=== PATIENT | male | born 1950 | race Caucasian/White ===

== ENCOUNTER 2016-12-06 23:13 | Inpatient (IN) | payer MEDICAID ==
[~2016-12-06] VITALS: Ht 170.2 cm; Wt 72.1 kg
[~2016-12-06 23:13] MED LIST: ALBU17I; ALBU1AER INH; AMLO10 PO; CIPR250 PO; CITA-48 PO; DUONI NEB; ECOT81TA2 PO; HYDR10TA23 PO; ISOS30 PO; LANTUS2P SC; LANTUSP SQ; LEVE500 PO; LOSA50 PO; LOVA40TA PO; METO50TA PO; NEUR100C PO; NITR.4 SL; NOVOLOGP2 SQ; OXYC1SOL5 PO; SYMB160A INH; Z.0.WALKERFRONT
[2016-12-06 23:15] VITALS: O2SAT 100; O2SAT 99
[2016-12-06 23:16] VITALS: BP 160/96; PULSE 128; RESP 20; TEMP 99.4; O2SAT 100
[2016-12-06 23:24] VITALS: RESP 20; O2SAT 100
[2016-12-06] MEDS ORDERED: FUROSEMIDE 40 MG/4 ML VIAL IVP ONE (23:30)
[2016-12-06] MEDS ORDERED: methylPREDNISolone SOD SUCC 125 MG/2 ML VIAL IVP ONE (23:30)
--- NOTE | 2016-12-06 23:35 | PD ---
HPI Chief Complaint: Respiratory Distress Time Seen by Provider: 23:19 Travel History International Travel<30 days: No Contact w/Intl Traveler<30days: No Traveled to known affect area: No History of Present Illness HPI The patient is Slovak-speaking and understands a little bit of Ethiopian. Patient was brought in emergently. Staff was used for translation given emergent nature of patient presentation. Patient's 18-year-old son was also used for translation as well as to obtain history. 66-year-old male with history of asthma, CHF, brought in by them was from home for chest pain and shortness of breath. EMS noted the patient to be in significant respiratory distress with bilateral wheezes and rales. He was started on CPAP and provided 3 albuterol treatments prior to arriving to the emergency department. Upon arrival the patient is in moderate respiratory distress, speaking a few words at a time. He reports feeling better on CPAP. He is having mild substernal chest pain. He was immediately switched to BiPAP. According to his son the patient has not been feeling well for the last couple of days with some episodes of coughing and shortness of breath. Symptoms seemed to progressively worsen throughout the day today. PFSH Past Medical History Asthma: Yes Blood Disorders: No Cancer: No Cardiovascular Problems: Yes High Cholesterol: Yes Chest Pain: Yes COPD: Yes Cerebrovascular Accident: Yes (CVA) Diabetes: Yes (TYPE 2) Patient Takes Glucophage: No Diminished Hearing: No Endocrine: No Gastrointestinal Disorders: Yes Genitourinary: No Headaches: Yes Hypertension: Yes Immune Disorder: No Musculoskeletal: Yes (L-SIDED WEAKNESS S/P CVA) Neurologic: Yes Psychiatric: No Reproductive: No Respiratory: Yes (ASTHMA) Immunizations Current: Yes Thyroid Disease: No Tetanus Vaccination: < 5 Years Influenza Vaccination: Yes PNEUMOCCOCAL Vaccine (Year): 3 Past Surgical History Abdominal Surgery: Yes Appendectomy: Yes Endocrine Surgery: No Neurologic Surgery: Yes (RUPTURED CEREBRAL ANYEURISM REPAIR, VENTRICULOSTOMY) Oral Surgery: Yes Other Surgery: Yes Social History Alcohol Use: No Tobacco Use: No Substance Use: No Allergies-Medications (Allergen,Severity, Reaction): Coded Allergies: No Known Allergies (Verified , 04/08/15) Reported Meds & Prescriptions Reported Meds & Active Scripts Active Reported Lantus Solostar Pen Inj (Insulin Glargine) 300 Unit/3 Ml Pen 1 Units SQ Novolog Inj (Insulin Aspart) 1,000 Unit/10 Ml Vial 12-15 Units SQ ACHS Max dose at bedtime:( )units; sugars less than 70,(0) units; sugars 150-199,(5) units; sugars 200-249,(10) units; sugars 250-299,(15) units; sugars 300-349,(20)units; sugars greater than 349,(25)units Citalopram (Citalopram Hydrobromide) 20 Mg Tab 20 Mg PO HS Lovastatin 40 Mg Tab 40 Mg PO DAILY Ventolin Hfa 18 GM Inh (Albuterol Sulfate) 90 Mcg/Act Aer 2 Puff INH Q4-6H PRN Lasix (Furosemide) 20 Mg Tab 20 Mg PO DAILY Aspirin EC (Aspirin) 81 Mg Tabdr 81 Mg PO DAILY Amlodipine (Amlodipine Besylate) 10 Mg Tab 10 Mg PO DAILY Losartan (Losartan Potassium) 50 Mg Tab 50 Mg PO DAILY Advair Hfa 12 GM Inh (Fluticasone-Salmeterol 12 GM Inh) 230-21 Mcg/Act Aer 2 Puff INH BID Review of Systems Except as stated in HPI: all other systems reviewed are Neg Physical Exam Narrative GENERAL: Well-developed, well-nourished, moderate to severe respiratory distress , speaking 1-2 words at a time, on CPAP SKIN: Focused skin assessment warm/dry. HEAD: Atraumatic. Normocephalic. EYES: Pupils equal and round. No scleral icterus. No injection or drainage. ENT: Mucous membranes pink and moist. NECK: Trachea midline. No JVD. CARDIOVASCULAR: Regular rate and rhythm. No murmur appreciated. RESPIRATORY: No accessory muscle use. On CPAP. Moderate to severe respiratory distress. Bilateral inspiratory and expiratory wheezes. Bilateral rales. GASTROINTESTINAL: Abdomen soft, non-tender, nondistended. MUSCULOSKELETAL: No obvious deformities. No clubbing. No cyanosis. Moderate bilateral lower extremity edema. NEUROLOGICAL: Awake and alert. No obvious cranial nerve deficits. Motor grossly within normal limits. Normal speech. PSYCHIATRIC: Appropriate mood and affect; insight and judgment normal. Data Data Last Documented VS Vital Signs Date Time Temp Pulse Resp B/P Pulse Ox O2 Delivery O2 Flow Rate FiO2 12/06/16 23:24 100 BiPAP 35 12/06/16 23:24 20 12/06/16 23:16 99.4 128 160/96 Orders Complete Blood Count With Diff (12/06/16 23:19) Comprehensive Metabolic Panel (12/06/16 23:19) B-Type Natriuretic Peptide (12/06/16 23:19) Act Partial Throm Time (Ptt) (12/06/16 23:19) Prothrombin Time / Inr (Pt) (12/06/16 23:19) Magnesium (Mg) (12/06/16 23:19) Ckmb (Isoenzyme) Profile (12/06/16 23:19) Troponin I (12/06/16 23:19) Arterial Blood Gas (Abg) (12/06/16 23:19) Blood Culture (12/06/16 23:19) Iv Access Insert/Monitor (12/06/16 23:) Ecg Monitoring (12/06/16 23:) Oximetry (12/06/16 23:) Oxygen Administration (12/06/16 23:19) Chest, Single Ap (12/06/16 23:19) Sodium Chloride 0.9% Flush (Ns Flush) (12/06/16 23:30) Furosemide Inj (Lasix Inj) (12/06/16 23:30) Methylprednisolone So Succ Inj (Solumedr (12/06/16 23:30) Albuterol-Ipratropium Neb (Duoneb Neb) (12/06/16 23:30) Resp Bipap / Cpap Non Invas Vt (12/06/16 23:19) Ceftriaxone Inj (Rocephin Inj) (12/07/16 00:00) Azithromycin Inj (Zithromax Inj) (12/07/16 00:00) Acetaminophen Supp (Tylenol Supp) (12/07/16 00:15) Sodium Chlor 0.9% 1000 Ml Inj (Ns 1000 M (12/07/16 00:01) Type And Screen (12/07/16 00:10) Sodium Chlor 0.9% 1000 Ml Inj (Ns 1000 M (12/07/16 00:30) Urinary Catheter Insert/Apply (12/07/16 00:22) Lactic Acid (12/07/16 00:29) CKMB (12/06/16 23:25) CKMB% (12/06/16 23:25) Labs Laboratory Tests Test 12/06/16 12/06/16 23:25 23:48 White Blood Count 7.2 TH/MM3 Red Blood Count 2.72 MIL/MM3 Hemoglobin 8.0 GM/DL Hematocrit 24.2 % Mean Corpuscular Volume 89.0 FL Mean Corpuscular Hemoglobin 29.2 PG Mean Corpuscular Hemoglobin 32.8 % Concent Red Cell Distribution Width 15.1 % Platelet Count 260 TH/MM3 Mean Platelet Volume 8.1 FL Neutrophils (%) (Auto) 78.8 % Lymphocytes (%) (Auto) 8.7 % Monocytes (%) (Auto) 10.3 % Eosinophils (%) (Auto) 1.6 % Basophils (%) (Auto) 0.6 % Neutrophils # (Auto) 5.7 TH/MM3 Lymphocytes # (Auto) 0.6 TH/MM3 Monocytes # (Auto) 0.7 TH/MM3 Eosinophils # (Auto) 0.1 TH/MM3 Basophils # (Auto) 0.0 TH/MM3 CBC Comment DIFF FINAL Differential Comment Prothrombin Time 10.7 SEC Prothromb Time International 1.0 RATIO Ratio Activated Partial 32.9 SEC Thromboplast Time Sodium Level 135 MEQ/L Potassium Level 4.9 MEQ/L Chloride Level 108 MEQ/L Carbon Dioxide Level 15.8 MEQ/L Anion Gap 11 MEQ/L Blood Urea Nitrogen 61 MG/DL Creatinine 7.77 MG/DL Estimat Glomerular Filtration 7 ML/MIN Rate Random Glucose 214 MG/DL Calcium Level 8.3 MG/DL Magnesium Level 1.7 MG/DL Total Bilirubin 0.3 MG/DL Aspartate Amino Transf 18 U/L (AST/SGOT) Alanine Aminotransferase 18 U/L (ALT/SGPT) Alkaline Phosphatase 122 U/L Total Creatine Kinase 607 U/L Troponin I 2.18 NG/ML B-Type Natriuretic Peptide 512 PG/ML Total Protein 7.6 GM/DL Albumin 2.8 GM/DL Blood Gas Patient Temperature 98.6 Blood Gas HCO3 14 mmol/L Blood Gas Base Excess -10.8 mmol/L Blood Gas Oxygen Saturation 95 % Arterial Blood pH 7.33 Arterial Blood Partial 27 mmHg Pressure CO2 Arterial Blood Partial 122 mmHG Pressure O2 Arterial Blood Oxygen Content 10.5 Vol % Arterial Blood 1.1 % Carboxyhemoglobin Arterial Blood Methemoglobin 1.8 % Blood Gas Hemoglobin 7.6 G/DL Oxygen Delivery Device NPPV Blood Gas Ventilator Setting IPAP12/EPAP5 Blood Gas Inspired Oxygen 35 % MDM Medical Decision Making Medical Screen Exam Complete: Yes Emergency Medical Condition: Yes Medical Record Reviewed: Yes Interpretation(s) EKG: Sinus, rate 1:30, leftward axis, RBBB which is old, anterior and lateral ST depressions, no ST segment elevations. Differential Diagnosis CHF, pulmonary edema, pneumonia, COPD exacerbation, pneumothorax, PE, ACS Narrative Course Initial vital signs show heart rate 128, blood pressure 160/96, pulse ox 100% on 50% FiO2 on BiPAP, axillary temp of 99.4F. CBC shows WBC 7.2, hemoglobin 8, hematocrit 24.2, platelets 260, neutrophils 79% . Rectal exam shows heme-negative brown stool. CMP: BUN 61, creatinine 7.77, GFR 7, random glucose 214. Troponin is 2.18. CK is 600. Liter of normal saline bolus ordered. Young catheter will be placed to measure accurate output. Chest x-ray: Bilateral lower lobe consolidation. Patient was started on Rocephin and azithromycin. He was also started on CPAP EMS and continued on BiPAP while in the emergency department. He was given 40 mg of IV Lasix, 3 DuoNeb treatments, and IV Solu-Medrol. He reports that his breathing is improved. He is still requiring BiPAP. Patient, the patient's son, the patient's were made aware of all findings. Patient is still requiring BiPAP. He will be admitted to the ICU for further treatment and evaluation of sepsis, pneumonia, respiratory distress, NSTEMI, acute renal insufficiency. Case discussed with vending supervisor Dr. Garcia who will admit the patient to his service. Critical Care Narrative Aggregate critical care time was 45 minutes. Time to perform other separately billable procedures was not included in the critical care time. My time did not include minutes spent treating any other patients simultaneously or on activities that did not directly contribute to the patient's treatment. The services I provided to this patient were to treat and/or prevent clinically significant deterioration that could result in: , permanent disability, acute respiratory failure. I provided critical care services requiring my management, as noted below: Chart data review, documentation time, medication orders and management, vital sign assessments/reviewing monitor data, ordering and reviewing lab tests, ordering and interpreting/reviewing x-rays and diagnostic studies, care of the patient and discussion of the patient with the admitting physicians. HemaPrompt Point of Care Internal Pos. & Neg. Controls: Passed Fecal Specimen Occult Blood: Negative Comment Heme-negative brown stool. Diagnosis Primary Impression: Sepsis Qualified Code: A41.9 - Sepsis, due to unspecified organism Additional Impressions: Pneumonia Qualified Code: J18.9 - Pneumonia of both lower lobes due to infectious organism Respiratory distress Anemia Qualified Code: D64.89 - Anemia due to other cause, not classified ARF (acute renal failure) Qualified Code: N17.9 - Acute renal failure, unspecified acute renal failure type NSTEMI (non-ST elevated myocardial infarction) Admitting Information Admitting Physician Requests: Jacques Ring MD Dec 06, 2016 23:35
[2016-12-06] MEDS: SODIUM CHLORIDE 0.9% FLUSH 10 ML FLUSH IVF PRN (23:38)
[2016-12-06] MEDS: RESP: ALBUTEROL 2.5 MG/IPRATROPIUM 0.5 MG NEB (SCH) INH ×2 (23:39→23:40)
[2016-12-06] MEDS ORDERED: VENTAER INH (23:43)
[2016-12-06] MEDS ORDERED: AMLO10TA2 PO (23:43)
[2016-12-06] MEDS ORDERED: NOVOLOGP2 SQ (23:43)
[2016-12-06] MEDS ORDERED: CITA20TA4 PO (23:43)
[2016-12-06] MEDS ORDERED: ASPI81TA11 PO (23:43)
[2016-12-06] MEDS ORDERED: LOSA50TA PO (23:43)
[2016-12-06] MEDS ORDERED: LOVA40TA PO (23:43)
[2016-12-06] MEDS ORDERED: LANTINJ SQ (23:43)
[2016-12-06] MEDS ORDERED: FURO1TAB62 PO (23:43)
[2016-12-06] MEDS ORDERED: ADVA230A INH (23:43)
--- NOTE | 2016-12-06 23:52 | RADRPT ---
EXAM DATE/TIME: 12/06/2016 23:29 [facility] COMPARISON: CHEST SINGLE AP, April 08, 2015, 20:45. INDICATIONS : Short of breath. MEDICAL HISTORY : Hypertension. Diabetes. Coronary artery disease SURGICAL HISTORY : Ventriculostomy. Cerebral aneurysm repair. ENCOUNTER: Initial ACUITY: 1 day PAIN SCORE: Non-responsive. LOCATION: Bilateral chest FINDINGS: There is bilateral lower lobe consolidation and cardiomegaly. Shunt catheter tubing overlies the righ t chest. Degenerative changes of the spine. CONCLUSION: Bilateral lower lobe consolidation. Sarabjit Tinsley MD on December 06, 2016 at 23:50 Board Certified Radiologist. This report was verified electronically.
[2016-12-07] VITALS (24 sets, daily range): BP systolic 115–183; BP diastolic 60–106; PULSE 90–135; RESP 15–21; TEMP 97–99.4; O2SAT 92–100
[2016-12-07] LABS: BLOOD GAS BASE EXCESS -10.8 mmol/L (-2-2); BLOOD GAS CARBOXYHEMOGLOBIN 1.1 % (0-4); BLOOD GAS HCO3 14 mmol/L (22-26); BLOOD GAS METHEMOGLOBIN 1.8 % (0-2); BLOOD GAS O2 HGB SATURATION 95 % (90-100); BLOOD GAS OXYGEN CONTENT 10.5 Vol % (12.0-20.0); BLOOD GAS PCO2 27 mmHg (38-42); BLOOD GAS PO2 122 mmHG (61-120); BLOOD GAS TOTAL HGB 7.6 G/DL (12.0-16.0); TEMP CORR TO 98.6
[2016-12-07] MEDS ORDERED: cefTRIAXone INJ 1,000 MG in SODIUM CHLORIDE 0.9% INJ 100 ML IV ONE ×2
[2016-12-07] MEDS ORDERED: AZITHROMYCIN INJ 500 MG in SODIUM CHLOR 0.9% 250 ML INJ 250 ML IV ONE ×2
[2016-12-07 00:01] LABS: CRITICAL VALUE YES; FIO2 35 %; NUMBER OF ARTERIAL PUNCTURES 1; OXYGEN DEVICE NPPV; STAT YES; ULNAR PULSE PRESENT; VENT SETTINGS IPAP12/EPAP5
[2016-12-07] MEDS ORDERED: SODIUM CHLOR 0.9% 1000 ML INJ 1,000 ML IV SCH ×2 (00:01→15:28)
[2016-12-07 00:06] LABS: AUTOMATED NEUTROPHIL # 5.7 TH/MM3 (1.8-7.7); BASOPHIL % 0.6 % (0.0-2.0); EOSINOPHIL # 0.1 TH/MM3 (0-0.4); EOSINOPHIL % 1.6 % (0.0-4.0); HEMATOCRIT 24.2 % (39.0-51.0); HEMO FLAGS DIFF FINAL; LYMPH % 8.7 % (9.0-44.0); LYMPHOCYTE # 0.6 TH/MM3 (1.0-4.8); MEAN CORPUSCULAR HEMOGLOBIN 29.2 PG (27.0-34.0); MEAN CORPUSCULAR HGB CONC 32.8 % (32.0-36.0); MONO % 10.3 % (0.0-8.0); NEUT % 78.8 % (16.0-70.0); PLATELET COUNT 260 TH/MM3 (150-450); RED BLOOD COUNT 2.72 MIL/MM3 (4.50-5.90); RED CELL DISTRIBUTION WIDTH 15.1 % (11.6-17.2); WHITE BLOOD COUNT 7.2 TH/MM3 (4.0-11.0)
[2016-12-07] MEDS ORDERED: ACETAMINOPHEN 650 MG SUPP RECTAL ONE (00:15)
[2016-12-07 00:18] LABS: ANION GAP 11 MEQ/L (5-15); AST (GOT) 18 U/L (15-37); BICARBONATE 15.8 MEQ/L (21.0-32.0); BLOOD UREA NITROGEN 61 MG/DL (7-18); CHLORIDE 108 MEQ/L (98-107); GLOMERULAR FILTRATION RATE 7 ML/MIN (>89); MAGNESIUM 1.7 MG/DL (1.5-2.5); POTASSIUM 4.9 MEQ/L (3.5-5.1); SODIUM (NA) 135 MEQ/L (136-145)
[2016-12-07 00:19] LABS: ALT (GPT) 18 U/L (12-78)
[2016-12-07 00:20] LABS: APTT (PATIENT) 32.9 SEC (24.3-30.1); PROTHROMBIN TIME - PATIENT 10.7 SEC (9.8-11.6)
[2016-12-07 00:23] LABS: ALKALINE PHOSPHATASE 122 U/L (45-117); CREATINE KINASE 607 U/L (39-308); TOTAL BILIRUBIN ADULT 0.3 MG/DL (0.2-1.0)
[2016-12-07] MEDS ORDERED: SODIUM CHLOR 0.9% 1000 ML INJ 1,000 ML IV ONE (00:30)
[2016-12-07 00:44] LABS: CKMB 9.8 NG/ML (0.5-3.6)
[2016-12-07] MEDS ORDERED: MISCELLANEOUS NURSING INFORMATION XX SCH ×2 (00:45→15:30)
[2016-12-07] MEDS ORDERED: DEXTROSE 50% IN WATER 50 ML VIAL(D50) IV PUSH PRN (00:45)
[2016-12-07] MEDS ORDERED: CHLORHEXIDINE GLUCONATE 2 % 1 PACK (2 CLOTHS) TOP PRN ×2 (00:45→15:30)
[2016-12-07] MEDS ORDERED: RESP: ALBUTEROL 2.5 MG/IPRATROPIUM 0.5 MG NEB (PRN) INH (00:45)
[2016-12-07] MEDS ORDERED: ONDANSETRON HCL 4 MG/2 ML VIAL IV PRN (00:45)
[2016-12-07] MEDS: SODIUM CHLOR 0.9% 1000 ML INJ 1,000 ML IV SCH ×2 (01:55→11:45)
[2016-12-07] MEDS: HEPARIN-D5W 25,000 U/250 ML 250 ML IV SCH (02:05)
[2016-12-07 02:23] LABS: HEMATOCRIT 22.4 % (39.0-51.0); MEAN CORPUSCULAR HEMOGLOBIN 30.2 PG (27.0-34.0); MEAN CORPUSCULAR HGB CONC 34.4 % (32.0-36.0); PLATELET COUNT 234 TH/MM3 (150-450); RED BLOOD COUNT 2.55 MIL/MM3 (4.50-5.90); REVIEW FLAG FINAL; WHITE BLOOD COUNT 8.5 TH/MM3 (4.0-11.0)
--- NOTE | 2016-12-07 02:23 | HHI.HP ---
HPI Service Critical Care Medicine Primary Care Physician No Primary Care Physician Admission Diagnosis sepsis, NSTEMI, pneumonia, renal failure, respiratory distress Diagnosis: Chief Complaint: shortness of breath Travel History International Travel<30 Days: No Contact w/Intl Traveler <30 Da: No Traveled to Known Affected Are: No History of Present Illness This patient is georgian speaking only, and his family was not available to assist in interpretation. In addition, he is in respiratory distress on my evaluation, and additional history is unobtainable from the patient. Per report , this is a 66yM with a history of CHF and prior NSTEMI who presented for shortness of breath. He was hypoxic in ER and placed on BiPAP. He was febrile in the ER. His laboratory data is significant for a leukocytosis, lactic acidosis, Cr 7.7, troponin of 2. Review of Systems ROS Limitations: Clinical Condition, Language Barrier Past Family Social History Allergies: Coded Allergies: No Known Allergies (Verified , 04/08/15) Past Medical History Asthma High cholesterol CVA Type 2 DM Headaches Hypertension L sided weakness s/p CVA Past Surgical History Appendectomy Ruptured cerebral aneurysm Ventriculostomy Reported Medications Lantus Solostar Pen Inj (Insulin Glargine) 300 Unit/3 Ml Pen 1 Units SQ Novolog Inj (Insulin Aspart) 1,000 Unit/10 Ml Vial 12-15 Units SQ ACHS Max dose at bedtime:( )units; sugars less than 70,(0) units; sugars 150-199,(5) units; sugars 200-249,(10) units; sugars 250-299,(15) units; sugars 300-349,(20)units; sugars greater than 349,(25)units Citalopram (Citalopram Hydrobromide) 20 Mg Tab 20 Mg PO HS Lovastatin 40 Mg Tab 40 Mg PO DAILY Ventolin Hfa 18 GM Inh (Albuterol Sulfate) 90 Mcg/Act Aer 2 Puff INH Q4-6H PRN Lasix (Furosemide) 20 Mg Tab 20 Mg PO DAILY Aspirin EC (Aspirin) 81 Mg Tabdr 81 Mg PO DAILY Amlodipine (Amlodipine Besylate) 10 Mg Tab 10 Mg PO DAILY Losartan (Losartan Potassium) 50 Mg Tab 50 Mg PO DAILY Advair Hfa 12 GM Inh (Fluticasone-Salmeterol 12 GM Inh) 230-21 Mcg/Act Aer 2 Puff INH BID Active Ordered Medications See MAR Family History unknown and unobtainable secondary to the clinical condition of the patient. Social History per chart review, no etoh, tob, doa. Physical Exam Vital Signs Vital Signs Date Time Temp Pulse Resp B/P Pulse Ox O2 Delivery O2 Flow Rate FiO2 12/07/16 01:36 99.3 116 21 183/88 99 BiPAP 35 12/07/16 01:31 99 35 12/07/16 00:57 99.3 119 21 169/83 99 BiPAP 35 12/06/16 23:24 100 BiPAP 35 12/06/16 23:24 20 100 BiPAP 35 12/06/16 23:16 99.4 128 20 160/96 100 12/06/16 23:15 99 50 12/06/16 23:15 100 BiPAP 50 Physical Exam GENERAL: Obese middle-aged male, sitting in bed, BiPAP in place, respiratory distress HEENT: Normocephalic. Atraumatic. Pupils equal, round, reactive, conjugate. Mucous membranes are moist NECK: Trachea is midline. There is no JVD. CHEST: BiPAP in place. Labored. Tachypneic CARDIOVASCULAR: Normal rate, regular rhythm ABDOMEN: Soft, nontender, nondistended. No guarding. MUSCULOSKELETAL: Pulses 2+. No peripheral edema. NEUROLOGICAL: RASS -1. fc x 4. Laboratory Laboratory Tests Test 12/06/16 12/06/16 12/07/16 23:25 23:48 01:00 White Blood Count 7.2 Red Blood Count 2.72 Hemoglobin 8.0 Hematocrit 24.2 Mean Corpuscular Volume 89.0 Mean Corpuscular Hemoglobin 29.2 Mean Corpuscular Hemoglobin 32.8 Concent Red Cell Distribution Width 15.1 Platelet Count 260 Mean Platelet Volume 8.1 Neutrophils (%) (Auto) 78.8 Lymphocytes (%) (Auto) 8.7 Monocytes (%) (Auto) 10.3 Eosinophils (%) (Auto) 1.6 Basophils (%) (Auto) 0.6 Neutrophils # (Auto) 5.7 Lymphocytes # (Auto) 0.6 Monocytes # (Auto) 0.7 Eosinophils # (Auto) 0.1 Basophils # (Auto) 0.0 CBC Comment DIFF FINAL Differential Comment Prothrombin Time 10.7 Prothromb Time International 1.0 Ratio Activated Partial 32.9 Thromboplast Time Sodium Level 135 Potassium Level 4.9 Chloride Level 108 Carbon Dioxide Level 15.8 Anion Gap 11 Blood Urea Nitrogen 61 Creatinine 7.77 Estimat Glomerular Filtration 7 Rate Random Glucose 214 Calcium Level 8.3 Magnesium Level 1.7 Total Bilirubin 0.3 Aspartate Amino Transf 18 (AST/SGOT) Alanine Aminotransferase 18 (ALT/SGPT) Alkaline Phosphatase 122 Total Creatine Kinase 607 Creatine Kinase MB 9.8 Creatine Kinase MB % 1.6 Troponin I 2.18 B-Type Natriuretic Peptide 512 Total Protein 7.6 Albumin 2.8 Blood Gas Patient Temperature 98.6 Blood Gas HCO3 14 Blood Gas Base Excess -10.8 Blood Gas Oxygen Saturation 95 Arterial Blood pH 7.33 Arterial Blood Partial 27 Pressure CO2 Arterial Blood Partial 122 Pressure O2 Arterial Blood Oxygen Content 10.5 Arterial Blood 1.1 Carboxyhemoglobin Arterial Blood Methemoglobin 1.8 Blood Gas Hemoglobin 7.6 Oxygen Delivery Device NPPV Blood Gas Ventilator Setting IPAP12/EPAP5 Blood Gas Inspired Oxygen 35 Lactic Acid Level 2.2 Date/Time Procedure Status Source Growth 12/06/16 23:25 Aerobic Blood Culture Received Blood Peripheral Pending 12/06/16 23:25 Anaerobic Blood Culture Received Blood Peripheral Pending Result Diagram: 12/06/[id number] Imaging Last Impressions Chest X-Ray 12/06/162318 Signed Impressions: Service Date/Time: Tuesday, December 06, 2016 23:29 - CONCLUSION: Bilateral lower lobe consolidation. Sarabjit Tinsley MD Assessment and Plan Assessment and Plan Assessment: 66yM with acute bibasilar community acquired pneumonia, severe sepsis, lactic acidosis, acute kidney injury, acute hypoxic respiratory failure , multi-organ system failure, NSTEMI. very critically ill. Plan by systems: Neurologic: Tylenol as needed for pain or fever Respiratory: Acute hypoxic respiratory failure COPD exacerbation Bilateral lower lobe pneumonias Community acquired pneumonia BiPAP Steroids Wean FiO2 for SPO2 greater than 90% Antibiotics described below Nebs Cardiovascular: Severe sepsis NSTEMI Critical care bedside echocardiography 12/07: Mildly depressed LVEF no grossly obvious regional wall motion abnormalities, normal RV function, decompressed RV , no pericardial effusion -- heparin drip -- trend troponins -- consult cardiology Renal: New severe acute kidney injury Consult nephrology urine lytes -- urine eos -- renal ultrasound -- meadows with q1h uop -- Strict I/Os FEN/GI: Severe sepsis Intravascular hypovolemia NS at 100 cc an hour Daily BMP Nothing by mouth Heme/ID: Community acquired bilateral lower lobe pneumonia Severe sepsis Rocephin and azithromycin Mills culture Daily CBC Endocrine: Type 2 diabetes -- SSI Prophylaxis: GI Prophylaxis Protonix DVT Prophylaxis -- SCDs Heparin drip Lines: Peripheral IVs. May require central access Dispo: Admit to the ICU This patient remains critically ill with one or more organ systems which are or may become a threat to life. I have spent in excess of 78 minutes discontinuously in the care and management of this patient. This time is exclusive of procedures, and includes, but is not limited to, evaluation of the patient, review of the medical record, discussions with family, consultants, nursing staff, or respiratory therapy, and documentation in the medical record. Code Status Full Code Nas Garcia MD Dec 07, 2016 02:23
[2016-12-07 02:35] LABS: APTT (PATIENT) 33.2 SEC (24.3-30.1)
[2016-12-07] MEDS: RESP: ALBUTEROL 2.5 MG/IPRATROPIUM 0.5 MG NEB (SCH) INH ×4 (03:03→21:22)
[2016-12-07] MEDS: CHLORHEXIDINE GLUCONATE 2 % 1 PACK (2 CLOTHS) TOP SCH (03:52)
[2016-12-07] MEDS: INSULIN NovoLIN REGULAR SUPPLEMENTAL SCALE SQ SCH ×3 (06:00→17:37)
[2016-12-07 06:40] LABS: DRAW SITE RT RADIAL
[2016-12-07 06:41] LABS: BLOOD GAS BASE EXCESS -11.6 mmol/L (-2-2); BLOOD GAS HCO3 13 mmol/L (22-26); BLOOD GAS METHEMOGLOBIN 2.2 % (0-2); BLOOD GAS O2 HGB SATURATION 95 % (90-100); BLOOD GAS PCO2 26 mmHg (38-42); BLOOD GAS PO2 120 mmHg (61-120); BLOOD GAS TOTAL HGB 11.1 G/DL (12.0-16.0); TEMP CORR TO 98.6
[2016-12-07 06:42] LABS: CRITICAL VALUE YES; DRAW SITE RT RADIAL; FIO2 35 %; NUMBER OF ARTERIAL PUNCTURES 1; OXYGEN DEVICE BiPAP; STAT NO; ULNAR PULSE PRESENT; VENT SETTINGS 10IPAP/5EPAP
[2016-12-07] MEDS: methylPREDNISolone SOD SUCC 125 MG/2 ML VIAL IV PUSH SCH ×2 (08:57→20:13)
[2016-12-07] MEDS: SODIUM CHLORIDE 0.9% FLUSH 10 ML FLUSH IVF PRN (08:58)
--- NOTE | 2016-12-07 09:05 | RADRPT ---
EXAM DATE/TIME: 12/07/2016 07:54 [facility] COMPARISON: US KIDNEY/RENAL/BLADDER, January 28, 2015, 20:59. INDICATIONS : Increased Bun and Creatinine. MEDICAL HISTORY : CVA. Ruptured cerebral aneurysm. Hypercholesterol. Hypertension. COPD. SURGICAL HISTORY : Appendectomy. Cerebral aneurysm repair. Ventriculostomy. ENCOUNTER: Initial ACUITY: 1 day PAIN SCORE: 0/10 LOCATION: Bilateral flank MEASUREMENTS: RIGHT KIDNEY: 10.7 x 5.7 x 4.1 cm LEFT KIDNEY: 10.3 x 4.8 x 6.1 cm FINDINGS: RIGHT KIDNEY: Renal cortex is normal in thickness and echotexture. No hydronephrosis, stone, or mass. LEFT KIDNEY: Renal cortex is normal in thickness and echotexture. No hydronephrosis, stone, or mass. BLADDER: Young catheter in bladder. Bladder decompressed. CONCLUSION: Unremarkable and stable bilateral renal ultrasound. No evidence of hydronephrosis. Baron Medrano MD on December 07, 2016 at 9:03 Board Certified Radiologist. This report was verified electronically.
[2016-12-07 11:25] LABS: BLOOD, URINE LARGE (NEG); GLUCOSE,URINE 70 mg/dL (NEG); HYALINE CAST, URINE 2 /lpf (RARE); KETONE, URINE NEG (NEG); NITRITE,URINE NEG (NEG); URINE COLOR YELLOW (YELLW/STRAW)
[2016-12-07 11:31] LABS: BACTERIA, URINE OCC /hpf; COMMENT (UR) CATH
--- NOTE | 2016-12-07 11:55 | EKG ---
Date Performed: 12/06/2016 Time Performed: 23:18:27 PTAGE: 66 years EKG: Sinus tachycardia Right bundle branch block Anterior ST depressions are new from the old tr acing, and consistent with ischemia. Clinical correlation advised. PREVIOUS TRACING : 04/09/2015 19.46 DOCTOR: Abdi Garcia Interpretating Date/Time 12/07/2016 11:53:28
[2016-12-07] MEDS ORDERED: ETOMIDATE 20 MG/10 ML VIAL ONE (13:23)
[2016-12-07] MEDS ORDERED: ROCURONIUM INJ 50 MG/5 ML VIAL ONE ×2 (13:24→13:41)
[2016-12-07] MEDS ORDERED: PROPOFOL 1000 MG/100 ML INJ 100 ML ONE (13:43)
--- NOTE | 2016-12-07 14:35 | RADRPT ---
EXAM DATE/TIME: 12/07/2016 13:45 [facility] COMPARISON: CHEST SINGLE AP, December 06, 2016, 23:29. INDICATIONS : Post intubation. MEDICAL HISTORY : CVA. Ruptured cerebral aneurysm. Hypercholesterol. Hypertension. COPD. SURGICAL HISTORY : Appendectomy. Cerebral aneurysm repair. Ventriculostomy. ENCOUNTER: Subsequent ACUITY: 1 day PAIN SCORE: 0/10 LOCATION: Bilateral chest FINDINGS: A single view of the chest demonstrates the endotracheal tube to be in good position. There is no pne umothorax. There is an NG tube in the stomach. There is bilateral interstitial infiltrates. The heart size is stable. The bony structures are stable.. CONCLUSION: 1. The endotracheal tube and NG tube appear to be in good position. 2. No pneumothorax. Baron Medrano MD on December 07, 2016 at 14:32 Board Certified Radiologist. This report was verified electronically.
[2016-12-07] MEDS ORDERED: ROCURONIUM INJ 100 MG/10 ML VIAL IV ONE (14:45)
[2016-12-07] MEDS ORDERED: ETOMIDATE 40 MG/20 ML VIAL IV PUSH ONE (14:45)
--- NOTE | 2016-12-07 15:21 | PD.PROCEDR ---
Central Line Procedure REASON FOR PROCEDURE Central venous access PROCEDURE PERFORMED Central line placement: Left IJ CVL CONSENT Informed consent for procedure was obtained. The risks and benefits of the procedure were discussed to include but limited to bleeding, clot formation, infection, and even . ANESTHESIA Local injection of 1% Lidocaine DESCRIPTION OF THE PROCEDURE The patient was placed in supine, mild Trendelenburg position. The area was exposed and cleansed with ChloraPrep, times two. Large sterile drape was used to cover the patient, with the site exposed, under sterile conditions including cap, face mask, sterile gown, and sterile gloves. On second attempt, the introducer needle was inserted with negative pressure in syringe and venous flash was obtained. The guide wire was then advanced after second insertion attempt without any restriction and the needle was removed. The dilator was used without any complications. Using Seldinger technique the antibiotic coated triple-lumen catheter was advanced over the guide wire to a depth of 20 centimeters. The guide wire was removed. All ports were aspirated with dark venous blood return and flushed easily with sterile saline. All ports were capped. Antibiotic disc was placed around central line at puncture site. The central line was secured to the skin with two interrupted 2.0 silk sutures. The area was bandaged with sterile see-through central line bandage. RADIOLOGICAL DATA Ultrasound guidance was used to locate left internal jugular vein. Doppler/ color flow was used to confirm venous flow. COMPLICATIONS: No apparent complications ESTIMATED BLOOD LOSS: Less than 10 cc. Jeronimo Robertson MD Dec 07, 2016 15:21
--- NOTE | 2016-12-07 15:22 | PD.PROCEDR ---
Procedure Note Procedure DATE: 12/07/2016 PROCEDURE: Orotracheal intubation INDICATION: Acute hypoxemic respiratory failure DETAILS OF PROCEDURE The patient was placed in optimal position and preoxygenated with 100% FiO2 via bag valve mask. At the start oxygen saturation was 100 %. The patient was administered 20 mg etomidate IV and 50 mg rocuronium IV. I entered the oropharynx with a size 4 GVL glidescope blade and obtained a grade 2 view of the airway. On single attempt a size 8.0 cuffed endotracheal tube was passed through the vocal cords. Correct tube location was confirmed with end tidal CO2 detector and by auscultating over bilateral lung boothe. The endotracheal tube was secured with adhesive tape at a depth of 24 cm at the lips. The patient was connected to the ventilator. The patient tolerated the procedure well without any apparent complications. Oxygen saturations were maintained greater than 95% all times. STAT chest x-ray pending at time of dictation. Jeronimo Robertson MD Dec 07, 2016 15:22
[2016-12-07] MEDS ORDERED: SODIUM CHLORIDE 0.9% FLUSH 10 ML FLUSH IVF PRN (15:30)
[2016-12-07] MEDS ORDERED: BISACODYL 10 MG SUPP RECTAL PRN (15:30)
[2016-12-07] MEDS ORDERED: ETOMIDATE 20 MG/10 ML VIAL IV PUSH ONE (16:00)
[2016-12-07] MEDS ORDERED: ROCURONIUM INJ 50 MG/5 ML VIAL IV PUSH ONE (16:00)
--- NOTE | 2016-12-07 16:14 | RADRPT ---
EXAM DATE/TIME: 12/07/2016 15:30 [facility] COMPARISON: CHEST SINGLE AP, December 07, 2016, 13:45. INDICATIONS : Central line placement. MEDICAL HISTORY : Hypertension. cerebrovascular accident, SURGICAL HISTORY : cerebral aneurysm ENCOUNTER: Initial ACUITY: 2 days PAIN SCORE: Non-responsive. LOCATION: Bilateral chest FINDINGS: A left central line has been placed. The central line appears in good position. No pneumothorax. The other support devices remain in place. There continues to bilateral interstitial pulmonary infiltrate s. CONCLUSION: No pneumothorax. Baron Medrano MD on December 07, 2016 at 16:12 Board Certified Radiologist. This report was verified electronically.
[2016-12-07 16:24] LABS: BLOOD GAS BASE EXCESS -13.5 mmol/L (-2-2); BLOOD GAS CARBOXYHEMOGLOBIN 0.9 % (0-4); BLOOD GAS HCO3 13 mmol/L (22-26); BLOOD GAS METHEMOGLOBIN 2.2 % (0-2); BLOOD GAS O2 HGB SATURATION 95 % (90-100); BLOOD GAS OXYGEN CONTENT 11.1 Vol % (12.0-20.0); BLOOD GAS PCO2 37 mmHg (38-42); BLOOD GAS PO2 186 mmHg (61-120); OXYGEN DEVICE VENTILATOR; TEMP CORR TO 98.6
[2016-12-07 16:25] LABS: DRAW SITE RT RADIAL; FIO2 70 %; NUMBER OF ARTERIAL PUNCTURES 1; STAT NO; ULNAR PULSE PRESENT
[2016-12-07] MEDS ORDERED: SODIUM BICARBONATE 8.4% INJ 50 MEQ/50 ML SYR IV PUSH ONE (16:30)
[2016-12-07] MEDS: PROPOFOL 1000 MG/100 ML INJ 100 ML IV SCH ×2 (16:40→18:59)
[2016-12-07] MEDS: fentaNYL DRIP 250 ML IV SCH (16:41)
[2016-12-07] MEDS: SODIUM CHLORIDE 0.9% FLUSH 10 ML FLUSH IVF SCH (16:42)
[2016-12-07] MEDS: SODIUM BICARBONATE 8.4% INJ 100 MEQ in WATER STERILE FOR INJ 850 ML IV SCH (17:39)
[2016-12-07] MEDS: ARTIFICIAL TEARS OPTH SOLN 15 ML BTL EACH EYE SCH (18:00)
[2016-12-07 18:48] LABS: BICARBONATE 17.5 MEQ/L (21.0-32.0); MAGNESIUM 1.8 MG/DL (1.5-2.5)
[2016-12-07 18:58] LABS: POTASSIUM 7.1 MEQ/L (3.5-5.1)
--- NOTE | 2016-12-07 19:04 | MB ---
cc: CODY HEWITT MD DATE OF CONSULTATION: 12/07/2016. REASON FOR CONSULTATION: Elevated BUN and creatinine for evaluation. HISTORY OF PRESENT ILLNESS: This is 66-year-old male with past medical history of hypertension, diabetes mellitus, history of cerebrovascular accident with left-sided weakness, hyperlipidemia, bronchial asthma, chronic kidney disease who was admitted because of shortness of breath and chest pain. I was called to see the patient because of elevated BUN and creatinine. The patient was diagnosed here with non-ST elevation [place]. The patient has history of chronic kidney disease. He was seen by me when he was admitted in March. He has a baseline creatinine that seems to be close to 2.0 to 2.2 and this was in March of 2015 and April of 2015. Now he came with a creatinine of 7.7. The patient developed respiratory failure and he was intubated. He also has metabolic acidosis with low bicarbonate and lactic acid of 2.2. The patient is getting IV fluids with sodium bicarbonate. His urine output is adequate. He is also getting antibiotics. The patient is intubated and sedated and is not able to give any history. Most of the history was taken from the patient's chart. PAST MEDICAL HISTORY: 1. Hypertension. 2. Diabetes mellitus. 3. Morbid obesity. 4. History of cerebrovascular accident. 5. Chronic kidney disease. 6. Hyperlipidemia. 7. Bronchial asthma. PAST SURGICAL HISTORY: 1. Appendectomy. 2. History of ruptured cerebral aneurysm. 3. Ventriculostomy. REVIEW OF SYSTEMS: A review of systems cannot be taken since the patient is intubated. SOCIAL HISTORY: There is no history of smoking or alcoholism. FAMILY HISTORY: The family history is not available. ALLERGIES: HE HAS NO KNOWN DRUG ALLERGIES. MEDICATIONS: Currently he is on the following medications: 1. IV fluids with sodium bicarbonate 150/hour. 2. Sara-Colace one tablet twice a day. 3. Peridex. 4. . 5. Protonix 40 milligrams IV daily. 6. DuoNeb nebulizer. 7. Methylprednisolone 60 milligrams q. 12 hours. 8. Azithromycin 500 milligrams q. 12 hours. 9. Ceftriaxone IV q. 24 hours. 10. Zofran as needed. PHYSICAL EXAMINATION: GENERAL: On examination, the patient is intubated and sedated. VITAL SIGNS: His last blood pressure is 162/88, temperature is 99.1, oxygen saturation is 97%, FIO2 is 97% to 100%. The blood pressure has been on the higher side all along during this admission. HEAD, EYES, EARS, NOSE, THROAT: The pupils are mid constricted. Nonicteric sclerae. Conjunctivae are pale. NECK: The neck is supple. JVD is not elevated. LUNGS: The patient has bilateral decreased air entry with scattered wheezing. HEART: S1 and S2 regular rhythm. ABDOMEN: Abdomen is obese, soft and lax. There is no tenderness. EXTREMITIES: There is no edema. LABORATORY INVESTIGATIONS: White blood cell count is 8.5, hemoglobin 7.7, platelet count 234,000. Sodium 135, potassium 4.9, chloride 108, bicarbonate 15.8, BUN 61, creatinine 7.7. BMP repeat is pending. Glucose 214. Lactic acid is 2.2. Calcium is 8.3. Magnesium 1.7. Creatine kinase 6.7. Troponin I is 2.18. Total protein is 7.6, albumin 2.8. Serum osmolality is 320. Repeat troponin is 2.4. PTT is 33.2. Urinalysis showing protein of 300. Previously he had normal complements and MERLY is negative. Cultures are all negative so far. IMAGING STUDIES: The patient has a chest x-ray done on admission that shows bilateral lower lobe consolidation. Ultrasound of the kidneys was done that shows both kidneys are normal in size and no evidence of hydronephrosis. ASSESSMENT: 1. Chronic kidney disease / acute kidney injury. 2. Non S-T elevation myocardial infarction. 3. Pneumonia and respiratory failure. 4. Metabolic acidosis. 5. Hypovolemia. 6. Diabetes mellitus. 7. History of hypertension. 8. Anemia. The patient has history of chronic kidney disease and his workup in the past showing serum protein electrophoresis was negative. Complements are normal and MERLY was negative. He has proteinuria. Most likely he has underlying diabetic or hypertensive renal disease. There must be an element of acute kidney injury that could be related to acute tubular necrosis or interstitial nephritis. Now he is passing more urine. A repeat Basic metabolic profile is pending. Continue the IV hydration. Avoid any nephrotoxins. Antibiotics. Thank you for the consultation, and I will follow the patient while he is in the hospital. MD APLPE Basurto/GABRIELE /6:33 PM /6:45 PM
--- NOTE | 2016-12-07 19:25 | ECHRPT ---
Indication: HEART FAILURE CONCLUSIONS Mildly dilated left ventricle. Wall thickness is normal. The left ventricular systolic function is normal with an estimated ejection fraction is 45-50%. There is distinct regional wall motion abnormalities with akinetic apex and possibly clot at the ape x. Consider repeating study with contrast/Definity to better asses apex The right ventriclar size is upper limits of normal. The left atrial size is moderately dilated. The right atrial size is moderately dilated. [id number] mitral valve regurgitation. There is mild tricuspid valve regurgitation. There is estimated mild pulmonary hypertension present (range 40-50 mmHg). The pulmonary valve is not well visualized. The inferior vena cava is dilated. There is less than 50% respiratory change in dimension of the inferior vena cava (abnormal). BP: / HR: Rhythm: Atrial fibrillation MEASUREMENTS (Male / Female) Normal Values Technical Quality:Fair 2D ECHO LVOT Diameter 1.5 cm Aortic Root Diameter 2.6 cm LA Systolic Diameter LX 3.7 cm 3.0 - 4.0 / 2.7 - 3.8 cm M-MODE LV Diastolic Diameter MM 6.4 cm 4.2 - 5.9 / 3.9 - 5.3 cm LV Systolic Diameter MM 4.7 cm LV Ejection Fraction MM Teich 50.8 % IVS Diastolic Thickness MM 1.1 cm 0.6 - 1.0 / 0.6 - 0.9 cm LVPW Diastolic Thickness MM 1.1 cm 0.6 - 1.0 / 0.6 - 0.9 cm LV Relative Wall Thickness MM 0.3 0.24 - 0.42 / 0.22 - 0.42 LV Mass Index MM 127.5 g/m 49 - 115 / 43 - 95 g/m AV Cusp Separation MM 1.7 cm DOPPLER AV Peak Velocity 113.0 cm/s AV Peak Gradient 5.1 mmHg AV Mean Gradient 3.0 mmHg AV Velocity Time Integral 19.8 cm LVOT Peak Velocity 75.9 cm/s LVOT Peak Gradient 2.3 mmHg LVOT Velocity Time Integral 12.7 cm AV Area Cont Eq vti 1.1 cm AV Area Cont Eq pk 1.2 cm Mitral E Point Velocity 129.0 cm/s LV E' Lateral Velocity 3.5 cm/s Mitral E to LV E' Lateral Ratio 36.8 LV E' Septal Velocity 11.0 cm/s Mitral E to LV E' Septal Ratio 11.7 TR Peak Velocity 297.0 cm/s TR Peak Gradient 35.3 mmHg PV Peak Velocity 55.6 cm/s PV Peak Gradient 1.2 mmHg FINDINGS LEFT VENTRICLE Mildly dilated left ventricle. Wall thickness is normal. The left ventricular systolic function is normal with an estimated ejection fraction in the range of 55-60%. There is distinct regional wall motion abnormalities with akinetic apex and possibly clot at the ape x.this study was not technically sufficient to allow for evaluation of left ventricular diastolic function. RIGHT VENTRICLE The right ventriclar size is upper limits of normal. LEFT ATRIUM The left atrial size is moderately dilated. RIGHT ATRIUM The right atrial size is moderately dilated. ATRIAL SEPTUM The interatrial septum not well visualized. AORTA The aortic root and proximal ascending aorta are normal in size on limited imaging. MITRAL VALVE Structurally normal mitral valve. Zuwk-qx-fjznwzke mitral valve regurgitation. AORTIC VALVE Trileaflet aortic valve. No aortic valve stenosis or regurgitation. TRICUSPID VALVE Structurally normal tricuspid valve. There is mild tricuspid valve regurgitation. There is estimated mild pulmonary hypertension present (range 40-50 mmHg). PULMONARY VALVE The pulmonary valve is not well visualized. VESSELS The inferior vena cava is dilated. There is less than 50% respiratory change in dimension of the inferior vena cava (abnormal). PERICARDIUM No pericardial effusion. Mayito Courtney MD (Electronically Signed) Final Date:07 December 2016 19:24
[2016-12-07] MEDS ORDERED: DEXTROSE 50% IN WATER 50 ML VIAL(D50) IV PUSH ONE (19:45)
[2016-12-07] MEDS ORDERED: INSULIN HUMAN REGULAR 1,000 UNITS/10 ML VIAL IV PUSH ONE (19:45)
[2016-12-07] MEDS ORDERED: SODIUM POLYSTYRENE SULFONATE SUSP 15 GM/60 ML CUP PO ONE (19:45)
[2016-12-07] MEDS ORDERED: CALCIUM GLUCONATE INJ 2 GM in SODIUM CHLORIDE 0.9% INJ 100 ML IV ONE (19:45)
[2016-12-07] MEDS ORDERED: SODIUM POLYSTYRENE SULFONATE SUSP 15 GM/60 ML CUP RECTAL ONE (19:45)
[2016-12-07] MEDS: CHLORHEXIDINE 0.12% (ORAL KIT) 15 ML CUP MT SCH ×2 (20:00→20:16)
[2016-12-07] MEDS: DOCUSATE SODIUM 50 MG/SENNA 8.6 MG TAB PO SCH (20:16)
[2016-12-07] MEDS: SODIUM CHLORIDE 0.9% FLUSH 10 ML FLUSH IV FLUSH SCH (20:18)
[2016-12-07 20:34] LABS: APTT (PATIENT) 30.8 SEC (24.3-30.1)
--- NOTE | 2016-12-07 21:18 | MB ---
cc: DONNIE SINGLETARY MD DATE OF CONSULTATION 12/07/16 HISTORY OF PRESENT ILLNESS Mr. Mehta is a 66-year-old male with history of CVA, diabetes mellitus, hypertension, dyslipidemia and asthma. He presented with progressive dyspnea. He was found to be in acute renal failure with creatinine of 7.7. His troponin was elevated as well. PAST MEDICAL HISTORY 1. Asthma, 2. Dyslipidemia, 3. CVA with left-sided weakness 4. Hypertension, 5. Type 2 diabetes mellitus 6. History of appendectomy 7. Surgery for ruptured cerebral aneurysm. 8. Ventriculostomy. MEDICATIONS 1. Insulin. 2. Citalopram. 3. Lovastatin. 4. Ventolin inhaler. 5. Lasix. 6. Aspirin. 7. Amlodipine 8. Losartan 9. Advair. ALLERGIES None. SOCIAL HISTORY The patient does not smoke. Does not drink alcohol. FAMILY HISTORY Unknown. REVIEW OF SYSTEMS Otherwise negative. PHYSICAL EXAMINATION VITAL SIGNS: Blood pressure 162/88, pulse 140 and regular. HEENT: Negative. 2+ carotid upstrokes. No bruits. LUNGS: Bilateral rhonchi. HEART: Regular, tachycardic, no gallop or rub. ABDOMEN: Soft, obese. EXTREMITIES: Without edema. 2+ distal pulses NEUROLOGIC: Grossly nonfocal. The patient is in significant respiratory distress. CARDIOLOGY STUDIES EKG was reviewed and showed sinus tachycardia and right bundle-branch block with secondary ST-T changes. Echocardiogram showed mildly left ventricular with an ejection fraction of 45-50% with apical akinesis and possible typical thrombus, four-chamber enlargement, xnic-qh-zcxwgwyi mitral regurgitation, mild pulmonary hypertension. LABORATORY DATA Hemoglobin 7.7, potassium 4.9, creatinine 7.8, troponin 2.49. BNP 503. DIAGNOSES 1. Acute renal failure 2. Elevated troponin. 3. Respiratory failure. 4. Pneumonia 5. Diabetes mellitus 6. Hypertension 7. Anemia. 8. Morbid obesity. DISPOSITION Mr. Mehta has developed progressive respiratory failure. He will be intubated and placed on the ventilator. His echocardiogram is consistent with mild LV dysfunction and possible left ventricular thrombus. I recommend to continue medical management including full anticoagulation with heparin. It is unclear if he has had recent acute coronary event since his troponin is only mildly elevated and he has developed renal failure. I recommend to obtain serial enzymes and EKGs. I recommend to continue aggressive modification of his cardiac risk factors. He will be treated for pneumonia with antibiotics. I will follow him for cardiology during his hospitalization. He is undergoing nephrology evaluation as well. MD MARCUS Quezada/ /8:06 PM /9:05 PM ADILENE
[2016-12-07 23:00] LABS: BLOOD GAS HCO3 13 mmol/L (22-26); BLOOD GAS METHEMOGLOBIN 2.2 % (0-2); BLOOD GAS O2 HGB SATURATION 96 % (90-100); BLOOD GAS OXYGEN CONTENT 10.7 Vol % (12.0-20.0); BLOOD GAS PCO2 26 mmHg (38-42); BLOOD GAS PO2 304 mmHg (61-120); BLOOD GAS TOTAL HGB 7.4 G/DL (12.0-16.0); CRITICAL VALUE YES; DRAW SITE RT RADIAL; FIO2 70 %; NUMBER OF ARTERIAL PUNCTURES 1; OXYGEN DEVICE VENTILATOR; STAT NO; TEMP CORR TO 98.6; ULNAR PULSE PRESENT; VENT SETTINGS PRVC/AC
[2016-12-08] VITALS (15 sets, daily range): BP systolic 132–150; BP diastolic 70–80; PULSE 78–103; RESP 14–20; TEMP 93.9–98.4; O2SAT 94–100
[2016-12-08] MEDS: SODIUM BICARBONATE 8.4% INJ 100 MEQ in WATER STERILE FOR INJ 850 ML IV SCH ×4 (00:16→20:02)
[2016-12-08] MEDS: PROPOFOL 1000 MG/100 ML INJ 100 ML IV SCH ×4 (01:48→17:52)
[2016-12-08] MEDS: CHLORHEXIDINE GLUCONATE 2 % 1 PACK (2 CLOTHS) TOP SCH ×2 (01:51)
[2016-12-08] MEDS: RESP: ALBUTEROL 2.5 MG/IPRATROPIUM 0.5 MG NEB (SCH) INH ×4 (03:40→21:03)
[2016-12-08 04:06] LABS: BICARBONATE 16.9 MEQ/L (21.0-32.0); MAGNESIUM 1.8 MG/DL (1.5-2.5); POTASSIUM 4.3 MEQ/L (3.5-5.1)
[2016-12-08] MEDS: fentaNYL DRIP 250 ML IV SCH (04:12)
[2016-12-08 04:14] LABS: INDIRECT BILIRUBIN 0.2 MG/DL (0.0-0.8); TOTAL BILIRUBIN ADULT 0.3 MG/DL (0.2-1.0)
[2016-12-08 04:32] LABS: MEAN CELL VOLUME 86.5 FL (80.0-100.0); MEAN CORPUSCULAR HGB CONC 34.7 % (32.0-36.0); PLATELET COUNT 222 TH/MM3 (150-450); RED CELL DISTRIBUTION WIDTH 14.7 % (11.6-17.2); WHITE BLOOD COUNT 5.7 TH/MM3 (4.0-11.0)
[2016-12-08 04:32] LABS: APTT (PATIENT) 40.1 SEC (24.3-30.1); PROTHROMBIN TIME - PATIENT 11.2 SEC (9.8-11.6)
[2016-12-08 04:36] LABS: REVIEW FLAG FINAL
--- NOTE | 2016-12-08 05:30 | RADRPT ---
EXAM DATE/TIME: 12/08/2016 04:39 [facility] COMPARISON: CHEST SINGLE AP, December 07, 2016, 15:30. INDICATIONS : Respiratory failure, evaluate for pnuemonia MEDICAL HISTORY : Hypertension. cerebrovascular accident, SURGICAL HISTORY : Cerebral aneurysm ENCOUNTER: Subsequent ACUITY: 4 - 6 days PAIN SCORE: Non-responsive. LOCATION: Bilateral chest FINDINGS: Right upper lobe infiltrative improved in the interim. There is mildly increased and fairly diffuse i nfiltrate on the left and increasing left pleural effusion, now estimated at moderate. No pneumothorax. Mild cardiomegaly is stable. Endotracheal tube tip is approximately 2 cm above the ferdinand. There is a nasogastric tube coursing in to the stomach and a left internal jugular central venous catheter with tip in the superior vena cava . CONCLUSION: 1. Modest worsening of consolidation and pleural effusion on the left. 2. Improved right upper lobe infiltrate. Robson Biggs MD on December 08, 2016 at 5:27 Board Certified Radiologist. This report was verified electronically.
[2016-12-08 05:35] LABS: BLOOD GAS BASE EXCESS -8.8 mmol/L (-2-2); BLOOD GAS CARBOXYHEMOGLOBIN 1.2 % (0-4); BLOOD GAS HCO3 15 mmol/L (22-26); BLOOD GAS METHEMOGLOBIN 2.1 % (0-2); BLOOD GAS O2 HGB SATURATION 93 % (90-100); BLOOD GAS PCO2 23 mmHg (38-42); BLOOD GAS PO2 81 mmHg (61-120); BLOOD GAS TOTAL HGB 9.8 G/DL (12.0-16.0); CRITICAL VALUE YES; OXYGEN DEVICE VENTILATOR; TEMP CORR TO 94.3
[2016-12-08 05:36] LABS: DRAW SITE RT RADIAL; FIO2 40 %; NUMBER OF ARTERIAL PUNCTURES 1; STAT NO; ULNAR PULSE PRESENT; VENT SETTINGS PRVC/AC
[2016-12-08] MEDS: INSULIN NovoLIN REGULAR SUPPLEMENTAL SCALE SQ SCH ×4 (06:00→17:54)
[2016-12-08] MEDS: CHLORHEXIDINE 0.12% (ORAL KIT) 15 ML CUP MT SCH ×4 (08:00→20:02)
[2016-12-08] MEDS: PANTOPRAZOLE SODIUM 40 MG VIAL IV SCH (08:57)
[2016-12-08] MEDS: AZITHROMYCIN INJ 500 MG in SODIUM CHLOR 0.9% 250 ML INJ 250 ML IV SCH (08:57)
[2016-12-08] MEDS: DOCUSATE SODIUM 50 MG/SENNA 8.6 MG TAB PO SCH ×2 (08:57→20:01)
[2016-12-08] MEDS: cefTRIAXone INJ 1,000 MG in SODIUM CHLORIDE 0.9% INJ 100 ML IV SCH (08:57)
[2016-12-08] MEDS: SODIUM CHLORIDE 0.9% FLUSH 10 ML FLUSH IVF SCH (08:58)
[2016-12-08] MEDS: ARTIFICIAL TEARS OPTH SOLN 15 ML BTL EACH EYE SCH ×3 (08:58→17:55)
[2016-12-08] MEDS: SODIUM CHLORIDE 0.9% FLUSH 10 ML FLUSH IV FLUSH SCH ×2 (08:58→20:01)
[2016-12-08] MEDS: methylPREDNISolone SOD SUCC 125 MG/2 ML VIAL IV PUSH SCH ×2 (08:58→20:01)
--- NOTE | 2016-12-08 12:03 | HHI.CCPN ---
Subjective Remarks/Hospital Course This patient is lithuanian speaking only, and his family was not available to assist in interpretation. In addition, he is in respiratory distress on my evaluation, and additional history is unobtainable from the patient. Per report , this is a 66yM with a history of CHF and prior NSTEMI who presented for shortness of breath. He was hypoxic in ER and placed on BiPAP. He was febrile in the ER. His laboratory data is significant for a leukocytosis, lactic acidosis, Cr 7.7, troponin of 2. SUBJ 12/08: Patient was intubated after known yesterday for worsening respiratory failure. Currently remains intubated sedated. His chest x-ray shows worsening left-sided effusion/infiltrate. I have requested STAT CT chest to better evaluate infiltrate. Hemoglobin dropped from 7.7-6.6. Received 2 units PRBC Objective Vital Signs Date Time Temp Pulse Resp B/P Pulse Ox O2 Delivery O2 Flow Rate FiO2 12/08/16: 100 35 12/08/16 04:00 93.9 78 20 150/80 12/07/16 05:35 4.00 12/07/16 04:36 BiPAP Intake and Output 12/07/16 12/07/16 12/08/16 08:00 16:00 00:00 Intake Total 1680 ml 1318 ml Output Total 675 ml 1275 ml Balance 1005 ml 43 ml Result Diagram: 12/08/16 0420 12/08/16 0330 Other Results Microbiology Date/Time Procedure Status Source Growth 12/07/16 17:30 Legionella Antigen - Final Complete Urine Catheterized Urine PRESUMPTIVE NEGATIVE FOR LEGIONELLA P... 12/07/16 17:30 Streptococcus pneumoniae Antigen (M - Final Complete Urine Catheterized Urine PRESUMPTIVE NEGATIVE FOR STREPTOCOCCU... Laboratory Tests Test 12/07/16 12/07/16 12/08/16 15:00 20:20 05:20 Blood Gas Puncture Site RT RADIAL RT RADIAL RT RADIAL Blood Gas Patient Temperature 98.6 98.6 94.3 Blood Gas HCO3 13 mmol/L 13 mmol/L 15 mmol/L (22-26) (22-26) (22-26) Blood Gas Base Excess -13.5 mmol/L -12.0 mmol/L -8.8 mmol/L (-2-2) (-2-2) (-2-2) Blood Gas Oxygen Saturation 95 % (90-100) 96 % (90-100) 93 % (90-100) Arterial Blood pH 7.18 7.32 7.42 (7.380-7.420) (7.380-7.420) (7.380-7.420) Arterial Blood Partial 37 mmHg (38-42) 26 mmHg (38-42) 23 mmHg (38-42) Pressure CO2 Arterial Blood Partial 186 mmHg 304 mmHg 81 mmHg Pressure O2 (61-120) (61-120) (61-120) Arterial Blood Oxygen Content 11.1 Vol % 10.7 Vol % 13.0 Vol % (12.0-20.0) (12.0-20.0) (12.0-20.0) Arterial Blood 0.9 % (0-4) 1.0 % (0-4) 1.2 % (0-4) Carboxyhemoglobin Arterial Blood Methemoglobin 2.2 % (0-2) 2.2 % (0-2) 2.1 % (0-2) Blood Gas Hemoglobin 8.0 G/DL 7.4 G/DL 9.8 G/DL (12.0-16.0) (12.0-16.0) (12.0-16.0) Oxygen Delivery Device VENTILATOR VENTILATOR VENTILATOR Blood Gas Ventilator Setting PRVC/AC PRVC/AC Blood Gas Inspired Oxygen 70 % 70 % 40 % Imaging Last Impressions Chest X-Ray 12/06/16 1955 Signed Impressions: Service Date/Time: Tuesday, December 06, 2016 23:29 - CONCLUSION: Bilateral lower lobe consolidation. Sarabjit Tinsley MD Objective Remarks GENERAL: Obese middle-aged male, intubated sedated HEENT: Normocephalic. Atraumatic. Pupils equal, round, reactive, conjugate. Mucous membranes are moist NECK: Trachea is midline. There is no JVD. CHEST: Entry bilaterally no wheezes or crackles diminished at the bases CARDIOVASCULAR: Normal rate, regular rhythm ABDOMEN: Soft, nontender, nondistended. No guarding. MUSCULOSKELETAL: Pulses 2+. No peripheral edema. NEUROLOGICAL: Intubated heavily sedated for ventilator synchrony. Withdraws x 4 Urinary Catheter: Yes Assessment to: Continue [place] insert reason: Measure Accurate Output Vascular Central Line Catheter: Yes Assessment to: Continue A/P Assessment and Plan Assessment: 66yM with acute bibasilar community acquired pneumonia, severe sepsis, lactic acidosis, acute kidney injury, acute hypoxic respiratory failure , multi-organ system failure, NSTEMI. very critically ill. Plan by systems: Neurologic: Tylenol as needed for pain or fever --Propofol and fentanyl for sedation and ventilator synchrony Respiratory: Acute hypoxic respiratory failure COPD exacerbation Bilateral lower lobe pneumonias/community acquired PRVC/AC Steroids Wean FiO2 for SPO2 greater than 90% Antibiotics described below Nebs --CT chest to evaluate L effusion and need for thoracentesis Cardiovascular: Severe sepsis NSTEMI LA thrombus Critical care bedside echocardiography 12/07: Mildly depressed LVEF no grossly obvious RWMA, normal RV function, decompressed RV, no pericardial effusion -- heparin drip-hold due to anemia requiring transfusion, resume if Hb stable -- Start ASA 81 mg cr -- trend troponins -- consulted cardiology -Dr Chapin -- Echo Mildly dilated left ventricle. LVEF 45-50%. There is distinct regional wall motion abnormalities with akinetic apex and possibly clot at the apex. -- Per Dr Martinez Consider repeating study with contrast/Definity to better asses apex -- Biatrial moderate dilatation Renal: New severe acute kidney injury Nephrology following UO 1.8 L in 24 hours. No indication for HD at this time urine lytes -- urine eos -- renal ultrasound-normal -- me[place] with q1h uop -- Strict I/Os FEN/GI: Severe sepsis Intravascular hypovolemia NS at 100 cc an hour Daily BMP Nothing by mouth --Start tube feeds in 24 hours Heme/ID: Community acquired bilateral lower lobe pneumonia Severe sepsis Rocephin and azithromycin Mills culture follow up Daily CBC -- Receiving 2 units PRBC transfusion for hemoglobin drop to 6.6 from 7.7. Heparin placed on hold repeat CBC Endocrine: Type 2 diabetes -- SSI Prophylaxis: GI Prophylaxis Protonix DVT Prophylaxis -- SCDs Heparin drip-now on hold due to anemia Lines: Central line placed by Dr. Robertson 12/07/16 Dispo: This patient remains critically ill with one or more organ systems which are or may become a threat to life. I have spent in excess of 38 minutes discontinuously in the care and management of this patient. This time is exclusive of procedures, and includes, but is not limited to, evaluation of the patient, review of the medical record, discussions with family, consultants, nursing staff, or respiratory therapy, and documentation in the medical record. Wyatt Chance MD Dec 08, 2016 12:03
[2016-12-08] MEDS: ASPIRIN 81 MG CHEW TAB CHEW SCH (12:14)
--- NOTE | 2016-12-08 14:48 | RADRPT ---
EXAM DATE/TIME: 12/08/2016 14:02 [facility] COMPARISON: CT THORAX W/O CONTRAST, January 28, 2015, 22:08. INDICATIONS : Evaluate pleural effusion. RADIATION DOSE: 9.53 CTDIvol (mGy) MEDICAL HISTORY : Cardiovascular disease. Cerebrovascular disease. Hypertension. Diabetes type 2 SURGICAL HISTORY : Appendectomy. Cerebral aneurysm repair. ENCOUNTER: Initial ACUITY: 4 - 6 days PAIN SCALE: 6/10 LOCATION: Left chest TECHNIQUE: Volumetric scanning of the chest was performed. Using automated exposure control and adjustment of t he mA and/or kV according to patient size, radiation dose was kept as low as reasonably achievable to obtain optimal diagnostic quality images. DICOM format image data is available electronically for r eview and comparison. Follow-up recommendations for detected pulmonary nodules are based at a minimum on nodule size and pa tient risk factors according to Fleischner Society Guidelines. FINDINGS: LUNGS: Consolidating airspace disease is identified in both lower lobes. The left lower lobe is almost compl etely consolidated. Mild airspace disease is also present in the left upper lobe. PLEURAE: Small to moderate bilateral pleural effusions are noted. Left-sided effusion is larger. MEDIASTINUM: Heart is mildly enlarged. There is no evidence of pericardial effusion, lymphadenopathy or suspicious mass. AXILLAE: Within normal limits. No lymphadenopathy. MUSCULOSKELETAL: No acute abnormality. MISCELLANEOUS: The visualized upper abdominal organs demonstrate no acute abnormality. CONCLUSION: 1. Bilateral lower lobe consolidating airspace disease. 2. Small to moderate bilateral pleural effusions; larger on the left. 3. Cardiomegaly. 4. Endotracheal and nasogastric tubes in good position. Tutu Christianson MD on December 08, 2016 at 14:43 Board Certified Radiologist. This report was verified electronically.
--- NOTE | 2016-12-08 15:48 | PD.CARD.PN ---
Subjective Subjective Remarks Intubated, awake, comfortable Objective Medications Current Medications Medications (Trade) Dose Ordered Sig/Abby Route Start Time Stop Time Status Last Admin (D50w (Vial) Inj) 25 ml UNSCH PRN IV PUSH 12/07/16 00:45 (NovoLIN R SUPPLEMENTAL SCALE) 1 Q6HR SQ 12/07/16 06:00 12/08/16 12:00 (Zofran Inj) 4 mg Q6H PRN IV 12/07/16 00:45 Miscellaneous Information 1 Q361D XX 12/07/16 00:45 (Chlorhexidine 2% Cloth) 3 pack Taper DAILY@04 TOP 12/07/16 04:00 12/03/17 03:59 12/08/16 01:51 (Chlorhexidine 2% Cloth) 3 pack UNSCH PRN TOP 12/07/16 00:45 Methylprednisolone Sodium Succinate 60 mg 60 mg Q12HR IV PUSH 12/07/16 09:00 12/08/16 08:58 Azithromycin 500 mg/Sodium Chloride 250 ml @ 250 mls/hr Q24H IV 12/08/16 09:00 12/15/16 08:59 12/08/16 08:57 Ceftriaxone Sodium 1000 mg/ Sodium Chloride 100 ml @ 200 mls/hr Q24H IV 12/08/16 09:00 12/15/16 08:59 12/08/16 08:57 (Heparin-D5W Inj) 250 ml @ 0 mls/hr TITRATE IV 12/07/16 01:45 Hold 12/07/16 02:05 (Peridex 0.12% Liq) 15 ml BID@08,20 MT 12/07/16 20:00 12/08/16 08:55 (NS Flush) DAILY IVF 12/07/16 15:30 12/08/16 08:58 (NS Flush) UNSCH PRN IVF 12/07/16 15:30 Chlorhexidine Gluconate 15 ml 15 ml BID@08,20 MT 12/07/16 20:00 Propofol 100 ml @ 0 mls/hr TITRATE IV 12/07/16 15:30 12/08/16 08:59 (fentaNYL DRIP) 250 ml @ 0 mls/hr TITRATE IV 12/07/16 15:30 12/08/16 04:12 (NS Flush) 2 ml UNSCH PRN IV FLUSH 12/07/16 15:30 (NS Flush) 2 ml BID IV FLUSH 12/07/16 21:00 12/08/16 08:58 (Tylenol) 650 mg Q6H PRN PO 12/07/16 15:30 (Protonix Inj) 40 mg DAILY IV 12/08/16 09:00 12/08/16 08:57 (Tears Naturale Opth Soln) 1 drop TID EACH EYE 12/07/16 18:00 12/08/16 12:17 Miscellaneous Information 1 Q361D XX 12/07/16 15:30 (Chlorhexidine 2% Cloth) 3 pack Taper DAILY@04 TOP 12/08/16 04:00 12/04/17 03:59 (Chlorhexidine 2% Cloth) 3 pack UNSCH PRN TOP 12/07/16 15:30 (Sara-Colace) 1 tab BID PO 12/07/16 21:00 12/08/16 08:57 (Milk Of Magnesia Liq) 30 ml Q12H PRN PO 12/07/16 15:30 (Senokot) 17.2 mg Q12H PRN PO 12/07/16 15:30 (Dulcolax Supp) 10 mg DAILY PRN RECTAL 12/07/16 15:30 Lactulose 30 ml 30 ml DAILY PRN PO 12/07/16 15:30 (Sodium Bicarbonate 8.4% Inj/Sterile Water For Inj) 950 ml @ 150 mls/hr Q6H20M IV 12/07/16 18:00 12/08/16 12:17 (Aspirin Chew) 81 mg DAILY CHEW 12/08/16 12:00 12/08/16 12:14 Vital Signs / I&O Vital Signs Date Time Temp Pulse Resp B/P Pulse Ox O2 Delivery O2 Flow Rate FiO2 12/08/16 15:00 94 35 12/08/16 14:00 100 100 12/08/16 11:17 100 35 12/08/16 08:20 97 40 12/08/16 04:10 99 40 12/08/16 04:00 93.9 78 20 150/80 100 12/08/16 04:00 40 12/08/16 04:00 80 12/08/16 02:00 81 12/08/16 01:30 99 40 12/08/16 00:00 95.0 84 20 132/72 100 12/08/16 00:00 84 12/08/16 00:00 40 12/07/16 22:22 98 40 12/07/16 22:00 90 12/07/16 20:23 100 70 12/07/16 20:00 91 12/07/16 20:00 97.0 91 20 115/60 100 12/07/16 20:00 40 12/07/16 18:00 70 12/07/16 18:00 97 12/07/16 17:00 70 12/07/16 16:00 107 12/07/16 16:00 70 12/07/16 16:00 97.8 107 15 133/70 100 12/07/16 15:54 100 70 I/O 12/07/16 12/07/16 12/07/16 12/08/16 12/08/16 12/08/16 07:00 15:00 23:00 07:00 15:00 23:00 Intake Total 1680 ml 1318 ml 2365 ml Output Total 675 ml 1275 ml 550 ml Balance 1005 ml 43 ml 1815 ml Intake IV Total 1680 ml 1318 ml 2365 ml Output Urine Total 675 ml 1275 ml 550 ml # Bowel Movements 0 1 Physical Exam GENERAL: Intubated, awake SKIN: Warm and dry. HEAD: Normocephalic. EYES: No scleral icterus. No injection or drainage. NECK: Supple, trachea midline. No JVD or lymphadenopathy. CARDIOVASCULAR: Regular rate and rhythm, mild tachycardia, no murmurs, gallops, or rubs. RESPIRATORY: Breath sounds equal bilaterally. No accessory muscle use. GASTROINTESTINAL: Abdomen soft, non-tender, nondistended. MUSCULOSKELETAL: No cyanosis, mild edema, dry, scaly skin Laboratory Laboratory Tests Test 12/07/16 12/07/16 12/07/16 12/07/16 17:30 18:00 18:53 20:20 Urine Random Creatinine 209.8 MG/DL Urine Random Sodium 16 MEQ/L Sodium Level 140 MEQ/L Potassium Level 7.1 MEQ/L Chloride Level 110 MEQ/L Carbon Dioxide Level 17.5 MEQ/L Anion Gap 13 MEQ/L Blood Urea Nitrogen 67 MG/DL Creatinine 8.23 MG/DL Estimat Glomerular Filtration 7 ML/MIN Rate Random Glucose 248 MG/DL Lactic Acid Level 1.4 mmol/L Calcium Level 8.0 MG/DL Phosphorus Level 4.9 MG/DL Magnesium Level 1.8 MG/DL Troponin I 1.75 NG/ML Activated Partial 30.8 SEC Thromboplast Time Blood Gas Puncture Site RT RADIAL Blood Gas Patient Temperature 98.6 Blood Gas HCO3 13 mmol/L Blood Gas Base Excess -12.0 mmol/L Blood Gas Oxygen Saturation 96 % Arterial Blood pH 7.32 Arterial Blood Partial 26 mmHg Pressure CO2 Arterial Blood Partial 304 mmHg Pressure O2 Arterial Blood Oxygen Content 10.7 Vol % Arterial Blood 1.0 % Carboxyhemoglobin Arterial Blood Methemoglobin 2.2 % Blood Gas Hemoglobin 7.4 G/DL Oxygen Delivery Device VENTILATOR Blood Gas Ventilator Setting PRVC/AC Blood Gas Inspired Oxygen 70 % Test 12/07/16 12/08/16 12/08/16 12/08/16 23:30 03:30 04:20 04:50 Potassium Level 5.0 MEQ/L 4.3 MEQ/L Troponin I 2.52 NG/ML 2.86 NG/ML Prothrombin Time 11.2 SEC Prothromb Time International 1.0 RATIO Ratio Activated Partial 40.1 SEC Thromboplast Time Fibrinogen 747 mg/dL Sodium Level 140 MEQ/L Chloride Level 106 MEQ/L Carbon Dioxide Level 16.9 MEQ/L Anion Gap 17 MEQ/L Blood Urea Nitrogen 69 MG/DL Creatinine 8.09 MG/DL Estimat Glomerular Filtration 7 ML/MIN Rate Random Glucose 253 MG/DL Lactic Acid Level 1.5 mmol/L Calcium Level 8.5 MG/DL Phosphorus Level 5.6 MG/DL Magnesium Level 1.8 MG/DL Total Bilirubin 0.3 MG/DL Direct Bilirubin 0.1 MG/DL Indirect Bilirubin 0.2 MG/DL Aspartate Amino Transf 14 U/L (AST/SGOT) Alanine Aminotransferase 18 U/L (ALT/SGPT) Alkaline Phosphatase 88 U/L Ammonia LESS THAN 10 MCMOL/L Total Protein 6.6 GM/DL Albumin 2.3 GM/DL Lipase 114 U/L Thyroid Stimulating Hormone 1.080 uIU/ML 3rd Gen White Blood Count 5.7 TH/MM3 Red Blood Count 2.20 MIL/MM3 Hemoglobin 6.6 GM/DL Hematocrit 19.0 % Mean Corpuscular Volume 86.5 FL Mean Corpuscular Hemoglobin 30.0 PG Mean Corpuscular Hemoglobin 34.7 % Concent Red Cell Distribution Width 14.7 % Platelet Count 222 TH/MM3 Mean Platelet Volume 8.2 FL B-Type Natriuretic Peptide 320 PG/ML Blood Type O POSITIVE Crossmatch Leukocyte-Reduced Red Blood Cells Blood Bank Comment Test 12/08/16 12/08/16 12/08/16 05:20 07:08 09:47 Blood Gas Puncture Site RT RADIAL Blood Gas Patient Temperature 94.3 Blood Gas HCO3 15 mmol/L Blood Gas Base Excess -8.8 mmol/L Blood Gas Oxygen Saturation 93 % Arterial Blood pH 7.42 Arterial Blood Partial 23 mmHg Pressure CO2 Arterial Blood Partial 81 mmHg Pressure O2 Arterial Blood Oxygen Content 13.0 Vol % Arterial Blood 1.2 % Carboxyhemoglobin Arterial Blood Methemoglobin 2.1 % Blood Gas Hemoglobin 9.8 G/DL Oxygen Delivery Device VENTILATOR Blood Gas Ventilator Setting PRVC/AC Blood Gas Inspired Oxygen 40 % Blood Type O POSITIVE Crossmatch Leukocyte-Reduced Red Blood Cells Blood Bank Comment Activated Partial 37.0 SEC Thromboplast Time Imaging Current Medications Medications (Trade) Dose Ordered Sig/Abby Route Start Time Stop Time Status Last Admin (D50w (Vial) Inj) 25 ml UNSCH PRN IV PUSH 12/07/16 00:45 (NovoLIN R SUPPLEMENTAL SCALE) 1 Q6HR SQ 12/07/16 06:00 12/08/16 12:00 (Zofran Inj) 4 mg Q6H PRN IV 12/07/16 00:45 Miscellaneous Information 1 Q361D XX 12/07/16 00:45 (Chlorhexidine 2% Cloth) 3 pack Taper DAILY@04 TOP 12/07/16 04:00 12/03/17 03:59 12/08/16 01:51 (Chlorhexidine 2% Cloth) 3 pack UNSCH PRN TOP 12/07/16 00:45 Methylprednisolone Sodium Succinate 60 mg 60 mg Q12HR IV PUSH 12/07/16 09:00 12/08/16 08:58 Azithromycin 500 mg/Sodium Chloride 250 ml @ 250 mls/hr Q24H IV 12/08/16 09:00 12/15/16 08:59 12/08/16 08:57 Ceftriaxone Sodium 1000 mg/ Sodium Chloride 100 ml @ 200 mls/hr Q24H IV 12/08/16 09:00 12/15/16 08:59 12/08/16 08:57 (Heparin-D5W Inj) 250 ml @ 0 mls/hr TITRATE IV 12/07/16 01:45 Hold 12/07/16 02:05 (Peridex 0.12% Liq) 15 ml BID@08,20 MT 12/07/16 20:00 12/08/16 08:55 (NS Flush) DAILY IVF 12/07/16 15:30 12/08/16 08:58 (NS Flush) UNSCH PRN IVF 12/07/16 15:30 Chlorhexidine Gluconate 15 ml 15 ml BID@08,20 MT 12/07/16 20:00 Propofol 100 ml @ 0 mls/hr TITRATE IV 12/07/16 15:30 12/08/16 08:59 (fentaNYL DRIP) 250 ml @ 0 mls/hr TITRATE IV 12/07/16 15:30 12/08/16 04:12 (NS Flush) 2 ml UNSCH PRN IV FLUSH 12/07/16 15:30 (NS Flush) 2 ml BID IV FLUSH 12/07/16 21:00 12/08/16 08:58 (Tylenol) 650 mg Q6H PRN PO 12/07/16 15:30 (Protonix Inj) 40 mg DAILY IV 12/08/16 09:00 12/08/16 08:57 (Tears Naturale Opth Soln) 1 drop TID EACH EYE 12/07/16 18:00 12/08/16 12:17 Miscellaneous Information 1 Q361D XX 12/07/16 15:30 (Chlorhexidine 2% Cloth) 3 pack Taper DAILY@04 TOP 12/08/16 04:00 12/04/17 03:59 (Chlorhexidine 2% Cloth) 3 pack UNSCH PRN TOP 12/07/16 15:30 (Sara-Colace) 1 tab BID PO 12/07/16 21:00 12/08/16 08:57 (Milk Of Magnesia Liq) 30 ml Q12H PRN PO 12/07/16 15:30 (Senokot) 17.2 mg Q12H PRN PO 12/07/16 15:30 (Dulcolax Supp) 10 mg DAILY PRN RECTAL 12/07/16 15:30 Lactulose 30 ml 30 ml DAILY PRN PO 12/07/16 15:30 (Sodium Bicarbonate 8.4% Inj/Sterile Water For Inj) 950 ml @ 150 mls/hr Q6H20M IV 12/07/16 18:00 12/08/16 12:17 (Aspirin Chew) 81 mg DAILY CHEW 12/08/16 12:00 12/08/16 12:14 Assessment and Plan Problem List: (1) Respiratory failure (2) Sepsis (3) Pneumonia (4) ARF (acute renal failure) (5) Elevated troponin (6) Diabetes mellitus (7) Hypertension (8) Morbid obesity (9) Anemia Assessment and Plan Continue ICU care. Severe anemia with heparin started for possible LV thrombus. Continue ASA. Obtain echo w contrast after extubated and stable. Continue tx for pneumonia. Wean vent and extubate as tolerated. Needs evaluation for anemia , since if the LV thrombus is confirmed, he will need full anticoagulation. Continue aggressive risk factor modification. Problem Qualifiers (1) Sepsis: Qualified Code: A41.9 - Sepsis, due to unspecified organism (2) Pneumonia: Qualified Code: J18.9 - Pneumonia of both lower lobes due to infectious organism (3) ARF (acute renal failure): Qualified Code: N17.9 - Acute renal failure, unspecified acute renal failure type (4) Anemia: Qualified Code: D64.89 - Anemia due to other cause, not classified Mark Chapin MD Dec 08, 2016 15:47
--- NOTE | 2016-12-08 16:33 | HHI.NPPN ---
Subjective History of Present Illness 66-year-old male with past medical history of hypertension, diabetes mellitus, history of cerebrovascular accident with left-sided weakness, hyperlipidemia, bronchial asthma, chronic kidney disease who was admitted because of shortness of breath and chest pain. I was called to see the patient because of elevated BUN and creatinine. The patient was diagnosed here with non-ST elevation OR. The patient has history of chronic kidney disease. Additional Remarks Patient remain on the vent. and awake, not in distress. Objective Data Data 12/07/16 12/08/16 19:00 07:00 Intake Total 1318 ml 2365 ml Output Total 1275 ml 550 ml Balance 43 ml 1815 ml Intake IV Total 1318 ml 2365 ml Output Urine Total 1275 ml 550 ml # Bowel Movements 0 1 Vital Signs Date Time Temp Pulse Resp B/P Pulse Ox O2 Delivery O2 Flow Rate FiO2 12/08/16 16:08 40 12/08/16 15:00 94 35 12/08/16 14:00 100 100 12/08/16 12:00 40 12/08/16 11:17 100 35 12/08/16 08:20 97 40 12/08/16 08:00 40 12/08/16 04:10 99 40 12/08/16 04:00 93.9 78 20 150/80 100 12/08/16 04:00 40 12/08/16 04:00 80 12/08/16 02:00 81 12/08/16 01:30 99 40 12/08/16 00:00 95.0 84 20 132/72 100 12/08/16 00:00 84 12/08/16 00:00 40 12/07/16 22:22 98 40 12/07/16 22:00 90 12/07/16 20:23 100 70 12/07/16 20:00 91 12/07/16 20:00 97.0 91 20 115/60 100 12/07/16 20:00 40 12/07/16 18:00 70 12/07/16 18:00 97 12/07/16 17:00 70 -: 12/08/16 0420 12/08/16 0330 Microbiology 12/07/16 Legionella Antigen - Final, Complete PRESUMPTIVE NEGATIVE FOR LEGIONELLA P... 12/07/16 Streptococcus pneumoniae Antigen (M - Final, Complete PRESUMPTIVE NEGATIVE FOR STREPTOCOCCU... 12/07/16 Gram Stain - Final, Resulted 12/07/16 Sputum Culture - Preliminary, Resulted NO GROWTH IN 24 HOURS. Physical Exam General Appearance: No Acute Distress, Comfortable Eyes Eye Exam: Pupils Equal Throat Throat Exam: Oral Mucosa [place] & Moist Neck Neck Exam: Neck Supple Pulmonary Resp Exam: No Distress, Rhonchi, Decreased Bases, Diminished Breath Sounds Cardiology CV Exam: Regular, Normal Sinus Rhythm Gastrointestinal/Abdomen GI Exam: Soft, Non-Tender, Bowel Sounds Present Extremeties Extremities Exam: Moderate Edema Neurologic Neuro Exam: Alert, Awake Psychiatric Psych Exam: Appropriate Responses Assessment/Plan Assessment Summary: WILLIE/Acute Renal Failure, CHF, CKD Stage IV Problem List: (1) NSTEMI (non-ST elevated myocardial infarction) (2) Diabetes mellitus (3) Asthma (4) Shortness of breath (5) Leg edema (6) Hypertension (7) CKD (chronic kidney disease) stage 4, GFR 15-29 ml/min (8) ARF (acute renal failure) Plan Patient has been non oliguric, Creatinine is still close to 8.0. K is normal, Hco3 is low. Continue IVF with NaHco3. Cardiology follow up noted, on IV Heparin. Follow urine out put and BMP. May will need HD if continue to get worse. Problem Qualifiers (1) Diabetes mellitus: (2) ARF (acute renal failure): Qualified Code: N17.9 - Acute renal failure, unspecified acute renal failure type Zoey Carbone MD Dec 08, 2016 16:33
[2016-12-08 17:57] LABS: MEAN CELL VOLUME 86.3 FL (80.0-100.0); MEAN CORPUSCULAR HEMOGLOBIN 29.6 PG (27.0-34.0); MEAN CORPUSCULAR HGB CONC 34.3 % (32.0-36.0); PLATELET COUNT 283 TH/MM3 (150-450); RED BLOOD COUNT 3.24 MIL/MM3 (4.50-5.90); RED CELL DISTRIBUTION WIDTH 14.8 % (11.6-17.2); REVIEW FLAG FINAL; WHITE BLOOD COUNT 12.4 TH/MM3 (4.0-11.0)
[2016-12-08 18:04] LABS: APTT (PATIENT) 37.1 SEC (24.3-30.1)
[2016-12-08] MEDS: DEXMEDETOMIDINE INJ 400 MCG in SODIUM CHLORIDE 0.9% INJ 96 ML IV SCH (20:10)
[2016-12-09] VITALS (37 sets, daily range): BP systolic 126–184; BP diastolic 76–116; PULSE 77–115; RESP 11–26; TEMP 97.2–98.9; O2SAT 89–100
[2016-12-09] MEDS: DEXMEDETOMIDINE INJ 400 MCG in SODIUM CHLORIDE 0.9% INJ 96 ML IV SCH ×2 (02:04→06:18)
[2016-12-09] MEDS: SODIUM BICARBONATE 8.4% INJ 100 MEQ in WATER STERILE FOR INJ 850 ML IV SCH ×2 (02:05→08:51)
[2016-12-09 03:31] LABS: AUTOMATED NEUTROPHIL # 7.7 TH/MM3 (1.8-7.7); BASOPHIL % 0.2 % (0.0-2.0); HEMATOCRIT 23.3 % (39.0-51.0); HEMO FLAGS DIFF FINAL; LYMPH % 3.2 % (9.0-44.0); LYMPHOCYTE # 0.3 TH/MM3 (1.0-4.8); MEAN CORPUSCULAR HEMOGLOBIN 29.4 PG (27.0-34.0); MEAN CORPUSCULAR HGB CONC 34.2 % (32.0-36.0); MONO % 3.6 % (0.0-8.0); PLATELET COUNT 249 TH/MM3 (150-450); RED BLOOD COUNT 2.71 MIL/MM3 (4.50-5.90); RED CELL DISTRIBUTION WIDTH 14.7 % (11.6-17.2); WHITE BLOOD COUNT 8.3 TH/MM3 (4.0-11.0)
[2016-12-09 03:54] LABS: APTT (PATIENT) 42.6 SEC (24.3-30.1)
[2016-12-09] MEDS: CHLORHEXIDINE GLUCONATE 2 % 1 PACK (2 CLOTHS) TOP SCH ×2 (04:00)
[2016-12-09 04:11] LABS: BICARBONATE 24.2 MEQ/L (21.0-32.0); POTASSIUM 4.2 MEQ/L (3.5-5.1); TOTAL BILIRUBIN ADULT 0.2 MG/DL (0.2-1.0)
[2016-12-09] MEDS: RESP: ALBUTEROL 2.5 MG/IPRATROPIUM 0.5 MG NEB (SCH) INH ×4 (04:20→20:42)
[2016-12-09 04:36] LABS: CALCIUM-PROTEIN CORRECTED 7.3 MG/DL (8.5-10.1)
--- NOTE | 2016-12-09 05:08 | RADRPT ---
EXAM DATE/TIME: 12/09/2016 04:02 [facility] COMPARISON: CHEST SINGLE AP, December 08, 2016, 4:39. INDICATIONS : Shortness of breath, possible pulmonary disease. MEDICAL HISTORY : Aneurysm, intracranial. Hypertension Chronic obstructive pulmonary disease. SURGICAL HISTORY : Appendectomy. Cerebral aneurysm repair ENCOUNTER: Subsequent ACUITY: 3 days PAIN SCORE: Non-responsive. LOCATION: Bilateral chest FINDINGS: A single view of the chest demonstrates bibasilar densities and probable layering pleural effusion th e left. Cardiomegaly. Endotracheal tube, nasogastric tube and left jugular central line stable in pos ition.. Osseous structures are intact. CONCLUSION: Bibasilar densities and probable layering pleural effusion on the left. Hernandez Mora MD on December 09, 2016 at 5:05 Board Certified Radiologist. This report was verified electronically.
[2016-12-09] MEDS ORDERED: CALCIUM GLUCONATE INJ 2 GM in SODIUM CHLORIDE 0.9% INJ 100 ML IV ONE (05:15)
[2016-12-09] MEDS: INSULIN NovoLIN REGULAR SUPPLEMENTAL SCALE SQ SCH ×4 (06:00→17:29)
[2016-12-09] MEDS ORDERED: BUMETANIDE INJ 1 MG/4 ML VIAL ONE ×2 (07:14)
[2016-12-09] MEDS: CHLORHEXIDINE 0.12% (ORAL KIT) 15 ML CUP MT SCH ×3 (08:00→20:00)
[2016-12-09] MEDS ORDERED: BUMETANIDE INJ 1 MG/4 ML VIAL IV PUSH ONE (08:00)
[2016-12-09] MEDS: cefTRIAXone INJ 1,000 MG in SODIUM CHLORIDE 0.9% INJ 100 ML IV SCH (08:49)
[2016-12-09] MEDS: AZITHROMYCIN INJ 500 MG in SODIUM CHLOR 0.9% 250 ML INJ 250 ML IV SCH (08:49)
[2016-12-09] MEDS: PANTOPRAZOLE SODIUM 40 MG VIAL IV SCH (08:49)
[2016-12-09] MEDS: methylPREDNISolone SOD SUCC 125 MG/2 ML VIAL IV PUSH SCH ×2 (08:50→21:40)
[2016-12-09] MEDS: ASPIRIN 81 MG CHEW TAB CHEW SCH (08:50)
[2016-12-09] MEDS: DOCUSATE SODIUM 50 MG/SENNA 8.6 MG TAB PO SCH ×2 (08:50→21:39)
[2016-12-09 08:52] LABS: BLOOD GAS BASE EXCESS -1.9 mmol/L (-2-2); BLOOD GAS CARBOXYHEMOGLOBIN 1.2 % (0-4); BLOOD GAS HCO3 22 mmol/L (22-26); BLOOD GAS METHEMOGLOBIN 2.1 % (0-2); BLOOD GAS O2 HGB SATURATION 92 % (90-100); BLOOD GAS OXYGEN CONTENT 11.3 Vol % (12.0-20.0); BLOOD GAS PCO2 35 mmHg (38-42); BLOOD GAS PO2 82 mmHg (61-120); BLOOD GAS TOTAL HGB 8.6 G/DL (12.0-16.0); CRITICAL VALUE NO; DRAW SITE RT RADIAL; FIO2 35 %; NUMBER OF ARTERIAL PUNCTURES 1; OXYGEN DEVICE VENTILATOR; STAT NO; TEMP CORR TO 98.6; ULNAR PULSE PRESENT; VENT SETTINGS CPAP+5/PS5
[2016-12-09] MEDS: SODIUM CHLORIDE 0.9% FLUSH 10 ML FLUSH IV FLUSH SCH ×2 (08:52→21:00)
[2016-12-09] MEDS: SODIUM CHLORIDE 0.9% FLUSH 10 ML FLUSH IVF SCH (08:52)
[2016-12-09] MEDS: ARTIFICIAL TEARS OPTH SOLN 15 ML BTL EACH EYE SCH ×3 (08:52→17:29)
--- NOTE | 2016-12-09 09:20 | HHI.CCPN ---
Subjective Remarks/Hospital Course This patient is vietnamese speaking only, and his family was not available to assist in interpretation. In addition, he is in respiratory distress on my evaluation, and additional history is unobtainable from the patient. Per report , this is a 66yM with a history of CHF and prior NSTEMI who presented for shortness of breath. He was hypoxic in ER and placed on BiPAP. He was febrile in the ER. His laboratory data is significant for a leukocytosis, lactic acidosis, Cr 7.7, troponin of 2. SUBJ 12/08: Patient was intubated after known yesterday for worsening respiratory failure. Currently remains intubated sedated. His chest x-ray shows worsening left-sided effusion/infiltrate. I have requested STAT CT chest to better evaluate infiltrate. Hemoglobin dropped from 7.7-6.6. Received 2 units PRBC 12/09: Remains intubated sedated with fentanyl and Precedex. Wakes up easily and nods his head. Hemoglobin stable at 8. No evidence of active bleeding. We 'll resume heparin. Chest x-ray shows persistent left lower lobe infiltrate effusion. Attempt CPAP trial again today. Creatinine remains elevated but slightly improved from 8-7.7 UO 1.2 L in 24 hours Objective Vital Signs Date Time Temp Pulse Resp B/P Pulse Ox O2 Delivery O2 Flow Rate FiO2 12/09/16 07:47 100 35 12/09/16 06:00 77 12/09/16 04:00 97.2 15 126/77 12/07/16 05:35 4.00 12/07/16 04:36 BiPAP Intake and Output 12/08/16 12/08/16 12/09/16 08:00 16:00 00:00 Intake Total 2365 ml 1675 ml 1521 ml Output Total 550 ml 400 ml 200 ml Balance 1815 ml 1275 ml 1321 ml Result Diagram: 12/09/16 0325 12/09/16 0325 Other Results Microbiology Date/Time Procedure Status Source Growth 12/07/16 17:30 Legionella Antigen - Final Complete Urine Catheterized Urine PRESUMPTIVE NEGATIVE FOR LEGIONELLA P... 12/07/16 17:30 Streptococcus pneumoniae Antigen (M - Final Complete Urine Catheterized Urine PRESUMPTIVE NEGATIVE FOR STREPTOCOCCU... Laboratory Tests Test 12/09/16 08:45 Blood Gas Puncture Site RT RADIAL Blood Gas Patient Temperature 98.6 Blood Gas HCO3 22 mmol/L (22-26) Blood Gas Base Excess -1.9 mmol/L (-2-2) Blood Gas Oxygen Saturation 92 % (90-100) Arterial Blood pH 7.41 (7.380-7.420) Arterial Blood Partial 35 mmHg (38-42) Pressure CO2 Arterial Blood Partial 82 mmHg Pressure O2 (61-120) Arterial Blood Oxygen Content 11.3 Vol % (12.0-20.0) Arterial Blood 1.2 % (0-4) Carboxyhemoglobin Arterial Blood Methemoglobin 2.1 % (0-2) Blood Gas Hemoglobin 8.6 G/DL (12.0-16.0) Oxygen Delivery Device VENTILATOR Blood Gas Ventilator Setting CPAP+5/PS5 Blood Gas Inspired Oxygen 35 % Imaging Last Impressions Chest X-Ray 12/06/16 3722 Signed Impressions: Service Date/Time: Tuesday, December 06, 2016 23:29 - CONCLUSION: Bilateral lower lobe consolidation. Sarabjit Tinsley MD Objective Remarks GENERAL: Obese middle-aged male, intubated sedated HEENT: Normocephalic. Atraumatic. Pupils equal, round, reactive, conjugate. Mucous membranes are moist NECK: Trachea is midline. There is no JVD. CHEST: Entry bilaterally no wheezes or crackles diminished at the bases CARDIOVASCULAR: Normal rate, regular rhythm ABDOMEN: Soft, nontender, nondistended. No guarding. MUSCULOSKELETAL: Pulses 2+. No peripheral edema. NEUROLOGICAL: Intubated sedated for ventilator synchrony. On lightening sedation, appears to understand and follow commands A/P Assessment and Plan Assessment: 66yM with acute bibasilar community acquired pneumonia, severe sepsis, lactic acidosis, acute kidney injury, acute hypoxic respiratory failure , multi-organ system failure, NSTEMI. very critically ill. Plan by systems: Neurologic: Tylenol as needed for pain or fever --Precedex and fentanyl for sedation and ventilator synchrony --Daily sedation vacation Respiratory: Acute hypoxic respiratory failure COPD exacerbation Bilateral lower lobe pneumonias/community acquired PRVC/AC. SBT today with parameters Steroids- Solumedrol 60 mg IV q12 Wean FiO2 for SPO2 greater than 90% Antibiotics described below Nebs --CT chest 12/08: Dense bibasilar consolidation left more than right, moderate left effusion --Broad-spectrum antibiotics as below Cardiovascular: NSTEMI LA thrombus Severe sepsis -- Resume heparin drip-Hb stable -- ASA 81 mg daily -- trend troponins -- Cardiology -Dr Chapin -- Echo Mildly dilated left ventricle. LVEF 45-50%. There is distinct regional wall motion abnormalities with akinetic apex and possibly clot at the apex. -- Per Dr Martinez Consider repeating study with contrast/Definity to better asses apex-plan after extubation -- Biatrial moderate dilatation Renal: New severe acute kidney injury Nephrology following UO 1.1 L in 24 hours. No indication for emergency HD at this time --Radius bicarbonate infusion to 100 ML per hour -- renal ultrasound-normal -- [place] with q1h uop -- Strict I/Os FEN/GI: Severe sepsis Intravascular hypovolemia Bicarb gtt at 100 cc an hour Daily BMP Nothing by mouth --Start tube feeds if not extubated Heme/ID: Community acquired bilateral lower lobe pneumonia Severe sepsis Rocephin and azithromycin [place] culture follow up Daily CBC -- Received 2 units PRBC 12/08 transfusion for hemoglobin drop to 6.6 from 7.7. Heparin resume today Endocrine: Type 2 diabetes -- SSI Prophylaxis: GI Prophylaxis Protonix DVT Prophylaxis -- SCDs Heparin drip Lines: Central line placed by Dr. Robertson 12/07/16 Dispo: This patient remains critically ill with one or more organ systems which are or may become a threat to life. I have spent in excess of 32 minutes discontinuously in the care and management of this patient. This time is exclusive of procedures, and includes, but is not limited to, evaluation of the patient, review of the medical record, discussions with family, consultants, nursing staff, or respiratory therapy, and documentation in the medical record. Wyatt Chance MD Dec 09, 2016 09:20
[2016-12-09] MEDS: HEPARIN-D5W 25,000 U/250 ML 250 ML IV SCH (10:33)
--- NOTE | 2016-12-09 12:26 | HHI.NPPN ---
Subjective History of Present Illness 66-year-old male with past medical history of hypertension, diabetes mellitus, history of cerebrovascular accident with left-sided weakness, hyperlipidemia, bronchial asthma, chronic kidney disease who was admitted because of shortness of breath and chest pain. I was called to see the patient because of elevated BUN and creatinine. The patient was diagnosed here with non-ST elevation OR. The patient has history of chronic kidney disease. Additional Remarks Patient now extubated, not in distress. Objective Data Data 12/08/16 12/09/16 18:59 06:59 Intake Total 1675 ml 2951 ml Output Total 400 ml 700 ml Balance 1275 ml 2251 ml Intake IV Total 1675 ml 2951 ml Output Urine Total 400 ml 700 ml # Bowel Movements 0 Vital Signs Date Time Temp Pulse Resp B/P Pulse Ox O2 Delivery O2 Flow Rate FiO2 12/09/16 09:42 93 Nasal Cannula 4 12/09/16 09:42 93 Nasal Cannula 4.00 12/09/16 08:00 40 12/09/16 07:47 100 35 12/09/16 07:47 35 12/09/16 06:00 77 12/09/16 04:21 97 40 12/09/16 04:00 78 12/09/16 04:00 97.2 79 15 126/77 97 12/09/16 04:00 35 12/09/16 02:00 83 12/09/16 00:39 97 35 12/09/16 00:00 97.2 86 15 133/82 97 12/09/16 00:00 35 12/09/16 00:00 86 12/08/16 22:00 87 12/08/16 21:10 100 35 12/08/16 20:00 35 12/08/16 20:00 98.4 103 14 141/80 100 12/08/16 20:00 88 12/08/16 16:08 40 12/08/16 16:00 97.7 101 20 147/80 100 12/08/16 15:00 94 35 12/08/16 14:00 100 100 -: 12/09/16 0325 12/09/16 0325 Physical Exam General Appearance: No Acute Distress, Comfortable Eyes Eye Exam: Pupils Equal Throat Throat Exam: Oral Mucosa [place] & Moist Neck Neck Exam: Neck Supple Pulmonary Resp Exam: No Distress, Rhonchi, Decreased Bases, Diminished Breath Sounds Cardiology CV Exam: Regular, Normal Sinus Rhythm Gastrointestinal/Abdomen GI Exam: Soft, Non-Tender, Bowel Sounds Present Extremeties Extremities Exam: Moderate Edema Neurologic Neuro Exam: Alert, Awake Psychiatric Psych Exam: Appropriate Responses Assessment/Plan Assessment Summary: WILLIE/Acute Renal Failure, CHF, CKD Stage IV Problem List: (1) NSTEMI (non-ST elevated myocardial infarction) (2) Diabetes mellitus (3) Asthma (4) Shortness of breath (5) Leg edema (6) Hypertension (7) CKD (chronic kidney disease) stage 4, GFR 15-29 ml/min (8) ARF (acute renal failure) Plan Patient has been non oliguric, Creatinine is still close to 8.0. K is normal, Hco3 is normal now. D/C IVF with NaHco3 and give NS. Cardiology follow up noted, on IV Heparin. Follow urine out put and BMP. May will need HD if no improvement. Has proteinuria, send serology. Problem Qualifiers (1) Diabetes mellitus: (2) ARF (acute renal failure): Qualified Code: N17.9 - Acute renal failure, unspecified acute renal failure type Zoey Carbone MD Dec 09, 2016 12:26
[2016-12-09] MEDS: SODIUM CHLOR 0.9% 1000 ML INJ 1,000 ML IV SCH (12:59)
[2016-12-09 19:50] LABS: APTT (PATIENT) 67.5 SEC (24.3-30.1)
[2016-12-09] MEDS: CALCIUM CARBONATE 1.25 GM (CA 500 MG) TAB PO SCH (21:39)
[2016-12-10] VITALS (33 sets, daily range): BP systolic 151–188; BP diastolic 84–107; PULSE 90–112; RESP 13–27; TEMP 98.1–99.3; O2SAT 92–100
[2016-12-10] MEDS ORDERED: LABETALOL HCL 100 MG/20 ML VIAL IV ONE (00:15)
[2016-12-10] MEDS ORDERED: METOPROLOL TARTRATE 25 MG TAB PO ONE (00:15)
[2016-12-10] MEDS: SODIUM CHLOR 0.9% 1000 ML INJ 1,000 ML IV SCH ×2 (00:28→17:18)
[2016-12-10] MEDS: CHLORHEXIDINE GLUCONATE 2 % 1 PACK (2 CLOTHS) TOP SCH (04:00)
[2016-12-10] MEDS: RESP: ALBUTEROL 2.5 MG/IPRATROPIUM 0.5 MG NEB (SCH) INH ×4 (04:25→20:20)
[2016-12-10 05:42] LABS: AUTOMATED NEUTROPHIL # 10.2 TH/MM3 (1.8-7.7); HEMATOCRIT 24.8 % (39.0-51.0); LYMPH % 3.7 % (9.0-44.0); LYMPHOCYTE # 0.4 TH/MM3 (1.0-4.8); MEAN CELL VOLUME 85.3 FL (80.0-100.0); MEAN CORPUSCULAR HEMOGLOBIN 29.2 PG (27.0-34.0); MEAN CORPUSCULAR HGB CONC 34.3 % (32.0-36.0); MONO % 5.2 % (0.0-8.0); NEUT % 91.1 % (16.0-70.0); PLATELET COUNT 254 TH/MM3 (150-450); RED BLOOD COUNT 2.91 MIL/MM3 (4.50-5.90); RED CELL DISTRIBUTION WIDTH 14.6 % (11.6-17.2); WHITE BLOOD COUNT 11.1 TH/MM3 (4.0-11.0)
[2016-12-10 05:43] LABS: HEMO FLAGS DIFF FINAL
[2016-12-10] MEDS: INSULIN NovoLIN REGULAR SUPPLEMENTAL SCALE SQ SCH ×4 (06:00→18:00)
--- NOTE | 2016-12-10 06:01 | RADRPT ---
EXAM DATE/TIME: 12/10/2016 03:43 [facility] COMPARISON: CHEST SINGLE AP, December 09, 2016, 4:02. INDICATIONS : Shortness of breath, possible pulmonary disease. MEDICAL HISTORY : Aneurysm, intracranial. Hypertension Chronic obstructive pulmonary disease. SURGICAL HISTORY : Appendectomy. Cerebral aneurysm repair. ENCOUNTER: Subsequent ACUITY: 4 - 6 days PAIN SCORE: Non-responsive. LOCATION: Bilateral chest FINDINGS: A single view of the chest demonstrates better aeration of the lungs. Minimal left basilar density. L eft jugular central line and left-sided [employer] shunt are unchanged. Endotracheal tube and nasogastric tub e have been removed. The cardiomediastinal contours are unremarkable. Osseous structures are intact. CONCLUSION: Better aeration of the lungs with minimal left basilar density. Hernandez Mora MD on December 10, 2016 at 5:59 Board Certified Radiologist. This report was verified electronically.
[2016-12-10 06:26] LABS: BICARBONATE 23.8 MEQ/L (21.0-32.0); POTASSIUM 3.8 MEQ/L (3.5-5.1); TOTAL BILIRUBIN ADULT 0.2 MG/DL (0.2-1.0)
[2016-12-10 06:34] LABS: CALCIUM-PROTEIN CORRECTED 6.8 MG/DL (8.5-10.1)
[2016-12-10 06:42] LABS: APTT (PATIENT) 158.5 SEC (24.3-30.1)
[2016-12-10] MEDS ORDERED: CALCIUM GLUCONATE INJ 2 GM in SODIUM CHLORIDE 0.9% INJ 100 ML IV ONE (07:00)
[2016-12-10] MEDS: CHLORHEXIDINE 0.12% (ORAL KIT) 15 ML CUP MT SCH ×2 (08:00→20:27)
[2016-12-10] MEDS: CALCIUM CARBONATE 1.25 GM (CA 500 MG) TAB PO SCH (08:23)
[2016-12-10] MEDS: ASPIRIN 81 MG CHEW TAB CHEW SCH (08:23)
[2016-12-10] MEDS: DOCUSATE SODIUM 50 MG/SENNA 8.6 MG TAB PO SCH ×2 (08:23→20:28)
[2016-12-10] MEDS: PANTOPRAZOLE SODIUM 40 MG VIAL IV SCH (08:23)
[2016-12-10] MEDS: AZITHROMYCIN INJ 500 MG in SODIUM CHLOR 0.9% 250 ML INJ 250 ML IV SCH (08:24)
[2016-12-10] MEDS: SODIUM CHLORIDE 0.9% FLUSH 10 ML FLUSH IVF SCH (08:24)
[2016-12-10] MEDS: SODIUM CHLORIDE 0.9% FLUSH 10 ML FLUSH IV FLUSH SCH ×2 (08:24→20:27)
[2016-12-10] MEDS: methylPREDNISolone SOD SUCC 125 MG/2 ML VIAL IV PUSH SCH ×2 (08:24→20:26)
[2016-12-10] MEDS: cefTRIAXone INJ 1,000 MG in SODIUM CHLORIDE 0.9% INJ 100 ML IV SCH (08:24)
[2016-12-10] MEDS: ARTIFICIAL TEARS OPTH SOLN 15 ML BTL EACH EYE SCH ×2 (08:25→18:13)
--- NOTE | 2016-12-10 09:13 | HHI.CCPN ---
Subjective Remarks/Hospital Course This patient is yakut speaking only, and his family was not available to assist in interpretation. In addition, he is in respiratory distress on my evaluation, and additional history is unobtainable from the patient. Per report , this is a 66yM with a history of CHF and prior NSTEMI who presented for shortness of breath. He was hypoxic in ER and placed on BiPAP. He was febrile in the ER. His laboratory data is significant for a leukocytosis, lactic acidosis, Cr 7.7, troponin of 2. SUBJ 12/08: Patient was intubated after known yesterday for worsening respiratory failure. Currently remains intubated sedated. His chest x-ray shows worsening left-sided effusion/infiltrate. I have requested STAT CT chest to better evaluate infiltrate. Hemoglobin dropped from 7.7-6.6. Received 2 units PRBC 12/09: Remains intubated sedated with fentanyl and Precedex. Wakes up easily and nods his head. Hemoglobin stable at 8. No evidence of active bleeding. We 'll resume heparin. Chest x-ray shows persistent left lower lobe infiltrate effusion. Attempt CPAP trial again today. Creatinine remains elevated but slightly improved from 8-7.7 UO 1.2 L in 24 hours 12/10: Patient was extubated yesterday tolerating well respiratory clifford. Good oxygen saturation. Chest x-ray shows improving infiltrates. Urine output 2.2L in 24 hours. Creatinine remains elevated at 7.7. No acute indication for hemodialysis Objective Vital Signs Date Time Temp Pulse Resp B/P Pulse Ox O2 Delivery O2 Flow Rate FiO2 12/10/16 08:15 96 21 12/10/16 06:00 109 12/10/16 04:00 98.7 14 158/90 12/09/16 09:42 Nasal Cannula 4 Intake and Output 12/09/16 12/09/16 12/10/16 08:00 16:00 00:00 Intake Total 1430 ml 1310 ml 1071 ml Output Total 500 ml 800 ml 750 ml Balance 930 ml 510 ml 321 ml Result Diagram: 12/10/16 0445 12/10/16 0445 Other Results Microbiology Date/Time Procedure Status Source Growth 12/07/16 17:30 Legionella Antigen - Final Complete Urine Catheterized Urine PRESUMPTIVE NEGATIVE FOR LEGIONELLA P... 12/07/16 17:30 Streptococcus pneumoniae Antigen (M - Final Complete Urine Catheterized Urine PRESUMPTIVE NEGATIVE FOR STREPTOCOCCU... Imaging Last Impressions Chest X-Ray 12/06/16 4322 Signed Impressions: Service Date/Time: Tuesday, December 06, 2016 23:29 - CONCLUSION: Bilateral lower lobe consolidation. Sarabjit Tinsley MD Objective Remarks GENERAL: Obese middle-aged male, extubated HEENT: Normocephalic. Atraumatic. Pupils equal, round, reactive, conjugate. NECK: Trachea is midline. There is no JVD. CHEST: Entry bilaterally no wheezes or crackles diminished at the bases CARDIOVASCULAR: Tachycardic rate, regular rhythm ABDOMEN: Soft, nontender, nondistended. No guarding. MUSCULOSKELETAL: Pulses 2+. No peripheral edema. NEUROLOGICAL: Alert awake. Azeri speaking. Follows commands, non focal exam Urinary Catheter: Yes Assessment to: Continue A/P Assessment and Plan Assessment: 66yM with acute bibasilar community acquired pneumonia, sepsis, acute kidney injury, acute hypoxic respiratory failure, multi-organ system failure, NSTEMI. very critically ill. Plan by systems: Neurologic: Tylenol as needed for pain or fever --As needed Morphine for pain, anxiety Respiratory: Acute hypoxic respiratory failure COPD exacerbation Bilateral lower lobe pneumonias/community acquired Extubated 12/09, tolerating well Solumedrol 60 mg IV q12 Wean FiO2 for SPO2 greater than 90% Antibiotics described below Nebs, EzPAP, Acapella --CT chest 12/08: Dense bibasilar consolidation left more than right, moderate left effusion, CXR shows improving infiltrates --Broad-spectrum antibiotics as below Cardiovascular: NSTEMI LA thrombus Severe sepsis -- Continue heparin drip-Hb stable. Will not transition to oral anticoagulants yet due to possible need for dialysis catheter placement -- ASA 81 mg daily. start Coreg 6.25 mg BID -- Trend troponins, Cardiology -Dr Chapin -- Echo Mildly dilated left ventricle. LVEF 45-50%. There is distinct regional wall motion abnormalities with akinetic apex and possibly clot at the apex. - Biatrial moderate dilatation -- Per Dr Martinez Consider repeating study with contrast/Definity to better asses apex-plan after extubation Renal: New severe acute kidney injury Nephrology following UO 2.2 L in 24 hours. No indication for emergency HD at this time -- On NS at 84 ml per hour, reduce to 50 ml per hour -- Renal ultrasound-normal -- Young with q1h uop -- Strict I/Os FEN/GI: Severe sepsis Intravascular hypovolemia IV as above Daily BMP Swallow eval. Renal diet as tolerated Heme/ID: Community acquired bilateral lower lobe pneumonia Severe sepsis Rocephin and azithromycin [place] culture follow up-neg to date Daily CBC -- Received 2 units PRBC 12/08 transfusion for hemoglobin drop to 6.6 from 7.7. -- Hb is 8.5 today Endocrine: Type 2 diabetes -- SSI Prophylaxis: GI Prophylaxis Protonix DVT Prophylaxis -- SCDs Heparin drip Lines: Central line placed by Dr. Robertson 12/07/16 Dispo: Level 3 Wyatt Chance MD Dec 10, 2016 09:13
[2016-12-10 09:18] LABS: APTT (PATIENT) 77.4 SEC (24.3-30.1)
[2016-12-10] MEDS: MORPHINE SULFATE 4 MG/ML INJ IV PUSH PRN ×2 (09:40→14:26)
[2016-12-10] MEDS: CARVEDILOL 6.25 MG TAB PO SCH ×2 (10:00→20:28)
[2016-12-10] MEDS: CALCITRIOL 0.25 MCG CAP PO SCH (12:45)
--- NOTE | 2016-12-10 12:46 | HHI.NPPN ---
Subjective History of Present Illness 66-year-old male with past medical history of hypertension, diabetes mellitus, history of cerebrovascular accident with left-sided weakness, hyperlipidemia, bronchial asthma, chronic kidney disease who was admitted because of shortness of breath and chest pain. I was called to see the patient because of elevated BUN and creatinine. The patient was diagnosed here with non-ST elevation [place]. The patient has history of chronic kidney disease. Additional Remarks Patient is alert, has mild SOB with cough, no chest pain. Objective Data Data 12/09/16 12/10/16 18:59 06:59 Intake Total 1310 ml 1772 ml Output Total 800 ml 1400 ml Balance 510 ml 372 ml Intake Oral 340 ml IV Total 1310 ml 1432 ml Output Urine Total 800 ml 1400 ml # Bowel Movements 0 0 Vital Signs Date Time Temp Pulse Resp B/P Pulse Ox O2 Delivery O2 Flow Rate FiO2 12/10/16 09:27 99 25 12/10/16 08:15 96 21 12/10/16 06:00 109 12/10/16 04:00 98.7 100 14 158/90 96 12/10/16 04:00 100 12/10/16 02:00 97 12/10/16 00:00 112 12/10/16 00:00 98.3 112 14 169/87 95 12/09/16 22:00 114 12/09/16 20:43 96 12/09/16 20:00 98.9 115 23 157/85 99 12/09/16 20:00 115 12/09/16 19:00 111 14 160/78 98 12/09/16 18:39 112 26 169/79 99 12/09/16 18:30 110 19 157/116 99 12/09/16 18:01 111 19 184/91 99 12/09/16 18:00 111 23 99 12/09/16 17:30 102 24 148/80 100 12/09/16 17:00 99 12 153/79 99 12/09/16 16:30 98 19 158/79 99 12/09/16 16:00 98.6 96 22 162/92 100 12/09/16 15:30 97 22 170/89 100 12/09/16 15:00 96 14 168/93 100 12/09/16 14:30 97 22 170/95 100 12/09/16 14:00 93 20 161/89 100 12/09/16 13:30 91 11 160/92 100 12/09/16 13:00 93 21 151/85 100 -: 12/10/16 0445 12/10/16 0445 Physical Exam General Appearance: No Acute Distress, Comfortable Eyes Eye Exam: Pupils Equal Throat Throat Exam: Oral Mucosa [place] & Moist Neck Neck Exam: Neck Supple Pulmonary Resp Exam: No Distress, Rhonchi, Decreased Bases, Diminished Breath Sounds Cardiology CV Exam: Regular, Normal Sinus Rhythm Gastrointestinal/Abdomen GI Exam: Soft, Non-Tender, Bowel Sounds Present Extremeties Extremities Exam: Moderate Edema Neurologic Neuro Exam: Alert, Awake Psychiatric Psych Exam: Appropriate Responses Assessment/Plan Assessment Summary: WILLIE/Acute Renal Failure, CHF, CKD Stage IV Problem List: (1) NSTEMI (non-ST elevated myocardial infarction) (2) Diabetes mellitus (3) Asthma (4) Shortness of breath (5) Leg edema (6) Hypertension (7) CKD (chronic kidney disease) stage 4, GFR 15-29 ml/min (8) ARF (acute renal failure) Plan Patient has been non oliguric, Creatinine is still 7.7. K is normal, Hco3 is normal now. Cardiology follow up noted, on IV Heparin. Follow urine out put and BMP. May will need HD if no improvement. Has proteinuria, serology pending. Add Phoslo as Po4 is elevated and calcitriol as Calcium is low. IV Calcium given in AM. BP is elevated Coreg started. Continue antibiotics and steroid. Problem Qualifiers (1) Diabetes mellitus: (2) ARF (acute renal failure): Qualified Code: N17.9 - Acute renal failure, unspecified acute renal failure type Zoey Carbone MD Dec 10, 2016 12:46
[2016-12-10] MEDS: CALCIUM ACETATE 667 MG CAP PO SCH ×2 (13:00→17:54)
[2016-12-10 17:22] LABS: APTT (PATIENT) 63.2 SEC (24.3-30.1)
[2016-12-10] MEDS: LABETALOL HCL 100 MG/20 ML VIAL IV PRN (20:36)
[2016-12-11] VITALS (15 sets, daily range): BP systolic 152–176; BP diastolic 76–99; PULSE 84–97; RESP 16–24; TEMP 97.9–98.7; O2SAT 96–100
[2016-12-11] MEDS: LABETALOL HCL 100 MG/20 ML VIAL IV PRN ×5 (00:21→14:26)
[2016-12-11 01:06] LABS: APTT (PATIENT) 57.7 SEC (24.3-30.1)
--- NOTE | 2016-12-11 03:05 | RADRPT ---
EXAM DATE/TIME: 12/11/2016 02:17 [facility] COMPARISON: CHEST SINGLE AP, December 10, 2016, 3:43. INDICATIONS : Shortness of breath, possible pulmonary disease. MEDICAL HISTORY : Aneurysm, intracranial. Hypertension Chronic obstructive pulmonary disease. SURGICAL HISTORY : Appendectomy. Cerebral aneurysm repair ENCOUNTER: Subsequent ACUITY: 1 week PAIN SCORE: Non-responsive. LOCATION: Bilateral chest FINDINGS: Left internal jugular catheter tip projects over the origin of the superior vena cava. There is pers istent and increasing consolidation in the left lower lung, now with complete loss of delineation of the medial left hemidiaphragm. Patchy infiltrates in the right lower lung are new and there is parti al loss of delineation of the right hemidiaphragm. The heart is upper limits normal size. Moderate tortuosity descending thoracic aorta. CONCLUSION: Increasing infiltrates with consolidation medial left lower lung and new right lower lung infiltrates . Jose Roberto Cheema MD on December 11, 2016 at 3:03 Board Certified Radiologist. This report was verified electronically.
[2016-12-11] MEDS: RESP: ALBUTEROL 2.5 MG/IPRATROPIUM 0.5 MG NEB (SCH) INH ×4 (03:26→21:05)
[2016-12-11] MEDS: CHLORHEXIDINE GLUCONATE 2 % 1 PACK (2 CLOTHS) TOP SCH (04:00)
[2016-12-11 05:13] LABS: APTT (PATIENT) 54.5 SEC (24.3-30.1); AUTOMATED NEUTROPHIL # 8.2 TH/MM3 (1.8-7.7); BASOPHIL % 0.1 % (0.0-2.0); HEMATOCRIT 24.3 % (39.0-51.0); HEMO FLAGS DIFF FINAL; LYMPH % 5.5 % (9.0-44.0); LYMPHOCYTE # 0.5 TH/MM3 (1.0-4.8); MEAN CELL VOLUME 86.6 FL (80.0-100.0); MEAN CORPUSCULAR HEMOGLOBIN 29.7 PG (27.0-34.0); MEAN CORPUSCULAR HGB CONC 34.3 % (32.0-36.0); MONO % 5.4 % (0.0-8.0); PLATELET COUNT 237 TH/MM3 (150-450); RED CELL DISTRIBUTION WIDTH 14.8 % (11.6-17.2); WHITE BLOOD COUNT 9.2 TH/MM3 (4.0-11.0)
[2016-12-11 05:36] LABS: BICARBONATE 23.5 MEQ/L (21.0-32.0); MAGNESIUM 2.1 MG/DL (1.5-2.5); POTASSIUM 3.9 MEQ/L (3.5-5.1); TOTAL BILIRUBIN ADULT 0.2 MG/DL (0.2-1.0)
[2016-12-11] MEDS: INSULIN NovoLIN REGULAR SUPPLEMENTAL SCALE SQ SCH ×4 (05:37→18:00)
[2016-12-11 05:48] LABS: CALCIUM-PROTEIN CORRECTED 6.9 MG/DL (8.5-10.1)
[2016-12-11 07:59] LABS: CRITICAL VALUE YES
[2016-12-11] MEDS: CHLORHEXIDINE 0.12% (ORAL KIT) 15 ML CUP MT SCH ×2 (08:00→20:00)
[2016-12-11] MEDS: AZITHROMYCIN INJ 500 MG in SODIUM CHLOR 0.9% 250 ML INJ 250 ML IV SCH (08:53)
[2016-12-11] MEDS: cefTRIAXone INJ 1,000 MG in SODIUM CHLORIDE 0.9% INJ 100 ML IV SCH (08:53)
[2016-12-11] MEDS: methylPREDNISolone SOD SUCC 125 MG/2 ML VIAL IV PUSH SCH ×2 (08:54→20:52)
[2016-12-11] MEDS: ARTIFICIAL TEARS OPTH SOLN 15 ML BTL EACH EYE SCH ×3 (08:54→18:09)
[2016-12-11] MEDS: PANTOPRAZOLE SODIUM 40 MG VIAL IV SCH (08:54)
[2016-12-11] MEDS: SODIUM CHLORIDE 0.9% FLUSH 10 ML FLUSH IVF SCH (08:54)
[2016-12-11] MEDS: SODIUM CHLORIDE 0.9% FLUSH 10 ML FLUSH IV FLUSH SCH ×2 (08:54→20:52)
[2016-12-11] MEDS: ASPIRIN 81 MG CHEW TAB CHEW SCH (08:55)
[2016-12-11] MEDS: DOCUSATE SODIUM 50 MG/SENNA 8.6 MG TAB PO SCH ×2 (08:56→20:53)
[2016-12-11] MEDS: CALCIUM ACETATE 667 MG CAP PO SCH ×3 (08:56→18:09)
[2016-12-11] MEDS: CARVEDILOL 6.25 MG TAB PO SCH ×2 (08:56→20:53)
[2016-12-11] MEDS: CALCITRIOL 0.25 MCG CAP PO SCH (08:56)
[2016-12-11] MEDS ORDERED: BUMETANIDE INJ 1 MG/4 ML VIAL IV PUSH ONE ×2 (11:30→17:00)
--- NOTE | 2016-12-11 11:51 | HHI.CCPN ---
Subjective Remarks/Hospital Course This patient is maori speaking only, and his family was not available to assist in interpretation. In addition, he is in respiratory distress on my evaluation, and additional history is unobtainable from the patient. Per report , this is a 66yM with a history of CHF and prior NSTEMI who presented for shortness of breath. He was hypoxic in ER and placed on BiPAP. He was febrile in the ER. His laboratory data is significant for a leukocytosis, lactic acidosis, Cr 7.7, troponin of 2. SUBJ 12/08: Patient was intubated after known yesterday for worsening respiratory failure. Currently remains intubated sedated. His chest x-ray shows worsening left-sided effusion/infiltrate. I have requested STAT CT chest to better evaluate infiltrate. Hemoglobin dropped from 7.7-6.6. Received 2 units PRBC 12/09: Remains intubated sedated with fentanyl and Precedex. Wakes up easily and nods his head. Hemoglobin stable at 8. No evidence of active bleeding. We 'll resume heparin. Chest x-ray shows persistent left lower lobe infiltrate effusion. Attempt CPAP trial again today. Creatinine remains elevated but slightly improved from 8-7.7 UO 1.2 L in 24 hours 12/10: Patient was extubated yesterday tolerating well respiratory clifford. Good oxygen saturation. Chest x-ray shows improving infiltrates. Urine output 2.2L in 24 hours. Creatinine remains elevated at 7.7. No acute indication for hemodialysis 12/11: Oxygen saturation about 95% on room air, has bilateral scattered wheezing. Chest x-ray shows increased bilateral basilar infiltrates/effusion. BUN/creatinine essentially same. UO 2.2 L in 24 hours. Give Bumex 2 mg IVP x1. Continues to fail swallow eval, place NGT Objective Vital Signs Date Time Temp Pulse Resp B/P Pulse Ox O2 Delivery O2 Flow Rate FiO2 12/11/16 10:00 85 12/11/16 08:00 98.7 16 169/90 100 12/11/16 00:02 30 12/09/16 09:42 Nasal Cannula 4 Intake and Output 12/10/16 12/10/16 12/10/16 07:59 15:59 23:59 Intake Total 701 ml 955 ml 436 ml Output Total 650 ml 750 ml 700 ml Balance 51 ml 205 ml -264 ml Result Diagram: 12/11/16 0315 12/11/16 0315 Imaging Last Impressions Chest X-Ray 12/06/16 1275 Signed Impressions: Service Date/Time: Tuesday, December 06, 2016 23:29 - CONCLUSION: Bilateral lower lobe consolidation. Sarabjit Tinsley MD Objective Remarks GENERAL: Obese middle-aged male, in mild discomfort due to wheezing. HEENT: Normocephalic. Atraumatic. Pupils equal, round, reactive, conjugate. NECK: Trachea is midline. There is no JVD. CHEST: Air Entry bilaterally equal. Mild wheezes anteriorly CARDIOVASCULAR: Tachycardic rate, regular rhythm ABDOMEN: Soft, nontender, nondistended. No guarding. MUSCULOSKELETAL: Pulses 2+. No peripheral edema. NEUROLOGICAL: Alert awake. Thai speaking. Follows commands, non focal exam A/P Assessment and Plan Assessment: 66yM with acute bibasilar community acquired pneumonia, sepsis, acute kidney injury, acute hypoxic respiratory failure, multi-organ system failure, NSTEMI. critically ill. Plan by systems: Neurologic: Tylenol as needed for pain or fever --As needed Morphine for pain, anxiety Respiratory: Acute hypoxic respiratory failure COPD exacerbation Bilateral lower lobe pneumonias/community acquired Extubated 12/09, tolerating well Solu-Medrol 60 mg IV q12 Wean FiO2 for SPO2 greater than 90% Antibiotics as below Nebs, EzPAP, Acapella --CT chest 12/08: Dense bibasilar consolidation left more than right, moderate left effusion, CXR today with some worsening of effusion --Broad-spectrum antibiotics as below --Start Symbicort and Spiriva Cardiovascular: NSTEMI LA thrombus Severe sepsis -- Continue heparin drip-Hb stable. Will not transition to oral anticoagulants yet due to possible need for dialysis catheter placement -- ASA 81 mg daily. Coreg 6.25 mg BID -- Trend troponins, Cardiology -Dr Chapin -- Echo Mildly dilated left ventricle. LVEF 45-50%. There is distinct regional wall motion abnormalities with akinetic apex and possibly clot at the apex. - Biatrial moderate dilatation -- Per Dr Martinez Consider repeating study with contrast/Definity to better asses apex-plan after extubation Renal: New severe acute kidney injury Nephrology following UO 2.2 L in 24 hours. No indication for emergency HD at this time -- DC IVF, Bumex 2 mg IV x1 due to increasing pl effusion -- Renal ultrasound-normal -- Young with q1h uop, Strict I/Os FEN/GI: Severe sepsis Daily BMP Swallow eval failed agian. NPO. Place NGT Heme/ID: Community acquired bilateral lower lobe pneumonia Severe sepsis Continue Rocephin and azithromycin [place] culture follow up-neg to date Daily CBC -- Received 2 units PRBC 12/08 transfusion for hemoglobin drop to 6.6 from 7.7. -- Hb stable Endocrine: Type 2 diabetes -- SSI Prophylaxis: GI Prophylaxis Protonix DVT Prophylaxis -- SCDs Heparin drip Lines: Central line placed by Dr. Robertson 12/07/16 Dispo: Level 3. Continue ICU care Wyatt Chance MD Dec 11, 2016 11:51
[2016-12-11] MEDS: HEPARIN-D5W 25,000 U/250 ML 250 ML IV SCH (11:57)
[2016-12-11] MEDS: TIOTROPIUM BROMIDE 18 MCG INH INH SCH (12:16)
[2016-12-11] MEDS: BUDESONIDE-FORMOTEROL 160/4.5 MCG INHALER INH SCH ×2 (12:16→20:51)
[2016-12-11] MEDS ORDERED: CALCIUM GLUCONATE INJ 2 GM in DEXTROSE 5% IN WATER 100ML INJ 100 ML IV ONE ×2 (13:00)
[2016-12-11] MEDS: MORPHINE SULFATE 4 MG/ML INJ IV PUSH PRN (14:26)
[2016-12-11] MEDS: SODIUM CHLORIDE 0.9% FLUSH 10 ML FLUSH IV FLUSH PRN (14:26)
[2016-12-11] MEDS: cloNIDine HCL 0.2 MG TAB PO SCH (15:37)
[2016-12-11] MEDS: hydrALAZINE HCL 20 MG/ML VIAL IV PUSH PRN ×2 (15:38→22:24)
--- NOTE | 2016-12-11 16:43 | HHI.NPPN ---
Subjective History of Present Illness 66-year-old male with past medical history of hypertension, diabetes mellitus, history of cerebrovascular accident with left-sided weakness, hyperlipidemia, bronchial asthma, chronic kidney disease who was admitted because of shortness of breath and chest pain. I was called to see the patient because of elevated BUN and creatinine. The patient was diagnosed here with non-ST elevation [place]. The patient has history of chronic kidney disease. Additional Remarks Patient is alert, has mild SOB with cough, no chest pain, not eating well. Objective Data Data 12/10/16 12/11/16 18:59 06:59 Intake Total 955 ml 859 ml Output Total 750 ml 1450 ml Balance 205 ml -591 ml Intake Oral 0 ml IV Total 955 ml 859 ml Output Urine Total 750 ml 1450 ml # Bowel Movements 0 0 Vital Signs Date Time Temp Pulse Resp B/P Pulse Ox O2 Delivery O2 Flow Rate FiO2 12/11/16 16:00 97 12/11/16 16:00 98.4 97 24 152/76 99 12/11/16 14:00 91 12/11/16 12:00 90 12/11/16 12:00 97.9 90 18 176/95 99 12/11/16 10:00 85 12/11/16 08:00 98.7 88 16 169/90 100 12/11/16 08:00 88 12/11/16 06:00 87 12/11/16 04:00 98.3 90 16 167/90 98 12/11/16 04:00 90 12/11/16 02:00 91 12/11/16 00:02 100 30 12/11/16 00:00 95 12/11/16 00:00 98.5 95 18 172/99 97 12/10/16 22:00 90 12/10/16 20:22 97 12/10/16 20:00 96 12/10/16 20:00 98.1 96 16 166/93 100 12/10/16 18:00 94 13 154/85 100 12/10/16 17:30 95 14 165/95 100 12/10/16 17:00 96 14 169/90 100 -: 12/11/16 0315 12/11/16 0315 Physical Exam General Appearance: No Acute Distress, Comfortable Eyes Eye Exam: Pupils Equal Throat Throat Exam: Oral Mucosa [place] & Moist Neck Neck Exam: Neck Supple Pulmonary Resp Exam: No Distress, Rhonchi, Decreased Bases, Diminished Breath Sounds Cardiology CV Exam: Regular, Normal Sinus Rhythm Gastrointestinal/Abdomen GI Exam: Soft, Non-Tender, Bowel Sounds Present Extremeties Extremities Exam: Moderate Edema Neurologic Neuro Exam: Alert, Awake Psychiatric Psych Exam: Appropriate Responses Assessment/Plan Assessment Summary: WILLIE/Acute Renal Failure, CHF, CKD Stage IV Problem List: (1) NSTEMI (non-ST elevated myocardial infarction) (2) Diabetes mellitus (3) Asthma (4) Shortness of breath (5) Leg edema (6) Hypertension (7) CKD (chronic kidney disease) stage 4, GFR 15-29 ml/min (8) ARF (acute renal failure) Plan Patient has been non oliguric, Creatinine is still above 7. K is normal, Hco3 is normal now. Follow urine out put and BMP. May will need HD if no improvement. Has proteinuria, serology pending. Added Phoslo as Po4 is elevated and calcitriol as Calcium is low. BP is elevated Clonidine increased. Continue antibiotics and steroid. Get 2 4 hr. urine protein. If not better, possible HD tomorrow. Problem Qualifiers (1) Diabetes mellitus: (2) ARF (acute renal failure): Qualified Code: N17.9 - Acute renal failure, unspecified acute renal failure type Zoey Carbone MD Dec 11, 2016 16:42
--- NOTE | 2016-12-11 20:23 | PD.CARD.PN ---
Subjective Subjective Remarks No CP or SOB, feels better, BP high Objective Medications Current Medications Medications (Trade) Dose Ordered Sig/Abby Route Start Time Stop Time Status Last Admin (D50w (Vial) Inj) 25 ml UNSCH PRN IV PUSH 12/07/16 00:45 (NovoLIN R SUPPLEMENTAL SCALE) 1 Q6HR SQ 12/07/16 06:00 12/11/16 18:00 (Zofran Inj) 4 mg Q6H PRN IV 12/07/16 00:45 Methylprednisolone Sodium Succinate 60 mg 60 mg Q12HR IV PUSH 12/07/16 09:00 12/11/16 08:54 Azithromycin 500 mg/Sodium Chloride 250 ml @ 250 mls/hr Q24H IV 12/08/16 09:00 12/15/16 08:59 12/11/16 08:53 Ceftriaxone Sodium 1000 mg/ Sodium Chloride 100 ml @ 200 mls/hr Q24H IV 12/08/16 09:00 12/15/16 08:59 12/11/16 08:53 (Heparin-D5W Inj) 250 ml @ 0 mls/hr TITRATE IV 12/07/16 01:45 12/11/16 11:57 (NS Flush) DAILY IVF 12/07/16 15:30 12/11/16 08:54 (NS Flush) UNSCH PRN IVF 12/07/16 15:30 (Peridex 0.12% Liq) 15 ml BID@08,20 MT 12/07/16 20:00 12/10/16 20:27 (NS Flush) 2 ml UNSCH PRN IV FLUSH 12/07/16 15:30 12/11/16 14:26 (NS Flush) 2 ml BID IV FLUSH 12/07/16 21:00 12/11/16 08:54 (Tylenol) 650 mg Q6H PRN PO 12/07/16 15:30 (Protonix Inj) 40 mg DAILY IV 12/08/16 09:00 12/11/16 08:54 (Tears Naturale Opth Soln) 1 drop TID EACH EYE 12/07/16 18:00 12/11/16 18:09 Miscellaneous Information 1 Q361D XX 12/07/16 15:30 (Chlorhexidine 2% Cloth) 3 pack Taper DAILY@04 TOP 12/08/16 04:00 12/04/17 03:59 12/11/16 04:00 (Chlorhexidine 2% Cloth) 3 pack UNSCH PRN TOP 12/07/16 15:30 (Sara-Colace) 1 tab BID PO 12/07/16 21:00 12/10/16 08:23 (Milk Of Magnesia Liq) 30 ml Q12H PRN PO 12/07/16 15:30 (Senokot) 17.2 mg Q12H PRN PO 12/07/16 15:30 (Dulcolax Supp) 10 mg DAILY PRN RECTAL 12/07/16 15:30 (Lactulose Liq) 30 ml DAILY PRN PO 12/07/16 15:30 (Aspirin Chew) 81 mg DAILY CHEW 12/08/16 12:00 12/10/16 08:23 (Trandate Inj) 20 mg Q2H PRN IV 12/10/16 00:15 12/11/16 14:26 (Morphine Inj) 2 mg Q3H PRN IV PUSH 12/10/16 09:15 12/11/16 14:26 (Coreg) 6.25 mg Q12HR PO 12/10/16 10:00 (Phoslo) 1,334 mg TID PO 12/10/16 13:00 12/11/16 18:09 (Rocaltrol) 0.5 mcg DAILY PO 12/10/16 12:45 (Symbicort 160-4.5 Inh) 1 puff Q12HR INH 12/11/16 12:00 12/11/16 12:16 (Spiriva Inh) 18 mcg DAILY INH 12/11/16 12:00 12/11/16 12:16 (Catapres) 0.2 mg Q8H PO 12/11/16 16:00 12/11/16 15:37 (Norvasc) 10 mg DAILY PO 12/11/16 15:15 12/11/16 15:15 (Apresoline Inj) 20 mg Q4H PRN IV PUSH 12/11/16 15:15 12/11/16 15:38 Vital Signs / I&O Vital Signs Date Time Temp Pulse Resp B/P Pulse Ox O2 Delivery O2 Flow Rate FiO2 12/11/16 18:00 91 12/11/16 16:00 97 12/11/16 16:00 98.4 97 24 152/76 99 12/11/16 14:00 91 12/11/16 12:00 90 12/11/16 12:00 97.9 90 18 176/95 99 12/11/16 10:00 85 12/11/16 08:00 98.7 88 16 169/90 100 12/11/16 08:00 88 12/11/16 06:00 87 12/11/16 04:00 98.3 90 16 167/90 98 12/11/16 04:00 90 12/11/16 02:00 91 12/11/16 00:02 100 30 12/11/16 00:00 95 12/11/16 00:00 98.5 95 18 172/99 97 12/10/16 22:00 90 12/10/16 20:22 97 I/O 12/10/16 12/10/16 12/10/16 12/11/16 12/11/16 12/11/16 07:00 15:00 23:00 07:00 15:00 23:00 Intake Total 701 ml 955 ml 436 ml 423 ml 961 ml Output Total 650 ml 750 ml 700 ml 750 ml 1150 ml Balance 51 ml 205 ml -264 ml -327 ml -189 ml Intake Oral 100 ml 0 ml 0 ml IV Total 601 ml 955 ml 436 ml 423 ml 961 ml Output Urine Total 650 ml 750 ml 700 ml 750 ml 1150 ml # Bowel Movements 0 0 0 0 0 Physical Exam GENERAL: In NAD SKIN: Warm and dry. HEAD: Normocephalic. EYES: No scleral icterus. No injection or drainage. NECK: Supple, trachea midline. No JVD or lymphadenopathy. CARDIOVASCULAR: Regular rate and rhythm, mild tachycardia, no murmurs, gallops, or rubs. RESPIRATORY: Breath sounds equal bilaterally. No accessory muscle use. GASTROINTESTINAL: Abdomen soft, non-tender, nondistended. MUSCULOSKELETAL: No cyanosis, mild edema, dry, scaly skin Laboratory Laboratory Tests Test 12/11/16 12/11/16 00:15 03:15 Activated Partial 57.7 SEC 54.5 SEC Thromboplast Time White Blood Count 9.2 TH/MM3 Red Blood Count 2.80 MIL/MM3 Hemoglobin 8.3 GM/DL Hematocrit 24.3 % Mean Corpuscular Volume 86.6 FL Mean Corpuscular Hemoglobin 29.7 PG Mean Corpuscular Hemoglobin 34.3 % Concent Red Cell Distribution Width 14.8 % Platelet Count 237 TH/MM3 Mean Platelet Volume 9.4 FL Neutrophils (%) (Auto) 89.0 % Lymphocytes (%) (Auto) 5.5 % Monocytes (%) (Auto) 5.4 % Eosinophils (%) (Auto) 0.0 % Basophils (%) (Auto) 0.1 % Neutrophils # (Auto) 8.2 TH/MM3 Lymphocytes # (Auto) 0.5 TH/MM3 Monocytes # (Auto) 0.5 TH/MM3 Eosinophils # (Auto) 0.0 TH/MM3 Basophils # (Auto) 0.0 TH/MM3 CBC Comment DIFF FINAL Differential Comment Sodium Level 140 MEQ/L Potassium Level 3.9 MEQ/L Chloride Level 102 MEQ/L Carbon Dioxide Level 23.5 MEQ/L Anion Gap 15 MEQ/L Blood Urea Nitrogen 100 MG/DL Creatinine 7.40 MG/DL Estimat Glomerular Filtration 7 ML/MIN Rate Random Glucose 143 MG/DL Calcium Level 6.6 MG/DL Protein Corrected Calcium 6.9 MG/DL Magnesium Level 2.1 MG/DL Total Bilirubin 0.2 MG/DL Aspartate Amino Transf 15 U/L (AST/SGOT) Alanine Aminotransferase 20 U/L (ALT/SGPT) Alkaline Phosphatase 71 U/L Total Protein 6.4 GM/DL Albumin 2.4 GM/DL Imaging Last Impressions Chest X-Ray 12/11/16 0600 Signed Impressions: Service Date/Time: Sunday, December 11, 2016 02:17 - CONCLUSION: Increasing infiltrates with consolidation medial left lower lung and new right lower lung infiltrates. Jose Roberto Cheema MD Chest CT 12/08/16 0000 Signed Impressions: Service Date/Time: Thursday, December 08, 2016 14:02 - CONCLUSION: 1. Bilateral lower lobe consolidating airspace disease. 2. Small to moderate bilateral pleural effusions; larger on the left. 3. Cardiomegaly. 4. Endotracheal and nasogastric tubes in good position. Tutu Christianson MD Renal Ultrasound 12/07/16 0000 Signed Impressions: Service Date/Time: November 07:54 - CONCLUSION: Unremarkable and stable bilateral renal ultrasound. No evidence of hydronephrosis. Baron Medrano MD Assessment and Plan Problem List: (1) Respiratory failure (2) Sepsis (3) Pneumonia (4) ARF (acute renal failure) (5) Elevated troponin (6) Diabetes mellitus (7) Hypertension (8) Morbid obesity (9) Anemia Assessment and Plan Continue ICU care. Extubated, symptoms improving. Titrate tx for severe HTN. Obtain echo w contrast. Continue tx for pneumonia. Needs evaluation for anemia, since if the LV thrombus is confirmed, he will need full oral anticoagulation. Continue aggressive risk factor modification. Increase activity. Problem Qualifiers (1) Sepsis: Qualified Code: A41.9 - Sepsis, due to unspecified organism (2) Pneumonia: Qualified Code: J18.9 - Pneumonia of both lower lobes due to infectious organism (3) ARF (acute renal failure): Qualified Code: N17.9 - Acute renal failure, unspecified acute renal failure type (4) Diabetes mellitus: (5) Anemia: Qualified Code: D64.89 - Anemia due to other cause, not classified Mark Chapin MD Dec 11, 2016 20:23
[2016-12-12] VITALS (15 sets, daily range): BP systolic 155–170; BP diastolic 72–109; PULSE 78–90; RESP 18–22; TEMP 97.7–98.5; O2SAT 96–100
[2016-12-12] MEDS: cloNIDine HCL 0.2 MG TAB PO SCH (01:00)
[2016-12-12] MEDS: RESP: ALBUTEROL 2.5 MG/IPRATROPIUM 0.5 MG NEB (SCH) INH ×4 (03:58→23:27)
[2016-12-12] MEDS: CHLORHEXIDINE GLUCONATE 2 % 1 PACK (2 CLOTHS) TOP SCH (04:00)
--- NOTE | 2016-12-12 04:59 | RADRPT ---
EXAM DATE/TIME: 12/12/2016 03:49 [facility] COMPARISON: CHEST SINGLE AP, December 11, 2016, 2:17. INDICATIONS : Short of breath. MEDICAL HISTORY : Aneurysm, intracranial. Hypertension Chronic obstructive pulmonary SURGICAL HISTORY : Appendectomy. Cerebral aneurysm repair ENCOUNTER: Subsequent ACUITY: 4 - 6 days PAIN SCORE: 0/10 LOCATION: Bilateral chest FINDINGS: Left internal jugular catheter tip projects over the origin of the superior vena cava. Gastric tube and left-sided shunt tubing traverses the [id number]. There is persistent bilateral lower lung in filtrates with consolidation on the left side and loss of delineation of most of both hemidiaphragms. The infiltrates are similar in size and severity to prior exam. The upper lungs remain clear. CONCLUSION: Bilateral lower lung consolidative infiltrates, stable in severity from prior. Jose Roberto Cheema MD on December 12, 2016 at 4:56 Board Certified Radiologist. This report was verified electronically.
[2016-12-12 06:22] LABS: AUTOMATED NEUTROPHIL # 8.4 TH/MM3 (1.8-7.7); BASOPHIL % 0.1 % (0.0-2.0); HEMATOCRIT 26.3 % (39.0-51.0); LYMPHOCYTE # 0.5 TH/MM3 (1.0-4.8); MEAN CELL VOLUME 87.1 FL (80.0-100.0); MEAN CORPUSCULAR HEMOGLOBIN 29.6 PG (27.0-34.0); MONO % 3.8 % (0.0-8.0); NEUT % 91.1 % (16.0-70.0); PLATELET COUNT 242 TH/MM3 (150-450); RED BLOOD COUNT 3.02 MIL/MM3 (4.50-5.90); RED CELL DISTRIBUTION WIDTH 14.5 % (11.6-17.2); WHITE BLOOD COUNT 9.2 TH/MM3 (4.0-11.0)
[2016-12-12 06:27] LABS: HEMO FLAGS AUTO DIFF
[2016-12-12 06:35] LABS: APTT (PATIENT) 37.9 SEC (24.3-30.1)
[2016-12-12] MEDS: hydrALAZINE HCL 20 MG/ML VIAL IV PUSH PRN ×3 (06:46→18:41)
[2016-12-12 07:02] LABS: BICARBONATE 19.5 MEQ/L (21.0-32.0); CALCIUM-PROTEIN CORRECTED 7.6 MG/DL (8.5-10.1); MAGNESIUM 2.2 MG/DL (1.5-2.5); POTASSIUM 4.2 MEQ/L (3.5-5.1); TOTAL BILIRUBIN ADULT 0.3 MG/DL (0.2-1.0)
--- NOTE | 2016-12-12 07:43 | HHI.CCPN ---
Subjective Remarks/Hospital Course This patient is macedonian speaking only, and his family was not available to assist in interpretation. In addition, he is in respiratory distress on my evaluation, and additional history is unobtainable from the patient. Per report , this is a 66yM with a history of CHF and prior NSTEMI who presented for shortness of breath. He was hypoxic in ER and placed on BiPAP. He was febrile in the ER. His laboratory data is significant for a leukocytosis, lactic acidosis, Cr 7.7, troponin of 2. SUBJ 12/08: Patient was intubated after known yesterday for worsening respiratory failure. Currently remains intubated sedated. His chest x-ray shows worsening left-sided effusion/infiltrate. I have requested STAT CT chest to better evaluate infiltrate. Hemoglobin dropped from 7.7-6.6. Received 2 units PRBC 12/09: Remains intubated sedated with fentanyl and Precedex. Wakes up easily and nods his head. Hemoglobin stable at 8. No evidence of active bleeding. We 'll resume heparin. Chest x-ray shows persistent left lower lobe infiltrate effusion. Attempt CPAP trial again today. Creatinine remains elevated but slightly improved from 8-7.7 UO 1.2 L in 24 hours 12/10: Patient was extubated yesterday tolerating well respiratory clifford. Good oxygen saturation. Chest x-ray shows improving infiltrates. Urine output 2.2L in 24 hours. Creatinine remains elevated at 7.7. No acute indication for hemodialysis 12/11: Oxygen saturation about 95% on room air, has bilateral scattered wheezing. Chest x-ray shows increased bilateral basilar infiltrates/effusion. BUN/creatinine essentially same. UO 2.2 L in 24 hours. Give Bumex 2 mg IVP x1. Continues to fail swallow eval, place NGT 12/12: Received 5 mg total Bumex yesterday. Urine output 3.5 L but BUN/ creatinine remains elevated (120/7). Discussed with Dr. Kelsey, will start hemodialysis today. I'll check an aPTT after holding heparin 4 hours. NG tube placed yesterday into feeds started due to continued aspiration on swallow eval Objective Vital Signs Date Time Temp Pulse Resp B/P Pulse Ox O2 Delivery O2 Flow Rate FiO2 12/12/16 06:00 82 12/12/16 04:00 98.4 170/86 100 12/12/16 01:08 30 12/11/16 16:00 24 12/09/16 09:42 Nasal Cannula 4 Intake and Output 12/11/16 12/11/16 12/11/16 07:59 15:59 23:59 Intake Total 423 ml 961 ml 516 ml Output Total 750 ml 1150 ml 1425 ml Balance -327 ml -189 ml -909 ml Result Diagram: 12/12/16 0505 12/12/16 0505 Imaging Last Impressions Chest X-Ray 12/06/16 7609 Signed Impressions: Service Date/Time: Tuesday, December 06, 2016 23:29 - CONCLUSION: Bilateral lower lobe consolidation. Sarabjit Tinsley MD Objective Remarks GENERAL: Obese middle-aged male, in mild discomfort HEENT: Normocephalic. Atraumatic. Pupils equal, round, reactive, conjugate. NECK: Trachea is midline. There is no JVD. CHEST: Air Entry bilaterally equal. Mild wheezes anteriorly. Diminished breath sounds at the bases CARDIOVASCULAR: Tachycardic rate, regular rhythm ABDOMEN: Soft, nontender, nondistended. No guarding. MUSCULOSKELETAL: Pulses 2+. No peripheral edema. NEUROLOGICAL: Alert awake. Romansh speaking. Follows commands, non focal exam A/P Assessment and Plan Assessment: 66yM with acute bibasilar community acquired pneumonia, sepsis, acute kidney injury, acute hypoxic respiratory failure, multi-organ system failure, NSTEMI. critically ill, but improving Plan by systems: Neurologic: Tylenol as needed for pain or fever --As needed Morphine for pain, anxiety Respiratory: Acute hypoxic respiratory failure-resolved COPD exacerbation Bilateral lower lobe pneumonias/community acquired Bilateral small effusions Extubated 12/09, tolerating well Solu-Medrol 60 mg IV q12, reduce to 40 mg q12 Antibiotics as below Nebs, EzPAP, Acapella --CT chest 12/08: Dense bibasilar consolidation left more than right, moderate left effusion --Broad-spectrum antibiotics as below --Symbicort and Spiriva Cardiovascular: NSTEMI LA thrombus Severe sepsis -- Continue heparin drip-Hb stable. Will not transition to oral anticoagulants due to possible need for dialysis catheter placement -- ASA 81 mg daily. Coreg 6.25 mg BID. Norvasc 10 mg daily. Increase clonidine to 0.3 mg po TID -- Cardiology -Dr Chapin. Echo Mildly dilated left ventricle. LVEF 45-50%. There is distinct regional WMA with akinetic apex and possibly clot at the apex. - Biatrial moderate dilatation -- Per Dr Martinez Consider repeating study with contrast/Definity to better asses apex-defer to Dr. Chapin Renal: New severe acute kidney injury -- Nephrology following UO 3.5 L in 24 hours with 5 mg IV Bumex on 12/11 -- BUN/creatinine remains high 120/7 -- Place HD catheter today, to start HD -- Renal ultrasound-normal -- Young with q1h uop, Strict I/Os FEN/GI: Daily BMP Swallow eval failed. NGT with tube feeds Heme/ID: Community acquired bilateral lower lobe pneumonia Severe sepsis Continue Rocephin and azithromycin [place] culture follow up-neg to date Daily CBC -- Received 2 units PRBC 12/08 transfusion for hemoglobin drop to 6.6 from 7.7. -- Hb stable now Endocrine: Type 2 diabetes -- SSI Prophylaxis: GI Prophylaxis Protonix DVT Prophylaxis -- SCDs Heparin drip Lines: Central line placed by Dr. Robertson 12/07/16 Dispo: CCT32. Patient stable from respiratory standpoint but BUN worse, /creatinine stable. Start hemodialysis today after placing HD catheter Wyatt Chance MD Dec 12, 2016 07:43
[2016-12-12] MEDS: CHLORHEXIDINE 0.12% (ORAL KIT) 15 ML CUP MT SCH ×2 (07:50→20:00)
[2016-12-12] MEDS: cefTRIAXone INJ 1,000 MG in SODIUM CHLORIDE 0.9% INJ 100 ML IV SCH (07:50)
[2016-12-12] MEDS: SODIUM CHLORIDE 0.9% FLUSH 10 ML FLUSH IV FLUSH SCH ×2 (07:51→20:14)
[2016-12-12] MEDS: SODIUM CHLORIDE 0.9% FLUSH 10 ML FLUSH IVF SCH (07:51)
[2016-12-12] MEDS: CALCITRIOL 0.25 MCG CAP PO SCH (07:51)
[2016-12-12] MEDS: AZITHROMYCIN INJ 500 MG in SODIUM CHLOR 0.9% 250 ML INJ 250 ML IV SCH (07:51)
[2016-12-12] MEDS: CARVEDILOL 6.25 MG TAB PO SCH ×2 (07:52→20:06)
[2016-12-12] MEDS: cloNIDine HCL 0.3 MG TAB PO SCH ×3 (07:52→23:33)
[2016-12-12] MEDS: ASPIRIN 81 MG CHEW TAB CHEW SCH (07:52)
[2016-12-12] MEDS: CALCIUM ACETATE 667 MG CAP PO SCH ×3 (07:52→18:02)
[2016-12-12] MEDS: DOCUSATE SODIUM 50 MG/SENNA 8.6 MG TAB PO SCH ×2 (07:53→20:06)
[2016-12-12] MEDS: ARTIFICIAL TEARS OPTH SOLN 15 ML BTL EACH EYE SCH ×4 (07:53→20:15)
[2016-12-12] MEDS: PANTOPRAZOLE SODIUM 40 MG VIAL IV SCH (07:53)
[2016-12-12] MEDS: methylPREDNISolone SOD SUCC 125 MG/2 ML VIAL IV PUSH SCH (07:53)
[2016-12-12] MEDS: BUDESONIDE-FORMOTEROL 160/4.5 MCG INHALER INH SCH ×2 (07:53→20:15)
[2016-12-12] MEDS: TIOTROPIUM BROMIDE 18 MCG INH INH SCH (07:54)
[2016-12-12 08:57] LABS: BANDS 3 % (0-6); CORRECTED NUCLEATED RBC 1 /100 WBC (0-0); METAMYELOCYTES 1 % (0-1); MYELOCYTES 2 % (0-0); NEUTROPHIL # MANUAL DIFF 8.2 TH/MM3 (1.8-7.7); OVALOCYTES 1+ (NORMAL); PLATELET ESTIMATE SMEAR NORMAL (NORMAL); PLATELET MORPHOLOGY NORMAL (NORMAL); POLYS (SEG NEUTROPHILS) 83 % (16-70); SCAN/DIFF FINAL DIFF MANUAL; WBC DIFF SAMPLE 100
[2016-12-12] MEDS: INSULIN NovoLIN REGULAR SUPPLEMENTAL SCALE SQ SCH ×4 (11:32→23:33)
[2016-12-12] MEDS: SODIUM CHLORIDE 0.9% FLUSH 10 ML FLUSH IV FLUSH PRN (11:32)
[2016-12-12 11:52] LABS: APTT (PATIENT) 26.4 SEC (24.3-30.1)
[2016-12-12] MEDS ORDERED: SODIUM CHLOR 0.9% 1000 ML INJ 1,000 ML IV PRN ×2 (12:11)
[2016-12-12] MEDS ORDERED: ONDANSETRON HCL 4 MG/2 ML VIAL IV PRN (12:15)
[2016-12-12] MEDS ORDERED: NITROGLYCERIN 0.4 MG SL 25 TABS/BTL SL PRN (12:15)
[2016-12-12] MEDS ORDERED: GELATIN 12 MM/7 MM FOAM TOP PRN (12:15)
[2016-12-12] MEDS ORDERED: MANNITOL 12.5 GM/50 ML VIAL IV PRN (12:15)
[2016-12-12] MEDS ORDERED: ACETAMINOPHEN 325 MG TAB PO PRN (12:15)
[2016-12-12] MEDS ORDERED: cloNIDine HCL 0.1 MG TAB PO PRN (12:15)
[2016-12-12 13:00] LABS: URINE TOTAL PROTEIN TIMED 160.8 MG/DL
[2016-12-12] MEDS: MORPHINE SULFATE 4 MG/ML INJ IV PUSH PRN (14:04)
[2016-12-12] MEDS ORDERED: LORazepam 2 MG/ML VIAL ONE (14:17)
[2016-12-12] MEDS ORDERED: LORazepam 2 MG/ML VIAL IV PUSH ONE (14:45)
--- NOTE | 2016-12-12 14:52 | PD.PROCEDR ---
Central Line Procedure REASON FOR PROCEDURE Central venous access PROCEDURE PERFORMED Central line placement: [facility] CONSENT Informed consent for procedure was obtained and time out performed. The risks and benefits of the procedure were discussed to include but limited to bleeding , clot formation, infection, and even . ANESTHESIA Local injection of 1% Lidocaine DESCRIPTION OF THE PROCEDURE The patient was placed in supine, mild Trendelenburg position. The area was exposed and cleansed with ChloraPrep, times two. Large sterile drape was used to cover the patient, with the site exposed, under sterile conditions including cap, face mask, sterile gown, and sterile gloves. On single attempt, the introducer needle was inserted with negative pressure in syringe and venous flash was obtained. The guide wire was then advanced without any restriction and the needle was removed. The dilator was used without any complications. Using Seldinger technique the 20 CM 14F 2 lumen catheter was advanced over the guide wire to a depth of 18 centimeters. The guide wire was removed. All ports were aspirated with dark venous blood return and flushed easily with sterile saline. All ports were capped. Antibiotic disc was placed around central line at puncture site. The central line was secured to the skin with two interrupted 2.0 silk sutures. The area was bandaged with sterile see- through central line bandage. RADIOLOGICAL DATA Ultrasound guidance was used to locate RIJ. Doppler/color flow was used to confirm venous flow. COMPLICATIONS: No apparent complications ESTIMATED BLOOD LOSS: Less than 1 cc. Wyatt Chance MD Dec 12, 2016 14:52
--- NOTE | 2016-12-12 15:12 | RADRPT ---
EXAM DATE/TIME: 12/12/2016 14:42 [facility] COMPARISON: CHEST SINGLE AP, December 12, 2016, 3:49. INDICATIONS : Post VasCath placement. MEDICAL HISTORY : Aneurysm, intracranial. Hypertension Chronic obstructive pulmonary. SURGICAL HISTORY : Appendectomy. Cerebral aneurysm repair. ENCOUNTER: Subsequent ACUITY: 1 day PAIN SCORE: Non-responsive. LOCATION: Bilateral chest FINDINGS: The heart is enlarged. A right internal jugular VasCath has its tip in the superior vena cava. Left internal jugular central line has its tip in the superior vena cava also. There is no pneumothorax. There is improved aeration of lungs with very minimal residual pulmonary vascular congestion noted. A small left pleural effusion is likely. A ventriculoperitoneal shunt traverses the left hemithorax . Degenerative changes and scoliosis of the thoracic spine are noted. CONCLUSION: 1. Improved aeration of the lungs with minimal residual pulmonary vascular congestion noted. 2. Cardiomegaly. 3. Small left pleural effusion. 4. Degenerative changes and scoliosis of the thoracic spine. 5. Right internal jugular VasCath has its tip in good position in the superior vena cava. No pneumot horax is noted. Ji Cedillo MD on December 12, 2016 at 15:06 Board Certified Radiologist. This report was verified electronically.
--- NOTE | 2016-12-12 16:07 | PD.CARD.PN ---
Subjective Subjective Remarks No CP or SOB, resting comfortably, dialysis planned Objective Medications Current Medications Medications (Trade) Dose Ordered Sig/Abby Route Start Time Stop Time Status Last Admin (D50w (Vial) Inj) 25 ml UNSCH PRN IV PUSH 12/07/16 00:45 (NovoLIN R SUPPLEMENTAL SCALE) 1 Q6HR SQ 12/07/16 06:00 12/12/16 11:32 Ondansetron HCl 4 mg 4 mg Q6H PRN IV 12/07/16 00:45 Azithromycin 500 mg/Sodium Chloride 250 ml @ 250 mls/hr Q24H IV 12/08/16 09:00 12/15/16 08:59 12/12/16 07:51 Ceftriaxone Sodium 1000 mg/ Sodium Chloride 100 ml @ 200 mls/hr Q24H IV 12/08/16 09:00 12/15/16 08:59 12/12/16 07:50 (Heparin-D5W Inj) 250 ml @ 0 mls/hr TITRATE IV 12/07/16 01:45 12/11/16 11:57 (NS Flush) DAILY IVF 12/07/16 15:30 12/12/16 07:51 (NS Flush) UNSCH PRN IVF 12/07/16 15:30 (Peridex 0.12% Liq) 15 ml BID@08,20 MT 12/07/16 20:00 12/10/16 20:27 (NS Flush) 2 ml UNSCH PRN IV FLUSH 12/07/16 15:30 12/12/16 11:32 (NS Flush) 2 ml BID IV FLUSH 12/07/16 21:00 12/12/16 07:51 (Tylenol) 650 mg Q6H PRN PO 12/07/16 15:30 (Protonix Inj) 40 mg DAILY IV 12/08/16 09:00 12/12/16 07:53 (Tears Naturale Opth Soln) 1 drop TID EACH EYE 12/07/16 18:00 12/12/16 13:00 Miscellaneous Information 1 Q361D XX 12/07/16 15:30 (Chlorhexidine 2% Cloth) 3 pack Taper DAILY@04 TOP 12/08/16 04:00 12/04/17 03:59 12/12/16 04:00 (Chlorhexidine 2% Cloth) 3 pack UNSCH PRN TOP 12/07/16 15:30 (Sara-Colace) 1 tab BID PO 12/07/16 21:00 12/12/16 07:53 (Milk Of Magnesia Liq) 30 ml Q12H PRN PO 12/07/16 15:30 (Senokot) 17.2 mg Q12H PRN PO 12/07/16 15:30 (Dulcolax Supp) 10 mg DAILY PRN RECTAL 12/07/16 15:30 (Lactulose Liq) 30 ml DAILY PRN PO 12/07/16 15:30 (Aspirin Chew) 81 mg DAILY CHEW 12/08/16 12:00 12/12/16 07:52 (Trandate Inj) 20 mg Q2H PRN IV 12/10/16 00:15 12/11/16 14:26 (Morphine Inj) 2 mg Q3H PRN IV PUSH 12/10/16 09:15 12/12/16 14:04 (Coreg) 6.25 mg Q12HR PO 12/10/16 10:00 12/12/16 07:52 (Phoslo) 1,334 mg TID PO 12/10/16 13:00 12/12/16 07:52 (Rocaltrol) 0.5 mcg DAILY PO 12/10/16 12:45 12/12/16 07:51 (Symbicort 160-4.5 Inh) 1 puff Q12HR INH 12/11/16 12:00 12/12/16 07:53 (Spiriva Inh) 18 mcg DAILY INH 12/11/16 12:00 12/12/16 07:54 (Norvasc) 10 mg DAILY PO 12/11/16 15:15 12/12/16 07:52 (Apresoline Inj) 20 mg Q4H PRN IV PUSH 12/11/16 15:15 12/12/16 11:32 (Catapres) 0.3 mg Q8H PO 12/12/16 08:00 12/12/16 07:52 Methylprednisolone Sodium Succinate 40 mg 40 mg Q12H IV PUSH 12/12/16 20:00 (NS 1000 ml Inj) 1,000 ml @ 0 mls/hr Q0M PRN IV 12/12/16 12:11 Heparin Sodium (Porcine) 8000 units 8,000 units UNSCH PRN IVF 12/12/16 12:15 Sodium Chloride 1,000 ml @ 200 mls/hr Q5H PRN IV 12/12/16 12:11 (NS 1000 ml Inj) 1,000 ml @ 0 mls/hr Q0M PRN IV 12/12/16 12:11 (Mannitol Inj) 12.5 gm UNSCH PRN IV 12/12/16 12:15 (Albumin 25% Inj) 25 gm UNSCH PRN IV 12/12/16 12:15 (NS Flush) 5 ml UNSCH PRN IV FLUSH 12/12/16 12:15 (Heparin Inj) UNSCH PRN .XX 12/12/16 12:15 (Gentamicin (Dialysis) Inj) 20 mg UNSCH PRN IV 12/12/16 12:15 (Zofran Inj) 4 mg UNSCH PRN IV 12/12/16 12:15 (Tylenol) 650 mg UNSCH PRN PO 12/12/16 12:15 (Benadryl) 25 mg UNSCH PRN PO 12/12/16 12:15 (Nitrostat Sl) 0.4 mg UNSCH PRN SL 12/12/16 12:15 (Catapres) 0.1 mg UNSCH PRN PO 12/12/16 12:15 (Epogen Inj) 10,000 units UNSCH PRN IV 12/12/16 12:15 (Gelfoam 12 Mm/7 Mm Top) 1 foam UNSCH PRN TOP 12/12/16 12:15 Vital Signs / I&O Vital Signs Date Time Temp Pulse Resp B/P Pulse Ox O2 Delivery O2 Flow Rate FiO2 12/12/16 14:00 86 12/12/16 12:00 81 12/12/16 12:00 98.2 81 18 165/77 99 12/12/16 10:00 78 12/12/16 09:07 96 12/12/16 08:00 88 12/12/16 08:00 98.0 88 20 167/79 100 12/12/16 06:00 82 12/12/16 04:00 98.4 82 170/86 100 12/12/16 04:00 82 12/12/16 02:00 82 12/12/16 01:08 100 30 12/12/16 00:00 85 12/12/16 00:00 98.5 85 168/81 100 12/11/16 23:45 100 30 12/11/16 22:00 84 12/11/16 21:05 96 21 12/11/16 20:00 98.6 89 164/82 99 12/11/16 20:00 89 12/11/16 18:00 91 I/O 12/11/16 12/11/16 12/11/16 12/12/16 12/12/16 12/12/16 06:59 14:59 22:59 06:59 14:59 22:59 Intake Total 423 ml 961 ml 516 ml 390 ml 517 ml Output Total 750 ml 1150 ml 1425 ml 1000 ml 775 ml Balance -327 ml -189 ml -909 ml -610 ml -258 ml Intake Oral 0 ml IV Total 423 ml 961 ml 476 ml 390 ml 357 ml Tube Feeding 40 ml Tube Irrigant 160 ml Output Urine Total 750 ml 1150 ml 1425 ml 1000 ml 775 ml # Bowel Movements 0 0 0 Physical Exam GENERAL: In NAD SKIN: Warm and dry. HEAD: Normocephalic. EYES: No scleral icterus. No injection or drainage. NECK: Supple, trachea midline. No JVD or lymphadenopathy. CARDIOVASCULAR: Regular rate and rhythm, mild tachycardia, no murmurs, gallops, or rubs. RESPIRATORY: Breath sounds equal bilaterally. No accessory muscle use. GASTROINTESTINAL: Abdomen soft, non-tender, nondistended. MUSCULOSKELETAL: No cyanosis, mild edema, dry, scaly skin Laboratory Laboratory Tests Test 12/12/16 12/12/16 05:05 11:00 White Blood Count 9.2 TH/MM3 Red Blood Count 3.02 MIL/MM3 Hemoglobin 8.9 GM/DL Hematocrit 26.3 % Mean Corpuscular Volume 87.1 FL Mean Corpuscular Hemoglobin 29.6 PG Mean Corpuscular Hemoglobin 34.0 % Concent Red Cell Distribution Width 14.5 % Platelet Count 242 TH/MM3 Mean Platelet Volume 9.3 FL Neutrophils (%) (Auto) 91.1 % Lymphocytes (%) (Auto) 5.0 % Monocytes (%) (Auto) 3.8 % Eosinophils (%) (Auto) 0.0 % Basophils (%) (Auto) 0.1 % Neutrophils # (Auto) 8.4 TH/MM3 Lymphocytes # (Auto) 0.5 TH/MM3 Monocytes # (Auto) 0.3 TH/MM3 Eosinophils # (Auto) 0.0 TH/MM3 Basophils # (Auto) 0.0 TH/MM3 CBC Comment AUTO DIFF Differential Total Cells 100 Counted Neutrophils % (Manual) 83 % Band Neutrophils % 3 % Lymphocytes % 8 % Monocytes % 3 % Neutrophils # (Manual) 8.2 TH/MM3 Metamyelocytes 1 % Myelocytes 2 % Nucleated Red Blood Cells 1 /100 WBC Differential Comment FINAL DIFF MANUAL Platelet Estimate NORMAL Platelet Morphology Comment NORMAL Ovalocytes 1+ Activated Partial 37.9 SEC 26.4 SEC Thromboplast Time Sodium Level 140 MEQ/L Potassium Level 4.2 MEQ/L Chloride Level 104 MEQ/L Carbon Dioxide Level 19.5 MEQ/L Anion Gap 17 MEQ/L Blood Urea Nitrogen 121 MG/DL Creatinine 7.07 MG/DL Estimat Glomerular Filtration 8 ML/MIN Rate Random Glucose 221 MG/DL Calcium Level 7.1 MG/DL Protein Corrected Calcium 7.6 MG/DL Magnesium Level 2.2 MG/DL Total Bilirubin 0.3 MG/DL Aspartate Amino Transf 12 U/L (AST/SGOT) Alanine Aminotransferase 22 U/L (ALT/SGPT) Alkaline Phosphatase 69 U/L Total Protein 6.2 GM/DL Albumin 2.4 GM/DL Imaging Last Impressions Chest X-Ray 12/12/16 0600 Signed Impressions: Service Date/Time: Monday, December 12, 2016 03:49 - CONCLUSION: Bilateral lower lung consolidative infiltrates, stable in severity from prior. Jose Roberto Cheema MD Chest CT 12/08/16 0000 Signed Impressions: Service Date/Time: Thursday, December 08, 2016 14:02 - CONCLUSION: 1. Bilateral lower lobe consolidating airspace disease. 2. Small to moderate bilateral pleural effusions; larger on the left. 3. Cardiomegaly. 4. Endotracheal and nasogastric tubes in good position. Tutu Christianson MD Renal Ultrasound 12/07/16 0000 Signed Impressions: Service Date/Time: November 07:54 - CONCLUSION: Unremarkable and stable bilateral renal ultrasound. No evidence of hydronephrosis. Baron Medrano MD Assessment and Plan Problem List: (1) Respiratory failure (2) Sepsis (3) Pneumonia (4) ARF (acute renal failure) (5) Elevated troponin (6) Diabetes mellitus (7) Hypertension (8) Morbid obesity (9) Anemia Assessment and Plan Continue ICU care. No cardiac complaints. Titrate tx for severe HTN. Obtain echo w contrast. Continue tx for pneumonia. Needs evaluation for anemia, since if the LV thrombus is confirmed, he will need full oral anticoagulation. Continue aggressive risk factor modification. Increase activity. Start dialysis as planned. Problem Qualifiers (1) Sepsis: Qualified Code: A41.9 - Sepsis, due to unspecified organism (2) Pneumonia: Qualified Code: J18.9 - Pneumonia of both lower lobes due to infectious organism (3) ARF (acute renal failure): Qualified Code: N17.9 - Acute renal failure, unspecified acute renal failure type (4) Diabetes mellitus: (5) Anemia: Qualified Code: D64.89 - Anemia due to other cause, not classified Mark Chapin MD Dec 12, 2016 16:07
[2016-12-12] MEDS: GENTAMICIN SULFATE (DIALYSIS USE ONLY) 20 MG/2 ML VIAL IV PRN (17:03)
[2016-12-12] MEDS: HEPARIN SODIUM - IV 10,000 UNITS/10 ML VIAL PRN (17:03)
--- NOTE | 2016-12-12 18:17 | HHI.NPPN ---
Subjective History of Present Illness 66-year-old male with past medical history of hypertension, diabetes mellitus, history of cerebrovascular accident with left-sided weakness, hyperlipidemia, bronchial asthma, chronic kidney disease who was admitted because of shortness of breath and chest pain. I was called to see the patient because of elevated BUN and creatinine. The patient was diagnosed here with non-ST elevation CA. The patient has history of chronic kidney disease. Additional Remarks Patient is alert, has more SOB with cough, now better, seen after HD. Objective Data Data 12/11/16 12/12/16 19:00 07:00 Intake Total 961 ml 906 ml Output Total 1150 ml 2425 ml Balance -189 ml -1519 ml IV Total 961 ml 866 ml Tube Feeding 40 ml Output Urine Total 1150 ml 2425 ml # Bowel Movements 0 Vital Signs Date Time Temp Pulse Resp B/P Pulse Ox O2 Delivery O2 Flow Rate FiO2 12/12/16 18:00 86 12/12/16 16:00 98.1 86 22 167/109 99 12/12/16 16:00 86 12/12/16 14:00 86 12/12/16 12:00 81 12/12/16 12:00 98.2 81 18 165/77 99 12/12/16 10:00 78 12/12/16 09:07 96 12/12/16 08:00 88 12/12/16 08:00 98.0 88 20 167/79 100 12/12/16 06:00 82 12/12/16 04:00 98.4 82 170/86 100 12/12/16 04:00 82 12/12/16 02:00 82 12/12/16 01:08 100 30 12/12/16 00:00 85 12/12/16 00:00 98.5 85 168/81 100 12/11/16 23:45 100 30 12/11/16 22:00 84 12/11/16 21:05 96 21 12/11/16 20:00 98.6 89 164/82 99 12/11/16 20:00 89 -: 12/12/16 0505 12/12/16 0505 Physical Exam General Appearance: No Acute Distress, Comfortable Eyes Eye Exam: Pupils Equal Throat Throat Exam: Oral Mucosa [place] & Moist Neck Neck Exam: Neck Supple Pulmonary Resp Exam: No Distress, Rhonchi, Decreased Bases, Diminished Breath Sounds Cardiology CV Exam: Regular, Normal Sinus Rhythm Gastrointestinal/Abdomen GI Exam: Soft, Non-Tender, Bowel Sounds Present Extremeties Extremities Exam: Moderate Edema Neurologic Neuro Exam: Alert, Awake Psychiatric Psych Exam: Appropriate Responses Assessment/Plan Assessment Summary: WILLIE/Acute Renal Failure, CHF, CKD Stage IV Problem List: (1) NSTEMI (non-ST elevated myocardial infarction) (2) Diabetes mellitus (3) Asthma (4) Shortness of breath (5) Leg edema (6) Hypertension (7) CKD (chronic kidney disease) stage 4, GFR 15-29 ml/min (8) ARF (acute renal failure) Plan Patient has been non oliguric, Creatinine is still above 7. K is normal, Hco3 is normal now. Has proteinuria, serology pending. Added Phoslo as Po4 is elevated and calcitriol as Calcium is low. BP is still elevated Clonidine increased. Continue antibiotics and steroid. HD started after he develop more SOB, tolerated well. Cardiology following. Problem Qualifiers (1) Diabetes mellitus: (2) ARF (acute renal failure): Qualified Code: N17.9 - Acute renal failure, unspecified acute renal failure type Zoey Carbone MD Dec 12, 2016 18:17 Zoey Carbone MD Dec 12, 2016 18:17
[2016-12-12] MEDS: LABETALOL HCL 100 MG/20 ML VIAL IV PRN ×2 (20:06→21:47)
[2016-12-12] MEDS: methylPREDNISolone SOD SUCC 40 MG/1 ML VIAL IV PUSH SCH (20:06)
[2016-12-12 23:53] LABS: APTT (PATIENT) 42.2 SEC (24.3-30.1)
[2016-12-13] VITALS (16 sets, daily range): BP systolic 148–170; BP diastolic 71–80; PULSE 72–84; RESP 10–22; TEMP 97.3–98; O2SAT 99–100
[2016-12-13] MEDS: CHLORHEXIDINE GLUCONATE 2 % 1 PACK (2 CLOTHS) TOP SCH (02:04)
[2016-12-13] MEDS: HEPARIN-D5W 25,000 U/250 ML 250 ML IV SCH ×2 (02:44→23:54)
[2016-12-13] MEDS: RESP: ALBUTEROL 2.5 MG/IPRATROPIUM 0.5 MG NEB (SCH) INH ×4 (04:05→20:26)
[2016-12-13] MEDS: INSULIN NovoLIN REGULAR SUPPLEMENTAL SCALE SQ SCH ×4 (05:00→23:52)
--- NOTE | 2016-12-13 05:59 | RADRPT ---
EXAM DATE/TIME: 12/13/2016 04:54 [facility] COMPARISON: CHEST SINGLE AP, December 12, 2016, 14:42. INDICATIONS : Shortness of breath. MEDICAL HISTORY : Aneurysm, intracranial. Hypertension Chronic obstructive pulmonary. SURGICAL HISTORY : Appendectomy. Cerebral aneurysm repair. ENCOUNTER: Subsequent ACUITY: 1 week PAIN SCORE: 0/10 LOCATION: Bilateral chest FINDINGS: Right internal jugular catheter tip at the caval atrial junction. Left internal jugular catheter tip at the origin of the superior vena cava. Gastric tube traverses the field of view. Shunt tubing tr averses the left chest. Persistent consolidation in the left lower lung with loss of delineation of the medial hemidiaphragm. The right lung remains clear. Heart is stable in size. Moderate degenera tive changes in the thoracic spine. CONCLUSION: Persistent lobar consolidation left lower lung. Jose Roberto Cheema MD on December 13, 2016 at 5:57 Board Certified Radiologist. This report was verified electronically.
[2016-12-13 06:03] LABS: AUTOMATED NEUTROPHIL # 9.9 TH/MM3 (1.8-7.7); BASOPHIL % 0.1 % (0.0-2.0); HEMATOCRIT 26.5 % (39.0-51.0); LYMPH % 3.3 % (9.0-44.0); LYMPHOCYTE # 0.4 TH/MM3 (1.0-4.8); MEAN CELL VOLUME 87.3 FL (80.0-100.0); MEAN CORPUSCULAR HEMOGLOBIN 29.8 PG (27.0-34.0); MEAN CORPUSCULAR HGB CONC 34.1 % (32.0-36.0); MONO % 6.1 % (0.0-8.0); NEUT % 90.5 % (16.0-70.0); PLATELET COUNT 238 TH/MM3 (150-450); RED BLOOD COUNT 3.04 MIL/MM3 (4.50-5.90); RED CELL DISTRIBUTION WIDTH 14.9 % (11.6-17.2)
[2016-12-13 06:07] LABS: HEMO FLAGS AUTO DIFF
[2016-12-13 06:15] LABS: APTT (PATIENT) 39.3 SEC (24.3-30.1)
[2016-12-13 06:49] LABS: ALKALINE PHOSPHATASE 69 U/L (45-117); ALT (GPT) 21 U/L (12-78); ANION GAP 11 MEQ/L (5-15); AST (GOT) 11 U/L (15-37); BICARBONATE 24.6 MEQ/L (21.0-32.0); BLOOD UREA NITROGEN 108 MG/DL (7-18); CHLORIDE 103 MEQ/L (98-107); GLOMERULAR FILTRATION RATE 9 ML/MIN (>89); POTASSIUM 4.2 MEQ/L (3.5-5.1); SODIUM (NA) 139 MEQ/L (136-145); TOTAL BILIRUBIN ADULT 0.3 MG/DL (0.2-1.0)
[2016-12-13] MEDS: CHLORHEXIDINE 0.12% (ORAL KIT) 15 ML CUP MT SCH ×2 (08:00→20:00)
[2016-12-13] MEDS: BUDESONIDE-FORMOTEROL 160/4.5 MCG INHALER INH SCH ×2 (08:18→21:00)
[2016-12-13] MEDS: TIOTROPIUM BROMIDE 18 MCG INH INH SCH (08:18)
[2016-12-13] MEDS: CALCITRIOL 0.25 MCG CAP PO SCH (08:19)
[2016-12-13] MEDS: CALCIUM ACETATE 667 MG CAP PO SCH ×3 (08:19→17:17)
[2016-12-13] MEDS: CARVEDILOL 6.25 MG TAB PO SCH ×2 (08:19→21:13)
[2016-12-13] MEDS: cefTRIAXone INJ 1,000 MG in SODIUM CHLORIDE 0.9% INJ 100 ML IV SCH (08:20)
[2016-12-13] MEDS: AZITHROMYCIN INJ 500 MG in SODIUM CHLOR 0.9% 250 ML INJ 250 ML IV SCH (08:20)
[2016-12-13] MEDS: methylPREDNISolone SOD SUCC 40 MG/1 ML VIAL IV PUSH SCH ×2 (08:21→21:13)
[2016-12-13] MEDS: SENNOSIDES 8.6 MG TAB PO PRN (08:21)
[2016-12-13] MEDS: PANTOPRAZOLE SODIUM 40 MG VIAL IV SCH (08:21)
[2016-12-13] MEDS: cloNIDine HCL 0.3 MG TAB PO SCH ×3 (08:21→23:57)
[2016-12-13] MEDS: LACTULOSE SYRUP 20 GM/30 ML CUP PO PRN (08:21)
[2016-12-13] MEDS: ASPIRIN 81 MG CHEW TAB CHEW SCH (08:21)
[2016-12-13] MEDS: DOCUSATE SODIUM 50 MG/SENNA 8.6 MG TAB PO SCH ×2 (08:21→21:13)
[2016-12-13] MEDS: SODIUM CHLORIDE 0.9% FLUSH 10 ML FLUSH IV FLUSH SCH ×2 (08:22→21:13)
[2016-12-13] MEDS: SODIUM CHLORIDE 0.9% FLUSH 10 ML FLUSH IVF SCH (08:22)
[2016-12-13 09:35] LABS: BANDS 1 % (0-6); METAMYELOCYTES 3 % (0-1); MYELOCYTES 2 % (0-0); NEUTROPHIL # MANUAL DIFF 10.7 TH/MM3 (1.8-7.7); POLYS (SEG NEUTROPHILS) 91 % (16-70); WBC DIFF SAMPLE 100
[2016-12-13 09:37] LABS: BURR CELLS 1+ (NORMAL)
[2016-12-13 09:38] LABS: PLATELET ESTIMATE SMEAR NORMAL (NORMAL); PLATELET MORPHOLOGY NORMAL (NORMAL); SCAN/DIFF FINAL DIFF MANUAL
[2016-12-13 11:17] LABS: APTT (PATIENT) 43.6 SEC (24.3-30.1)
--- NOTE | 2016-12-13 11:46 | PD.TRANSFR ---
Transfer Summary Admission Date Dec 07, 2016 at 00:45 Admitting Diagnosis sepsis, NSTEMI, pneumonia, renal failure, respiratory distress Diagnoses: (1) Respiratory failure Diagnosis: Principal (2) Sepsis Diagnosis: Principal (3) Pneumonia Diagnosis: Principal (4) left atrial thrombus Diagnosis: Principal (5) NSTEMI (non-ST elevated myocardial infarction) Diagnosis: Principal (6) ARF (acute renal failure) Diagnosis: Principal (7) Diabetes mellitus Diagnosis: Secondary (8) Morbid obesity Diagnosis: Secondary (9) Severe chronic obstructive pulmonary disease Diagnosis: Secondary (10) CKD (chronic kidney disease) stage 4, GFR 15-29 ml/min Diagnosis: Secondary Transfer Summary/Subjective This patient is bulgarian speaking only, and his family was not available to assist in interpretation. In addition, he is in respiratory distress on my evaluation, and additional history is unobtainable from the patient. Per report , this is a 66yM with a history of CHF and prior NSTEMI who presented for shortness of breath. He was hypoxic in ER and placed on BiPAP. He was febrile in the ER. His laboratory data is significant for a leukocytosis, lactic acidosis, Cr 7.7, troponin of 2. SUBJ 12/08: Patient was intubated after known yesterday for worsening respiratory failure. Currently remains intubated sedated. His chest x-ray shows worsening left-sided effusion/infiltrate. I have requested STAT CT chest to better evaluate infiltrate. Hemoglobin dropped from 7.7-6.6. Received 2 units PRBC 12/09: Remains intubated sedated with fentanyl and Precedex. Wakes up easily and nods his head. Hemoglobin stable at 8. No evidence of active bleeding. We 'll resume heparin. Chest x-ray shows persistent left lower lobe infiltrate effusion. Attempt CPAP trial again today. Creatinine remains elevated but slightly improved from 8-7.7 UO 1.2 L in 24 hours 12/10: Patient was extubated yesterday tolerating well respiratory clifford. Good oxygen saturation. Chest x-ray shows improving infiltrates. Urine output 2.2L in 24 hours. Creatinine remains elevated at 7.7. No acute indication for hemodialysis 12/11: Oxygen saturation about 95% on room air, has bilateral scattered wheezing. Chest x-ray shows increased bilateral basilar infiltrates/effusion. BUN/creatinine essentially same. UO 2.2 L in 24 hours. Give Bumex 2 mg IVP x1. Continues to fail swallow eval, place NGT 12/12: Received 5 mg total Bumex yesterday. Urine output 3.5 L but BUN/ creatinine remains elevated (120/7). Discussed with Dr. Kelsey, will start hemodialysis today. I'll check an aPTT after holding heparin 4 hours. NG tube placed yesterday into feeds started due to continued aspiration on swallow eval 12/13: Started on hemodialysis yesterday liter fluid removed. Repeat hemodialysis today. BUN/creatinine slightly improved but still remains high. UO 1.1 L in 24 hours Objective Vital Signs Date Time Temp Pulse Resp B/P Pulse Ox O2 Delivery O2 Flow Rate FiO2 12/13/16 10:00 80 12/13/16 09:56 18 155/76 100 12/13/16 08:00 97.9 12/13/16 07:37 Nasal Cannula 1.00 12/12/16 01:08 30 Intake and Output 12/12/16 12/12/16 12/13/16 08:00 16:00 00:00 Intake Total 390 ml 517 ml 140 ml Output Total 1000 ml 775 ml 8200 ml Balance -610 ml -258 ml -8060 ml Result Diagram: 12/13/16 0430 12/13/16 0430 Imaging Last Impressions Chest X-Ray 12/06/16 1124 Signed Impressions: Service Date/Time: Tuesday, December 06, 2016 23:29 - CONCLUSION: Bilateral lower lobe consolidation. Sarabjit Tinsley MD Objective Remarks GENERAL: Obese middle-aged male, in mild discomfort HEENT: Normocephalic. Atraumatic. Pupils equal, round, reactive, conjugate. NECK: Trachea is midline. There is no JVD. CHEST: Air Entry bilaterally equal. Mild wheezes anteriorly. Diminished breath sounds at the bases CARDIOVASCULAR: S1-S2 normal no murmurs, regular rhythm ABDOMEN: Soft, nontender, nondistended. No guarding. MUSCULOSKELETAL: Pulses 2+. No peripheral edema. NEUROLOGICAL: Alert awake. Bulgarian speaking. Follows commands, non focal exam Urinary Catheter: Yes Assessment to: Continue Vascular Central Line Catheter: Yes Assessment to: Continue A/P Assessment and Plan Assessment: 66yM with acute bibasilar community acquired pneumonia, sepsis, acute kidney injury, acute hypoxic respiratory failure, multi-organ system failure, NSTEMI. critically ill, but improving Plan by systems: Neurologic: Tylenol as needed for pain or fever --As needed Morphine for pain, anxiety Respiratory: Acute hypoxic respiratory failure-resolved COPD exacerbation Bilateral lower lobe pneumonias/community acquired Bilateral small effusions Extubated 12/09, tolerating well Solu-Medrol 40 mg q12 Antibiotics as below Nebs, EzPAP, Acapella --CT chest 12/08: Dense bibasilar consolidation left more than right, moderate left effusion --Broad-spectrum antibiotics as below --Symbicort and Spiriva Cardiovascular: NSTEMI LA thrombus Severe sepsis -- Continue heparin drip, start on coumadin with pharmacy consult -- ASA 81 mg daily. Coreg 6.25 mg BID. Norvasc 10 mg daily. Clonidine to 0.3 mg po TID -- Cardiology -Dr Chapin. Echo Mildly dilated left ventricle. LVEF 45-50%. There is distinct regional WMA with akinetic apex and possibly clot at the apex. - Biatrial moderate dilatation -- Repeat echo study with contrast/Definity to better asses apex-defer to cardiology Renal: New severe acute kidney injury Chronic kidney disease -- Nephrology started HD 12/12/16 with 8 L removed. -- BUN/creatinine remains high but improving with HD -- Renal ultrasound-normal -- Young with q1h uop, Strict I/Os FEN/GI: Daily BMP Swallow eval failed. NGT with tube feeds Heme/ID: Community acquired bilateral lower lobe pneumonia Severe sepsis Continue Rocephin and azithromycin [place] culture follow up-neg to date Daily CBC -- Received 2 units PRBC 12/08 transfusion for hemoglobin drop to 6.6 from 7.7. -- Hb stable now Endocrine: Type 2 diabetes -- SSI Prophylaxis: GI Prophylaxis Protonix DVT Prophylaxis -- SCDs Heparin drip. Started on Coumadin, pharmacy to dose Lines: Central line placed by Dr. Robertson 12/07/16-DC today --JOSUE Garg placed 12/12/16 Dispo: Level 3 Patient stable from respiratory standpoint. BUN creat slightly improved. Started hemodialysis HD yesterday, will consult hospitalist to assume care tomorrow 12/14/16 Wyatt Chance MD Dec 13, 2016 11:46
[2016-12-13] MEDS: ARTIFICIAL TEARS OPTH SOLN 15 ML BTL EACH EYE SCH ×2 (12:11→17:17)
--- NOTE | 2016-12-13 13:20 | PD.CARD.PN ---
Subjective Subjective Remarks No CP or SOB, tolerated dialysis, 4 l removed Objective Medications Current Medications Medications (Trade) Dose Ordered Sig/Abby Route Start Time Stop Time Status Last Admin (D50w (Vial) Inj) 25 ml UNSCH PRN IV PUSH 12/07/16 00:45 (NovoLIN R SUPPLEMENTAL SCALE) 1 Q6HR SQ 12/07/16 06:00 12/13/16 11:37 Ondansetron HCl 4 mg 4 mg Q6H PRN IV 12/07/16 00:45 Azithromycin 500 mg/Sodium Chloride 250 ml @ 250 mls/hr Q24H IV 12/08/16 09:00 12/15/16 08:59 12/13/16 08:20 Ceftriaxone Sodium 1000 mg/ Sodium Chloride 100 ml @ 200 mls/hr Q24H IV 12/08/16 09:00 12/15/16 08:59 12/13/16 08:20 (Heparin-D5W Inj) 250 ml @ 0 mls/hr TITRATE IV 12/07/16 01:45 12/13/16 02:44 (NS Flush) DAILY IVF 12/07/16 15:30 12/13/16 08:22 (NS Flush) UNSCH PRN IVF 12/07/16 15:30 (Peridex 0.12% Liq) 15 ml BID@08,20 MT 12/07/16 20:00 12/12/16 20:00 (NS Flush) 2 ml UNSCH PRN IV FLUSH 12/07/16 15:30 12/12/16 11:32 (NS Flush) 2 ml BID IV FLUSH 12/07/16 21:00 12/13/16 08:22 (Tylenol) 650 mg Q6H PRN PO 12/07/16 15:30 (Protonix Inj) 40 mg DAILY IV 12/08/16 09:00 12/13/16 08:21 (Tears Naturale Opth Soln) 1 drop TID EACH EYE 12/07/16 18:00 12/13/16 12:11 Miscellaneous Information 1 Q361D XX 12/07/16 15:30 (Chlorhexidine 2% Cloth) Taper DAILY@04 TOP 12/08/16 04:00 12/04/17 03:59 12/13/16 02:04 (Chlorhexidine 2% Cloth) 3 pack UNSCH PRN TOP 12/07/16 15:30 (Sara-Colace) 1 tab BID PO 12/07/16 21:00 12/13/16 08:21 (Milk Of Magnesia Liq) 30 ml Q12H PRN PO 12/07/16 15:30 (Senokot) 17.2 mg Q12H PRN PO 12/07/16 15:30 12/13/16 08:21 (Dulcolax Supp) 10 mg DAILY PRN RECTAL 12/07/16 15:30 (Lactulose Liq) 30 ml DAILY PRN PO 12/07/16 15:30 12/13/16 08:21 (Aspirin Chew) 81 mg DAILY CHEW 12/08/16 12:00 12/13/16 08:21 (Trandate Inj) 20 mg Q2H PRN IV 12/10/16 00:15 12/12/16 21:47 (Morphine Inj) 2 mg Q3H PRN IV PUSH 12/10/16 09:15 12/12/16 14:04 (Coreg) 6.25 mg Q12HR PO 12/10/16 10:00 12/13/16 08:19 (Phoslo) 1,334 mg TID PO 12/10/16 13:00 12/13/16 08:19 (Rocaltrol) 0.5 mcg DAILY PO 12/10/16 12:45 12/13/16 08:19 (Symbicort 160-4.5 Inh) 1 puff Q12HR INH 12/11/16 12:00 12/13/16 08:18 (Spiriva Inh) 18 mcg DAILY INH 12/11/16 12:00 12/13/16 08:18 (Norvasc) 10 mg DAILY PO 12/11/16 15:15 12/13/16 08:21 (Apresoline Inj) 20 mg Q4H PRN IV PUSH 12/11/16 15:15 12/12/16 18:41 (Catapres) 0.3 mg Q8H PO 12/12/16 08:00 12/13/16 08:21 Methylprednisolone Sodium Succinate 40 mg 40 mg Q12H IV PUSH 12/12/16 20:00 12/13/16 08:21 (NS 1000 ml Inj) 1,000 ml @ 0 mls/hr Q0M PRN IV 12/12/16 12:11 Heparin Sodium (Porcine) 8000 units 8,000 units UNSCH PRN IVF 12/12/16 12:15 Sodium Chloride 1,000 ml @ 200 mls/hr Q5H PRN IV 12/12/16 12:11 (NS 1000 ml Inj) 1,000 ml @ 0 mls/hr Q0M PRN IV 12/12/16 12:11 12/12/16 17:04 (Mannitol Inj) 12.5 gm UNSCH PRN IV 12/12/16 12:15 (Albumin 25% Inj) 25 gm UNSCH PRN IV 12/12/16 12:15 (NS Flush) 5 ml UNSCH PRN IV FLUSH 12/12/16 12:15 (Heparin Inj) UNSCH PRN .XX 12/12/16 12:15 12/12/16 17:03 (Gentamicin (Dialysis) Inj) 20 mg UNSCH PRN IV 12/12/16 12:15 12/12/16 17:03 (Zofran Inj) 4 mg UNSCH PRN IV 12/12/16 12:15 (Tylenol) 650 mg UNSCH PRN PO 12/12/16 12:15 (Benadryl) 25 mg UNSCH PRN PO 12/12/16 12:15 (Nitrostat Sl) 0.4 mg UNSCH PRN SL 12/12/16 12:15 (Catapres) 0.1 mg UNSCH PRN PO 12/12/16 12:15 (Epogen Inj) 10,000 units UNSCH PRN IV 12/12/16 12:15 (Gelfoam 12 Mm/7 Mm Top) 1 foam UNSCH PRN TOP 12/12/16 12:15 Warfarin Sodium 4 mg 4 mg DAILY@16 PO 12/13/16 16:00 (Coumadin Consult Pharmacy) 0 ml @ 0 mls/hr UNSCH OTHER 12/13/16 12:00 Vital Signs / I&O Vital Signs Date Time Temp Pulse Resp B/P Pulse Ox O2 Delivery O2 Flow Rate FiO2 12/13/16 12:00 79 12/13/16 12:00 98.0 79 18 148/71 100 12/13/16 10:00 80 12/13/16 09:56 79 18 155/76 100 12/13/16 08:00 97.9 84 18 170/80 100 12/13/16 08:00 83 12/13/16 07:37 100 Nasal Cannula 1.00 12/13/16 06:00 84 12/13/16 04:06 99 Nasal Cannula 2.00 12/13/16 04:00 97.7 81 154/74 100 12/13/16 04:00 81 12/13/16 02:00 79 12/13/16 00:00 81 12/13/16 00:00 97.3 81 163/74 100 12/12/16 22:00 80 12/12/16 21:46 100 Nasal Cannula 1.00 12/12/16 20:00 90 12/12/16 20:00 97.7 90 155/72 100 12/12/16 18:00 86 12/12/16 16:00 98.1 86 22 167/109 99 12/12/16 16:00 86 12/12/16 14:00 86 I/O 12/12/16 12/12/16 12/12/16 12/13/16 12/13/16 12/13/16 06:59 14:59 22:59 06:59 14:59 22:59 Intake Total 390 ml 517 ml 140 ml 233 ml Output Total 1000 ml 775 ml 8200 ml 150 ml Balance -610 ml -258 ml -8060 ml 83 ml Intake Oral 0 ml 0 ml IV Total 390 ml 357 ml 84 ml 96 ml Tube Feeding 56 ml 137 ml Tube Irrigant 160 ml Output Urine Total 1000 ml 775 ml 200 ml 150 ml Hemodialysis 8000 ml # Bowel Movements 0 0 0 Physical Exam GENERAL: In NAD SKIN: Warm and dry. HEAD: Normocephalic. EYES: No scleral icterus. No injection or drainage. NECK: Supple, trachea midline. No JVD or lymphadenopathy. CARDIOVASCULAR: Regular rate and rhythm, mild tachycardia, no murmurs, gallops, or rubs. RESPIRATORY: Breath sounds equal bilaterally. No accessory muscle use. GASTROINTESTINAL: Abdomen soft, non-tender, nondistended. MUSCULOSKELETAL: No cyanosis, mild edema, dry, scaly skin Laboratory Laboratory Tests Test 12/12/16 12/13/16 12/13/16 22:45 04:30 10:20 Activated Partial 42.2 SEC 39.3 SEC 43.6 SEC Thromboplast Time White Blood Count 11.0 TH/MM3 Red Blood Count 3.04 MIL/MM3 Hemoglobin 9.1 GM/DL Hematocrit 26.5 % Mean Corpuscular Volume 87.3 FL Mean Corpuscular Hemoglobin 29.8 PG Mean Corpuscular Hemoglobin 34.1 % Concent Red Cell Distribution Width 14.9 % Platelet Count 238 TH/MM3 Mean Platelet Volume 9.3 FL Neutrophils (%) (Auto) 90.5 % Lymphocytes (%) (Auto) 3.3 % Monocytes (%) (Auto) 6.1 % Eosinophils (%) (Auto) 0.0 % Basophils (%) (Auto) 0.1 % Neutrophils # (Auto) 9.9 TH/MM3 Lymphocytes # (Auto) 0.4 TH/MM3 Monocytes # (Auto) 0.7 TH/MM3 Eosinophils # (Auto) 0.0 TH/MM3 Basophils # (Auto) 0.0 TH/MM3 CBC Comment AUTO DIFF Differential Total Cells 100 Counted Neutrophils % (Manual) 91 % Band Neutrophils % 1 % Lymphocytes % 1 % Monocytes % 2 % Neutrophils # (Manual) 10.7 TH/MM3 Metamyelocytes 3 % Myelocytes 2 % Differential Comment FINAL DIFF MANUAL Platelet Estimate NORMAL Platelet Morphology Comment NORMAL [place] Cells 1+ Sodium Level 139 MEQ/L Potassium Level 4.2 MEQ/L Chloride Level 103 MEQ/L Carbon Dioxide Level 24.6 MEQ/L Anion Gap 11 MEQ/L Blood Urea Nitrogen 108 MG/DL Creatinine 6.24 MG/DL Estimat Glomerular Filtration 9 ML/MIN Rate Random Glucose 248 MG/DL Calcium Level 7.5 MG/DL Total Bilirubin 0.3 MG/DL Aspartate Amino Transf 11 U/L (AST/SGOT) Alanine Aminotransferase 21 U/L (ALT/SGPT) Alkaline Phosphatase 69 U/L Total Protein 6.0 GM/DL Albumin 2.4 GM/DL Imaging Last Impressions Chest X-Ray 12/13/16 0600 Signed Impressions: Service Date/Time: Tuesday, December 13, 2016 04:54 - CONCLUSION: Persistent lobar consolidation left lower lung. Jose Roberto Cheema MD Chest CT 12/08/16 0000 Signed Impressions: Service Date/Time: Thursday, December 08, 2016 14:02 - CONCLUSION: 1. Bilateral lower lobe consolidating airspace disease. 2. Small to moderate bilateral pleural effusions; larger on the left. 3. Cardiomegaly. 4. Endotracheal and nasogastric tubes in good position. Tutu Christianson MD Renal Ultrasound 12/07/16 0000 Signed Impressions: Service Date/Time: November 07:54 - CONCLUSION: Unremarkable and stable bilateral renal ultrasound. No evidence of hydronephrosis. Baron Medrano MD Assessment and Plan Problem List: (1) Respiratory failure (2) Sepsis (3) Pneumonia (4) ARF (acute renal failure) (5) Elevated troponin (6) Diabetes mellitus (7) Hypertension (8) Morbid obesity (9) Anemia Assessment and Plan No new cardiac issues. No cardiac complaints. Titrate tx for severe HTN. Obtain echo w contrast. Continue tx for pneumonia. Needs evaluation for anemia, since if the LV thrombus is confirmed, he will need full oral anticoagulation. Continue aggressive risk factor modification. Increase activity. Continue dialysis. Transfer to floor. Problem Qualifiers (1) Sepsis: Qualified Code: A41.9 - Sepsis, due to unspecified organism (2) Pneumonia: Qualified Code: J18.9 - Pneumonia of both lower lobes due to infectious organism (3) ARF (acute renal failure): Qualified Code: N17.9 - Acute renal failure, unspecified acute renal failure type (4) Diabetes mellitus: (5) Anemia: Qualified Code: D64.89 - Anemia due to other cause, not classified Mark Chapin MD Dec 13, 2016 13:20
[2016-12-13 13:55] LABS: MYELOPEROXIDASE LESS THAN 1.0 AI (<1.0); PROTEINASE-3 LESS THAN 1.0 AI (<1.0)
[2016-12-13] MEDS: HEPARIN SODIUM - IV 10,000 UNITS/10 ML VIAL PRN (14:53)
[2016-12-13] MEDS: SODIUM CHLOR 0.9% 1000 ML INJ 1,000 ML IV PRN (14:53)
[2016-12-13] MEDS: GENTAMICIN SULFATE (DIALYSIS USE ONLY) 20 MG/2 ML VIAL IV PRN (14:54)
[2016-12-13 17:05] LABS: INTERNATIONAL NORMALIZED RATIO 1.1 RATIO; PROTHROMBIN TIME - PATIENT 11.7 SEC (9.8-11.6)
[2016-12-13] MEDS: LABETALOL HCL 100 MG/20 ML VIAL IV PRN (17:17)
[2016-12-13] MEDS: WARFARIN SOD 4 MG TAB PO SCH (17:17)
[2016-12-13 18:23] LABS: APTT (PATIENT) 83.2 SEC (24.3-30.1)
[2016-12-14] VITALS (11 sets, daily range): BP systolic 143–180; BP diastolic 72–91; PULSE 62–82; RESP 10–18; TEMP 97.7–98.8; O2SAT 98–100
[2016-12-14] MEDS: RESP: ALBUTEROL 2.5 MG/IPRATROPIUM 0.5 MG NEB (SCH) INH (03:30)
[2016-12-14 03:33] LABS: APTT (PATIENT) 43.3 SEC (24.3-30.1)
[2016-12-14] MEDS: CHLORHEXIDINE GLUCONATE 2 % 1 PACK (2 CLOTHS) TOP SCH (04:00)
[2016-12-14] MEDS: INSULIN NovoLIN REGULAR SUPPLEMENTAL SCALE SQ SCH ×4 (04:22→23:53)
[2016-12-14 06:23] LABS: AUTOMATED NEUTROPHIL # 8.1 TH/MM3 (1.8-7.7); BASOPHIL % 0.1 % (0.0-2.0); HEMATOCRIT 26.4 % (39.0-51.0); LYMPH % 4.4 % (9.0-44.0); LYMPHOCYTE # 0.4 TH/MM3 (1.0-4.8); MEAN CELL VOLUME 89.7 FL (80.0-100.0); MEAN CORPUSCULAR HEMOGLOBIN 30.6 PG (27.0-34.0); MEAN CORPUSCULAR HGB CONC 34.2 % (32.0-36.0); MONO % 6.1 % (0.0-8.0); NEUT % 89.4 % (16.0-70.0); PLATELET COUNT 221 TH/MM3 (150-450); RED BLOOD COUNT 2.94 MIL/MM3 (4.50-5.90); WHITE BLOOD COUNT 9.1 TH/MM3 (4.0-11.0)
[2016-12-14 06:24] LABS: HEMO FLAGS AUTO DIFF
[2016-12-14 06:29] LABS: APTT (PATIENT) 40.6 SEC (24.3-30.1)
[2016-12-14 06:58] LABS: ALKALINE PHOSPHATASE 103 U/L (45-117); ALT (GPT) 23 U/L (12-78); ANION GAP 9 MEQ/L (5-15); AST (GOT) 13 U/L (15-37); BICARBONATE 28.4 MEQ/L (21.0-32.0); BLOOD UREA NITROGEN 90 MG/DL (7-18); CHLORIDE 101 MEQ/L (98-107); GLOMERULAR FILTRATION RATE 12 ML/MIN (>89); MAGNESIUM 2.4 MG/DL (1.5-2.5); POTASSIUM 4.4 MEQ/L (3.5-5.1); SODIUM (NA) 138 MEQ/L (136-145); TOTAL BILIRUBIN ADULT 0.2 MG/DL (0.2-1.0)
[2016-12-14] MEDS: CHLORHEXIDINE 0.12% (ORAL KIT) 15 ML CUP MT SCH ×2 (08:00→20:00)
[2016-12-14] MEDS: LABETALOL HCL 100 MG/20 ML VIAL IV PRN (08:05)
[2016-12-14] MEDS: cloNIDine HCL 0.3 MG TAB PO SCH ×3 (08:16→23:54)
[2016-12-14] MEDS: ASPIRIN 81 MG CHEW TAB CHEW SCH (08:16)
[2016-12-14] MEDS: DOCUSATE SODIUM 50 MG/SENNA 8.6 MG TAB PO SCH ×2 (08:16→21:56)
[2016-12-14] MEDS: CARVEDILOL 6.25 MG TAB PO SCH ×2 (08:16→21:56)
[2016-12-14] MEDS: methylPREDNISolone SOD SUCC 40 MG/1 ML VIAL IV PUSH SCH ×2 (08:17→21:57)
[2016-12-14] MEDS: PANTOPRAZOLE SODIUM 40 MG VIAL IV SCH (08:17)
[2016-12-14] MEDS: ARTIFICIAL TEARS OPTH SOLN 15 ML BTL EACH EYE SCH ×3 (08:17→18:00)
[2016-12-14] MEDS: AZITHROMYCIN INJ 500 MG in SODIUM CHLOR 0.9% 250 ML INJ 250 ML IV SCH (08:20)
[2016-12-14] MEDS: SODIUM CHLORIDE 0.9% FLUSH 10 ML FLUSH IV FLUSH SCH ×2 (08:20→21:57)
[2016-12-14] MEDS: cefTRIAXone INJ 1,000 MG in SODIUM CHLORIDE 0.9% INJ 100 ML IV SCH (08:20)
[2016-12-14] MEDS: SODIUM CHLORIDE 0.9% FLUSH 10 ML FLUSH IVF SCH (08:20)
[2016-12-14] MEDS: CALCITRIOL 0.25 MCG CAP PO SCH (08:21)
[2016-12-14] MEDS: CALCIUM ACETATE 667 MG CAP PO SCH ×3 (08:21→18:55)
[2016-12-14] MEDS: TIOTROPIUM BROMIDE 18 MCG INH INH SCH (08:24)
[2016-12-14 08:27] LABS: BANDS 1 % (0-6); METAMYELOCYTES 1 % (0-1); MYELOCYTES 3 % (0-0); NEUTROPHIL # MANUAL DIFF 8.4 TH/MM3 (1.8-7.7); POLYS (SEG NEUTROPHILS) 87 % (16-70); WBC DIFF SAMPLE 100
[2016-12-14 08:28] LABS: PLATELET ESTIMATE SMEAR NORMAL (NORMAL); PLATELET MORPHOLOGY NORMAL (NORMAL); SCAN/DIFF FINAL DIFF MANUAL
[2016-12-14] MEDS: BUDESONIDE-FORMOTEROL 160/4.5 MCG INHALER INH SCH ×2 (08:36→21:00)
--- NOTE | 2016-12-14 09:14 | HHI.NPPN ---
Subjective History of Present Illness 66-year-old male with past medical history of hypertension, diabetes mellitus, history of cerebrovascular accident with left-sided weakness, hyperlipidemia, bronchial asthma, chronic kidney disease who was admitted because of shortness of breath and chest pain. I was called to see the patient because of elevated BUN and creatinine. The patient was diagnosed here with non-ST elevation [place]. The patient has history of chronic kidney disease. Additional Remarks This is late entry, note for 12/13/16. Patient is alert, has mild SOB with cough, no chest pain, not eating well, clinically same. Objective Data Data 12/13/16 12/14/16 18:59 06:59 Intake Total 1352 ml Output Total 3000 ml 850 ml Balance -3000 ml 502 ml Intake Oral 0 ml IV Total 556 ml Tube Feeding 796 ml Output Urine Total 850 ml Hemodialysis 3000 ml # Bowel Movements 0 Vital Signs Date Time Temp Pulse Resp B/P Pulse Ox O2 Delivery O2 Flow Rate FiO2 12/14/16 06:00 80 12/14/16 04:00 78 12/14/16 04:00 97.8 78 11 166/79 99 12/14/16 02:00 77 12/14/16 00:00 98.8 80 11 168/84 100 12/14/16 00:00 80 12/13/16 22:00 76 12/13/16 20:26 100 Nasal Cannula 1.00 12/13/16 20:00 97.4 75 10 157/72 100 12/13/16 20:00 75 12/13/16 18:00 72 12/13/16 16:00 80 12/13/16 16:00 97.7 80 22 152/75 100 12/13/16 14:00 80 12/13/16 12:00 79 12/13/16 12:00 98.0 79 18 148/71 100 12/13/16 10:00 80 12/13/16 09:56 79 18 155/76 100 -: 12/14/16 0535 12/14/16 0535 Physical Exam General Appearance: No Acute Distress, Comfortable Eyes Eye Exam: Pupils Equal Throat Throat Exam: Oral Mucosa [place] & Moist Neck Neck Exam: Neck Supple Pulmonary Resp Exam: No Distress, Rhonchi, Decreased Bases, Diminished Breath Sounds Cardiology CV Exam: Regular, Normal Sinus Rhythm Gastrointestinal/Abdomen GI Exam: Soft, Non-Tender, Bowel Sounds Present Extremeties Extremities Exam: Moderate Edema Neurologic Neuro Exam: Alert, Awake Psychiatric Psych Exam: Appropriate Responses Assessment/Plan Assessment Summary: WILLIE/Acute Renal Failure, CHF, CKD Stage IV Problem List: (1) NSTEMI (non-ST elevated myocardial infarction) (2) Diabetes mellitus (3) Asthma (4) Shortness of breath (5) Leg edema (6) Hypertension (7) CKD (chronic kidney disease) stage 4, GFR 15-29 ml/min (8) ARF (acute renal failure) Plan Patient has been non oliguric, Creatinine is still above 7. K is normal, Hco3 is normal now. Follow urine out put and BMP. May will need HD if no improvement. Has proteinuria, serology pending. Added Phoslo as Po4 is elevated and calcitriol as Calcium is low. BP is still elevated , will follow. HD done again and 3 liters removed. Follow the urine out put and BMP, HD as needed. Problem Qualifiers (1) Diabetes mellitus: (2) ARF (acute renal failure): Qualified Code: N17.9 - Acute renal failure, unspecified acute renal failure type Zoey Carbone MD Dec 14, 2016 09:14
--- NOTE | 2016-12-14 10:05 | HHI.PR ---
Subjective Remarks Follow-up for respiratory failure, sepsis and questionable in NSTEMI When I asked patient if he's speaks [place] he stated no. When I asked him if he wanted a value advisor, he shook his head yes. Online value advisor used during this interview. Patient stated that he feels fatigued. She is asking if he can eat. He stated that he is hungry. Deny any type of pain. Denied any shortness of breathing or cough. On my way out of the patient room I d/w speech therapist and she stated that she is going to evaluate him ago with swallow eval. I told speech therapist if he can eat anything to let the nurse knows so the nurse can page me for the order. Objective Vitals Vital Signs Date Time Temp Pulse Resp B/P Pulse Ox O2 Delivery O2 Flow Rate FiO2 12/14/16 09:22 100 Nasal Cannula 1.00 12/14/16 08:00 82 12/14/16 06:00 80 12/14/16 04:00 78 12/14/16 04:00 97.8 78 11 166/79 99 12/14/16 02:00 77 12/14/16 00:00 98.8 80 11 168/84 100 12/14/16 00:00 80 12/13/16 22:00 76 12/13/16 20:26 100 Nasal Cannula 1.00 12/13/16 20:00 97.4 75 10 157/72 100 12/13/16 20:00 75 12/13/16 18:00 72 12/13/16 16:00 80 12/13/16 16:00 97.7 80 22 152/75 100 12/13/16 14:00 80 12/13/16 12:00 79 12/13/16 12:00 98.0 79 18 148/71 100 12/13/16 10:00 80 I/O 12/13/16 12/13/16 12/13/16 12/14/16 12/14/16 12/14/16 07:00 15:00 23:00 07:00 15:00 23:00 Intake Total 233 ml 471 ml 881 ml Output Total 150 ml 3000 ml 400 ml 450 ml Balance 83 ml -3000 ml 71 ml 431 ml Intake Oral 0 ml 0 ml 0 ml IV Total 96 ml 74 ml 482 ml Tube Feeding 137 ml 397 ml 399 ml Output Urine Total 150 ml 400 ml 450 ml Hemodialysis 3000 ml # Bowel Movements 0 0 0 Result Diagram: 12/14/1653412/14/16534 Objective Remarks GENERAL: Obese middle-aged male, in mild discomfort HEENT: Normocephalic. Atraumatic. Pupils equal, round, reactive, conjugate. NECK: Trachea is midline. There is no JVD. CHEST: Air Entry bilaterally equal. Mild wheezes anteriorly. Diminished breath sounds at the bases CARDIOVASCULAR: S1-S2 normal no murmurs, regular rhythm ABDOMEN: Soft, nontender, nondistended. No guarding. MUSCULOSKELETAL: Pulses 2+. No peripheral edema. NEUROLOGICAL: Alert awake. Indonesian speaking. Follows commands, non focal exam Medications and IVs Current Medications Sodium Chloride (NS Flush) 2 ml UNSCH PRN IVF FLUSH AFTER USING IV ACCESS Last administered on 12/07/16 08:58; Start 12/06/16 at 23:30; Stop 12/07/16 at 16:07 ; Status DC Furosemide (Lasix Inj) 40 mg ONCE ONCE IVP Last administered on 12/06/16 23:37 ; Start 12/06/16 at 23:30; Stop 12/06/16 at 23:31; Status DC Methylprednisolone Sodium Succinate (SoluMEDROL INJ) 125 mg ONCE ONCE IVP Last administered on 12/06/16 23:38; Start 12/06/16 at 23:30; Stop 12/06/16 at 23: 31; Status DC Albuterol/ Ipratropium 1 ampule 1 ampule Q15M INH Last administered on 23:40; Start 12/06/16 at 23:30; Stop 12/07/16 at 00:01; Status DC Ceftriaxone Sodium 1000 mg/ Sodium Chloride 100 ml @ 200 mls/hr ONCE ONCE IV Last administered on 12/07/16 00:08; Start 12/07/16 at 00:00; Stop 12/07/16 at 00:29; Status DC Azithromycin/ Sodium Chloride (Zithromax Inj/ NS 250 ml Inj) 250 ml @ 250 mls/ hr ONCE ONCE IV Last administered on 12/07/16 00:23; Start 12/07/16 at 00:00 ; Stop 12/07/16 at 00:59; Status DC Acetaminophen 650 mg 650 mg ONCE ONCE RECTAL Last administered on 12/07/16 00 :23; Start 12/07/16 at 00:15; Stop 12/07/16 at 00:16; Status DC Sodium Chloride 1,000 ml @ 125 mls/hr Q8H IV Last administered on 12/07/16 00 :23; Start 12/07/16 at 00:01; Stop 12/07/16 at 01:52; Status DC Sodium Chloride (NS 1000 ml Inj) 1,000 ml @ 999 mls/hr BOLUS ONCE IV Last administered on 12/07/16 00:42; Start 12/07/16 at 00:30; Stop 12/07/16 at 01:30 ; Status DC Dextrose (D50w (Vial) Inj) 25 ml UNSCH PRN IV PUSH HYPOGLYCEMIA-SEE COMMENTS; Start 12/07/16 at 00:45 Insulin Human Regular (NovoLIN R SUPPLEMENTAL SCALE) 1 Q6HR SQ Last administered on 12/14/16 04:22; Start 12/07/16 at 06:00 Albuterol/ Ipratropium (Duoneb Neb) 1 ampule Q6HR NEB INH Last administered on 12/14/16 03:30; Start 12/07/16 at 04:00; Stop 12/14/16 at 09:04; Status DC Albuterol/ Ipratropium (Duoneb Neb) 1 ampule Q2HR NEB PRN INH WHEEZING; Start 12/07/16 at 00:45; Stop 12/07/16 at 15:28; Status DC Ondansetron HCl (Zofran Inj) 4 mg Q6H PRN IV NAUSEA OR VOMITING; Start at 00:45 Miscellaneous Information 1 Q361D XX ; Start 12/07/16 at 00:45; Stop 12/09/16 at 12:49; Status DC Chlorhexidine Gluconate (Chlorhexidine 2% Cloth) 3 pack Taper DAILY@04 TOP Last administered on 12/09/16 04:00; Start 12/07/16 at 04:00; Stop 12/09/16 at 12:49; Status DC Chlorhexidine Gluconate 3 pack 3 pack UNSCH PRN TOP HYGIENIC CARE; Start at 00:45; Stop 12/09/16 at 12:50; Status DC Sodium Chloride (NS 1000 ml Inj) 1,000 ml @ 100 mls/hr Q10H IV Last administered on 12/07/16 11:45; Start 12/07/16 at 01:45; Stop 12/07/16 at 16:08 ; Status DC Methylprednisolone Sodium Succinate 60 mg 60 mg Q12HR IV PUSH Last administered on 12/12/16 07:53; Start 12/07/16 at 09:00; Stop 12/12/16 at 08:03 ; Status DC Azithromycin 500 mg/Sodium Chloride 250 ml @ 250 mls/hr Q24H IV Last administered on 12/14/16 08:20; Start 12/08/16 at 09:00; Stop 12/15/16 at 08:59 Ceftriaxone Sodium 1000 mg/ Sodium Chloride 100 ml @ 200 mls/hr Q24H IV Last administered on 12/14/16 08:20; Start 12/08/16 at 09:00; Stop 12/15/16 at 08:59 Heparin Sodium/ Dextrose (Heparin-D5W Inj) 250 ml @ 0 mls/hr TITRATE IV Last administered on 12/13/16 23:54; Start 12/07/16 at 01:45 Chlorhexidine Gluconate (Peridex 0.12% Liq) 15 ml BID@08,20 MT Last administered on 12/09/16 08:50; Start 12/07/16 at 20:00; Stop 12/09/16 at 12:50 ; Status DC Etomidate (Amidate Inj) 40 mg ONCE ONCE IV PUSH ; Start 12/07/16 at 14:45; Stop 12/07/16 at 14:46; Status Cancel Rocuronium [place] (Zemuron Inj) 100 mg BOLUS ONCE IV ; Start 12/07/16 at 14:45 ; Stop 12/07/16 at 14:46; Status Cancel Etomidate (Amidate Inj) 20 mg STK-MED ONCE .ROUTE ; Start 12/07/16 at 13:23; Stop 12/07/16 at 13:24; Status DC Rocuronium [place] (Zemuron Inj) 50 mg STK-MED ONCE .ROUTE ; Start 12/07/16 at 13:24; Stop 12/07/16 at 13:25; Status DC Rocuronium [place] 50 mg 50 mg STK-MED ONCE .ROUTE ; Start 12/07/16 at 13:41; Stop 12/07/16 at 13:42; Status DC Propofol (Diprivan 1000 Mg/100ml Inj) 100 ml @ As Directed STK-MED ONCE .ROUTE ; Start 12/07/16 at 13:43; Stop 12/07/16 at 13:44; Status DC Sodium Chloride (NS Flush) DAILY IVF Last administered on 12/13/16 08:22; Start 12/07/16 at 15:30 Sodium Chloride (NS Flush) UNSCH PRN IVF SEE PROTOCOL; Start 12/07/16 at 15:30 Chlorhexidine Gluconate 15 ml 15 ml BID@08,20 MT Last administered on 20:00; Start 12/07/16 at 20:00 Propofol 100 ml @ 0 mls/hr TITRATE IV Last administered on 12/08/16 17:52; Start 12/07/16 at 15:30; Stop 12/10/16 at 09:05; Status DC Fentanyl Citrate (fentaNYL DRIP) 250 ml @ 0 mls/hr TITRATE IV Last administered on 12/08/16 04:12; Start 12/07/16 at 15:30; Stop 12/10/16 at 09:05 ; Status DC Albuterol Sulfate 2.5 mg 2.5 mg Q2HR NEB PRN NEB DYSPNEA; Start 12/07/16 at 15: 30 Sodium Chloride (NS 1000 ml Inj) 1,000 ml @ 84 mls/hr [id number] IV ; Start at 15:28; Stop 12/07/16 at 16:31; Status DC Sodium Chloride (NS Flush) 2 ml UNSCH PRN IV FLUSH FLUSH AFTER USING IV ACCESS Last administered on 12/12/16 11:32; Start 12/07/16 at 15:30 Sodium Chloride (NS Flush) 2 ml BID IV FLUSH Last administered on 12/14/16 08: 20; Start 12/07/16 at 21:00 Acetaminophen (Tylenol) 650 mg Q6H PRN PO PAIN 1-10 AND/OR FEVER >101F; Start 12/07/16 at 15:30 Pantoprazole Sodium (Protonix Inj) 40 mg DAILY IV Last administered on 08:17; Start 12/08/16 at 09:00 Artificial Tears (Tears Naturale Opth Soln) 1 drop TID EACH EYE Last administered on 12/13/16 17:17; Start 12/07/16 at 18:00 Miscellaneous Information 1 Q361D XX ; Start 12/07/16 at 15:30 Chlorhexidine Gluconate (Chlorhexidine 2% Cloth) Taper DAILY@04 TOP Last administered on 12/14/16 04:00; Start 12/08/16 at 04:00; Stop 12/04/17 at 03:59 Chlorhexidine Gluconate (Chlorhexidine 2% Cloth) 3 pack UNSCH PRN TOP HYGIENIC CARE; Start 12/07/16 at 15:30 Senna/Docusate Sodium (Sara-Colace) 1 tab BID PO Last administered on 08:16; Start 12/07/16 at 21:00 Magnesium Hydroxide (Milk Of Magnesia Liq) 30 ml Q12H PRN PO MILD - MODERATE CONSTIPATION; Start 12/07/16 at 15:30 Sennosides (Senokot) 17.2 mg Q12H PRN PO MODERATE - SEVERE CONSTIPATION Last administered on 12/13/16 08:21; Start 12/07/16 at 15:30 Bisacodyl (Dulcolax Supp) 10 mg DAILY PRN RECTAL SEVERE CONSITIPATION; Start at 15:30 Lactulose (Lactulose Liq) 30 ml DAILY PRN PO SEVERE CONSITIPATION Last administered on 12/13/16 08:21; Start 12/07/16 at 15:30 Etomidate (Amidate Inj) 20 mg NOW ONCE IV PUSH Last administered on 12/07/16 16:42; Start 12/07/16 at 16:00; Stop 12/07/16 at 16:01; Status DC Rocuronium [place] 50 mg 50 mg NOW ONCE IV PUSH Last administered on 16:41; Start 12/07/16 at 16:00; Stop 12/07/16 at 16:01; Status DC Sodium Bicarbonate/ Sterile Water (Sodium Bicarbonate 8.4% Inj/Sterile Water For Inj) 950 ml @ 100 mls/hr Q9H30M IV Last administered on 12/09/16 08:51; Start 12/07/16 at 18:00; Stop 12/09/16 at 12:22; Status DC Sodium Bicarbonate (Sodium Bicarbonate 8.4% Inj) 50 meq ONCE ONCE IV PUSH Last administered on 12/07/16 17:39; Start 12/07/16 at 16:30; Stop 12/07/16 at 16:59; Status DC Sodium Polystyrene Sulfonate (Kayexalate Liq) 15 gm ONCE ONCE PO Last administered on 12/07/16 19:45; Start 12/07/16 at 19:45; Stop 12/07/16 at 20:06 ; Status DC Sodium Polystyrene Sulfonate (Kayexalate Liq) 15 gm ONCE ONCE RECTAL Last administered on 12/07/16 19:45; Start 12/07/16 at 19:45; Stop 12/07/16 at 20:06 ; Status DC Dextrose (D50w (Vial) Inj) 25 ml STAT ONCE IV PUSH Last administered on 20:13; Start 12/07/16 at 19:45; Stop 12/07/16 at 20:05; Status DC Insulin Human Regular 10 units 10 units STAT ONCE IV PUSH Last administered on 12/07/16 20:14; Start 12/07/16 at 19:45; Stop 12/07/16 at 20:05; Status DC Calcium Gluconate/ Sodium Chloride (Calcium Gluconate Inj/NS Inj) 120 ml @ 120 mls/hr STAT ONCE IV Last administered on 12/07/16 19:45; Start 12/07/16 at 19 :45; Stop 12/07/16 at 20:44; Status DC Aspirin 81 mg 81 mg DAILY CHEW Last administered on 12/14/16 08:16; Start 03/16 at 12:00 Dexmedetomidine HCl 400 mcg/ Sodium Chloride 100 ml @ 0 mls/hr TITRATE IV Last administered on 12/09/16 06:18; Start 12/08/16 at 18:30; Stop 12/10/16 at 09:05 ; Status DC Calcium Gluconate/ Sodium Chloride (Calcium Gluconate Inj/NS Inj) 120 ml @ 120 mls/hr ONCE ONCE IV Last administered on 12/09/16 06:18; Start 12/09/16 at 05 :15; Stop 12/09/16 at 06:14; Status DC Bumetanide (Bumex Inj) 1 mg STK-MED ONCE .ROUTE Last administered on 12/09/16 07:21; Start 12/09/16 at 07:14; Stop 12/09/16 at 07:15; Status DC Bumetanide (Bumex Inj) 1 mg STK-MED ONCE .ROUTE Last administered on 12/09/16 07:21; Start 12/09/16 at 07:14; Stop 12/09/16 at 07:15; Status DC Bumetanide 2 mg 2 mg ONCE ONCE IV PUSH ; Start 12/09/16 at 08:00; Stop at 08:01; Status DC Sodium Chloride (NS 1000 ml Inj) 1,000 ml @ 50 mls/hr Q20H IV Last administered on 12/10/16 17:18; Start 12/09/16 at 13:00; Stop 12/11/16 at 10:28 ; Status DC Calcium Carbonate (Oscal) 500 mg Q12HR PO Last administered on 12/10/16 08:23 ; Start 12/09/16 at 21:00; Stop 12/10/16 at 12:43; Status DC Labetalol HCl (Trandate Inj) 20 mg NOW ONCE IV Last administered on 12/10/16 00:23; Start 12/10/16 at 00:15; Stop 12/10/16 at 00:16; Status DC Labetalol HCl (Trandate Inj) 20 mg Q2H PRN IV SBP > 160 Last administered on 08:05; Start 12/10/16 at 00:15 Metoprolol Tartrate 25 mg 25 mg NOW ONCE PO Last administered on 12/10/16 00: 23; Start 12/10/16 at 00:15; Stop 12/10/16 at 00:16; Status DC Calcium Gluconate/ Sodium Chloride (Calcium Gluconate Inj/NS Inj) 120 ml @ 120 mls/hr NOW ONCE IV Last administered on 12/10/16 07:31; Start 12/10/16 at 07: 00; Stop 12/10/16 at 07:59; Status DC Morphine Sulfate (Morphine Inj) 2 mg Q3H PRN IV PUSH pain, anxiety Last administered on 12/12/16 14:04; Start 12/10/16 at 09:15 Carvedilol (Coreg) 6.25 mg Q12HR PO Last administered on 12/14/16 08:16; Start 12/10/16 at 10:00 Calcium Acetate (Phoslo) 1,334 mg TID PO Last administered on 12/13/16 17:17; Start 12/10/16 at 13:00 Calcitriol (Rocaltrol) 0.5 mcg DAILY PO Last administered on 12/13/16 08:19; Start 12/10/16 at 12:45 Bumetanide 2 mg 2 mg ONCE ONCE IV PUSH Last administered on 12/11/16 11:51; Start 12/11/16 at 11:30; Stop 12/11/16 at 11:31; Status DC Calcium Gluconate/ Dextrose (Calcium Gluconate Inj/D5W 100 ml Inj) 120 ml @ 120 mls/hr ONCE ONCE IV Last administered on 12/11/16 12:17; Start 12/11/16 at 13:00; Stop 12/11/16 at 13:59; Status DC Budesonide/ Formoterol Fumarate (Symbicort 160-4.5 Inh) 1 puff Q12HR INH Last administered on 12/14/16 08:36; Start 12/11/16 at 12:00 Tiotropium [place] (Spiriva Inh) 18 mcg DAILY INH Last administered on 08:24; Start 12/11/16 at 12:00 Clonidine (Catapres) 0.2 mg Q8H PO Last administered on 12/12/16 01:00; Start 12/11/16 at 16:00; Stop 12/12/16 at 07:33; Status DC Amlodipine Besylate (Norvasc) 10 mg DAILY PO Last administered on 12/14/16 08: 16; Start 12/11/16 at 15:15 Hydralazine HCl (Apresoline Inj) 20 mg Q4H PRN IV PUSH SYS BP GREATER THAN 160 MMHG Last administered on 12/12/16 18:41; Start 12/11/16 at 15:15 Bumetanide (Bumex Inj) 3 mg ONCE ONCE IV PUSH Last administered on 12/11/16 18:09; Start 12/11/16 at 17:00; Stop 12/11/16 at 17:01; Status DC Clonidine (Catapres) 0.3 mg Q8H PO Last administered on 12/14/16 08:16; Start 12/12/16 at 08:00 Methylprednisolone Sodium Succinate 40 mg 40 mg Q12H IV PUSH Last administered on 12/14/16 08:17; Start 12/12/16 at 20:00 Sodium Chloride (NS 1000 ml Inj) 1,000 ml @ 0 mls/hr Q0M PRN IV For Prime & Rinse Back Last administered on 12/13/16 14:53; Start 12/12/16 at 12:11 Heparin Sodium (Porcine) 8000 units 8,000 units UNSCH PRN IVF WITH DIALYSIS; Start 12/12/16 at 12:15 Sodium Chloride 1,000 ml @ 200 mls/hr Q5H PRN IV WITH DIALYSIS; Start 12/12/16 at 12:11 Sodium Chloride (NS 1000 ml Inj) 1,000 ml @ 0 mls/hr Q0M PRN IV WITH DIALYSIS Last administered on 12/12/16 17:04; Start 12/12/16 at 12:11 Mannitol (Mannitol Inj) 12.5 gm UNSCH PRN IV WITH DIALYSIS; Start 12/12/16 at 12:15 Albumin Human (Albumin 25% Inj) 25 gm UNSCH PRN IV WITH DIALYSIS; Start at 12:15 Sodium Chloride (NS Flush) 5 ml UNSCH PRN IV FLUSH WITH DIALYSIS; Start at 12:15 Heparin Sodium (Porcine) (Heparin Inj) UNSCH PRN .XX WITH DIALYSIS Last administered on 12/13/16 14:53; Start 12/12/16 at 12:15 Gentamicin Sulfate (Gentamicin (Dialysis) Inj) 20 mg UNSCH PRN IV WITH DIALYSIS Last administered on 12/13/16 14:54; Start 12/12/16 at 12:15 Ondansetron HCl (Zofran Inj) 4 mg UNSCH PRN IV WITH DIALYSIS; Start 12/12/16 at 12:15 Acetaminophen (Tylenol) 650 mg UNSCH PRN PO for headach, pain, temp > 101F; Start 12/12/16 at 12:15 Diphenhydramine HCl (Benadryl) 25 mg UNSCH PRN PO for hives/itching/anaphylaxis ; Start 12/12/16 at 12:15 Nitroglycerin (Nitrostat Sl) 0.4 mg UNSCH PRN SL CHEST PAIN; Start 12/12/16 at 12:15 Clonidine (Catapres) 0.1 mg UNSCH PRN PO for BP > 180/100 X 2 readings; Start 12/12/16 at 12:15 Epoetin Abe (Epogen Inj) 10,000 units UNSCH PRN IV WITH DIALYSIS; Start at 12:15 Gelatin (Gelfoam 12 Mm/7 Mm Top) 1 foam UNSCH PRN TOP SEE LABEL COMMENTS; Start 12/12/16 at 12:15 Lorazepam (Ativan Inj) 2 mg STK-MED ONCE .ROUTE ; Start 12/12/16 at 14:17; Stop 12/12/16 at 14:18; Status DC Lorazepam (Ativan Inj) 2 mg NOW ONCE IV PUSH Last administered on 12/12/16t 14 :59; Start 12/12/16 at 14:45; Stop 12/12/16 at 14:59; Status DC Warfarin Sodium 4 mg 4 mg DAILY@16 PO Last administered on 12/13/16t 17:17; Start 12/13/16 at 16:00 Pharmacy Profile Note (Coumadin Consult Pharmacy) 0 ml @ 0 mls/hr UNSCH OTHER ; Start 12/13/16 at 12:00 A/P Problem List: (1) Respiratory failure ICD Code: J96.90 Status: Acute (2) Sepsis ICD Code: A41.9 Status: Acute (3) Pneumonia ICD Code: J18.9 Status: Acute (4) left atrial thrombus Status: Acute (5) NSTEMI (non-ST elevated myocardial infarction) ICD Code: I21.4 Status: Resolved (6) ARF (acute renal failure) ICD Code: N17.9 Status: Acute (7) Diabetes mellitus ICD Code: E11.9 Status: Chronic (8) Morbid obesity ICD Code: E66.01 Status: Acute (9) Severe chronic obstructive pulmonary disease ICD Code: J44.9 Status: Acute (10) CKD (chronic kidney disease) stage 4, GFR 15-29 ml/min ICD Code: N18.4 Status: Acute Assessment and Plan 66yM with acute bibasilar community acquired pneumonia, sepsis, acute kidney injury, acute hypoxic respiratory failure, multi-organ system failure, NSTEMI. critically ill Acute hypoxic respiratory failure-resolved COPD exacerbation Bilateral lower lobe pneumonias/community acquired Bilateral small effusions Extubated 12/09, tolerating well Solu-Medrol 40 mg q12 Antibiotics as below Nebs, EzPAP, Acapella --CT chest 12/08: Dense bibasilar consolidation left more than right, moderate left effusion --Broad-spectrum antibiotics as below --Symbicort and Spiriva -Clinically improving. NSTEMI LA thrombus Severe sepsis -- Continue heparin drip bridging to coumadin. Pharmacy consultation managing. -- ASA 81 mg daily. Coreg 6.25 mg BID. Norvasc 10 mg daily. Clonidine to 0.3 mg po TID -- Cardiology -Dr Quadrat. Echo Mildly dilated left ventricle. LVEF 45-50%. There is distinct regional WMA with akinetic apex and possibly clot at the apex. - Biatrial moderate dilatation -- Repeat echo study with contrast/Definity to better asses apex-defer to cardiology New severe acute kidney injury Chronic kidney disease -- Nephrology started HD 12/12/16 with 8 L removed. -- BUN/creatinine remains high but improving with HD -- Renal ultrasound-normal -- Young with q1h uop, Strict I/Os FEN/GI: Daily BMP Swallow eval failed. NGT with tube feeds -- Speech therapist is evaluating the patient again. She stated she will let the nurse know if patient can eat. Community acquired bilateral lower lobe pneumonia Severe sepsis Continue Rocephin and azithromycin [place] culture follow up-neg to date Daily CBC -- Received 2 units PRBC 12/08 transfusion for hemoglobin drop to 6.6 from 7.7. -- Hb stable now Type 2 diabetes -- SSI Prophylaxis: GI Prophylaxis Protonix DVT Prophylaxis -- SCDs Heparin drip. Started on Coumadin, pharmacy to dose Discharge Planning Patient can be transferred out of the [facility]. Problem Qualifiers (1) Sepsis: Qualified Code: A41.9 - Sepsis, due to unspecified organism (2) Pneumonia: Qualified Code: J18.9 - Pneumonia of both lower lobes due to infectious organism (3) ARF (acute renal failure): Qualified Code: N17.9 - Acute renal failure, unspecified acute renal failure type (4) Diabetes mellitus: April Gao MD Dec 14, 2016 10:05
--- NOTE | 2016-12-14 12:36 | HHI.NPPN ---
Subjective History of Present Illness 66-year-old male with past medical history of hypertension, diabetes mellitus, history of cerebrovascular accident with left-sided weakness, hyperlipidemia, bronchial asthma, chronic kidney disease who was admitted because of shortness of breath and chest pain. I was called to see the patient because of elevated BUN and creatinine. The patient was diagnosed here with non-ST elevation ND. The patient has history of chronic kidney disease. Additional Remarks Patient is alert, has mild SOB with cough, no chest pain, not in distress. Objective Data Data 12/13/16 12/14/16 19:00 07:00 Intake Total 1352 ml Output Total 3000 ml 850 ml Balance -3000 ml 502 ml Intake Oral 0 ml IV Total 556 ml Tube Feeding 796 ml Output Urine Total 850 ml Hemodialysis 3000 ml # Bowel Movements 0 Vital Signs Date Time Temp Pulse Resp B/P Pulse Ox O2 Delivery O2 Flow Rate FiO2 12/14/16 12:00 98.0 70 11 156/76 100 12/14/16 12:00 80 12/14/16 12:00 70 12/14/16 10:00 79 12/14/16 09:22 100 Nasal Cannula 1.00 12/14/16 08:00 82 12/14/16 08:00 98.3 79 10 180/86 100 12/14/16 06:00 80 12/14/16 04:00 78 12/14/16 04:00 97.8 78 11 166/79 99 12/14/16 02:00 77 12/14/16 00:00 98.8 80 11 168/84 100 12/14/16 00:00 80 12/13/16 22:00 76 12/13/16 20:26 100 Nasal Cannula 1.00 12/13/16 20:00 97.4 75 10 157/72 100 12/13/16 20:00 75 12/13/16 18:00 72 12/13/16 16:00 80 12/13/16 16:00 97.7 80 22 152/75 100 12/13/16 14:00 80 -: 12/14/16 0535 12/14/16 0535 Physical Exam General Appearance: No Acute Distress, Comfortable Eyes Eye Exam: Pupils Equal Throat Throat Exam: Oral Mucosa Burnett & Moist Neck Neck Exam: Neck Supple Pulmonary Resp Exam: No Distress, Rhonchi, Decreased Bases, Diminished Breath Sounds Cardiology CV Exam: Regular, Normal Sinus Rhythm Gastrointestinal/Abdomen GI Exam: Soft, Non-Tender, Bowel Sounds Present Extremeties Extremities Exam: Moderate Edema Neurologic Neuro Exam: Alert, Awake Psychiatric Psych Exam: Appropriate Responses Assessment/Plan Assessment Summary: WILLIE/Acute Renal Failure, CHF, CKD Stage IV Problem List: (1) NSTEMI (non-ST elevated myocardial infarction) (2) Diabetes mellitus (3) Asthma (4) Shortness of breath (5) Leg edema (6) Hypertension (7) CKD (chronic kidney disease) stage 4, GFR 15-29 ml/min (8) ARF (acute renal failure) Plan Patient has been non oliguric, Creatinine is still above 7. K is normal, Hco3 is normal now. Follow urine out put and BMP. May will need HD if no improvement. Has proteinuria, serology pending. Added Phoslo as Po4 is elevated and calcitriol as Calcium is low. BP is still elevated , will follow. HD done yesterday. D/W the entry table operator and custom applicator, will do HD again today to remove 3-4 liters. BP is still on higher side, follow post HD. Problem Qualifiers (1) Diabetes mellitus: (2) ARF (acute renal failure): Qualified Code: N17.9 - Acute renal failure, unspecified acute renal failure type Zoey Carbone MD Dec 14, 2016 12:36
--- NOTE | 2016-12-14 13:26 | PD.CARD.PN ---
Subjective Subjective Remarks No CP or SOB, just starting dialysis, so far tolerated well Objective Medications Current Medications Medications (Trade) Dose Ordered Sig/Abby Route Start Time Stop Time Status Last Admin (D50w (Vial) Inj) 25 ml UNSCH PRN IV PUSH 12/07/16 00:45 (NovoLIN R SUPPLEMENTAL SCALE) 1 Q6HR SQ 12/07/16 06:00 12/14/16 11:59 Ondansetron HCl 4 mg 4 mg Q6H PRN IV 12/07/16 00:45 Azithromycin 500 mg/Sodium Chloride 250 ml @ 250 mls/hr Q24H IV 12/08/16 09:00 12/15/16 08:59 12/14/16 08:20 Ceftriaxone Sodium 1000 mg/ Sodium Chloride 100 ml @ 200 mls/hr Q24H IV 12/08/16 09:00 12/15/16 08:59 12/14/16 08:20 (Heparin-D5W Inj) 250 ml @ 0 mls/hr TITRATE IV 12/07/16 01:45 12/13/16 23:54 (NS Flush) DAILY IVF 12/07/16 15:30 12/13/16 08:22 (NS Flush) UNSCH PRN IVF 12/07/16 15:30 (Peridex 0.12% Liq) 15 ml BID@08,20 MT 12/07/16 20:00 12/13/16 20:00 (NS Flush) 2 ml UNSCH PRN IV FLUSH 12/07/16 15:30 12/12/16 11:32 (NS Flush) 2 ml BID IV FLUSH 12/07/16 21:00 12/14/16 08:20 (Tylenol) 650 mg Q6H PRN PO 12/07/16 15:30 (Protonix Inj) 40 mg DAILY IV 12/08/16 09:00 12/14/16 08:17 (Tears Naturale Opth Soln) 1 drop TID EACH EYE 12/07/16 18:00 12/14/16 11:58 Miscellaneous Information 1 Q361D XX 12/07/16 15:30 (Chlorhexidine 2% Cloth) Taper DAILY@04 TOP 12/08/16 04:00 12/04/17 03:59 12/14/16 04:00 (Chlorhexidine 2% Cloth) 3 pack UNSCH PRN TOP 12/07/16 15:30 (Sara-Colace) 1 tab BID PO 12/07/16 21:00 12/14/16 08:16 (Milk Of Magnesia Liq) 30 ml Q12H PRN PO 12/07/16 15:30 (Senokot) 17.2 mg Q12H PRN PO 12/07/16 15:30 12/13/16 08:21 (Dulcolax Supp) 10 mg DAILY PRN RECTAL 12/07/16 15:30 (Lactulose Liq) 30 ml DAILY PRN PO 12/07/16 15:30 12/13/16 08:21 (Aspirin Chew) 81 mg DAILY CHEW 12/08/16 12:00 12/14/16 08:16 (Trandate Inj) 20 mg Q2H PRN IV 12/10/16 00:15 12/14/16 08:05 (Morphine Inj) 2 mg Q3H PRN IV PUSH 12/10/16 09:15 12/12/16 14:04 (Coreg) 6.25 mg Q12HR PO 12/10/16 10:00 12/14/16 08:16 (Phoslo) 1,334 mg TID PO 12/10/16 13:00 12/14/16 11:58 (Rocaltrol) 0.5 mcg DAILY PO 12/10/16 12:45 12/13/16 08:19 (Symbicort 160-4.5 Inh) 1 puff Q12HR INH 12/11/16 12:00 12/14/16 08:36 (Spiriva Inh) 18 mcg DAILY INH 12/11/16 12:00 12/14/16 08:24 (Norvasc) 10 mg DAILY PO 12/11/16 15:15 12/14/16 08:16 (Apresoline Inj) 20 mg Q4H PRN IV PUSH 12/11/16 15:15 12/12/16 18:41 (Catapres) 0.3 mg Q8H PO 12/12/16 08:00 12/14/16 08:16 Methylprednisolone Sodium Succinate 40 mg 40 mg Q12H IV PUSH 12/12/16 20:00 12/14/16 08:17 (NS 1000 ml Inj) 1,000 ml @ 0 mls/hr Q0M PRN IV 12/12/16 12:11 12/13/16 14:53 Heparin Sodium (Porcine) 8000 units 8,000 units UNSCH PRN IVF 12/12/16 12:15 Sodium Chloride 1,000 ml @ 200 mls/hr Q5H PRN IV 12/12/16 12:11 (NS 1000 ml Inj) 1,000 ml @ 0 mls/hr Q0M PRN IV 12/12/16 12:11 12/12/16 17:04 (Mannitol Inj) 12.5 gm UNSCH PRN IV 12/12/16 12:15 (Albumin 25% Inj) 25 gm UNSCH PRN IV 12/12/16 12:15 (NS Flush) 5 ml UNSCH PRN IV FLUSH 12/12/16 12:15 (Heparin Inj) UNSCH PRN .XX 12/12/16 12:15 12/13/16 14:53 (Gentamicin (Dialysis) Inj) 20 mg UNSCH PRN IV 12/12/16 12:15 12/13/16 14:54 (Zofran Inj) 4 mg UNSCH PRN IV 12/12/16 12:15 (Tylenol) 650 mg UNSCH PRN PO 12/12/16 12:15 (Benadryl) 25 mg UNSCH PRN PO 12/12/16 12:15 (Nitrostat Sl) 0.4 mg UNSCH PRN SL 12/12/16 12:15 (Catapres) 0.1 mg UNSCH PRN PO 12/12/16 12:15 (Epogen Inj) 10,000 units UNSCH PRN IV 12/12/16 12:15 (Gelfoam 12 Mm/7 Mm Top) 1 foam UNSCH PRN TOP 12/12/16 12:15 Warfarin Sodium 4 mg 4 mg DAILY@16 PO 12/13/16 16:00 12/13/16 17:17 (Coumadin Consult Pharmacy) 0 ml @ 0 mls/hr UNSCH OTHER 12/13/16 12:00 Vital Signs / I&O Vital Signs Date Time Temp Pulse Resp B/P Pulse Ox O2 Delivery O2 Flow Rate FiO2 12/14/16 12:00 98.0 70 11 156/76 100 12/14/16 12:00 80 12/14/16 12:00 70 12/14/16 10:00 79 12/14/16 09:22 100 Nasal Cannula 1.00 12/14/16 08:00 82 12/14/16 08:00 98.3 79 10 180/86 100 12/14/16 06:00 80 12/14/16 04:00 78 12/14/16 04:00 97.8 78 11 166/79 99 12/14/16 02:00 77 12/14/16 00:00 98.8 80 11 168/84 100 12/14/16 00:00 80 12/13/16 22:00 76 12/13/16 20:26 100 Nasal Cannula 1.00 12/13/16 20:00 97.4 75 10 157/72 100 12/13/16 20:00 75 12/13/16 18:00 72 12/13/16 16:00 80 12/13/16 16:00 97.7 80 22 152/75 100 12/13/16 14:00 80 I/O 12/13/16 12/13/16 12/13/16 12/14/16 12/14/16 12/14/16 07:00 15:00 23:00 07:00 15:00 23:00 Intake Total 233 ml 471 ml 881 ml Output Total 150 ml 3000 ml 400 ml 450 ml Balance 83 ml -3000 ml 71 ml 431 ml Intake Oral 0 ml 0 ml 0 ml IV Total 96 ml 74 ml 482 ml Tube Feeding 137 ml 397 ml 399 ml Output Urine Total 150 ml 400 ml 450 ml Hemodialysis 3000 ml # Bowel Movements 0 0 0 Physical Exam GENERAL: In NAD SKIN: Warm and dry. HEAD: Normocephalic. EYES: No scleral icterus. No injection or drainage. NECK: Supple, trachea midline. No JVD or lymphadenopathy. CARDIOVASCULAR: Regular rate and rhythm, mild tachycardia, no murmurs, gallops, or rubs. RESPIRATORY: Breath sounds equal bilaterally. No accessory muscle use. GASTROINTESTINAL: Abdomen soft, non-tender, nondistended. MUSCULOSKELETAL: No cyanosis, mild edema, dry, scaly skin Laboratory Laboratory Tests Test 12/13/16 12/14/16 12/14/16 17:00 02:29 05:35 Activated Partial 83.2 SEC 43.3 SEC 40.6 SEC Thromboplast Time White Blood Count 9.1 TH/MM3 Red Blood Count 2.94 MIL/MM3 Hemoglobin 9.0 GM/DL Hematocrit 26.4 % Mean Corpuscular Volume 89.7 FL Mean Corpuscular Hemoglobin 30.6 PG Mean Corpuscular Hemoglobin 34.2 % Concent Red Cell Distribution Width 15.0 % Platelet Count 221 TH/MM3 Mean Platelet Volume 9.1 FL Neutrophils (%) (Auto) 89.4 % Lymphocytes (%) (Auto) 4.4 % Monocytes (%) (Auto) 6.1 % Eosinophils (%) (Auto) 0.0 % Basophils (%) (Auto) 0.1 % Neutrophils # (Auto) 8.1 TH/MM3 Lymphocytes # (Auto) 0.4 TH/MM3 Monocytes # (Auto) 0.6 TH/MM3 Eosinophils # (Auto) 0.0 TH/MM3 Basophils # (Auto) 0.0 TH/MM3 CBC Comment AUTO DIFF Differential Total Cells 100 Counted Neutrophils % (Manual) 87 % Band Neutrophils % 1 % Lymphocytes % 4 % Monocytes % 4 % Neutrophils # (Manual) 8.4 TH/MM3 Metamyelocytes 1 % Myelocytes 3 % Differential Comment FINAL DIFF MANUAL Platelet Estimate NORMAL Platelet Morphology Comment NORMAL Red Cell Morphology Comment NORMAL Prothrombin Time 11.0 SEC Prothromb Time International 1.0 RATIO Ratio Sodium Level 138 MEQ/L Potassium Level 4.4 MEQ/L Chloride Level 101 MEQ/L Carbon Dioxide Level 28.4 MEQ/L Anion Gap 9 MEQ/L Blood Urea Nitrogen 90 MG/DL Creatinine 4.95 MG/DL Estimat Glomerular Filtration 12 ML/MIN Rate Random Glucose 376 MG/DL Calcium Level 7.8 MG/DL Magnesium Level 2.4 MG/DL Total Bilirubin 0.2 MG/DL Aspartate Amino Transf 13 U/L (AST/SGOT) Alanine Aminotransferase 23 U/L (ALT/SGPT) Alkaline Phosphatase 103 U/L Total Protein 6.0 GM/DL Albumin 2.4 GM/DL Imaging Last Impressions Chest X-Ray 12/13/16 0600 Signed Impressions: Service Date/Time: Tuesday, December 13, 2016 04:54 - CONCLUSION: Persistent lobar consolidation left lower lung. Jose Roberto Cheema MD Chest CT 12/08/16 0000 Signed Impressions: Service Date/Time: Thursday, December 08, 2016 14:02 - CONCLUSION: 1. Bilateral lower lobe consolidating airspace disease. 2. Small to moderate bilateral pleural effusions; larger on the left. 3. Cardiomegaly. 4. Endotracheal and nasogastric tubes in good position. Tutu Christianson MD Renal Ultrasound 12/07/16 0000 Signed Impressions: Service Date/Time: November 07:54 - CONCLUSION: Unremarkable and stable bilateral renal ultrasound. No evidence of hydronephrosis. Baron Medrano MD Assessment and Plan Problem List: (1) Respiratory failure (2) Sepsis (3) Pneumonia (4) ARF (acute renal failure) (5) Elevated troponin (6) Diabetes mellitus (7) Hypertension (8) Morbid obesity (9) Anemia Assessment and Plan Dialysis well tolerated, still removing excess fluid. No new cardiac issues. Continue and titrate tx for severe HTN. Continue tx for pneumonia. Continue aggressive risk factor modification. Increase activity. Continue dialysis. Transfer to floor with tele. Problem Qualifiers (1) Sepsis: Qualified Code: A41.9 - Sepsis, due to unspecified organism (2) Pneumonia: Qualified Code: J18.9 - Pneumonia of both lower lobes due to infectious organism (3) ARF (acute renal failure): Qualified Code: N17.9 - Acute renal failure, unspecified acute renal failure type (4) Diabetes mellitus: (5) Anemia: Qualified Code: D64.89 - Anemia due to other cause, not classified Mark Chapin MD Dec 14, 2016 13:26
[2016-12-14] MEDS: WARFARIN SOD 4 MG TAB PO SCH (16:16)
[2016-12-15] VITALS (14 sets, daily range): BP systolic 154–164; BP diastolic 68–82; PULSE 65–83; RESP 16–20; TEMP 97.7–98.7; O2SAT 95–97
[2016-12-15] MEDS: HEPARIN-D5W 25,000 U/250 ML 250 ML IV SCH (00:51)
[2016-12-15] MEDS: CHLORHEXIDINE GLUCONATE 2 % 1 PACK (2 CLOTHS) TOP SCH (03:38)
[2016-12-15] MEDS: INSULIN NovoLIN REGULAR SUPPLEMENTAL SCALE SQ SCH ×3 (05:39→18:00)
[2016-12-15] MEDS: CHLORHEXIDINE 0.12% (ORAL KIT) 15 ML CUP MT SCH ×2 (08:00→20:00)
[2016-12-15] MEDS: SODIUM CHLORIDE 0.9% FLUSH 10 ML FLUSH IV FLUSH SCH ×2 (09:00→21:41)
[2016-12-15] MEDS: SODIUM CHLORIDE 0.9% FLUSH 10 ML FLUSH IVF SCH (09:00)
--- NOTE | 2016-12-15 09:09 | PD.CARD.PN ---
Subjective Subjective Remarks No CP or SOB, hungry, tolerating dialysis well Objective Medications Current Medications Medications (Trade) Dose Ordered Sig/Abby Route Start Time Stop Time Status Last Admin (D50w (Vial) Inj) 25 ml UNSCH PRN IV PUSH 12/07/16 00:45 (NovoLIN R SUPPLEMENTAL SCALE) 1 Q6HR SQ 12/07/16 06:00 12/15/16 05:39 Ondansetron HCl 4 mg 4 mg Q6H PRN IV 12/07/16 00:45 (Heparin-D5W Inj) 250 ml @ 0 mls/hr TITRATE IV 12/07/16 01:45 12/15/16 00:51 (NS Flush) DAILY IVF 12/07/16 15:30 12/13/16 08:22 (NS Flush) UNSCH PRN IVF 12/07/16 15:30 (Peridex 0.12% Liq) 15 ml BID@08,20 MT 12/07/16 20:00 12/13/16 20:00 (NS Flush) 2 ml UNSCH PRN IV FLUSH 12/07/16 15:30 12/12/16 11:32 (NS Flush) 2 ml BID IV FLUSH 12/07/16 21:00 12/14/16 21:57 (Tylenol) 650 mg Q6H PRN PO 12/07/16 15:30 (Protonix Inj) 40 mg DAILY IV 12/08/16 09:00 12/14/16 08:17 (Tears Naturale Opth Soln) 1 drop TID EACH EYE 12/07/16 18:00 12/14/16 11:58 Miscellaneous Information 1 Q361D XX 12/07/16 15:30 (Chlorhexidine 2% Cloth) Taper DAILY@04 TOP 12/08/16 04:00 12/04/17 03:59 12/14/16 04:00 (Chlorhexidine 2% Cloth) 3 pack UNSCH PRN TOP 12/07/16 15:30 (Sara-Colace) 1 tab BID PO 12/07/16 21:00 12/14/16 21:56 (Milk Of Magnesia Liq) 30 ml Q12H PRN PO 12/07/16 15:30 (Senokot) 17.2 mg Q12H PRN PO 12/07/16 15:30 12/13/16 08:21 (Dulcolax Supp) 10 mg DAILY PRN RECTAL 12/07/16 15:30 (Lactulose Liq) 30 ml DAILY PRN PO 12/07/16 15:30 12/13/16 08:21 (Aspirin Chew) 81 mg DAILY CHEW 12/08/16 12:00 12/14/16 08:16 (Trandate Inj) 20 mg Q2H PRN IV 12/10/16 00:15 12/14/16 08:05 (Morphine Inj) 2 mg Q3H PRN IV PUSH 12/10/16 09:15 12/12/16 14:04 (Coreg) 6.25 mg Q12HR PO 12/10/16 10:00 12/14/16 21:56 (Phoslo) 1,334 mg TID PO 12/10/16 13:00 12/14/16 18:55 (Rocaltrol) 0.5 mcg DAILY PO 12/10/16 12:45 12/13/16 08:19 (Symbicort 160-4.5 Inh) 1 puff Q12HR INH 12/11/16 12:00 12/14/16 08:36 (Spiriva Inh) 18 mcg DAILY INH 12/11/16 12:00 12/14/16 08:24 (Norvasc) 10 mg DAILY PO 12/11/16 15:15 12/14/16 08:16 (Apresoline Inj) 20 mg Q4H PRN IV PUSH 12/11/16 15:15 12/12/16 18:41 (Catapres) 0.3 mg Q8H PO 12/12/16 08:00 12/14/16 23:54 Methylprednisolone Sodium Succinate 40 mg 40 mg Q12H IV PUSH 12/12/16 20:00 12/14/16 21:57 (NS 1000 ml Inj) 1,000 ml @ 0 mls/hr Q0M PRN IV 12/12/16 12:11 12/13/16 14:53 Heparin Sodium (Porcine) 8000 units 8,000 units UNSCH PRN IVF 12/12/16 12:15 Sodium Chloride 1,000 ml @ 200 mls/hr Q5H PRN IV 12/12/16 12:11 (NS 1000 ml Inj) 1,000 ml @ 0 mls/hr Q0M PRN IV 12/12/16 12:11 12/12/16 17:04 (Mannitol Inj) 12.5 gm UNSCH PRN IV 12/12/16 12:15 (Albumin 25% Inj) 25 gm UNSCH PRN IV 12/12/16 12:15 (NS Flush) 5 ml UNSCH PRN IV FLUSH 12/12/16 12:15 (Heparin Inj) UNSCH PRN .XX 12/12/16 12:15 12/13/16 14:53 (Gentamicin (Dialysis) Inj) 20 mg UNSCH PRN IV 12/12/16 12:15 12/13/16 14:54 (Zofran Inj) 4 mg UNSCH PRN IV 12/12/16 12:15 (Tylenol) 650 mg UNSCH PRN PO 12/12/16 12:15 (Benadryl) 25 mg UNSCH PRN PO 12/12/16 12:15 (Nitrostat Sl) 0.4 mg UNSCH PRN SL 12/12/16 12:15 (Catapres) 0.1 mg UNSCH PRN PO 12/12/16 12:15 (Epogen Inj) 10,000 units UNSCH PRN IV 12/12/16 12:15 (Gelfoam 12 Mm/7 Mm Top) 1 foam UNSCH PRN TOP 12/12/16 12:15 Warfarin Sodium 4 mg 4 mg DAILY@16 PO 12/13/16 16:00 12/14/16 16:16 (Coumadin Consult Pharmacy) 0 ml @ 0 mls/hr UNSCH OTHER 12/13/16 12:00 Vital Signs / I&O Vital Signs Date Time Temp Pulse Resp B/P Pulse Ox O2 Delivery O2 Flow Rate FiO2 12/15/16 08:10 78 12/15/16 08:10 Room Air 12/15/16 04:00 97.9 65 18 157/82 97 12/15/16 04:00 Room Air 12/15/16 00:00 Room Air 12/15/16 00:00 97.7 66 18 154/82 97 12/14/16 20:00 Room Air 12/14/16 20:00 97.7 62 18 143/72 98 12/14/16 20:00 64 12/14/16 16:00 77 12/14/16 16:00 97.8 77 14 166/91 100 8/17/17 14:00 71 12/14/16 12:00 98.0 70 11 156/76 100 12/14/16 12:00 80 12/14/16 12:00 70 12/14/16 10:00 79 12/14/16 09:22 100 Nasal Cannula 1.00 I/O 12/14/16 12/14/16 12/14/16 12/15/16 12/15/16 12/15/16 07:00 15:00 23:00 07:00 15:00 23:00 Intake Total 881 ml 1161 ml 480 ml 603 ml Output Total 450 ml 525 ml 4300 ml 400 ml Balance 431 ml 636 ml -3820 ml 203 ml Intake Oral 0 ml 300 ml 480 ml 480 ml IV Total 482 ml 517 ml 123 ml Tube Feeding 399 ml 244 ml Tube Irrigant 100 ml Output Urine Total 450 ml 525 ml 300 ml 400 ml Hemodialysis 4000 ml # Bowel Movements 0 0 0 Physical Exam GENERAL: In NAD SKIN: Warm and dry. HEAD: Normocephalic. EYES: No scleral icterus. No injection or drainage. NECK: Supple, trachea midline. No JVD or lymphadenopathy. CARDIOVASCULAR: Regular rate and rhythm, mild tachycardia, no murmurs, gallops, or rubs. RESPIRATORY: Breath sounds equal bilaterally. No accessory muscle use. GASTROINTESTINAL: Abdomen soft, non-tender, nondistended. MUSCULOSKELETAL: No cyanosis, mild edema, dry, scaly skin Laboratory Laboratory Tests Test 12/14/16 13:31 Activated Partial 46.0 SEC Thromboplast Time Imaging Last Impressions Chest X-Ray 12/13/16 0600 Signed Impressions: Service Date/Time: Tuesday, December 13, 2016 04:54 - CONCLUSION: Persistent lobar consolidation left lower lung. Jose Roberto Cheema MD Chest CT 12/08/16 0000 Signed Impressions: Service Date/Time: Thursday, December 08, 2016 14:02 - CONCLUSION: 1. Bilateral lower lobe consolidating airspace disease. 2. Small to moderate bilateral pleural effusions; larger on the left. 3. Cardiomegaly. 4. Endotracheal and nasogastric tubes in good position. Tutu Christianson MD Renal Ultrasound 12/07/16 0000 Signed Impressions: Service Date/Time: November 07:54 - CONCLUSION: Unremarkable and stable bilateral renal ultrasound. No evidence of hydronephrosis. Baron Medrano MD Assessment and Plan Problem List: (1) Respiratory failure (2) Sepsis (3) Pneumonia (4) ARF (acute renal failure) (5) Elevated troponin (6) Diabetes mellitus (7) Hypertension (8) Morbid obesity (9) Anemia Assessment and Plan No new cardiac issues. Dialysis well tolerated, still removing excess fluid. BP improving, continue and titrate tx for severe HTN. Continue tx for pneumonia. Continue aggressive risk factor modification. Increase activity, PT. Problem Qualifiers (1) Sepsis: Qualified Code: A41.9 - Sepsis, due to unspecified organism (2) Pneumonia: Qualified Code: J18.9 - Pneumonia of both lower lobes due to infectious organism (3) ARF (acute renal failure): Qualified Code: N17.9 - Acute renal failure, unspecified acute renal failure type (4) Diabetes mellitus: (5) Anemia: Qualified Code: D64.89 - Anemia due to other cause, not classified Mark Chapin MD Dec 15, 2016 09:08
[2016-12-15 09:14] LABS: HEMATOCRIT 24.6 % (39.0-51.0); MEAN CELL VOLUME 87.3 FL (80.0-100.0); MEAN CORPUSCULAR HEMOGLOBIN 30.1 PG (27.0-34.0); MEAN CORPUSCULAR HGB CONC 34.4 % (32.0-36.0); PLATELET COUNT 199 TH/MM3 (150-450); RED BLOOD COUNT 2.81 MIL/MM3 (4.50-5.90); RED CELL DISTRIBUTION WIDTH 14.4 % (11.6-17.2); REVIEW FLAG FINAL; WHITE BLOOD COUNT 9.9 TH/MM3 (4.0-11.0)
[2016-12-15 09:18] LABS: APTT (PATIENT) 42.7 SEC (24.3-30.1); INTERNATIONAL NORMALIZED RATIO 1.1 RATIO; PROTHROMBIN TIME - PATIENT 12.7 SEC (9.8-11.6)
[2016-12-15 09:45] LABS: BICARBONATE 29.4 MEQ/L (21.0-32.0); POTASSIUM 4.6 MEQ/L (3.5-5.1)
[2016-12-15] MEDS: TIOTROPIUM BROMIDE 18 MCG INH INH SCH (10:11)
[2016-12-15] MEDS: CALCITRIOL 0.25 MCG CAP PO SCH (10:11)
[2016-12-15] MEDS: ARTIFICIAL TEARS OPTH SOLN 15 ML BTL EACH EYE SCH ×3 (10:11→17:00)
[2016-12-15] MEDS: BUDESONIDE-FORMOTEROL 160/4.5 MCG INHALER INH SCH ×2 (10:11→21:40)
[2016-12-15] MEDS: DOCUSATE SODIUM 50 MG/SENNA 8.6 MG TAB PO SCH ×2 (10:12→21:39)
[2016-12-15] MEDS: ASPIRIN 81 MG CHEW TAB CHEW SCH (10:12)
[2016-12-15] MEDS: PANTOPRAZOLE SODIUM 40 MG VIAL IV SCH (10:12)
[2016-12-15] MEDS: CALCIUM ACETATE 667 MG CAP PO SCH ×3 (10:12→16:59)
[2016-12-15] MEDS: CARVEDILOL 6.25 MG TAB PO SCH ×2 (10:12→21:41)
[2016-12-15] MEDS: cloNIDine HCL 0.3 MG TAB PO SCH ×3 (10:26→23:54)
[2016-12-15] MEDS: methylPREDNISolone SOD SUCC 40 MG/1 ML VIAL IV PUSH SCH ×2 (10:26→21:39)
--- NOTE | 2016-12-15 13:53 | HHI.PR ---
Subjective Remarks Follow-up for multiple medical conditions listed in assessment plan Patient declined on [employer] today. He felt that it was too hard to use yesterday. Patient stated that he does understand. He denies any shortness of breathing. Denies any pain. He stated that he feels like he is doing better. Dealt with patient's nurse who has no complaints. Objective Vitals Vital Signs Date Time Temp Pulse Resp B/P Pulse Ox O2 Delivery O2 Flow Rate FiO2 12/15/16 12:24 67 12/15/16 12:00 98.4 80 20 164/78 97 12/15/16 10:46 69 12/15/16 10:19 97 21 12/15/16 08:10 78 12/15/16 08:10 Room Air 12/15/16 08:00 98.2 70 18 162/77 95 12/15/16 04:00 97.9 65 18 157/82 97 12/15/16 04:00 Room Air 12/15/16 00:00 Room Air 12/15/16 00:00 97.7 66 18 154/82 97 12/14/16 20:00 Room Air 12/14/16 20:00 97.7 62 18 143/72 98 12/14/16 20:00 64 12/14/16 16:00 77 12/14/16 16:00 97.8 77 14 166/91 100 12/14/16 14:00 71 I/O 12/14/16 12/14/16 12/14/16 12/15/16 12/15/16 12/15/16 06:59 14:59 22:59 06:59 14:59 22:59 Intake Total 881 ml 1161 ml 480 ml 603 ml Output Total 450 ml 525 ml 4300 ml 400 ml Balance 431 ml 636 ml -3820 ml 203 ml Intake Oral 0 ml 300 ml 480 ml 480 ml IV Total 482 ml 517 ml 123 ml Tube Feeding 399 ml 244 ml Tube Irrigant 100 ml Output Urine Total 450 ml 525 ml 300 ml 400 ml Hemodialysis 4000 ml # Bowel Movements 0 0 0 Result Diagram: 12/15/16 0804 12/15/16 0804 Imaging Last Impressions Chest X-Ray 12/13/16 0600 Signed Impressions: Service Date/Time: Tuesday, December 13, 2016 04:54 - CONCLUSION: Persistent lobar consolidation left lower lung. Jose Roberto Cheema MD Chest CT 12/08/16 0000 Signed Impressions: Service Date/Time: Thursday, December 08, 2016 14:02 - CONCLUSION: 1. Bilateral lower lobe consolidating airspace disease. 2. Small to moderate bilateral pleural effusions; larger on the left. 3. Cardiomegaly. 4. Endotracheal and nasogastric tubes in good position. Tutu Christianson MD Renal Ultrasound 12/07/16 0000 Signed Impressions: Service Date/Time: November 07:54 - CONCLUSION: Unremarkable and stable bilateral renal ultrasound. No evidence of hydronephrosis. Baron Medrano MD Objective Remarks GENERAL: Obese middle-aged male, in mild discomfort HEENT: Normocephalic. Atraumatic. Pupils equal, round, reactive, conjugate. NECK: Trachea is midline. There is no JVD. CHEST: Clear to auscultation bilaterally CARDIOVASCULAR: S1-S2 normal no murmurs, regular rhythm ABDOMEN: Soft, nontender, nondistended. No guarding. MUSCULOSKELETAL: Pulses 2+. No peripheral edema. NEUROLOGICAL: Alert awake. Citizen Of [place] speaking. Follows commands, non focal exam Medications and IVs Current Medications Sodium Chloride (NS Flush) 2 ml UNSCH PRN IVF FLUSH AFTER USING IV ACCESS Last administered on 12/07/16 08:58; Start 12/06/16 at 23:30; Stop 12/07/16 at 16:07 ; Status DC Furosemide (Lasix Inj) 40 mg ONCE ONCE IVP Last administered on 12/06/16 23:37 ; Start 12/06/16 at 23:30; Stop 12/06/16 at 23:31; Status DC Methylprednisolone Sodium Succinate (SoluMEDROL INJ) 125 mg ONCE ONCE IVP Last administered on 12/06/16 23:38; Start 12/06/16 at 23:30; Stop 12/06/16 at 23: 31; Status DC Albuterol/ Ipratropium 1 ampule 1 ampule Q15M INH Last administered on 23:40; Start 12/06/16 at 23:30; Stop 12/07/16 at 00:01; Status DC Ceftriaxone Sodium 1000 mg/ Sodium Chloride 100 ml @ 200 mls/hr ONCE ONCE IV Last administered on 12/07/16 00:08; Start 12/07/16 at 00:00; Stop 12/07/16 at 00:29; Status DC Azithromycin/ Sodium Chloride (Zithromax Inj/ NS 250 ml Inj) 250 ml @ 250 mls/ hr ONCE ONCE IV Last administered on 12/07/16 00:23; Start 12/07/16 at 00:00 ; Stop 12/07/16 at 00:59; Status DC Acetaminophen 650 mg 650 mg ONCE ONCE RECTAL Last administered on 12/07/16 00 :23; Start 12/07/16 at 00:15; Stop 12/07/16 at 00:16; Status DC Sodium Chloride 1,000 ml @ 125 mls/hr Q8H IV Last administered on 12/07/16 00 :23; Start 12/07/16 at 00:01; Stop 12/07/16 at 01:52; Status DC Sodium Chloride (NS 1000 ml Inj) 1,000 ml @ 999 mls/hr BOLUS ONCE IV Last administered on 12/07/16 00:42; Start 12/07/16 at 00:30; Stop 12/07/16 at 01:30 ; Status DC Dextrose (D50w (Vial) Inj) 25 ml UNSCH PRN IV PUSH HYPOGLYCEMIA-SEE COMMENTS; Start 12/07/16 at 00:45 Insulin Human Regular (NovoLIN R SUPPLEMENTAL SCALE) 1 Q6HR SQ Last administered on 12/15/16 05:39; Start 12/07/16 at 06:00 Albuterol/ Ipratropium (Duoneb Neb) 1 ampule Q6HR NEB INH Last administered on 12/14/16 03:30; Start 12/07/16 at 04:00; Stop 12/14/16 at 09:04; Status DC Albuterol/ Ipratropium (Duoneb Neb) 1 ampule Q2HR NEB PRN INH WHEEZING; Start 12/07/16 at 00:45; Stop 12/07/16 at 15:28; Status DC Ondansetron HCl (Zofran Inj) 4 mg Q6H PRN IV NAUSEA OR VOMITING; Start at 00:45 Miscellaneous Information 1 Q361D XX ; Start 12/07/16 at 00:45; Stop 12/09/16 at 12:49; Status DC Chlorhexidine Gluconate (Chlorhexidine 2% Cloth) 3 pack Taper DAILY@04 TOP Last administered on 12/09/16 04:00; Start 12/07/16 at 04:00; Stop 12/09/16 at 12:49; Status DC Chlorhexidine Gluconate 3 pack 3 pack UNSCH PRN TOP HYGIENIC CARE; Start at 00:45; Stop 12/09/16 at 12:50; Status DC Sodium Chloride (NS 1000 ml Inj) 1,000 ml @ 100 mls/hr Q10H IV Last administered on 12/07/16 11:45; Start 12/07/16 at 01:45; Stop 12/07/16 at 16:08 ; Status DC Methylprednisolone Sodium Succinate 60 mg 60 mg Q12HR IV PUSH Last administered on 12/12/16 07:53; Start 12/07/16 at 09:00; Stop 12/12/16 at 08:03 ; Status DC Azithromycin 500 mg/Sodium Chloride 250 ml @ 250 mls/hr Q24H IV Last administered on 12/14/16 08:20; Start 12/08/16 at 09:00; Stop 12/15/16 at 08:59 ; Status DC Ceftriaxone Sodium 1000 mg/ Sodium Chloride 100 ml @ 200 mls/hr Q24H IV Last administered on 12/14/16 08:20; Start 12/08/16 at 09:00; Stop 12/15/16 at 08:59 ; Status DC Heparin Sodium/ Dextrose (Heparin-D5W Inj) 250 ml @ 0 mls/hr TITRATE IV Last administered on 12/15/16 00:51; Start 12/07/16 at 01:45 Chlorhexidine Gluconate (Peridex 0.12% Liq) 15 ml BID@08,20 MT Last administered on 12/09/16 08:50; Start 12/07/16 at 20:00; Stop 12/09/16 at 12:50 ; Status DC Etomidate (Amidate Inj) 40 mg ONCE ONCE IV PUSH ; Start 12/07/16 at 14:45; Stop 12/07/16 at 14:46; Status Cancel Rocuronium [place] (Zemuron Inj) 100 mg BOLUS ONCE IV ; Start 12/07/16 at 14:45 ; Stop 12/07/16 at 14:46; Status Cancel Etomidate (Amidate Inj) 20 mg STK-MED ONCE .ROUTE ; Start 12/07/16 at 13:23; Stop 12/07/16 at 13:24; Status DC Rocuronium [place] (Zemuron Inj) 50 mg STK-MED ONCE .ROUTE ; Start 12/07/16 at 13:24; Stop 12/07/16 at 13:25; Status DC Rocuronium [place] 50 mg 50 mg STK-MED ONCE .ROUTE ; Start 12/07/16 at 13:41; Stop 12/07/16 at 13:42; Status DC Propofol (Diprivan 1000 Mg/100ml Inj) 100 ml @ As Directed STK-MED ONCE .ROUTE ; Start 12/07/16 at 13:43; Stop 12/07/16 at 13:44; Status DC Sodium Chloride (NS Flush) DAILY IVF Last administered on 12/15/16 09:00; Start 12/07/16 at 15:30 Sodium Chloride (NS Flush) UNSCH PRN IVF SEE PROTOCOL; Start 12/07/16 at 15:30 Chlorhexidine Gluconate 15 ml 15 ml BID@08,20 MT Last administered on 20:00; Start 12/07/16 at 20:00 Propofol 100 ml @ 0 mls/hr TITRATE IV Last administered on 12/08/16 17:52; Start 12/07/16 at 15:30; Stop 12/10/16 at 09:05; Status DC Fentanyl Citrate (fentaNYL DRIP) 250 ml @ 0 mls/hr TITRATE IV Last administered on 12/08/16 04:12; Start 12/07/16 at 15:30; Stop 12/10/16 at 09:05 ; Status DC Albuterol Sulfate 2.5 mg 2.5 mg Q2HR NEB PRN NEB DYSPNEA; Start 12/07/16 at 15: 30 Sodium Chloride (NS 1000 ml Inj) 1,000 ml @ 84 mls/hr [id number] IV ; Start at 15:28; Stop 12/07/16 at 16:31; Status DC Sodium Chloride (NS Flush) 2 ml UNSCH PRN IV FLUSH FLUSH AFTER USING IV ACCESS Last administered on 12/12/16 11:32; Start 12/07/16 at 15:30 Sodium Chloride (NS Flush) 2 ml BID IV FLUSH Last administered on 12/15/16 09: 00; Start 12/07/16 at 21:00 Acetaminophen (Tylenol) 650 mg Q6H PRN PO PAIN 1-10 AND/OR FEVER >101F; Start 12/07/16 at 15:30 Pantoprazole Sodium (Protonix Inj) 40 mg DAILY IV Last administered on 10:12; Start 12/08/16 at 09:00 Artificial Tears (Tears Naturale Opth Soln) 1 drop TID EACH EYE Last administered on 12/15/16 13:00; Start 12/07/16 at 18:00 Miscellaneous Information 1 Q361D XX ; Start 12/07/16 at 15:30 Chlorhexidine Gluconate (Chlorhexidine 2% Cloth) Taper DAILY@04 TOP Last administered on 12/14/16 04:00; Start 12/08/16 at 04:00; Stop 12/04/17 at 03:59 Chlorhexidine Gluconate (Chlorhexidine 2% Cloth) 3 pack UNSCH PRN TOP HYGIENIC CARE; Start 12/07/16 at 15:30 Senna/Docusate Sodium (Sara-Colace) 1 tab BID PO Last administered on 10:12; Start 12/07/16 at 21:00 Magnesium Hydroxide (Milk Of Magnesia Liq) 30 ml Q12H PRN PO MILD - MODERATE CONSTIPATION; Start 12/07/16 at 15:30 Sennosides (Senokot) 17.2 mg Q12H PRN PO MODERATE - SEVERE CONSTIPATION Last administered on 12/13/16 08:21; Start 12/07/16 at 15:30 Bisacodyl (Dulcolax Supp) 10 mg DAILY PRN RECTAL SEVERE CONSITIPATION; Start at 15:30 Lactulose (Lactulose Liq) 30 ml DAILY PRN PO SEVERE CONSITIPATION Last administered on 12/13/16 08:21; Start 12/07/16 at 15:30 Etomidate (Amidate Inj) 20 mg NOW ONCE IV PUSH Last administered on 12/07/16 16:42; Start 12/07/16 at 16:00; Stop 12/07/16 at 16:01; Status DC Rocuronium [place] 50 mg 50 mg NOW ONCE IV PUSH Last administered on 16:41; Start 12/07/16 at 16:00; Stop 12/07/16 at 16:01; Status DC Sodium Bicarbonate/ Sterile Water (Sodium Bicarbonate 8.4% Inj/Sterile Water For Inj) 950 ml @ 100 mls/hr Q9H30M IV Last administered on 12/09/16 08:51; Start 12/07/16 at 18:00; Stop 12/09/16 at 12:22; Status DC Sodium Bicarbonate (Sodium Bicarbonate 8.4% Inj) 50 meq ONCE ONCE IV PUSH Last administered on 12/07/16 17:39; Start 12/07/16 at 16:30; Stop 12/07/16 at 16:59; Status DC Sodium Polystyrene Sulfonate (Kayexalate Liq) 15 gm ONCE ONCE PO Last administered on 12/07/16 19:45; Start 12/07/16 at 19:45; Stop 12/07/16 at 20:06 ; Status DC Sodium Polystyrene Sulfonate (Kayexalate Liq) 15 gm ONCE ONCE RECTAL Last administered on 12/07/16 19:45; Start 12/07/16 at 19:45; Stop 12/07/16 at 20:06 ; Status DC Dextrose (D50w (Vial) Inj) 25 ml STAT ONCE IV PUSH Last administered on 20:13; Start 12/07/16 at 19:45; Stop 12/07/16 at 20:05; Status DC Insulin Human Regular 10 units 10 units STAT ONCE IV PUSH Last administered on 12/07/16 20:14; Start 12/07/16 at 19:45; Stop 12/07/16 at 20:05; Status DC Calcium Gluconate/ Sodium Chloride (Calcium Gluconate Inj/NS Inj) 120 ml @ 120 mls/hr STAT ONCE IV Last administered on 12/07/16 19:45; Start 12/07/16 at 19 :45; Stop 12/07/16 at 20:44; Status DC Aspirin 81 mg 81 mg DAILY CHEW Last administered on 12/15/16 10:12; Start 03/16 at 12:00 Dexmedetomidine HCl 400 mcg/ Sodium Chloride 100 ml @ 0 mls/hr TITRATE IV Last administered on 12/09/16 06:18; Start 12/08/16 at 18:30; Stop 12/10/16 at 09:05 ; Status DC Calcium Gluconate/ Sodium Chloride (Calcium Gluconate Inj/NS Inj) 120 ml @ 120 mls/hr ONCE ONCE IV Last administered on 12/09/16 06:18; Start 12/09/16 at 05 :15; Stop 12/09/16 at 06:14; Status DC Bumetanide (Bumex Inj) 1 mg STK-MED ONCE .ROUTE Last administered on 12/09/16 07:21; Start 12/09/16 at 07:14; Stop 12/09/16 at 07:15; Status DC Bumetanide (Bumex Inj) 1 mg STK-MED ONCE .ROUTE Last administered on 12/09/16 07:21; Start 12/09/16 at 07:14; Stop 12/09/16 at 07:15; Status DC Bumetanide 2 mg 2 mg ONCE ONCE IV PUSH ; Start 12/09/16 at 08:00; Stop at 08:01; Status DC Sodium Chloride (NS 1000 ml Inj) 1,000 ml @ 50 mls/hr Q20H IV Last administered on 12/10/16 17:18; Start 12/09/16 at 13:00; Stop 12/11/16 at 10:28 ; Status DC Calcium Carbonate (Oscal) 500 mg Q12HR PO Last administered on 12/10/16 08:23 ; Start 12/09/16 at 21:00; Stop 12/10/16 at 12:43; Status DC Labetalol HCl (Trandate Inj) 20 mg NOW ONCE IV Last administered on 12/10/16 00:23; Start 12/10/16 at 00:15; Stop 12/10/16 at 00:16; Status DC Labetalol HCl (Trandate Inj) 20 mg Q2H PRN IV SBP > 160 Last administered on 08:05; Start 12/10/16 at 00:15 Metoprolol Tartrate 25 mg 25 mg NOW ONCE PO Last administered on 12/10/16 00: 23; Start 12/10/16 at 00:15; Stop 12/10/16 at 00:16; Status DC Calcium Gluconate/ Sodium Chloride (Calcium Gluconate Inj/NS Inj) 120 ml @ 120 mls/hr NOW ONCE IV Last administered on 12/10/16 07:31; Start 12/10/16 at 07: 00; Stop 12/10/16 at 07:59; Status DC Morphine Sulfate (Morphine Inj) 2 mg Q3H PRN IV PUSH pain, anxiety Last administered on 12/12/16 14:04; Start 12/10/16 at 09:15 Carvedilol (Coreg) 6.25 mg Q12HR PO Last administered on 12/15/16 10:12; Start 12/10/16 at 10:00 Calcium Acetate (Phoslo) 1,334 mg TID PO Last administered on 12/15/16 13:33; Start 12/10/16 at 13:00 Calcitriol (Rocaltrol) 0.5 mcg DAILY PO Last administered on 12/15/16 10:11; Start 12/10/16 at 12:45 Bumetanide 2 mg 2 mg ONCE ONCE IV PUSH Last administered on 12/11/16 11:51; Start 12/11/16 at 11:30; Stop 12/11/16 at 11:31; Status DC Calcium Gluconate/ Dextrose (Calcium Gluconate Inj/D5W 100 ml Inj) 120 ml @ 120 mls/hr ONCE ONCE IV Last administered on 12/11/16 12:17; Start 12/11/16 at 13:00; Stop 12/11/16 at 13:59; Status DC Budesonide/ Formoterol Fumarate (Symbicort 160-4.5 Inh) 1 puff Q12HR INH Last administered on 12/15/16 10:11; Start 12/11/16 at 12:00 Tiotropium [place] (Spiriva Inh) 18 mcg DAILY INH Last administered on 10:11; Start 12/11/16 at 12:00 Clonidine (Catapres) 0.2 mg Q8H PO Last administered on 12/12/16 01:00; Start 12/11/16 at 16:00; Stop 12/12/16 at 07:33; Status DC Amlodipine Besylate (Norvasc) 10 mg DAILY PO Last administered on 12/15/16 10: 12; Start 12/11/16 at 15:15 Hydralazine HCl (Apresoline Inj) 20 mg Q4H PRN IV PUSH SYS BP GREATER THAN 160 MMHG Last administered on 12/12/16 18:41; Start 12/11/16 at 15:15 Bumetanide (Bumex Inj) 3 mg ONCE ONCE IV PUSH Last administered on 12/11/16 18:09; Start 12/11/16 at 17:00; Stop 12/11/16 at 17:01; Status DC Clonidine (Catapres) 0.3 mg Q8H PO Last administered on 12/15/16 10:26; Start 12/12/16 at 08:00 Methylprednisolone Sodium Succinate 40 mg 40 mg Q12H IV PUSH Last administered on 12/15/16 10:26; Start 12/12/16 at 20:00 Sodium Chloride (NS 1000 ml Inj) 1,000 ml @ 0 mls/hr Q0M PRN IV For Prime & Rinse Back Last administered on 12/13/16 14:53; Start 12/12/16 at 12:11 Heparin Sodium (Porcine) 8000 units 8,000 units UNSCH PRN IVF WITH DIALYSIS; Start 12/12/16 at 12:15 Sodium Chloride 1,000 ml @ 200 mls/hr Q5H PRN IV WITH DIALYSIS; Start 12/12/16 at 12:11 Sodium Chloride (NS 1000 ml Inj) 1,000 ml @ 0 mls/hr Q0M PRN IV WITH DIALYSIS Last administered on 12/12/16 17:04; Start 12/12/16 at 12:11 Mannitol (Mannitol Inj) 12.5 gm UNSCH PRN IV WITH DIALYSIS; Start 12/12/16 at 12:15 Albumin Human (Albumin 25% Inj) 25 gm UNSCH PRN IV WITH DIALYSIS; Start at 12:15 Sodium Chloride (NS Flush) 5 ml UNSCH PRN IV FLUSH WITH DIALYSIS; Start at 12:15 Heparin Sodium (Porcine) (Heparin Inj) UNSCH PRN .XX WITH DIALYSIS Last administered on 12/13/16 14:53; Start 12/12/16 at 12:15 Gentamicin Sulfate (Gentamicin (Dialysis) Inj) 20 mg UNSCH PRN IV WITH DIALYSIS Last administered on 12/13/16 14:54; Start 12/12/16 at 12:15 Ondansetron HCl (Zofran Inj) 4 mg UNSCH PRN IV WITH DIALYSIS; Start 12/12/16 at 12:15 Acetaminophen (Tylenol) 650 mg UNSCH PRN PO for headach, pain, temp > 101F; Start 12/12/16 at 12:15 Diphenhydramine HCl (Benadryl) 25 mg UNSCH PRN PO for hives/itching/anaphylaxis ; Start 12/12/16 at 12:15 Nitroglycerin (Nitrostat Sl) 0.4 mg UNSCH PRN SL CHEST PAIN; Start 12/12/16 at 12:15 Clonidine (Catapres) 0.1 mg UNSCH PRN PO for BP > 180/100 X 2 readings; Start 12/12/16 at 12:15 Epoetin Abe (Epogen Inj) 10,000 units UNSCH PRN IV WITH DIALYSIS; Start at 12:15 Gelatin (Gelfoam 12 Mm/7 Mm Top) 1 foam UNSCH PRN TOP SEE LABEL COMMENTS; Start 12/12/16 at 12:15 Lorazepam (Ativan Inj) 2 mg STK-MED ONCE .ROUTE ; Start 12/12/16 at 14:17; Stop 12/12/16 at 14:18; Status DC Lorazepam (Ativan Inj) 2 mg NOW ONCE IV PUSH Last administered on 12/12/16t 14 :59; Start 12/12/16 at 14:45; Stop 12/12/16 at 14:59; Status DC Warfarin Sodium 4 mg 4 mg DAILY@16 PO Last administered on 12/14/16t 16:16; Start 12/13/16 at 16:00 Pharmacy Profile Note (Coumadin Consult Pharmacy) 0 ml @ 0 mls/hr UNSCH OTHER ; Start 12/13/16 at 12:00 Patient Medication Teaching (Coumadin Booklet) 1 ONCE ONCE .XX ; Start at 16:00; Stop 12/15/16 at 16:01 A/P Problem List: (1) Respiratory failure ICD Code: J96.90 Status: Acute (2) Sepsis ICD Code: A41.9 Status: Acute (3) Pneumonia ICD Code: J18.9 Status: Acute (4) left atrial thrombus Status: Acute (5) NSTEMI (non-ST elevated myocardial infarction) ICD Code: I21.4 Status: Resolved (6) ARF (acute renal failure) ICD Code: N17.9 Status: Acute (7) Diabetes mellitus ICD Code: E11.9 Status: Chronic (8) Morbid obesity ICD Code: E66.01 Status: Acute (9) Severe chronic obstructive pulmonary disease ICD Code: J44.9 Status: Acute (10) CKD (chronic kidney disease) stage 4, GFR 15-29 ml/min ICD Code: N18.4 Status: Acute Assessment and Plan 66yM with acute bibasilar community acquired pneumonia, sepsis, acute kidney injury, acute hypoxic respiratory failure, multi-organ system failure, NSTEMI. critically ill Acute hypoxic respiratory failure-resolved COPD exacerbation Bilateral lower lobe pneumonias/community acquired Bilateral small effusions Extubated 12/09, tolerating well Solu-Medrol 40 mg q12 Antibiotics as below Nebs, EzPAP, Acapella --CT chest 12/08: Dense bibasilar consolidation left more than right, moderate left effusion --Broad-spectrum antibiotics as below --Symbicort and Spiriva -Clinically improving. NSTEMI LA thrombus Severe sepsis -- Continue heparin drip bridging to coumadin. Pharmacy consultation managing. -- ASA 81 mg daily. Coreg 6.25 mg BID. Norvasc 10 mg daily. Clonidine to 0.3 mg po TID -- Cardiology -Dr Quadrat. Echo Mildly dilated left ventricle. LVEF 45-50%. There is distinct regional WMA with akinetic apex and possibly clot at the apex. - Biatrial moderate dilatation -- Repeat echo study with contrast/Definity to better asses apex-defer to cardiology New severe acute kidney injury Chronic kidney disease -- Nephrology started HD 12/12/16. -- BUN/creatinine remains high but improving with HD -- Renal ultrasound-normal -- Strict I/Os FEN/GI: Daily BMP Patient now on diabetic diet. Community acquired bilateral lower lobe pneumonia Severe sepsis on Rocephin and azithromycin. Respiratory cultures negative. Will switch to oral Levaquin. [place] culture follow up-neg to date Daily CBC -- Received 2 units PRBC 12/08 transfusion for hemoglobin drop to 6.6 from 7.7. -- Hb stable now Type 2 diabetes -- SSI Prophylaxis: GI Prophylaxis Protonix DVT Prophylaxis -- SCDs Heparin drip. Started on Coumadin, pharmacy to dose Problem Qualifiers (1) Sepsis: Qualified Code: A41.9 - Sepsis, due to unspecified organism (2) Pneumonia: Qualified Code: J18.9 - Pneumonia of both lower lobes due to infectious organism (3) ARF (acute renal failure): Qualified Code: N17.9 - Acute renal failure, unspecified acute renal failure type (4) Diabetes mellitus: April Gao MD Dec 15, 2016 13:53 April Gao MD Dec 15, 2016 13:53
--- NOTE | 2016-12-15 16:57 | HHI.NPPN ---
Subjective History of Present Illness 66-year-old male with past medical history of hypertension, diabetes mellitus, history of cerebrovascular accident with left-sided weakness, hyperlipidemia, bronchial asthma, chronic kidney disease who was admitted because of shortness of breath and chest pain. I was called to see the patient because of elevated BUN and creatinine. The patient was diagnosed here with non-ST elevation CA. The patient has history of chronic kidney disease. Additional Remarks Patient is alert, breathing is better, with nasal cannula. Objective Data Data 12/14/16 12/15/16 19:00 07:00 Intake Total 1161 ml 1083 ml Output Total 4525 ml 700 ml Balance -3364 ml 383 ml Intake Oral 300 ml 960 ml IV Total 517 ml 123 ml Tube Feeding 244 ml Tube Irrigant 100 ml Output Urine Total 525 ml 700 ml Hemodialysis 4000 ml # Bowel Movements 0 Vital Signs Date Time Temp Pulse Resp B/P Pulse Ox O2 Delivery O2 Flow Rate FiO2 12/15/16 16:21 72 12/15/16 14:06 72 12/15/16 12:24 67 12/15/16 12:00 98.4 80 20 164/78 97 12/15/16 10:46 69 12/15/16 10:19 97 21 12/15/16 08:10 78 12/15/16 08:10 Room Air 12/15/16 08:00 98.2 70 18 162/77 95 12/15/16 04:00 97.9 65 18 157/82 97 12/15/16 04:00 Room Air 12/15/16 00:00 Room Air 12/15/16 00:00 97.7 66 18 154/82 97 12/14/16 20:00 Room Air 12/14/16 20:00 97.7 62 18 143/72 98 12/14/16 20:00 64 -: 12/15/16 0804 12/15/16 0804 Physical Exam General Appearance: No Acute Distress, Comfortable Eyes Eye Exam: Pupils Equal Throat Throat Exam: Oral Mucosa [place] & Moist Neck Neck Exam: Neck Supple Pulmonary Resp Exam: No Distress, Rhonchi, Decreased Bases, Diminished Breath Sounds Cardiology CV Exam: Regular, Normal Sinus Rhythm Gastrointestinal/Abdomen GI Exam: Soft, Non-Tender, Bowel Sounds Present Extremeties Extremities Exam: Moderate Edema Neurologic Neuro Exam: Alert, Awake Psychiatric Psych Exam: Appropriate Responses Assessment/Plan Assessment Summary: WILLIE/Acute Renal Failure, CHF, CKD Stage IV Problem List: (1) NSTEMI (non-ST elevated myocardial infarction) (2) Diabetes mellitus (3) Asthma (4) Shortness of breath (5) Leg edema (6) Hypertension (7) CKD (chronic kidney disease) stage 4, GFR 15-29 ml/min (8) ARF (acute renal failure) Plan Patient has been non oliguric, Creatinine is still above 7. K is normal, Hco3 is normal now. Follow urine out put and BMP. May will need HD if no improvement. Has proteinuria, serology pending. Added Phoslo as Po4 is elevated and calcitriol as Calcium is low. BP is still elevated , will follow. HD to continue as needed, Follow urine out put and watch for any renal recovery. Problem Qualifiers (1) Diabetes mellitus: (2) Hypertension: Qualified Codes: I10 - Essential (primary) hypertension (3) ARF (acute renal failure): Zoey Carbone MD Dec 15, 2016 16:57
[2016-12-15] MEDS: WARFARIN SOD 4 MG TAB PO SCH (16:59)
[2016-12-15] MEDS: LACTULOSE SYRUP 20 GM/30 ML CUP PO PRN (21:38)
[2016-12-16] VITALS (9 sets, daily range): BP systolic 165–201; BP diastolic 78–88; PULSE 67–78; RESP 16–20; TEMP 97.9–99.2; O2SAT 94–96
[2016-12-16] MEDS: INSULIN NovoLIN REGULAR SUPPLEMENTAL SCALE SQ SCH ×4 (00:19→18:36)
[2016-12-16] MEDS: CHLORHEXIDINE GLUCONATE 2 % 1 PACK (2 CLOTHS) TOP SCH (00:27)
[2016-12-16] MEDS: cloNIDine HCL 0.3 MG TAB PO SCH ×2 (08:00→16:46)
[2016-12-16] MEDS: methylPREDNISolone SOD SUCC 40 MG/1 ML VIAL IV PUSH SCH (08:21)
[2016-12-16] MEDS: CALCIUM ACETATE 667 MG CAP PO SCH ×3 (09:00→18:28)
[2016-12-16] MEDS: ASPIRIN 81 MG CHEW TAB CHEW SCH (09:00)
[2016-12-16] MEDS: DOCUSATE SODIUM 50 MG/SENNA 8.6 MG TAB PO SCH ×2 (09:00→20:41)
[2016-12-16] MEDS: ARTIFICIAL TEARS OPTH SOLN 15 ML BTL EACH EYE SCH ×3 (09:00→18:40)
[2016-12-16] MEDS: SODIUM CHLORIDE 0.9% FLUSH 10 ML FLUSH IVF SCH (09:00)
--- NOTE | 2016-12-16 10:11 | HHI.NPPN ---
Subjective History of Present Illness 66-year-old male with past medical history of hypertension, diabetes mellitus, history of cerebrovascular accident with left-sided weakness, hyperlipidemia, bronchial asthma, chronic kidney disease who was admitted because of shortness of breath and chest pain. I was called to see the patient because of elevated BUN and creatinine. The patient was diagnosed here with non-ST elevation MS. The patient has history of chronic kidney disease. Additional Remarks Patient seen on HD, reports no acute complaints, breathing improving Objective Data Data 12/15/16 12/16/16 19:00 07:00 Intake Total 0 ml 140 ml Output Total 600 ml Balance 0 ml -460 ml Intake Oral 140 ml IV Total 0 ml Output Urine Total 600 ml Vital Signs Date Time Temp Pulse Resp B/P Pulse Ox O2 Delivery O2 Flow Rate FiO2 12/16/16 08:00 Room Air 12/16/16 08:00 98.5 68 20 165/79 96 12/16/16 06:32 78 12/16/16 04:00 99.2 70 16 167/79 96 12/16/16 00:00 97.9 76 16 171/82 94 12/15/16 21:00 Room Air 12/15/16 20:00 73 12/15/16 20:00 98.4 72 16 159/75 95 12/15/16 18:11 74 12/15/16 17:42 95 21 12/15/16 16:21 72 12/15/16 16:00 98.7 83 20 154/68 95 12/15/16 14:06 72 12/15/16 12:24 67 12/15/16 12:00 98.4 80 20 164/78 97 12/15/16 10:46 69 12/15/16 10:19 97 21 -: 12/15/16 0804 12/15/16 0804 Physical Exam General Appearance: No Acute Distress, Comfortable Eyes Eye Exam: Pupils Equal Throat Throat Exam: Oral Mucosa [place] & Moist Neck Neck Exam: Neck Supple Pulmonary Resp Exam: No Distress, Rhonchi, Decreased Bases, Diminished Breath Sounds Cardiology CV Exam: Regular, Normal Sinus Rhythm Gastrointestinal/Abdomen GI Exam: Soft, Non-Tender, Bowel Sounds Present Extremeties Extremities Exam: Moderate Edema Neurologic Neuro Exam: Alert, Awake Psychiatric Psych Exam: Appropriate Responses Assessment/Plan Assessment Summary: WILLIE/Acute Renal Failure, CHF, CKD Stage IV Problem List: (1) NSTEMI (non-ST elevated myocardial infarction) (2) Diabetes mellitus (3) Asthma (4) Shortness of breath (5) Leg edema (6) Hypertension (7) CKD (chronic kidney disease) stage 4, GFR 15-29 ml/min (8) ARF (acute renal failure) Plan Seen on HD today, tolerating HD well. Goal 3L UF today. UOP 600cc yesterday, continue to monitor for signs of renal recovery. Will plan for next HD Sunday, with UF as tolerated. Has proteinuria, serology pending. On phoslo, calcitriol. BP is still on higher side, follow post HD. Problem Qualifiers (1) Diabetes mellitus: (2) ARF (acute renal failure): Qualified Code: N17.9 - Acute renal failure, unspecified acute renal failure type Reed Prescott MD Dec 16, 2016 10:11
[2016-12-16] MEDS: GENTAMICIN SULFATE (DIALYSIS USE ONLY) 20 MG/2 ML VIAL IV PRN (11:40)
[2016-12-16] MEDS: SODIUM CHLOR 0.9% 1000 ML INJ 1,000 ML IV PRN (11:40)
[2016-12-16] MEDS: HEPARIN SODIUM - IV 10,000 UNITS/10 ML VIAL PRN (11:40)
[2016-12-16] MEDS: EPOETIN ALFA 10,000 UNITS/ML VIAL IV PRN (11:40)
[2016-12-16] MEDS: CARVEDILOL 6.25 MG TAB PO SCH ×2 (13:55→20:40)
[2016-12-16] MEDS: CALCITRIOL 0.25 MCG CAP PO SCH (13:55)
[2016-12-16] MEDS: PANTOPRAZOLE SODIUM 40 MG VIAL IV SCH (14:45)
[2016-12-16] MEDS: TIOTROPIUM BROMIDE 18 MCG INH INH SCH (14:47)
[2016-12-16] MEDS: BUDESONIDE-FORMOTEROL 160/4.5 MCG INHALER INH SCH ×2 (14:47→20:41)
--- NOTE | 2016-12-16 15:07 | HHI.PR ---
Subjective Remarks Follow-up for acute renal failure Patient seen after dialysis. He stated that he is hungry. Denied any pain or shortness of breathing. He has no other concerns. Dealt with patient's nurse at the bedside. Objective Vitals Vital Signs Date Time Temp Pulse Resp B/P Pulse Ox O2 Delivery O2 Flow Rate FiO2 12/16/16 12:00 98.7 73 20 201/88 95 12/16/16 08:00 Room Air 12/16/16 08:00 98.5 68 20 165/79 96 12/16/16 06:32 78 12/16/16 04:00 99.2 70 16 167/79 96 12/16/16 00:00 97.9 76 16 171/82 94 12/15/16 21:00 Room Air 12/15/16 20:00 73 12/15/16 20:00 98.4 72 16 159/75 95 12/15/16 18:11 74 12/15/16 17:42 95 21 12/15/16 16:21 72 12/15/16 16:00 98.7 83 20 154/68 95 I/O 12/15/16 12/15/16 12/15/16 12/16/16 12/16/16 12/16/16 07:00 15:00 23:00 07:00 15:00 23:00 Intake Total 603 ml 0 ml 140 ml Output Total 400 ml 600 ml 3000 ml Balance 203 ml 0 ml -460 ml -3000 ml Intake Oral 480 ml 140 ml IV Total 123 ml 0 ml Output Urine Total 400 ml 600 ml Hemodialysis 3000 ml # Bowel Movements 0 Result Diagram: 12/15/16 0804 12/15/16 0804 Imaging Last Impressions Chest X-Ray 12/13/16 0600 Signed Impressions: Service Date/Time: Tuesday, December 13, 2016 04:54 - CONCLUSION: Persistent lobar consolidation left lower lung. Jose Roberto Cheema MD Chest CT 12/08/16 0000 Signed Impressions: Service Date/Time: Thursday, December 08, 2016 14:02 - CONCLUSION: 1. Bilateral lower lobe consolidating airspace disease. 2. Small to moderate bilateral pleural effusions; larger on the left. 3. Cardiomegaly. 4. Endotracheal and nasogastric tubes in good position. Tutu Christianson MD Renal Ultrasound 12/07/16 0000 Signed Impressions: Service Date/Time: November 07:54 - CONCLUSION: Unremarkable and stable bilateral renal ultrasound. No evidence of hydronephrosis. Baron Medrano MD Objective Remarks GENERAL: Obese middle-aged male, in mild discomfort HEENT: Normocephalic. Atraumatic. Pupils equal, round, reactive, conjugate. NECK: Trachea is midline. There is no JVD. CHEST: Clear to auscultation bilaterally CARDIOVASCULAR: S1-S2 normal no murmurs, regular rhythm ABDOMEN: Soft, nontender, nondistended. No guarding. MUSCULOSKELETAL: Pulses 2+. No peripheral edema. NEUROLOGICAL: Alert awake. Serbian speaking. Follows commands, non focal exam Medications and IVs Current Medications Sodium Chloride (NS Flush) 2 ml UNSCH PRN IVF FLUSH AFTER USING IV ACCESS Last administered on 12/07/16 08:58; Start 12/06/16 at 23:30; Stop 12/07/16 at 16:07 ; Status DC Furosemide (Lasix Inj) 40 mg ONCE ONCE IVP Last administered on 12/06/16 23:37 ; Start 12/06/16 at 23:30; Stop 12/06/16 at 23:31; Status DC Methylprednisolone Sodium Succinate (SoluMEDROL INJ) 125 mg ONCE ONCE IVP Last administered on 12/06/16 23:38; Start 12/06/16 at 23:30; Stop 12/06/16 at 23: 31; Status DC Albuterol/ Ipratropium 1 ampule 1 ampule Q15M INH Last administered on 23:40; Start 12/06/16 at 23:30; Stop 12/07/16 at 00:01; Status DC Ceftriaxone Sodium 1000 mg/ Sodium Chloride 100 ml @ 200 mls/hr ONCE ONCE IV Last administered on 12/07/16 00:08; Start 12/07/16 at 00:00; Stop 12/07/16 at 00:29; Status DC Azithromycin/ Sodium Chloride (Zithromax Inj/ NS 250 ml Inj) 250 ml @ 250 mls/ hr ONCE ONCE IV Last administered on 12/07/16 00:23; Start 12/07/16 at 00:00 ; Stop 12/07/16 at 00:59; Status DC Acetaminophen 650 mg 650 mg ONCE ONCE RECTAL Last administered on 12/07/16 00 :23; Start 12/07/16 at 00:15; Stop 12/07/16 at 00:16; Status DC Sodium Chloride 1,000 ml @ 125 mls/hr Q8H IV Last administered on 12/07/16 00 :23; Start 12/07/16 at 00:01; Stop 12/07/16 at 01:52; Status DC Sodium Chloride (NS 1000 ml Inj) 1,000 ml @ 999 mls/hr BOLUS ONCE IV Last administered on 12/07/16 00:42; Start 12/07/16 at 00:30; Stop 12/07/16 at 01:30 ; Status DC Dextrose (D50w (Vial) Inj) 25 ml UNSCH PRN IV PUSH HYPOGLYCEMIA-SEE COMMENTS; Start 12/07/16 at 00:45 Insulin Human Regular (NovoLIN R SUPPLEMENTAL SCALE) 1 Q6HR SQ Last administered on 12/16/16 06:27; Start 12/07/16 at 06:00 Albuterol/ Ipratropium (Duoneb Neb) 1 ampule Q6HR NEB INH Last administered on 12/14/16 03:30; Start 12/07/16 at 04:00; Stop 12/14/16 at 09:04; Status DC Albuterol/ Ipratropium (Duoneb Neb) 1 ampule Q2HR NEB PRN INH WHEEZING; Start 12/07/16 at 00:45; Stop 12/07/16 at 15:28; Status DC Ondansetron HCl (Zofran Inj) 4 mg Q6H PRN IV NAUSEA OR VOMITING; Start at 00:45 Miscellaneous Information 1 Q361D XX ; Start 12/07/16 at 00:45; Stop 12/09/16 at 12:49; Status DC Chlorhexidine Gluconate (Chlorhexidine 2% Cloth) 3 pack Taper DAILY@04 TOP Last administered on 12/09/16 04:00; Start 12/07/16 at 04:00; Stop 12/09/16 at 12:49; Status DC Chlorhexidine Gluconate 3 pack 3 pack UNSCH PRN TOP HYGIENIC CARE; Start at 00:45; Stop 12/09/16 at 12:50; Status DC Sodium Chloride (NS 1000 ml Inj) 1,000 ml @ 100 mls/hr Q10H IV Last administered on 12/07/16 11:45; Start 12/07/16 at 01:45; Stop 12/07/16 at 16:08 ; Status DC Methylprednisolone Sodium Succinate 60 mg 60 mg Q12HR IV PUSH Last administered on 12/12/16 07:53; Start 12/07/16 at 09:00; Stop 12/12/16 at 08:03 ; Status DC Azithromycin 500 mg/Sodium Chloride 250 ml @ 250 mls/hr Q24H IV Last administered on 12/14/16 08:20; Start 12/08/16 at 09:00; Stop 12/15/16 at 08:59 ; Status DC Ceftriaxone Sodium 1000 mg/ Sodium Chloride 100 ml @ 200 mls/hr Q24H IV Last administered on 12/14/16 08:20; Start 12/08/16 at 09:00; Stop 12/15/16 at 08:59 ; Status DC Heparin Sodium/ Dextrose (Heparin-D5W Inj) 250 ml @ 0 mls/hr TITRATE IV Last administered on 12/15/16 00:51; Start 12/07/16 at 01:45 Chlorhexidine Gluconate (Peridex 0.12% Liq) 15 ml BID@08,20 MT Last administered on 12/09/16 08:50; Start 12/07/16 at 20:00; Stop 12/09/16 at 12:50 ; Status DC Etomidate (Amidate Inj) 40 mg ONCE ONCE IV PUSH ; Start 12/07/16 at 14:45; Stop 12/07/16 at 14:46; Status Cancel Rocuronium [place] (Zemuron Inj) 100 mg BOLUS ONCE IV ; Start 12/07/16 at 14:45 ; Stop 12/07/16 at 14:46; Status Cancel Etomidate (Amidate Inj) 20 mg STK-MED ONCE .ROUTE ; Start 12/07/16 at 13:23; Stop 12/07/16 at 13:24; Status DC Rocuronium [place] (Zemuron Inj) 50 mg STK-MED ONCE .ROUTE ; Start 12/07/16 at 13:24; Stop 12/07/16 at 13:25; Status DC Rocuronium [place] 50 mg 50 mg STK-MED ONCE .ROUTE ; Start 12/07/16 at 13:41; Stop 12/07/16 at 13:42; Status DC Propofol (Diprivan 1000 Mg/100ml Inj) 100 ml @ As Directed STK-MED ONCE .ROUTE ; Start 12/07/16 at 13:43; Stop 12/07/16 at 13:44; Status DC Sodium Chloride (NS Flush) DAILY IVF Last administered on 12/15/16 09:00; Start 12/07/16 at 15:30 Sodium Chloride (NS Flush) UNSCH PRN IVF SEE PROTOCOL; Start 12/07/16 at 15:30 Chlorhexidine Gluconate 15 ml 15 ml BID@08,20 MT Last administered on 20:00; Start 12/07/16 at 20:00 Propofol 100 ml @ 0 mls/hr TITRATE IV Last administered on 12/08/16 17:52; Start 12/07/16 at 15:30; Stop 12/10/16 at 09:05; Status DC Fentanyl Citrate (fentaNYL DRIP) 250 ml @ 0 mls/hr TITRATE IV Last administered on 12/08/16 04:12; Start 12/07/16 at 15:30; Stop 12/10/16 at 09:05 ; Status DC Albuterol Sulfate 2.5 mg 2.5 mg Q2HR NEB PRN NEB DYSPNEA; Start 12/07/16 at 15: 30 Sodium Chloride (NS 1000 ml Inj) 1,000 ml @ 84 mls/hr [id number] IV ; Start at 15:28; Stop 12/07/16 at 16:31; Status DC Sodium Chloride (NS Flush) 2 ml UNSCH PRN IV FLUSH FLUSH AFTER USING IV ACCESS Last administered on 12/12/16 11:32; Start 12/07/16 at 15:30 Sodium Chloride (NS Flush) 2 ml BID IV FLUSH Last administered on 12/15/16 21: 41; Start 12/07/16 at 21:00 Acetaminophen (Tylenol) 650 mg Q6H PRN PO PAIN 1-10 AND/OR FEVER >101F; Start 12/07/16 at 15:30 Pantoprazole Sodium (Protonix Inj) 40 mg DAILY IV Last administered on 14:45; Start 12/08/16 at 09:00 Artificial Tears (Tears Naturale Opth Soln) 1 drop TID EACH EYE Last administered on 12/16/16 14:47; Start 12/07/16 at 18:00 Miscellaneous Information 1 Q361D XX ; Start 12/07/16 at 15:30 Chlorhexidine Gluconate (Chlorhexidine 2% Cloth) Taper DAILY@04 TOP Last administered on 12/14/16 04:00; Start 12/08/16 at 04:00; Stop 12/04/17 at 03:59 Chlorhexidine Gluconate (Chlorhexidine 2% Cloth) 3 pack UNSCH PRN TOP HYGIENIC CARE; Start 12/07/16 at 15:30 Senna/Docusate Sodium (Sara-Colace) 1 tab BID PO Last administered on 21:39; Start 12/07/16 at 21:00 Magnesium Hydroxide (Milk Of Magnesia Liq) 30 ml Q12H PRN PO MILD - MODERATE CONSTIPATION; Start 12/07/16 at 15:30 Sennosides (Senokot) 17.2 mg Q12H PRN PO MODERATE - SEVERE CONSTIPATION Last administered on 12/13/16 08:21; Start 12/07/16 at 15:30 Bisacodyl (Dulcolax Supp) 10 mg DAILY PRN RECTAL SEVERE CONSITIPATION; Start at 15:30 Lactulose (Lactulose Liq) 30 ml DAILY PRN PO SEVERE CONSITIPATION Last administered on 12/15/16 21:38; Start 12/07/16 at 15:30 Etomidate (Amidate Inj) 20 mg NOW ONCE IV PUSH Last administered on 12/07/16 16:42; Start 12/07/16 at 16:00; Stop 12/07/16 at 16:01; Status DC Rocuronium [place] 50 mg 50 mg NOW ONCE IV PUSH Last administered on 16:41; Start 12/07/16 at 16:00; Stop 12/07/16 at 16:01; Status DC Sodium Bicarbonate/ Sterile Water (Sodium Bicarbonate 8.4% Inj/Sterile Water For Inj) 950 ml @ 100 mls/hr Q9H30M IV Last administered on 12/09/16 08:51; Start 12/07/16 at 18:00; Stop 12/09/16 at 12:22; Status DC Sodium Bicarbonate (Sodium Bicarbonate 8.4% Inj) 50 meq ONCE ONCE IV PUSH Last administered on 12/07/16 17:39; Start 12/07/16 at 16:30; Stop 12/07/16 at 16:59; Status DC Sodium Polystyrene Sulfonate (Kayexalate Liq) 15 gm ONCE ONCE PO Last administered on 12/07/16 19:45; Start 12/07/16 at 19:45; Stop 12/07/16 at 20:06 ; Status DC Sodium Polystyrene Sulfonate (Kayexalate Liq) 15 gm ONCE ONCE RECTAL Last administered on 12/07/16 19:45; Start 12/07/16 at 19:45; Stop 12/07/16 at 20:06 ; Status DC Dextrose (D50w (Vial) Inj) 25 ml STAT ONCE IV PUSH Last administered on 20:13; Start 12/07/16 at 19:45; Stop 12/07/16 at 20:05; Status DC Insulin Human Regular 10 units 10 units STAT ONCE IV PUSH Last administered on 12/07/16 20:14; Start 12/07/16 at 19:45; Stop 12/07/16 at 20:05; Status DC Calcium Gluconate/ Sodium Chloride (Calcium Gluconate Inj/NS Inj) 120 ml @ 120 mls/hr STAT ONCE IV Last administered on 12/07/16 19:45; Start 12/07/16 at 19 :45; Stop 12/07/16 at 20:44; Status DC Aspirin 81 mg 81 mg DAILY CHEW Last administered on 12/15/16 10:12; Start 03/16 at 12:00 Dexmedetomidine HCl 400 mcg/ Sodium Chloride 100 ml @ 0 mls/hr TITRATE IV Last administered on 12/09/16 06:18; Start 12/08/16 at 18:30; Stop 12/10/16 at 09:05 ; Status DC Calcium Gluconate/ Sodium Chloride (Calcium Gluconate Inj/NS Inj) 120 ml @ 120 mls/hr ONCE ONCE IV Last administered on 12/09/16 06:18; Start 12/09/16 at 05 :15; Stop 12/09/16 at 06:14; Status DC Bumetanide (Bumex Inj) 1 mg STK-MED ONCE .ROUTE Last administered on 12/09/16 07:21; Start 12/09/16 at 07:14; Stop 12/09/16 at 07:15; Status DC Bumetanide (Bumex Inj) 1 mg STK-MED ONCE .ROUTE Last administered on 12/09/16 07:21; Start 12/09/16 at 07:14; Stop 12/09/16 at 07:15; Status DC Bumetanide 2 mg 2 mg ONCE ONCE IV PUSH ; Start 12/09/16 at 08:00; Stop at 08:01; Status DC Sodium Chloride (NS 1000 ml Inj) 1,000 ml @ 50 mls/hr Q20H IV Last administered on 12/10/16 17:18; Start 12/09/16 at 13:00; Stop 12/11/16 at 10:28 ; Status DC Calcium Carbonate (Oscal) 500 mg Q12HR PO Last administered on 12/10/16 08:23 ; Start 12/09/16 at 21:00; Stop 12/10/16 at 12:43; Status DC Labetalol HCl (Trandate Inj) 20 mg NOW ONCE IV Last administered on 12/10/16 00:23; Start 12/10/16 at 00:15; Stop 12/10/16 at 00:16; Status DC Labetalol HCl (Trandate Inj) 20 mg Q2H PRN IV SBP > 160 Last administered on 08:05; Start 12/10/16 at 00:15 Metoprolol Tartrate 25 mg 25 mg NOW ONCE PO Last administered on 12/10/16 00: 23; Start 12/10/16 at 00:15; Stop 12/10/16 at 00:16; Status DC Calcium Gluconate/ Sodium Chloride (Calcium Gluconate Inj/NS Inj) 120 ml @ 120 mls/hr NOW ONCE IV Last administered on 12/10/16 07:31; Start 12/10/16 at 07: 00; Stop 12/10/16 at 07:59; Status DC Morphine Sulfate (Morphine Inj) 2 mg Q3H PRN IV PUSH pain, anxiety Last administered on 12/12/16 14:04; Start 12/10/16 at 09:15 Carvedilol (Coreg) 6.25 mg Q12HR PO Last administered on 12/16/16 13:55; Start 12/10/16 at 10:00 Calcium Acetate (Phoslo) 1,334 mg TID PO Last administered on 12/16/16 13:55; Start 12/10/16 at 13:00 Calcitriol (Rocaltrol) 0.5 mcg DAILY PO Last administered on 12/16/16 13:55; Start 12/10/16 at 12:45 Bumetanide 2 mg 2 mg ONCE ONCE IV PUSH Last administered on 12/11/16 11:51; Start 12/11/16 at 11:30; Stop 12/11/16 at 11:31; Status DC Calcium Gluconate/ Dextrose (Calcium Gluconate Inj/D5W 100 ml Inj) 120 ml @ 120 mls/hr ONCE ONCE IV Last administered on 12/11/16 12:17; Start 12/11/16 at 13:00; Stop 12/11/16 at 13:59; Status DC Budesonide/ Formoterol Fumarate (Symbicort 160-4.5 Inh) 1 puff Q12HR INH Last administered on 12/16/16 14:47; Start 12/11/16 at 12:00 Tiotropium [place] (Spiriva Inh) 18 mcg DAILY INH Last administered on 14:47; Start 12/11/16 at 12:00 Clonidine (Catapres) 0.2 mg Q8H PO Last administered on 12/12/16 01:00; Start 12/11/16 at 16:00; Stop 12/12/16 at 07:33; Status DC Amlodipine Besylate (Norvasc) 10 mg DAILY PO Last administered on 12/16/16 13: 55; Start 12/11/16 at 15:15 Hydralazine HCl (Apresoline Inj) 20 mg Q4H PRN IV PUSH SYS BP GREATER THAN 160 MMHG Last administered on 12/12/16 18:41; Start 12/11/16 at 15:15 Bumetanide (Bumex Inj) 3 mg ONCE ONCE IV PUSH Last administered on 12/11/16 18:09; Start 12/11/16 at 17:00; Stop 12/11/16 at 17:01; Status DC Clonidine (Catapres) 0.3 mg Q8H PO Last administered on 12/15/16 23:54; Start 12/12/16 at 08:00 Methylprednisolone Sodium Succinate 40 mg 40 mg Q12H IV PUSH Last administered on 12/16/16 08:21; Start 12/12/16 at 20:00 Sodium Chloride (NS 1000 ml Inj) 1,000 ml @ 0 mls/hr Q0M PRN IV For Prime & Rinse Back Last administered on 12/16/16 11:40; Start 12/12/16 at 12:11 Heparin Sodium (Porcine) 8000 units 8,000 units UNSCH PRN IVF WITH DIALYSIS; Start 12/12/16 at 12:15 Sodium Chloride 1,000 ml @ 200 mls/hr Q5H PRN IV WITH DIALYSIS; Start 12/12/16 at 12:11 Sodium Chloride (NS 1000 ml Inj) 1,000 ml @ 0 mls/hr Q0M PRN IV WITH DIALYSIS Last administered on 12/12/16 17:04; Start 12/12/16 at 12:11 Mannitol (Mannitol Inj) 12.5 gm UNSCH PRN IV WITH DIALYSIS; Start 12/12/16 at 12:15 Albumin Human (Albumin 25% Inj) 25 gm UNSCH PRN IV WITH DIALYSIS; Start at 12:15 Sodium Chloride (NS Flush) 5 ml UNSCH PRN IV FLUSH WITH DIALYSIS; Start at 12:15 Heparin Sodium (Porcine) (Heparin Inj) UNSCH PRN .XX WITH DIALYSIS Last administered on 12/16/16 11:40; Start 12/12/16 at 12:15 Gentamicin Sulfate (Gentamicin (Dialysis) Inj) 20 mg UNSCH PRN IV WITH DIALYSIS Last administered on 12/16/16 11:40; Start 12/12/16 at 12:15 Ondansetron HCl (Zofran Inj) 4 mg UNSCH PRN IV WITH DIALYSIS; Start 12/12/16 at 12:15 Acetaminophen (Tylenol) 650 mg UNSCH PRN PO for headach, pain, temp > 101F; Start 12/12/16 at 12:15 Diphenhydramine HCl (Benadryl) 25 mg UNSCH PRN PO for hives/itching/anaphylaxis ; Start 12/12/16 at 12:15 Nitroglycerin (Nitrostat Sl) 0.4 mg UNSCH PRN SL CHEST PAIN; Start 12/12/16 at 12:15 Clonidine (Catapres) 0.1 mg UNSCH PRN PO for BP > 180/100 X 2 readings; Start 12/12/16 at 12:15 Epoetin Abe (Epogen Inj) 10,000 units UNSCH PRN IV WITH DIALYSIS Last administered on 12/16/16 11:40; Start 12/12/16 at 12:15 Gelatin (Gelfoam 12 Mm/7 Mm Top) 1 foam UNSCH PRN TOP SEE LABEL COMMENTS; Start 12/12/16 at 12:15 Lorazepam (Ativan Inj) 2 mg STK-MED ONCE .ROUTE ; Start 12/12/16 at 14:17; Stop 12/12/16 at 14:18; Status DC Lorazepam (Ativan Inj) 2 mg NOW ONCE IV PUSH Last administered on 12/12/16 14 :59; Start 12/12/16 at 14:45; Stop 12/12/16 at 14:59; Status DC Warfarin Sodium 4 mg 4 mg DAILY@16 PO Last administered on 12/15/16 16:59; Start 12/13/16 at 16:00 Pharmacy Profile Note (Coumadin Consult Pharmacy) 0 ml @ 0 mls/hr UNSCH OTHER ; Start 12/13/16 at 12:00 Patient Medication Teaching (Coumadin Booklet) 1 ONCE ONCE .XX Last administered on 12/15/16 17:00; Start 12/15/16 at 16:00; Stop 12/15/16 at 16:01 ; Status DC A/P Problem List: (1) Respiratory failure ICD Code: J96.90 Status: Acute (2) Sepsis ICD Code: A41.9 Status: Acute (3) Pneumonia ICD Code: J18.9 Status: Acute (4) left atrial thrombus Status: Acute (5) NSTEMI (non-ST elevated myocardial infarction) ICD Code: I21.4 Status: Resolved (6) ARF (acute renal failure) ICD Code: N17.9 Status: Acute (7) Diabetes mellitus ICD Code: E11.9 Status: Chronic (8) Morbid obesity ICD Code: E66.01 Status: Acute (9) Severe chronic obstructive pulmonary disease ICD Code: J44.9 Status: Acute (10) CKD (chronic kidney disease) stage 4, GFR 15-29 ml/min ICD Code: N18.4 Status: Acute Assessment and Plan 66yM with acute bibasilar community acquired pneumonia, sepsis, acute kidney injury, acute hypoxic respiratory failure, multi-organ system failure, NSTEMI. critically ill Acute hypoxic respiratory failure-resolved COPD exacerbation Bilateral lower lobe pneumonias/community acquired Bilateral small effusions Extubated 12/09, tolerating well Discontinue Solu-Medrol and start prednisone. Antibiotics as below Nebs, EzPAP, Acapella --CT chest 12/08: Dense bibasilar consolidation left more than right, moderate left effusion --Broad-spectrum antibiotics as below --Symbicort and Spiriva -Clinically improving. NSTEMI LA thrombus Severe sepsis Hypertensive urgency -- Continue heparin drip bridging to coumadin. Pharmacy consultation managing. -- ASA 81 mg daily. Coreg 6.25 mg BID. Norvasc 10 mg daily. Clonidine to 0.3 mg po TID -- Cardiology -Dr Quadrat. Echo Mildly dilated left ventricle. LVEF 45-50%. There is distinct regional WMA with akinetic apex and possibly clot at the apex. - Biatrial moderate dilatation -- Repeat echo study with contrast/Definity to better asses apex-defer to cardiology --Blood pressure not controlled. will need to add hydralazine. New severe acute kidney injury Chronic kidney disease -- Nephrology started HD 12/12/16. -- BUN/creatinine remains high but improving with HD -- Renal ultrasound-normal. Positive for proteinuria. -- Strict I/Os --Patient scheduled for dialysis on Sunday. Awaiting kidney function recovery. Community acquired bilateral lower lobe pneumonia Severe sepsis on Rocephin and azithromycin. Respiratory cultures negative. Patient completed antibiotic therapy on 12/15/16. [place] culture follow up-neg to date Daily CBC -- Received 2 units PRBC 12/08 transfusion for hemoglobin drop to 6.6 from 7.7. -- Hb stable now Type 2 diabetes -- SSI Prophylaxis: GI Prophylaxis Protonix DVT Prophylaxis -- SCDs Heparin drip. Started on Coumadin, pharmacy to dose Discharge Planning Awaiting kidney recovery and patient continues to have severe hypertension. He continues to require dialysis. Problem Qualifiers (1) Sepsis: Qualified Code: A41.9 - Sepsis, due to unspecified organism (2) Pneumonia: Qualified Code: J18.9 - Pneumonia of both lower lobes due to infectious organism (3) ARF (acute renal failure): Qualified Code: N17.9 - Acute renal failure, unspecified acute renal failure type (4) Diabetes mellitus: April Gao MD Dec 16, 2016 15:07
[2016-12-16] MEDS: hydrALAZINE HCL 50 MG TAB PO SCH ×2 (16:46→20:40)
[2016-12-16] MEDS: WARFARIN SOD 4 MG TAB PO SCH (16:46)
[2016-12-16] MEDS: SODIUM CHLORIDE 0.9% FLUSH 10 ML FLUSH IV FLUSH SCH ×2 (16:47→20:41)
[2016-12-16] MEDS: CHLORHEXIDINE 0.12% (ORAL KIT) 15 ML CUP MT SCH (20:00)
[2016-12-16] MEDS: predniSONE 20 MG TAB PO SCH (20:40)
[2016-12-16 22:27] LABS: APTT (PATIENT) 38.2 SEC (24.3-30.1); INTERNATIONAL NORMALIZED RATIO 1.2 RATIO; PROTHROMBIN TIME - PATIENT 13.7 SEC (9.8-11.6)
[2016-12-17] VITALS (7 sets, daily range): BP systolic 150–186; BP diastolic 70–90; PULSE 64–72; RESP 18–20; TEMP 98–98.4; O2SAT 97
[2016-12-17] MEDS: cloNIDine HCL 0.3 MG TAB PO SCH ×4 (00:22→23:29)
[2016-12-17] MEDS: HEPARIN-D5W 25,000 U/250 ML 250 ML IV SCH (00:22)
[2016-12-17] MEDS: CHLORHEXIDINE GLUCONATE 2 % 1 PACK (2 CLOTHS) TOP SCH (03:32)
[2016-12-17] MEDS: hydrALAZINE HCL 20 MG/ML VIAL IV PUSH PRN (04:39)
[2016-12-17 05:58] LABS: BASOPHIL % 0.2 % (0.0-2.0); EOSINOPHIL % 0.1 % (0.0-4.0); LYMPH % 7.1 % (9.0-44.0); LYMPHOCYTE # 0.8 TH/MM3 (1.0-4.8); MEAN CELL VOLUME 87.7 FL (80.0-100.0); MEAN CORPUSCULAR HEMOGLOBIN 29.3 PG (27.0-34.0); MEAN CORPUSCULAR HGB CONC 33.5 % (32.0-36.0); MONO % 7.6 % (0.0-8.0); PLATELET COUNT 194 TH/MM3 (150-450); RED BLOOD COUNT 3.08 MIL/MM3 (4.50-5.90); RED CELL DISTRIBUTION WIDTH 14.6 % (11.6-17.2); WHITE BLOOD COUNT 11.7 TH/MM3 (4.0-11.0)
[2016-12-17 05:59] LABS: HEMO FLAGS AUTO DIFF
[2016-12-17] MEDS: INSULIN NovoLIN REGULAR SUPPLEMENTAL SCALE SQ SCH ×5 (06:00→23:28)
[2016-12-17 06:06] LABS: APTT (PATIENT) 36.8 SEC (24.3-30.1); INTERNATIONAL NORMALIZED RATIO 1.3 RATIO; PROTHROMBIN TIME - PATIENT 14.4 SEC (9.8-11.6)
[2016-12-17] MEDS: hydrALAZINE HCL 50 MG TAB PO SCH ×3 (06:09→20:57)
[2016-12-17 06:44] LABS: ALKALINE PHOSPHATASE 76 U/L (45-117); ALT (GPT) 32 U/L (12-78); ANION GAP 9 MEQ/L (5-15); AST (GOT) 15 U/L (15-37); BICARBONATE 26.9 MEQ/L (21.0-32.0); BLOOD UREA NITROGEN 76 MG/DL (7-18); CHLORIDE 95 MEQ/L (98-107); GLOMERULAR FILTRATION RATE 15 ML/MIN (>89); MAGNESIUM 2.2 MG/DL (1.5-2.5); POTASSIUM 4.9 MEQ/L (3.5-5.1); SODIUM (NA) 131 MEQ/L (136-145); TOTAL BILIRUBIN ADULT 0.3 MG/DL (0.2-1.0)
[2016-12-17 07:32] LABS: PLATELET ESTIMATE SMEAR NORMAL (NORMAL); PLATELET MORPHOLOGY NORMAL (NORMAL); SCAN/DIFF AUTO DIFF CONFIRMED
[2016-12-17] MEDS: CHLORHEXIDINE 0.12% (ORAL KIT) 15 ML CUP MT SCH ×2 (08:00→20:00)
[2016-12-17] MEDS: ARTIFICIAL TEARS OPTH SOLN 15 ML BTL EACH EYE SCH ×3 (09:00→18:00)
[2016-12-17] MEDS: SODIUM CHLORIDE 0.9% FLUSH 10 ML FLUSH IV FLUSH SCH ×2 (09:00→20:59)
[2016-12-17] MEDS: TIOTROPIUM BROMIDE 18 MCG INH INH SCH (09:00)
[2016-12-17] MEDS: PANTOPRAZOLE SODIUM 40 MG VIAL IV SCH (09:00)
[2016-12-17] MEDS: CALCITRIOL 0.25 MCG CAP PO SCH (09:00)
[2016-12-17] MEDS: predniSONE 20 MG TAB PO SCH ×2 (09:00→20:58)
[2016-12-17] MEDS: ASPIRIN 81 MG CHEW TAB CHEW SCH (09:00)
[2016-12-17] MEDS: SODIUM CHLORIDE 0.9% FLUSH 10 ML FLUSH IVF SCH (09:00)
[2016-12-17] MEDS: BUDESONIDE-FORMOTEROL 160/4.5 MCG INHALER INH SCH ×2 (09:00→20:58)
[2016-12-17] MEDS: CALCIUM ACETATE 667 MG CAP PO SCH ×3 (09:00→17:38)
[2016-12-17] MEDS: DOCUSATE SODIUM 50 MG/SENNA 8.6 MG TAB PO SCH ×2 (09:00→20:57)
[2016-12-17] MEDS: CARVEDILOL 6.25 MG TAB PO SCH ×2 (09:00→20:57)
[2016-12-17] MEDS: MAGNESIUM HYDROXIDE SUSP 30 ML CUP PO PRN (09:10)
[2016-12-17] MEDS: SENNOSIDES 8.6 MG TAB PO PRN (09:10)
[2016-12-17] MEDS: LACTULOSE SYRUP 20 GM/30 ML CUP PO PRN (09:10)
--- NOTE | 2016-12-17 14:49 | HHI.PR ---
Subjective Remarks Follow-up for acute renal failure Patient has no complaints. Denied any shortness of breathing or pain. Patient is having good urine output. He scheduled for dialysis on Sunday. Patient has not gotten out of bed since he was hospitalized. He stated that he was able to walk before his hospitalization. Dealt with patient's nurse. Objective Vitals Vital Signs Date Time Temp Pulse Resp B/P (MAP) Pulse Ox O2 Delivery O2 Flow Rate FiO2 12/17/16 07:47 68 12/17/16 04:00 Room Air 12/17/16 04:00 98.0 64 18 185/88 (120) 97 12/17/16 00:00 Room Air 12/17/16 00:00 98.2 69 18 186/90 (122) 97 12/16/16 20:09 73 12/16/16 20:00 98.0 71 18 170/79 (109) 96 12/16/16 20:00 Room Air 12/16/16 17:07 67 12/16/16 16:00 98.3 78 20 172/78 (109) 96 I/O 12/16/16 12/16/16 12/16/16 12/17/16 12/17/16 12/17/16 07:00 15:00 23:00 07:00 15:00 23:00 Intake Total 140 ml 432 ml 72 ml Output Total 600 ml 3000 ml 1200 ml 1400 ml Balance -460 ml -3000 ml -768 ml -1328 ml Intake Oral 140 ml 360 ml IV Total 72 ml 72 ml Output Urine Total 600 ml 1200 ml 1400 ml Hemodialysis 3000 ml Result Diagram: 12/17/16 0528 12/17/16527 Objective Remarks GENERAL: Obese middle-aged male, in NAD HEENT: Normocephalic. Atraumatic. Pupils equal, round, reactive, conjugate. NECK: Trachea is midline. There is no JVD. CHEST: Clear to auscultation bilaterally CARDIOVASCULAR: S1-S2 normal no murmurs, regular rhythm ABDOMEN: Soft, nontender, nondistended. No guarding. MUSCULOSKELETAL: Pulses 2+. No peripheral edema. NEUROLOGICAL: Alert awake. Japanese speaking. Follows commands, non focal exam Medications and IVs Current Medications Sodium Chloride (NS Flush) 2 ml UNSCH PRN IVF FLUSH AFTER USING IV ACCESS Last administered on 12/07/16t 08:58; Start 12/06/16 at 23:30; Stop 12/07/16 at 16:07 ; Status DC Furosemide (Lasix Inj) 40 mg ONCE ONCE IVP Last administered on 12/06/16 23:37 ; Start 12/06/16 at 23:30; Stop 12/06/16 at 23:31; Status DC Methylprednisolone Sodium Succinate (SoluMEDROL INJ) 125 mg ONCE ONCE IVP Last administered on 12/06/16 23:38; Start 12/06/16 at 23:30; Stop 12/06/16 at 23: 31; Status DC Albuterol/ Ipratropium (Duoneb Neb) 1 ampule Q15M INH Last administered on 23:40; Start 12/06/16 at 23:30; Stop 12/07/16 at 00:01; Status DC Ceftriaxone Sodium 1000 mg/ Sodium Chloride 100 ml @ 200 mls/hr ONCE ONCE IV Last administered on 12/07/16 00:08; Start 12/07/16 at 00:00; Stop 12/07/16 at 00:29; Status DC Azithromycin 500 mg/Sodium Chloride 250 ml @ 250 mls/hr ONCE ONCE IV Last administered on 12/07/16 00:23; Start 12/07/16 at 00:00; Stop 12/07/16 at 00:59 ; Status DC Acetaminophen (Tylenol Supp) 650 mg ONCE ONCE RECTAL Last administered on 12/07 00:23; Start 12/07/16 at 00:15; Stop 12/07/16 at 00:16; Status DC Sodium Chloride 1,000 ml @ 125 mls/hr Q8H IV Last administered on 12/07/16 00 :23; Start 12/07/16 at 00:01; Stop 12/07/16 at 01:52; Status DC Sodium Chloride 1,000 ml @ 999 mls/hr BOLUS ONCE IV Last administered on 12/07 00:42; Start 12/07/16 at 00:30; Stop 12/07/16 at 01:30; Status DC Dextrose (D50w (Vial) Inj) 25 ml UNSCH PRN IV PUSH HYPOGLYCEMIA-SEE COMMENTS; Start 12/07/16 at 00:45 Insulin Human Regular (NovoLIN R SUPPLEMENTAL SCALE) 1 Q6HR SQ Last administered on 12/17/16 06:00; Start 12/07/16 at 06:00 Albuterol/ Ipratropium (Duoneb Neb) 1 ampule Q6HR NEB INH Last administered on 12/14/16 03:30; Start 12/07/16 at 04:00; Stop 12/14/16 at 09:04; Status DC Albuterol/ Ipratropium (Duoneb Neb) 1 ampule Q2HR NEB PRN INH WHEEZING; Start 12/07/16 at 00:45; Stop 12/07/16 at 15:28; Status DC Ondansetron HCl (Zofran Inj) 4 mg Q6H PRN IV NAUSEA OR VOMITING; Start at 00:45 Miscellaneous Information 1 Q361D XX ; Start 12/07/16 at 00:45; Stop 12/09/16 at 12:49; Status DC Chlorhexidine Gluconate (Chlorhexidine 2% Cloth) 3 pack Taper DAILY@04 TOP Last administered on 12/09/16 04:00; Start 12/07/16 at 04:00; Stop 12/09/16 at 12:49; Status DC Chlorhexidine Gluconate (Chlorhexidine 2% Cloth) 3 pack UNSCH PRN TOP HYGIENIC CARE; Start 12/07/16 at 00:45; Stop 12/09/16 at 12:50; Status DC Sodium Chloride 1,000 ml @ 100 mls/hr Q10H IV Last administered on 12/07/16 11:45; Start 12/07/16 at 01:45; Stop 12/07/16 at 16:08; Status DC Methylprednisolone Sodium Succinate (SoluMEDROL INJ) 60 mg Q12HR IV PUSH Last administered on 12/12/16 07:53; Start 12/07/16 at 09:00; Stop 12/12/16 at 08:03 ; Status DC Azithromycin 500 mg/Sodium Chloride 250 ml @ 250 mls/hr Q24H IV Last administered on 12/14/16 08:20; Start 12/08/16 at 09:00; Stop 12/15/16 at 08:59 ; Status DC Ceftriaxone Sodium 1000 mg/ Sodium Chloride 100 ml @ 200 mls/hr Q24H IV Last administered on 12/14/16 08:20; Start 12/08/16 at 09:00; Stop 12/15/16 at 08:59 ; Status DC Heparin Sodium/ Dextrose 250 ml @ 0 mls/hr TITRATE IV Last administered on 12/17 00:22; Start 12/07/16 at 01:45; Status Future hold Chlorhexidine Gluconate (Peridex 0.12% Liq) 15 ml BID@08,20 MT Last administered on 12/09/16 08:50; Start 12/07/16 at 20:00; Stop 12/09/16 at 12:50 ; Status DC Etomidate (Amidate Inj) 40 mg ONCE ONCE IV PUSH ; Start 12/07/16 at 14:45; Stop 12/07/16 at 14:46; Status Cancel Rocuronium [place] (Zemuron Inj) 100 mg BOLUS ONCE IV ; Start 12/07/16 at 14:45 ; Stop 12/07/16 at 14:46; Status Cancel Etomidate (Amidate Inj) 20 mg STK-MED ONCE .ROUTE ; Start 12/07/16 at 13:23; Stop 12/07/16 at 13:24; Status DC Rocuronium [place] (Zemuron Inj) 50 mg STK-MED ONCE .ROUTE ; Start 12/07/16 at 13:24; Stop 12/07/16 at 13:25; Status DC Rocuronium [place] (Zemuron Inj) 50 mg STK-MED ONCE .ROUTE ; Start 12/07/16 at 13:41; Stop 12/07/16 at 13:42; Status DC Propofol 100 ml @ As Directed STK-MED ONCE .ROUTE ; Start 12/07/16 at 13:43; Stop 12/07/16 at 13:44; Status DC Sodium Chloride (NS Flush) DAILY IVF Last administered on 12/15/16 09:00; Start 12/07/16 at 15:30 Sodium Chloride (NS Flush) UNSCH PRN IVF SEE PROTOCOL; Start 12/07/16 at 15:30 Chlorhexidine Gluconate (Peridex 0.12% Liq) 15 ml BID@08,20 MT Last administered on 12/13/16 20:00; Start 12/07/16 at 20:00 Propofol 100 ml @ 0 mls/hr TITRATE IV Last administered on 12/08/16 17:52; Start 12/07/16 at 15:30; Stop 12/10/16 at 09:05; Status DC Fentanyl Citrate 250 ml @ 0 mls/hr TITRATE IV Last administered on 12/08/16 04 :12; Start 12/07/16 at 15:30; Stop 12/10/16 at 09:05; Status DC Albuterol Sulfate (Albuterol Neb) 2.5 mg Q2HR NEB PRN NEB DYSPNEA; Start at 15:30 Sodium Chloride 1,000 ml @ 84 mls/hr [id number] IV ; Start 12/07/16 at 15:28; Stop 12/07/16 at 16:31; Status DC Sodium Chloride (NS Flush) 2 ml UNSCH PRN IV FLUSH FLUSH AFTER USING IV ACCESS Last administered on 12/12/16 11:32; Start 12/07/16 at 15:30 Sodium Chloride (NS Flush) 2 ml BID IV FLUSH Last administered on 12/17/16 09: 00; Start 12/07/16 at 21:00 Acetaminophen (Tylenol) 650 mg Q6H PRN PO PAIN 1-10 AND/OR FEVER >101F; Start 12/07/16 at 15:30 Pantoprazole Sodium (Protonix Inj) 40 mg DAILY IV Last administered on 09:00; Start 12/08/16 at 09:00 Artificial Tears (Tears Naturale Opth Soln) 1 drop TID EACH EYE Last administered on 12/17/16 13:00; Start 12/07/16 at 18:00 Miscellaneous Information 1 Q361D XX ; Start 12/07/16 at 15:30 Chlorhexidine Gluconate (Chlorhexidine 2% Cloth) Taper DAILY@04 TOP Last administered on 12/14/16 04:00; Start 12/08/16 at 04:00; Stop 12/04/17 at 03:59 Chlorhexidine Gluconate (Chlorhexidine 2% Cloth) 3 pack UNSCH PRN TOP HYGIENIC CARE; Start 12/07/16 at 15:30 Senna/Docusate Sodium (Sara-Colace) 1 tab BID PO Last administered on 09:00; Start 12/07/16 at 21:00 Magnesium Hydroxide (Milk Of Magnesia Liq) 30 ml Q12H PRN PO MILD - MODERATE CONSTIPATION; Start 12/07/16 at 15:30 Sennosides (Senokot) 17.2 mg Q12H PRN PO MODERATE - SEVERE CONSTIPATION Last administered on 12/13/16 08:21; Start 12/07/16 at 15:30 Bisacodyl (Dulcolax Supp) 10 mg DAILY PRN RECTAL SEVERE CONSITIPATION; Start at 15:30 Lactulose (Lactulose Liq) 30 ml DAILY PRN PO SEVERE CONSITIPATION Last administered on 12/15/16 21:38; Start 12/07/16 at 15:30 Etomidate (Amidate Inj) 20 mg NOW ONCE IV PUSH Last administered on 12/07/16 16:42; Start 12/07/16 at 16:00; Stop 12/07/16 at 16:01; Status DC Rocuronium [place] (Zemuron Inj) 50 mg NOW ONCE IV PUSH Last administered on 16:41; Start 12/07/16 at 16:00; Stop 12/07/16 at 16:01; Status DC Sodium Bicarbonate 100 meq/Sterile Water 950 ml @ 100 mls/hr Q9H30M IV Last administered on 12/09/16 08:51; Start 12/07/16 at 18:00; Stop 12/09/16 at 12:22 ; Status DC Sodium Bicarbonate (Sodium Bicarbonate 8.4% Inj) 50 meq ONCE ONCE IV PUSH Last administered on 12/07/16 17:39; Start 12/07/16 at 16:30; Stop 12/07/16 at 16:59; Status DC Sodium Polystyrene Sulfonate (Kayexalate Liq) 15 gm ONCE ONCE PO Last administered on 12/07/16 19:45; Start 12/07/16 at 19:45; Stop 12/07/16 at 20:06 ; Status DC Sodium Polystyrene Sulfonate (Kayexalate Liq) 15 gm ONCE ONCE RECTAL Last administered on 12/07/16 19:45; Start 12/07/16 at 19:45; Stop 12/07/16 at 20:06 ; Status DC Dextrose (D50w (Vial) Inj) 25 ml STAT ONCE IV PUSH Last administered on 20:13; Start 12/07/16 at 19:45; Stop 12/07/16 at 20:05; Status DC Insulin Human Regular (NovoLIN R INJ) 10 units STAT ONCE IV PUSH Last administered on 12/07/16 20:14; Start 12/07/16 at 19:45; Stop 12/07/16 at 20:05 ; Status DC Calcium Gluconate 2 gm/Sodium Chloride 120 ml @ 120 mls/hr STAT ONCE IV Last administered on 12/07/16 19:45; Start 12/07/16 at 19:45; Stop 12/07/16 at 20:44 ; Status DC Aspirin (Aspirin Chew) 81 mg DAILY CHEW Last administered on 12/17/16 09:00; Start 12/08/16 at 12:00 Dexmedetomidine HCl 400 mcg/ Sodium Chloride 100 ml @ 0 mls/hr TITRATE IV Last administered on 12/09/16 06:18; Start 12/08/16 at 18:30; Stop 12/10/16 at 09:05 ; Status DC Calcium Gluconate 2 gm/Sodium Chloride 120 ml @ 120 mls/hr ONCE ONCE IV Last administered on 12/09/16 06:18; Start 12/09/16 at 05:15; Stop 12/09/16 at 06:14 ; Status DC Bumetanide (Bumex Inj) 1 mg STK-MED ONCE .ROUTE Last administered on 12/09/16 07:21; Start 12/09/16 at 07:14; Stop 12/09/16 at 07:15; Status DC Bumetanide (Bumex Inj) 1 mg STK-MED ONCE .ROUTE Last administered on 12/09/16 07:21; Start 12/09/16 at 07:14; Stop 12/09/16 at 07:15; Status DC Bumetanide (Bumex Inj) 2 mg ONCE ONCE IV PUSH ; Start 12/09/16 at 08:00; Stop 12/09/16 at 08:01; Status DC Sodium Chloride 1,000 ml @ 50 mls/hr Q20H IV Last administered on 12/10/16 17 :18; Start 12/09/16 at 13:00; Stop 12/11/16 at 10:28; Status DC Calcium Carbonate (Oscal) 500 mg Q12HR PO Last administered on 12/10/16 08:23 ; Start 12/09/16 at 21:00; Stop 12/10/16 at 12:43; Status DC Labetalol HCl (Trandate Inj) 20 mg NOW ONCE IV Last administered on 12/10/16 00:23; Start 12/10/16 at 00:15; Stop 12/10/16 at 00:16; Status DC Labetalol HCl (Trandate Inj) 20 mg Q2H PRN IV SBP > 160 Last administered on 08:05; Start 12/10/16 at 00:15 Metoprolol Tartrate (Lopressor) 25 mg NOW ONCE PO Last administered on 00:23; Start 12/10/16 at 00:15; Stop 12/10/16 at 00:16; Status DC Calcium Gluconate 2 gm/Sodium Chloride 120 ml @ 120 mls/hr NOW ONCE IV Last administered on 12/10/16 07:31; Start 12/10/16 at 07:00; Stop 12/10/16 at 07:59 ; Status DC Morphine Sulfate (Morphine Inj) 2 mg Q3H PRN IV PUSH pain, anxiety Last administered on 12/12/16 14:04; Start 12/10/16 at 09:15 Carvedilol (Coreg) 6.25 mg Q12HR PO Last administered on 12/17/16 09:00; Start 12/10/16 at 10:00 Calcium Acetate (Phoslo) 1,334 mg TID PO Last administered on 12/17/16 13:00; Start 12/10/16 at 13:00 Calcitriol (Rocaltrol) 0.5 mcg DAILY PO Last administered on 12/17/16 09:00; Start 12/10/16 at 12:45 Bumetanide (Bumex Inj) 2 mg ONCE ONCE IV PUSH Last administered on 12/11/16 11:51; Start 12/11/16 at 11:30; Stop 12/11/16 at 11:31; Status DC Calcium Gluconate 2 gm/Dextrose 120 ml @ 120 mls/hr ONCE ONCE IV Last administered on 12/11/16 12:17; Start 12/11/16 at 13:00; Stop 12/11/16 at 13:59 ; Status DC Budesonide/ Formoterol Fumarate (Symbicort 160-4.5 Inh) 1 puff Q12HR INH Last administered on 12/17/16 09:00; Start 12/11/16 at 12:00 Tiotropium [place] (Spiriva Inh) 18 mcg DAILY INH Last administered on 09:00; Start 12/11/16 at 12:00 Clonidine (Catapres) 0.2 mg Q8H PO Last administered on 12/12/16 01:00; Start 12/11/16 at 16:00; Stop 12/12/16 at 07:33; Status DC Amlodipine Besylate (Norvasc) 10 mg DAILY PO Last administered on 12/17/16 09: 00; Start 12/11/16 at 15:15 Hydralazine HCl (Apresoline Inj) 20 mg Q4H PRN IV PUSH SYS BP GREATER THAN 160 MMHG Last administered on 12/17/16 04:39; Start 12/11/16 at 15:15 Bumetanide (Bumex Inj) 3 mg ONCE ONCE IV PUSH Last administered on 12/11/16 18:09; Start 12/11/16 at 17:00; Stop 12/11/16 at 17:01; Status DC Clonidine (Catapres) 0.3 mg Q8H PO Last administered on 12/17/16 08:00; Start 12/12/16 at 08:00 Methylprednisolone Sodium Succinate (SoluMEDROL INJ) 40 mg Q12H IV PUSH Last administered on 12/16/16 08:21; Start 12/12/16 at 20:00; Stop 12/16/16 at 15:04 ; Status DC Sodium Chloride 1,000 ml @ 0 mls/hr Q0M PRN IV For Prime & Rinse Back Last administered on 12/16/16 11:40; Start 12/12/16 at 12:11 Heparin Sodium (Porcine) (Heparin Inj) 8,000 units UNSCH PRN IVF WITH DIALYSIS ; Start 12/12/16 at 12:15 Sodium Chloride 1,000 ml @ 200 mls/hr Q5H PRN IV WITH DIALYSIS; Start 12/12/16 at 12:11 Sodium Chloride 1,000 ml @ 0 mls/hr Q0M PRN IV WITH DIALYSIS Last administered on 12/12/16 17:04; Start 12/12/16 at 12:11 Mannitol (Mannitol Inj) 12.5 gm UNSCH PRN IV WITH DIALYSIS; Start 12/12/16 at 12:15 Albumin Human (Albumin 25% Inj) 25 gm UNSCH PRN IV WITH DIALYSIS; Start at 12:15 Sodium Chloride (NS Flush) 5 ml UNSCH PRN IV FLUSH WITH DIALYSIS; Start at 12:15 Heparin Sodium (Porcine) (Heparin Inj) UNSCH PRN .XX WITH DIALYSIS Last administered on 12/16/16 11:40; Start 12/12/16 at 12:15 Gentamicin Sulfate (Gentamicin (Dialysis) Inj) 20 mg UNSCH PRN IV WITH DIALYSIS Last administered on 12/16/16 11:40; Start 12/12/16 at 12:15 Ondansetron HCl (Zofran Inj) 4 mg UNSCH PRN IV WITH DIALYSIS; Start 12/12/16 at 12:15 Acetaminophen (Tylenol) 650 mg UNSCH PRN PO for headach, pain, temp > 101F; Start 12/12/16 at 12:15 Diphenhydramine HCl (Benadryl) 25 mg UNSCH PRN PO for hives/itching/anaphylaxis ; Start 12/12/16 at 12:15 Nitroglycerin (Nitrostat Sl) 0.4 mg UNSCH PRN SL CHEST PAIN; Start 12/12/16 at 12:15 Clonidine (Catapres) 0.1 mg UNSCH PRN PO for BP > 180/100 X 2 readings; Start 12/12/16 at 12:15 Epoetin Abe (Epogen Inj) 10,000 units UNSCH PRN IV WITH DIALYSIS Last administered on 12/16/16 11:40; Start 12/12/16 at 12:15 Gelatin (Gelfoam 12 Mm/7 Mm Top) 1 foam UNSCH PRN TOP SEE LABEL COMMENTS; Start 12/12/16 at 12:15 Lorazepam (Ativan Inj) 2 mg STK-MED ONCE .ROUTE ; Start 12/12/16 at 14:17; Stop 12/12/16 at 14:18; Status DC Lorazepam (Ativan Inj) 2 mg NOW ONCE IV PUSH Last administered on 12/12/16 14 :59; Start 12/12/16 at 14:45; Stop 12/12/16 at 14:59; Status DC Warfarin Sodium (Coumadin) 4 mg DAILY@16 PO Last administered on 12/16/16 16: 46; Start 12/13/16 at 16:00 Pharmacy Profile Note 0 ml @ 0 mls/hr UNSCH OTHER ; Start 12/13/16 at 12:00 Patient Medication Teaching (Coumadin Booklet) 1 ONCE ONCE .XX Last administered on 12/15/16 17:00; Start 12/15/16 at 16:00; Stop 12/15/16 at 16:01 ; Status DC Hydralazine HCl (Apresoline) 50 mg Q8HR PO Last administered on 12/17/16 13:23 ; Start 12/16/16 at 15:00 Prednisone (Deltasone) 20 mg BID PO Last administered on 12/17/16 09:00; Start 12/16/16 at 21:00 A/P Problem List: (1) Respiratory failure ICD Code: J96.90 - Respiratory failure, unspecified, unspecified whether with hypoxia or hypercapnia Status: Acute (2) Sepsis ICD Code: A41.9 - Sepsis, unspecified organism Status: Acute (3) Pneumonia ICD Code: J18.9 - Pneumonia, unspecified organism Status: Acute (4) left atrial thrombus Status: Acute (5) NSTEMI (non-ST elevated myocardial infarction) ICD Code: I21.4 - Non-ST elevation (NSTEMI) myocardial infarction Status: Resolved (6) ARF (acute renal failure) ICD Code: N17.9 - ARF (acute renal failure) Status: Acute (7) Diabetes mellitus ICD Code: E11.9 - Diabetes mellitus Status: Chronic (8) Morbid obesity ICD Code: E66.01 - Morbid (severe) obesity due to excess calories Status: Acute (9) Severe chronic obstructive pulmonary disease ICD Code: J44.9 - Chronic obstructive pulmonary disease, unspecified Status: Acute (10) CKD (chronic kidney disease) stage 4, GFR 15-29 ml/min ICD Code: N18.4 - Chronic kidney disease, stage 4 (severe) Status: Acute Assessment and Plan 66yM with acute bibasilar community acquired pneumonia, sepsis, acute kidney injury, acute hypoxic respiratory failure, multi-organ system failure, NSTEMI. critically ill Acute hypoxic respiratory failure-resolved COPD exacerbation Bilateral lower lobe pneumonias/community acquired Bilateral small effusions Extubated 12/09, tolerating well Discontinue Solu-Medrol and start prednisone. Continue to wean prednisone. Antibiotics as below Nebs, EzPAP, Acapella --CT chest 12/08: Dense bibasilar consolidation left more than right, moderate left effusion --Status post completed antibiotic treatment while hospitalized. --Symbicort and Spiriva -Clinically improving. NSTEMI LA thrombus Severe sepsis Hypertensive urgency -- Continue heparin drip bridging to coumadin. Pharmacy consultation managing. -- ASA 81 mg daily. Coreg 6.25 mg BID. Norvasc 10 mg daily. Clonidine to 0.3 mg po TID -- Cardiology -Dr Quadrat. Echo Mildly dilated left ventricle. LVEF 45-50%. There is distinct regional WMA with akinetic apex and possibly clot at the apex. - Biatrial moderate dilatation -- Repeat echo study with contrast/Definity to better asses apex-defer to cardiology --Blood pressure not controlled. Will increase hydralazine. New severe acute kidney injury Chronic kidney disease -- Nephrology started HD 12/12/16. -- BUN/creatinine remains high but improving with HD -- Renal ultrasound-normal. Positive for proteinuria. -- Strict I/Os --Patient scheduled for dialysis on Sunday. Awaiting kidney function recovery. He is producing good urine output on his own now. Community acquired bilateral lower lobe pneumonia Severe sepsis on Rocephin and azithromycin. Respiratory cultures negative. Patient completed antibiotic therapy on 12/15/16. [place] culture follow up-neg to date Daily CBC -- Received 2 units PRBC 12/08 transfusion for hemoglobin drop to 6.6 from 7.7. -- Hb stable now Type 2 diabetes -- SSI Prophylaxis: GI Prophylaxis Protonix DVT Prophylaxis -- SCDs Heparin drip. Started on Coumadin, pharmacy to dose Discharge Planning Awaiting kidney recovery. Problem Qualifiers (1) Sepsis: (2) Pneumonia: (3) ARF (acute renal failure): (4) Diabetes mellitus: April Gao MD Dec 17, 2016 2:49 pm
[2016-12-17] MEDS ORDERED: WARFARIN SOD 2 MG TAB PO ONE (16:00)
[2016-12-17 16:44] LABS: APTT (PATIENT) 38.5 SEC (24.3-30.1)
[2016-12-17] MEDS: WARFARIN SOD 4 MG TAB PO SCH (17:37)
--- NOTE | 2016-12-17 17:54 | HHI.NPPN ---
Subjective History of Present Illness 66-year-old male with past medical history of hypertension, diabetes mellitus, history of cerebrovascular accident with left-sided weakness, hyperlipidemia, bronchial asthma, chronic kidney disease who was admitted because of shortness of breath and chest pain. I was called to see the patient because of elevated BUN and creatinine. The patient was diagnosed here with non-ST elevation MN. The patient has history of chronic kidney disease. Additional Remarks Tolerated HD well yesterday, no acute complaints. Objective Data Data Vital Signs Date Time Temp Pulse Resp B/P (MAP) Pulse Ox O2 Delivery O2 Flow Rate FiO2 12/17/16 07:47 68 12/17/16 04:00 Room Air 12/17/16 04:00 98.0 64 18 185/88 (120) 97 12/17/16 00:00 Room Air 12/17/16 00:00 98.2 69 18 186/90 (122) 97 12/16/16 20:09 73 12/16/16 20:00 98.0 71 18 170/79 (109) 96 12/16/16 20:00 Room Air -: 12/17/16 0528 12/17/16 0528 Physical Exam General Appearance: No Acute Distress, Comfortable Eyes Eye Exam: Pupils Equal Throat Throat Exam: Oral Mucosa [place] & Moist Neck Neck Exam: Neck Supple Pulmonary Resp Exam: No Distress, Rhonchi, Decreased Bases, Diminished Breath Sounds Cardiology CV Exam: Regular, Normal Sinus Rhythm Gastrointestinal/Abdomen GI Exam: Soft, Non-Tender, Bowel Sounds Present Extremeties Extremities Exam: Moderate Edema Neurologic Neuro Exam: Alert, Awake Psychiatric Psych Exam: Appropriate Responses Assessment/Plan Assessment Summary: WILLIE/Acute Renal Failure, CHF, CKD Stage IV Problem List: (1) NSTEMI (non-ST elevated myocardial infarction) ICD Codes: I21.4 - Non-ST elevation (NSTEMI) myocardial infarction Status: Resolved (2) Diabetes mellitus ICD Codes: E11.9 - Diabetes mellitus Status: Chronic (3) Asthma ICD Codes: J45.909 - Asthma Status: Chronic (4) Shortness of breath ICD Codes: R06.02 - Shortness of breath Status: Acute (5) Leg edema ICD Codes: R60.0 - Leg edema Status: Acute (6) Hypertension ICD Codes: I10 - Hypertension Status: Chronic (7) CKD (chronic kidney disease) stage 4, GFR 15-29 ml/min ICD Codes: N18.4 - Chronic kidney disease, stage 4 (severe) Status: Acute (8) ARF (acute renal failure) ICD Codes: N17.9 - ARF (acute renal failure) Status: Acute Plan Tolerated HD yesterday with 3L UF UOP improving - 2.6L UOP over 24 hours, continue to monitor for signs of renal recovery. Will plan for next HD Sunday, if necessary. Follow creatinine and UOP. Has proteinuria, serology pending. On phoslo, calcitriol. BP is still on higher side, hydralazine was increased earlier today. Continue to monitor. Problem Qualifiers (1) Diabetes mellitus: (2) ARF (acute renal failure): Reed Prescott MD Dec 17, 2016 17:54
[2016-12-17 21:58] LABS: APTT (PATIENT) 45.7 SEC (24.3-30.1)
[2016-12-18] VITALS (10 sets, daily range): BP systolic 148–179; BP diastolic 74–96; PULSE 59–74; RESP 18–20; TEMP 97.7–98.3; O2SAT 95–99
[2016-12-18] MEDS: HEPARIN-D5W 25,000 U/250 ML 250 ML IV SCH (01:55)
[2016-12-18 02:11] LABS: AUTOMATED NEUTROPHIL # 12.8 TH/MM3 (1.8-7.7); BASOPHIL % 0.1 % (0.0-2.0); HEMATOCRIT 27.6 % (39.0-51.0); LYMPH % 6.2 % (9.0-44.0); LYMPHOCYTE # 0.9 TH/MM3 (1.0-4.8); MEAN CELL VOLUME 87.8 FL (80.0-100.0); MEAN CORPUSCULAR HEMOGLOBIN 28.8 PG (27.0-34.0); MEAN CORPUSCULAR HGB CONC 32.8 % (32.0-36.0); MONO % 5.5 % (0.0-8.0); NEUT % 88.2 % (16.0-70.0); PLATELET COUNT 200 TH/MM3 (150-450); RED BLOOD COUNT 3.14 MIL/MM3 (4.50-5.90); RED CELL DISTRIBUTION WIDTH 14.7 % (11.6-17.2); WHITE BLOOD COUNT 14.5 TH/MM3 (4.0-11.0)
[2016-12-18 02:12] LABS: HEMO FLAGS AUTO DIFF
[2016-12-18 02:19] LABS: INTERNATIONAL NORMALIZED RATIO 1.3 RATIO; PROTHROMBIN TIME - PATIENT 14.6 SEC (9.8-11.6)
[2016-12-18 02:21] LABS: APTT (PATIENT) 48.5 SEC (24.3-30.1)
[2016-12-18 02:32] LABS: ALT (GPT) 35 U/L (12-78); ANION GAP 11 MEQ/L (5-15); AST (GOT) 18 U/L (15-37); BICARBONATE 26.7 MEQ/L (21.0-32.0); BLOOD UREA NITROGEN 84 MG/DL (7-18); CHLORIDE 94 MEQ/L (98-107); GLOMERULAR FILTRATION RATE 12 ML/MIN (>89); MAGNESIUM 2.4 MG/DL (1.5-2.5); POTASSIUM 5.4 MEQ/L (3.5-5.1); SODIUM (NA) 132 MEQ/L (136-145)
[2016-12-18 02:34] LABS: ALKALINE PHOSPHATASE 81 U/L (45-117); TOTAL BILIRUBIN ADULT 0.2 MG/DL (0.2-1.0)
[2016-12-18 03:01] LABS: PLATELET ESTIMATE SMEAR NORMAL (NORMAL); PLATELET MORPHOLOGY NORMAL (NORMAL); SCAN/DIFF AUTO DIFF CONFIRMED
[2016-12-18] MEDS: CHLORHEXIDINE GLUCONATE 2 % 1 PACK (2 CLOTHS) TOP SCH (03:02)
[2016-12-18] MEDS: hydrALAZINE HCL 20 MG/ML VIAL IV PUSH PRN (04:26)
[2016-12-18] MEDS: hydrALAZINE HCL 50 MG TAB PO SCH ×3 (05:12→22:39)
[2016-12-18] MEDS: INSULIN NovoLIN REGULAR SUPPLEMENTAL SCALE SQ SCH ×4 (05:20→23:27)
[2016-12-18] MEDS: CHLORHEXIDINE 0.12% (ORAL KIT) 15 ML CUP MT SCH ×2 (08:00→20:00)
[2016-12-18 08:43] LABS: APTT (PATIENT) 53.9 SEC (24.3-30.1)
[2016-12-18] MEDS: ARTIFICIAL TEARS OPTH SOLN 15 ML BTL EACH EYE SCH ×3 (09:00→17:17)
[2016-12-18] MEDS: DOCUSATE SODIUM 50 MG/SENNA 8.6 MG TAB PO SCH (09:00)
[2016-12-18] MEDS: SODIUM CHLORIDE 0.9% FLUSH 10 ML FLUSH IVF SCH (09:00)
[2016-12-18] MEDS: CALCITRIOL 0.25 MCG CAP PO SCH (10:10)
[2016-12-18] MEDS: CARVEDILOL 6.25 MG TAB PO SCH ×2 (10:10→20:43)
[2016-12-18] MEDS: CALCIUM ACETATE 667 MG CAP PO SCH ×3 (10:10→17:13)
[2016-12-18] MEDS: predniSONE 20 MG TAB PO SCH (10:10)
[2016-12-18] MEDS: ASPIRIN 81 MG CHEW TAB CHEW SCH (10:10)
[2016-12-18] MEDS: SODIUM CHLORIDE 0.9% FLUSH 10 ML FLUSH IV FLUSH SCH ×2 (10:11→20:43)
[2016-12-18] MEDS: PANTOPRAZOLE SODIUM 40 MG VIAL IV SCH (10:11)
[2016-12-18] MEDS: cloNIDine HCL 0.3 MG TAB PO SCH ×3 (10:15→23:25)
[2016-12-18] MEDS: TIOTROPIUM BROMIDE 18 MCG INH INH SCH (10:20)
[2016-12-18] MEDS: BUDESONIDE-FORMOTEROL 160/4.5 MCG INHALER INH SCH ×2 (10:20→20:45)
--- NOTE | 2016-12-18 12:37 | HHI.PR ---
Subjective Remarks Follow-up sepsis/LA thrombus/end-stage renal disease requiring hemodialysis 12/18/16-patient seen and examined, BP slightly up. Labile blood glucose. Patient denies any nausea or vomiting. No acute event overnight Objective Vitals Vital Signs Date Time Temp Pulse Resp B/P (MAP) Pulse Ox O2 Delivery O2 Flow Rate FiO2 12/18/16 12:00 98.0 59 19 156/74 (101) 97 12/18/16 08:00 Room Air 12/18/16 08:00 97.7 62 19 161/76 (104) 95 12/18/16 08:00 62 12/18/16 04:54 148/82 (104) 12/18/16 04:00 98.3 74 20 172/84 (113) 98 12/18/16 03:41 160/96 (117) 12/18/16 00:00 98.3 63 19 179/88 (118) 99 12/17/16 21:00 Room Air 12/17/16 20:27 67 12/17/16 20:00 98.4 67 19 165/79 (107) 97 12/17/16 16:05 98.3 72 20 152/70 (97) 97 I/O 12/17/16 12/17/16 12/17/16 12/18/16 12/18/16 12/18/16 07:00 15:00 23:00 07:00 15:00 23:00 Intake Total 72 ml 480 ml 123 ml 340 ml Output Total 1400 ml 1600 ml 800 ml Balance -1328 ml -1120 ml 123 ml -460 ml Intake Oral 480 ml 240 ml IV Total 72 ml 123 ml 100 ml Output Urine Total 1400 ml 1600 ml 800 ml # Bowel Movements 2 Result Diagram: 12/18/16 0148 12/18/16 0148 Imaging Last Impressions Chest X-Ray 12/13/16 0600 Signed Impressions: Service Date/Time: Tuesday, December 13, 2016 04:54 - CONCLUSION: Persistent lobar consolidation left lower lung. Jose Roberto Cheema MD Chest CT 12/08/16 0000 Signed Impressions: Service Date/Time: Thursday, December 08, 2016 14:02 - CONCLUSION: 1. Bilateral lower lobe consolidating airspace disease. 2. Small to moderate bilateral pleural effusions; larger on the left. 3. Cardiomegaly. 4. Endotracheal and nasogastric tubes in good position. Tutu Christianson MD Renal Ultrasound 12/07/16 0000 Signed Impressions: Service Date/Time: November 07:54 - CONCLUSION: Unremarkable and stable bilateral renal ultrasound. No evidence of hydronephrosis. Baron Medrano MD Objective Remarks GENERAL: NAD SKIN: Warm and dry. HEAD: Normocephalic. EYES: No scleral icterus. No injection or drainage. NECK: Supple, trachea midline. No JVD or lymphadenopathy. CARDIOVASCULAR: Regular rate and rhythm without murmurs, gallops, or rubs. RESPIRATORY: Breath sounds equal bilaterally. No accessory muscle use. GASTROINTESTINAL: Abdomen soft, non-tender, nondistended. MUSCULOSKELETAL: No cyanosis; +1edema BLE. BACK: Nontender without obvious deformity. No CVA tenderness. A/P Problem List: (1) Respiratory failure ICD Code: J96.90 - Respiratory failure, unspecified, unspecified whether with hypoxia or hypercapnia Status: Acute (2) Sepsis ICD Code: A41.9 - Sepsis, unspecified organism Status: Acute (3) Pneumonia ICD Code: J18.9 - Pneumonia, unspecified organism Status: Acute (4) left atrial thrombus Status: Acute (5) NSTEMI (non-ST elevated myocardial infarction) ICD Code: I21.4 - Non-ST elevation (NSTEMI) myocardial infarction Status: Resolved (6) ARF (acute renal failure) ICD Code: N17.9 - ARF (acute renal failure) Status: Acute (7) Diabetes mellitus ICD Code: E11.9 - Diabetes mellitus Status: Chronic (8) Morbid obesity ICD Code: E66.01 - Morbid (severe) obesity due to excess calories Status: Acute (9) Severe chronic obstructive pulmonary disease ICD Code: J44.9 - Chronic obstructive pulmonary disease, unspecified Status: Acute (10) CKD (chronic kidney disease) stage 4, GFR 15-29 ml/min ICD Code: N18.4 - Chronic kidney disease, stage 4 (severe) Status: Acute Assessment and Plan 66-year-old man with Acute hypoxic respiratory failure-resolved COPD exacerbation Bilateral lower lobe pneumonias/community acquired Bilateral small effusions Extubated 12/09, tolerating well s/p Solu-Medrol and change prednisone to 20 mg daily Antibiotics as below Nebs, EzPAP, Acapella --CT chest 12/08: Dense bibasilar consolidation left more than right, moderate left effusion --Status post completed antibiotic treatment while hospitalized. --Symbicort and Spiriva NSTEMI LA thrombus Severe sepsis-resolved Hypertensive urgency-resolved -- Continue heparin drip bridging to Coumadin. -- ASA 81 mg daily. Coreg 6.25 mg BID. Norvasc 10 mg daily. Clonidine to 0.3 mg po TID and hydralazine 100 mg by mouth daily 8 hour -- Cardiology -Dr Quadrat. Echo Mildly dilated left ventricle. LVEF 45-50%. There is distinct regional WMA with akinetic apex and possibly clot at the apex. - Biatrial moderate dilatation -- Repeat echo study with contrast/Definity to better asses apex-defer to cardiology New severe acute kidney injury Chronic kidney disease -- Nephrology started HD 12/12/16. -- Renal ultrasound-normal. Positive for proteinuria. --Patient scheduled for dialysis on Sunday. Awaiting kidney function recovery. Community acquired bilateral lower lobe pneumonia Severe sepsis Patient completed antibiotic therapy on 12/15/16. [place] culture follow up-neg to date -- Received 2 units PRBC 12/08 transfusion for hemoglobin drop to 6.6 from 7.7. Type 2 diabetes-labile blood glucose -- Start Levemir 15 units at bedtime today 12/18/16 and continue SSI Prophylaxis: GI Prophylaxis Protonix DVT Prophylaxis -- SCDs Heparin drip and Coumadin, Problem Qualifiers (1) Sepsis: (2) Pneumonia: (3) ARF (acute renal failure): (4) Diabetes mellitus: Hernandez Gray MD Dec 18, 2016 12:37
[2016-12-18] MEDS ORDERED: WARFARIN SOD 3 MG TAB PO ONE (16:00)
[2016-12-18] MEDS: WARFARIN SOD 4 MG TAB PO SCH (17:13)
--- NOTE | 2016-12-18 18:06 | HHI.NPPN ---
Subjective History of Present Illness 66-year-old male with past medical history of hypertension, diabetes mellitus, history of cerebrovascular accident with left-sided weakness, hyperlipidemia, bronchial asthma, chronic kidney disease who was admitted because of shortness of breath and chest pain. I was called to see the patient because of elevated BUN and creatinine. The patient was diagnosed here with non-ST elevation [place]. The patient has history of chronic kidney disease. Additional Remarks Patient is alert, breathing is better, not in distress. Objective Data Data 12/18/16 12/19/16 19:00 07:00 Intake Total 780 ml Output Total 800 ml Balance -20 ml Intake Oral 780 ml Output Urine Total 800 ml Vital Signs Date Time Temp Pulse Resp B/P (MAP) Pulse Ox O2 Delivery O2 Flow Rate FiO2 12/18/16 17:43 68 12/18/16 16:00 98.3 62 19 157/76 (103) 96 12/18/16 12:00 98.0 59 19 156/74 (101) 97 12/18/16 08:00 Room Air 12/18/16 08:00 97.7 62 19 161/76 (104) 95 12/18/16 08:00 62 12/18/16 04:54 148/82 (104) 12/18/16 04:00 98.3 74 20 172/84 (113) 98 12/18/16 03:41 160/96 (117) 12/18/16 00:00 98.3 63 19 179/88 (118) 99 12/17/16 21:00 Room Air 12/17/16 20:27 67 12/17/16 20:00 98.4 67 19 165/79 (107) 97 -: 12/18/16 0148 12/18/16 0148 Physical Exam General Appearance: No Acute Distress, Comfortable Eyes Eye Exam: Pupils Equal Throat Throat Exam: Oral Mucosa [place] & Moist Neck Neck Exam: Neck Supple Pulmonary Resp Exam: No Distress, Rhonchi, Decreased Bases, Diminished Breath Sounds Cardiology CV Exam: Regular, Normal Sinus Rhythm Gastrointestinal/Abdomen GI Exam: Soft, Non-Tender, Bowel Sounds Present Extremeties Extremities Exam: Moderate Edema Neurologic Neuro Exam: Alert, Awake Psychiatric Psych Exam: Appropriate Responses Assessment/Plan Assessment Summary: WILLIE/Acute Renal Failure, CHF, CKD Stage IV Problem List: (1) NSTEMI (non-ST elevated myocardial infarction) ICD Codes: I21.4 - Non-ST elevation (NSTEMI) myocardial infarction Status: Resolved (2) Diabetes mellitus ICD Codes: E11.9 - Diabetes mellitus Status: Chronic (3) Asthma ICD Codes: J45.909 - Asthma Status: Chronic (4) Shortness of breath ICD Codes: R06.02 - Shortness of breath Status: Acute (5) Leg edema ICD Codes: R60.0 - Leg edema Status: Acute (6) Hypertension ICD Codes: I10 - Hypertension Status: Chronic (7) CKD (chronic kidney disease) stage 4, GFR 15-29 ml/min ICD Codes: N18.4 - Chronic kidney disease, stage 4 (severe) Status: Acute (8) ARF (acute renal failure) ICD Codes: N17.9 - ARF (acute renal failure) Status: Acute Plan Patient has last HD done on Sat. Creatinine is still elevated, and GFR is low. HD will be in AM. Will consider Renal Biopsy if not better. Has 6 gm of proteinuria. Serology is negative. Most likely has End stage renal disease. Problem Qualifiers (1) Diabetes mellitus: (2) ARF (acute renal failure): Zoey Carbone MD Dec 18, 2016 18:06
[2016-12-18] MEDS: INSULIN DETEMIR 100 UNITS/ML VIAL SQ SCH (20:44)
[2016-12-19] VITALS (7 sets, daily range): BP systolic 146–165; BP diastolic 71–84; PULSE 60–69; RESP 18; TEMP 97.6–98.5; O2SAT 97–98
[2016-12-19] MEDS: HEPARIN-D5W 25,000 U/250 ML 250 ML IV SCH (01:08)
[2016-12-19] MEDS: CHLORHEXIDINE GLUCONATE 2 % 1 PACK (2 CLOTHS) TOP SCH (03:58)
[2016-12-19] MEDS: hydrALAZINE HCL 50 MG TAB PO SCH ×3 (05:16→21:59)
[2016-12-19] MEDS: INSULIN NovoLIN REGULAR SUPPLEMENTAL SCALE SQ SCH ×3 (05:17→17:48)
[2016-12-19 07:26] LABS: BICARBONATE 23.6 MEQ/L (21.0-32.0); POTASSIUM 5.3 MEQ/L (3.5-5.1)
[2016-12-19] MEDS: CHLORHEXIDINE 0.12% (ORAL KIT) 15 ML CUP MT SCH ×2 (08:00→21:53)
[2016-12-19] MEDS: TIOTROPIUM BROMIDE 18 MCG INH INH SCH (09:00)
[2016-12-19] MEDS: BUDESONIDE-FORMOTEROL 160/4.5 MCG INHALER INH SCH ×2 (09:00→21:00)
[2016-12-19] MEDS: SODIUM CHLORIDE 0.9% FLUSH 10 ML FLUSH IVF SCH (09:00)
[2016-12-19] MEDS: ARTIFICIAL TEARS OPTH SOLN 15 ML BTL EACH EYE SCH ×3 (09:00→17:14)
[2016-12-19] MEDS: SODIUM CHLORIDE 0.9% FLUSH 10 ML FLUSH IV FLUSH SCH ×2 (09:00→21:00)
[2016-12-19] MEDS: EPOETIN ALFA 10,000 UNITS/ML VIAL IV PRN (11:15)
[2016-12-19] MEDS: HEPARIN SODIUM - IV 10,000 UNITS/10 ML VIAL PRN (12:15)
[2016-12-19] MEDS: GENTAMICIN SULFATE (DIALYSIS USE ONLY) 20 MG/2 ML VIAL IV PRN (12:15)
[2016-12-19] MEDS: CALCIUM ACETATE 667 MG CAP PO SCH ×3 (13:00→17:13)
[2016-12-19] MEDS: ASPIRIN 81 MG CHEW TAB CHEW SCH (13:35)
[2016-12-19] MEDS: CALCITRIOL 0.25 MCG CAP PO SCH (13:35)
[2016-12-19] MEDS: predniSONE 20 MG TAB PO SCH (13:35)
[2016-12-19] MEDS: CARVEDILOL 6.25 MG TAB PO SCH ×2 (13:35→21:59)
[2016-12-19] MEDS: cloNIDine HCL 0.3 MG TAB PO SCH ×2 (13:36→17:13)
--- NOTE | 2016-12-19 14:45 | HHI.PR ---
Subjective Remarks Follow-up sepsis/LA thrombus/end-stage renal disease requiring hemodialysis 12/18/16-patient seen and examined, BP slightly up. Labile blood glucose. Patient denies any nausea or vomiting. No acute event overnight 12/19/16-patient seen and examined, had hemodialysis today and states he is tired Objective Vitals Vital Signs Date Time Temp Pulse Resp B/P (MAP) Pulse Ox O2 Delivery O2 Flow Rate FiO2 12/19/16 08:00 97.6 61 18 165/79 (107) 98 12/19/16 04:00 97.9 66 18 161/84 (109) 98 12/19/16 04:00 Room Air 12/19/16 00:00 98.4 69 18 164/84 (110) 98 12/19/16 00:00 Room Air 12/18/16 20:09 67 12/18/16 20:00 98.1 68 18 158/76 (103) 96 12/18/16 20:00 Room Air 12/18/16 17:43 68 12/18/16 16:00 98.3 62 19 157/76 (103) 96 I/O 12/18/16 12/18/16 12/18/16 12/19/16 12/19/16 12/19/16 06:59 14:59 22:59 06:59 14:59 22:59 Intake Total 340 ml 901 ml 612.8 ml Output Total 800 ml 800 ml 1150 ml 2500 ml Balance -460 ml 101 ml -537.2 ml -2500 ml Intake Oral 240 ml 780 ml 480 ml IV Total 100 ml 121 ml 132.8 ml Output Urine Total 800 ml 800 ml 1150 ml Hemodialysis 2500 ml # Bowel Movements 0 Result Diagram: 12/18/16 0148 12/19/16 0600 Objective Remarks GENERAL: NAD SKIN: Warm and dry. HEAD: Normocephalic. EYES: No scleral icterus. No injection or drainage. NECK: Supple, trachea midline. No JVD or lymphadenopathy. CARDIOVASCULAR: Regular rate and rhythm without murmurs, gallops, or rubs. RESPIRATORY: Breath sounds equal bilaterally. No accessory muscle use. GASTROINTESTINAL: Abdomen soft, non-tender, nondistended. MUSCULOSKELETAL: No cyanosis; +1edema BLE. BACK: Nontender without obvious deformity. No CVA tenderness. A/P Problem List: (1) Respiratory failure ICD Code: J96.90 - Respiratory failure, unspecified, unspecified whether with hypoxia or hypercapnia Status: Acute (2) Sepsis ICD Code: A41.9 - Sepsis, unspecified organism Status: Acute (3) Pneumonia ICD Code: J18.9 - Pneumonia, unspecified organism Status: Acute (4) left atrial thrombus Status: Acute (5) NSTEMI (non-ST elevated myocardial infarction) ICD Code: I21.4 - Non-ST elevation (NSTEMI) myocardial infarction Status: Resolved (6) ARF (acute renal failure) ICD Code: N17.9 - ARF (acute renal failure) Status: Acute (7) Diabetes mellitus ICD Code: E11.9 - Diabetes mellitus Status: Chronic (8) Morbid obesity ICD Code: E66.01 - Morbid (severe) obesity due to excess calories Status: Acute (9) Severe chronic obstructive pulmonary disease ICD Code: J44.9 - Chronic obstructive pulmonary disease, unspecified Status: Acute (10) CKD (chronic kidney disease) stage 4, GFR 15-29 ml/min ICD Code: N18.4 - Chronic kidney disease, stage 4 (severe) Status: Acute Assessment and Plan 66-year-old man with Acute hypoxic respiratory failure-resolved COPD exacerbation Bilateral lower lobe pneumonias/community acquired Bilateral small effusions Extubated 12/09, tolerating well s/p Solu-Medrol and change prednisone to 20 mg daily Antibiotics as below Nebs, EzPAP, Acapella --CT chest 12/08: Dense bibasilar consolidation left more than right, moderate left effusion --Status post completed antibiotic treatment while hospitalized. --Symbicort and Spiriva NSTEMI LA thrombus Severe sepsis-resolved Hypertensive urgency-resolved -- Continue heparin drip bridging to Coumadin. -- ASA 81 mg daily. Coreg 6.25 mg BID. Norvasc 10 mg daily. Clonidine to 0.3 mg po TID and hydralazine 100 mg by mouth daily 8 hour -- Cardiology -Dr Quadrat. Echo Mildly dilated left ventricle. LVEF 45-50%. There is distinct regional WMA with akinetic apex and possibly clot at the apex. - Biatrial moderate dilatation -- Repeat echo study with contrast/Definity to better asses apex-defer to cardiology New severe acute kidney injury Chronic kidney disease -- Nephrology started HD 12/12/16. -- Renal ultrasound-normal. Positive for proteinuria. -- Awaiting kidney function recovery. Community acquired bilateral lower lobe pneumonia Severe sepsis Patient completed antibiotic therapy on 12/15/16. [place] culture follow up-neg to date -- Received 2 units PRBC 12/08 transfusion for hemoglobin drop to 6.6 from 7.7. Type 2 diabetes-labile blood glucose -- Continue Levemir 15 units at bedtime and SSI Prophylaxis: GI Prophylaxis Protonix DVT Prophylaxis -- SCDs Heparin drip and Coumadin, Problem Qualifiers (1) Sepsis: (2) Pneumonia: (3) ARF (acute renal failure): (4) Diabetes mellitus: Hernandez Gray MD Dec 19, 2016 14:45
--- NOTE | 2016-12-19 16:10 | PD.CARD.PN ---
Subjective Subjective Remarks No CP or SOB, working with PT, weak Objective Medications Current Medications Medications (Trade) Dose Ordered Sig/Abby Route Start Time Stop Time Status Last Admin (D50w (Vial) Inj) 25 ml UNSCH PRN IV PUSH 12/07/16 00:45 (NovoLIN R SUPPLEMENTAL SCALE) 1 Q6HR SQ 12/07/16 06:00 12/19/16 05:17 (Zofran Inj) 4 mg Q6H PRN IV 12/07/16 00:45 Heparin Sodium/ Dextrose 250 ml @ 0 mls/hr TITRATE IV 12/07/16 01:45 Future hold 12/19/16 01:08 (NS Flush) DAILY IVF 12/07/16 15:30 12/19/16 09:00 (NS Flush) UNSCH PRN IVF 12/07/16 15:30 (Peridex 0.12% Liq) 15 ml BID@08,20 MT 12/07/16 20:00 12/19/16 08:00 (Albuterol Neb) 2.5 mg Q2HR NEB PRN NEB 12/07/16 15:30 (NS Flush) 2 ml UNSCH PRN IV FLUSH 12/07/16 15:30 12/12/16 11:32 (NS Flush) 2 ml BID IV FLUSH 12/07/16 21:00 12/19/16 09:00 (Tylenol) 650 mg Q6H PRN PO 12/07/16 15:30 (Tears Naturale Opth Soln) 1 drop TID EACH EYE 12/07/16 18:00 12/19/16 13:00 Miscellaneous Information 1 Q361D XX 12/07/16 15:30 (Chlorhexidine 2% Cloth) Taper DAILY@04 TOP 12/08/16 04:00 12/04/17 03:59 12/14/16 04:00 (Chlorhexidine 2% Cloth) 3 pack UNSCH PRN TOP 12/07/16 15:30 (Milk Of Magnesia Liq) 30 ml Q12H PRN PO 12/07/16 15:30 12/17/16 09:10 (Senokot) 17.2 mg Q12H PRN PO 12/07/16 15:30 12/17/16 09:10 (Aspirin Chew) 81 mg DAILY CHEW 12/08/16 12:00 12/19/16 13:35 (Trandate Inj) 20 mg Q2H PRN IV 12/10/16 00:15 12/14/16 08:05 (Morphine Inj) 2 mg Q3H PRN IV PUSH 12/10/16 09:15 12/12/16 14:04 (Coreg) 6.25 mg Q12HR PO 12/10/16 10:00 12/19/16 13:35 (Phoslo) 1,334 mg TID PO 12/10/16 13:00 12/19/16 13:00 (Rocaltrol) 0.5 mcg DAILY PO 12/10/16 12:45 12/19/16 13:35 (Symbicort 160-4.5 Inh) 1 puff Q12HR INH 12/11/16 12:00 12/19/16 09:00 (Spiriva Inh) 18 mcg DAILY INH 12/11/16 12:00 12/19/16 09:00 (Norvasc) 10 mg DAILY PO 12/11/16 15:15 12/19/16 13:35 (Apresoline Inj) 20 mg Q4H PRN IV PUSH 12/11/16 15:15 12/18/16 04:26 (Catapres) 0.3 mg Q8H PO 12/12/16 08:00 12/19/16 13:36 Sodium Chloride 1,000 ml @ 0 mls/hr Q0M PRN IV 12/12/16 12:11 12/16/16 11:40 (Heparin Inj) 8,000 units UNSCH PRN IVF 12/12/16 12:15 Sodium Chloride 1,000 ml @ 200 mls/hr Q5H PRN IV 12/12/16 12:11 Sodium Chloride 1,000 ml @ 0 mls/hr Q0M PRN IV 12/12/16 12:11 12/12/16 17:04 (Mannitol Inj) 12.5 gm UNSCH PRN IV 12/12/16 12:15 (Albumin 25% Inj) 25 gm UNSCH PRN IV 12/12/16 12:15 (NS Flush) 5 ml UNSCH PRN IV FLUSH 12/12/16 12:15 (Heparin Inj) UNSCH PRN .XX 12/12/16 12:15 12/19/16 12:15 (Gentamicin (Dialysis) Inj) 20 mg UNSCH PRN IV 12/12/16 12:15 12/19/16 12:15 (Zofran Inj) 4 mg UNSCH PRN IV 12/12/16 12:15 (Tylenol) 650 mg UNSCH PRN PO 12/12/16 12:15 (Benadryl) 25 mg UNSCH PRN PO 12/12/16 12:15 (Nitrostat Sl) 0.4 mg UNSCH PRN SL 12/12/16 12:15 (Catapres) 0.1 mg UNSCH PRN PO 12/12/16 12:15 (Epogen Inj) 10,000 units UNSCH PRN IV 12/12/16 12:15 12/19/16 11:15 (Gelfoam 12 Mm/7 Mm Top) 1 foam UNSCH PRN TOP 12/12/16 12:15 (Coumadin) 4 mg DAILY@16 PO 12/13/16 16:00 12/18/16 17:13 Pharmacy Profile Note 0 ml @ 0 mls/hr UNSCH OTHER 12/13/16 12:00 (Apresoline) 100 mg Q8HR PO 12/17/16 22:00 12/19/16 13:38 (Deltasone) 20 mg DAILY PO 12/19/16 09:00 12/20/16 13:00 12/19/16 13:35 (Levemir Inj) 15 units HS SQ 12/18/16 21:00 12/18/16 20:44 Vital Signs / I&O Vital Signs Date Time Temp Pulse Resp B/P (MAP) Pulse Ox O2 Delivery O2 Flow Rate FiO2 12/19/16 08:00 97.6 61 18 165/79 (107) 98 12/19/16 04:00 97.9 66 18 161/84 (109) 98 12/19/16 04:00 Room Air 12/19/16 00:00 98.4 69 18 164/84 (110) 98 12/19/16 00:00 Room Air 12/18/16 20:09 67 12/18/16 20:00 98.1 68 18 158/76 (103) 96 12/18/16 20:00 Room Air 12/18/16 17:43 68 I/O 12/18/16 12/18/16 12/18/16 12/19/1622/17 8/22/17 07:00 15:00 23:00 07:00 15:00 23:00 Intake Total 340 ml 901 ml 612.8 ml Output Total 800 ml 800 ml 1150 ml 2500 ml Balance -460 ml 101 ml -537.2 ml -2500 ml Intake Oral 240 ml 780 ml 480 ml IV Total 100 ml 121 ml 132.8 ml Output Urine Total 800 ml 800 ml 1150 ml Hemodialysis 2500 ml # Bowel Movements 0 Physical Exam GENERAL: In NAD SKIN: Warm and dry. HEAD: Normocephalic. EYES: No scleral icterus. No injection or drainage. NECK: Supple, trachea midline. No JVD or lymphadenopathy. CARDIOVASCULAR: Regular rate and rhythm, mild tachycardia, no murmurs, gallops, or rubs. RESPIRATORY: Breath sounds equal bilaterally. No accessory muscle use. GASTROINTESTINAL: Abdomen soft, non-tender, nondistended. MUSCULOSKELETAL: No cyanosis, mild edema, dry, scaly skin Laboratory Laboratory Tests Test 12/19/16 06:00 Blood Urea Nitrogen 108 MG/DL Creatinine 5.62 MG/DL Random Glucose 327 MG/DL Calcium Level 8.8 MG/DL Sodium Level 130 MEQ/L Potassium Level 5.3 MEQ/L Chloride Level 93 MEQ/L Carbon Dioxide Level 23.6 MEQ/L Anion Gap 13 MEQ/L Estimat Glomerular Filtration Rate 10 ML/MIN Imaging Last Impressions Chest X-Ray 12/13/16 0600 Signed Impressions: Service Date/Time: Tuesday, December 13, 2016 04:54 - CONCLUSION: Persistent lobar consolidation left lower lung. Jose Roberto Cheema MD Chest CT 12/08/16 0000 Signed Impressions: Service Date/Time: Thursday, December 08, 2016 14:02 - CONCLUSION: 1. Bilateral lower lobe consolidating airspace disease. 2. Small to moderate bilateral pleural effusions; larger on the left. 3. Cardiomegaly. 4. Endotracheal and nasogastric tubes in good position. Tutu Christianson MD Renal Ultrasound 12/07/16 0000 Signed Impressions: Service Date/Time: November 07:54 - CONCLUSION: Unremarkable and stable bilateral renal ultrasound. No evidence of hydronephrosis. Baron Medrano MD Assessment and Plan Problem List: (1) Respiratory failure ICD Codes: J96.90 - Respiratory failure, unspecified, unspecified whether with hypoxia or hypercapnia Status: Acute (2) Sepsis ICD Codes: A41.9 - Sepsis, unspecified organism Status: Acute (3) Pneumonia ICD Codes: J18.9 - Pneumonia, unspecified organism Status: Acute (4) ARF (acute renal failure) ICD Codes: N17.9 - ARF (acute renal failure) Status: Acute (5) Elevated troponin ICD Codes: R74.8 - Abnormal levels of other serum enzymes Status: Acute (6) Diabetes mellitus ICD Codes: E11.9 - Diabetes mellitus Status: Chronic (7) Hypertension ICD Codes: I10 - Hypertension Status: Chronic (8) Morbid obesity ICD Codes: E66.01 - Morbid (severe) obesity due to excess calories Status: Acute (9) Anemia ICD Codes: D64.9 - Anemia Status: Acute Assessment and Plan BP better controlled, continue and titrate therapy for severe HTN. Continue dialysis. Continue aggressive risk factor modification. Increase activity, continue PT, still quite weak. Problem Qualifiers (1) Sepsis: (2) Pneumonia: (3) ARF (acute renal failure): (4) Diabetes mellitus: (5) Anemia: Mark Chapin MD Dec 19, 2016 16:10
[2016-12-19] MEDS: WARFARIN SOD 4 MG TAB PO SCH (17:13)
[2016-12-19 18:14] LABS: INTERNATIONAL NORMALIZED RATIO 1.4 RATIO; PROTHROMBIN TIME - PATIENT 16.2 SEC (9.8-11.6)
--- NOTE | 2016-12-19 18:21 | HHI.NPPN ---
Subjective History of Present Illness 66-year-old male with past medical history of hypertension, diabetes mellitus, history of cerebrovascular accident with left-sided weakness, hyperlipidemia, bronchial asthma, chronic kidney disease who was admitted because of shortness of breath and chest pain. I was called to see the patient because of elevated BUN and creatinine. The patient was diagnosed here with non-ST elevation MD. The patient has history of chronic kidney disease. Additional Remarks Patient is alert, breathing is better, not in distress, clinically same. Objective Data Data 12/19/16 12/20/16 19:00 07:00 Intake Total 720 ml Output Total 3500 ml Balance -2780 ml Intake Oral 720 ml Output Urine Total 1000 ml Hemodialysis 2500 ml Vital Signs Date Time Temp Pulse Resp B/P (MAP) Pulse Ox O2 Delivery O2 Flow Rate FiO2 12/19/16 16:00 97.9 66 18 146/71 (96) 97 12/19/16 09:00 60 12/19/16 08:00 97.6 61 18 165/79 (107) 98 12/19/16 04:00 97.9 66 18 161/84 (109) 98 12/19/16 04:00 Room Air 12/19/16 00:00 98.4 69 18 164/84 (110) 98 12/19/16 00:00 Room Air 12/18/16 20:09 67 12/18/16 20:00 98.1 68 18 158/76 (103) 96 12/18/16 20:00 Room Air -: 12/18/16 0148 12/19/16 0600 Physical Exam General Appearance: No Acute Distress, Comfortable Eyes Eye Exam: Pupils Equal Throat Throat Exam: Oral Mucosa [place] & Moist Neck Neck Exam: Neck Supple Pulmonary Resp Exam: No Distress, Rhonchi, Decreased Bases, Diminished Breath Sounds Cardiology CV Exam: Regular, Normal Sinus Rhythm Gastrointestinal/Abdomen GI Exam: Soft, Non-Tender, Bowel Sounds Present Extremeties Extremities Exam: Moderate Edema Neurologic Neuro Exam: Alert, Awake Psychiatric Psych Exam: Appropriate Responses Assessment/Plan Assessment Summary: WILLIE/Acute Renal Failure, CHF, CKD Stage IV Problem List: (1) NSTEMI (non-ST elevated myocardial infarction) ICD Codes: I21.4 - Non-ST elevation (NSTEMI) myocardial infarction Status: Resolved (2) Diabetes mellitus ICD Codes: E11.9 - Diabetes mellitus Status: Chronic (3) Asthma ICD Codes: J45.909 - Asthma Status: Chronic (4) Shortness of breath ICD Codes: R06.02 - Shortness of breath Status: Acute (5) Leg edema ICD Codes: R60.0 - Leg edema Status: Acute (6) Hypertension ICD Codes: I10 - Hypertension Status: Chronic (7) CKD (chronic kidney disease) stage 4, GFR 15-29 ml/min ICD Codes: N18.4 - Chronic kidney disease, stage 4 (severe) Status: Acute (8) ARF (acute renal failure) ICD Codes: N17.9 - ARF (acute renal failure) Status: Acute Plan Patient has last HD done in AM. Creatinine is still elevated, and GFR is low. Will consider Renal Biopsy if not better. Has 6 gm of proteinuria. Serology is negative. Most likely has End stage renal disease. On IV Heparin and Coumadin. Problem Qualifiers (1) Diabetes mellitus: (2) ARF (acute renal failure): Zoey Carbone MD Dec 19, 2016 18:21
[2016-12-19] MEDS: INSULIN DETEMIR 100 UNITS/ML VIAL SQ SCH (21:59)
[2016-12-20] VITALS (10 sets, daily range): BP systolic 151–174; BP diastolic 71–80; PULSE 60–71; RESP 16–20; TEMP 97.6–98.7; O2SAT 92–100
[2016-12-20] MEDS: cloNIDine HCL 0.3 MG TAB PO SCH ×3 (01:12→18:17)
[2016-12-20] MEDS: INSULIN NovoLIN REGULAR SUPPLEMENTAL SCALE SQ SCH ×4 (01:12→18:27)
[2016-12-20 01:58] LABS: APTT (PATIENT) 64.3 SEC (24.3-30.1)
[2016-12-20] MEDS: HEPARIN-D5W 25,000 U/250 ML 250 ML IV SCH (03:39)
[2016-12-20] MEDS: CHLORHEXIDINE GLUCONATE 2 % 1 PACK (2 CLOTHS) TOP SCH (04:00)
[2016-12-20] MEDS: hydrALAZINE HCL 50 MG TAB PO SCH ×3 (06:12→21:20)
[2016-12-20] MEDS: CHLORHEXIDINE 0.12% (ORAL KIT) 15 ML CUP MT SCH ×2 (08:00→20:00)
[2016-12-20 08:42] LABS: INTERNATIONAL NORMALIZED RATIO 1.5 RATIO; PROTHROMBIN TIME - PATIENT 16.3 SEC (9.8-11.6)
[2016-12-20] MEDS: SODIUM CHLORIDE 0.9% FLUSH 10 ML FLUSH IVF SCH (09:00)
--- NOTE | 2016-12-20 10:16 | HHI.PR ---
Subjective Remarks Follow-up sepsis/LA thrombus/end-stage renal disease requiring hemodialysis 12/18/16-patient seen and examined, BP slightly up. Labile blood glucose. Patient denies any nausea or vomiting. No acute event overnight 12/19/16-patient seen and examined, had hemodialysis today and states he is tired 12/20/16-patient seen and examined; denies any chest pain or shortness of breath. Complains of urinary retention since Young was removed yesterday Objective Vitals Vital Signs Date Time Temp Pulse Resp B/P (MAP) Pulse Ox O2 Delivery O2 Flow Rate FiO2 12/20/16 07:44 60 12/20/16 04:00 97.8 61 18 171/79 (109) 96 12/20/16 00:00 98.3 63 18 151/76 (101) 97 12/19/16 20:25 64 12/19/16 20:00 98.5 65 18 157/74 (101) 98 12/19/16 19:35 Room Air 12/19/16 16:00 97.9 66 18 146/71 (96) 97 I/O 12/19/16 12/19/16 12/19/16 12/20/16 12/20/16 12/20/16 07:00 15:00 23:00 07:00 15:00 23:00 Intake Total 612.8 ml 720 ml 730 ml Output Total 1150 ml 2500 ml 1000 ml 1200 ml Balance -537.2 ml -2500 ml -280 ml -470 ml Intake Oral 480 ml 720 ml 480 ml IV Total 132.8 ml 250 ml Output Urine Total 1150 ml 1000 ml 1200 ml Hemodialysis 2500 ml Bladder Scan Volume Amount 500 ml 486 ml 500 ml # Bowel Movements 0 0 Result Diagram: 12/18/16 0148 12/19/16 0600 Objective Remarks GENERAL: NAD SKIN: Warm and dry. HEAD: Normocephalic. EYES: No scleral icterus. No injection or drainage. NECK: Supple, trachea midline. No JVD or lymphadenopathy. CARDIOVASCULAR: Regular rate and rhythm without murmurs, gallops, or rubs. RESPIRATORY: Breath sounds equal bilaterally. No accessory muscle use. GASTROINTESTINAL: Abdomen soft, non-tender, nondistended. MUSCULOSKELETAL: No cyanosis; +1edema BLE. BACK: Nontender without obvious deformity. No CVA tenderness. A/P Problem List: (1) Respiratory failure ICD Code: J96.90 - Respiratory failure, unspecified, unspecified whether with hypoxia or hypercapnia Status: Acute (2) Sepsis ICD Code: A41.9 - Sepsis, unspecified organism Status: Acute (3) Pneumonia ICD Code: J18.9 - Pneumonia, unspecified organism Status: Acute (4) left atrial thrombus Status: Acute (5) NSTEMI (non-ST elevated myocardial infarction) ICD Code: I21.4 - Non-ST elevation (NSTEMI) myocardial infarction Status: Resolved (6) ARF (acute renal failure) ICD Code: N17.9 - ARF (acute renal failure) Status: Acute (7) Diabetes mellitus ICD Code: E11.9 - Diabetes mellitus Status: Chronic (8) Morbid obesity ICD Code: E66.01 - Morbid (severe) obesity due to excess calories Status: Acute (9) Severe chronic obstructive pulmonary disease ICD Code: J44.9 - Chronic obstructive pulmonary disease, unspecified Status: Acute (10) CKD (chronic kidney disease) stage 4, GFR 15-29 ml/min ICD Code: N18.4 - Chronic kidney disease, stage 4 (severe) Status: Acute Assessment and Plan 66-year-old man with Acute hypoxic respiratory failure-resolved COPD exacerbation Bilateral lower lobe pneumonias/community acquired Bilateral small effusions Extubated 12/09, tolerating well prednisone 20 mg daily Nebs, EzPAP, Acapella --CT chest 12/08: Dense bibasilar consolidation left more than right, moderate left effusion --Status post completed antibiotic treatment while hospitalized. --Symbicort and Spiriva NSTEMI LA thrombus Severe sepsis-resolved Hypertensive urgency-resolved -- Continue heparin drip bridging to Coumadin. -- ASA 81 mg daily. Coreg 6.25 mg BID. Norvasc 10 mg daily. Clonidine to 0.3 mg po TID and hydralazine 100 mg by mouth daily 8 hour -- Cardiology -Dr Quadrat. Echo Mildly dilated left ventricle. LVEF 45-50%. There is distinct regional WMA with akinetic apex and possibly clot at the apex. - Biatrial moderate dilatation New severe acute kidney injury Chronic kidney disease -- Nephrology started HD 12/12/16. -- Renal ultrasound-normal. Positive for proteinuria. -- Awaiting kidney function recovery. Community acquired bilateral lower lobe pneumonia Severe sepsis Patient completed antibiotic therapy on 12/15/16. [place] culture follow up-neg to date -- Received 2 units PRBC 12/08 transfusion for hemoglobin drop to 6.6 from 7.7. Type 2 diabetes-labile blood glucose -- Increase Levemir to 20 units at bedtime and SSI Urinary retention/BPH --Start Flomax 0.4 mg daily Prophylaxis: GI Prophylaxis Protonix DVT Prophylaxis -- SCDs Heparin drip and Coumadin, Problem Qualifiers (1) Sepsis: (2) Pneumonia: (3) ARF (acute renal failure): (4) Diabetes mellitus: Hernandez Gray MD Dec 20, 2016 10:16
[2016-12-20] MEDS: ASPIRIN 81 MG CHEW TAB CHEW SCH (10:21)
[2016-12-20] MEDS: predniSONE 20 MG TAB PO SCH (10:21)
[2016-12-20] MEDS: CALCIUM ACETATE 667 MG CAP PO SCH ×3 (10:21→18:17)
[2016-12-20] MEDS: CARVEDILOL 6.25 MG TAB PO SCH ×2 (10:21→21:20)
[2016-12-20] MEDS: CALCITRIOL 0.25 MCG CAP PO SCH (10:21)
[2016-12-20] MEDS: TIOTROPIUM BROMIDE 18 MCG INH INH SCH (10:22)
[2016-12-20] MEDS: ARTIFICIAL TEARS OPTH SOLN 15 ML BTL EACH EYE SCH ×3 (10:22→18:17)
[2016-12-20] MEDS: BUDESONIDE-FORMOTEROL 160/4.5 MCG INHALER INH SCH ×2 (10:23→21:20)
[2016-12-20] MEDS: SODIUM CHLORIDE 0.9% FLUSH 10 ML FLUSH IV FLUSH SCH ×2 (10:23→21:00)
--- NOTE | 2016-12-20 16:47 | HHI.NPPN ---
Subjective History of Present Illness 66-year-old male with past medical history of hypertension, diabetes mellitus, history of cerebrovascular accident with left-sided weakness, hyperlipidemia, bronchial asthma, chronic kidney disease who was admitted because of shortness of breath and chest pain. I was called to see the patient because of elevated BUN and creatinine. The patient was diagnosed here with non-ST elevation MA. The patient has history of chronic kidney disease. Additional Remarks Patient is alert, eating well, no SOB. Objective Data Data 12/20/16 12/21/16 19:00 07:00 Bladder Scan Volume Amount 486 ml Vital Signs Date Time Temp Pulse Resp B/P (MAP) Pulse Ox O2 Delivery O2 Flow Rate FiO2 12/20/16 12:02 98.4 63 18 166/77 (106) 97 12/20/16 10:57 97 12/20/16 08:00 98.7 64 20 167/76 (106) 96 12/20/16 07:44 60 12/20/16 04:00 97.8 61 18 171/79 (109) 96 12/20/16 00:00 98.3 63 18 151/76 (101) 97 12/19/16 20:25 64 12/19/16 20:00 98.5 65 18 157/74 (101) 98 12/19/16 19:35 Room Air -: 12/18/16 0148 12/19/16 0600 Physical Exam General Appearance: No Acute Distress, Comfortable Eyes Eye Exam: Pupils Equal Throat Throat Exam: Oral Mucosa [place] & Moist Neck Neck Exam: Neck Supple Pulmonary Resp Exam: No Distress, Rhonchi, Decreased Bases, Diminished Breath Sounds Cardiology CV Exam: Regular, Normal Sinus Rhythm Gastrointestinal/Abdomen GI Exam: Soft, Non-Tender, Bowel Sounds Present Extremeties Extremities Exam: Moderate Edema Neurologic Neuro Exam: Alert, Awake Psychiatric Psych Exam: Appropriate Responses Assessment/Plan Assessment Summary: WILLIE/Acute Renal Failure, CHF, CKD Stage IV Problem List: (1) NSTEMI (non-ST elevated myocardial infarction) ICD Codes: I21.4 - Non-ST elevation (NSTEMI) myocardial infarction Status: Resolved (2) Diabetes mellitus ICD Codes: E11.9 - Diabetes mellitus Status: Chronic (3) Asthma ICD Codes: J45.909 - Asthma Status: Chronic (4) Shortness of breath ICD Codes: R06.02 - Shortness of breath Status: Acute (5) Leg edema ICD Codes: R60.0 - Leg edema Status: Acute (6) Hypertension ICD Codes: I10 - Hypertension Status: Chronic (7) CKD (chronic kidney disease) stage 4, GFR 15-29 ml/min ICD Codes: N18.4 - Chronic kidney disease, stage 4 (severe) Status: Acute (8) ARF (acute renal failure) ICD Codes: N17.9 - ARF (acute renal failure) Status: Acute Plan Patient has last HD done yesterday. Creatinine is still elevated, and GFR is low. Will consider Renal Biopsy if not better. Has 6 gm of proteinuria. Serology is negative. Most likely has End stage renal disease. On IV Heparin and Coumadin. Possible Kidney Biopsy and PermCath on Sunday if not better. Problem Qualifiers (1) Diabetes mellitus: (2) ARF (acute renal failure): Zoey Carbone MD Dec 20, 2016 16:47
--- NOTE | 2016-12-20 17:53 | PD.CARD.PN ---
Subjective Subjective Remarks No CP or SOB, feels fine Objective Medications Current Medications Medications (Trade) Dose Ordered Sig/Abby Route Start Time Stop Time Status Last Admin (D50w (Vial) Inj) 25 ml UNSCH PRN IV PUSH 12/07/16 00:45 (NovoLIN R SUPPLEMENTAL SCALE) 1 Q6HR SQ 12/07/16 06:00 12/20/16 11:59 (Zofran Inj) 4 mg Q6H PRN IV 12/07/16 00:45 Heparin Sodium/ Dextrose 250 ml @ 0 mls/hr TITRATE IV 12/07/16 01:45 Future hold 12/20/16 03:39 (NS Flush) DAILY IVF 12/07/16 15:30 12/19/16 09:00 (NS Flush) UNSCH PRN IVF 12/07/16 15:30 (Peridex 0.12% Liq) 15 ml BID@08,20 MT 12/07/16 20:00 12/19/16 21:53 (Albuterol Neb) 2.5 mg Q2HR NEB PRN NEB 12/07/16 15:30 (NS Flush) 2 ml UNSCH PRN IV FLUSH 12/07/16 15:30 12/12/16 11:32 (NS Flush) 2 ml BID IV FLUSH 12/07/16 21:00 12/20/16 10:23 (Tylenol) 650 mg Q6H PRN PO 12/07/16 15:30 (Tears Naturale Opth Soln) 1 drop TID EACH EYE 12/07/16 18:00 12/20/16 11:59 Miscellaneous Information 1 Q361D XX 12/07/16 15:30 (Chlorhexidine 2% Cloth) Taper DAILY@04 TOP 12/08/16 04:00 12/04/17 03:59 12/14/16 04:00 (Chlorhexidine 2% Cloth) 3 pack UNSCH PRN TOP 12/07/16 15:30 (Milk Of Magnesia Liq) 30 ml Q12H PRN PO 12/07/16 15:30 12/17/16 09:10 (Senokot) 17.2 mg Q12H PRN PO 12/07/16 15:30 12/17/16 09:10 (Aspirin Chew) 81 mg DAILY CHEW 12/08/16 12:00 12/20/16 10:21 (Trandate Inj) 20 mg Q2H PRN IV 12/10/16 00:15 12/14/16 08:05 (Morphine Inj) 2 mg Q3H PRN IV PUSH 12/10/16 09:15 12/12/16 14:04 (Coreg) 6.25 mg Q12HR PO 12/10/16 10:00 12/20/16 10:21 (Phoslo) 1,334 mg TID PO 12/10/16 13:00 12/20/16 11:59 (Rocaltrol) 0.5 mcg DAILY PO 12/10/16 12:45 12/20/16 10:21 (Symbicort 160-4.5 Inh) 1 puff Q12HR INH 12/11/16 12:00 12/20/16 10:23 (Spiriva Inh) 18 mcg DAILY INH 12/11/16 12:00 12/20/16 10:22 (Norvasc) 10 mg DAILY PO 12/11/16 15:15 12/20/16 10:21 (Apresoline Inj) 20 mg Q4H PRN IV PUSH 12/11/16 15:15 12/18/16 04:26 (Catapres) 0.3 mg Q8H PO 12/12/16 08:00 12/20/16 10:21 Sodium Chloride 1,000 ml @ 0 mls/hr Q0M PRN IV 12/12/16 12:11 12/16/16 11:40 (Heparin Inj) 8,000 units UNSCH PRN IVF 12/12/16 12:15 Sodium Chloride 1,000 ml @ 200 mls/hr Q5H PRN IV 12/12/16 12:11 Sodium Chloride 1,000 ml @ 0 mls/hr Q0M PRN IV 12/12/16 12:11 12/12/16 17:04 (Mannitol Inj) 12.5 gm UNSCH PRN IV 12/12/16 12:15 (Albumin 25% Inj) 25 gm UNSCH PRN IV 12/12/16 12:15 (NS Flush) 5 ml UNSCH PRN IV FLUSH 12/12/16 12:15 (Heparin Inj) UNSCH PRN .XX 12/12/16 12:15 12/19/16 12:15 (Gentamicin (Dialysis) Inj) 20 mg UNSCH PRN IV 12/12/16 12:15 12/19/16 12:15 (Zofran Inj) 4 mg UNSCH PRN IV 12/12/16 12:15 (Tylenol) 650 mg UNSCH PRN PO 12/12/16 12:15 (Benadryl) 25 mg UNSCH PRN PO 12/12/16 12:15 (Nitrostat Sl) 0.4 mg UNSCH PRN SL 12/12/16 12:15 (Catapres) 0.1 mg UNSCH PRN PO 12/12/16 12:15 (Epogen Inj) 10,000 units UNSCH PRN IV 12/12/16 12:15 12/19/16 11:15 (Gelfoam 12 Mm/7 Mm Top) 1 foam UNSCH PRN TOP 12/12/16 12:15 (Coumadin) 4 mg DAILY@16 PO 12/13/16 16:00 12/19/16 17:13 Pharmacy Profile Note 0 ml @ 0 mls/hr UNSCH OTHER 12/13/16 12:00 (Apresoline) 100 mg Q8HR PO 12/17/16 22:00 12/20/16 14:40 (Flomax) 0.4 mg DAILY PO 12/21/16 09:00 (Levemir Inj) 20 units HS SQ 12/20/16 21:00 Vital Signs / I&O Vital Signs Date Time Temp Pulse Resp B/P (MAP) Pulse Ox O2 Delivery O2 Flow Rate FiO2 12/20/16 12:02 98.4 63 18 166/77 (106) 97 12/20/16 10:57 97 12/20/16 08:00 98.7 64 20 167/76 (106) 96 12/20/16 07:44 60 12/20/16 04:00 97.8 61 18 171/79 (109) 96 12/20/16 00:00 98.3 63 18 151/76 (101) 97 12/19/16 20:25 64 12/19/16 20:00 98.5 65 18 157/74 (101) 98 12/19/16 19:35 Room Air I/O 12/19/16 12/19/16 12/19/16 12/20/16 12/20/16 12/20/16 07:00 15:00 23:00 07:00 15:00 23:00 Intake Total 612.8 ml 720 ml 730 ml Output Total 1150 ml 2500 ml 1000 ml 1200 ml Balance -537.2 ml -2500 ml -280 ml -470 ml Intake Oral 480 ml 720 ml 480 ml IV Total 132.8 ml 250 ml Output Urine Total 1150 ml 1000 ml 1200 ml Hemodialysis 2500 ml Bladder Scan Volume Amount 500 ml 486 ml 500 ml # Bowel Movements 0 0 Physical Exam GENERAL: In NAD SKIN: Warm and dry. HEAD: Normocephalic. EYES: No scleral icterus. No injection or drainage. NECK: Supple, trachea midline. No JVD or lymphadenopathy. CARDIOVASCULAR: Regular rate and rhythm, mild tachycardia, no murmurs, gallops, or rubs. RESPIRATORY: Breath sounds equal bilaterally. No accessory muscle use. GASTROINTESTINAL: Abdomen soft, non-tender, nondistended. MUSCULOSKELETAL: No cyanosis, mild edema, dry, scaly skin Laboratory Laboratory Tests Test 12/20/16 01:05 12/20/16 06:37 Activated Partial Thromboplast Time 64.3 SEC 73.0 SEC Prothrombin Time 16.3 SEC Prothromb Time International Ratio 1.5 RATIO Imaging Last Impressions Chest X-Ray 12/13/16 0600 Signed Impressions: Service Date/Time: Tuesday, December 13, 2016 04:54 - CONCLUSION: Persistent lobar consolidation left lower lung. Jose Roberto Cheema MD Chest CT 12/08/16 0000 Signed Impressions: Service Date/Time: Thursday, December 08, 2016 14:02 - CONCLUSION: 1. Bilateral lower lobe consolidating airspace disease. 2. Small to moderate bilateral pleural effusions; larger on the left. 3. Cardiomegaly. 4. Endotracheal and nasogastric tubes in good position. Tutu Christianson MD Renal Ultrasound 12/07/16 0000 Signed Impressions: Service Date/Time: November 07:54 - CONCLUSION: Unremarkable and stable bilateral renal ultrasound. No evidence of hydronephrosis. Baron Medrano MD Assessment and Plan Problem List: (1) Respiratory failure ICD Codes: J96.90 - Respiratory failure, unspecified, unspecified whether with hypoxia or hypercapnia Status: Acute (2) Sepsis ICD Codes: A41.9 - Sepsis, unspecified organism Status: Acute (3) Pneumonia ICD Codes: J18.9 - Pneumonia, unspecified organism Status: Acute (4) ARF (acute renal failure) ICD Codes: N17.9 - ARF (acute renal failure) Status: Acute (5) Elevated troponin ICD Codes: R74.8 - Abnormal levels of other serum enzymes Status: Acute (6) Diabetes mellitus ICD Codes: E11.9 - Diabetes mellitus Status: Chronic (7) Hypertension ICD Codes: I10 - Hypertension Status: Chronic (8) Morbid obesity ICD Codes: E66.01 - Morbid (severe) obesity due to excess calories Status: Acute (9) Anemia ICD Codes: D64.9 - Anemia Status: Acute Assessment and Plan No new cardiac issues. BP better controlled, continue and titrate therapy for severe HTN. Continue aggressive risk factor modification. Increase activity, continue PT. Problem Qualifiers (1) Sepsis: (2) Pneumonia: (3) ARF (acute renal failure): (4) Diabetes mellitus: (5) Anemia: Mark Chapin MD Dec 20, 2016 17:53
[2016-12-20] MEDS: WARFARIN SOD 4 MG TAB PO SCH (18:17)
[2016-12-20] MEDS: INSULIN DETEMIR 100 UNITS/ML VIAL SQ SCH (21:25)
[2016-12-21] VITALS (7 sets, daily range): BP systolic 143–168; BP diastolic 66–77; PULSE 57–66; RESP 16–19; TEMP 97.1–98.4; O2SAT 93–96
[2016-12-21] MEDS: HEPARIN-D5W 25,000 U/250 ML 250 ML IV SCH ×2 (01:28→22:19)
[2016-12-21] MEDS: CHLORHEXIDINE GLUCONATE 2 % 1 PACK (2 CLOTHS) TOP SCH (03:20)
[2016-12-21] MEDS: INSULIN NovoLIN REGULAR SUPPLEMENTAL SCALE SQ SCH ×4 (06:00→18:04)
[2016-12-21] MEDS: hydrALAZINE HCL 50 MG TAB PO SCH ×3 (06:03→20:54)
[2016-12-21] MEDS: CHLORHEXIDINE 0.12% (ORAL KIT) 15 ML CUP MT SCH ×2 (08:00→20:00)
[2016-12-21] MEDS: ASPIRIN 81 MG CHEW TAB CHEW SCH (08:09)
[2016-12-21] MEDS: CALCIUM ACETATE 667 MG CAP PO SCH ×3 (08:09→18:05)
[2016-12-21] MEDS: ARTIFICIAL TEARS OPTH SOLN 15 ML BTL EACH EYE SCH ×3 (08:09→18:00)
[2016-12-21] MEDS: CARVEDILOL 6.25 MG TAB PO SCH ×2 (08:09→20:54)
[2016-12-21] MEDS: cloNIDine HCL 0.3 MG TAB PO SCH ×3 (08:09→16:47)
[2016-12-21] MEDS: TAMSULOSIN HCL 0.4 MG CAP PO SCH (08:09)
[2016-12-21] MEDS: CALCITRIOL 0.25 MCG CAP PO SCH (08:09)
[2016-12-21] MEDS: SODIUM CHLORIDE 0.9% FLUSH 10 ML FLUSH IV FLUSH SCH ×2 (08:12→20:54)
[2016-12-21] MEDS: SODIUM CHLORIDE 0.9% FLUSH 10 ML FLUSH IVF SCH (08:12)
[2016-12-21] MEDS: BUDESONIDE-FORMOTEROL 160/4.5 MCG INHALER INH SCH ×2 (08:12→22:17)
[2016-12-21] MEDS: TIOTROPIUM BROMIDE 18 MCG INH INH SCH (08:12)
[2016-12-21 08:26] LABS: AUTOMATED NEUTROPHIL # 12.4 TH/MM3 (1.8-7.7); EOSINOPHIL % 0.2 % (0.0-4.0); HEMATOCRIT 26.6 % (39.0-51.0); HEMO FLAGS DIFF FINAL; LYMPH % 7.1 % (9.0-44.0); MEAN CELL VOLUME 89.9 FL (80.0-100.0); MEAN CORPUSCULAR HEMOGLOBIN 29.8 PG (27.0-34.0); MEAN CORPUSCULAR HGB CONC 33.1 % (32.0-36.0); MONO % 8.4 % (0.0-8.0); NEUT % 84.3 % (16.0-70.0); PLATELET COUNT 177 TH/MM3 (150-450); RED BLOOD COUNT 2.96 MIL/MM3 (4.50-5.90); WHITE BLOOD COUNT 14.8 TH/MM3 (4.0-11.0)
[2016-12-21 08:38] LABS: BICARBONATE 24.7 MEQ/L (21.0-32.0); POTASSIUM 4.8 MEQ/L (3.5-5.1)
[2016-12-21 08:39] LABS: APTT (PATIENT) 75.9 SEC (24.3-30.1); INTERNATIONAL NORMALIZED RATIO 1.4 RATIO; PROTHROMBIN TIME - PATIENT 15.5 SEC (9.8-11.6)
--- NOTE | 2016-12-21 10:37 | PD.CARD.PN ---
Subjective Subjective Remarks In dialysis, tolerated well, lost total of 14 kg since dialysis started, no CP or SOB Objective Medications Current Medications Medications (Trade) Dose Ordered Sig/Abby Route Start Time Stop Time Status Last Admin (D50w (Vial) Inj) 25 ml UNSCH PRN IV PUSH 12/07/16 00:45 (NovoLIN R SUPPLEMENTAL SCALE) 1 Q6HR SQ 12/07/16 06:00 12/21/16 06:00 (Zofran Inj) 4 mg Q6H PRN IV 12/07/16 00:45 Heparin Sodium/ Dextrose 250 ml @ 0 mls/hr TITRATE IV 12/07/16 01:45 Future hold 12/21/16 01:28 (NS Flush) DAILY IVF 12/07/16 15:30 12/19/16 09:00 (NS Flush) UNSCH PRN IVF 12/07/16 15:30 (Peridex 0.12% Liq) 15 ml BID@08,20 MT 12/07/16 20:00 12/20/16 20:00 (Albuterol Neb) 2.5 mg Q2HR NEB PRN NEB 12/07/16 15:30 (NS Flush) 2 ml UNSCH PRN IV FLUSH 12/07/16 15:30 12/12/16 11:32 (NS Flush) 2 ml BID IV FLUSH 12/07/16 21:00 12/20/16 10:23 (Tylenol) 650 mg Q6H PRN PO 12/07/16 15:30 (Tears Naturale Opth Soln) 1 drop TID EACH EYE 12/07/16 18:00 12/21/16 08:09 Miscellaneous Information 1 Q361D XX 12/07/16 15:30 (Chlorhexidine 2% Cloth) Taper DAILY@04 TOP 12/08/16 04:00 12/04/17 03:59 12/14/16 04:00 (Chlorhexidine 2% Cloth) 3 pack UNSCH PRN TOP 12/07/16 15:30 (Milk Of Magnesia Liq) 30 ml Q12H PRN PO 12/07/16 15:30 12/17/16 09:10 (Senokot) 17.2 mg Q12H PRN PO 12/07/16 15:30 12/17/16 09:10 (Aspirin Chew) 81 mg DAILY CHEW 12/08/16 12:00 12/21/16 08:09 (Trandate Inj) 20 mg Q2H PRN IV 12/10/16 00:15 12/14/16 08:05 (Morphine Inj) 2 mg Q3H PRN IV PUSH 12/10/16 09:15 12/12/16 14:04 (Coreg) 6.25 mg Q12HR PO 12/10/16 10:00 12/21/16 08:09 (Phoslo) 1,334 mg TID PO 12/10/16 13:00 12/21/16 08:09 (Rocaltrol) 0.5 mcg DAILY PO 12/10/16 12:45 12/21/16 08:09 (Symbicort 160-4.5 Inh) 1 puff Q12HR INH 12/11/16 12:00 12/20/16 21:20 (Spiriva Inh) 18 mcg DAILY INH 12/11/16 12:00 12/20/16 10:22 (Norvasc) 10 mg DAILY PO 12/11/16 15:15 12/21/16 08:09 (Apresoline Inj) 20 mg Q4H PRN IV PUSH 12/11/16 15:15 12/18/16 04:26 (Catapres) 0.3 mg Q8H PO 12/12/16 08:00 12/21/16 08:09 Sodium Chloride 1,000 ml @ 0 mls/hr Q0M PRN IV 12/12/16 12:11 12/16/16 11:40 (Heparin Inj) 8,000 units UNSCH PRN IVF 12/12/16 12:15 Sodium Chloride 1,000 ml @ 200 mls/hr Q5H PRN IV 12/12/16 12:11 Sodium Chloride 1,000 ml @ 0 mls/hr Q0M PRN IV 12/12/16 12:11 12/12/16 17:04 (Mannitol Inj) 12.5 gm UNSCH PRN IV 12/12/16 12:15 (Albumin 25% Inj) 25 gm UNSCH PRN IV 12/12/16 12:15 (NS Flush) 5 ml UNSCH PRN IV FLUSH 12/12/16 12:15 (Heparin Inj) UNSCH PRN .XX 8/15/17 12:15 12/19/16 12:15 (Gentamicin (Dialysis) Inj) 20 mg UNSCH PRN IV 12/12/16 12:15 12/19/16 12:15 (Zofran Inj) 4 mg UNSCH PRN IV 12/12/16 12:15 (Tylenol) 650 mg UNSCH PRN PO 12/12/16 12:15 (Benadryl) 25 mg UNSCH PRN PO 12/12/16 12:15 (Nitrostat Sl) 0.4 mg UNSCH PRN SL 12/12/16 12:15 (Catapres) 0.1 mg UNSCH PRN PO 12/12/16 12:15 (Epogen Inj) 10,000 units UNSCH PRN IV 12/12/16 12:15 12/19/16 11:15 (Gelfoam 12 Mm/7 Mm Top) 1 foam UNSCH PRN TOP 12/12/16 12:15 (Coumadin) 4 mg DAILY@16 PO 12/13/16 16:00 12/20/16 18:17 Pharmacy Profile Note 0 ml @ 0 mls/hr UNSCH OTHER 12/13/16 12:00 (Apresoline) 100 mg Q8HR PO 12/17/16 22:00 12/21/16 06:03 (Flomax) 0.4 mg DAILY PO 12/21/16 09:00 12/21/16 08:09 (Levemir Inj) 20 units HS SQ 12/20/16 21:00 12/20/16 21:25 Vital Signs / I&O Vital Signs Date Time Temp Pulse Resp B/P (MAP) Pulse Ox O2 Delivery O2 Flow Rate FiO2 12/21/16 08:03 97.3 59 18 168/77 (107) 96 12/21/16 04:30 97.7 57 16 162/75 (104) 94 12/20/16 23:40 97.9 66 16 164/75 (104) 97 12/20/16 21:00 98.3 71 16 152/71 (98) 92 Automatic Cuff 12/20/16 20:08 Room Air 12/20/16 20:00 69 12/20/16 16:00 97.6 70 20 174/80 (111) 100 12/20/16 12:02 98.4 63 18 166/77 (106) 97 12/20/16 10:57 97 I/O 12/20/16 12/20/16 12/20/16 12/21/16 12/21/16 12/21/16 06:59 14:59 22:59 06:59 14:59 22:59 Intake Total 730 ml 1066 ml 480 ml Output Total 1200 ml 1000 ml 1600 ml Balance -470 ml 66 ml -1120 ml Intake Oral 480 ml 480 ml 480 ml IV Total 250 ml 586 ml Output Urine Total 1200 ml 1000 ml 1600 ml Bladder Scan Volume Amount 500 ml 486 ml 500 ml # Bowel Movements 0 0 0 Physical Exam GENERAL: In NAD SKIN: Warm and dry. HEAD: Normocephalic. EYES: No scleral icterus. No injection or drainage. NECK: Supple, trachea midline. No JVD or lymphadenopathy. CARDIOVASCULAR: Regular rate and rhythm, mild tachycardia, no murmurs, gallops, or rubs. RESPIRATORY: Breath sounds equal bilaterally. No accessory muscle use. GASTROINTESTINAL: Abdomen soft, non-tender, nondistended. MUSCULOSKELETAL: No cyanosis, mild edema, dry, scaly skin Laboratory Laboratory Tests Test 12/21/16 07:21 White Blood Count 14.8 TH/MM3 Red Blood Count 2.96 MIL/MM3 Hemoglobin 8.8 GM/DL Hematocrit 26.6 % Mean Corpuscular Volume 89.9 FL Mean Corpuscular Hemoglobin 29.8 PG Mean Corpuscular Hemoglobin Concent 33.1 % Red Cell Distribution Width 15.0 % Platelet Count 177 TH/MM3 Mean Platelet Volume 10.5 FL Neutrophils (%) (Auto) 84.3 % Lymphocytes (%) (Auto) 7.1 % Monocytes (%) (Auto) 8.4 % Eosinophils (%) (Auto) 0.2 % Basophils (%) (Auto) 0.0 % Neutrophils # (Auto) 12.4 TH/MM3 Lymphocytes # (Auto) 1.0 TH/MM3 Monocytes # (Auto) 1.2 TH/MM3 Eosinophils # (Auto) 0.0 TH/MM3 Basophils # (Auto) 0.0 TH/MM3 CBC Comment DIFF FINAL Differential Comment Prothrombin Time 15.5 SEC Prothromb Time International Ratio 1.4 RATIO Activated Partial Thromboplast Time 75.9 SEC Blood Urea Nitrogen 98 MG/DL Creatinine 5.30 MG/DL Random Glucose 376 MG/DL Calcium Level 8.5 MG/DL Sodium Level 132 MEQ/L Potassium Level 4.8 MEQ/L Chloride Level 97 MEQ/L Carbon Dioxide Level 24.7 MEQ/L Anion Gap 10 MEQ/L Estimat Glomerular Filtration Rate 11 ML/MIN Imaging Last Impressions Chest X-Ray 12/13/16 0600 Signed Impressions: Service Date/Time: Tuesday, December 13, 2016 04:54 - CONCLUSION: Persistent lobar consolidation left lower lung. Jose Roberto Cheema MD Chest CT 12/08/16 0000 Signed Impressions: Service Date/Time: Thursday, December 08, 2016 14:02 - CONCLUSION: 1. Bilateral lower lobe consolidating airspace disease. 2. Small to moderate bilateral pleural effusions; larger on the left. 3. Cardiomegaly. 4. Endotracheal and nasogastric tubes in good position. Tutu Christianson MD Renal Ultrasound 12/07/16 0000 Signed Impressions: Service Date/Time: November 07:54 - CONCLUSION: Unremarkable and stable bilateral renal ultrasound. No evidence of hydronephrosis. Baron Medrano MD Assessment and Plan Problem List: (1) Respiratory failure ICD Codes: J96.90 - Respiratory failure, unspecified, unspecified whether with hypoxia or hypercapnia Status: Acute (2) Sepsis ICD Codes: A41.9 - Sepsis, unspecified organism Status: Acute (3) Pneumonia ICD Codes: J18.9 - Pneumonia, unspecified organism Status: Acute (4) ARF (acute renal failure) ICD Codes: N17.9 - ARF (acute renal failure) Status: Acute (5) Elevated troponin ICD Codes: R74.8 - Abnormal levels of other serum enzymes Status: Acute (6) Diabetes mellitus ICD Codes: E11.9 - Diabetes mellitus Status: Chronic (7) Hypertension ICD Codes: I10 - Hypertension Status: Chronic (8) Morbid obesity ICD Codes: E66.01 - Morbid (severe) obesity due to excess calories Status: Acute (9) Anemia ICD Codes: D64.9 - Anemia Status: Acute Assessment and Plan Dialysis well tolerated. Continue to remove fluid. BP much better controlled, continue and titrate therapy for severe HTN. Continue aggressive risk factor modification. Increase activity, continue PT. Problem Qualifiers (1) Sepsis: (2) Pneumonia: (3) ARF (acute renal failure): (4) Diabetes mellitus: (5) Anemia: Mark Chapin MD Dec 21, 2016 10:37
[2016-12-21] MEDS: GENTAMICIN SULFATE (DIALYSIS USE ONLY) 20 MG/2 ML VIAL IV PRN (10:38)
[2016-12-21] MEDS: HEPARIN SODIUM - IV 10,000 UNITS/10 ML VIAL IVF PRN (10:38)
[2016-12-21] MEDS: EPOETIN ALFA 10,000 UNITS/ML VIAL IV PRN (10:38)
[2016-12-21] MEDS: SODIUM CHLORIDE 0.9% FLUSH 10 ML FLUSH IV FLUSH PRN (10:42)
--- NOTE | 2016-12-21 14:00 | HHI.PR ---
Subjective Remarks Follow-up sepsis/LA thrombus/end-stage renal disease requiring hemodialysis 12/18/16-patient seen and examined, BP slightly up. Labile blood glucose. Patient denies any nausea or vomiting. No acute event overnight 12/19/16-patient seen and examined, had hemodialysis today and states he is tired 12/20/16-patient seen and examined; denies any chest pain or shortness of breath. Complains of urinary retention since Young was removed yesterday 12/21/16-patient seen and examined; he had HD today and denies any Shortness of breath Objective Vitals Vital Signs Date Time Temp Pulse Resp B/P (MAP) Pulse Ox O2 Delivery O2 Flow Rate FiO2 12/21/16 08:03 97.3 59 18 168/77 (107) 96 12/21/16 04:30 97.7 57 16 162/75 (104) 94 12/20/16 23:40 97.9 66 16 164/75 (104) 97 12/20/16 21:00 98.3 71 16 152/71 (98) 92 Automatic Cuff 12/20/16 20:08 Room Air 12/20/16 20:00 69 12/20/16 16:00 97.6 70 20 174/80 (111) 100 I/O 12/20/16 12/20/16 12/20/16 12/21/16 12/21/16 12/21/16 06:59 14:59 22:59 06:59 14:59 22:59 Intake Total 730 ml 1066 ml 480 ml Output Total 1200 ml 1000 ml 1600 ml 2000 ml Balance -470 ml 66 ml -1120 ml -2000 ml Intake Oral 480 ml 480 ml 480 ml IV Total 250 ml 586 ml Output Urine Total 1200 ml 1000 ml 1600 ml Hemodialysis 2000 ml Bladder Scan Volume Amount 500 ml 486 ml 500 ml # Bowel Movements 0 0 0 Result Diagram: 12/21/1672012/21/16720 Objective Remarks GENERAL: NAD SKIN: Warm and dry. HEAD: Normocephalic. EYES: No scleral icterus. No injection or drainage. NECK: Supple, trachea midline. No JVD or lymphadenopathy. CARDIOVASCULAR: Regular rate and rhythm without murmurs, gallops, or rubs. RESPIRATORY: Breath sounds equal bilaterally. No accessory muscle use. GASTROINTESTINAL: Abdomen soft, non-tender, nondistended. MUSCULOSKELETAL: No cyanosis; +1edema BLE. BACK: Nontender without obvious deformity. No CVA tenderness. A/P Problem List: (1) Respiratory failure ICD Code: J96.90 - Respiratory failure, unspecified, unspecified whether with hypoxia or hypercapnia Status: Acute (2) Sepsis ICD Code: A41.9 - Sepsis, unspecified organism Status: Acute (3) Pneumonia ICD Code: J18.9 - Pneumonia, unspecified organism Status: Acute (4) left atrial thrombus Status: Acute (5) NSTEMI (non-ST elevated myocardial infarction) ICD Code: I21.4 - Non-ST elevation (NSTEMI) myocardial infarction Status: Resolved (6) ARF (acute renal failure) ICD Code: N17.9 - ARF (acute renal failure) Status: Acute (7) Diabetes mellitus ICD Code: E11.9 - Diabetes mellitus Status: Chronic (8) Morbid obesity ICD Code: E66.01 - Morbid (severe) obesity due to excess calories Status: Acute (9) Severe chronic obstructive pulmonary disease ICD Code: J44.9 - Chronic obstructive pulmonary disease, unspecified Status: Acute (10) CKD (chronic kidney disease) stage 4, GFR 15-29 ml/min ICD Code: N18.4 - Chronic kidney disease, stage 4 (severe) Status: Acute Assessment and Plan 66-year-old man with Acute hypoxic respiratory failure-resolved COPD exacerbation Bilateral lower lobe pneumonias/community acquired Bilateral small effusions Extubated 12/09, tolerating well prednisone 20 mg daily --Status post completed antibiotic treatment while hospitalized. --Symbicort and Spiriva NSTEMI LA thrombus Severe sepsis-resolved Hypertensive urgency-resolved -- Continue heparin drip bridging to Coumadin. -- ASA 81 mg daily. Coreg 6.25 mg BID. Norvasc 10 mg daily. Clonidine to 0.3 mg po TID and hydralazine 100 mg by mouth daily 8 hour -- Cardiology -Dr Quadrat. Echo Mildly dilated left ventricle. LVEF 45-50%. There is distinct regional WMA with akinetic apex and possibly clot at the apex. - Biatrial moderate dilatation New severe acute kidney injury Chronic kidney disease -- Nephrology started HD 12/12/16.He had HD today 12/21/16 -- Renal ultrasound-normal. Positive for proteinuria. -- Awaiting kidney function recovery. Community acquired bilateral lower lobe pneumonia Severe sepsis Patient completed antibiotic therapy on 12/15/16. [place] culture follow up-neg to date -- Received 2 units PRBC 12/08 transfusion for hemoglobin drop to 6.6 from 7.7. Type 2 diabetes-labile blood glucose -- Increase Levemir to 20 units at bedtime and SSI Urinary retention/BPH --Start Flomax 0.4 mg daily Prophylaxis: GI Prophylaxis Protonix DVT Prophylaxis -- SCDs Heparin drip and Coumadin, Problem Qualifiers (1) Sepsis: (2) Pneumonia: (3) ARF (acute renal failure): (4) Diabetes mellitus: Hernandez Gray MD Dec 21, 2016 14:00
[2016-12-21] MEDS ORDERED: WARFARIN SOD 3 MG TAB PO ONE (16:00)
[2016-12-21] MEDS: WARFARIN SOD 4 MG TAB PO SCH (16:47)
--- NOTE | 2016-12-21 20:21 | HHI.NPPN ---
Subjective History of Present Illness 66-year-old male with past medical history of hypertension, diabetes mellitus, history of cerebrovascular accident with left-sided weakness, hyperlipidemia, bronchial asthma, chronic kidney disease who was admitted because of shortness of breath and chest pain. I was called to see the patient because of elevated BUN and creatinine. The patient was diagnosed here with non-ST elevation [place]. The patient has history of chronic kidney disease. Additional Remarks Patient is alert, eating well, no SOB, not in distress. Objective Data Data 12/21/16 12/22/16 19:00 07:00 Intake Total 380 ml Output Total 3200 ml Balance -2820 ml Intake Oral 380 ml Output Urine Total 1200 ml Hemodialysis 2000 ml # Bowel Movements 0 Vital Signs Date Time Temp Pulse Resp B/P (MAP) Pulse Ox O2 Delivery O2 Flow Rate FiO2 12/21/16 16:06 98.1 65 19 143/66 (91) 95 12/21/16 13:20 97.1 65 18 166/74 (104) 96 12/21/16 08:03 97.3 59 18 168/77 (107) 96 12/21/16 04:30 97.7 57 16 162/75 (104) 94 12/20/16 23:40 97.9 66 16 164/75 (104) 97 12/20/16 21:00 98.3 71 16 152/71 (98) 92 Automatic Cuff -: 12/21/16 0721 12/21/16 0721 Physical Exam General Appearance: No Acute Distress, Comfortable Eyes Eye Exam: Pupils Equal Throat Throat Exam: Oral Mucosa [place] & Moist Neck Neck Exam: Neck Supple Pulmonary Resp Exam: No Distress, Rhonchi, Decreased Bases, Diminished Breath Sounds Cardiology CV Exam: Regular, Normal Sinus Rhythm Gastrointestinal/Abdomen GI Exam: Soft, Non-Tender, Bowel Sounds Present Extremeties Extremities Exam: Moderate Edema Neurologic Neuro Exam: Alert, Awake Psychiatric Psych Exam: Appropriate Responses Assessment/Plan Assessment Summary: WILLIE/Acute Renal Failure, CHF, CKD Stage IV Problem List: (1) NSTEMI (non-ST elevated myocardial infarction) ICD Codes: I21.4 - Non-ST elevation (NSTEMI) myocardial infarction Status: Resolved (2) Diabetes mellitus ICD Codes: E11.9 - Diabetes mellitus Status: Chronic (3) Asthma ICD Codes: J45.909 - Asthma Status: Chronic (4) Shortness of breath ICD Codes: R06.02 - Shortness of breath Status: Acute (5) Leg edema ICD Codes: R60.0 - Leg edema Status: Acute (6) Hypertension ICD Codes: I10 - Hypertension Status: Chronic (7) CKD (chronic kidney disease) stage 4, GFR 15-29 ml/min ICD Codes: N18.4 - Chronic kidney disease, stage 4 (severe) Status: Acute (8) ARF (acute renal failure) ICD Codes: N17.9 - ARF (acute renal failure) Status: Acute Plan Patient has last HD done yesterday. Creatinine is still elevated, and GFR is low. Will consider Renal Biopsy if not better. Has 6 gm of proteinuria. Serology is negative. Most likely has End stage renal disease. On IV Heparin and Coumadin. Possible Kidney Biopsy and PermCath. Continue HD as schedule. Problem Qualifiers (1) Diabetes mellitus: (2) Hypertension: Qualified Codes: I10 - Essential (primary) hypertension (3) ARF (acute renal failure): Zoey Carbone MD Dec 21, 2016 20:20
[2016-12-21] MEDS: INSULIN DETEMIR 100 UNITS/ML VIAL SQ SCH (20:55)
[2016-12-22] VITALS (9 sets, daily range): BP systolic 125–154; BP diastolic 58–72; PULSE 58–67; RESP 16–18; TEMP 97.8–98.3; O2SAT 95–98
[2016-12-22] MEDS: cloNIDine HCL 0.3 MG TAB PO SCH ×4 (00:29→23:14)
[2016-12-22] MEDS: CHLORHEXIDINE GLUCONATE 2 % 1 PACK (2 CLOTHS) TOP SCH (03:26)
[2016-12-22] MEDS: hydrALAZINE HCL 50 MG TAB PO SCH ×3 (05:13→23:06)
[2016-12-22] MEDS: INSULIN NovoLIN REGULAR SUPPLEMENTAL SCALE SQ SCH ×5 (05:45→23:14)
[2016-12-22 07:14] LABS: INTERNATIONAL NORMALIZED RATIO 1.5 RATIO; PROTHROMBIN TIME - PATIENT 16.3 SEC (9.8-11.6)
[2016-12-22] MEDS: CHLORHEXIDINE 0.12% (ORAL KIT) 15 ML CUP MT SCH ×2 (08:00→20:00)
[2016-12-22] MEDS: CALCITRIOL 0.25 MCG CAP PO SCH (08:53)
[2016-12-22] MEDS: SODIUM CHLORIDE 0.9% FLUSH 10 ML FLUSH IVF SCH (08:54)
[2016-12-22] MEDS: CALCIUM ACETATE 667 MG CAP PO SCH ×3 (08:54→17:26)
[2016-12-22] MEDS: CARVEDILOL 6.25 MG TAB PO SCH ×2 (08:54→20:24)
[2016-12-22] MEDS: ASPIRIN 81 MG CHEW TAB CHEW SCH (08:54)
[2016-12-22] MEDS: TAMSULOSIN HCL 0.4 MG CAP PO SCH (08:54)
[2016-12-22] MEDS: SODIUM CHLORIDE 0.9% FLUSH 10 ML FLUSH IV FLUSH SCH ×2 (08:55→20:24)
[2016-12-22] MEDS: BUDESONIDE-FORMOTEROL 160/4.5 MCG INHALER INH SCH ×2 (08:59→20:22)
[2016-12-22] MEDS: ARTIFICIAL TEARS OPTH SOLN 15 ML BTL EACH EYE SCH ×3 (08:59→17:32)
[2016-12-22] MEDS: TIOTROPIUM BROMIDE 18 MCG INH INH SCH (08:59)
[2016-12-22 09:02] LABS: APTT (PATIENT) 75.2 SEC (24.3-30.1)
--- NOTE | 2016-12-22 11:18 | HHI.PR ---
Subjective Remarks Follow-up sepsis/LA thrombus/end-stage renal disease requiring hemodialysis 12/18/16-patient seen and examined, BP slightly up. Labile blood glucose. Patient denies any nausea or vomiting. No acute event overnight 12/19/16-patient seen and examined, had hemodialysis today and states he is tired 12/20/16-patient seen and examined; denies any chest pain or shortness of breath. Complains of urinary retention since Young was removed yesterday 12/21/16-patient seen and examined; he had HD today and denies any Shortness of breath 12/22/16-patient seen and examined, stable and no complaint today Objective Vitals Vital Signs Date Time Temp Pulse Resp B/P (MAP) Pulse Ox O2 Delivery O2 Flow Rate FiO2 12/22/16 08:53 98 12/22/16 08:17 60 12/22/16 08:00 97.8 60 18 141/70 (93) 97 12/22/16 04:30 98.3 62 16 149/72 (97) 98 12/21/16 23:40 97.8 63 16 160/74 (102) 93 12/21/16 20:40 98.4 66 16 146/69 (94) 96 12/21/16 20:00 Room Air 12/21/16 20:00 64 12/21/16 16:06 98.1 65 19 143/66 (91) 95 12/21/16 13:20 97.1 65 18 166/74 (104) 96 I/O 12/21/16 12/21/16 12/21/16 12/22/16 12/22/16 12/22/16 06:59 14:59 22:59 06:59 14:59 22:59 Intake Total 480 ml 380 ml 336 ml Output Total 1600 ml 3200 ml 700 ml Balance -1120 ml -2820 ml -364 ml Intake Oral 480 ml 380 ml 240 ml IV Total 96 ml Output Urine Total 1600 ml 1200 ml 700 ml Hemodialysis 2000 ml # Bowel Movements 0 0 0 Result Diagram: 12/21/1672012/21/16720 Objective Remarks GENERAL: NAD SKIN: Warm and dry. HEAD: Normocephalic. EYES: No scleral icterus. No injection or drainage. NECK: Supple, trachea midline. No JVD or lymphadenopathy. CARDIOVASCULAR: Regular rate and rhythm without murmurs, gallops, or rubs. RESPIRATORY: Breath sounds equal bilaterally. No accessory muscle use. GASTROINTESTINAL: Abdomen soft, non-tender, nondistended. MUSCULOSKELETAL: No cyanosis; +1edema BLE. BACK: Nontender without obvious deformity. No CVA tenderness. A/P Problem List: (1) Respiratory failure ICD Code: J96.90 - Respiratory failure, unspecified, unspecified whether with hypoxia or hypercapnia Status: Acute (2) Sepsis ICD Code: A41.9 - Sepsis, unspecified organism Status: Acute (3) Pneumonia ICD Code: J18.9 - Pneumonia, unspecified organism Status: Acute (4) left atrial thrombus Status: Acute (5) NSTEMI (non-ST elevated myocardial infarction) ICD Code: I21.4 - Non-ST elevation (NSTEMI) myocardial infarction Status: Resolved (6) ARF (acute renal failure) ICD Code: N17.9 - ARF (acute renal failure) Status: Acute (7) Diabetes mellitus ICD Code: E11.9 - Diabetes mellitus Status: Chronic (8) Morbid obesity ICD Code: E66.01 - Morbid (severe) obesity due to excess calories Status: Acute (9) Severe chronic obstructive pulmonary disease ICD Code: J44.9 - Chronic obstructive pulmonary disease, unspecified Status: Acute (10) CKD (chronic kidney disease) stage 4, GFR 15-29 ml/min ICD Code: N18.4 - Chronic kidney disease, stage 4 (severe) Status: Acute Assessment and Plan 66-year-old man with Acute hypoxic respiratory failure-resolved COPD exacerbation Bilateral lower lobe pneumonias/community acquired Bilateral small effusions Extubated 12/09, tolerating well prednisone 20 mg daily --Status post completed antibiotic treatment while hospitalized. --Symbicort and Spiriva NSTEMI LA thrombus Severe sepsis-resolved Hypertensive urgency-resolved -- Continue heparin drip bridging to Coumadin. -- ASA 81 mg daily. Coreg 6.25 mg BID. Norvasc 10 mg daily. Clonidine to 0.3 mg po TID and hydralazine 100 mg by mouth daily 8 hour -- Cardiology -Dr Quadrat. Echo Mildly dilated left ventricle. LVEF 45-50%. New severe acute kidney injury Chronic kidney disease -- Nephrology started HD 12/12/16. Hemodialysis per nephrology -- Renal ultrasound-normal. Positive for proteinuria. -- Awaiting kidney function recovery. Community acquired bilateral lower lobe pneumonia Severe sepsis Patient completed antibiotic therapy on 12/15/16. [place] culture follow up-neg to date -- Received 2 units PRBC 12/08 transfusion for hemoglobin drop to 6.6 from 7.7. Type 2 diabetes-labile blood glucose -- Continue Levemir 20 units at bedtime and SSI Urinary retention/BPH --Continue Flomax 0.4 mg daily Prophylaxis: GI Prophylaxis Protonix DVT Prophylaxis -- SCDs Heparin drip and Coumadin, Problem Qualifiers (1) Sepsis: (2) Pneumonia: (3) ARF (acute renal failure): (4) Diabetes mellitus: Hernandez Gray MD Dec 22, 2016 11:17
[2016-12-22] MEDS ORDERED: WARFARIN SOD 3 MG TAB PO ONE (16:00)
[2016-12-22] MEDS: WARFARIN SOD 4 MG TAB PO SCH (16:25)
--- NOTE | 2016-12-22 19:36 | HHI.NPPN ---
Subjective History of Present Illness 66-year-old male with past medical history of hypertension, diabetes mellitus, history of cerebrovascular accident with left-sided weakness, hyperlipidemia, bronchial asthma, chronic kidney disease who was admitted because of shortness of breath and chest pain. I was called to see the patient because of elevated BUN and creatinine. The patient was diagnosed here with non-ST elevation [place]. The patient has history of chronic kidney disease. Additional Remarks Patient is alert, eating well, no SOB, clinically same. Objective Data Data Vital Signs Date Time Temp Pulse Resp B/P (MAP) Pulse Ox O2 Delivery O2 Flow Rate FiO2 12/22/16 16:00 98.1 62 18 125/58 (80) 98 12/22/16 12:00 97.8 58 18 137/67 (90) 97 12/22/16 08:53 98 12/22/16 08:17 60 12/22/16 08:00 97.8 60 18 141/70 (93) 97 12/22/16 08:00 Room Air 12/22/16 04:30 98.3 62 16 149/72 (97) 98 12/21/16 23:40 97.8 63 16 160/74 (102) 93 12/21/16 20:40 98.4 66 16 146/69 (94) 96 12/21/16 20:00 Room Air 12/21/16 20:00 64 -: 12/21/16 0721 12/21/16 0721 Physical Exam General Appearance: No Acute Distress, Comfortable Eyes Eye Exam: Pupils Equal Throat Throat Exam: Oral Mucosa [place] & Moist Neck Neck Exam: Neck Supple Pulmonary Resp Exam: No Distress, Rhonchi, Decreased Bases, Diminished Breath Sounds Cardiology CV Exam: Regular, Normal Sinus Rhythm Gastrointestinal/Abdomen GI Exam: Soft, Non-Tender, Bowel Sounds Present Extremeties Extremities Exam: Moderate Edema Neurologic Neuro Exam: Alert, Awake Psychiatric Psych Exam: Appropriate Responses Assessment/Plan Assessment Summary: WILLIE/Acute Renal Failure, CHF, CKD Stage IV Problem List: (1) NSTEMI (non-ST elevated myocardial infarction) ICD Codes: I21.4 - Non-ST elevation (NSTEMI) myocardial infarction Status: Resolved (2) Diabetes mellitus ICD Codes: E11.9 - Diabetes mellitus Status: Chronic (3) Asthma ICD Codes: J45.909 - Asthma Status: Chronic (4) Shortness of breath ICD Codes: R06.02 - Shortness of breath Status: Acute (5) Leg edema ICD Codes: R60.0 - Leg edema Status: Acute (6) Hypertension ICD Codes: I10 - Hypertension Status: Chronic (7) CKD (chronic kidney disease) stage 4, GFR 15-29 ml/min ICD Codes: N18.4 - Chronic kidney disease, stage 4 (severe) Status: Acute (8) ARF (acute renal failure) ICD Codes: N17.9 - ARF (acute renal failure) Status: Acute Plan Patient has last HD done yesterday. Creatinine is still elevated, and GFR is low. Will consider Renal Biopsy if not better. Has 6 gm of proteinuria. Serology is negative. Most likely has End stage renal disease. On IV Heparin and Coumadin. Possible Kidney Biopsy and PermCath. HD in AM. Problem Qualifiers (1) Diabetes mellitus: (2) ARF (acute renal failure): Zoey Carbone MD Dec 22, 2016 19:36
--- NOTE | 2016-12-22 19:42 | PD.CARD.PN ---
Subjective Subjective Remarks No CP or SOB, feels fine, tolerating dialysis well Objective Medications Current Medications Medications (Trade) Dose Ordered Sig/Abby Route Start Time Stop Time Status Last Admin (D50w (Vial) Inj) 25 ml UNSCH PRN IV PUSH 12/07/16 00:45 (NovoLIN R SUPPLEMENTAL SCALE) 1 Q6HR SQ 12/07/16 06:00 12/22/16 17:27 (Zofran Inj) 4 mg Q6H PRN IV 12/07/16 00:45 Heparin Sodium/ Dextrose 250 ml @ 0 mls/hr TITRATE IV 12/07/16 01:45 Future hold 12/21/16 22:19 (NS Flush) DAILY IVF 12/07/16 15:30 12/19/16 09:00 (NS Flush) UNSCH PRN IVF 12/07/16 15:30 (Peridex 0.12% Liq) 15 ml BID@08,20 MT 12/07/16 20:00 12/21/16 08:00 (Albuterol Neb) 2.5 mg Q2HR NEB PRN NEB 12/07/16 15:30 (NS Flush) 2 ml UNSCH PRN IV FLUSH 12/07/16 15:30 12/12/16 11:32 (NS Flush) 2 ml BID IV FLUSH 12/07/16 21:00 12/21/16 20:54 (Tylenol) 650 mg Q6H PRN PO 12/07/16 15:30 (Tears Naturale Opth Soln) 1 drop TID EACH EYE 12/07/16 18:00 12/22/16 17:32 Miscellaneous Information 1 Q361D XX 12/07/16 15:30 (Chlorhexidine 2% Cloth) Taper DAILY@04 TOP 12/08/16 04:00 12/04/17 03:59 12/14/16 04:00 (Chlorhexidine 2% Cloth) 3 pack UNSCH PRN TOP 12/07/16 15:30 (Milk Of Magnesia Liq) 30 ml Q12H PRN PO 12/07/16 15:30 12/17/16 09:10 (Senokot) 17.2 mg Q12H PRN PO 12/07/16 15:30 12/17/16 09:10 (Aspirin Chew) 81 mg DAILY CHEW 12/08/16 12:00 12/22/16 08:54 (Trandate Inj) 20 mg Q2H PRN IV 12/10/16 00:15 12/14/16 08:05 (Morphine Inj) 2 mg Q3H PRN IV PUSH 12/10/16 09:15 12/12/16 14:04 (Coreg) 6.25 mg Q12HR PO 12/10/16 10:00 12/22/16 08:54 (Phoslo) 1,334 mg TID PO 12/10/16 13:00 12/22/16 17:26 (Rocaltrol) 0.5 mcg DAILY PO 12/10/16 12:45 12/22/16 08:53 (Symbicort 160-4.5 Inh) 1 puff Q12HR INH 12/11/16 12:00 12/22/16 08:59 (Spiriva Inh) 18 mcg DAILY INH 12/11/16 12:00 12/22/16 08:59 (Norvasc) 10 mg DAILY PO 12/11/16 15:15 12/22/16 08:54 (Apresoline Inj) 20 mg Q4H PRN IV PUSH 12/11/16 15:15 12/18/16 04:26 (Catapres) 0.3 mg Q8H PO 12/12/16 08:00 12/22/16 16:25 Sodium Chloride 1,000 ml @ 0 mls/hr Q0M PRN IV 12/12/16 12:11 12/16/16 11:40 (Heparin Inj) 8,000 units UNSCH PRN IVF 12/12/16 12:15 12/21/16 10:38 Sodium Chloride 1,000 ml @ 200 mls/hr Q5H PRN IV 12/12/16 12:11 Sodium Chloride 1,000 ml @ 0 mls/hr Q0M PRN IV 12/12/16 12:11 12/12/16 17:04 (Mannitol Inj) 12.5 gm UNSCH PRN IV 12/12/16 12:15 (Albumin 25% Inj) 25 gm UNSCH PRN IV 12/12/16 12:15 (NS Flush) 5 ml UNSCH PRN IV FLUSH 12/12/16 12:15 12/21/16 10:42 (Heparin Inj) UNSCH PRN .XX 12/12/16 12:15 12/19/16 12:15 (Gentamicin (Dialysis) Inj) 20 mg UNSCH PRN IV 12/12/16 12:15 12/21/16 10:38 (Zofran Inj) 4 mg UNSCH PRN IV 12/12/16 12:15 (Tylenol) 650 mg UNSCH PRN PO 12/12/16 12:15 (Benadryl) 25 mg UNSCH PRN PO 12/12/16 12:15 (Nitrostat Sl) 0.4 mg UNSCH PRN SL 12/12/16 12:15 (Catapres) 0.1 mg UNSCH PRN PO 12/12/16 12:15 (Epogen Inj) 10,000 units UNSCH PRN IV 12/12/16 12:15 12/21/16 10:38 (Gelfoam 12 Mm/7 Mm Top) 1 foam UNSCH PRN TOP 12/12/16 12:15 (Coumadin) 4 mg DAILY@16 PO 12/13/16 16:00 12/22/16 16:25 Pharmacy Profile Note 0 ml @ 0 mls/hr UNSCH OTHER 12/13/16 12:00 (Apresoline) 100 mg Q8HR PO 12/17/16 22:00 12/22/16 12:57 (Flomax) 0.4 mg DAILY PO 12/21/16 09:00 12/22/16 08:54 (Levemir Inj) 20 units HS SQ 12/20/16 21:00 12/21/16 20:55 Vital Signs / I&O Vital Signs Date Time Temp Pulse Resp B/P (MAP) Pulse Ox O2 Delivery O2 Flow Rate FiO2 12/22/16 16:00 98.1 62 18 125/58 (80) 98 12/22/16 12:00 97.8 58 18 137/67 (90) 97 12/22/16 08:53 98 12/22/16 08:17 60 12/22/16 08:00 97.8 60 18 141/70 (93) 97 12/22/16 08:00 Room Air 12/22/16 04:30 98.3 62 16 149/72 (97) 98 12/21/16 23:40 97.8 63 16 160/74 (102) 93 12/21/16 20:40 98.4 66 16 146/69 (94) 96 12/21/16 20:00 Room Air 12/21/16 20:00 64 I/O 12/21/16 12/21/16 12/21/16 12/22/16 12/22/16 12/22/16 07:00 15:00 23:00 07:00 15:00 23:00 Intake Total 480 ml 380 ml 336 ml Output Total 1600 ml 3200 ml 700 ml Balance -1120 ml -2820 ml -364 ml Intake Oral 480 ml 380 ml 240 ml IV Total 96 ml Output Urine Total 1600 ml 1200 ml 700 ml Hemodialysis 2000 ml # Bowel Movements 0 0 0 Physical Exam GENERAL: In NAD SKIN: Warm and dry. HEAD: Normocephalic. EYES: No scleral icterus. No injection or drainage. NECK: Supple, trachea midline. No JVD or lymphadenopathy. CARDIOVASCULAR: Regular rate and rhythm, mild tachycardia, no murmurs, gallops, or rubs. RESPIRATORY: Breath sounds equal bilaterally. No accessory muscle use. GASTROINTESTINAL: Abdomen soft, non-tender, nondistended. MUSCULOSKELETAL: No cyanosis, mild edema, dry, scaly skin Laboratory Laboratory Tests Test 12/22/16 05:24 Prothrombin Time 16.3 SEC Prothromb Time International Ratio 1.5 RATIO Activated Partial Thromboplast Time 75.2 SEC Imaging Last Impressions Chest X-Ray 12/13/16 0600 Signed Impressions: Service Date/Time: Tuesday, December 13, 2016 04:54 - CONCLUSION: Persistent lobar consolidation left lower lung. Jose Roberto Cheema MD Chest CT 12/08/16 0000 Signed Impressions: Service Date/Time: Thursday, December 08, 2016 14:02 - CONCLUSION: 1. Bilateral lower lobe consolidating airspace disease. 2. Small to moderate bilateral pleural effusions; larger on the left. 3. Cardiomegaly. 4. Endotracheal and nasogastric tubes in good position. Tutu Christianson MD Renal Ultrasound 12/07/16 0000 Signed Impressions: Service Date/Time: November 07:54 - CONCLUSION: Unremarkable and stable bilateral renal ultrasound. No evidence of hydronephrosis. Baron Medrano MD Assessment and Plan Problem List: (1) Respiratory failure ICD Codes: J96.90 - Respiratory failure, unspecified, unspecified whether with hypoxia or hypercapnia Status: Acute (2) Sepsis ICD Codes: A41.9 - Sepsis, unspecified organism Status: Acute (3) Pneumonia ICD Codes: J18.9 - Pneumonia, unspecified organism Status: Acute (4) ARF (acute renal failure) ICD Codes: N17.9 - ARF (acute renal failure) Status: Acute (5) Elevated troponin ICD Codes: R74.8 - Abnormal levels of other serum enzymes Status: Acute (6) Diabetes mellitus ICD Codes: E11.9 - Diabetes mellitus Status: Chronic (7) Hypertension ICD Codes: I10 - Hypertension Status: Chronic (8) Morbid obesity ICD Codes: E66.01 - Morbid (severe) obesity due to excess calories Status: Acute (9) Anemia ICD Codes: D64.9 - Anemia Status: Acute Assessment and Plan Stable from cardiac standpoint. Dialysis has been well tolerated. Continue to remove fluid. BP much better controlled, continue and titrate therapy for severe HTN. Continue aggressive risk factor modification. No new cardiac issues. Increase activity, continue PT. Problem Qualifiers (1) Sepsis: (2) Pneumonia: (3) ARF (acute renal failure): (4) Diabetes mellitus: (5) Anemia: Mark Chapin MD Dec 22, 2016 19:42
[2016-12-22] MEDS: HEPARIN-D5W 25,000 U/250 ML 250 ML IV SCH (20:23)
[2016-12-22] MEDS: INSULIN DETEMIR 100 UNITS/ML VIAL SQ SCH (20:25)
[2016-12-22] MEDS: MAGNESIUM HYDROXIDE SUSP 30 ML CUP PO PRN (23:15)
[2016-12-23] VITALS (7 sets, daily range): BP systolic 139–160; BP diastolic 63–72; PULSE 60–82; RESP 16–20; TEMP 97.7–99.8; O2SAT 96–99
[2016-12-23] MEDS: CHLORHEXIDINE GLUCONATE 2 % 1 PACK (2 CLOTHS) TOP SCH (04:00)
[2016-12-23] MEDS: INSULIN NovoLIN REGULAR SUPPLEMENTAL SCALE SQ SCH ×4 (06:00→23:40)
[2016-12-23] MEDS: hydrALAZINE HCL 50 MG TAB PO SCH ×3 (06:16→22:13)
[2016-12-23] MEDS: CHLORHEXIDINE 0.12% (ORAL KIT) 15 ML CUP MT SCH ×2 (06:18→20:00)
[2016-12-23] MEDS: cloNIDine HCL 0.3 MG TAB PO SCH ×3 (06:59→22:16)
[2016-12-23 08:12] LABS: INTERNATIONAL NORMALIZED RATIO 1.4 RATIO; PROTHROMBIN TIME - PATIENT 15.9 SEC (9.8-11.6)
[2016-12-23 08:17] LABS: BASOPHIL # 0.1 TH/MM3 (0-0.2); BASOPHIL % 0.6 % (0.0-2.0); EOSINOPHIL # 0.2 TH/MM3 (0-0.4); EOSINOPHIL % 2.2 % (0.0-4.0); LYMPH % 11.9 % (9.0-44.0); LYMPHOCYTE # 1.1 TH/MM3 (1.0-4.8); MEAN CELL VOLUME 89.9 FL (80.0-100.0); MEAN CORPUSCULAR HEMOGLOBIN 30.1 PG (27.0-34.0); MEAN CORPUSCULAR HGB CONC 33.6 % (32.0-36.0); MONO % 12.1 % (0.0-8.0); NEUT % 73.2 % (16.0-70.0); PLATELET COUNT 176 TH/MM3 (150-450); RED CELL DISTRIBUTION WIDTH 15.7 % (11.6-17.2); WHITE BLOOD COUNT 9.5 TH/MM3 (4.0-11.0)
[2016-12-23 08:19] LABS: APTT (PATIENT) 79.7 SEC (24.3-30.1)
[2016-12-23 08:20] LABS: HEMO FLAGS AUTO DIFF
[2016-12-23 08:33] LABS: BICARBONATE 26.4 MEQ/L (21.0-32.0); POTASSIUM 4.6 MEQ/L (3.5-5.1)
[2016-12-23] MEDS: TAMSULOSIN HCL 0.4 MG CAP PO SCH (09:00)
[2016-12-23] MEDS: CALCITRIOL 0.25 MCG CAP PO SCH (09:00)
[2016-12-23] MEDS: BUDESONIDE-FORMOTEROL 160/4.5 MCG INHALER INH SCH ×2 (09:00→22:19)
[2016-12-23] MEDS: CARVEDILOL 6.25 MG TAB PO SCH ×2 (09:00→22:14)
[2016-12-23] MEDS: SODIUM CHLORIDE 0.9% FLUSH 10 ML FLUSH IVF SCH (09:00)
[2016-12-23] MEDS: TIOTROPIUM BROMIDE 18 MCG INH INH SCH (09:00)
[2016-12-23] MEDS: ARTIFICIAL TEARS OPTH SOLN 15 ML BTL EACH EYE SCH ×3 (09:00→17:20)
[2016-12-23] MEDS: SODIUM CHLORIDE 0.9% FLUSH 10 ML FLUSH IV FLUSH SCH ×2 (09:00→22:14)
[2016-12-23] MEDS: CALCIUM ACETATE 667 MG CAP PO SCH ×3 (09:00→17:20)
[2016-12-23] MEDS: ASPIRIN 81 MG CHEW TAB CHEW SCH (09:00)
--- NOTE | 2016-12-23 09:52 | HHI.NPPN ---
Subjective History of Present Illness 66-year-old male with past medical history of hypertension, diabetes mellitus, history of cerebrovascular accident with left-sided weakness, hyperlipidemia, bronchial asthma, chronic kidney disease who was admitted because of shortness of breath and chest pain. I was called to see the patient because of elevated BUN and creatinine. The patient was diagnosed here with non-ST elevation [place]. The patient has history of chronic kidney disease. Additional Remarks Patient is alert, eating well, no SOB. Objective Data Data 12/23/16 12/24/16 19:00 07:00 Output Total 300 ml Balance -300 ml Output Urine Total 300 ml Vital Signs Date Time Temp Pulse Resp B/P (MAP) Pulse Ox O2 Delivery O2 Flow Rate FiO2 12/23/16 04:34 98.2 60 16 148/67 (94) 99 12/22/16 23:20 97.9 66 16 154/67 (96) 95 12/22/16 21:12 21 12/22/16 20:18 97.9 66 16 137/60 (85) 96 12/22/16 20:00 67 12/22/16 20:00 Room Air 12/22/16 16:00 98.1 62 18 125/58 (80) 98 12/22/16 12:00 97.8 58 18 137/67 (90) 97 -: 12/23/16 0733 12/23/16 0733 Physical Exam General Appearance: No Acute Distress, Comfortable Eyes Eye Exam: Pupils Equal Throat Throat Exam: Oral Mucosa [place] & Moist Neck Neck Exam: Neck Supple Pulmonary Resp Exam: No Distress, Rhonchi, Decreased Bases, Diminished Breath Sounds Cardiology CV Exam: Regular, Normal Sinus Rhythm Gastrointestinal/Abdomen GI Exam: Soft, Non-Tender, Bowel Sounds Present Extremeties Extremities Exam: Moderate Edema Neurologic Neuro Exam: Alert, Awake Psychiatric Psych Exam: Appropriate Responses Assessment/Plan Assessment Summary: WILLIE/Acute Renal Failure, CHF, CKD Stage IV Problem List: (1) NSTEMI (non-ST elevated myocardial infarction) ICD Codes: I21.4 - Non-ST elevation (NSTEMI) myocardial infarction Status: Resolved (2) Diabetes mellitus ICD Codes: E11.9 - Diabetes mellitus Status: Chronic (3) Asthma ICD Codes: J45.909 - Asthma Status: Chronic (4) Shortness of breath ICD Codes: R06.02 - Shortness of breath Status: Acute (5) Leg edema ICD Codes: R60.0 - Leg edema Status: Acute (6) Hypertension ICD Codes: I10 - Hypertension Status: Chronic (7) CKD (chronic kidney disease) stage 4, GFR 15-29 ml/min ICD Codes: N18.4 - Chronic kidney disease, stage 4 (severe) Status: Acute (8) ARF (acute renal failure) ICD Codes: N17.9 - ARF (acute renal failure) Status: Acute Plan Patient is on HD . Creatinine is still elevated, seen dialysis UF 3 L vascath not working well on 3 K bath needs PermCath On IV Heparin and Coumadin. Hold Coumadin as plan to place PermCath as Vascath malfunctioning Possible Kidney Biopsy and PermCath on Sunday if not better. Problem Qualifiers (1) Diabetes mellitus: (2) ARF (acute renal failure): Shawn Nye MD Dec 23, 2016 09:52
[2016-12-23] MEDS: RESP: ALBUTEROL 2.5 MG/3 ML NEB (PRN) NEB (10:23)
[2016-12-23 10:24] LABS: POLYCHROMASIA 2.1 % (0.0-1.9); SCAN/DIFF AUTO DIFF CONFIRMED
--- NOTE | 2016-12-23 11:29 | HHI.PR ---
Subjective Remarks Follow-up sepsis/LA thrombus/end-stage renal disease requiring hemodialysis 12/18/16-patient seen and examined, BP slightly up. Labile blood glucose. Patient denies any nausea or vomiting. No acute event overnight 12/19/16-patient seen and examined, had hemodialysis today and states he is tired 12/20/16-patient seen and examined; denies any chest pain or shortness of breath. Complains of urinary retention since Young was removed yesterday 12/21/16-patient seen and examined; he had HD today and denies any Shortness of breath 12/22/16-patient seen and examined, stable and no complaint today 12/23/16-patient seen and examined, has no complaint however Young with evidence of gross hematuria Objective Vitals Vital Signs Date Time Temp Pulse Resp B/P (MAP) Pulse Ox O2 Delivery O2 Flow Rate FiO2 12/23/16 08:00 97.7 67 20 151/72 (98) 97 Manual Cuff/Palpation 12/23/16 04:34 98.2 60 16 148/67 (94) 99 12/22/16 23:20 97.9 66 16 154/67 (96) 95 12/22/16 21:12 21 12/22/16 20:18 97.9 66 16 137/60 (85) 96 12/22/16 20:00 67 12/22/16 20:00 Room Air 12/22/16 16:00 98.1 62 18 125/58 (80) 98 12/22/16 12:00 97.8 58 18 137/67 (90) 97 I/O 12/22/16 12/22/16 12/22/16 12/23/16 12/23/16 12/23/16 07:00 15:00 23:00 07:00 15:00 23:00 Intake Total 336 ml 145 ml 478 ml Output Total 700 ml 850 ml 300 ml Balance -364 ml 145 ml -372 ml -300 ml Intake Oral 240 ml 360 ml IV Total 96 ml 145 ml 118 ml Output Urine Total 700 ml 850 ml 300 ml # Bowel Movements 0 0 Result Diagram: 12/23/16 0733 12/23/16 0733 Imaging Last Impressions Chest X-Ray 12/13/16 0600 Signed Impressions: Service Date/Time: Tuesday, December 13, 2016 04:54 - CONCLUSION: Persistent lobar consolidation left lower lung. Jose Roberto Cheema MD Chest CT 12/08/16 0000 Signed Impressions: Service Date/Time: Thursday, December 08, 2016 14:02 - CONCLUSION: 1. Bilateral lower lobe consolidating airspace disease. 2. Small to moderate bilateral pleural effusions; larger on the left. 3. Cardiomegaly. 4. Endotracheal and nasogastric tubes in good position. Tutu Christianson MD Renal Ultrasound 12/07/16 0000 Signed Impressions: Service Date/Time: November 07:54 - CONCLUSION: Unremarkable and stable bilateral renal ultrasound. No evidence of hydronephrosis. Baron Medrano MD Objective Remarks GENERAL: NAD SKIN: Warm and dry. HEAD: Normocephalic. EYES: No scleral icterus. No injection or drainage. NECK: Supple, trachea midline. No JVD or lymphadenopathy. CARDIOVASCULAR: Regular rate and rhythm without murmurs, gallops, or rubs. RESPIRATORY: Breath sounds equal bilaterally. No accessory muscle use. GASTROINTESTINAL: Abdomen soft, non-tender, nondistended. MUSCULOSKELETAL: No cyanosis; +1edema BLE. BACK: Nontender without obvious deformity. No CVA tenderness. A/P Problem List: (1) Respiratory failure ICD Code: J96.90 - Respiratory failure, unspecified, unspecified whether with hypoxia or hypercapnia Status: Acute (2) Sepsis ICD Code: A41.9 - Sepsis, unspecified organism Status: Acute (3) Pneumonia ICD Code: J18.9 - Pneumonia, unspecified organism Status: Acute (4) left atrial thrombus Status: Acute (5) NSTEMI (non-ST elevated myocardial infarction) ICD Code: I21.4 - Non-ST elevation (NSTEMI) myocardial infarction Status: Resolved (6) ARF (acute renal failure) ICD Code: N17.9 - ARF (acute renal failure) Status: Acute (7) Diabetes mellitus ICD Code: E11.9 - Diabetes mellitus Status: Chronic (8) Morbid obesity ICD Code: E66.01 - Morbid (severe) obesity due to excess calories Status: Acute (9) Severe chronic obstructive pulmonary disease ICD Code: J44.9 - Chronic obstructive pulmonary disease, unspecified Status: Acute (10) CKD (chronic kidney disease) stage 4, GFR 15-29 ml/min ICD Code: N18.4 - Chronic kidney disease, stage 4 (severe) Status: Acute Assessment and Plan 66-year-old man with Acute hypoxic respiratory failure-resolved COPD exacerbation-Resolved Bilateral lower lobe pneumonias/community acquired Bilateral small effusions prednisone 20 mg daily --Status post completed antibiotic treatment while hospitalized. --Symbicort and Spiriva NSTEMI LA thrombus Severe sepsis-resolved Hypertensive urgency-resolved -- Currently on heparin drip bridging to Coumadin however due to gross hematuria will hold both heparin and Coumadin 12/23/16 -- ASA 81 mg daily. Coreg 6.25 mg BID. Norvasc 10 mg daily. Clonidine to 0.3 mg po TID and hydralazine 100 mg by mouth daily 8 hour -- Cardiology -Dr Quadrat. Echo Mildly dilated left ventricle. LVEF 45-50%. Gross hematuria Hold heparin and Coumadin 12/23/16 New severe acute kidney injury Chronic kidney disease -- Nephrology started HD 12/12/16. Hemodialysis per nephrology -- Renal ultrasound-normal. Positive for proteinuria. -- Awaiting kidney function recovery. Community acquired bilateral lower lobe pneumonia Severe sepsis-Resolved Patient completed antibiotic therapy on 12/15/16. -- Received 2 units PRBC 12/08 transfusion for hemoglobin drop to 6.6 from 7.7. Type 2 diabetes-labile blood glucose -- Continue Levemir 20 units at bedtime and SSI Urinary retention/BPH --Continue Flomax 0.4 mg daily Prophylaxis: GI Prophylaxis Protonix DVT Prophylaxis -- SCDs Heparin drip and Coumadin, Problem Qualifiers (1) Sepsis: (2) Pneumonia: (3) ARF (acute renal failure): (4) Diabetes mellitus: Hernandez Gray MD Dec 23, 2016 11:29
[2016-12-23] MEDS: HEPARIN SODIUM - IV 10,000 UNITS/10 ML VIAL IVF PRN (11:47)
[2016-12-23] MEDS: EPOETIN ALFA 10,000 UNITS/ML VIAL IV PRN (11:47)
[2016-12-23] MEDS: GENTAMICIN SULFATE (DIALYSIS USE ONLY) 20 MG/2 ML VIAL IV PRN (11:48)
[2016-12-23] MEDS: ACETAMINOPHEN 325 MG TAB PO PRN (22:14)
[2016-12-23] MEDS: INSULIN DETEMIR 100 UNITS/ML VIAL SQ SCH (22:18)
[2016-12-24] VITALS (7 sets, daily range): BP systolic 124–153; BP diastolic 58–69; PULSE 58–74; RESP 18–20; TEMP 98.1–100.5; O2SAT 95–98
[2016-12-24] MEDS: CHLORHEXIDINE GLUCONATE 2 % 1 PACK (2 CLOTHS) TOP SCH (04:00)
[2016-12-24] MEDS: hydrALAZINE HCL 50 MG TAB PO SCH ×3 (06:43→22:03)
[2016-12-24] MEDS: INSULIN NovoLIN REGULAR SUPPLEMENTAL SCALE SQ SCH ×3 (06:48→18:00)
[2016-12-24] MEDS: CHLORHEXIDINE 0.12% (ORAL KIT) 15 ML CUP MT SCH ×2 (08:00→20:00)
[2016-12-24] MEDS: CARVEDILOL 6.25 MG TAB PO SCH ×2 (08:49→22:03)
[2016-12-24] MEDS: CALCIUM ACETATE 667 MG CAP PO SCH ×3 (08:51→18:49)
[2016-12-24] MEDS: ASPIRIN 81 MG CHEW TAB CHEW SCH (08:52)
[2016-12-24] MEDS: CALCITRIOL 0.25 MCG CAP PO SCH (08:52)
[2016-12-24] MEDS: TAMSULOSIN HCL 0.4 MG CAP PO SCH (08:52)
[2016-12-24] MEDS: ARTIFICIAL TEARS OPTH SOLN 15 ML BTL EACH EYE SCH ×3 (08:53→18:00)
[2016-12-24] MEDS: cloNIDine HCL 0.3 MG TAB PO SCH ×2 (08:53→16:00)
[2016-12-24] MEDS: SODIUM CHLORIDE 0.9% FLUSH 10 ML FLUSH IV FLUSH SCH ×2 (08:53→22:03)
[2016-12-24] MEDS: BUDESONIDE-FORMOTEROL 160/4.5 MCG INHALER INH SCH ×2 (08:54→21:00)
[2016-12-24] MEDS: SODIUM CHLORIDE 0.9% FLUSH 10 ML FLUSH IVF SCH (08:54)
[2016-12-24] MEDS: TIOTROPIUM BROMIDE 18 MCG INH INH SCH (08:54)
--- NOTE | 2016-12-24 09:55 | HHI.PR ---
Subjective Remarks Follow-up sepsis/LA thrombus/end-stage renal disease requiring hemodialysis 12/18/16-patient seen and examined, BP slightly up. Labile blood glucose. Patient denies any nausea or vomiting. No acute event overnight 12/19/16-patient seen and examined, had hemodialysis today and states he is tired 12/20/16-patient seen and examined; denies any chest pain or shortness of breath. Complains of urinary retention since Young was removed yesterday 12/21/16-patient seen and examined; he had HD today and denies any Shortness of breath 12/22/16-patient seen and examined, stable and no complaint today 12/23/16-patient seen and examined, has no complaint however Young with evidence of gross hematuria 12/24/16-patient seen and examined, still with gross hematuria. Denies any shortness of breath. Vitals stable Objective Vitals Vital Signs Date Time Temp Pulse Resp B/P (MAP) Pulse Ox O2 Delivery O2 Flow Rate FiO2 12/24/16 08:00 98.2 61 18 138/65 (89) 98 12/24/16 04:00 98.2 63 18 142/67 (92) 98 12/24/16 00:00 100.5 74 18 142/68 (92) 98 12/24/16 00:00 Room Air 12/23/16 20:08 74 12/23/16 20:00 99.8 74 18 160/72 (101) 97 12/23/16 20:00 Room Air 12/23/16 16:00 96 Room Air 12/23/16 16:00 99.0 82 20 160/70 (100) 96 12/23/16 13:30 97 Room Air 12/23/16 12:00 97.7 67 20 151/72 (98) 97 12/23/16 12:00 98.3 72 20 139/63 (88) 97 I/O 12/23/16 12/23/16 12/23/16 12/24/16 12/24/16 12/24/16 07:00 15:00 23:00 07:00 15:00 23:00 Intake Total 478 ml 480 ml 570 ml Output Total 850 ml 3300 ml 550 ml 725 ml Balance -372 ml -3300 ml -70 ml -155 ml Intake Oral 360 ml 480 ml 570 ml IV Total 118 ml Output Urine Total 850 ml 300 ml 550 ml 725 ml Hemodialysis 3000 ml # Bowel Movements 0 0 0 Result Diagram: 12/23/1673212/23/16732 Objective Remarks GENERAL: NAD SKIN: Warm and dry. HEAD: Normocephalic. EYES: No scleral icterus. No injection or drainage. NECK: Supple, trachea midline. No JVD or lymphadenopathy. CARDIOVASCULAR: Regular rate and rhythm without murmurs, gallops, or rubs. RESPIRATORY: Breath sounds equal bilaterally. No accessory muscle use. GASTROINTESTINAL: Abdomen soft, non-tender, nondistended. MUSCULOSKELETAL: No cyanosis; +1edema BLE. BACK: Nontender without obvious deformity. No CVA tenderness. A/P Problem List: (1) Respiratory failure ICD Code: J96.90 - Respiratory failure, unspecified, unspecified whether with hypoxia or hypercapnia Status: Acute (2) Sepsis ICD Code: A41.9 - Sepsis, unspecified organism Status: Acute (3) Pneumonia ICD Code: J18.9 - Pneumonia, unspecified organism Status: Acute (4) left atrial thrombus Status: Acute (5) NSTEMI (non-ST elevated myocardial infarction) ICD Code: I21.4 - Non-ST elevation (NSTEMI) myocardial infarction Status: Resolved (6) ARF (acute renal failure) ICD Code: N17.9 - ARF (acute renal failure) Status: Acute (7) Diabetes mellitus ICD Code: E11.9 - Diabetes mellitus Status: Chronic (8) Morbid obesity ICD Code: E66.01 - Morbid (severe) obesity due to excess calories Status: Acute (9) Severe chronic obstructive pulmonary disease ICD Code: J44.9 - Chronic obstructive pulmonary disease, unspecified Status: Acute (10) CKD (chronic kidney disease) stage 4, GFR 15-29 ml/min ICD Code: N18.4 - Chronic kidney disease, stage 4 (severe) Status: Acute Assessment and Plan 66-year-old man with Acute hypoxic respiratory failure-resolved COPD exacerbation-Resolved Bilateral lower lobe pneumonias/community acquired Bilateral small effusions prednisone 20 mg daily --Status post completed antibiotic treatment while hospitalized. --Symbicort and Spiriva NSTEMI LA thrombus Severe sepsis-resolved Hypertensive urgency-resolved -- Currently on heparin drip bridging to Coumadin however due to gross hematuria , will continue to hold both heparin and Coumadin -- ASA 81 mg daily. Coreg 6.25 mg BID. Norvasc 10 mg daily. Clonidine to 0.3 mg po TID and hydralazine 100 mg by mouth daily 8 hour -- Cardiology -Dr Chapin. Echo Mildly dilated left ventricle. LVEF 45-50%. Gross hematuria Continue to Hold heparin and Coumadin New severe acute kidney injury Chronic kidney disease -- Nephrology started HD 12/12/16. Hemodialysis per nephrology -- Renal ultrasound-normal. Positive for proteinuria. --Patient will need permacath placement next week -- Awaiting kidney function recovery. Community acquired bilateral lower lobe pneumonia Severe sepsis-Resolved Patient completed antibiotic therapy on 12/15/16. -- Received 2 units PRBC 12/08 transfusion for hemoglobin drop to 6.6 from 7.7. Type 2 diabetes-labile blood glucose -- Continue Levemir 20 units at bedtime and SSI Urinary retention/BPH --Continue Flomax 0.4 mg daily Prophylaxis: GI Prophylaxis Protonix DVT Prophylaxis -- SCDs Problem Qualifiers (1) Sepsis: (2) Pneumonia: (3) ARF (acute renal failure): (4) Diabetes mellitus: Hernandez Gray MD Dec 24, 2016 09:55
[2016-12-24 10:45] LABS: INTERNATIONAL NORMALIZED RATIO 1.5 RATIO; PROTHROMBIN TIME - PATIENT 16.6 SEC (9.8-11.6)
--- NOTE | 2016-12-24 14:50 | HHI.NPPN ---
Subjective History of Present Illness 66-year-old male with past medical history of hypertension, diabetes mellitus, history of cerebrovascular accident with left-sided weakness, hyperlipidemia, bronchial asthma, chronic kidney disease who was admitted because of shortness of breath and chest pain. I was called to see the patient because of elevated BUN and creatinine. The patient was diagnosed here with non-ST elevation [place]. The patient has history of chronic kidney disease. Additional Remarks Patient is alert, eating well, no SOB. Objective Data Data Vital Signs Date Time Temp Pulse Resp B/P (MAP) Pulse Ox O2 Delivery O2 Flow Rate FiO2 12/24/16 12:00 98.1 62 18 124/58 (80) 98 12/24/16 08:00 98.2 61 18 138/65 (89) 98 12/24/16 04:00 98.2 63 18 142/67 (92) 98 12/24/16 00:00 100.5 74 18 142/68 (92) 98 12/24/16 00:00 Room Air 12/23/16 20:08 74 12/23/16 20:00 99.8 74 18 160/72 (101) 97 12/23/16 20:00 Room Air 12/23/16 16:00 96 Room Air 12/23/16 16:00 99.0 82 20 160/70 (100) 96 -: 12/23/16 0733 12/23/16 0733 Physical Exam General Appearance: No Acute Distress, Comfortable Eyes Eye Exam: Pupils Equal Throat Throat Exam: Oral Mucosa [place] & Moist Neck Neck Exam: Neck Supple Pulmonary Resp Exam: No Distress, Rhonchi, Decreased Bases, Diminished Breath Sounds Cardiology CV Exam: Regular, Normal Sinus Rhythm Gastrointestinal/Abdomen GI Exam: Soft, Non-Tender, Bowel Sounds Present Extremeties Extremities Exam: Moderate Edema Neurologic Neuro Exam: Alert, Awake Psychiatric Psych Exam: Appropriate Responses Assessment/Plan Assessment Summary: WILLIE/Acute Renal Failure, CHF, CKD Stage IV Problem List: (1) NSTEMI (non-ST elevated myocardial infarction) ICD Codes: I21.4 - Non-ST elevation (NSTEMI) myocardial infarction Status: Resolved (2) Diabetes mellitus ICD Codes: E11.9 - Diabetes mellitus Status: Chronic (3) Asthma ICD Codes: J45.909 - Asthma Status: Chronic (4) Shortness of breath ICD Codes: R06.02 - Shortness of breath Status: Acute (5) Leg edema ICD Codes: R60.0 - Leg edema Status: Acute (6) Hypertension ICD Codes: I10 - Hypertension Status: Chronic (7) CKD (chronic kidney disease) stage 4, GFR 15-29 ml/min ICD Codes: N18.4 - Chronic kidney disease, stage 4 (severe) Status: Acute (8) ARF (acute renal failure) ICD Codes: N17.9 - ARF (acute renal failure) Status: Acute Plan Patient has last HD done yesterday. Creatinine is still elevated, vascath not working well needs PermCath On IV Heparin and Coumadin. Hold Coumadin as plan to place PermCath as Vascath malfunctioning Possible Kidney Biopsy and PermCath on Sunday if not better. INR 1.5 Dr. Carbone to decide Problem Qualifiers (1) Diabetes mellitus: (2) ARF (acute renal failure): Shawn Nye MD Dec 24, 2016 14:50
[2016-12-24] MEDS: ACETAMINOPHEN 325 MG TAB PO PRN (22:03)
[2016-12-24] MEDS: INSULIN DETEMIR 100 UNITS/ML VIAL SQ SCH (22:07)
[2016-12-25] VITALS: BP 154/68; PULSE 71; RESP 20; TEMP 98.3; O2SAT 98
[2016-12-25] MEDS: cloNIDine HCL 0.3 MG TAB PO SCH ×3 (00:11→16:39)
[2016-12-25] MEDS: INSULIN NovoLIN REGULAR SUPPLEMENTAL SCALE SQ SCH ×4 (00:18→17:35)
[2016-12-25 04:00] VITALS: BP 134/63; PULSE 72; RESP 20; TEMP 97.9
[2016-12-25] MEDS: CHLORHEXIDINE GLUCONATE 2 % 1 PACK (2 CLOTHS) TOP SCH (04:00)
[2016-12-25 06:20] LABS: INTERNATIONAL NORMALIZED RATIO 1.2 RATIO; PROTHROMBIN TIME - PATIENT 13.5 SEC (9.8-11.6)
[2016-12-25] MEDS: hydrALAZINE HCL 50 MG TAB PO SCH ×3 (06:22→21:40)
[2016-12-25] MEDS: CHLORHEXIDINE 0.12% (ORAL KIT) 15 ML CUP MT SCH ×2 (08:00→20:00)
[2016-12-25 08:04] VITALS: BP 147/70; PULSE 65; RESP 18; TEMP 98.8; O2SAT 98
[2016-12-25] MEDS: TAMSULOSIN HCL 0.4 MG CAP PO SCH (08:57)
[2016-12-25] MEDS: CALCIUM ACETATE 667 MG CAP PO SCH ×3 (08:57→17:33)
[2016-12-25] MEDS: BUDESONIDE-FORMOTEROL 160/4.5 MCG INHALER INH SCH ×2 (08:58→21:42)
[2016-12-25] MEDS: ASPIRIN 81 MG CHEW TAB CHEW SCH (08:58)
[2016-12-25] MEDS: ARTIFICIAL TEARS OPTH SOLN 15 ML BTL EACH EYE SCH ×3 (08:58→17:33)
[2016-12-25] MEDS: CARVEDILOL 6.25 MG TAB PO SCH ×2 (08:58→21:41)
[2016-12-25] MEDS: TIOTROPIUM BROMIDE 18 MCG INH INH SCH (08:58)
[2016-12-25] MEDS: CALCITRIOL 0.25 MCG CAP PO SCH (08:58)
[2016-12-25] MEDS: SODIUM CHLORIDE 0.9% FLUSH 10 ML FLUSH IV FLUSH SCH ×2 (09:15→21:40)
[2016-12-25] MEDS: SODIUM CHLORIDE 0.9% FLUSH 10 ML FLUSH IVF SCH (09:15)
--- NOTE | 2016-12-25 11:00 | HHI.PR ---
Subjective Remarks Follow-up sepsis/LA thrombus/end-stage renal disease requiring hemodialysis 12/18/16-patient seen and examined, BP slightly up. Labile blood glucose. Patient denies any nausea or vomiting. No acute event overnight 12/19/16-patient seen and examined, had hemodialysis today and states he is tired 12/20/16-patient seen and examined; denies any chest pain or shortness of breath. Complains of urinary retention since Young was removed yesterday 12/21/16-patient seen and examined; he had HD today and denies any Shortness of breath 12/22/16-patient seen and examined, stable and no complaint today 12/23/16-patient seen and examined, has no complaint however Young with evidence of gross hematuria 12/24/16-patient seen and examined, still with gross hematuria. Denies any shortness of breath. Vitals stable 12/25/16-patient seen and examined; complains of abdominal pain and states he had no BM over the past few days. Still with gross hematuria Objective Vitals Vital Signs Date Time Temp Pulse Resp B/P (MAP) Pulse Ox O2 Delivery O2 Flow Rate FiO2 12/25/16 08:04 98.8 65 18 147/70 (95) 98 12/25/16 04:00 Room Air 12/25/16 04:00 97.9 72 20 134/63 (86) 12/25/16 00:00 Room Air 12/25/16 00:00 98.3 71 20 154/68 (96) 98 12/24/16 20:05 68 12/24/16 20:00 98.3 74 20 153/69 (97) 98 12/24/16 20:00 Room Air 12/24/16 16:00 98.2 58 18 134/65 (88) 95 12/24/16 12:00 98.1 62 18 124/58 (80) 98 I/O 12/24/16 12/24/16 12/24/16 12/25/16 12/25/16 12/25/16 07:00 15:00 23:00 07:00 15:00 23:00 Intake Total 570 ml 720 ml 710 ml Output Total 725 ml 500 ml 1425 ml Balance -155 ml 220 ml -715 ml Intake Oral 570 ml 720 ml 710 ml Output Urine Total 725 ml 500 ml 1425 ml # Bowel Movements 0 0 0 Result Diagram: 12/23/16 0733 12/23/16 0733 Imaging Last Impressions Chest X-Ray 12/13/16 0600 Signed Impressions: Service Date/Time: Tuesday, December 13, 2016 04:54 - CONCLUSION: Persistent lobar consolidation left lower lung. Jose Roberto Cheema MD Chest CT 12/08/16 0000 Signed Impressions: Service Date/Time: Thursday, December 08, 2016 14:02 - CONCLUSION: 1. Bilateral lower lobe consolidating airspace disease. 2. Small to moderate bilateral pleural effusions; larger on the left. 3. Cardiomegaly. 4. Endotracheal and nasogastric tubes in good position. Tutu Christianson MD Renal Ultrasound 12/07/16 0000 Signed Impressions: Service Date/Time: November 07:54 - CONCLUSION: Unremarkable and stable bilateral renal ultrasound. No evidence of hydronephrosis. Baron Medrano MD Objective Remarks GENERAL: NAD SKIN: Warm and dry. HEAD: Normocephalic. EYES: No scleral icterus. No injection or drainage. NECK: Supple, trachea midline. No JVD or lymphadenopathy. CARDIOVASCULAR: Regular rate and rhythm without murmurs, gallops, or rubs. RESPIRATORY: Breath sounds equal bilaterally. No accessory muscle use. GASTROINTESTINAL: Abdomen soft, non-tender, nondistended. MUSCULOSKELETAL: No cyanosis; +1edema BLE. BACK: Nontender without obvious deformity. No CVA tenderness. A/P Problem List: (1) Respiratory failure ICD Code: J96.90 - Respiratory failure, unspecified, unspecified whether with hypoxia or hypercapnia Status: Acute (2) Sepsis ICD Code: A41.9 - Sepsis, unspecified organism Status: Acute (3) Pneumonia ICD Code: J18.9 - Pneumonia, unspecified organism Status: Acute (4) left atrial thrombus Status: Acute (5) NSTEMI (non-ST elevated myocardial infarction) ICD Code: I21.4 - Non-ST elevation (NSTEMI) myocardial infarction Status: Resolved (6) ARF (acute renal failure) ICD Code: N17.9 - ARF (acute renal failure) Status: Acute (7) Diabetes mellitus ICD Code: E11.9 - Diabetes mellitus Status: Chronic (8) Morbid obesity ICD Code: E66.01 - Morbid (severe) obesity due to excess calories Status: Acute (9) Severe chronic obstructive pulmonary disease ICD Code: J44.9 - Chronic obstructive pulmonary disease, unspecified Status: Acute (10) CKD (chronic kidney disease) stage 4, GFR 15-29 ml/min ICD Code: N18.4 - Chronic kidney disease, stage 4 (severe) Status: Acute Assessment and Plan 66-year-old man with Acute hypoxic respiratory failure-resolved COPD exacerbation-Resolved Bilateral lower lobe pneumonias/community acquired Bilateral small effusions Taper prednisone 20 mg daily --Status post completed antibiotic treatment while hospitalized. --Symbicort and Spiriva NSTEMI LA thrombus Severe sepsis-resolved Hypertensive urgency-resolved -- Currently on heparin drip bridging to Coumadin however due to gross hematuria , will continue to hold both heparin and Coumadin -- ASA 81 mg daily. Coreg 6.25 mg BID. Norvasc 10 mg daily. Clonidine to 0.3 mg po TID and hydralazine 100 mg by mouth daily 8 hour -- Cardiology -Dr Quadrat. Echo Mildly dilated left ventricle. LVEF 45-50%. Gross hematuria Continue to Hold heparin and Coumadin New severe acute kidney injury Chronic kidney disease -- Nephrology started HD 12/12/16. Hemodialysis per nephrology -- Renal ultrasound-normal. Positive for proteinuria. --Patient will need permacath placement as well as renal biopsy possible this week if no improvement Community acquired bilateral lower lobe pneumonia Severe sepsis-Resolved Patient completed antibiotic therapy on 12/15/16. -- Received 2 units PRBC 12/08 transfusion for hemoglobin drop to 6.6 from 7.7. Type 2 diabetes-labile blood glucose -- Continue Levemir 20 units at bedtime and SSI Urinary retention/BPH --Continue Flomax 0.4 mg daily Constipation Stool softener Prophylaxis: GI Prophylaxis Protonix DVT Prophylaxis -- SCDs Problem Qualifiers (1) Sepsis: (2) Pneumonia: (3) ARF (acute renal failure): (4) Diabetes mellitus: Hernandez Gray MD Dec 25, 2016 10:59
[2016-12-25 12:04] VITALS: BP 155/73; PULSE 71; RESP 18; TEMP 98.1; O2SAT 95
[2016-12-25] MEDS ORDERED: MAGNESIUM CITRATE SOLN 300 ML BTL PO ONE (13:00)
[2016-12-25 16:04] VITALS: BP 151/63; PULSE 74; RESP 20; TEMP 99.1; O2SAT 95
--- NOTE | 2016-12-25 18:42 | PD.CARD.PN ---
Subjective Subjective Remarks No CP or SOB, comfortable Objective Medications Current Medications Medications (Trade) Dose Ordered Sig/Abby Route Start Time Stop Time Status Last Admin (D50w (Vial) Inj) 25 ml UNSCH PRN IV PUSH 12/07/16 00:45 (NovoLIN R SUPPLEMENTAL SCALE) 1 Q6HR SQ 12/07/16 06:00 12/25/16 17:35 (Zofran Inj) 4 mg Q6H PRN IV 12/07/16 00:45 Heparin Sodium/ Dextrose 250 ml @ 0 mls/hr TITRATE IV 12/07/16 01:45 Future Hold 12/22/16 20:23 (NS Flush) DAILY IVF 12/07/16 15:30 12/25/16 09:15 (NS Flush) UNSCH PRN IVF 12/07/16 15:30 (Peridex 0.12% Liq) 15 ml BID@08,20 MT 12/07/16 20:00 12/21/16 08:00 (Albuterol Neb) 2.5 mg Q2HR NEB PRN NEB 12/07/16 15:30 12/23/16 10:23 (NS Flush) 2 ml UNSCH PRN IV FLUSH 12/07/16 15:30 12/12/16 11:32 (NS Flush) 2 ml BID IV FLUSH 12/07/16 21:00 12/25/16 09:15 (Tylenol) 650 mg Q6H PRN PO 12/07/16 15:30 12/24/16 22:03 (Tears Naturale Opth Soln) 1 drop TID EACH EYE 12/07/16 18:00 12/25/16 17:33 Miscellaneous Information 1 Q361D XX 12/07/16 15:30 (Chlorhexidine 2% Cloth) Taper DAILY@04 TOP 12/08/16 04:00 12/04/17 03:59 12/14/16 04:00 (Chlorhexidine 2% Cloth) 3 pack UNSCH PRN TOP 12/07/16 15:30 (Milk Of Magnesia Liq) 30 ml Q12H PRN PO 12/07/16 15:30 12/22/16 23:15 (Senokot) 17.2 mg Q12H PRN PO 12/07/16 15:30 12/17/16 09:10 (Aspirin Chew) 81 mg DAILY CHEW 12/08/16 12:00 12/25/16 08:58 (Trandate Inj) 20 mg Q2H PRN IV 12/10/16 00:15 12/14/16 08:05 (Morphine Inj) 2 mg Q3H PRN IV PUSH 12/10/16 09:15 12/12/16 14:04 (Coreg) 6.25 mg Q12HR PO 12/10/16 10:00 12/25/16 08:58 (Phoslo) 1,334 mg TID PO 12/10/16 13:00 12/25/16 17:33 (Rocaltrol) 0.5 mcg DAILY PO 12/10/16 12:45 12/25/16 08:58 (Symbicort 160-4.5 Inh) 1 puff Q12HR INH 12/11/16 12:00 12/25/16 08:58 (Spiriva Inh) 18 mcg DAILY INH 12/11/16 12:00 12/25/16 08:58 (Norvasc) 10 mg DAILY PO 12/11/16 15:15 12/25/16 08:58 (Apresoline Inj) 20 mg Q4H PRN IV PUSH 12/11/16 15:15 12/18/16 04:26 (Catapres) 0.3 mg Q8H PO 12/12/16 08:00 12/25/16 16:39 Sodium Chloride 1,000 ml @ 0 mls/hr Q0M PRN IV 12/12/16 12:11 12/16/16 11:40 (Heparin Inj) 8,000 units UNSCH PRN IVF 12/12/16 12:15 12/23/16 11:47 Sodium Chloride 1,000 ml @ 200 mls/hr Q5H PRN IV 12/12/16 12:11 Sodium Chloride 1,000 ml @ 0 mls/hr Q0M PRN IV 12/12/16 12:11 12/12/16 17:04 (Mannitol Inj) 12.5 gm UNSCH PRN IV 12/12/16 12:15 (Albumin 25% Inj) 25 gm UNSCH PRN IV 12/12/16 12:15 (NS Flush) 5 ml UNSCH PRN IV FLUSH 12/12/16 12:15 12/21/16 10:42 (Heparin Inj) UNSCH PRN .XX 12/12/16 12:15 12/19/16 12:15 (Gentamicin (Dialysis) Inj) 20 mg UNSCH PRN IV 12/12/16 12:15 12/23/16 11:48 (Zofran Inj) 4 mg UNSCH PRN IV 12/12/16 12:15 (Tylenol) 650 mg UNSCH PRN PO 12/12/16 12:15 (Benadryl) 25 mg UNSCH PRN PO 12/12/16 12:15 (Nitrostat Sl) 0.4 mg UNSCH PRN SL 12/12/16 12:15 (Catapres) 0.1 mg UNSCH PRN PO 12/12/16 12:15 12/24/16 18:49 (Epogen Inj) 10,000 units UNSCH PRN IV 12/12/16 12:15 12/23/16 11:47 (Gelfoam 12 Mm/7 Mm Top) 1 foam UNSCH PRN TOP 12/12/16 12:15 (Coumadin) 4 mg DAILY@16 PO 12/13/16 16:00 Future Hold 12/22/16 16:25 Pharmacy Profile Note 0 ml @ 0 mls/hr UNSCH OTHER 12/13/16 12:00 (Apresoline) 100 mg Q8HR PO 12/17/16 22:00 12/25/16 12:55 (Flomax) 0.4 mg DAILY PO 12/21/16 09:00 12/25/16 08:57 (Levemir Inj) 20 units HS SQ 12/20/16 21:00 12/24/16 22:07 Vital Signs / I&O Vital Signs Date Time Temp Pulse Resp B/P (MAP) Pulse Ox O2 Delivery O2 Flow Rate FiO2 12/25/16 16:04 99.1 74 20 151/63 (92) 95 12/25/16 12:04 98.1 71 18 155/73 (100) 95 12/25/16 08:04 98.8 65 18 147/70 (95) 98 12/25/16 04:00 Room Air 12/25/16 04:00 97.9 72 20 134/63 (86) 12/25/16 00:00 Room Air 12/25/16 00:00 98.3 71 20 154/68 (96) 98 12/24/16 20:05 68 12/24/16 20:00 98.3 74 20 153/69 (97) 98 12/24/16 20:00 Room Air I/O 12/24/16 12/24/16 12/24/16 12/25/16 12/25/16 12/25/16 06:59 14:59 22:59 06:59 14:59 22:59 Intake Total 570 ml 720 ml 710 ml 1720 ml Output Total 725 ml 500 ml 1425 ml 850 ml Balance -155 ml 220 ml -715 ml 870 ml Intake Oral 570 ml 720 ml 710 ml 1720 ml Output Urine Total 725 ml 500 ml 1425 ml 850 ml # Bowel Movements 0 0 0 1 Physical Exam GENERAL: In NAD SKIN: Warm and dry. HEAD: Normocephalic. EYES: No scleral icterus. No injection or drainage. NECK: Supple, trachea midline. No JVD or lymphadenopathy. CARDIOVASCULAR: Regular rate and rhythm, mild tachycardia, no murmurs, gallops, or rubs. RESPIRATORY: Breath sounds equal bilaterally. No accessory muscle use. GASTROINTESTINAL: Abdomen soft, non-tender, nondistended. MUSCULOSKELETAL: No cyanosis, mild edema, dry, scaly skin Laboratory Laboratory Tests Test 12/25/16 05:37 Prothrombin Time 13.5 SEC Prothromb Time International Ratio 1.2 RATIO Imaging Last Impressions Chest X-Ray 12/13/16 0600 Signed Impressions: Service Date/Time: Tuesday, December 13, 2016 04:54 - CONCLUSION: Persistent lobar consolidation left lower lung. Jose Roberto Cheema MD Chest CT 12/08/16 0000 Signed Impressions: Service Date/Time: Thursday, December 08, 2016 14:02 - CONCLUSION: 1. Bilateral lower lobe consolidating airspace disease. 2. Small to moderate bilateral pleural effusions; larger on the left. 3. Cardiomegaly. 4. Endotracheal and nasogastric tubes in good position. Tutu Christianson MD Renal Ultrasound 12/07/16 0000 Signed Impressions: Service Date/Time: November 07:54 - CONCLUSION: Unremarkable and stable bilateral renal ultrasound. No evidence of hydronephrosis. Baron Medrano MD Assessment and Plan Problem List: (1) Respiratory failure ICD Codes: J96.90 - Respiratory failure, unspecified, unspecified whether with hypoxia or hypercapnia Status: Acute (2) Sepsis ICD Codes: A41.9 - Sepsis, unspecified organism Status: Acute (3) Pneumonia ICD Codes: J18.9 - Pneumonia, unspecified organism Status: Acute (4) ARF (acute renal failure) ICD Codes: N17.9 - ARF (acute renal failure) Status: Acute (5) Elevated troponin ICD Codes: R74.8 - Abnormal levels of other serum enzymes Status: Acute (6) Diabetes mellitus ICD Codes: E11.9 - Diabetes mellitus Status: Chronic (7) Hypertension ICD Codes: I10 - Hypertension Status: Chronic (8) Morbid obesity ICD Codes: E66.01 - Morbid (severe) obesity due to excess calories Status: Acute (9) Anemia ICD Codes: D64.9 - Anemia Status: Acute Assessment and Plan No new cardiac issues. No angina or CHF. Dialysis well tolerated. BP better controlled, continue and titrate therapy for severe HTN. Continue aggressive risk factor modification. Increase activity, continue PT. Problem Qualifiers (1) Sepsis: (2) Pneumonia: (3) ARF (acute renal failure): (4) Diabetes mellitus: (5) Anemia: Mark Chapin MD Dec 25, 2016 18:41
[2016-12-25 20:00] VITALS: BP 153/71; PULSE 66; RESP 18; TEMP 98.8; O2SAT 96
[2016-12-25 20:38] LABS: BICARBONATE 25.1 MEQ/L (21.0-32.0); POTASSIUM 5.1 MEQ/L (3.5-5.1)
[2016-12-25] MEDS: INSULIN DETEMIR 100 UNITS/ML VIAL SQ SCH (21:54)
--- NOTE | 2016-12-25 22:06 | HHI.NPPN ---
Subjective History of Present Illness 66-year-old male with past medical history of hypertension, diabetes mellitus, history of cerebrovascular accident with left-sided weakness, hyperlipidemia, bronchial asthma, chronic kidney disease who was admitted because of shortness of breath and chest pain. I was called to see the patient because of elevated BUN and creatinine. The patient was diagnosed here with non-ST elevation ME. The patient has history of chronic kidney disease. Additional Remarks Patient is alert, eating well, no SOB, has mild cough, with nasal cannula. Objective Data Data 12/25/16 12/26/16 18:59 06:59 Intake Total 1720 ml Output Total 850 ml Balance 870 ml Intake Oral 1720 ml Output Urine Total 850 ml # Bowel Movements 1 Vital Signs Date Time Temp Pulse Resp B/P (MAP) Pulse Ox O2 Delivery O2 Flow Rate FiO2 12/25/16 16:04 99.1 74 20 151/63 (92) 95 12/25/16 12:04 98.1 71 18 155/73 (100) 95 12/25/16 08:04 98.8 65 18 147/70 (95) 98 12/25/16 07:00 Room Air 1.00 21 12/25/16 04:00 Room Air 12/25/16 04:00 97.9 72 20 134/63 (86) 12/25/16 00:00 Room Air 12/25/16 00:00 98.3 71 20 154/68 (96) 98 -: 12/23/16 0733 12/25/16 1942 Physical Exam General Appearance: No Acute Distress, Comfortable Eyes Eye Exam: Pupils Equal Throat Throat Exam: Oral Mucosa [place] & Moist Neck Neck Exam: Neck Supple Pulmonary Resp Exam: No Distress, Rhonchi, Decreased Bases, Diminished Breath Sounds Cardiology CV Exam: Regular, Normal Sinus Rhythm Gastrointestinal/Abdomen GI Exam: Soft, Non-Tender, Bowel Sounds Present Extremeties Extremities Exam: Moderate Edema Neurologic Neuro Exam: Alert, Awake Psychiatric Psych Exam: Appropriate Responses Assessment/Plan Assessment Summary: WILLIE/Acute Renal Failure, CHF, CKD Stage IV Problem List: (1) NSTEMI (non-ST elevated myocardial infarction) ICD Codes: I21.4 - Non-ST elevation (NSTEMI) myocardial infarction Status: Resolved (2) Diabetes mellitus ICD Codes: E11.9 - Diabetes mellitus Status: Chronic (3) Asthma ICD Codes: J45.909 - Asthma Status: Chronic (4) Shortness of breath ICD Codes: R06.02 - Shortness of breath Status: Acute (5) Leg edema ICD Codes: R60.0 - Leg edema Status: Acute (6) Hypertension ICD Codes: I10 - Hypertension Status: Chronic (7) CKD (chronic kidney disease) stage 4, GFR 15-29 ml/min ICD Codes: N18.4 - Chronic kidney disease, stage 4 (severe) Status: Acute (8) ARF (acute renal failure) ICD Codes: N17.9 - ARF (acute renal failure) Status: Acute Plan Patient has last HD done yesterday. Creatinine is still elevated, and GFR is low. Will consider Renal Biopsy if not better. Has 6 gm of proteinuria. Serology is negative. Most likely has End stage renal disease. On IV Heparin and Coumadin. Possible Kidney Biopsy and PermCath. Now off Coumadin, check coag. profile in AM, if normal, possible kidney Biopsy on Sun. Problem Qualifiers (1) Diabetes mellitus: (2) ARF (acute renal failure): Zoey Carbone MD Dec 25, 2016 22:06
[2016-12-26] VITALS: BP 145/67; PULSE 70; RESP 18; TEMP 98.1; O2SAT 100
[2016-12-26] MEDS: cloNIDine HCL 0.3 MG TAB PO SCH ×3 (00:30→15:22)
[2016-12-26] MEDS: INSULIN NovoLIN REGULAR SUPPLEMENTAL SCALE SQ SCH ×5 (00:32→23:41)
[2016-12-26 04:00] VITALS: BP 124/58; PULSE 60; RESP 20; TEMP 97.7; O2SAT 99
[2016-12-26] MEDS: CHLORHEXIDINE GLUCONATE 2 % 1 PACK (2 CLOTHS) TOP SCH (04:00)
[2016-12-26] MEDS: hydrALAZINE HCL 50 MG TAB PO SCH ×3 (05:16→20:42)
[2016-12-26] MEDS: CHLORHEXIDINE 0.12% (ORAL KIT) 15 ML CUP MT SCH ×2 (08:00→20:00)
[2016-12-26 08:50] VITALS: PULSE 68
[2016-12-26] MEDS: ARTIFICIAL TEARS OPTH SOLN 15 ML BTL EACH EYE SCH ×3 (09:00→17:54)
[2016-12-26] MEDS: SODIUM CHLORIDE 0.9% FLUSH 10 ML FLUSH IVF SCH (09:00)
[2016-12-26] MEDS: SODIUM CHLORIDE 0.9% FLUSH 10 ML FLUSH IV FLUSH SCH ×2 (09:00→20:38)
[2016-12-26] MEDS: CALCIUM ACETATE 667 MG CAP PO SCH ×3 (09:00→17:49)
[2016-12-26] MEDS: EPOETIN ALFA 10,000 UNITS/ML VIAL IV PRN (10:33)
[2016-12-26] MEDS: GENTAMICIN SULFATE (DIALYSIS USE ONLY) 20 MG/2 ML VIAL IV PRN (10:34)
[2016-12-26] MEDS: SODIUM CHLORIDE 0.9% FLUSH 10 ML FLUSH IV FLUSH PRN (10:34)
[2016-12-26] MEDS: HEPARIN SODIUM - IV 10,000 UNITS/10 ML VIAL IVF PRN (10:34)
[2016-12-26] MEDS: RESP: ALBUTEROL 2.5 MG/3 ML NEB (PRN) NEB (10:45)
[2016-12-26 12:35] VITALS: BP 148/70; PULSE 71; RESP 20; TEMP 98.7; O2SAT 97
[2016-12-26] MEDS: CALCITRIOL 0.25 MCG CAP PO SCH (12:43)
[2016-12-26] MEDS: CARVEDILOL 6.25 MG TAB PO SCH ×2 (12:44→20:37)
[2016-12-26] MEDS: ASPIRIN 81 MG CHEW TAB CHEW SCH (12:44)
[2016-12-26] MEDS: TAMSULOSIN HCL 0.4 MG CAP PO SCH (12:44)
[2016-12-26] MEDS: BUDESONIDE-FORMOTEROL 160/4.5 MCG INHALER INH SCH ×2 (12:45→20:38)
[2016-12-26] MEDS: TIOTROPIUM BROMIDE 18 MCG INH INH SCH (12:45)
--- NOTE | 2016-12-26 13:40 | HHI.PR ---
Subjective Remarks Follow-up sepsis/LA thrombus/end-stage renal disease requiring hemodialysis 12/18/16-patient seen and examined, BP slightly up. Labile blood glucose. Patient denies any nausea or vomiting. No acute event overnight 12/19/16-patient seen and examined, had hemodialysis today and states he is tired 12/20/16-patient seen and examined; denies any chest pain or shortness of breath. Complains of urinary retention since Young was removed yesterday 12/21/16-patient seen and examined; he had HD today and denies any Shortness of breath 12/22/16-patient seen and examined, stable and no complaint today 12/23/16-patient seen and examined, has no complaint however Young with evidence of gross hematuria 12/24/16-patient seen and examined, still with gross hematuria. Denies any shortness of breath. Vitals stable 12/25/16-patient seen and examined; complains of abdominal pain and states he had no BM over the past few days. Still with gross hematuria 12/26/16-patient seen and examined, returned from dialysis center. Still complains of constipations otherwise stable. Objective Vitals Vital Signs Date Time Temp Pulse Resp B/P (MAP) Pulse Ox O2 Delivery O2 Flow Rate FiO2 12/26/16 12:35 98.7 71 20 148/70 (96) 97 12/26/16 08:50 68 12/26/16 08:50 Room Air 12/26/16 04:00 97.7 60 20 124/58 (80) 99 12/26/16 00:00 98.1 70 18 145/67 (93) 100 12/25/16 22:00 Room Air 12/25/16 20:00 98.8 66 18 153/71 (98) 96 12/25/16 20:00 66 12/25/16 16:04 99.1 74 20 151/63 (92) 95 I/O 12/25/16 12/25/16 12/25/16 12/26/16 12/26/16 12/26/16 07:00 15:00 23:00 07:00 15:00 23:00 Intake Total 710 ml 1720 ml 240 ml Output Total 1425 ml 850 ml 950 ml 3000 ml Balance -715 ml 870 ml -710 ml -3000 ml Intake Oral 710 ml 1720 ml 240 ml Output Urine Total 1425 ml 850 ml 950 ml Hemodialysis 3000 ml # Bowel Movements 0 1 2 Result Diagram: 12/23/16 0733 12/25/16 194 Objective Remarks GENERAL: NAD SKIN: Warm and dry. HEAD: Normocephalic. EYES: No scleral icterus. No injection or drainage. NECK: Supple, trachea midline. No JVD or lymphadenopathy. CARDIOVASCULAR: Regular rate and rhythm without murmurs, gallops, or rubs. RESPIRATORY: Breath sounds equal bilaterally. No accessory muscle use. GASTROINTESTINAL: Abdomen soft, non-tender, nondistended. MUSCULOSKELETAL: No cyanosis; +1edema BLE. BACK: Nontender without obvious deformity. No CVA tenderness. A/P Problem List: (1) Respiratory failure ICD Code: J96.90 - Respiratory failure, unspecified, unspecified whether with hypoxia or hypercapnia Status: Acute (2) Sepsis ICD Code: A41.9 - Sepsis, unspecified organism Status: Acute (3) Pneumonia ICD Code: J18.9 - Pneumonia, unspecified organism Status: Acute (4) left atrial thrombus Status: Acute (5) NSTEMI (non-ST elevated myocardial infarction) ICD Code: I21.4 - Non-ST elevation (NSTEMI) myocardial infarction Status: Resolved (6) ARF (acute renal failure) ICD Code: N17.9 - ARF (acute renal failure) Status: Acute (7) Diabetes mellitus ICD Code: E11.9 - Diabetes mellitus Status: Chronic (8) Morbid obesity ICD Code: E66.01 - Morbid (severe) obesity due to excess calories Status: Acute (9) Severe chronic obstructive pulmonary disease ICD Code: J44.9 - Chronic obstructive pulmonary disease, unspecified Status: Acute (10) CKD (chronic kidney disease) stage 4, GFR 15-29 ml/min ICD Code: N18.4 - Chronic kidney disease, stage 4 (severe) Status: Acute Assessment and Plan 66-year-old man with Acute hypoxic respiratory failure-resolved COPD exacerbation-Resolved Bilateral lower lobe pneumonias/community acquired Bilateral small effusions Taper prednisone 20 mg daily --Status post completed antibiotic treatment while hospitalized. --Symbicort and Spiriva NSTEMI LA thrombus Severe sepsis-resolved Hypertensive urgency-resolved -- Currently on heparin drip bridging to Coumadin however due to gross hematuria , will continue to hold both heparin and Coumadin -- ASA 81 mg daily. Coreg 6.25 mg BID. Norvasc 10 mg daily. Clonidine to 0.3 mg po TID and hydralazine 100 mg by mouth daily 8 hour -- Cardiology -Dr Chapin. Echo Mildly dilated left ventricle. LVEF 45-50%. Gross hematuria Continue to Hold heparin and Coumadin New severe acute kidney injury Chronic kidney disease -- Nephrology started HD 12/12/16. Hemodialysis per nephrology. Had HD today -- Renal ultrasound-normal. Positive for proteinuria. --Patient will need permacath placement as well as renal biopsy possible this week if no improvement Community acquired bilateral lower lobe pneumonia Severe sepsis-Resolved Patient completed antibiotic therapy on 12/15/16. -- Received 2 units PRBC 12/08 transfusion for hemoglobin drop to 6.6 from 7.7. Type 2 diabetes-labile blood glucose -- Continue Levemir 20 units at bedtime and SSI Urinary retention/BPH --Continue Flomax 0.4 mg daily Constipation Stool softener Prophylaxis: GI Prophylaxis Protonix DVT Prophylaxis -- SCDs Problem Qualifiers (1) Sepsis: (2) Pneumonia: (3) ARF (acute renal failure): (4) Diabetes mellitus: Hernandez Gray MD Dec 26, 2016 13:40
--- NOTE | 2016-12-26 13:51 | PD.CARD.PN ---
Subjective Subjective Remarks In dialysis, BP low once dialysis initiated, no CP or SOB Objective Medications Current Medications Medications (Trade) Dose Ordered Sig/Abby Route Start Time Stop Time Status Last Admin (D50w (Vial) Inj) 25 ml UNSCH PRN IV PUSH 12/07/16 00:45 (NovoLIN R SUPPLEMENTAL SCALE) 1 Q6HR SQ 12/07/16 06:00 12/26/16 13:06 (Zofran Inj) 4 mg Q6H PRN IV 12/07/16 00:45 Heparin Sodium/ Dextrose 250 ml @ 0 mls/hr TITRATE IV 12/07/16 01:45 Future Hold 12/22/16 20:23 (NS Flush) DAILY IVF 12/07/16 15:30 12/25/16 09:15 (NS Flush) UNSCH PRN IVF 12/07/16 15:30 (Peridex 0.12% Liq) 15 ml BID@08,20 MT 12/07/16 20:00 12/21/16 08:00 (Albuterol Neb) 2.5 mg Q2HR NEB PRN NEB 12/07/16 15:30 12/26/16 10:45 (NS Flush) 2 ml UNSCH PRN IV FLUSH 12/07/16 15:30 12/12/16 11:32 (NS Flush) 2 ml BID IV FLUSH 12/07/16 21:00 12/26/16 09:00 (Tylenol) 650 mg Q6H PRN PO 12/07/16 15:30 12/24/16 22:03 (Tears Naturale Opth Soln) 1 drop TID EACH EYE 12/07/16 18:00 12/26/16 13:00 Miscellaneous Information 1 Q361D XX 12/07/16 15:30 (Chlorhexidine 2% Cloth) Taper DAILY@04 TOP 12/08/16 04:00 12/04/17 03:59 12/14/16 04:00 (Chlorhexidine 2% Cloth) 3 pack UNSCH PRN TOP 12/07/16 15:30 (Milk Of Magnesia Liq) 30 ml Q12H PRN PO 12/07/16 15:30 12/22/16 23:15 (Senokot) 17.2 mg Q12H PRN PO 12/07/16 15:30 12/17/16 09:10 (Aspirin Chew) 81 mg DAILY CHEW 12/08/16 12:00 12/26/16 12:44 (Trandate Inj) 20 mg Q2H PRN IV 12/10/16 00:15 12/14/16 08:05 (Morphine Inj) 2 mg Q3H PRN IV PUSH 12/10/16 09:15 12/12/16 14:04 (Coreg) 6.25 mg Q12HR PO 12/10/16 10:00 12/26/16 12:44 (Phoslo) 1,334 mg TID PO 12/10/16 13:00 12/26/16 12:44 (Rocaltrol) 0.5 mcg DAILY PO 12/10/16 12:45 12/26/16 12:43 (Symbicort 160-4.5 Inh) 1 puff Q12HR INH 12/11/16 12:00 12/26/16 12:45 (Spiriva Inh) 18 mcg DAILY INH 12/11/16 12:00 12/26/16 12:45 (Norvasc) 10 mg DAILY PO 12/11/16 15:15 12/26/16 12:43 (Apresoline Inj) 20 mg Q4H PRN IV PUSH 12/11/16 15:15 12/18/16 04:26 (Catapres) 0.3 mg Q8H PO 12/12/16 08:00 12/26/16 12:43 Sodium Chloride 1,000 ml @ 0 mls/hr Q0M PRN IV 12/12/16 12:11 12/16/16 11:40 (Heparin Inj) 8,000 units UNSCH PRN IVF 12/12/16 12:15 12/26/16 10:34 Sodium Chloride 1,000 ml @ 200 mls/hr Q5H PRN IV 12/12/16 12:11 Sodium Chloride 1,000 ml @ 0 mls/hr Q0M PRN IV 12/12/16 12:11 12/12/16 17:04 (Mannitol Inj) 12.5 gm UNSCH PRN IV 12/12/16 12:15 (Albumin 25% Inj) 25 gm UNSCH PRN IV 12/12/16 12:15 (NS Flush) 5 ml UNSCH PRN IV FLUSH 8/15/17 12:15 12/26/16 10:34 (Heparin Inj) UNSCH PRN .XX 12/12/16 12:15 12/19/16 12:15 (Gentamicin (Dialysis) Inj) 20 mg UNSCH PRN IV 12/12/16 12:15 12/26/16 10:34 (Zofran Inj) 4 mg UNSCH PRN IV 12/12/16 12:15 (Tylenol) 650 mg UNSCH PRN PO 12/12/16 12:15 (Benadryl) 25 mg UNSCH PRN PO 12/12/16 12:15 (Nitrostat Sl) 0.4 mg UNSCH PRN SL 12/12/16 12:15 (Catapres) 0.1 mg UNSCH PRN PO 12/12/16 12:15 12/24/16 18:49 (Epogen Inj) 10,000 units UNSCH PRN IV 12/12/16 12:15 12/26/16 10:33 (Gelfoam 12 Mm/7 Mm Top) 1 foam UNSCH PRN TOP 12/12/16 12:15 (Coumadin) 4 mg DAILY@16 PO 12/13/16 16:00 Future Hold 12/22/16 16:25 Pharmacy Profile Note 0 ml @ 0 mls/hr UNSCH OTHER 12/13/16 12:00 (Apresoline) 100 mg Q8HR PO 12/17/16 22:00 12/26/16 05:16 (Flomax) 0.4 mg DAILY PO 12/21/16 09:00 12/26/16 12:44 (Levemir Inj) 20 units HS SQ 12/20/16 21:00 12/25/16 21:54 Vital Signs / I&O Vital Signs Date Time Temp Pulse Resp B/P (MAP) Pulse Ox O2 Delivery O2 Flow Rate FiO2 12/26/16 12:35 98.7 71 20 148/70 (96) 97 12/26/16 08:50 68 12/26/16 08:50 Room Air 12/26/16 04:00 97.7 60 20 124/58 (80) 99 12/26/16 00:00 98.1 70 18 145/67 (93) 100 12/25/16 22:00 Room Air 12/25/16 20:00 98.8 66 18 153/71 (98) 96 12/25/16 20:00 66 12/25/16 16:04 99.1 74 20 151/63 (92) 95 I/O 12/25/16 12/25/16 12/25/16 12/26/16 12/26/16 12/26/16 06:59 14:59 22:59 06:59 14:59 22:59 Intake Total 710 ml 1720 ml 240 ml Output Total 1425 ml 850 ml 950 ml 3000 ml Balance -715 ml 870 ml -710 ml -3000 ml Intake Oral 710 ml 1720 ml 240 ml Output Urine Total 1425 ml 850 ml 950 ml Hemodialysis 3000 ml # Bowel Movements 0 1 2 Physical Exam GENERAL: In NAD SKIN: Warm and dry. HEAD: Normocephalic. EYES: No scleral icterus. No injection or drainage. NECK: Supple, trachea midline. No JVD or lymphadenopathy. CARDIOVASCULAR: Regular rate and rhythm, mild tachycardia, no murmurs, gallops, or rubs. RESPIRATORY: Breath sounds equal bilaterally. No accessory muscle use. GASTROINTESTINAL: Abdomen soft, non-tender, nondistended. MUSCULOSKELETAL: No cyanosis, mild edema, dry, scaly skin Laboratory Laboratory Tests Test 12/25/16 19:42 Blood Urea Nitrogen 78 MG/DL Creatinine 6.02 MG/DL Random Glucose 291 MG/DL Calcium Level 9.5 MG/DL Sodium Level 134 MEQ/L Potassium Level 5.1 MEQ/L Chloride Level 101 MEQ/L Carbon Dioxide Level 25.1 MEQ/L Anion Gap 8 MEQ/L Estimat Glomerular Filtration Rate 9 ML/MIN Imaging Last Impressions Chest X-Ray 12/13/16 0600 Signed Impressions: Service Date/Time: Tuesday, December 13, 2016 04:54 - CONCLUSION: Persistent lobar consolidation left lower lung. Jose Roberto Cheema MD Chest CT 12/08/16 0000 Signed Impressions: Service Date/Time: Thursday, December 08, 2016 14:02 - CONCLUSION: 1. Bilateral lower lobe consolidating airspace disease. 2. Small to moderate bilateral pleural effusions; larger on the left. 3. Cardiomegaly. 4. Endotracheal and nasogastric tubes in good position. Tutu Christianson MD Renal Ultrasound 12/07/16 0000 Signed Impressions: Service Date/Time: November 07:54 - CONCLUSION: Unremarkable and stable bilateral renal ultrasound. No evidence of hydronephrosis. Baron Medrano MD Assessment and Plan Problem List: (1) Respiratory failure ICD Codes: J96.90 - Respiratory failure, unspecified, unspecified whether with hypoxia or hypercapnia Status: Acute (2) Sepsis ICD Codes: A41.9 - Sepsis, unspecified organism Status: Acute (3) Pneumonia ICD Codes: J18.9 - Pneumonia, unspecified organism Status: Acute (4) ARF (acute renal failure) ICD Codes: N17.9 - ARF (acute renal failure) Status: Acute (5) Elevated troponin ICD Codes: R74.8 - Abnormal levels of other serum enzymes Status: Acute (6) Diabetes mellitus ICD Codes: E11.9 - Diabetes mellitus Status: Chronic (7) Hypertension ICD Codes: I10 - Hypertension Status: Chronic (8) Morbid obesity ICD Codes: E66.01 - Morbid (severe) obesity due to excess calories Status: Acute (9) Anemia ICD Codes: D64.9 - Anemia Status: Acute Assessment and Plan Hypotensive during dialysis. Will decrease hydralazine dose. Continue aggressive risk factor modification. Increase activity, continue PT. Problem Qualifiers (1) Sepsis: (2) Pneumonia: (3) ARF (acute renal failure): (4) Diabetes mellitus: (5) Anemia: Mark Chapin MD Dec 26, 2016 13:50
[2016-12-26 15:29] LABS: APTT (PATIENT) 28.2 SEC (24.3-30.1); PROTHROMBIN TIME - PATIENT 11.4 SEC (9.8-11.6)
[2016-12-26 16:00] VITALS: BP 114/57; PULSE 67; RESP 18; TEMP 96; O2SAT 98
--- NOTE | 2016-12-26 16:30 | HHI.NPPN ---
Subjective History of Present Illness 66-year-old male with past medical history of hypertension, diabetes mellitus, history of cerebrovascular accident with left-sided weakness, hyperlipidemia, bronchial asthma, chronic kidney disease who was admitted because of shortness of breath and chest pain. I was called to see the patient because of elevated BUN and creatinine. The patient was diagnosed here with non-ST elevation [place]. The patient has history of chronic kidney disease. Additional Remarks Patient is alert, clinically same, not in distress. Objective Data Data 12/26/16 12/27/16 19:00 07:00 Output Total 3000 ml Balance -3000 ml Hemodialysis 3000 ml Vital Signs Date Time Temp Pulse Resp B/P (MAP) Pulse Ox O2 Delivery O2 Flow Rate FiO2 12/26/16 12:35 98.7 71 20 148/70 (96) 97 12/26/16 08:50 68 12/26/16 08:50 Room Air 12/26/16 04:00 97.7 60 20 124/58 (80) 99 12/26/16 00:00 98.1 70 18 145/67 (93) 100 12/25/16 22:00 Room Air 12/25/16 20:00 98.8 66 18 153/71 (98) 96 12/25/16 20:00 66 -: 12/23/16 0733 12/25/16 1942 Physical Exam General Appearance: No Acute Distress, Comfortable Eyes Eye Exam: Pupils Equal Throat Throat Exam: Oral Mucosa [place] & Moist Neck Neck Exam: Neck Supple Pulmonary Resp Exam: No Distress, Rhonchi, Decreased Bases, Diminished Breath Sounds Cardiology CV Exam: Regular, Normal Sinus Rhythm Gastrointestinal/Abdomen GI Exam: Soft, Non-Tender, Bowel Sounds Present Extremeties Extremities Exam: Moderate Edema Neurologic Neuro Exam: Alert, Awake Psychiatric Psych Exam: Appropriate Responses Assessment/Plan Assessment Summary: WILLIE/Acute Renal Failure, CHF, CKD Stage IV Problem List: (1) NSTEMI (non-ST elevated myocardial infarction) ICD Codes: I21.4 - Non-ST elevation (NSTEMI) myocardial infarction Status: Resolved (2) Diabetes mellitus ICD Codes: E11.9 - Diabetes mellitus Status: Chronic (3) Asthma ICD Codes: J45.909 - Asthma Status: Chronic (4) Shortness of breath ICD Codes: R06.02 - Shortness of breath Status: Acute (5) Leg edema ICD Codes: R60.0 - Leg edema Status: Acute (6) Hypertension ICD Codes: I10 - Hypertension Status: Chronic (7) CKD (chronic kidney disease) stage 4, GFR 15-29 ml/min ICD Codes: N18.4 - Chronic kidney disease, stage 4 (severe) Status: Acute (8) ARF (acute renal failure) ICD Codes: N17.9 - ARF (acute renal failure) Status: Acute Plan Patient has last HD done yesterday. Creatinine is still elevated, and GFR is low. Will consider Renal Biopsy if not better. Has 6 gm of proteinuria. Serology is negative. Most likely has End stage renal disease. Possible Kidney Biopsy and PermCath. I tried to contact the family, no answer on both tel. listed. Will arrange for Kidney Biopsy in AM. Problem Qualifiers (1) Diabetes mellitus: (2) Hypertension: Qualified Codes: I10 - Essential (primary) hypertension (3) ARF (acute renal failure): Zoey Carbone MD Dec 26, 2016 16:30
[2016-12-26 18:16] LABS: AUTOMATED NEUTROPHIL # 2.7 TH/MM3 (1.8-7.7); BASOPHIL % 0.8 % (0.0-2.0); EOSINOPHIL # 0.2 TH/MM3 (0-0.4); EOSINOPHIL % 3.8 % (0.0-4.0); HEMATOCRIT 29.4 % (39.0-51.0); HEMO FLAGS DIFF FINAL; LYMPH % 18.7 % (9.0-44.0); LYMPHOCYTE # 0.8 TH/MM3 (1.0-4.8); MEAN CELL VOLUME 89.2 FL (80.0-100.0); MEAN CORPUSCULAR HEMOGLOBIN 28.8 PG (27.0-34.0); MEAN CORPUSCULAR HGB CONC 32.2 % (32.0-36.0); MONO % 16.4 % (0.0-8.0); NEUT % 60.3 % (16.0-70.0); PLATELET COUNT 166 TH/MM3 (150-450); RED BLOOD COUNT 3.29 MIL/MM3 (4.50-5.90); RED CELL DISTRIBUTION WIDTH 15.6 % (11.6-17.2); WHITE BLOOD COUNT 4.5 TH/MM3 (4.0-11.0)
[2016-12-26 18:25] LABS: APTT (PATIENT) 28.2 SEC (24.3-30.1); PROTHROMBIN TIME - PATIENT 11.2 SEC (9.8-11.6)
[2016-12-26 20:00] VITALS: BP 117/67; PULSE 65; PULSE 66; RESP 18; TEMP 98; O2SAT 95
[2016-12-26] MEDS: INSULIN DETEMIR 100 UNITS/ML VIAL SQ SCH (20:47)
[2016-12-27] VITALS (7 sets, daily range): BP systolic 135–160; BP diastolic 63–72; PULSE 59–68; RESP 16–20; TEMP 97.5–99.1; O2SAT 95–98
[2016-12-27] MEDS: CHLORHEXIDINE GLUCONATE 2 % 1 PACK (2 CLOTHS) TOP SCH (04:00)
[2016-12-27] MEDS: INSULIN NovoLIN REGULAR SUPPLEMENTAL SCALE SQ SCH ×4 (06:28→23:49)
[2016-12-27] MEDS: hydrALAZINE HCL 50 MG TAB PO SCH ×3 (06:28→22:04)
[2016-12-27] MEDS: CHLORHEXIDINE 0.12% (ORAL KIT) 15 ML CUP MT SCH ×2 (08:00→20:00)
[2016-12-27] MEDS: CALCIUM ACETATE 667 MG CAP PO SCH ×3 (08:06→17:35)
[2016-12-27] MEDS: ASPIRIN 81 MG CHEW TAB CHEW SCH (08:07)
[2016-12-27] MEDS: CARVEDILOL 6.25 MG TAB PO SCH ×2 (08:07→22:04)
[2016-12-27] MEDS: TAMSULOSIN HCL 0.4 MG CAP PO SCH (08:07)
[2016-12-27] MEDS: CALCITRIOL 0.25 MCG CAP PO SCH (08:07)
[2016-12-27] MEDS: cloNIDine HCL 0.3 MG TAB PO SCH ×4 (08:07→23:41)
[2016-12-27] MEDS: BUDESONIDE-FORMOTEROL 160/4.5 MCG INHALER INH SCH ×2 (08:08→22:02)
[2016-12-27] MEDS: TIOTROPIUM BROMIDE 18 MCG INH INH SCH (08:08)
[2016-12-27] MEDS: ARTIFICIAL TEARS OPTH SOLN 15 ML BTL EACH EYE SCH ×3 (08:08→17:36)
[2016-12-27] MEDS: SODIUM CHLORIDE 0.9% FLUSH 10 ML FLUSH IVF SCH (08:11)
[2016-12-27] MEDS: SODIUM CHLORIDE 0.9% FLUSH 10 ML FLUSH IV FLUSH SCH ×2 (08:11→22:03)
--- NOTE | 2016-12-27 10:17 | HHI.PR ---
Subjective Remarks Follow-up sepsis/LA thrombus/end-stage renal disease requiring hemodialysis 12/18/16-patient seen and examined, BP slightly up. Labile blood glucose. Patient denies any nausea or vomiting. No acute event overnight 12/19/16-patient seen and examined, had hemodialysis today and states he is tired 12/20/16-patient seen and examined; denies any chest pain or shortness of breath. Complains of urinary retention since Young was removed yesterday 12/21/16-patient seen and examined; he had HD today and denies any Shortness of breath 12/22/16-patient seen and examined, stable and no complaint today 12/23/16-patient seen and examined, has no complaint however Young with evidence of gross hematuria 12/24/16-patient seen and examined, still with gross hematuria. Denies any shortness of breath. Vitals stable 12/25/16-patient seen and examined; complains of abdominal pain and states he had no BM over the past few days. Still with gross hematuria 12/26/16-patient seen and examined, returned from dialysis center. Still complains of constipations otherwise stable. 12/27/16-Patient seen and examined; still complains of constipation , no complaint of shortness of breath. Gross hematuria resolved Objective Vitals Vital Signs Date Time Temp Pulse Resp B/P (MAP) Pulse Ox O2 Delivery O2 Flow Rate FiO2 12/27/16 08:50 64 12/27/16 08:50 Room Air 12/27/16 08:00 99.1 63 18 140/65 (90) 98 12/27/16 04:00 98.4 59 16 141/63 (89) 97 12/27/16 00:00 98.1 63 18 135/64 (87) 96 12/26/16 21:30 Room Air 12/26/16 20:00 98.0 66 18 117/67 (84) 95 12/26/16 20:00 65 12/26/16 16:00 96.0 67 18 114/57 (76) 98 12/26/16 12:35 98.7 71 20 148/70 (96) 97 I/O 12/26/16 12/26/16 12/26/16 12/27/16 12/27/16 12/27/16 07:00 15:00 23:00 07:00 15:00 23:00 Intake Total 240 ml 480 ml 710 ml Output Total 950 ml 3000 ml 350 ml 400 ml Balance -710 ml -3000 ml 130 ml 310 ml Intake Oral 240 ml 480 ml 710 ml Output Urine Total 950 ml 350 ml 400 ml Hemodialysis 3000 ml # Bowel Movements 2 0 0 Result Diagram: 12/26/16 1800 12/25/161941 Objective Remarks GENERAL: NAD SKIN: Warm and dry. HEAD: Normocephalic. EYES: No scleral icterus. No injection or drainage. NECK: Supple, trachea midline. No JVD or lymphadenopathy. CARDIOVASCULAR: Regular rate and rhythm without murmurs, gallops, or rubs. RESPIRATORY: Breath sounds equal bilaterally. No accessory muscle use. GASTROINTESTINAL: Abdomen soft, non-tender, nondistended. MUSCULOSKELETAL: No cyanosis; +1edema BLE. BACK: Nontender without obvious deformity. No CVA tenderness. A/P Problem List: (1) Respiratory failure ICD Code: J96.90 - Respiratory failure, unspecified, unspecified whether with hypoxia or hypercapnia Status: Acute (2) Sepsis ICD Code: A41.9 - Sepsis, unspecified organism Status: Acute (3) Pneumonia ICD Code: J18.9 - Pneumonia, unspecified organism Status: Acute (4) left atrial thrombus Status: Acute (5) NSTEMI (non-ST elevated myocardial infarction) ICD Code: I21.4 - Non-ST elevation (NSTEMI) myocardial infarction Status: Resolved (6) ARF (acute renal failure) ICD Code: N17.9 - ARF (acute renal failure) Status: Acute (7) Diabetes mellitus ICD Code: E11.9 - Diabetes mellitus Status: Chronic (8) Morbid obesity ICD Code: E66.01 - Morbid (severe) obesity due to excess calories Status: Acute (9) Severe chronic obstructive pulmonary disease ICD Code: J44.9 - Chronic obstructive pulmonary disease, unspecified Status: Acute (10) CKD (chronic kidney disease) stage 4, GFR 15-29 ml/min ICD Code: N18.4 - Chronic kidney disease, stage 4 (severe) Status: Acute Assessment and Plan 66-year-old man with Acute hypoxic respiratory failure-resolved COPD exacerbation-Resolved Bilateral lower lobe pneumonias/community acquired Bilateral small effusions Taper prednisone 20 mg daily --Status post completed antibiotic treatment while hospitalized. --Symbicort and Spiriva NSTEMI LA thrombus Severe sepsis-resolved Hypertensive urgency-resolved -- Currently on heparin drip bridging to Coumadin however due to gross hematuria , will continue to hold both heparin and Coumadin -- ASA 81 mg daily. Coreg 6.25 mg BID. Norvasc 10 mg daily. Clonidine to 0.3 mg po TID and hydralazine 100 mg by mouth daily 8 hour -- Cardiology -Dr Quadrat. Echo Mildly dilated left ventricle. LVEF 45-50%. Gross hematuria-Resolved Continue to Hold heparin and Coumadin New severe acute kidney injury Chronic kidney disease -- Nephrology started HD 12/12/16. Hemodialysis per nephrology. Had HD today -- Renal ultrasound-normal. Positive for proteinuria. --Patient will need permacath placement as well as renal biopsy possible this week if no improvement Community acquired bilateral lower lobe pneumonia Severe sepsis-Resolved Patient completed antibiotic therapy on 12/15/16. -- Received 2 units PRBC 12/08 transfusion for hemoglobin drop to 6.6 from 7.7. Type 2 diabetes-labile blood glucose -- Continue Levemir 20 units at bedtime and SSI Urinary retention/BPH --Continue Flomax 0.4 mg daily Constipation Stool softener Prophylaxis: GI Prophylaxis Protonix DVT Prophylaxis -- SCDs Problem Qualifiers (1) Sepsis: (2) Pneumonia: (3) ARF (acute renal failure): (4) Diabetes mellitus: Hernandez Gray MD Dec 27, 2016 10:17
--- NOTE | 2016-12-27 11:40 | HHI.NPPN ---
Subjective History of Present Illness 66-year-old male with past medical history of hypertension, diabetes mellitus, history of cerebrovascular accident with left-sided weakness, hyperlipidemia, bronchial asthma, chronic kidney disease who was admitted because of shortness of breath and chest pain. I was called to see the patient because of elevated BUN and creatinine. The patient was diagnosed here with non-ST elevation [place]. The patient has history of chronic kidney disease. Additional Remarks Patient is alert, no SOB, eating better, not in distress. Objective Data Data Vital Signs Date Time Temp Pulse Resp B/P (MAP) Pulse Ox O2 Delivery O2 Flow Rate FiO2 12/27/16 08:50 64 12/27/16 08:50 Room Air 12/27/16 08:00 99.1 63 18 140/65 (90) 98 12/27/16 04:00 98.4 59 16 141/63 (89) 97 12/27/16 00:00 98.1 63 18 135/64 (87) 96 12/26/16 21:30 Room Air 12/26/16 20:00 98.0 66 18 117/67 (84) 95 12/26/16 20:00 65 12/26/16 16:00 96.0 67 18 114/57 (76) 98 12/26/16 12:35 98.7 71 20 148/70 (96) 97 -: 12/26/16 1800 12/25/16 1942 Physical Exam General Appearance: No Acute Distress, Comfortable Eyes Eye Exam: Pupils Equal Throat Throat Exam: Oral Mucosa [place] & Moist Neck Neck Exam: Neck Supple Pulmonary Resp Exam: No Distress, Rhonchi, Decreased Bases, Diminished Breath Sounds Cardiology CV Exam: Regular, Normal Sinus Rhythm Gastrointestinal/Abdomen GI Exam: Soft, Non-Tender, Bowel Sounds Present Extremeties Extremities Exam: Moderate Edema Neurologic Neuro Exam: Alert, Awake Psychiatric Psych Exam: Appropriate Responses Assessment/Plan Assessment Summary: WILLIE/Acute Renal Failure, CHF, CKD Stage IV Problem List: (1) NSTEMI (non-ST elevated myocardial infarction) ICD Codes: I21.4 - Non-ST elevation (NSTEMI) myocardial infarction Status: Resolved (2) Diabetes mellitus ICD Codes: E11.9 - Diabetes mellitus Status: Chronic (3) Asthma ICD Codes: J45.909 - Asthma Status: Chronic (4) Shortness of breath ICD Codes: R06.02 - Shortness of breath Status: Acute (5) Leg edema ICD Codes: R60.0 - Leg edema Status: Acute (6) Hypertension ICD Codes: I10 - Hypertension Status: Chronic (7) CKD (chronic kidney disease) stage 4, GFR 15-29 ml/min ICD Codes: N18.4 - Chronic kidney disease, stage 4 (severe) Status: Acute (8) ARF (acute renal failure) ICD Codes: N17.9 - ARF (acute renal failure) Status: Acute Plan Creatinine is still elevated, and GFR is low. Will consider Renal Biopsy if not better. Has 6 gm of proteinuria. Serology is negative. Most likely has End stage renal disease. Possible Kidney Biopsy and PermCath. I tried to contact the family, no answer on both tel. listed. Kidney Biopsy was not done as he ate the Breakfast. I discussed in detail with the patient with the help of iron pellet tester about kidney disease, Biopsy and Dialysis. HD in AM, and also kidney Biopsy. Problem Qualifiers (1) Diabetes mellitus: (2) Hypertension: Qualified Codes: I10 - Essential (primary) hypertension (3) ARF (acute renal failure): Zoey Carbone MD Dec 27, 2016 11:40
--- NOTE | 2016-12-27 17:08 | PD.CARD.PN ---
Subjective Subjective Remarks No CP or SOB, no C/O Objective Vital Signs / I&O Vital Signs Date Time Temp Pulse Resp B/P (MAP) Pulse Ox O2 Delivery O2 Flow Rate FiO2 12/27/16 12:00 97.5 60 18 140/68 (92) 95 12/27/16 08:50 64 12/27/16 08:50 Room Air 12/27/16 08:00 99.1 63 18 140/65 (90) 98 12/27/16 04:00 98.4 59 16 141/63 (89) 97 12/27/16 00:00 98.1 63 18 135/64 (87) 96 12/26/16 21:30 Room Air 12/26/16 20:00 98.0 66 18 117/67 (84) 95 12/26/16 20:00 65 I/O 12/26/16 12/26/16 12/26/16 12/27/16 12/27/16 12/27/16 07:00 15:00 23:00 07:00 15:00 23:00 Intake Total 240 ml 480 ml 710 ml Output Total 950 ml 3000 ml 350 ml 400 ml Balance -710 ml -3000 ml 130 ml 310 ml Intake Oral 240 ml 480 ml 710 ml Output Urine Total 950 ml 350 ml 400 ml Hemodialysis 3000 ml # Bowel Movements 2 0 0 Physical Exam GENERAL: In NAD SKIN: Warm and dry. HEAD: Normocephalic. EYES: No scleral icterus. No injection or drainage. NECK: Supple, trachea midline. No JVD or lymphadenopathy. CARDIOVASCULAR: Regular rate and rhythm, mild tachycardia, no murmurs, gallops, or rubs. RESPIRATORY: Breath sounds equal bilaterally. No accessory muscle use. GASTROINTESTINAL: Abdomen soft, non-tender, nondistended. MUSCULOSKELETAL: No cyanosis, mild edema, dry, scaly skin Laboratory Laboratory Tests Test 12/26/16 18:00 White Blood Count 4.5 TH/MM3 Red Blood Count 3.29 MIL/MM3 Hemoglobin 9.5 GM/DL Hematocrit 29.4 % Mean Corpuscular Volume 89.2 FL Mean Corpuscular Hemoglobin 28.8 PG Mean Corpuscular Hemoglobin Concent 32.2 % Red Cell Distribution Width 15.6 % Platelet Count 166 TH/MM3 Mean Platelet Volume 8.5 FL Neutrophils (%) (Auto) 60.3 % Lymphocytes (%) (Auto) 18.7 % Monocytes (%) (Auto) 16.4 % Eosinophils (%) (Auto) 3.8 % Basophils (%) (Auto) 0.8 % Neutrophils # (Auto) 2.7 TH/MM3 Lymphocytes # (Auto) 0.8 TH/MM3 Monocytes # (Auto) 0.7 TH/MM3 Eosinophils # (Auto) 0.2 TH/MM3 Basophils # (Auto) 0.0 TH/MM3 CBC Comment DIFF FINAL Differential Comment Prothrombin Time 11.2 SEC Prothromb Time International Ratio 1.0 RATIO Activated Partial Thromboplast Time 28.2 SEC Assessment and Plan Problem List: (1) Respiratory failure ICD Codes: J96.90 - Respiratory failure, unspecified, unspecified whether with hypoxia or hypercapnia Status: Acute (2) Sepsis ICD Codes: A41.9 - Sepsis, unspecified organism Status: Acute (3) Pneumonia ICD Codes: J18.9 - Pneumonia, unspecified organism Status: Acute (4) ARF (acute renal failure) ICD Codes: N17.9 - ARF (acute renal failure) Status: Acute (5) Elevated troponin ICD Codes: R74.8 - Abnormal levels of other serum enzymes Status: Acute (6) Diabetes mellitus ICD Codes: E11.9 - Diabetes mellitus Status: Chronic (7) Hypertension ICD Codes: I10 - Hypertension Status: Chronic (8) Morbid obesity ICD Codes: E66.01 - Morbid (severe) obesity due to excess calories Status: Acute (9) Anemia ICD Codes: D64.9 - Anemia Status: Acute Assessment and Plan Continue dialysis. Adjust antihypertensives if necessary due to hypotension with dialysis. Continue aggressive risk factor modification. Increase activity, continue PT. Problem Qualifiers (1) Sepsis: (2) Pneumonia: (3) ARF (acute renal failure): (4) Diabetes mellitus: (5) Hypertension: Qualified Codes: I10 - Essential (primary) hypertension (6) Anemia: Mark Chapin MD Dec 27, 2016 17:08
[2016-12-27] MEDS: INSULIN DETEMIR 100 UNITS/ML VIAL SQ SCH (22:39)
[2016-12-28] VITALS (7 sets, daily range): BP systolic 136–167; BP diastolic 66–76; PULSE 62–74; RESP 18–20; TEMP 97.4–99.4; O2SAT 97–98
[2016-12-28] MEDS: CHLORHEXIDINE GLUCONATE 2 % 1 PACK (2 CLOTHS) TOP SCH (04:00)
[2016-12-28] MEDS: hydrALAZINE HCL 50 MG TAB PO SCH ×3 (06:15→21:26)
[2016-12-28] MEDS: INSULIN NovoLIN REGULAR SUPPLEMENTAL SCALE SQ SCH ×4 (06:20→22:42)
[2016-12-28] MEDS: CHLORHEXIDINE 0.12% (ORAL KIT) 15 ML CUP MT SCH ×2 (08:00→20:00)
[2016-12-28] MEDS: cloNIDine HCL 0.3 MG TAB PO SCH ×3 (08:00→23:14)
[2016-12-28] MEDS: ARTIFICIAL TEARS OPTH SOLN 15 ML BTL EACH EYE SCH ×3 (09:00→17:59)
[2016-12-28] MEDS: SODIUM CHLORIDE 0.9% FLUSH 10 ML FLUSH IVF SCH (09:00)
[2016-12-28] MEDS: CARVEDILOL 6.25 MG TAB PO SCH ×2 (09:00→21:26)
[2016-12-28] MEDS: CALCITRIOL 0.25 MCG CAP PO SCH (09:29)
[2016-12-28] MEDS: CALCIUM ACETATE 667 MG CAP PO SCH ×3 (09:29→17:57)
[2016-12-28] MEDS: SODIUM CHLORIDE 0.9% FLUSH 10 ML FLUSH IV FLUSH SCH ×2 (09:30→21:26)
[2016-12-28] MEDS: TAMSULOSIN HCL 0.4 MG CAP PO SCH (09:30)
[2016-12-28] MEDS: BUDESONIDE-FORMOTEROL 160/4.5 MCG INHALER INH SCH ×2 (09:30→21:25)
[2016-12-28] MEDS: ASPIRIN 81 MG CHEW TAB CHEW SCH (09:30)
[2016-12-28] MEDS: TIOTROPIUM BROMIDE 18 MCG INH INH SCH (09:31)
[2016-12-28] MEDS: RESP: ALBUTEROL 2.5 MG/3 ML NEB (PRN) NEB (11:40)
--- NOTE | 2016-12-28 11:55 | HHI.PR ---
Subjective Remarks Follow-up sepsis/LA thrombus/end-stage renal disease requiring hemodialysis 12/18/16-patient seen and examined, BP slightly up. Labile blood glucose. Patient denies any nausea or vomiting. No acute event overnight 12/19/16-patient seen and examined, had hemodialysis today and states he is tired 12/20/16-patient seen and examined; denies any chest pain or shortness of breath. Complains of urinary retention since Young was removed yesterday 12/21/16-patient seen and examined; he had HD today and denies any Shortness of breath 12/22/16-patient seen and examined, stable and no complaint today 12/23/16-patient seen and examined, has no complaint however Young with evidence of gross hematuria 12/24/16-patient seen and examined, still with gross hematuria. Denies any shortness of breath. Vitals stable 12/25/16-patient seen and examined; complains of abdominal pain and states he had no BM over the past few days. Still with gross hematuria 12/26/16-patient seen and examined, returned from dialysis center. Still complains of constipations otherwise stable. 12/27/16-Patient seen and examined; still complains of constipation , no complaint of shortness of breath. Gross hematuria resolved 12/28/16-patient seen and examined, no acute event overnight, this morning complaining of some shortness of breath. Will to perform CT-guided renal biopsy tomorrow due to upcoming holiday weekend Objective Vitals Vital Signs Date Time Temp Pulse Resp B/P (MAP) Pulse Ox O2 Delivery O2 Flow Rate FiO2 12/28/16 11:41 98 12/28/16 04:00 97.9 62 20 149/71 (97) 98 12/28/16 00:00 Room Air 12/28/16 00:00 97.4 64 20 136/66 (89) 98 12/27/16 20:00 97.7 68 20 160/72 (101) 97 12/27/16 20:00 67 12/27/16 20:00 Room Air 12/27/16 16:00 98.2 65 18 136/70 (92) 98 12/27/16 12:00 97.5 60 18 140/68 (92) 95 I/O 12/27/16 12/27/16 12/27/16 12/28/1631/17 8/31/17 07:00 15:00 23:00 07:00 15:00 23:00 Intake Total 710 ml 480 ml 200 ml Output Total 400 ml 625 ml 2800 ml Balance 310 ml -145 ml -2600 ml Intake Oral 710 ml 480 ml 200 ml Output Urine Total 400 ml 625 ml 2800 ml # Bowel Movements 0 0 Result Diagram: 12/26/16 1800 12/25/16 1942 Imaging Last Impressions Chest X-Ray 12/13/16 0600 Signed Impressions: Service Date/Time: Tuesday, December 13, 2016 04:54 - CONCLUSION: Persistent lobar consolidation left lower lung. Jose Roberto Cheema MD Chest CT 12/08/16 0000 Signed Impressions: Service Date/Time: Thursday, December 08, 2016 14:02 - CONCLUSION: 1. Bilateral lower lobe consolidating airspace disease. 2. Small to moderate bilateral pleural effusions; larger on the left. 3. Cardiomegaly. 4. Endotracheal and nasogastric tubes in good position. Tutu Christianson MD Renal Ultrasound 12/07/16 0000 Signed Impressions: Service Date/Time: November 07:54 - CONCLUSION: Unremarkable and stable bilateral renal ultrasound. No evidence of hydronephrosis. Baron Medrano MD Objective Remarks GENERAL: NAD SKIN: Warm and dry. HEAD: Normocephalic. EYES: No scleral icterus. No injection or drainage. NECK: Supple, trachea midline. No JVD or lymphadenopathy. CARDIOVASCULAR: Regular rate and rhythm without murmurs, gallops, or rubs. RESPIRATORY: Breath sounds equal bilaterally. No accessory muscle use. GASTROINTESTINAL: Abdomen soft, non-tender, nondistended. MUSCULOSKELETAL: No cyanosis; +1edema BLE. BACK: Nontender without obvious deformity. No CVA tenderness. A/P Problem List: (1) Respiratory failure ICD Code: J96.90 - Respiratory failure, unspecified, unspecified whether with hypoxia or hypercapnia Status: Acute (2) Sepsis ICD Code: A41.9 - Sepsis, unspecified organism Status: Acute (3) Pneumonia ICD Code: J18.9 - Pneumonia, unspecified organism Status: Acute (4) left atrial thrombus Status: Acute (5) NSTEMI (non-ST elevated myocardial infarction) ICD Code: I21.4 - Non-ST elevation (NSTEMI) myocardial infarction Status: Resolved (6) ARF (acute renal failure) ICD Code: N17.9 - ARF (acute renal failure) Status: Acute (7) Diabetes mellitus ICD Code: E11.9 - Diabetes mellitus Status: Chronic (8) Morbid obesity ICD Code: E66.01 - Morbid (severe) obesity due to excess calories Status: Acute (9) Severe chronic obstructive pulmonary disease ICD Code: J44.9 - Chronic obstructive pulmonary disease, unspecified Status: Acute (10) CKD (chronic kidney disease) stage 4, GFR 15-29 ml/min ICD Code: N18.4 - Chronic kidney disease, stage 4 (severe) Status: Acute Assessment and Plan 66-year-old man with Acute hypoxic respiratory failure-resolved COPD exacerbation-Resolved Bilateral lower lobe pneumonias/community acquired Bilateral small effusions Taper prednisone 20 mg daily --Status post completed antibiotic treatment while hospitalized. --Symbicort and Spiriva NSTEMI LA thrombus Severe sepsis-resolved Hypertensive urgency-resolved -- Currently on heparin drip bridging to Coumadin however due to gross hematuria , will continue to hold both heparin and Coumadin -- ASA 81 mg daily. Coreg 6.25 mg BID. Norvasc 10 mg daily. Clonidine to 0.3 mg po TID and hydralazine 100 mg by mouth daily 8 hour -- Cardiology - Quadrat. Echo Mildly dilated left ventricle. LVEF 45-50%. Gross hematuria-Resolved Continue to Hold heparin and Coumadin New severe acute kidney injury Chronic kidney disease -- Nephrology started HD 12/12/16. Hemodialysis per nephrology. -- Renal ultrasound-normal. Positive for proteinuria. --Plan for renal biopsy of right kidney next Week Community acquired bilateral lower lobe pneumonia Severe sepsis-Resolved Patient completed antibiotic therapy on 12/15/16. -- Received 2 units PRBC 12/08 transfusion for hemoglobin drop to 6.6 from 7.7. Type 2 diabetes-labile blood glucose -- Continue Levemir 20 units at bedtime and SSI Urinary retention/BPH --Continue Flomax 0.4 mg daily Constipation Stool softener Prophylaxis: GI Prophylaxis Protonix DVT Prophylaxis -- SCDs Problem Qualifiers (1) Sepsis: (2) Pneumonia: (3) ARF (acute renal failure): (4) Diabetes mellitus: Hernandez Gray MD Dec 28, 2016 11:55
--- NOTE | 2016-12-28 12:37 | HHI.NPPN ---
Subjective History of Present Illness 66-year-old male with past medical history of hypertension, diabetes mellitus, history of cerebrovascular accident with left-sided weakness, hyperlipidemia, bronchial asthma, chronic kidney disease who was admitted because of shortness of breath and chest pain. I was called to see the patient because of elevated BUN and creatinine. The patient was diagnosed here with non-ST elevation [place]. The patient has history of chronic kidney disease. Additional Remarks Patient is alert, sitting on chair, with nasal cannula, not in distress. Objective Data Data Vital Signs Date Time Temp Pulse Resp B/P (MAP) Pulse Ox O2 Delivery O2 Flow Rate FiO2 12/28/16 11:41 98 12/28/16 04:00 97.9 62 20 149/71 (97) 98 12/28/16 00:00 Room Air 12/28/16 00:00 97.4 64 20 136/66 (89) 98 12/27/16 20:00 97.7 68 20 160/72 (101) 97 12/27/16 20:00 67 12/27/16 20:00 Room Air 12/27/16 16:00 98.2 65 18 136/70 (92) 98 -: 12/26/16 1800 12/25/16 1942 Physical Exam General Appearance: No Acute Distress, Comfortable Eyes Eye Exam: Pupils Equal Throat Throat Exam: Oral Mucosa [place] & Moist Neck Neck Exam: Neck Supple Pulmonary Resp Exam: No Distress, Rhonchi, Decreased Bases, Diminished Breath Sounds Cardiology CV Exam: Regular, Normal Sinus Rhythm Gastrointestinal/Abdomen GI Exam: Soft, Non-Tender, Bowel Sounds Present Extremeties Extremities Exam: Moderate Edema Neurologic Neuro Exam: Alert, Awake Psychiatric Psych Exam: Appropriate Responses Assessment/Plan Assessment Summary: WILLIE/Acute Renal Failure, CHF, CKD Stage IV Problem List: (1) NSTEMI (non-ST elevated myocardial infarction) ICD Codes: I21.4 - Non-ST elevation (NSTEMI) myocardial infarction Status: Resolved (2) Diabetes mellitus ICD Codes: E11.9 - Diabetes mellitus Status: Chronic (3) Asthma ICD Codes: J45.909 - Asthma Status: Chronic (4) Shortness of breath ICD Codes: R06.02 - Shortness of breath Status: Acute (5) Leg edema ICD Codes: R60.0 - Leg edema Status: Acute (6) Hypertension ICD Codes: I10 - Hypertension Status: Chronic (7) CKD (chronic kidney disease) stage 4, GFR 15-29 ml/min ICD Codes: N18.4 - Chronic kidney disease, stage 4 (severe) Status: Acute (8) ARF (acute renal failure) ICD Codes: N17.9 - ARF (acute renal failure) Status: Acute Plan Patient has been non oliguric, Creatinine is still above 7. K is normal, Hco3 is normal now. Follow urine out put and BMP. May will need HD if no improvement. Has proteinuria, serology pending. Added Phoslo as Po4 is elevated and calcitriol as Calcium is low. BP is better. Follow urine out put and watch for any renal recovery. Renal Biopsy was cancelled again today. HD to continue as needed. Problem Qualifiers (1) Diabetes mellitus: (2) Hypertension: Qualified Codes: I10 - Essential (primary) hypertension (3) ARF (acute renal failure): Zoey Carbone MD Dec 28, 2016 12:37
--- NOTE | 2016-12-28 13:26 | PD.CARD.PN ---
Subjective Subjective Remarks No CP or SOB, eating breakfast Objective Medications Active Medications Albuterol/ Ipratropium (Duoneb Neb) 1 ampule Q6HR WHILE AWAKE NEB NEB; Start at 14:00; Status UNV Vital Signs / I&O Vital Signs Date Time Temp Pulse Resp B/P (MAP) Pulse Ox O2 Delivery O2 Flow Rate FiO2 12/28/16 11:41 98 12/28/16 04:00 97.9 62 20 149/71 (97) 98 12/28/16 00:00 Room Air 12/28/16 00:00 97.4 64 20 136/66 (89) 98 12/27/16 20:00 97.7 68 20 160/72 (101) 97 12/27/16 20:00 67 12/27/16 20:00 Room Air 12/27/16 16:00 98.2 65 18 136/70 (92) 98 I/O 12/27/16 12/27/16 12/27/16 12/28/16 12/28/16 12/28/16 06:59 14:59 22:59 06:59 14:59 22:59 Intake Total 710 ml 480 ml 200 ml Output Total 400 ml 625 ml 2800 ml Balance 310 ml -145 ml -2600 ml Intake Oral 710 ml 480 ml 200 ml Output Urine Total 400 ml 625 ml 2800 ml # Bowel Movements 0 0 Physical Exam GENERAL: In NAD SKIN: Warm and dry. HEAD: Normocephalic. EYES: No scleral icterus. No injection or drainage. NECK: Supple, trachea midline. No JVD or lymphadenopathy. CARDIOVASCULAR: Regular rate and rhythm, mild tachycardia, no murmurs, gallops, or rubs. RESPIRATORY: Breath sounds equal bilaterally. No accessory muscle use. GASTROINTESTINAL: Abdomen soft, non-tender, nondistended. MUSCULOSKELETAL: No cyanosis, mild edema, dry, scaly skin Laboratory Date/Time Source Procedure Growth Status 12/06/16 23:25 Blood Peripheral Aerobic Blood Culture - Final NO GROWTH IN 5 DAYS Complete 12/06/16 23:25 Blood Peripheral Anaerobic Blood Culture - Final NO GROWTH IN 5 DAYS Complete 12/07/16 17:40 Sputum Endotracheal Gram Stain - Final Complete 12/07/16 17:40 Sputum Endotracheal Sputum Culture - Final MODERATE GROWTH NORMAL RESPIRATORY SARAH Complete 12/07/16 17:30 Urine Catheterized Urine Legionella Antigen - Final PRESUMPTIVE NEGATIVE FOR LEGIONELLA P... Complete 12/07/16 17:30 Urine Catheterized Urine Streptococcus pneumoniae Antigen (M - Final PRESUMPTIVE NEGATIVE FOR STREPTOCOCCU... Complete Assessment and Plan Problem List: (1) Respiratory failure ICD Codes: J96.90 - Respiratory failure, unspecified, unspecified whether with hypoxia or hypercapnia Status: Acute (2) Sepsis ICD Codes: A41.9 - Sepsis, unspecified organism Status: Acute (3) Pneumonia ICD Codes: J18.9 - Pneumonia, unspecified organism Status: Acute (4) ARF (acute renal failure) ICD Codes: N17.9 - ARF (acute renal failure) Status: Acute (5) Elevated troponin ICD Codes: R74.8 - Abnormal levels of other serum enzymes Status: Acute (6) Diabetes mellitus ICD Codes: E11.9 - Diabetes mellitus Status: Chronic (7) Hypertension ICD Codes: I10 - Hypertension Status: Chronic (8) Morbid obesity ICD Codes: E66.01 - Morbid (severe) obesity due to excess calories Status: Acute (9) Anemia ICD Codes: D64.9 - Anemia Status: Acute Assessment and Plan No new cardiac issues. Continue dialysis, well tolerated. Adjust antihypertensives if necessary due to hypotension with dialysis. Continue aggressive risk factor modification. Increase activity, continue PT. Problem Qualifiers (1) Sepsis: (2) Pneumonia: (3) ARF (acute renal failure): (4) Diabetes mellitus: (5) Hypertension: Qualified Codes: I10 - Essential (primary) hypertension (6) Anemia: Mark Chapin MD Dec 28, 2016 13:26
[2016-12-28] MEDS: RESP: ALBUTEROL 2.5 MG/IPRATROPIUM 0.5 MG NEB (SCH) NEB ×2 (14:00→18:09)
[2016-12-28] MEDS: HEPARIN SODIUM - IV 10,000 UNITS/10 ML VIAL PRN (16:17)
[2016-12-28] MEDS: SODIUM CHLOR 0.9% 1000 ML INJ 1,000 ML IV PRN (16:18)
[2016-12-28] MEDS: EPOETIN ALFA 10,000 UNITS/ML VIAL IV PRN (16:18)
[2016-12-28] MEDS: GENTAMICIN SULFATE (DIALYSIS USE ONLY) 20 MG/2 ML VIAL IV PRN (16:18)
[2016-12-28] MEDS: INSULIN DETEMIR 100 UNITS/ML VIAL SQ SCH (21:24)
[2016-12-28] MEDS: ACETAMINOPHEN 325 MG TAB PO PRN (22:10)
[2016-12-29] VITALS: BP 136/66; PULSE 74; RESP 20; TEMP 99.2; O2SAT 96
[2016-12-29] MEDS: CHLORHEXIDINE GLUCONATE 2 % 1 PACK (2 CLOTHS) TOP SCH (03:45)
[2016-12-29 04:00] VITALS: BP 144/66; PULSE 69; RESP 18; TEMP 99.1; O2SAT 98
[2016-12-29] MEDS: INSULIN NovoLIN REGULAR SUPPLEMENTAL SCALE SQ SCH ×3 (04:58→15:49)
[2016-12-29] MEDS: hydrALAZINE HCL 50 MG TAB PO SCH ×3 (05:03→22:27)
[2016-12-29 08:00] VITALS: BP 169/72; PULSE 73; RESP 20; TEMP 98.5; O2SAT 96
[2016-12-29] MEDS: CHLORHEXIDINE 0.12% (ORAL KIT) 15 ML CUP MT SCH ×2 (08:00→19:30)
[2016-12-29] MEDS: RESP: ALBUTEROL 2.5 MG/IPRATROPIUM 0.5 MG NEB (SCH) NEB ×3 (08:06→19:51)
[2016-12-29 08:08] VITALS: O2SAT 97
[2016-12-29] MEDS: SODIUM CHLORIDE 0.9% FLUSH 10 ML FLUSH IVF SCH (09:00)
[2016-12-29] MEDS: CALCITRIOL 0.25 MCG CAP PO SCH (09:00)
[2016-12-29] MEDS: ARTIFICIAL TEARS OPTH SOLN 15 ML BTL EACH EYE SCH ×3 (09:00→17:19)
[2016-12-29] MEDS: cloNIDine HCL 0.3 MG TAB PO SCH ×2 (09:00→15:46)
[2016-12-29] MEDS: CALCIUM ACETATE 667 MG CAP PO SCH ×3 (09:00→17:19)
[2016-12-29] MEDS: TAMSULOSIN HCL 0.4 MG CAP PO SCH (09:00)
[2016-12-29] MEDS: CARVEDILOL 6.25 MG TAB PO SCH ×2 (09:01→22:27)
[2016-12-29] MEDS: SENNOSIDES 8.6 MG TAB PO PRN (09:01)
[2016-12-29] MEDS: ASPIRIN 81 MG CHEW TAB CHEW SCH (09:01)
[2016-12-29] MEDS: SODIUM CHLORIDE 0.9% FLUSH 10 ML FLUSH IV FLUSH SCH ×2 (09:02→22:26)
[2016-12-29] MEDS: TIOTROPIUM BROMIDE 18 MCG INH INH SCH (09:02)
[2016-12-29] MEDS: BUDESONIDE-FORMOTEROL 160/4.5 MCG INHALER INH SCH ×2 (09:02→22:26)
--- NOTE | 2016-12-29 09:54 | HHI.PR ---
Subjective Remarks Follow-up sepsis/LA thrombus/end-stage renal disease requiring hemodialysis 12/18/16-patient seen and examined, BP slightly up. Labile blood glucose. Patient denies any nausea or vomiting. No acute event overnight 12/19/16-patient seen and examined, had hemodialysis today and states he is tired 12/20/16-patient seen and examined; denies any chest pain or shortness of breath. Complains of urinary retention since Young was removed yesterday 12/21/16-patient seen and examined; he had HD today and denies any Shortness of breath 12/22/16-patient seen and examined, stable and no complaint today 12/23/16-patient seen and examined, has no complaint however Young with evidence of gross hematuria 12/24/16-patient seen and examined, still with gross hematuria. Denies any shortness of breath. Vitals stable 12/25/16-patient seen and examined; complains of abdominal pain and states he had no BM over the past few days. Still with gross hematuria 12/26/16-patient seen and examined, returned from dialysis center. Still complains of constipations otherwise stable. 12/27/16-Patient seen and examined; still complains of constipation , no complaint of shortness of breath. Gross hematuria resolved 12/28/16-patient seen and examined, no acute event overnight, this morning complaining of some shortness of breath. Will to perform CT-guided renal biopsy tomorrow due to upcoming holiday weekend 12/29/16-patient seen and examined, stable, positive for bowel movement, afebrile. Gross hematuria resolved Objective Vitals Vital Signs Date Time Temp Pulse Resp B/P (MAP) Pulse Ox O2 Delivery O2 Flow Rate FiO2 12/29/16 08:08 97 21 12/29/16 08:00 98.5 73 20 169/72 (104) 96 12/29/16 04:00 Room Air 12/29/16 04:00 99.1 69 18 144/66 (92) 98 12/29/16 00:00 99.2 74 20 136/66 (89) 96 12/29/16 00:00 Room Air 12/28/16 20:10 74 12/28/16 20:00 99.4 69 18 148/68 (94) 97 12/28/16 20:00 Room Air 12/28/16 12:00 98.3 66 18 167/76 (106) 97 12/28/16 11:41 98 I/O 12/28/16 12/28/16 12/28/16 12/29/16 12/29/16 12/29/16 06:59 14:59 22:59 06:59 14:59 22:59 Intake Total 200 ml 840 ml 480 ml Output Total 2800 ml 2100 ml 350 ml Balance -2600 ml -1260 ml 130 ml Intake Oral 200 ml 840 ml 480 ml Output Urine Total 2800 ml 100 ml 350 ml Hemodialysis 2000 ml # Bowel Movements 1 0 Result Diagram: 12/26/16 1800 12/25/161941 Objective Remarks GENERAL: NAD SKIN: Warm and dry. HEAD: Normocephalic. EYES: No scleral icterus. No injection or drainage. NECK: Supple, trachea midline. No JVD or lymphadenopathy. CARDIOVASCULAR: Regular rate and rhythm without murmurs, gallops, or rubs. RESPIRATORY: Breath sounds equal bilaterally. No accessory muscle use. GASTROINTESTINAL: Abdomen soft, non-tender, nondistended. MUSCULOSKELETAL: No cyanosis; +1edema BLE. BACK: Nontender without obvious deformity. No CVA tenderness. A/P Problem List: (1) Respiratory failure ICD Code: J96.90 - Respiratory failure, unspecified, unspecified whether with hypoxia or hypercapnia Status: Acute (2) Sepsis ICD Code: A41.9 - Sepsis, unspecified organism Status: Acute (3) Pneumonia ICD Code: J18.9 - Pneumonia, unspecified organism Status: Acute (4) left atrial thrombus Status: Acute (5) NSTEMI (non-ST elevated myocardial infarction) ICD Code: I21.4 - Non-ST elevation (NSTEMI) myocardial infarction Status: Resolved (6) ARF (acute renal failure) ICD Code: N17.9 - ARF (acute renal failure) Status: Acute (7) Diabetes mellitus ICD Code: E11.9 - Diabetes mellitus Status: Chronic (8) Morbid obesity ICD Code: E66.01 - Morbid (severe) obesity due to excess calories Status: Acute (9) Severe chronic obstructive pulmonary disease ICD Code: J44.9 - Chronic obstructive pulmonary disease, unspecified Status: Acute (10) CKD (chronic kidney disease) stage 4, GFR 15-29 ml/min ICD Code: N18.4 - Chronic kidney disease, stage 4 (severe) Status: Acute Assessment and Plan 66-year-old man with Acute hypoxic respiratory failure-resolved COPD exacerbation-Resolved Bilateral lower lobe pneumonias/community acquired Bilateral small effusions Taper prednisone 20 mg daily --Status post completed antibiotic treatment while hospitalized. --Symbicort and Spiriva NSTEMI LA thrombus Severe sepsis-resolved Hypertensive urgency-resolved -- heparin drip bridging to Coumadin were held secondary to gross hematuria, however now resolved have cardiology restarts medications if indicated -- ASA 81 mg daily. Coreg 6.25 mg BID. Norvasc 10 mg daily. Clonidine to 0.3 mg po TID and hydralazine 100 mg by mouth daily 8 hour -- Cardiology -Dr Quadrat. Echo Mildly dilated left ventricle. LVEF 45-50%. Gross hematuria-Resolved New severe acute kidney injury Chronic kidney disease -- Nephrology started HD 12/12/16. Hemodialysis per nephrology. -- Renal ultrasound-normal. Positive for proteinuria. --Plan for renal biopsy of right kidney next Week Community acquired bilateral lower lobe pneumonia Severe sepsis-Resolved Patient completed antibiotic therapy on 12/15/16. -- Received 2 units PRBC 12/08 transfusion for hemoglobin drop to 6.6 from 7.7. Type 2 diabetes-labile blood glucose -- Continue Levemir 20 units at bedtime and SSI Urinary retention/BPH --Continue Flomax 0.4 mg daily Constipation Resolved and continue Stool softener Prophylaxis: GI Prophylaxis Protonix DVT Prophylaxis -- SCDs Discharge Planning Discharge when medically clear by nephrology, cardiology Problem Qualifiers (1) Sepsis: (2) Pneumonia: (3) ARF (acute renal failure): (4) Diabetes mellitus: Hernandez Gray MD Dec 29, 2016 09:54
[2016-12-29 12:00] VITALS: BP 138/77; PULSE 84; RESP 18; TEMP 97.7; O2SAT 100
--- NOTE | 2016-12-29 12:35 | HHI.NPPN ---
Subjective History of Present Illness 66-year-old male with past medical history of hypertension, diabetes mellitus, history of cerebrovascular accident with left-sided weakness, hyperlipidemia, bronchial asthma, chronic kidney disease who was admitted because of shortness of breath and chest pain. I was called to see the patient because of elevated BUN and creatinine. The patient was diagnosed here with non-ST elevation [place]. The patient has history of chronic kidney disease. Additional Remarks Patient is alert, no SOB, with nasal cannula. Objective Data Data Vital Signs Date Time Temp Pulse Resp B/P (MAP) Pulse Ox O2 Delivery O2 Flow Rate FiO2 12/29/16 12:00 97.7 84 18 138/77 (97) 100 12/29/16 08:08 97 21 12/29/16 08:00 98.5 73 20 169/72 (104) 96 12/29/16 04:00 Room Air 12/29/16 04:00 99.1 69 18 144/66 (92) 98 12/29/16 00:00 99.2 74 20 136/66 (89) 96 12/29/16 00:00 Room Air 12/28/16 20:10 74 12/28/16 20:00 99.4 69 18 148/68 (94) 97 12/28/16 20:00 Room Air -: 12/26/16 1800 12/25/16 194 Physical Exam General Appearance: No Acute Distress, Comfortable Eyes Eye Exam: Pupils Equal Throat Throat Exam: Oral Mucosa [place] & Moist Neck Neck Exam: Neck Supple Pulmonary Resp Exam: No Distress, Rhonchi, Decreased Bases, Diminished Breath Sounds Cardiology CV Exam: Regular, Normal Sinus Rhythm Gastrointestinal/Abdomen GI Exam: Soft, Non-Tender, Bowel Sounds Present Extremeties Extremities Exam: Moderate Edema Neurologic Neuro Exam: Alert, Awake Psychiatric Psych Exam: Appropriate Responses Assessment/Plan Assessment Summary: WILLIE/Acute Renal Failure, CHF, CKD Stage IV Problem List: (1) NSTEMI (non-ST elevated myocardial infarction) ICD Codes: I21.4 - Non-ST elevation (NSTEMI) myocardial infarction Status: Resolved (2) Diabetes mellitus ICD Codes: E11.9 - Diabetes mellitus Status: Chronic (3) Asthma ICD Codes: J45.909 - Asthma Status: Chronic (4) Shortness of breath ICD Codes: R06.02 - Shortness of breath Status: Acute (5) Leg edema ICD Codes: R60.0 - Leg edema Status: Acute (6) Hypertension ICD Codes: I10 - Hypertension Status: Chronic (7) CKD (chronic kidney disease) stage 4, GFR 15-29 ml/min ICD Codes: N18.4 - Chronic kidney disease, stage 4 (severe) Status: Acute (8) ARF (acute renal failure) ICD Codes: N17.9 - ARF (acute renal failure) Status: Acute Plan Patient has been non oliguric, Creatinine is still elevated. K is normal, Hco3 is normal now. Follow urine out put and BMP. Has proteinuria, serology pending. Added Phoslo as Po4 is elevated and calcitriol as Calcium is low. BP is better. Follow urine out put and watch for any renal recovery. Renal Biopsy will be done next week. HD as schedule. Problem Qualifiers (1) Diabetes mellitus: (2) Hypertension: Qualified Codes: I10 - Essential (primary) hypertension (3) ARF (acute renal failure): Zoey Carbone MD Dec 29, 2016 12:35
--- NOTE | 2016-12-29 13:11 | PD.CARD.PN ---
Subjective Subjective Remarks No CP or SOB, no c/o Objective Medications Active Medications Albuterol/ Ipratropium (Duoneb Neb) 1 ampule Q6HR WHILE AWAKE NEB NEB Last administered on 12/29/16t 08:06; Admin Dose 1 AMPULE; Start 12/28/16 at 14:00 Vital Signs / I&O Vital Signs Date Time Temp Pulse Resp B/P (MAP) Pulse Ox O2 Delivery O2 Flow Rate FiO2 12/29/16 12:00 97.7 84 18 138/77 (97) 100 12/29/16 08:08 97 21 12/29/16 08:00 98.5 73 20 169/72 (104) 96 12/29/16 04:00 Room Air 12/29/16 04:00 99.1 69 18 144/66 (92) 98 12/29/16 00:00 99.2 74 20 136/66 (89) 96 12/29/16 00:00 Room Air 12/28/16 20:10 74 12/28/16 20:00 99.4 69 18 148/68 (94) 97 12/28/16 20:00 Room Air I/O 12/28/16 12/28/16 12/28/16 12/29/16 12/29/16 12/29/16 07:00 15:00 23:00 07:00 15:00 23:00 Intake Total 200 ml 840 ml 480 ml Output Total 2800 ml 2100 ml 350 ml Balance -2600 ml -1260 ml 130 ml Intake Oral 200 ml 840 ml 480 ml Output Urine Total 2800 ml 100 ml 350 ml Hemodialysis 2000 ml # Bowel Movements 1 0 Physical Exam GENERAL: In NAD SKIN: Warm and dry. HEAD: Normocephalic. EYES: No scleral icterus. No injection or drainage. NECK: Supple, trachea midline. No JVD or lymphadenopathy. CARDIOVASCULAR: Regular rate and rhythm, mild tachycardia, no murmurs, gallops, or rubs. RESPIRATORY: Breath sounds equal bilaterally. No accessory muscle use. GASTROINTESTINAL: Abdomen soft, non-tender, nondistended. MUSCULOSKELETAL: No cyanosis, mild edema, dry, scaly skin Laboratory Date/Time Source Procedure Growth Status 12/06/16 23:25 Blood Peripheral Aerobic Blood Culture - Final NO GROWTH IN 5 DAYS Complete 12/06/16 23:25 Blood Peripheral Anaerobic Blood Culture - Final NO GROWTH IN 5 DAYS Complete 12/07/16 17:40 Sputum Endotracheal Gram Stain - Final Complete 12/07/16 17:40 Sputum Endotracheal Sputum Culture - Final MODERATE GROWTH NORMAL RESPIRATORY SARAH Complete 12/07/16 17:30 Urine Catheterized Urine Legionella Antigen - Final PRESUMPTIVE NEGATIVE FOR LEGIONELLA P... Complete 12/07/16 17:30 Urine Catheterized Urine Streptococcus pneumoniae Antigen (M - Final PRESUMPTIVE NEGATIVE FOR STREPTOCOCCU... Complete Assessment and Plan Problem List: (1) Respiratory failure ICD Codes: J96.90 - Respiratory failure, unspecified, unspecified whether with hypoxia or hypercapnia Status: Acute (2) Sepsis ICD Codes: A41.9 - Sepsis, unspecified organism Status: Acute (3) Pneumonia ICD Codes: J18.9 - Pneumonia, unspecified organism Status: Acute (4) ARF (acute renal failure) ICD Codes: N17.9 - ARF (acute renal failure) Status: Acute (5) Elevated troponin ICD Codes: R74.8 - Abnormal levels of other serum enzymes Status: Acute (6) Diabetes mellitus ICD Codes: E11.9 - Diabetes mellitus Status: Chronic (7) Hypertension ICD Codes: I10 - Hypertension Status: Chronic (8) Morbid obesity ICD Codes: E66.01 - Morbid (severe) obesity due to excess calories Status: Acute (9) Anemia ICD Codes: D64.9 - Anemia Status: Acute Assessment and Plan Remains stable from cardiac standpoint. No new cardiac issues. Continue dialysis , well tolerated. Adjust antihypertensives if necessary if hypotensive with dialysis. Continue aggressive risk factor modification. Increase activity, continue PT. Problem Qualifiers (1) Sepsis: (2) Pneumonia: (3) ARF (acute renal failure): (4) Diabetes mellitus: (5) Hypertension: Qualified Codes: I10 - Essential (primary) hypertension (6) Anemia: Mark Chapin MD Dec 29, 2016 13:11
[2016-12-29] MEDS ORDERED: INSULIN HUMAN NPH 1,000 UNITS/10 ML VIAL SQ ONE (17:15)
[2016-12-29 20:00] VITALS: BP 141/73; PULSE 60; RESP 22; TEMP 98.3; O2SAT 98
[2016-12-29] MEDS: INSULIN DETEMIR 100 UNITS/ML VIAL SQ SCH (22:28)
[2016-12-30] VITALS (7 sets, daily range): BP systolic 129–165; BP diastolic 66–75; PULSE 59–84; RESP 18–22; TEMP 98.3–98.7; O2SAT 95–100
[2016-12-30] MEDS: cloNIDine HCL 0.3 MG TAB PO SCH ×3 (00:15→18:14)
[2016-12-30] MEDS: INSULIN NovoLIN REGULAR SUPPLEMENTAL SCALE SQ SCH ×4 (00:16→18:16)
[2016-12-30] MEDS: CHLORHEXIDINE GLUCONATE 2 % 1 PACK (2 CLOTHS) TOP SCH (04:00)
[2016-12-30] MEDS: hydrALAZINE HCL 50 MG TAB PO SCH ×3 (05:22→21:45)
[2016-12-30] MEDS: RESP: ALBUTEROL 2.5 MG/IPRATROPIUM 0.5 MG NEB (SCH) NEB ×3 (07:56→20:51)
[2016-12-30] MEDS: CHLORHEXIDINE 0.12% (ORAL KIT) 15 ML CUP MT SCH ×2 (08:00→21:45)
[2016-12-30 08:41] LABS: AUTOMATED NEUTROPHIL # 1.9 TH/MM3 (1.8-7.7); BASOPHIL % 1.1 % (0.0-2.0); EOSINOPHIL # 0.3 TH/MM3 (0-0.4); EOSINOPHIL % 7.8 % (0.0-4.0); HEMATOCRIT 29.1 % (39.0-51.0); HEMO FLAGS DIFF FINAL; LYMPHOCYTE # 1.2 TH/MM3 (1.0-4.8); MEAN CELL VOLUME 89.1 FL (80.0-100.0); MEAN CORPUSCULAR HEMOGLOBIN 29.5 PG (27.0-34.0); MEAN CORPUSCULAR HGB CONC 33.1 % (32.0-36.0); MONO % 15.7 % (0.0-8.0); NEUT % 46.4 % (16.0-70.0); PLATELET COUNT 197 TH/MM3 (150-450); RED BLOOD COUNT 3.26 MIL/MM3 (4.50-5.90); RED CELL DISTRIBUTION WIDTH 16.1 % (11.6-17.2); WHITE BLOOD COUNT 4.2 TH/MM3 (4.0-11.0)
[2016-12-30] MEDS: SODIUM CHLORIDE 0.9% FLUSH 10 ML FLUSH IVF SCH (09:00)
[2016-12-30] MEDS: SODIUM CHLORIDE 0.9% FLUSH 10 ML FLUSH IV FLUSH SCH ×2 (09:00→21:44)
[2016-12-30] MEDS: CALCIUM ACETATE 667 MG CAP PO SCH ×3 (09:00→18:14)
[2016-12-30 09:09] LABS: BICARBONATE 28.5 MEQ/L (21.0-32.0)
--- NOTE | 2016-12-30 09:39 | HHI.NPPN ---
Subjective History of Present Illness 66-year-old male with past medical history of hypertension, diabetes mellitus, history of cerebrovascular accident with left-sided weakness, hyperlipidemia, bronchial asthma, chronic kidney disease who was admitted because of shortness of breath and chest pain. I was called to see the patient because of elevated BUN and creatinine. The patient was diagnosed here with non-ST elevation [place]. The patient has history of chronic kidney disease. Additional Remarks Patient is alert, now on HD, has mild SOB, on room air. Objective Data Data Vital Signs Date Time Temp Pulse Resp B/P (MAP) Pulse Ox O2 Delivery O2 Flow Rate FiO2 12/30/16 04:00 98.4 59 18 140/68 (92) 95 12/30/16 00:00 98.7 63 20 144/71 (95) 96 12/29/16 20:30 Room Air 12/29/16 20:00 98.3 60 22 141/73 (95) 98 12/29/16 12:00 97.7 84 18 138/77 (97) 100 -: 12/30/16 0748 12/30/16 0748 Physical Exam General Appearance: No Acute Distress, Comfortable Eyes Eye Exam: Pupils Equal Throat Throat Exam: Oral Mucosa [place] & Moist Neck Neck Exam: Neck Supple Pulmonary Resp Exam: No Distress, Rhonchi, Decreased Bases, Diminished Breath Sounds Cardiology CV Exam: Regular, Normal Sinus Rhythm Gastrointestinal/Abdomen GI Exam: Soft, Non-Tender, Bowel Sounds Present Extremeties Extremities Exam: Moderate Edema Neurologic Neuro Exam: Alert, Awake Psychiatric Psych Exam: Appropriate Responses Assessment/Plan Assessment Summary: WILLIE/Acute Renal Failure, CHF, CKD Stage IV Problem List: (1) NSTEMI (non-ST elevated myocardial infarction) ICD Codes: I21.4 - Non-ST elevation (NSTEMI) myocardial infarction Status: Resolved (2) Diabetes mellitus ICD Codes: E11.9 - Diabetes mellitus Status: Chronic (3) Asthma ICD Codes: J45.909 - Asthma Status: Chronic (4) Shortness of breath ICD Codes: R06.02 - Shortness of breath Status: Acute (5) Leg edema ICD Codes: R60.0 - Leg edema Status: Acute (6) Hypertension ICD Codes: I10 - Hypertension Status: Chronic (7) CKD (chronic kidney disease) stage 4, GFR 15-29 ml/min ICD Codes: N18.4 - Chronic kidney disease, stage 4 (severe) Status: Acute (8) ARF (acute renal failure) ICD Codes: N17.9 - ARF (acute renal failure) Status: Acute Plan Patient has been non oliguric, Creatinine is still elevated. K is normal, Follow urine out put and BMP. Has proteinuria, serology pending. Added Phoslo as Po4 is elevated and calcitriol as Calcium is low. BP is better. Follow urine out put and watch for any renal recovery. Renal Biopsy will be done next week. HD now remove fluid as tolerated. Pulse Ox. is 97% on RA. Problem Qualifiers (1) Diabetes mellitus: (2) Hypertension: Qualified Codes: I10 - Essential (primary) hypertension (3) ARF (acute renal failure): Zoey Carbone MD Dec 30, 2016 09:39
--- NOTE | 2016-12-30 11:31 | HHI.PR ---
Subjective Remarks Patient seen and examined this morning. Vitals are stable and the patient's afebrile. No overnight events. Denies CP or SOB. Just came from dialysis. Asking for water. Objective Vital Signs Date Time Temp Pulse Resp B/P (MAP) Pulse Ox O2 Delivery O2 Flow Rate FiO2 12/30/16 04:00 98.4 59 18 140/68 (92) 95 12/30/16 00:00 98.7 63 20 144/71 (95) 96 12/29/16 20:30 Room Air 12/29/16 20:00 98.3 60 22 141/73 (95) 98 12/29/16 12:00 97.7 84 18 138/77 (97) 100 I/O 12/29/16 12/29/16 12/29/16 12/30/16 12/30/16 12/30/16 07:00 15:00 23:00 07:00 15:00 23:00 Intake Total 480 ml 480 ml 480 ml Output Total 350 ml 375 ml 350 ml Balance 130 ml 105 ml 130 ml Intake Oral 480 ml 480 ml 480 ml Output Urine Total 350 ml 375 ml 350 ml Result Diagram: 12/30/16 0748 12/30/16 0748 Imaging Last Impressions Chest X-Ray 12/13/16 0600 Signed Impressions: Service Date/Time: Tuesday, December 13, 2016 04:54 - CONCLUSION: Persistent lobar consolidation left lower lung. Jose Roberto Cheema MD Chest CT 12/08/16 0000 Signed Impressions: Service Date/Time: Thursday, December 08, 2016 14:02 - CONCLUSION: 1. Bilateral lower lobe consolidating airspace disease. 2. Small to moderate bilateral pleural effusions; larger on the left. 3. Cardiomegaly. 4. Endotracheal and nasogastric tubes in good position. Tutu Christianson MD Renal Ultrasound 12/07/16 0000 Signed Impressions: Service Date/Time: November 07:54 - CONCLUSION: Unremarkable and stable bilateral renal ultrasound. No evidence of hydronephrosis. Baron Medrano MD Objective Remarks GENERAL: laying in bed, nad SKIN: Warm and dry. HEAD: Normocephalic. EYES: No scleral icterus. No injection or drainage. NECK: Supple, trachea midline. No JVD or lymphadenopathy. CARDIOVASCULAR: Regular rate and rhythm without murmurs, gallops, or rubs. Right IJ. RESPIRATORY: Breath sounds equal bilaterally. No accessory muscle use. GASTROINTESTINAL: Abdomen soft, non-tender, nondistended. MUSCULOSKELETAL: bilat SCDs LE BACK: Nontender without obvious deformity. A/P Problem List: (1) Diabetes mellitus ICD Code: E11.9 - Diabetes mellitus Status: Chronic (2) NSTEMI (non-ST elevated myocardial infarction) ICD Code: I21.4 - Non-ST elevation (NSTEMI) myocardial infarction Status: Resolved (3) CKD (chronic kidney disease) stage 4, GFR 15-29 ml/min ICD Code: N18.4 - Chronic kidney disease, stage 4 (severe) Status: Acute (4) left atrial thrombus Status: Acute Assessment and Plan 66-year-old man with Bilateral lower lobe pneumonias/community acquired - s/p abx treatment azithromycin and Rocephin - Urine culture negative for streptococcus and legionella - Sputum with normal respiratory shannan - Blood cultures negative to date COPD - Symbicort and Spiriva - Status post steroid taper NSTEMI LA thrombus - Echo performed December 07 showed distinct regional wall abnormalities with a possible clot in the apex. Consider repeating study with contrast to definitively assess the apex. -- heparin drip bridging to Coumadin were held secondary to gross hematuria, however now resolved have cardiology restarts medications if indicated -- ASA 81 mg daily. Coreg 6.25 mg BID. Norvasc 10 mg daily. Clonidine to 0.3 mg po TID and hydralazine 100 mg by mouth daily 8 hour -- Dr Quadrat cardiology following the patient. Gross hematuria-Resolved New severe acute kidney injury Chronic kidney disease -- Nephrology started HD 12/12/16. Hemodialysis per nephrology. -- Renal ultrasound-normal. Positive for proteinuria. --Plan for renal biopsy of right kidney next Week Drop in Hb -- Received 2 units PRBC 12/08 transfusion for hemoglobin drop to 6.6 from 7.7. - Hb has been stable Type 2 diabetes-labile blood glucose -- Continue Levemir 20 units at bedtime and SSI Urinary retention/BPH --Continue Flomax 0.4 mg daily Constipation Resolved and continue Stool softener Prophylaxis: GI Prophylaxis Protonix DVT Prophylaxis -- SCDs Discharge Planning D/C pending clearance by nephro and cardio May need to have ECHO repeated to evaluate ?thrombus and need for anticoagulation, will defer to cardiology. Renal biopsy scheduled for next week. Problem Qualifiers (1) Diabetes mellitus: Terrie Alejandro MD Dec 30, 2016 11:31
[2016-12-30] MEDS: ASPIRIN 81 MG CHEW TAB CHEW SCH (13:52)
[2016-12-30] MEDS: ARTIFICIAL TEARS OPTH SOLN 15 ML BTL EACH EYE SCH ×3 (13:52→18:14)
[2016-12-30] MEDS: TIOTROPIUM BROMIDE 18 MCG INH INH SCH (13:52)
[2016-12-30] MEDS: CARVEDILOL 6.25 MG TAB PO SCH ×2 (13:53→21:45)
[2016-12-30] MEDS: BUDESONIDE-FORMOTEROL 160/4.5 MCG INHALER INH SCH ×2 (13:53→21:49)
[2016-12-30] MEDS: TAMSULOSIN HCL 0.4 MG CAP PO SCH (13:53)
[2016-12-30] MEDS: CALCITRIOL 0.25 MCG CAP PO SCH (13:54)
[2016-12-30] MEDS: INSULIN DETEMIR 100 UNITS/ML VIAL SQ SCH (21:49)
[2016-12-31] VITALS (10 sets, daily range): BP systolic 102–139; BP diastolic 54–83; PULSE 60–89; RESP 18–21; TEMP 96.9–99; O2SAT 93–99
[2016-12-31] MEDS: cloNIDine HCL 0.3 MG TAB PO SCH ×3 (00:39→17:23)
[2016-12-31] MEDS: INSULIN NovoLIN REGULAR SUPPLEMENTAL SCALE SQ SCH ×4 (00:39→17:27)
[2016-12-31] MEDS: CHLORHEXIDINE GLUCONATE 2 % 1 PACK (2 CLOTHS) TOP SCH (04:00)
[2016-12-31] MEDS: hydrALAZINE HCL 50 MG TAB PO SCH ×3 (05:21→20:28)
[2016-12-31] MEDS: RESP: ALBUTEROL 2.5 MG/IPRATROPIUM 0.5 MG NEB (SCH) NEB ×3 (08:10→21:00)
[2016-12-31] MEDS: ACETAMINOPHEN 325 MG TAB PO PRN (09:47)
[2016-12-31] MEDS: CARVEDILOL 6.25 MG TAB PO SCH ×2 (09:47→20:28)
[2016-12-31] MEDS: CALCITRIOL 0.25 MCG CAP PO SCH (09:48)
[2016-12-31] MEDS: TAMSULOSIN HCL 0.4 MG CAP PO SCH (09:48)
[2016-12-31] MEDS: ASPIRIN 81 MG CHEW TAB CHEW SCH (09:48)
[2016-12-31] MEDS: CALCIUM ACETATE 667 MG CAP PO SCH ×3 (09:48→17:23)
[2016-12-31] MEDS: ARTIFICIAL TEARS OPTH SOLN 15 ML BTL EACH EYE SCH ×3 (09:49→17:23)
[2016-12-31] MEDS: SODIUM CHLORIDE 0.9% FLUSH 10 ML FLUSH IV FLUSH SCH ×2 (09:49→20:28)
[2016-12-31] MEDS: BUDESONIDE-FORMOTEROL 160/4.5 MCG INHALER INH SCH ×2 (09:49→20:29)
[2016-12-31] MEDS: SODIUM CHLORIDE 0.9% FLUSH 10 ML FLUSH IVF SCH (09:49)
[2016-12-31] MEDS: TIOTROPIUM BROMIDE 18 MCG INH INH SCH (09:49)
[2016-12-31] MEDS: CHLORHEXIDINE 0.12% (ORAL KIT) 15 ML CUP MT SCH ×2 (09:49→20:21)
[2016-12-31 11:05] LABS: BICARBONATE 30.2 MEQ/L (21.0-32.0)
[2016-12-31 11:06] LABS: POTASSIUM 4.4 MEQ/L (3.5-5.1)
--- NOTE | 2016-12-31 12:27 | HHI.PR ---
Subjective Remarks Patient seen and examined this morning. Vitals are stable and the patient's afebrile. Denies CP or SOB. Resting comfortably. Objective Vital Signs Date Time Temp Pulse Resp B/P (MAP) Pulse Ox O2 Delivery O2 Flow Rate FiO2 12/31/16 10:37 65 12/31/16 09:59 Nasal Cannula 2.00 12/31/16 08:13 99 Nasal Cannula 2.00 12/31/16 08:00 97.7 67 20 117/59 (78) 98 12/31/16 04:00 98.0 89 19 139/65 (89) 94 12/31/16 00:00 99.0 74 21 137/83 (101) 93 12/30/16 20:54 96 Nasal Cannula 1.00 12/30/16 20:00 98.4 83 20 135/66 (89) 95 12/30/16 20:00 83 12/30/16 20:00 Room Air 12/30/16 19:48 63 12/30/16 16:04 98.7 84 22 165/75 (105) 96 I/O 12/30/16 12/30/16 12/30/16 12/31/16 12/31/16 12/31/16 07:00 15:00 23:00 07:00 15:00 23:00 Intake Total 480 ml 380 ml 220 ml Output Total 350 ml 2000 ml 800 ml 600 ml Balance 130 ml -2000 ml -420 ml -380 ml Intake Oral 480 ml 380 ml 220 ml IV Total 0 ml Output Urine Total 350 ml 800 ml 600 ml Hemodialysis 2000 ml Bladder Scan Volume Amount 486 ml # Bowel Movements 0 1 Result Diagram: 12/30/16 0748 12/31/16 0928 Imaging Last Impressions Chest X-Ray 12/13/16 0600 Signed Impressions: Service Date/Time: Tuesday, December 13, 2016 04:54 - CONCLUSION: Persistent lobar consolidation left lower lung. Jose Roberto Cheema MD Chest CT 12/08/16 0000 Signed Impressions: Service Date/Time: Thursday, December 08, 2016 14:02 - CONCLUSION: 1. Bilateral lower lobe consolidating airspace disease. 2. Small to moderate bilateral pleural effusions; larger on the left. 3. Cardiomegaly. 4. Endotracheal and nasogastric tubes in good position. Tutu Christianson MD Renal Ultrasound 12/07/16 0000 Signed Impressions: Service Date/Time: November 07:54 - CONCLUSION: Unremarkable and stable bilateral renal ultrasound. No evidence of hydronephrosis. Baron Medrano MD Objective Remarks GENERAL: laying in bed, nad SKIN: Warm and dry. HEAD: Normocephalic. EYES: No scleral icterus. No injection or drainage. NECK: Supple, trachea midline. No JVD or lymphadenopathy. CARDIOVASCULAR: Regular rate and rhythm without murmurs, gallops, or rubs. Right IJ. RESPIRATORY: Breath sounds equal bilaterally. No accessory muscle use. GASTROINTESTINAL: Abdomen soft, non-tender, nondistended. : meadows in place MUSCULOSKELETAL: no calf tenderness A/P Problem List: (1) Diabetes mellitus ICD Code: E11.9 - Diabetes mellitus Status: Chronic (2) NSTEMI (non-ST elevated myocardial infarction) ICD Code: I21.4 - Non-ST elevation (NSTEMI) myocardial infarction Status: Resolved (3) CKD (chronic kidney disease) stage 4, GFR 15-29 ml/min ICD Code: N18.4 - Chronic kidney disease, stage 4 (severe) Status: Acute (4) left atrial thrombus Status: Acute Assessment and Plan 66-year-old man with Bilateral lower lobe pneumonias/community acquired - s/p abx treatment azithromycin and Rocephin - Urine culture negative for streptococcus and legionella - Sputum with normal respiratory shannan - Blood cultures negative to date COPD - Symbicort and Spiriva - Status post steroid taper NSTEMI LA thrombus - Echo performed December 07 showed distinct regional wall abnormalities with a possible clot in the apex. Consider repeating study with contrast to definitively assess the apex. -- heparin drip bridging to Coumadin were held secondary to gross hematuria, however now resolved have cardiology restarts medications if indicated -- ASA 81 mg daily. Coreg 6.25 mg BID. Norvasc 10 mg daily. Clonidine to 0.3 mg po TID and hydralazine 100 mg by mouth daily 8 hour -- Dr Quadrat cardiology following the patient. Gross hematuria-Resolved New severe acute kidney injury Chronic kidney disease -- Nephrology started HD 12/12/16. Hemodialysis per nephrology. -- Renal ultrasound-normal. Positive for proteinuria. --Plan for renal biopsy of right kidney next Week Drop in Hb -- Received 2 units PRBC 12/08 transfusion for hemoglobin drop to 6.6 from 7.7. - Hb has been stable Type 2 diabetes-labile blood glucose -- Continue Levemir 20 units at bedtime and SSI Urinary retention/BPH --Continue Flomax 0.4 mg daily Constipation Resolved and continue Stool softener Prophylaxis: GI Prophylaxis Protonix DVT Prophylaxis -- SCDs Discharge Planning D/C pending clearance by nephro and cardio May need to have ECHO repeated to evaluate ?thrombus and need for anticoagulation, will defer to cardiology. Renal biopsy scheduled for next week. Problem Qualifiers (1) Diabetes mellitus: Terrie Alejandro MD Dec 31, 2016 12:27
--- NOTE | 2016-12-31 12:53 | HHI.NPPN ---
Subjective History of Present Illness 66-year-old male with past medical history of hypertension, diabetes mellitus, history of cerebrovascular accident with left-sided weakness, hyperlipidemia, bronchial asthma, chronic kidney disease who was admitted because of shortness of breath and chest pain. I was called to see the patient because of elevated BUN and creatinine. The patient was diagnosed here with non-ST elevation [place]. The patient has history of chronic kidney disease. Additional Remarks Patient is alert, no complain, with nasal cannula. Objective Data Data Vital Signs Date Time Temp Pulse Resp B/P (MAP) Pulse Ox O2 Delivery O2 Flow Rate FiO2 12/31/16 12:00 98.0 60 20 102/54 (70) 96 12/31/16 10:37 65 12/31/16 09:59 Nasal Cannula 2.00 12/31/16 08:13 99 Nasal Cannula 2.00 12/31/16 08:00 97.7 67 20 117/59 (78) 98 12/31/16 04:00 98.0 89 19 139/65 (89) 94 12/31/16 00:00 99.0 74 21 137/83 (101) 93 12/30/16 20:54 96 Nasal Cannula 1.00 12/30/16 20:00 98.4 83 20 135/66 (89) 95 12/30/16 20:00 83 12/30/16 20:00 Room Air 12/30/16 19:48 63 12/30/16 16:04 98.7 84 22 165/75 (105) 96 -: 12/30/16 0748 12/31/16 0928 Physical Exam General Appearance: No Acute Distress, Comfortable Eyes Eye Exam: Pupils Equal Throat Throat Exam: Oral Mucosa [place] & Moist Neck Neck Exam: Neck Supple Pulmonary Resp Exam: No Distress, Rhonchi, Decreased Bases, Diminished Breath Sounds Cardiology CV Exam: Regular, Normal Sinus Rhythm Gastrointestinal/Abdomen GI Exam: Soft, Non-Tender, Bowel Sounds Present Extremeties Extremities Exam: Moderate Edema Neurologic Neuro Exam: Alert, Awake Psychiatric Psych Exam: Appropriate Responses Assessment/Plan Assessment Summary: WILLIE/Acute Renal Failure, CHF, CKD Stage IV Problem List: (1) NSTEMI (non-ST elevated myocardial infarction) ICD Codes: I21.4 - Non-ST elevation (NSTEMI) myocardial infarction Status: Resolved (2) Diabetes mellitus ICD Codes: E11.9 - Diabetes mellitus Status: Chronic (3) Asthma ICD Codes: J45.909 - Asthma Status: Chronic (4) Shortness of breath ICD Codes: R06.02 - Shortness of breath Status: Acute (5) Leg edema ICD Codes: R60.0 - Leg edema Status: Acute (6) Hypertension ICD Codes: I10 - Hypertension Status: Chronic (7) CKD (chronic kidney disease) stage 4, GFR 15-29 ml/min ICD Codes: N18.4 - Chronic kidney disease, stage 4 (severe) Status: Acute (8) ARF (acute renal failure) ICD Codes: N17.9 - ARF (acute renal failure) Status: Acute Plan Patient has been non oliguric, Creatinine is still elevated. K is normal, Follow urine out put and BMP. Has proteinuria, serology pending. Added Phoslo as Po4 is elevated and calcitriol as Calcium is low. BP is better. Follow urine out put and watch for any renal recovery. Renal Biopsy will be done next week. HD done yesterday. Continue HD for now. Further plan after the Biopsy. Problem Qualifiers (1) Diabetes mellitus: (2) Hypertension: Qualified Codes: I10 - Essential (primary) hypertension (3) ARF (acute renal failure): Zoey Carbone MD Dec 31, 2016 12:52
[2016-12-31] MEDS: INSULIN DETEMIR 100 UNITS/ML VIAL SQ SCH (20:28)
[2017-01-01] VITALS (8 sets, daily range): BP systolic 115–161; BP diastolic 58–74; PULSE 55–73; RESP 18–20; TEMP 97.3–98.5; O2SAT 97–100
[2017-01-01] MEDS: cloNIDine HCL 0.3 MG TAB PO SCH ×3 (00:56→17:34)
[2017-01-01] MEDS: INSULIN NovoLIN REGULAR SUPPLEMENTAL SCALE SQ SCH ×4 (00:57→17:35)
[2017-01-01] MEDS: CHLORHEXIDINE GLUCONATE 2 % 1 PACK (2 CLOTHS) TOP SCH (03:31)
[2017-01-01] MEDS: hydrALAZINE HCL 50 MG TAB PO SCH ×3 (05:47→21:47)
[2017-01-01] MEDS: CHLORHEXIDINE 0.12% (ORAL KIT) 15 ML CUP MT SCH ×2 (08:00→20:00)
[2017-01-01] MEDS: RESP: ALBUTEROL 2.5 MG/IPRATROPIUM 0.5 MG NEB (SCH) NEB (08:07)
[2017-01-01] MEDS: ARTIFICIAL TEARS OPTH SOLN 15 ML BTL EACH EYE SCH ×3 (09:00→17:34)
[2017-01-01] MEDS: SODIUM CHLORIDE 0.9% FLUSH 10 ML FLUSH IVF SCH (09:00)
--- NOTE | 2017-01-01 09:43 | HHI.PR ---
Subjective Remarks Patient seen and examined this morning. Vitals are stable and the patient's afebrile. Denies CP or SOB. Resting comfortably. States he has family in [place]. Objective Vital Signs Date Time Temp Pulse Resp B/P (MAP) Pulse Ox O2 Delivery O2 Flow Rate FiO2 01/01/17 08:09 99 Nasal Cannula 1.00 01/01/17 08:00 97.5 56 18 140/66 (90) 98 01/01/17 04:00 97.3 55 20 119/66 (83) 97 01/01/17 04:00 Nasal Cannula 2.00 01/01/17 00:00 Nasal Cannula 2.00 01/01/17 00:00 97.7 61 18 117/58 (77) 99 12/31/16 21:07 98 Nasal Cannula 1.00 12/31/16 20:00 97.5 69 18 119/64 (82) 99 12/31/16 20:00 Nasal Cannula 2.00 12/31/16 18:02 98 Nasal Cannula 2.00 12/31/16 16:00 96.9 67 20 122/61 (81) 97 12/31/16 12:00 98.0 60 20 102/54 (70) 96 12/31/16 10:37 65 12/31/16 09:59 Nasal Cannula 2.00 I/O 12/31/16 12/31/16 12/31/16 01/01/17 01/01/17 01/01/17 07:00 15:00 23:00 07:00 15:00 23:00 Intake Total 220 ml 240 ml 320 ml Output Total 600 ml 200 ml Balance -380 ml 240 ml -200 ml 320 ml Intake Oral 220 ml 240 ml 320 ml Output Urine Total 600 ml 200 ml # Voids 2 # Bowel Movements 1 0 0 Result Diagram: 12/30/16 0748 12/31/16 0928 Imaging Last Impressions Chest X-Ray 12/13/16 0600 Signed Impressions: Service Date/Time: Tuesday, December 13, 2016 04:54 - CONCLUSION: Persistent lobar consolidation left lower lung. Jose Roberto Cheema MD Chest CT 12/08/16 0000 Signed Impressions: Service Date/Time: Thursday, December 08, 2016 14:02 - CONCLUSION: 1. Bilateral lower lobe consolidating airspace disease. 2. Small to moderate bilateral pleural effusions; larger on the left. 3. Cardiomegaly. 4. Endotracheal and nasogastric tubes in good position. Tutu Christianson MD Renal Ultrasound 12/07/16 0000 Signed Impressions: Service Date/Time: , December 07, 2016 07:54 - CONCLUSION: Unremarkable and stable bilateral renal ultrasound. No evidence of hydronephrosis. Baron Medrano MD Objective Remarks GENERAL: laying in bed, nad SKIN: Warm and dry. HEAD: Normocephalic. EYES: No scleral icterus. No injection or drainage. NECK: Supple, trachea midline. No JVD or lymphadenopathy. CARDIOVASCULAR: Regular rate and rhythm without murmurs, gallops, or rubs. Right IJ. RESPIRATORY: Breath sounds equal bilaterally. No accessory muscle use. GASTROINTESTINAL: Abdomen soft, non-tender, nondistended. : me[place] in place MUSCULOSKELETAL: no calf tenderness A/P Problem List: (1) Diabetes mellitus ICD Code: E11.9 - Diabetes mellitus Status: Chronic (2) NSTEMI (non-ST elevated myocardial infarction) ICD Code: I21.4 - Non-ST elevation (NSTEMI) myocardial infarction Status: Resolved (3) CKD (chronic kidney disease) stage 4, GFR 15-29 ml/min ICD Code: N18.4 - Chronic kidney disease, stage 4 (severe) Status: Acute (4) left atrial thrombus Status: Acute Assessment and Plan 66-year-old man with Bilateral lower lobe pneumonias/community acquired - s/p abx treatment azithromycin and Rocephin - Urine culture negative for streptococcus and legionella - Sputum with normal respiratory shannan - Blood cultures negative to date COPD - Symbicort and Spiriva - Status post steroid taper NSTEMI LA thrombus - Echo performed December 07 showed distinct regional wall abnormalities with a possible clot in the apex. Consider repeating study with contrast to definitively assess the apex. -- heparin drip bridging to Coumadin were held secondary to gross hematuria, however now resolved have cardiology restarts medications if indicated -- ASA 81 mg daily. Coreg 6.25 mg BID. Norvasc 10 mg daily. Clonidine to 0.3 mg po TID and hydralazine 100 mg by mouth daily 8 hour -- Dr Quadrat cardiology following the patient. Gross hematuria-Resolved New severe acute kidney injury Chronic kidney disease -- Nephrology started HD 12/12/16. Hemodialysis per nephrology. -- Renal ultrasound-normal. Positive for proteinuria. --Plan for renal biopsy of right kidney next Week Drop in Hb - no further episodes, has been stable -- hx: Received 2 units PRBC 12/08 transfusion for hemoglobin drop to 6.6 from 7.7. Type 2 diabetes-labile blood glucose -- Continue Levemir 20 units at bedtime and SSI Urinary retention/BPH --Continue Flomax 0.4 mg daily Prophylaxis: GI Prophylaxis Protonix DVT Prophylaxis -- SCDs Discharge Planning In summary this is a 66-year-old male with medical history significant for hypertension and diabetes and CVA who presented to the hospital with a chief complaint of shortness of breath and chest pain. The patient was diagnosed with NSTEMI. Echo was performed which was concerning for thrombus, but study was limited in the repeat was suggested. Dr. Chapin has been following the patient. He has history of chronic kidney disease but worsening of his creatinine was noted. He was seen and evaluated by nephrology who started the patient on hemodialysis. Plan for this week for the patient to have a right kidney biopsy. D/C pending clearance by nephro and cardio May need to have ECHO repeated to evaluate ?thrombus and need for anticoagulation, will defer to cardiology. Problem Qualifiers (1) Diabetes mellitus: Terrie Alejandro MD Jan 01, 2017 09:43
[2017-01-01 09:47] LABS: BICARBONATE 28.1 MEQ/L (21.0-32.0); POTASSIUM 3.9 MEQ/L (3.5-5.1)
[2017-01-01] MEDS: CALCIUM ACETATE 667 MG CAP PO SCH ×3 (10:09→17:34)
[2017-01-01] MEDS: TAMSULOSIN HCL 0.4 MG CAP PO SCH (10:09)
[2017-01-01] MEDS: CALCITRIOL 0.25 MCG CAP PO SCH (10:09)
[2017-01-01] MEDS: SODIUM CHLORIDE 0.9% FLUSH 10 ML FLUSH IV FLUSH SCH ×2 (10:10→21:48)
[2017-01-01] MEDS: ASPIRIN 81 MG CHEW TAB CHEW SCH (10:10)
[2017-01-01] MEDS: CARVEDILOL 6.25 MG TAB PO SCH ×2 (10:10→21:47)
[2017-01-01] MEDS: BUDESONIDE-FORMOTEROL 160/4.5 MCG INHALER INH SCH ×2 (10:11→21:49)
[2017-01-01] MEDS: TIOTROPIUM BROMIDE 18 MCG INH INH SCH (10:11)
--- NOTE | 2017-01-01 16:07 | HHI.NPPN ---
Subjective History of Present Illness 66-year-old male with past medical history of hypertension, diabetes mellitus, history of cerebrovascular accident with left-sided weakness, hyperlipidemia, bronchial asthma, chronic kidney disease who was admitted because of shortness of breath and chest pain. I was called to see the patient because of elevated BUN and creatinine. The patient was diagnosed here with non-ST elevation [place]. The patient has history of chronic kidney disease. Additional Remarks Patient is alert, no complain, clinically same, not in distress. Objective Data Data Vital Signs Date Time Temp Pulse Resp B/P (MAP) Pulse Ox O2 Delivery O2 Flow Rate FiO2 01/01/17 11:39 97.6 63 18 115/63 (80) 100 01/01/17 08:09 99 Nasal Cannula 1.00 01/01/17 08:00 97.5 56 18 140/66 (90) 98 01/01/17 04:00 97.3 55 20 119/66 (83) 97 01/01/17 04:00 Nasal Cannula 2.00 01/01/17 00:00 Nasal Cannula 2.00 01/01/17 00:00 97.7 61 18 117/58 (77) 99 12/31/16 21:07 98 Nasal Cannula 1.00 12/31/16 20:00 97.5 69 18 119/64 (82) 99 12/31/16 20:00 Nasal Cannula 2.00 12/31/16 18:02 98 Nasal Cannula 2.00 -: 12/30/16 0748 01/01/17 0901 Physical Exam General Appearance: No Acute Distress, Comfortable Eyes Eye Exam: Pupils Equal Throat Throat Exam: Oral Mucosa [place] & Moist Neck Neck Exam: Neck Supple Pulmonary Resp Exam: No Distress, Rhonchi, Decreased Bases, Diminished Breath Sounds Cardiology CV Exam: Regular, Normal Sinus Rhythm Gastrointestinal/Abdomen GI Exam: Soft, Non-Tender, Bowel Sounds Present Extremeties Extremities Exam: Moderate Edema Neurologic Neuro Exam: Alert, Awake Psychiatric Psych Exam: Appropriate Responses Assessment/Plan Assessment Summary: WILLIE/Acute Renal Failure, CHF, CKD Stage IV Problem List: (1) NSTEMI (non-ST elevated myocardial infarction) ICD Codes: I21.4 - Non-ST elevation (NSTEMI) myocardial infarction Status: Resolved (2) Diabetes mellitus ICD Codes: E11.9 - Diabetes mellitus Status: Chronic (3) Asthma ICD Codes: J45.909 - Asthma Status: Chronic (4) Shortness of breath ICD Codes: R06.02 - Shortness of breath Status: Acute (5) Leg edema ICD Codes: R60.0 - Leg edema Status: Acute (6) Hypertension ICD Codes: I10 - Hypertension Status: Chronic (7) CKD (chronic kidney disease) stage 4, GFR 15-29 ml/min ICD Codes: N18.4 - Chronic kidney disease, stage 4 (severe) Status: Acute (8) ARF (acute renal failure) ICD Codes: N17.9 - ARF (acute renal failure) Status: Acute Plan Patient has been non oliguric, Creatinine is still elevated. K is normal, Follow urine out put and BMP. Has proteinuria, serology pending. Added Phoslo as Po4 is elevated and calcitriol as Calcium is low. BP is better. Follow urine out put and watch for any renal recovery. Renal Biopsy possibly in AM. Further plan after the Biopsy. HD will be in AM. Problem Qualifiers (1) Diabetes mellitus: (2) Hypertension: Qualified Codes: I10 - Essential (primary) hypertension (3) ARF (acute renal failure): Zoey Carbone MD Jan 01, 2017 16:07
[2017-01-01] MEDS: INSULIN DETEMIR 100 UNITS/ML VIAL SQ SCH (21:48)
[2017-01-02] VITALS (9 sets, daily range): BP systolic 119–152; BP diastolic 58–73; PULSE 60–85; RESP 18; TEMP 97.7–100.1; O2SAT 96–99
[2017-01-02] MEDS: cloNIDine HCL 0.3 MG TAB PO SCH ×3 (01:17→17:50)
[2017-01-02] MEDS: CHLORHEXIDINE GLUCONATE 2 % 1 PACK (2 CLOTHS) TOP SCH (01:18)
[2017-01-02] MEDS: hydrALAZINE HCL 50 MG TAB PO SCH ×3 (05:48→21:45)
[2017-01-02] MEDS: INSULIN NovoLIN REGULAR SUPPLEMENTAL SCALE SQ SCH ×4 (05:48→17:51)
[2017-01-02] MEDS: CHLORHEXIDINE 0.12% (ORAL KIT) 15 ML CUP MT SCH ×2 (08:00→20:00)
[2017-01-02] MEDS: SODIUM CHLORIDE 0.9% FLUSH 10 ML FLUSH IV FLUSH SCH ×2 (09:00→21:00)
[2017-01-02] MEDS: ARTIFICIAL TEARS OPTH SOLN 15 ML BTL EACH EYE SCH ×3 (09:00→17:54)
[2017-01-02] MEDS: SODIUM CHLORIDE 0.9% FLUSH 10 ML FLUSH IVF SCH (09:00)
--- NOTE | 2017-01-02 10:27 | HHI.NPPN ---
Subjective History of Present Illness 66-year-old male with past medical history of hypertension, diabetes mellitus, history of cerebrovascular accident with left-sided weakness, hyperlipidemia, bronchial asthma, chronic kidney disease who was admitted because of shortness of breath and chest pain. I was called to see the patient because of elevated BUN and creatinine. The patient was diagnosed here with non-ST elevation [place]. The patient has history of chronic kidney disease. Additional Remarks Patient is alert, seen during HD, no complain. Objective Data Data Vital Signs Date Time Temp Pulse Resp B/P (MAP) Pulse Ox O2 Delivery O2 Flow Rate FiO2 01/02/17 09:36 97 Nasal Cannula 1.00 01/02/17 08:00 98.0 65 18 145/70 (95) 97 01/02/17 04:47 97.7 60 18 133/66 (88) 98 01/02/17 00:20 98.5 69 18 139/64 (89) 96 01/01/17 20:22 97 Nasal Cannula 1.00 01/01/17 20:22 98.5 73 18 161/74 (103) 97 01/01/17 19:26 Nasal Cannula 2.00 01/01/17 16:00 97.9 62 18 138/65 (89) 99 01/01/17 11:39 97.6 63 18 115/63 (80) 100 -: 12/30/16 0748 01/01/17 0901 Physical Exam General Appearance: No Acute Distress, Comfortable Eyes Eye Exam: Pupils Equal Throat Throat Exam: Oral Mucosa [place] & Moist Neck Neck Exam: Neck Supple Pulmonary Resp Exam: No Distress, Rhonchi, Decreased Bases, Diminished Breath Sounds Cardiology CV Exam: Regular, Normal Sinus Rhythm Gastrointestinal/Abdomen GI Exam: Soft, Non-Tender, Bowel Sounds Present Extremeties Extremities Exam: Moderate Edema Neurologic Neuro Exam: Alert, Awake Psychiatric Psych Exam: Appropriate Responses Assessment/Plan Assessment Summary: WILLIE/Acute Renal Failure, CHF, CKD Stage IV Problem List: (1) NSTEMI (non-ST elevated myocardial infarction) ICD Codes: I21.4 - Non-ST elevation (NSTEMI) myocardial infarction Status: Resolved (2) Diabetes mellitus ICD Codes: E11.9 - Diabetes mellitus Status: Chronic (3) Asthma ICD Codes: J45.909 - Asthma Status: Chronic (4) Shortness of breath ICD Codes: R06.02 - Shortness of breath Status: Acute (5) Leg edema ICD Codes: R60.0 - Leg edema Status: Acute (6) Hypertension ICD Codes: I10 - Hypertension Status: Chronic (7) CKD (chronic kidney disease) stage 4, GFR 15-29 ml/min ICD Codes: N18.4 - Chronic kidney disease, stage 4 (severe) Status: Acute (8) ARF (acute renal failure) ICD Codes: N17.9 - ARF (acute renal failure) Status: Acute Plan Patient has been non oliguric, Creatinine is still elevated. K is normal, Follow urine out put and BMP. Has proteinuria, serology pending. Added Phoslo as Po4 is elevated and calcitriol as Calcium is low. BP is better. Follow urine out put and watch for any renal recovery. Renal Biopsy to be done, will check with IR. Also will need PermCath , has poor flow from Vascath. Problem Qualifiers (1) Diabetes mellitus: (2) Hypertension: Qualified Codes: I10 - Essential (primary) hypertension (3) ARF (acute renal failure): Zoey Carbone MD Jan 02, 2017 10:27
[2017-01-02] MEDS: HEPARIN SODIUM - IV 10,000 UNITS/10 ML VIAL IVF PRN (11:36)
[2017-01-02] MEDS: GENTAMICIN SULFATE (DIALYSIS USE ONLY) 20 MG/2 ML VIAL IV PRN (11:36)
[2017-01-02] MEDS: EPOETIN ALFA 10,000 UNITS/ML VIAL IV PRN (11:36)
[2017-01-02] MEDS: CALCIUM ACETATE 667 MG CAP PO SCH ×3 (13:00→17:50)
[2017-01-02] MEDS: TAMSULOSIN HCL 0.4 MG CAP PO SCH (14:18)
[2017-01-02] MEDS: CALCITRIOL 0.25 MCG CAP PO SCH (14:18)
[2017-01-02] MEDS: ASPIRIN 81 MG CHEW TAB CHEW SCH (14:18)
[2017-01-02] MEDS: CARVEDILOL 6.25 MG TAB PO SCH ×2 (14:18→21:45)
[2017-01-02] MEDS: TIOTROPIUM BROMIDE 18 MCG INH INH SCH (14:19)
[2017-01-02] MEDS: BUDESONIDE-FORMOTEROL 160/4.5 MCG INHALER INH SCH ×2 (14:19→21:46)
[2017-01-02] MEDS: INSULIN DETEMIR 100 UNITS/ML VIAL SQ SCH (21:50)
--- NOTE | 2017-01-02 23:14 | HHI.PR ---
Subjective Remarks Follow up for bilateral lower lobe pneumonia, WILLIE requiring HD, NSTEMI. Mr. Mehta was seen after dialysis. He reports no acute concerns. Does not speak much but denies any chest pain, shortness of breath, fever, chills. Objective Vitals Vital Signs Date Time Temp Pulse Resp B/P (MAP) Pulse Ox O2 Delivery O2 Flow Rate FiO2 01/02/17 20:42 99.1 72 18 119/58 (78) 99 01/02/17 16:00 100.1 85 18 152/73 (99) 99 01/02/17 13:49 97 Nasal Cannula 1.00 01/02/17 09:36 97 Nasal Cannula 1.00 01/02/17 08:00 68 01/02/17 08:00 98.0 65 18 145/70 (95) 97 01/02/17 08:00 Nasal Cannula 2.00 01/02/17 04:47 97.7 60 18 133/66 (88) 98 01/02/17 00:20 98.5 69 18 139/64 (89) 96 I/O 01/02/17 01/02/17 01/02/17 01/03/17 01/03/17 01/03/17 07:00 15:00 23:00 07:00 15:00 23:00 Intake Total 480 ml 720 ml Output Total 2000 ml 1 ml Balance 480 ml -2000 ml 719 ml Intake Oral 480 ml 720 ml Stool Total 1 ml Hemodialysis 2000 ml # Voids 4 1 # Bowel Movements 0 0 Result Diagram: 12/30/16 0748 01/01/17 0901 Imaging Last Impressions Chest X-Ray 12/13/16 0600 Signed Impressions: Service Date/Time: Tuesday, December 13, 2016 04:54 - CONCLUSION: Persistent lobar consolidation left lower lung. Jose Roberto Cheema MD Chest CT 12/08/16 0000 Signed Impressions: Service Date/Time: Thursday, December 08, 2016 14:02 - CONCLUSION: 1. Bilateral lower lobe consolidating airspace disease. 2. Small to moderate bilateral pleural effusions; larger on the left. 3. Cardiomegaly. 4. Endotracheal and nasogastric tubes in good position. Tutu Christianson MD Renal Ultrasound 12/07/16 0000 Signed Impressions: Service Date/Time: November 07:54 - CONCLUSION: Unremarkable and stable bilateral renal ultrasound. No evidence of hydronephrosis. Baron Medrano MD Objective Remarks GENERAL: Alert, NAD. SKIN: Warm and dry. HEAD: Normocephalic. EYES: No scleral icterus. No injection or drainage. NECK: Supple, trachea midline. No JVD or lymphadenopathy. CARDIOVASCULAR: Regular rate and rhythm without murmurs, gallops, or rubs. RESPIRATORY: Breath sounds equal bilaterally. No accessory muscle use. GASTROINTESTINAL: Abdomen soft, non-tender, nondistended. MUSCULOSKELETAL: No cyanosis, or edema. BACK: Nontender without obvious deformity. No CVA tenderness. Procedures Echo 12/07/2016 Mildly dilated left ventricle. Wall thickness is normal. The left ventricular systolic function is normal with an estimated ejection fraction is 45-50%. There is distinct regional wall motion abnormalities with akinetic apex and possibly clot at the apex. Consider repeating study with contrast/Definity to better asses apex The right ventriclar size is upper limits of normal. The left atrial size is moderately dilated. The right atrial size is moderately dilated. [id number] mitral valve regurgitation. There is mild tricuspid valve regurgitation. There is estimated mild pulmonary hypertension present (range 40-50 mmHg). The pulmonary valve is not well visualized. The inferior vena cava is dilated. There is less than 50% respiratory change in dimension of the inferior vena cava (abnormal). A/P Problem List: (1) Respiratory failure ICD Code: J96.90 - Respiratory failure, unspecified, unspecified whether with hypoxia or hypercapnia Status: Acute (2) Sepsis ICD Code: A41.9 - Sepsis, unspecified organism Status: Acute (3) Pneumonia ICD Code: J18.9 - Pneumonia, unspecified organism Status: Acute (4) left atrial thrombus Status: Acute (5) NSTEMI (non-ST elevated myocardial infarction) ICD Code: I21.4 - Non-ST elevation (NSTEMI) myocardial infarction Status: Resolved (6) ARF (acute renal failure) ICD Code: N17.9 - ARF (acute renal failure) Status: Acute (7) Diabetes mellitus ICD Code: E11.9 - Diabetes mellitus Status: Chronic (8) Morbid obesity ICD Code: E66.01 - Morbid (severe) obesity due to excess calories Status: Acute (9) Severe chronic obstructive pulmonary disease ICD Code: J44.9 - Chronic obstructive pulmonary disease, unspecified Status: Acute (10) CKD (chronic kidney disease) stage 4, GFR 15-29 ml/min ICD Code: N18.4 - Chronic kidney disease, stage 4 (severe) Status: Acute Assessment and Plan Mr. Mehta is a 66-year-old male with medical history significant for hypertension and diabetes and CVA who presented to the hospital with a chief complaint of shortness of breath and chest pain. The patient was diagnosed with NSTEMI. Echo was performed which was concerning for thrombus, but study was limited and a repeat was suggested. He has history of chronic kidney disease but worsening of his creatinine was noted. He was seen and evaluated by nephrology who started the patient on hemodialysis. Kidney bx is planned. Bilateral lower lobe pneumonias/community acquired - s/p abx treatment azithromycin and Rocephin - Urine culture negative for streptococcus and legionella - Sputum with normal respiratory shannan - Blood cultures negative to date COPD - Symbicort and Spiriva - Status post steroid taper NSTEMI LA thrombus Hypertension - Echo performed December 07 showed distinct regional wall abnormalities with a possible clot in the apex. - Will discuss with Dr. Chapin to see if he still wants to repeat another Echo with Definity contrast study. - Heparin drip and Warfarin on hold. - ASA 81 mg daily. Coreg 6.25 mg BID. Norvasc 10 mg daily. Clonidine to 0.3 mg po TID and hydralazine 100 mg by mouth daily 8 hour Diabetes mellitus - Continue Levemir 25 units QHS and sliding scale insulin. BPH - continue Tamsulosin. Full code. Problem Qualifiers (1) Sepsis: (2) Pneumonia: (3) ARF (acute renal failure): (4) Diabetes mellitus: Zachary Man DO Jan 02, 2017 23:14
[2017-01-03] VITALS (9 sets, daily range): BP systolic 107–144; BP diastolic 56–75; PULSE 60–85; RESP 16–20; TEMP 97.2–98.4; O2SAT 94–100
[2017-01-03] MEDS: cloNIDine HCL 0.3 MG TAB PO SCH ×3 (01:09→16:00)
[2017-01-03] MEDS: CHLORHEXIDINE GLUCONATE 2 % 1 PACK (2 CLOTHS) TOP SCH (04:00)
[2017-01-03] MEDS: INSULIN NovoLIN REGULAR SUPPLEMENTAL SCALE SQ SCH ×4 (06:00→18:00)
[2017-01-03] MEDS: hydrALAZINE HCL 50 MG TAB PO SCH ×3 (06:22→20:55)
[2017-01-03] MEDS: ARTIFICIAL TEARS OPTH SOLN 15 ML BTL EACH EYE SCH ×3 (09:00→17:40)
[2017-01-03] MEDS: CALCIUM ACETATE 667 MG CAP PO SCH ×3 (09:46→17:41)
[2017-01-03] MEDS: ASPIRIN 81 MG CHEW TAB CHEW SCH (09:46)
[2017-01-03] MEDS: CARVEDILOL 6.25 MG TAB PO SCH ×2 (09:46→20:55)
[2017-01-03] MEDS: TAMSULOSIN HCL 0.4 MG CAP PO SCH (09:46)
[2017-01-03] MEDS: TIOTROPIUM BROMIDE 18 MCG INH INH SCH (09:47)
[2017-01-03] MEDS: BUDESONIDE-FORMOTEROL 160/4.5 MCG INHALER INH SCH ×2 (09:47→20:54)
[2017-01-03] MEDS: SODIUM CHLORIDE 0.9% FLUSH 10 ML FLUSH IV FLUSH SCH ×2 (09:50→20:55)
[2017-01-03] MEDS: SODIUM CHLORIDE 0.9% FLUSH 10 ML FLUSH IVF SCH (09:50)
[2017-01-03] MEDS: CALCITRIOL 0.25 MCG CAP PO SCH (09:53)
--- NOTE | 2017-01-03 10:48 | HHI.PR ---
Subjective Remarks Follow up for bilateral lower lobe pneumonia, WILLIE requiring HD, NSTEMI. Mr. Mehta is doing well. He denies any acute concerns. Objective Vitals Vital Signs Date Time Temp Pulse Resp B/P (MAP) Pulse Ox O2 Delivery O2 Flow Rate FiO2 01/03/17 08:00 97.8 67 16 144/67 (92) 97 01/03/17 04:34 98.4 60 18 107/56 (73) 99 01/02/17 23:13 98.8 67 18 142/66 (91) 98 01/02/17 21:50 Nasal Cannula 2.00 01/02/17 20:42 99.1 72 18 119/58 (78) 99 01/02/17 20:32 73 01/02/17 16:00 100.1 85 18 152/73 (99) 99 01/02/17 13:49 97 Nasal Cannula 1.00 I/O 01/02/17 01/02/17 01/02/17 01/03/17 01/03/17 01/03/17 07:00 15:00 23:00 07:00 15:00 23:00 Intake Total 480 ml 720 ml 240 ml Output Total 2000 ml 1 ml Balance 480 ml -2000 ml 719 ml 240 ml Intake Oral 480 ml 720 ml 240 ml Stool Total 1 ml Hemodialysis 2000 ml # Voids 4 1 3 # Bowel Movements 0 0 1 Result Diagram: 12/30/16 0748 01/01/17 0901 Objective Remarks GENERAL: Alert, NAD. SKIN: Warm and dry. HEAD: Normocephalic. EYES: No scleral icterus. No injection or drainage. NECK: Supple, trachea midline. No JVD or lymphadenopathy. CARDIOVASCULAR: Regular rate and rhythm without murmurs, gallops, or rubs. RESPIRATORY: Breath sounds equal bilaterally. No accessory muscle use. GASTROINTESTINAL: Abdomen soft, non-tender, nondistended. MUSCULOSKELETAL: No cyanosis, or edema. BACK: Nontender without obvious deformity. No CVA tenderness. Procedures Echo 12/07/2016 Mildly dilated left ventricle. Wall thickness is normal. The left ventricular systolic function is normal with an estimated ejection fraction is 45-50%. There is distinct regional wall motion abnormalities with akinetic apex and possibly clot at the apex. Consider repeating study with contrast/Definity to better asses apex The right ventriclar size is upper limits of normal. The left atrial size is moderately dilated. The right atrial size is moderately dilated. [id number] mitral valve regurgitation. There is mild tricuspid valve regurgitation. There is estimated mild pulmonary hypertension present (range 40-50 mmHg). The pulmonary valve is not well visualized. The inferior vena cava is dilated. There is less than 50% respiratory change in dimension of the inferior vena cava (abnormal). A/P Problem List: (1) Respiratory failure ICD Code: J96.90 - Respiratory failure, unspecified, unspecified whether with hypoxia or hypercapnia Status: Acute (2) Sepsis ICD Code: A41.9 - Sepsis, unspecified organism Status: Acute (3) Pneumonia ICD Code: J18.9 - Pneumonia, unspecified organism Status: Acute (4) left atrial thrombus Status: Acute (5) NSTEMI (non-ST elevated myocardial infarction) ICD Code: I21.4 - Non-ST elevation (NSTEMI) myocardial infarction Status: Resolved (6) ARF (acute renal failure) ICD Code: N17.9 - ARF (acute renal failure) Status: Acute (7) Diabetes mellitus ICD Code: E11.9 - Diabetes mellitus Status: Chronic (8) Morbid obesity ICD Code: E66.01 - Morbid (severe) obesity due to excess calories Status: Acute (9) Severe chronic obstructive pulmonary disease ICD Code: J44.9 - Chronic obstructive pulmonary disease, unspecified Status: Acute (10) CKD (chronic kidney disease) stage 4, GFR 15-29 ml/min ICD Code: N18.4 - Chronic kidney disease, stage 4 (severe) Status: Acute Assessment and Plan Mr. Mehta is a 66-year-old male with medical history significant for hypertension and diabetes and CVA who presented to the hospital with a chief complaint of shortness of breath and chest pain. The patient was diagnosed with NSTEMI. Echo was performed which was concerning for thrombus, but study was limited and a repeat was suggested. He has history of chronic kidney disease but worsening of his creatinine was noted. He was seen and evaluated by nephrology who started the patient on hemodialysis. Kidney bx is planned. CKD stage IV with GFR 15-29. Acute renal failure - currently on hemodialysis. - PermaCath placed. - Kidney biopsy on 01/04/2017. Nephrology following. Bilateral lower lobe pneumonias/community acquired - s/p abx treatment azithromycin and Rocephin - Urine culture negative for streptococcus and legionella - Sputum with normal respiratory shannan - Blood cultures negative to date COPD - Symbicort and Spiriva - Status post steroid taper NSTEMI LA thrombus Hypertension - Echo performed December 07 showed distinct regional wall abnormalities with a possible clot in the apex. - Dr. Chapin is out of town. Will discuss with kitchen work supervisor covering him about repeat echo with Definity contrast. - Heparin drip and Warfarin on hold. - ASA 81 mg daily. Coreg 6.25 mg BID. Norvasc 10 mg daily. Clonidine to 0.3 mg po TID and hydralazine 100 mg by mouth daily 8 hour Diabetes mellitus - Continue Levemir 30 units QHS and sliding scale insulin. - will add pre-meal insulin 5 units TIDAC BPH - continue Tamsulosin. Full code. Discharge plan: Due to patient's status as a non Citizen, arranging outpatient dialysis would be challenging. Problem Qualifiers (1) Sepsis: (2) Pneumonia: (3) ARF (acute renal failure): (4) Diabetes mellitus: Zachary Man DO Jan 03, 2017 10:48
[2017-01-03] MEDS ORDERED: LIDOCAINE HCL 1% 20 ML VIAL ONE (12:51)
[2017-01-03] MEDS ORDERED: SODIUM BICARBONATE 8.4% INJ 50 ML ONE (13:03)
[2017-01-03] MEDS ORDERED: ceFAZolin 2 GM PREMIX 50 ML ONE (14:07)
[2017-01-03] MEDS ORDERED: VANCOMYCIN HCL 1000 MG VIAL ONE (14:07)
[2017-01-03] MEDS ORDERED: MIDAZOLAM HCL 2 MG/2 ML VIAL ONE (14:07)
[2017-01-03 15:34] LABS: AUTOMATED NEUTROPHIL # 2.5 TH/MM3 (1.8-7.7); BASOPHIL % 0.9 % (0.0-2.0); EOSINOPHIL # 0.4 TH/MM3 (0-0.4); EOSINOPHIL % 8.2 % (0.0-4.0); HEMATOCRIT 31.1 % (39.0-51.0); HEMO FLAGS DIFF FINAL; LYMPH % 26.2 % (9.0-44.0); LYMPHOCYTE # 1.3 TH/MM3 (1.0-4.8); MEAN CELL VOLUME 89.2 FL (80.0-100.0); MEAN CORPUSCULAR HGB CONC 32.5 % (32.0-36.0); MONO % 13.4 % (0.0-8.0); NEUT % 51.3 % (16.0-70.0); PLATELET COUNT 242 TH/MM3 (150-450); RED BLOOD COUNT 3.48 MIL/MM3 (4.50-5.90); RED CELL DISTRIBUTION WIDTH 16.1 % (11.6-17.2); WHITE BLOOD COUNT 4.8 TH/MM3 (4.0-11.0)
[2017-01-03 16:08] LABS: AUTOMATED NEUTROPHIL # 2.7 TH/MM3 (1.8-7.7); BASOPHIL % 0.5 % (0.0-2.0); EOSINOPHIL # 0.4 TH/MM3 (0-0.4); EOSINOPHIL % 8.1 % (0.0-4.0); HEMATOCRIT 30.5 % (39.0-51.0); HEMO FLAGS DIFF FINAL; LYMPH % 27.4 % (9.0-44.0); LYMPHOCYTE # 1.4 TH/MM3 (1.0-4.8); MEAN CELL VOLUME 89.5 FL (80.0-100.0); MEAN CORPUSCULAR HEMOGLOBIN 28.7 PG (27.0-34.0); MEAN CORPUSCULAR HGB CONC 32.1 % (32.0-36.0); MONO % 12.3 % (0.0-8.0); NEUT % 51.7 % (16.0-70.0); PLATELET COUNT 244 TH/MM3 (150-450); RED BLOOD COUNT 3.41 MIL/MM3 (4.50-5.90); RED CELL DISTRIBUTION WIDTH 16.2 % (11.6-17.2); WHITE BLOOD COUNT 5.2 TH/MM3 (4.0-11.0)
[2017-01-03] MEDS ORDERED: HEPARIN SODIUM - IV 2,000 UNITS/2 ML VIAL IV FLUSH PRN (16:15)
[2017-01-03] MEDS ORDERED: SODIUM CHLORIDE 0.9% FLUSH 10 ML FLUSH IVF PRN (16:15)
--- NOTE | 2017-01-03 16:20 | PD.RAD ---
Post Procedure Progress Note Pre Procedure Diagnosis: (1) CKD (chronic kidney disease) stage 3, GFR 30-59 ml/min Post Procedure Diagnosis: (1) CKD (chronic kidney disease) stage 4, GFR 15-29 ml/min Procedure Date: Jan 03, 2017 Supervising Radiologist: Filiberto Rodarte Proceduralist/Assist: Radha Espana, RT(R)(CV), Ruthie Velasquez RT(R), Colten Saldivar RT(R)() Anesthesia: Local, Analgesia, Conscious Sedation Plan of Activity Patient to Unit: [facility] Patient Condition: Fair See PACS Report for procedural detail/treatment Central Venous Access Device Procedure 1 Right Internal Jugular Hemodialysis Catheter Tunneled Placement dual lumen [place]: 14 PICC Line Length (cm): 19 Filiberto Rodarte MD Jan 03, 2017 16:20
--- NOTE | 2017-01-03 16:26 | RADRPT ---
EXAM DATE/TIME: 01/03/2017 00:00 [facility] COMPARISON: No previous studies available for comparison. INDICATIONS : Patient with history of chronic renal disease in need of vascath removal prior to permcath placement. MEDICAL HISTORY : Asthma High cholesterol CVA Type 2 DM Headaches Hypertension L sided weakness s/p CVA SURGICAL HISTORY : Appendectomy Ruptured cerebral aneurysm Ventriculostomy ENCOUNTER: Initial ACUITY: > 1 year PAIN SCORE: 0/10 IMAGE SERIES: PROCEDURE : 1. Temporary central venous catheter removal. The prescribed catheter was removed intact and hemostasis was achieved with direct pressure. The sit e was dressed appropriately. The patient tolerated the procedure well. CONCLUSION: Uncomplicated catheter removal. Filiberto Rodarte MD on January 03, 2017 at 16:24 Board Certified Radiologist. This report was verified electronically.
--- NOTE | 2017-01-03 16:26 | RADRPT ---
EXAM DATE/TIME: 01/03/2017 14:27 [facility] COMPARISON: No previous studies available for comparison. INDICATIONS : Patient with history of chronic renal disease in need of permcath placement. MEDICAL HISTORY : Asthma High cholesterol CVA Type 2 DM Headaches Hypertension L sided weakness s/p CVA SURGICAL HISTORY : Appendectomy Ruptured cerebral aneurysm Ventriculostomy ENCOUNTER: Initial ACUITY: >1 year PAIN SCORE: 0/10 FLUORO TIME: 0.8 minutes IMAGE SERIES: 1 SEDATION TIME: 15 minutes ACCESS: Right internal jugular vein SEDATION: 1.) 1 mg midazolam (Versed) IV 2.) 50 mcg fentanyl (Sublimaze) IV Prophylactic antibiotics were administered with appropriate pre-procedure timing. Vancomycin within 2 hours of procedure, Ancef (or alternative) within 1 hour of procedure. DEVICE: 1. 15 [place] dual lumen 19 cm Collins II Plus catheter PROCEDURE : 1. Ultrasound-guided venipuncture. 2. PermaCath placement. 3. Conscious sedation with continuous EKG and oximetry monitoring. The risks, benefits and alternatives to the procedure were explained and verbal and written consent w as obtained. The site was prepped in sterile fashion. Full sterile technique was used, including ca p, mask, sterile gloves and gown and a large sterile sheet. Hand hygiene and 2% chlorhexidine and/or betadine/alcohol prep was utilized per protocol for cutaneous antisepsis. Sterile gel and sterile p robe cover were utilized for ultrasound guidance. The skin and subcutaneous tissues were infiltrated with local anesthetic solution. With ultrasound and fluoroscopic guidance a dermatotomy was created over the prescribed vein. A micr opuncture set was used to access the targeted vein and serial dilatation was performed to accept the prescribed length catheter. A subcutaneous tunnel was created in a retrograde fashion the catheter w as pulled through the tunnel. The catheter was flushed and assembled and locked with heparin. The c atheter was sutured in place. Conscious sedation was performed with the prescribed dosages and duration as above in the presence of an independent trained radiology nurse to assist in the monitoring of the patient. EKG and oximetry remained stable throughout the procedure. The patient tolerated the procedure well and there were n o complications. The patient was sent to post anesthesia recovery in stable condition. CONCLUSION: Uncomplicated PermaCath placement as above. Filiberto Rodarte MD on January 03, 2017 at 16:24 Board Certified Radiologist. This report was verified electronically.
--- NOTE | 2017-01-03 16:43 | RADRPT ---
EXAM DATE/TIME: 01/03/2017 13:28 [facility] COMPARISON: No previous studies available for comparison. INDICATIONS : Renal failure, evaluate for renal function. SEDATION TIME: 30 minutes BIOPSY SITE: Right renal MEDICATION(S): 1.) 50 mcg fentanyl (Sublimaze) IV DEVICE(S): 1.) 18 gauge Temno core biopsy needle 15cm MEDICAL HISTORY : Cardiovascular disease. Diabetes mellitus type 2. Renal failure, chronic. SURGICAL HISTORY : None. ENCOUNTER: Initial ACUITY: 1 day PAIN SCORE: 0/10 LOCATION: Right kidney A total of two core specimen(s) were obtained and sent to the laboratory for pathologic evaluation. PROCEDURE: 1. CT guided renal biopsy. 2. Conscious sedation with continuous EKG and oximetry monitoring. Prior to the procedure informed consent was obtained. Any appropriate prior imaging studies were rev iewed. Using automated exposure control and adjustment of the mA and/or kV according to patient size, radiat ion dose was kept as low as reasonably achievable to obtain optimal diagnostic quality images. DICOM format image data is available electronically for review and comparison. The site was prepped in a sterile fashion. Full sterile technique was used, including cap, mask, odilon rile gloves and gown and a large sterile sheet. Hand hygiene and 2% chlorhexidine and/or betadine/al cohol prep was utilized per protocol for cutaneous antisepsis. The skin and subcutaneous tissues wer e infiltrated with local anesthetic solution. With CT guidance the previously identified target was localized. Biopsy was performed using the presc ribed needle as above. Adequate hemostasis was obtained with compression at the puncture site. Follow-up CT scan reveals no hemorrhage. The patient tolerated the procedure well and there were no complications. The patient was returned to the Radiology Outpatient Unit in stable condition. CONCLUSION: Uncomplicated CT guided biopsy. Ji Cedillo MD on January 03, 2017 at 16:40 Board Certified Radiologist. This report was verified electronically.
--- NOTE | 2017-01-03 16:54 | HHI.NPPN ---
Subjective History of Present Illness 66-year-old male with past medical history of hypertension, diabetes mellitus, history of cerebrovascular accident with left-sided weakness, hyperlipidemia, bronchial asthma, chronic kidney disease who was admitted because of shortness of breath and chest pain. I was called to see the patient because of elevated BUN and creatinine. The patient was diagnosed here with non-ST elevation [place]. The patient has history of chronic kidney disease. Additional Remarks Patient is alert, seen after the PermCath, alert, no complain. Objective Data Data Vital Signs Date Time Temp Pulse Resp B/P (MAP) Pulse Ox O2 Delivery O2 Flow Rate FiO2 01/03/17 16:00 Nasal Cannula 2.00 01/03/17 16:00 65 18 132/75 (94) 97 01/03/17 15:45 Nasal Cannula 2.00 01/03/17 15:45 65 20 122/71 (88) 97 01/03/17 15:30 98.0 65 16 115/73 (87) 94 01/03/17 12:00 97.6 69 16 125/64 (84) 99 01/03/17 08:00 97.8 67 16 144/67 (92) 97 01/03/17 04:34 98.4 60 18 107/56 (73) 99 01/02/17 23:13 98.8 67 18 142/66 (91) 98 01/02/17 21:50 Nasal Cannula 2.00 01/02/17 20:42 99.1 72 18 119/58 (78) 99 01/02/17 20:32 73 -: 01/03/17 1510 01/01/17 0901 Physical Exam General Appearance: No Acute Distress, Comfortable Eyes Eye Exam: Pupils Equal Throat Throat Exam: Oral Mucosa [place] & Moist Neck Neck Exam: Neck Supple Pulmonary Resp Exam: No Distress, Rhonchi, Decreased Bases, Diminished Breath Sounds Cardiology CV Exam: Regular, Normal Sinus Rhythm Gastrointestinal/Abdomen GI Exam: Soft, Non-Tender, Bowel Sounds Present Extremeties Extremities Exam: Moderate Edema Neurologic Neuro Exam: Alert, Awake Psychiatric Psych Exam: Appropriate Responses Assessment/Plan Assessment Summary: WILLIE/Acute Renal Failure, CHF, CKD Stage IV Problem List: (1) NSTEMI (non-ST elevated myocardial infarction) ICD Codes: I21.4 - Non-ST elevation (NSTEMI) myocardial infarction Status: Resolved (2) Diabetes mellitus ICD Codes: E11.9 - Diabetes mellitus Status: Chronic (3) Asthma ICD Codes: J45.909 - Asthma Status: Chronic (4) Shortness of breath ICD Codes: R06.02 - Shortness of breath Status: Acute (5) Leg edema ICD Codes: R60.0 - Leg edema Status: Acute (6) Hypertension ICD Codes: I10 - Hypertension Status: Chronic (7) CKD (chronic kidney disease) stage 4, GFR 15-29 ml/min ICD Codes: N18.4 - Chronic kidney disease, stage 4 (severe) Status: Acute (8) ARF (acute renal failure) ICD Codes: N17.9 - ARF (acute renal failure) Status: Acute Plan Patient has been non oliguric, Creatinine is still elevated. K is normal, Follow urine out put and BMP. Has proteinuria, serology pending. Added Phoslo as Po4 is elevated and calcitriol as Calcium is low. BP is better. Follow urine out put and watch for any renal recovery. Got the PermCath , has poor flow from Vascath. Kidney Biopsy possibly tomorrow. HD is also due in AM. Problem Qualifiers (1) Diabetes mellitus: (2) Hypertension: Qualified Codes: I10 - Essential (primary) hypertension (3) ARF (acute renal failure): Zoey Carbone MD Jan 03, 2017 16:54
[2017-01-03] MEDS: CHLORHEXIDINE 0.12% (ORAL KIT) 15 ML CUP MT SCH (20:00)
[2017-01-03] MEDS: MORPHINE SULFATE 4 MG/ML INJ IV PUSH PRN (20:55)
[2017-01-03] MEDS: INSULIN DETEMIR 100 UNITS/ML VIAL SQ SCH (21:01)
[2017-01-04 00:02] VITALS: BP 133/64; PULSE 65; RESP 18; TEMP 97.8; O2SAT 99
[2017-01-04] MEDS: cloNIDine HCL 0.3 MG TAB PO SCH ×4 (00:20→23:15)
[2017-01-04] MEDS: CHLORHEXIDINE GLUCONATE 2 % 1 PACK (2 CLOTHS) TOP SCH (04:00)
[2017-01-04 04:38] VITALS: BP 124/62; PULSE 62; RESP 18; TEMP 98.2; O2SAT 98
[2017-01-04] MEDS: INSULIN NovoLIN REGULAR SUPPLEMENTAL SCALE SQ SCH ×5 (06:00→23:20)
[2017-01-04] MEDS: hydrALAZINE HCL 50 MG TAB PO SCH ×3 (07:17→21:00)
[2017-01-04 08:00] VITALS: BP 137/65; PULSE 61; PULSE 63; RESP 20; TEMP 97.9; O2SAT 98
[2017-01-04] MEDS ORDERED: INSULIN ASPART 1,000 UNITS/10 ML VIAL SQ SCH (08:00)
[2017-01-04] MEDS: CHLORHEXIDINE 0.12% (ORAL KIT) 15 ML CUP MT SCH ×2 (08:00→20:00)
[2017-01-04] MEDS: TAMSULOSIN HCL 0.4 MG CAP PO SCH (09:18)
[2017-01-04] MEDS: ASPIRIN 81 MG CHEW TAB CHEW SCH (09:18)
[2017-01-04] MEDS: CALCIUM ACETATE 667 MG CAP PO SCH ×3 (09:18→16:22)
[2017-01-04] MEDS: CALCITRIOL 0.25 MCG CAP PO SCH (09:18)
[2017-01-04] MEDS: CARVEDILOL 6.25 MG TAB PO SCH ×2 (09:18→20:59)
[2017-01-04] MEDS: MORPHINE SULFATE 4 MG/ML INJ IV PUSH PRN ×2 (09:19→16:23)
[2017-01-04] MEDS: SODIUM CHLORIDE 0.9% FLUSH 10 ML FLUSH IV FLUSH SCH ×2 (09:19→20:59)
[2017-01-04] MEDS: INSULIN ASPART 1,000 UNITS/10 ML VIAL SQ SCH ×3 (09:33→18:03)
[2017-01-04] MEDS: TIOTROPIUM BROMIDE 18 MCG INH INH SCH (09:36)
[2017-01-04] MEDS: ARTIFICIAL TEARS OPTH SOLN 15 ML BTL EACH EYE SCH ×3 (09:36→16:27)
[2017-01-04] MEDS: BUDESONIDE-FORMOTEROL 160/4.5 MCG INHALER INH SCH ×2 (09:37→20:59)
[2017-01-04] MEDS: SODIUM CHLORIDE 0.9% FLUSH 10 ML FLUSH IVF SCH (09:38)
--- NOTE | 2017-01-04 12:23 | HHI.NPPN ---
Subjective History of Present Illness 66-year-old male with past medical history of hypertension, diabetes mellitus, history of cerebrovascular accident with left-sided weakness, hyperlipidemia, bronchial asthma, chronic kidney disease who was admitted because of shortness of breath and chest pain. I was called to see the patient because of elevated BUN and creatinine. The patient was diagnosed here with non-ST elevation [place]. The patient has history of chronic kidney disease. Additional Remarks Patient is alert, seen during HD, no complain. Objective Data Data Vital Signs Date Time Temp Pulse Resp B/P (MAP) Pulse Ox O2 Delivery O2 Flow Rate FiO2 01/04/17 08:00 63 01/04/17 08:00 2.00 01/04/17 08:00 97.9 61 20 137/65 (89) 98 01/04/17 04:38 98.2 62 18 124/62 (82) 98 01/04/17 00:02 97.8 65 18 133/64 (87) 99 01/03/17 20:30 Nasal Cannula 2.00 21 01/03/17 20:27 98.0 71 18 142/65 (90) 98 01/03/17 17:42 100 Nasal Cannula 2.00 01/03/17 16:00 Nasal Cannula 2.00 01/03/17 16:00 97.2 66 17 119/66 (83) 100 01/03/17 16:00 65 18 132/75 (94) 97 01/03/17 15:45 Nasal Cannula 2.00 01/03/17 15:45 65 20 122/71 (88) 97 01/03/17 15:30 98.0 65 16 115/73 (87) 94 01/03/17 14:00 85 -: 01/03/17 1510 01/01/17 0901 Physical Exam General Appearance: No Acute Distress, Comfortable Eyes Eye Exam: Pupils Equal Throat Throat Exam: Oral Mucosa [place] & Moist Neck Neck Exam: Neck Supple Pulmonary Resp Exam: No Distress, Rhonchi, Decreased Bases, Diminished Breath Sounds Cardiology CV Exam: Regular, Normal Sinus Rhythm Gastrointestinal/Abdomen GI Exam: Soft, Non-Tender, Bowel Sounds Present Extremeties Extremities Exam: Moderate Edema Neurologic Neuro Exam: Alert, Awake Psychiatric Psych Exam: Appropriate Responses Assessment/Plan Assessment Summary: WILLIE/Acute Renal Failure, CHF, CKD Stage IV Problem List: (1) NSTEMI (non-ST elevated myocardial infarction) ICD Codes: I21.4 - Non-ST elevation (NSTEMI) myocardial infarction Status: Resolved (2) Diabetes mellitus ICD Codes: E11.9 - Diabetes mellitus Status: Chronic (3) Asthma ICD Codes: J45.909 - Asthma Status: Chronic (4) Shortness of breath ICD Codes: R06.02 - Shortness of breath Status: Acute (5) Leg edema ICD Codes: R60.0 - Leg edema Status: Acute (6) Hypertension ICD Codes: I10 - Hypertension Status: Chronic (7) CKD (chronic kidney disease) stage 4, GFR 15-29 ml/min ICD Codes: N18.4 - Chronic kidney disease, stage 4 (severe) Status: Acute (8) ARF (acute renal failure) ICD Codes: N17.9 - ARF (acute renal failure) Status: Acute Plan Patient has been non oliguric, Creatinine is still elevated. K is normal, Follow urine out put and BMP. Has proteinuria, serology pending. Added Phoslo as Po4 is elevated and calcitriol as Calcium is low. BP is better. Follow urine out put and watch for any renal recovery. Got the PermCath , has poor flow from Vascath. Kidney Biopsy done, follow up the results. HD to continue for now. Problem Qualifiers (1) Diabetes mellitus: (2) Hypertension: Qualified Codes: I10 - Essential (primary) hypertension (3) ARF (acute renal failure): Zoey Carbone MD Jan 04, 2017 12:23
[2017-01-04 14:39] LABS: APTT (PATIENT) 21.7 SEC (24.3-30.1); PROTHROMBIN TIME - PATIENT 10.7 SEC (9.8-11.6)
--- NOTE | 2017-01-04 14:49 | HHI.PR ---
Subjective Remarks ollow up for bilateral lower lobe pneumonia, WILLIE requiring HD, NSTEMI. Patient is currently doing well. He returned from dialysis today. No acute concerns. I discussed with his and son earlier. Per patient's his trying to get emergency Medicaid to help with his need for dialysis. Objective Vitals Vital Signs Date Time Temp Pulse Resp B/P (MAP) Pulse Ox O2 Delivery O2 Flow Rate FiO2 01/04/17 08:00 63 01/04/17 08:00 2.00 01/04/17 08:00 97.9 61 20 137/65 (89) 98 01/04/17 04:38 98.2 62 18 124/62 (82) 98 01/04/17 00:02 97.8 65 18 133/64 (87) 99 01/03/17 20:30 Nasal Cannula 2.00 21 01/03/17 20:27 98.0 71 18 142/65 (90) 98 01/03/17 17:42 100 Nasal Cannula 2.00 01/03/17 16:00 Nasal Cannula 2.00 01/03/17 16:00 97.2 66 17 119/66 (83) 100 01/03/17 16:00 65 18 132/75 (94) 97 01/03/17 15:45 Nasal Cannula 2.00 01/03/17 15:45 65 20 122/71 (88) 97 01/03/17 15:30 98.0 65 16 115/73 (87) 94 I/O 01/03/17 01/03/17 01/03/17 01/04/17 01/04/17 01/04/17 07:00 15:00 23:00 07:00 15:00 23:00 Intake Total 240 ml 960 ml 240 ml Output Total 0 ml 1500 ml Balance 240 ml 960 ml 240 ml -1500 ml Intake Oral 240 ml 960 ml 240 ml Output Urine Total 0 ml Hemodialysis 1500 ml # Voids 3 1 # Bowel Movements 1 0 Result Diagram: 01/03/17 1510 01/01/17 0901 Imaging Last Impressions Renal Biopsy CT 01/03/17 0000 Signed Impressions: Service Date/Time: Tuesday, January 03, 2017 13:28 - CONCLUSION: Uncomplicated CT guided biopsy. Ji Cedillo MD Central Venous Line 01/03/17 0000 Signed Impressions: Service Date/Time: Tuesday, January 03, 2017 00:00 - CONCLUSION: Uncomplicated catheter removal. Filiberto Rodarte MD Catheter Placement X-Ray 01/03/17 0000 Signed Impressions: Service Date/Time: Tuesday, January 03, 2017 14:27 - CONCLUSION: Uncomplicated PermaCath placement as above. Filiberto Rodarte MD Chest X-Ray 12/13/16 0600 Signed Impressions: Service Date/Time: Tuesday, December 13, 2016 04:54 - CONCLUSION: Persistent lobar consolidation left lower lung. Jose Roberto Cheema MD Chest CT 12/08/16 0000 Signed Impressions: Service Date/Time: Thursday, December 08, 2016 14:02 - CONCLUSION: 1. Bilateral lower lobe consolidating airspace disease. 2. Small to moderate bilateral pleural effusions; larger on the left. 3. Cardiomegaly. 4. Endotracheal and nasogastric tubes in good position. Tutu Christianson MD Renal Ultrasound 12/07/16 0000 Signed Impressions: Service Date/Time: November 07:54 - CONCLUSION: Unremarkable and stable bilateral renal ultrasound. No evidence of hydronephrosis. Baron Medrano MD Objective Remarks GENERAL: Alert, NAD. SKIN: Warm and dry. HEAD: Normocephalic. EYES: No scleral icterus. No injection or drainage. NECK: Supple, trachea midline. No JVD or lymphadenopathy. CARDIOVASCULAR: Regular rate and rhythm without murmurs, gallops, or rubs. RESPIRATORY: Breath sounds equal bilaterally. No accessory muscle use. GASTROINTESTINAL: Abdomen soft, non-tender, nondistended. MUSCULOSKELETAL: No cyanosis, or edema. BACK: Nontender without obvious deformity. No CVA tenderness. Procedures Echo 12/07/2016 Mildly dilated left ventricle. Wall thickness is normal. The left ventricular systolic function is normal with an estimated ejection fraction is 45-50%. There is distinct regional wall motion abnormalities with akinetic apex and possibly clot at the apex. Consider repeating study with contrast/Definity to better asses apex The right ventriclar size is upper limits of normal. The left atrial size is moderately dilated. The right atrial size is moderately dilated. [id number] mitral valve regurgitation. There is mild tricuspid valve regurgitation. There is estimated mild pulmonary hypertension present (range 40-50 mmHg). The pulmonary valve is not well visualized. The inferior vena cava is dilated. There is less than 50% respiratory change in dimension of the inferior vena cava (abnormal). A/P Problem List: (1) Respiratory failure ICD Code: J96.90 - Respiratory failure, unspecified, unspecified whether with hypoxia or hypercapnia Status: Acute (2) Sepsis ICD Code: A41.9 - Sepsis, unspecified organism Status: Acute (3) Pneumonia ICD Code: J18.9 - Pneumonia, unspecified organism Status: Acute (4) left atrial thrombus Status: Acute (5) NSTEMI (non-ST elevated myocardial infarction) ICD Code: I21.4 - Non-ST elevation (NSTEMI) myocardial infarction Status: Resolved (6) ARF (acute renal failure) ICD Code: N17.9 - ARF (acute renal failure) Status: Acute (7) Diabetes mellitus ICD Code: E11.9 - Diabetes mellitus Status: Chronic (8) Morbid obesity ICD Code: E66.01 - Morbid (severe) obesity due to excess calories Status: Acute (9) Severe chronic obstructive pulmonary disease ICD Code: J44.9 - Chronic obstructive pulmonary disease, unspecified Status: Acute (10) CKD (chronic kidney disease) stage 4, GFR 15-29 ml/min ICD Code: N18.4 - Chronic kidney disease, stage 4 (severe) Status: Acute Assessment and Plan Mr. Mehta is a 66-year-old male with medical history significant for hypertension and diabetes and CVA who presented to the hospital with a chief complaint of shortness of breath and chest pain. The patient was diagnosed with NSTEMI. Echo was performed which was concerning for thrombus, but study was limited and a repeat was suggested. He has history of chronic kidney disease but worsening of his creatinine was noted. He was seen and evaluated by nephrology who started the patient on hemodialysis. Kidney bx is planned. CKD stage IV with GFR 15-29. Acute renal failure - currently on hemodialysis. - PermaCath placed. He was complaining of pain earlier from Permacath area. However, currently he reports no pain. - Kidney biopsy on 01/05/2017. Nephrology following. Bilateral lower lobe pneumonias/community acquired - s/p abx treatment azithromycin and Rocephin - Urine culture negative for streptococcus and legionella - Sputum with normal respiratory shannan - Blood cultures negative to date COPD - Symbicort and Spiriva - Status post steroid taper NSTEMI LA thrombus Hypertension - Echo performed December 07 showed distinct regional wall abnormalities with a possible clot in the apex. - Dr. Chapin is out of town. He will likely need another echo with Definity contrast. - Heparin drip and Warfarin on hold. - ASA 81 mg daily. Coreg 6.25 mg BID. Norvasc 10 mg daily. Clonidine to 0.3 mg po TID and hydralazine 100 mg by mouth daily 8 hour Diabetes mellitus - Continue Levemir 30 units QHS and sliding scale insulin. - will add pre-meal insulin 5 units TIDAC BPH - continue Tamsulosin. Full code. Discussed with RN, Case management as well as and patient's son. Problem Qualifiers (1) Sepsis: (2) Pneumonia: (3) ARF (acute renal failure): (4) Diabetes mellitus: Zachary Man DO Jan 04, 2017 14:49
[2017-01-04 16:00] VITALS: BP 124/58; PULSE 66; RESP 20; TEMP 98; O2SAT 92
[2017-01-04 20:00] VITALS: BP 124/58; PULSE 58; PULSE 60; RESP 22; TEMP 98.4; O2SAT 95
[2017-01-04] MEDS: INSULIN DETEMIR 100 UNITS/ML VIAL SQ SCH (21:03)
[2017-01-04 23:13] VITALS: BP 130/65; PULSE 71; RESP 20; TEMP 98.1; O2SAT 99
[2017-01-05] VITALS (8 sets, daily range): BP systolic 108–184; BP diastolic 58–89; PULSE 61–78; RESP 19–22; TEMP 97.4–98.8; O2SAT 96–99
[2017-01-05] MEDS: CHLORHEXIDINE GLUCONATE 2 % 1 PACK (2 CLOTHS) TOP SCH (04:00)
[2017-01-05] MEDS: hydrALAZINE HCL 50 MG TAB PO SCH ×3 (05:49→21:25)
[2017-01-05] MEDS: INSULIN NovoLIN REGULAR SUPPLEMENTAL SCALE SQ SCH ×3 (05:54→16:52)
[2017-01-05] MEDS: INSULIN ASPART 1,000 UNITS/10 ML VIAL SQ SCH ×3 (08:00→17:26)
[2017-01-05] MEDS: CHLORHEXIDINE 0.12% (ORAL KIT) 15 ML CUP MT SCH ×2 (08:00→20:00)
[2017-01-05] MEDS: SODIUM CHLORIDE 0.9% FLUSH 10 ML FLUSH IVF SCH (09:00)
[2017-01-05] MEDS: ASPIRIN 81 MG CHEW TAB CHEW SCH (09:51)
[2017-01-05] MEDS: CARVEDILOL 6.25 MG TAB PO SCH ×2 (09:51→21:25)
[2017-01-05] MEDS: cloNIDine HCL 0.3 MG TAB PO SCH ×2 (09:52→16:50)
[2017-01-05] MEDS: CALCITRIOL 0.25 MCG CAP PO SCH (09:52)
[2017-01-05] MEDS: CALCIUM ACETATE 667 MG CAP PO SCH ×3 (09:52→16:50)
[2017-01-05] MEDS: TAMSULOSIN HCL 0.4 MG CAP PO SCH (09:52)
[2017-01-05] MEDS: MORPHINE SULFATE 4 MG/ML INJ IV PUSH PRN (09:53)
[2017-01-05] MEDS: SODIUM CHLORIDE 0.9% FLUSH 10 ML FLUSH IV FLUSH SCH ×2 (09:54→21:25)
[2017-01-05] MEDS: BUDESONIDE-FORMOTEROL 160/4.5 MCG INHALER INH SCH ×2 (09:54→21:25)
[2017-01-05] MEDS: ARTIFICIAL TEARS OPTH SOLN 15 ML BTL EACH EYE SCH ×3 (09:54→16:52)
[2017-01-05] MEDS: TIOTROPIUM BROMIDE 18 MCG INH INH SCH (09:54)
--- NOTE | 2017-01-05 15:56 | HHI.NPPN ---
Subjective History of Present Illness 66-year-old male with past medical history of hypertension, diabetes mellitus, history of cerebrovascular accident with left-sided weakness, hyperlipidemia, bronchial asthma, chronic kidney disease who was admitted because of shortness of breath and chest pain. I was called to see the patient because of elevated BUN and creatinine. The patient was diagnosed here with non-ST elevation [place]. The patient has history of chronic kidney disease. Additional Remarks Patient is alert, with nasal cannula, not in distress. Objective Data Data Vital Signs Date Time Temp Pulse Resp B/P (MAP) Pulse Ox O2 Delivery O2 Flow Rate FiO2 01/05/17 12:05 97.4 66 19 140/66 (90) 97 01/05/17 10:08 98 Nasal Cannula 2.00 01/05/17 08:05 98.8 72 22 138/68 (91) 96 01/05/17 08:00 69 01/05/17 08:00 Nasal Cannula 2.00 01/05/17 04:00 98.1 61 22 108/58 (75) 98 01/04/17 23:13 98.1 71 20 130/65 (86) 99 01/04/17 20:00 58 01/04/17 20:00 Room Air 01/04/17 20:00 98.4 60 22 124/58 (80) 95 01/04/17 16:00 98.0 66 20 124/58 (80) 92 -: 01/03/17 1510 01/01/17 0901 Physical Exam General Appearance: No Acute Distress, Comfortable Eyes Eye Exam: Pupils Equal Throat Throat Exam: Oral Mucosa [place] & Moist Neck Neck Exam: Neck Supple Pulmonary Resp Exam: No Distress, Rhonchi, Decreased Bases, Diminished Breath Sounds Cardiology CV Exam: Regular, Normal Sinus Rhythm Gastrointestinal/Abdomen GI Exam: Soft, Non-Tender, Bowel Sounds Present Extremeties Extremities Exam: Moderate Edema Neurologic Neuro Exam: Alert, Awake Psychiatric Psych Exam: Appropriate Responses Assessment/Plan Assessment Summary: WILLIE/Acute Renal Failure, CHF, CKD Stage IV Problem List: (1) NSTEMI (non-ST elevated myocardial infarction) ICD Codes: I21.4 - Non-ST elevation (NSTEMI) myocardial infarction Status: Resolved (2) Diabetes mellitus ICD Codes: E11.9 - Diabetes mellitus Status: Chronic (3) Asthma ICD Codes: J45.909 - Asthma Status: Chronic (4) Shortness of breath ICD Codes: R06.02 - Shortness of breath Status: Acute (5) Leg edema ICD Codes: R60.0 - Leg edema Status: Acute (6) Hypertension ICD Codes: I10 - Hypertension Status: Chronic (7) CKD (chronic kidney disease) stage 4, GFR 15-29 ml/min ICD Codes: N18.4 - Chronic kidney disease, stage 4 (severe) Status: Acute (8) ARF (acute renal failure) ICD Codes: N17.9 - ARF (acute renal failure) Status: Acute Plan Patient has been non oliguric, Creatinine is still elevated. K is normal, Follow urine out put and BMP. Has proteinuria, serology pending. Added Phoslo as Po4 is elevated and calcitriol as Calcium is low. BP is better. Follow urine out put and watch for any renal recovery. Got the PermCath , has poor flow from Vascath. I was called yesterday about the Kidney Biopsy showing Diabetic and Hypertensive renal disease. Has advance scaring, most likely will need senior living HD. Will need AVF. Problem Qualifiers (1) Diabetes mellitus: (2) Hypertension: Qualified Codes: I10 - Essential (primary) hypertension (3) ARF (acute renal failure): Zoey Carbone MD Jan 05, 2017 15:56
--- NOTE | 2017-01-05 19:46 | RADRPT ---
EXAM DATE/TIME: 01/05/2017 18:56 [facility] COMPARISON: No previous studies available for comparison. INDICATIONS : Left arm AV fistula placement. MEDICAL HISTORY : Hypercholesterolemia. Hypertension. Chronic obstructive pulmonary disease. Cerebrovascular accident. Asthma. Diabetes. SURGICAL HISTORY : Appendectomy. Ventriculostomy. Ruptured cerebral aneurysm repair. ENCOUNTER: Initial ACUITY: 1 day PAIN SCORE: 0/10 LOCATION: Left arm. FINDINGS: There is spontaneous flow documented in the brachial, basilic, cephalic, axillary, and subclavian vei ns. The vessels are compressible and augmentation response is documented. No filling defects are se en. The flow is phasic with respiration. Direction of flow in the jugular vein is caudal. CONCLUSION: Normal examination. Ji Martinez MD on January 05, 2017 at 19:44 Board Certified Radiologist. This report was verified electronically.
--- NOTE | 2017-01-05 19:50 | RADRPT ---
EXAM DATE/TIME: 01/05/2017 19:08 [facility] COMPARISON: No previous studies available for comparison. INDICATIONS : Left arm AV fistula placement. MEDICAL HISTORY : Hypercholesterolemia. Hypertension. Chronic obstructive pulmonary disease. Cerebrovascular accident. Asthma. Diabetes. SURGICAL HISTORY : Appendectomy. Ventriculostomy. Ruptured cerebral aneurysm repair. ENCOUNTER: Initial ACUITY: 1 day PAIN SCORE: 0/10 LOCATION: Left arm. CEPHALIC: ORIGIN: 3 mm MID-ARM: 2 mm ELBOW: 2 mm FOREARM: Non-visualized WRIST: Non-visualized BASILIC: ORIGIN: 4 mm MID-ARM: 2 mm ELBOW: 2 mm ARTERIES: BRACHIAL: 7 mm ULNAR: 3 mm RADIAL: 4 mm VEINS: RADIAL: 2 mm ULNAR: 1 mm FINDINGS: The venous system of the upper extremity is patent by color Doppler imaging. Measurements of the arm veins (in mm) are listed above. CONCLUSION: 1. Normal exam with measurements as above. Ji Martinez MD on January 05, 2017 at 19:45 Board Certified Radiologist. This report was verified electronically.
--- NOTE | 2017-01-05 20:37 | HHI.PR ---
Subjective Remarks Follow up for bilateral lower lobe pneumonia, WILLIE requiring HD, NSTEMI. Patient is doing well. Does not speak much. Denies any acute concerns. Afebrile. Objective Vitals Vital Signs Date Time Temp Pulse Resp B/P (MAP) Pulse Ox O2 Delivery O2 Flow Rate FiO2 01/05/17 17:52 97 Nasal Cannula 2.00 01/05/17 16:06 98.8 64 22 118/63 (81) 99 01/05/17 12:05 97.4 66 19 140/66 (90) 97 01/05/17 10:08 98 Nasal Cannula 2.00 01/05/17 08:05 98.8 72 22 138/68 (91) 96 01/05/17 08:00 69 01/05/17 08:00 Nasal Cannula 2.00 01/05/17 04:00 98.1 61 22 108/58 (75) 98 01/04/17 23:13 98.1 71 20 130/65 (86) 99 I/O 01/04/17 01/04/17 01/04/17 01/05/17 01/05/17 01/05/17 07:00 15:00 23:00 07:00 15:00 23:00 Intake Total 240 ml 720 ml 480 ml 280 ml Output Total 0 ml 1500 ml Balance 240 ml -1500 ml 720 ml 480 ml 280 ml Intake Oral 240 ml 720 ml 480 ml 280 ml Output Urine Total 0 ml Hemodialysis 1500 ml # Voids 2 2 0 # Bowel Movements 0 0 0 0 Result Diagram: 01/03/17 1510 01/01/17 0901 Objective Remarks GENERAL: Alert, NAD. SKIN: Warm and dry. HEAD: Normocephalic. EYES: No scleral icterus. No injection or drainage. NECK: Supple, trachea midline. No JVD or lymphadenopathy. CARDIOVASCULAR: Regular rate and rhythm without murmurs, gallops, or rubs. RESPIRATORY: Breath sounds equal bilaterally. No accessory muscle use. GASTROINTESTINAL: Abdomen soft, non-tender, nondistended. MUSCULOSKELETAL: No cyanosis, or edema. BACK: Nontender without obvious deformity. No CVA tenderness. Procedures Echo 12/07/2016 Mildly dilated left ventricle. Wall thickness is normal. The left ventricular systolic function is normal with an estimated ejection fraction is 45-50%. There is distinct regional wall motion abnormalities with akinetic apex and possibly clot at the apex. Consider repeating study with contrast/Definity to better asses apex The right ventriclar size is upper limits of normal. The left atrial size is moderately dilated. The right atrial size is moderately dilated. [id number] mitral valve regurgitation. There is mild tricuspid valve regurgitation. There is estimated mild pulmonary hypertension present (range 40-50 mmHg). The pulmonary valve is not well visualized. The inferior vena cava is dilated. There is less than 50% respiratory change in dimension of the inferior vena cava (abnormal). A/P Problem List: (1) Respiratory failure ICD Code: J96.90 - Respiratory failure, unspecified, unspecified whether with hypoxia or hypercapnia Status: Acute (2) Sepsis ICD Code: A41.9 - Sepsis, unspecified organism Status: Acute (3) Pneumonia ICD Code: J18.9 - Pneumonia, unspecified organism Status: Acute (4) left atrial thrombus Status: Acute (5) NSTEMI (non-ST elevated myocardial infarction) ICD Code: I21.4 - Non-ST elevation (NSTEMI) myocardial infarction Status: Resolved (6) ARF (acute renal failure) ICD Code: N17.9 - ARF (acute renal failure) Status: Acute (7) Diabetes mellitus ICD Code: E11.9 - Diabetes mellitus Status: Chronic (8) Morbid obesity ICD Code: E66.01 - Morbid (severe) obesity due to excess calories Status: Acute (9) Severe chronic obstructive pulmonary disease ICD Code: J44.9 - Chronic obstructive pulmonary disease, unspecified Status: Acute (10) CKD (chronic kidney disease) stage 4, GFR 15-29 ml/min ICD Code: N18.4 - Chronic kidney disease, stage 4 (severe) Status: Acute Assessment and Plan Mr. Mehta is a 66-year-old male with medical history significant for hypertension and diabetes and CVA who presented to the hospital with a chief complaint of shortness of breath and chest pain. The patient was diagnosed with NSTEMI. Echo was performed which was concerning for thrombus, but study was limited and a repeat was suggested. He has history of chronic kidney disease but worsening of his creatinine was noted. He was seen and evaluated by nephrology who started the patient on hemodialysis. Kidney bx is planned. CKD stage IV with GFR 15-29. Acute renal failure - currently on hemodialysis. - PermaCath placed. - Kidney biopsy on 01/03/2017. Nephrology following. Bilateral lower lobe pneumonias/community acquired - s/p abx treatment azithromycin and Rocephin - Urine culture negative for streptococcus and legionella - Sputum with normal respiratory shannan - Blood cultures negative to date COPD - Symbicort and Spiriva - Continue albuterol neb. NSTEMI LA thrombus Hypertension - Echo performed December 07 showed distinct regional wall abnormalities with a possible clot in the apex. - echo with Definity contrast pending. - Heparin drip and Warfarin on hold. - ASA 81 mg daily. Coreg 6.25 mg BID. Norvasc 10 mg daily. Clonidine to 0.3 mg po TID and hydralazine 100 mg by mouth daily 8 hour Diabetes mellitus - Continue Levemir 30 units QHS and sliding scale insulin. - pre-meal insulin 5 units TIDAC BPH - continue Tamsulosin. Full code. Problem Qualifiers (1) Sepsis: (2) Pneumonia: (3) ARF (acute renal failure): (4) Diabetes mellitus: Zachary Man DO Jan 05, 2017 20:37
[2017-01-05] MEDS: INSULIN DETEMIR 100 UNITS/ML VIAL SQ SCH (21:00)
[2017-01-06] VITALS (7 sets, daily range): BP systolic 122–153; BP diastolic 59–71; PULSE 70–97; RESP 18–24; TEMP 98.2–99.2; O2SAT 93–100
[2017-01-06] MEDS: cloNIDine HCL 0.3 MG TAB PO SCH ×4 (00:38→23:53)
--- NOTE | 2017-01-06 03:08 | ECHRPT ---
Indication: ECHO W/DEFINITY, R/O CLOT CONCLUSIONS Contrast enhanced echocardiography was utilized for improved endocardial border definition. The left ventricular systolic function is grossly normal on limited imaging. BP: 137 / 65 HR: 71 Rhythm: Sinus Technical Quality:Good FINDINGS LEFT VENTRICLE Contrast enhanced echocardiography was utilized for improved endocardial border definition. The left ventricular systolic function is grossly normal on limited imaging. Mayito Courtney MD (Electronically Signed) Final Date:06 January 2017 03:06
[2017-01-06] MEDS: CHLORHEXIDINE GLUCONATE 2 % 1 PACK (2 CLOTHS) TOP SCH (04:00)
[2017-01-06] MEDS: INSULIN NovoLIN REGULAR SUPPLEMENTAL SCALE SQ SCH ×5 (06:00→23:57)
[2017-01-06] MEDS: hydrALAZINE HCL 50 MG TAB PO SCH ×3 (06:32→21:26)
[2017-01-06] MEDS: INSULIN ASPART 1,000 UNITS/10 ML VIAL SQ SCH ×3 (08:00→18:29)
[2017-01-06] MEDS: SODIUM CHLORIDE 0.9% FLUSH 10 ML FLUSH IVF SCH (09:00)
[2017-01-06] MEDS: ARTIFICIAL TEARS OPTH SOLN 15 ML BTL EACH EYE SCH ×3 (09:00→18:00)
[2017-01-06] MEDS: CALCITRIOL 0.25 MCG CAP PO SCH (09:00)
[2017-01-06] MEDS: RESP: ALBUTEROL 2.5 MG/3 ML NEB (PRN) NEB (09:41)
--- NOTE | 2017-01-06 09:45 | HHI.NPPN ---
Subjective History of Present Illness 66-year-old male with past medical history of hypertension, diabetes mellitus, history of cerebrovascular accident with left-sided weakness, hyperlipidemia, bronchial asthma, chronic kidney disease who was admitted because of shortness of breath and chest pain. I was called to see the patient because of elevated BUN and creatinine. The patient was diagnosed here with non-ST elevation [place]. The patient has history of chronic kidney disease. Additional Remarks Patient is alert, with nasal cannula, not in distress. Objective Data Data Vital Signs Date Time Temp Pulse Resp B/P (MAP) Pulse Ox O2 Delivery O2 Flow Rate FiO2 01/06/17 04:00 98.6 70 20 122/59 (80) 95 01/06/17 00:00 98.5 74 20 123/64 (83) 96 01/05/17 20:00 98.6 78 19 127/63 (84) 98 01/05/17 19:30 Room Air 01/05/17 17:52 97 Nasal Cannula 2.00 01/05/17 16:06 98.8 64 22 118/63 (81) 99 01/05/17 12:05 97.4 66 19 140/66 (90) 97 01/05/17 10:08 98 Nasal Cannula 2.00 -: 01/03/17 1510 Physical Exam General Appearance: No Acute Distress, Comfortable Eyes Eye Exam: Pupils Equal Throat Throat Exam: Oral Mucosa [place] & Moist Neck Neck Exam: Neck Supple Pulmonary Resp Exam: No Distress, Rhonchi, Decreased Bases, Diminished Breath Sounds Cardiology CV Exam: Regular, Normal Sinus Rhythm Gastrointestinal/Abdomen GI Exam: Soft, Non-Tender, Bowel Sounds Present Extremeties Extremities Exam: Moderate Edema Neurologic Neuro Exam: Alert, Awake Psychiatric Psych Exam: Appropriate Responses Assessment/Plan Assessment Summary: WILLIE/Acute Renal Failure, CHF, CKD Stage IV Problem List: (1) NSTEMI (non-ST elevated myocardial infarction) ICD Codes: I21.4 - Non-ST elevation (NSTEMI) myocardial infarction Status: Resolved (2) Diabetes mellitus ICD Codes: E11.9 - Diabetes mellitus Status: Chronic (3) Asthma ICD Codes: J45.909 - Asthma Status: Chronic (4) Shortness of breath ICD Codes: R06.02 - Shortness of breath Status: Acute (5) Leg edema ICD Codes: R60.0 - Leg edema Status: Acute (6) Hypertension ICD Codes: I10 - Hypertension Status: Chronic (7) CKD (chronic kidney disease) stage 4, GFR 15-29 ml/min ICD Codes: N18.4 - Chronic kidney disease, stage 4 (severe) Status: Acute (8) ARF (acute renal failure) ICD Codes: N17.9 - ARF (acute renal failure) Status: Acute Plan Patient has been non oliguric, Creatinine is still elevated. K is normal, Follow urine out put and BMP. Has proteinuria, serology pending. Added Phoslo as Po4 is elevated and calcitriol as Calcium is low. BP is better. Follow urine out put and watch for any renal recovery. Got the PermCath , has poor flow from Vascath. I was called yesterday about the Kidney Biopsy showing Diabetic and Hypertensive renal disease. he is seen during dialysis UF 2KG 2 K bath Problem Qualifiers (1) Diabetes mellitus: (2) Hypertension: Qualified Codes: I10 - Essential (primary) hypertension (3) ARF (acute renal failure): Shawn Nye MD Jan 06, 2017 09:45
[2017-01-06] MEDS: HEPARIN SODIUM - IV 10,000 UNITS/10 ML VIAL IVF PRN (10:58)
[2017-01-06] MEDS: GENTAMICIN SULFATE (DIALYSIS USE ONLY) 20 MG/2 ML VIAL IV PRN (10:58)
[2017-01-06] MEDS: EPOETIN ALFA 10,000 UNITS/ML VIAL IV PRN (10:58)
[2017-01-06] MEDS: CALCIUM ACETATE 667 MG CAP PO SCH ×3 (13:00→18:32)
[2017-01-06] MEDS: CARVEDILOL 6.25 MG TAB PO SCH ×2 (14:18→20:44)
[2017-01-06] MEDS: ASPIRIN 81 MG CHEW TAB CHEW SCH (14:18)
[2017-01-06] MEDS: SODIUM CHLORIDE 0.9% FLUSH 10 ML FLUSH IV FLUSH SCH ×2 (14:19→20:44)
[2017-01-06] MEDS: TAMSULOSIN HCL 0.4 MG CAP PO SCH (14:19)
[2017-01-06] MEDS: BUDESONIDE-FORMOTEROL 160/4.5 MCG INHALER INH SCH ×2 (14:22→20:44)
[2017-01-06] MEDS: TIOTROPIUM BROMIDE 18 MCG INH INH SCH (14:23)
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
[2017-01-06] MEDS: CHLORHEXIDINE 0.12% (ORAL KIT) 15 ML CUP MT SCH (20:00)
[2017-01-06] MEDS: INSULIN DETEMIR 100 UNITS/ML VIAL SQ SCH (20:48)
--- NOTE | 2017-01-06 21:57 | HHI.PR ---
Subjective Remarks Follow up for bilateral lower lobe pneumonia, WILLIE requiring HD, NSTEMI. Patient was seen around 4:30PM. Patient is doing well. Underwent dialysis today. Denies any fever, chills, pain. Objective Vitals Vital Signs Date Time Temp Pulse Resp B/P (MAP) Pulse Ox O2 Delivery O2 Flow Rate FiO2 01/06/17 16:00 99.2 97 24 153/69 (97) 97 01/06/17 13:31 96 Nasal Cannula 2.00 01/06/17 12:54 98.8 88 22 140/62 (88) 96 01/06/17 08:00 Room Air 01/06/17 08:00 98.8 76 24 124/63 (83) 94 01/06/17 04:00 98.6 70 20 122/59 (80) 95 01/06/17 00:00 98.5 74 20 123/64 (83) 96 I/O 01/05/17 01/05/17 01/05/17 01/06/17 01/06/17 01/06/17 06:59 14:59 22:59 06:59 14:59 22:59 Intake Total 480 ml 280 ml 100 ml 500 ml Output Total 1700 ml Balance 480 ml 280 ml 100 ml -1700 ml 500 ml Intake Oral 480 ml 280 ml 100 ml 500 ml Hemodialysis 1700 ml # Voids 2 0 2 2 # Bowel Movements 0 0 0 0 Result Diagram: 01/03/17 1510 Objective Remarks GENERAL: Alert, NAD. SKIN: Warm and dry. HEAD: Normocephalic. EYES: No scleral icterus. No injection or drainage. NECK: Supple, trachea midline. No JVD or lymphadenopathy. CARDIOVASCULAR: Regular rate and rhythm without murmurs, gallops, or rubs. RESPIRATORY: Breath sounds equal bilaterally. No accessory muscle use. GASTROINTESTINAL: Abdomen soft, non-tender, nondistended. MUSCULOSKELETAL: No cyanosis, or edema. BACK: Nontender without obvious deformity. No CVA tenderness. Procedures Echo 12/07/2016 Mildly dilated left ventricle. Wall thickness is normal. The left ventricular systolic function is normal with an estimated ejection fraction is 45-50%. There is distinct regional wall motion abnormalities with akinetic apex and possibly clot at the apex. Consider repeating study with contrast/Definity to better asses apex The right ventriclar size is upper limits of normal. The left atrial size is moderately dilated. The right atrial size is moderately dilated. Sxos-bn-[id number] mitral valve regurgitation. There is mild tricuspid valve regurgitation. There is estimated mild pulmonary hypertension present (range 40-50 mmHg). The pulmonary valve is not well visualized. The inferior vena cava is dilated. There is less than 50% respiratory change in dimension of the inferior vena cava (abnormal). A/P Problem List: (1) Respiratory failure ICD Code: J96.90 - Respiratory failure, unspecified, unspecified whether with hypoxia or hypercapnia Status: Acute (2) Sepsis ICD Code: A41.9 - Sepsis, unspecified organism Status: Acute (3) Pneumonia ICD Code: J18.9 - Pneumonia, unspecified organism Status: Acute (4) left atrial thrombus Status: Acute (5) NSTEMI (non-ST elevated myocardial infarction) ICD Code: I21.4 - Non-ST elevation (NSTEMI) myocardial infarction Status: Resolved (6) ARF (acute renal failure) ICD Code: N17.9 - ARF (acute renal failure) Status: Acute (7) Diabetes mellitus ICD Code: E11.9 - Diabetes mellitus Status: Chronic (8) Morbid obesity ICD Code: E66.01 - Morbid (severe) obesity due to excess calories Status: Acute (9) Severe chronic obstructive pulmonary disease ICD Code: J44.9 - Chronic obstructive pulmonary disease, unspecified Status: Acute (10) CKD (chronic kidney disease) stage 4, GFR 15-29 ml/min ICD Code: N18.4 - Chronic kidney disease, stage 4 (severe) Status: Acute Assessment and Plan Mr. Mehta is a 66-year-old male with medical history significant for hypertension and diabetes and CVA who presented to the hospital with a chief complaint of shortness of breath and chest pain. The patient was diagnosed with NSTEMI. Echo was performed which was concerning for thrombus, but study was limited and a repeat was suggested. He has history of chronic kidney disease but worsening of his creatinine was noted. He was seen and evaluated by nephrology who started the patient on hemodialysis. Kidney bx is planned. CKD stage IV with GFR 15-29. Acute renal failure - currently on hemodialysis. - PermaCath placed. - Kidney biopsy on 01/03/2017. Nephrology following. Bilateral lower lobe pneumonias/community acquired - s/p abx treatment azithromycin and Rocephin - Urine culture negative for streptococcus and legionella - Sputum with normal respiratory shannan - Blood cultures negative to date COPD - Symbicort and Spiriva - Continue albuterol neb. NSTEMI Hypertension - Echo performed December 07 showed distinct regional wall abnormalities with a possible clot in the apex. - echo with Definity contrast does not appear to show any clots in LV. - Heparin drip and Warfarin on hold. - ASA 81 mg daily. Coreg 6.25 mg BID. Norvasc 10 mg daily. Clonidine to 0.3 mg po TID and hydralazine 100 mg by mouth daily 8 hour Diabetes mellitus - Continue Levemir 30 units QHS and sliding scale insulin. - pre-meal insulin 5 units TIDAC BPH - continue Tamsulosin. Full code. Will d/c heparin, warfarin (which are on hold) and start patient on Heparin SQ for DVT prophylaxis. Problem Qualifiers (1) Sepsis: (2) Pneumonia: (3) ARF (acute renal failure): (4) Diabetes mellitus: Zachary Man DO Jan 06, 2017 21:57
[2017-01-06 22:45] LABS: AUTOMATED NEUTROPHIL # 1.7 TH/MM3 (1.8-7.7); BASOPHIL % 1.1 % (0.0-2.0); EOSINOPHIL # 0.2 TH/MM3 (0-0.4); HEMO FLAGS DIFF FINAL; LYMPH % 27.9 % (9.0-44.0); LYMPHOCYTE # 1.1 TH/MM3 (1.0-4.8); MEAN CELL VOLUME 88.5 FL (80.0-100.0); MEAN CORPUSCULAR HEMOGLOBIN 29.5 PG (27.0-34.0); MEAN CORPUSCULAR HGB CONC 33.3 % (32.0-36.0); MONO % 23.6 % (0.0-8.0); NEUT % 42.4 % (16.0-70.0); PLATELET COUNT 289 TH/MM3 (150-450); RED BLOOD COUNT 3.17 MIL/MM3 (4.50-5.90); RED CELL DISTRIBUTION WIDTH 15.8 % (11.6-17.2); WHITE BLOOD COUNT 3.9 TH/MM3 (4.0-11.0)
[2017-01-06 23:12] LABS: BICARBONATE 31.4 MEQ/L (21.0-32.0); POTASSIUM 4.3 MEQ/L (3.5-5.1)
[2017-01-07] VITALS (9 sets, daily range): BP systolic 109–146; BP diastolic 61–70; PULSE 66–92; RESP 16–20; TEMP 98.1–99.3; O2SAT 95–99
[2017-01-07] MEDS: CHLORHEXIDINE GLUCONATE 2 % 1 PACK (2 CLOTHS) TOP SCH (04:00)
[2017-01-07] MEDS: hydrALAZINE HCL 50 MG TAB PO SCH ×3 (05:31→21:12)
[2017-01-07] MEDS: INSULIN NovoLIN REGULAR SUPPLEMENTAL SCALE SQ SCH ×4 (05:39→23:46)
[2017-01-07] MEDS: cloNIDine HCL 0.3 MG TAB PO SCH ×3 (08:00→23:47)
[2017-01-07] MEDS: CHLORHEXIDINE 0.12% (ORAL KIT) 15 ML CUP MT SCH ×2 (08:00→20:00)
[2017-01-07] MEDS: INSULIN ASPART 1,000 UNITS/10 ML VIAL SQ SCH ×3 (08:00→17:24)
--- NOTE | 2017-01-07 08:12 | HHI.PR ---
Subjective Remarks Follow up for bilateral lower lobe pneumonia, WILLIE requiring HD, NSTEMI. Patient is currently doing well. He does not speak much. No fever or chills. Tolerating diet well. Objective Vitals Vital Signs Date Time Temp Pulse Resp B/P (MAP) Pulse Ox O2 Delivery O2 Flow Rate FiO2 01/07/17 04:50 98.2 71 20 117/61 (79) 96 01/07/17 01:04 98.3 66 20 120/64 (82) 97 01/06/17 20:00 98.2 79 18 141/71 (94) 100 01/06/17 20:00 Room Air 01/06/17 20:00 82 01/06/17 16:00 99.2 97 24 153/69 (97) 97 01/06/17 13:31 96 Nasal Cannula 2.00 01/06/17 12:54 98.8 88 22 140/62 (88) 96 I/O 01/06/17 01/06/17 01/06/17 01/07/17 01/07/17 01/07/17 06:59 14:59 22:59 06:59 14:59 22:59 Intake Total 100 ml 500 ml 200 ml Output Total 1700 ml Balance 100 ml -1700 ml 500 ml 200 ml Intake Oral 100 ml 500 ml 200 ml IV Total 0 ml Hemodialysis 1700 ml # Voids 2 2 3 # Bowel Movements 0 0 0 Result Diagram: 01/06/17222601/06/172226 Imaging Last Impressions Upper Extremity Ultrasound 01/05/17 0000 Signed Impressions: Service Date/Time: Thursday, January 05, 2017 18:56 - CONCLUSION: Normal examination. Ji Martinez MD Renal Biopsy CT 01/03/17 0000 Signed Impressions: Service Date/Time: Tuesday, January 03, 2017 13:28 - CONCLUSION: Uncomplicated CT guided biopsy. Ji Cedillo MD Central Venous Line 01/03/17 0000 Signed Impressions: Service Date/Time: Tuesday, January 03, 2017 00:00 - CONCLUSION: Uncomplicated catheter removal. Filiberto Rodarte MD Catheter Placement X-Ray 01/03/17 0000 Signed Impressions: Service Date/Time: Tuesday, January 03, 2017 14:27 - CONCLUSION: Uncomplicated PermaCath placement as above. Filiberto Rodarte MD Chest X-Ray 12/13/16 0600 Signed Impressions: Service Date/Time: Tuesday, December 13, 2016 04:54 - CONCLUSION: Persistent lobar consolidation left lower lung. Jose Roberto Cheema MD Chest CT 12/08/16 0000 Signed Impressions: Service Date/Time: Thursday, December 08, 2016 14:02 - CONCLUSION: 1. Bilateral lower lobe consolidating airspace disease. 2. Small to moderate bilateral pleural effusions; larger on the left. 3. Cardiomegaly. 4. Endotracheal and nasogastric tubes in good position. Tutu Christianson MD Renal Ultrasound 12/07/16 0000 Signed Impressions: Service Date/Time: November 07:54 - CONCLUSION: Unremarkable and stable bilateral renal ultrasound. No evidence of hydronephrosis. Baron Medrano MD Objective Remarks GENERAL: Alert, NAD. SKIN: Warm and dry. HEAD: Normocephalic. EYES: No scleral icterus. No injection or drainage. NECK: Supple, trachea midline. No JVD or lymphadenopathy. CARDIOVASCULAR: Regular rate and rhythm without murmurs, gallops, or rubs. RESPIRATORY: Breath sounds equal bilaterally. No accessory muscle use. GASTROINTESTINAL: Abdomen soft, non-tender, nondistended. MUSCULOSKELETAL: No cyanosis, or edema. BACK: Nontender without obvious deformity. No CVA tenderness. Procedures Echo 12/07/2016 Mildly dilated left ventricle. Wall thickness is normal. The left ventricular systolic function is normal with an estimated ejection fraction is 45-50%. There is distinct regional wall motion abnormalities with akinetic apex and possibly clot at the apex. Consider repeating study with contrast/Definity to better asses apex The right ventriclar size is upper limits of normal. The left atrial size is moderately dilated. The right atrial size is moderately dilated. Awvb-oj-flysawqn mitral valve regurgitation. There is mild tricuspid valve regurgitation. There is estimated mild pulmonary hypertension present (range 40-50 mmHg). The pulmonary valve is not well visualized. The inferior vena cava is dilated. There is less than 50% respiratory change in dimension of the inferior vena cava (abnormal). A/P Problem List: (1) Respiratory failure ICD Code: J96.90 - Respiratory failure, unspecified, unspecified whether with hypoxia or hypercapnia Status: Acute (2) Sepsis ICD Code: A41.9 - Sepsis, unspecified organism Status: Acute (3) Pneumonia ICD Code: J18.9 - Pneumonia, unspecified organism Status: Acute (4) left atrial thrombus Status: Acute (5) NSTEMI (non-ST elevated myocardial infarction) ICD Code: I21.4 - Non-ST elevation (NSTEMI) myocardial infarction Status: Resolved (6) ARF (acute renal failure) ICD Code: N17.9 - ARF (acute renal failure) Status: Acute (7) Diabetes mellitus ICD Code: E11.9 - Diabetes mellitus Status: Chronic (8) Morbid obesity ICD Code: E66.01 - Morbid (severe) obesity due to excess calories Status: Acute (9) Severe chronic obstructive pulmonary disease ICD Code: J44.9 - Chronic obstructive pulmonary disease, unspecified Status: Acute (10) CKD (chronic kidney disease) stage 4, GFR 15-29 ml/min ICD Code: N18.4 - Chronic kidney disease, stage 4 (severe) Status: Acute Assessment and Plan Mr. Mehta is a 66-year-old male with medical history significant for hypertension and diabetes and CVA who presented to the hospital with a chief complaint of shortness of breath and chest pain. The patient was diagnosed with NSTEMI. Echo was performed which was concerning for thrombus, but study was limited and a repeat was suggested. He has history of chronic kidney disease but worsening of his creatinine was noted. He was seen and evaluated by nephrology who started the patient on hemodialysis. Kidney bx is planned. CKD stage IV with GFR 15-29. Acute renal failure - currently on hemodialysis. - PermaCath placed. - Kidney biopsy on 01/03/2017 --> diffuse and nodular diabetic glomerulosclerosis , segmental and global glomerular sclerosis, interstitial fibrosis and tubular atrophy severe. Bilateral lower lobe pneumonias/community acquired - s/p abx treatment azithromycin and Rocephin - Urine culture negative for streptococcus and legionella - Sputum with normal respiratory shannan - Blood cultures negative to date COPD - Symbicort and Spiriva - Continue albuterol neb. NSTEMI Hypertension - Echo performed December 07 showed distinct regional wall abnormalities with a possible clot in the apex. - echo with Definity contrast does not appear to show any clots in LV. - We discontinued heparin and warfarin which were on hold. - ASA 81 mg daily. Coreg 6.25 mg BID. Norvasc 10 mg daily. Clonidine to 0.3 mg po TID and hydralazine 100 mg by mouth daily 8 hour Diabetes mellitus - Continue Levemir 30 units QHS and sliding scale insulin. - pre-meal insulin 5 units TIDAC BPH - continue Tamsulosin. Full code. Heparin SQ for DVT prophylaxis. Problem Qualifiers (1) Sepsis: (2) Pneumonia: (3) ARF (acute renal failure): (4) Diabetes mellitus: Zachary Man DO Jan 07, 2017 08:12
[2017-01-07] MEDS: ARTIFICIAL TEARS OPTH SOLN 15 ML BTL EACH EYE SCH ×3 (09:00→17:28)
[2017-01-07] MEDS: TIOTROPIUM BROMIDE 18 MCG INH INH SCH (09:00)
[2017-01-07] MEDS: SODIUM CHLORIDE 0.9% FLUSH 10 ML FLUSH IVF SCH (09:00)
[2017-01-07] MEDS: CALCIUM ACETATE 667 MG CAP PO SCH ×3 (10:48→17:22)
[2017-01-07] MEDS: TAMSULOSIN HCL 0.4 MG CAP PO SCH (10:48)
[2017-01-07] MEDS: HEPARIN SODIUM - SQ 10,000 UNITS/ML VIAL SQ SCH ×2 (10:49→21:13)
[2017-01-07] MEDS: CALCITRIOL 0.25 MCG CAP PO SCH (10:49)
[2017-01-07] MEDS: SODIUM CHLORIDE 0.9% FLUSH 10 ML FLUSH IV FLUSH SCH ×2 (10:49→21:13)
[2017-01-07] MEDS: CARVEDILOL 6.25 MG TAB PO SCH ×2 (10:49→21:12)
[2017-01-07] MEDS: ASPIRIN 81 MG CHEW TAB CHEW SCH (10:50)
[2017-01-07] MEDS: BUDESONIDE-FORMOTEROL 160/4.5 MCG INHALER INH SCH ×2 (10:52→21:13)
[2017-01-07] MEDS: INSULIN DETEMIR 100 UNITS/ML VIAL SQ SCH (21:18)
[2017-01-08] VITALS (7 sets, daily range): BP systolic 115–167; BP diastolic 58–84; PULSE 59–92; RESP 16–20; TEMP 98–98.5; O2SAT 95–100
[2017-01-08] MEDS: CHLORHEXIDINE GLUCONATE 2 % 1 PACK (2 CLOTHS) TOP SCH (04:00)
[2017-01-08] MEDS: hydrALAZINE HCL 50 MG TAB PO SCH ×3 (05:58→20:55)
[2017-01-08] MEDS: INSULIN NovoLIN REGULAR SUPPLEMENTAL SCALE SQ SCH ×4 (05:58→23:36)
[2017-01-08] MEDS: INSULIN ASPART 1,000 UNITS/10 ML VIAL SQ SCH ×3 (08:00→17:00)
[2017-01-08] MEDS: CHLORHEXIDINE 0.12% (ORAL KIT) 15 ML CUP MT SCH ×2 (08:00→20:00)
[2017-01-08] MEDS: TAMSULOSIN HCL 0.4 MG CAP PO SCH (08:42)
[2017-01-08] MEDS: ASPIRIN 81 MG CHEW TAB CHEW SCH (08:42)
[2017-01-08] MEDS: CARVEDILOL 6.25 MG TAB PO SCH ×2 (08:42→20:54)
[2017-01-08] MEDS: CALCIUM ACETATE 667 MG CAP PO SCH ×3 (08:42→17:10)
[2017-01-08] MEDS: CALCITRIOL 0.25 MCG CAP PO SCH (08:42)
[2017-01-08] MEDS: cloNIDine HCL 0.3 MG TAB PO SCH ×3 (08:42→23:43)
[2017-01-08] MEDS: TIOTROPIUM BROMIDE 18 MCG INH INH SCH (08:43)
[2017-01-08] MEDS: HEPARIN SODIUM - SQ 10,000 UNITS/ML VIAL SQ SCH ×2 (08:43→20:57)
[2017-01-08] MEDS: BUDESONIDE-FORMOTEROL 160/4.5 MCG INHALER INH SCH ×2 (08:43→20:58)
[2017-01-08] MEDS: SODIUM CHLORIDE 0.9% FLUSH 10 ML FLUSH IV FLUSH SCH ×2 (08:43→20:57)
[2017-01-08] MEDS: ARTIFICIAL TEARS OPTH SOLN 15 ML BTL EACH EYE SCH ×3 (08:44→17:11)
--- NOTE | 2017-01-08 14:05 | HHI.PR ---
Subjective Remarks Follow up for bilateral lower lobe pneumonia, WILLIE requiring HD, NSTEMI. Patient is doing well. No acute concerns. Objective Vitals Vital Signs Date Time Temp Pulse Resp B/P (MAP) Pulse Ox O2 Delivery O2 Flow Rate FiO2 01/08/17 12:00 98.5 59 18 116/59 (78) 98 01/08/17 08:00 63 01/08/17 08:00 Nasal Cannula 2.00 21 01/08/17 08:00 98.0 65 18 124/65 (84) 95 01/08/17 04:00 98.5 61 16 115/58 (77) 100 01/08/17 04:00 Nasal Cannula 2.00 01/08/17 00:00 98.0 66 16 118/59 (78) 99 01/08/17 00:00 Nasal Cannula 2.00 01/07/17 23:44 98.4 75 20 126/70 (88) 98 01/07/17 20:35 Nasal Cannula 2.00 01/07/17 20:25 70 01/07/17 20:00 Nasal Cannula 2.00 01/07/17 20:00 98.6 71 16 122/61 (81) 98 01/07/17 17:33 98 Nasal Cannula 2.00 01/07/17 16:00 98.1 78 18 131/66 (87) 95 I/O 01/07/17 01/07/17 01/07/17 01/08/17 01/08/17 01/08/17 07:00 15:00 23:00 07:00 15:00 23:00 Intake Total 200 ml 720 ml Output Total 0 ml Balance 200 ml 720 ml Intake Oral 200 ml 720 ml IV Total 0 ml Output Urine Total 0 ml Stool Total 0 ml # Voids 3 0 # Bowel Movements 0 0 Result Diagram: 01/06/17222601/06/172226 Objective Remarks GENERAL: Alert, NAD. SKIN: Warm and dry. HEAD: Normocephalic. EYES: No scleral icterus. No injection or drainage. NECK: Supple, trachea midline. No JVD or lymphadenopathy. CARDIOVASCULAR: Regular rate and rhythm without murmurs, gallops, or rubs. RESPIRATORY: Breath sounds equal bilaterally. No accessory muscle use. GASTROINTESTINAL: Abdomen soft, non-tender, nondistended. MUSCULOSKELETAL: No cyanosis, or edema. BACK: Nontender without obvious deformity. No CVA tenderness. Procedures Echo 12/07/2016 Mildly dilated left ventricle. Wall thickness is normal. The left ventricular systolic function is normal with an estimated ejection fraction is 45-50%. There is distinct regional wall motion abnormalities with akinetic apex and possibly clot at the apex. Consider repeating study with contrast/Definity to better asses apex The right ventriclar size is upper limits of normal. The left atrial size is moderately dilated. The right atrial size is moderately dilated. Vmji-do-dtpoxnpj mitral valve regurgitation. There is mild tricuspid valve regurgitation. There is estimated mild pulmonary hypertension present (range 40-50 mmHg). The pulmonary valve is not well visualized. The inferior vena cava is dilated. There is less than 50% respiratory change in dimension of the inferior vena cava (abnormal). A/P Problem List: (1) Respiratory failure ICD Code: J96.90 - Respiratory failure, unspecified, unspecified whether with hypoxia or hypercapnia Status: Acute (2) Sepsis ICD Code: A41.9 - Sepsis, unspecified organism Status: Acute (3) Pneumonia ICD Code: J18.9 - Pneumonia, unspecified organism Status: Acute (4) left atrial thrombus Status: Acute (5) NSTEMI (non-ST elevated myocardial infarction) ICD Code: I21.4 - Non-ST elevation (NSTEMI) myocardial infarction Status: Resolved (6) ARF (acute renal failure) ICD Code: N17.9 - ARF (acute renal failure) Status: Acute (7) Diabetes mellitus ICD Code: E11.9 - Diabetes mellitus Status: Chronic (8) Morbid obesity ICD Code: E66.01 - Morbid (severe) obesity due to excess calories Status: Acute (9) Severe chronic obstructive pulmonary disease ICD Code: J44.9 - Chronic obstructive pulmonary disease, unspecified Status: Acute (10) CKD (chronic kidney disease) stage 4, GFR 15-29 ml/min ICD Code: N18.4 - Chronic kidney disease, stage 4 (severe) Status: Acute Assessment and Plan Mr. Mehta is a 66-year-old male with medical history significant for hypertension and diabetes and CVA who presented to the hospital with a chief complaint of shortness of breath and chest pain. The patient was diagnosed with NSTEMI. Echo was performed which was concerning for thrombus, but study was limited and a repeat was suggested. He has history of chronic kidney disease but worsening of his creatinine was noted. He was seen and evaluated by nephrology who started the patient on hemodialysis. Kidney bx is planned. CKD stage IV with GFR 15-29. Acute renal failure - currently on hemodialysis. - PermaCath placed. - Kidney biopsy on 01/03/2017 --> diffuse and nodular diabetic glomerulosclerosis , segmental and global glomerular sclerosis, interstitial fibrosis and tubular atrophy severe. Bilateral lower lobe pneumonias/community acquired - s/p abx treatment azithromycin and Rocephin - Urine culture negative for streptococcus and legionella - Sputum with normal respiratory shannan - Blood cultures negative to date COPD - Symbicort and Spiriva - Continue albuterol neb. NSTEMI Hypertension - Echo performed December 07 showed distinct regional wall abnormalities with a possible clot in the apex. - echo with Definity contrast does not appear to show any clots in LV. - We discontinued heparin and warfarin which were on hold. - ASA 81 mg daily. Coreg 6.25 mg BID. Norvasc 10 mg daily. Clonidine to 0.3 mg po TID and hydralazine 100 mg by mouth daily 8 hour - Will discontinue telemetry. Diabetes mellitus - Continue Levemir 30 units QHS and sliding scale insulin. - pre-meal insulin 5 units TIDAC BPH - continue Tamsulosin. Full code. Heparin SQ for DVT prophylaxis. Problem Qualifiers (1) Sepsis: (2) Pneumonia: (3) ARF (acute renal failure): (4) Diabetes mellitus: Zachary Man DO Jan 08, 2017 2:05 pm
[2017-01-08] MEDS: SODIUM CHLORIDE 0.9% FLUSH 10 ML FLUSH IVF SCH (15:16)
--- NOTE | 2017-01-08 17:08 | HHI.NPPN ---
Subjective History of Present Illness 66-year-old male with past medical history of hypertension, diabetes mellitus, history of cerebrovascular accident with left-sided weakness, hyperlipidemia, bronchial asthma, chronic kidney disease who was admitted because of shortness of breath and chest pain. I was called to see the patient because of elevated BUN and creatinine. The patient was diagnosed here with non-ST elevation [place]. The patient has history of chronic kidney disease. Additional Remarks Patient is alert, with nasal cannula, not in distress, clinically same. Objective Data Data Vital Signs Date Time Temp Pulse Resp B/P (MAP) Pulse Ox O2 Delivery O2 Flow Rate FiO2 01/08/17 16:00 98.2 68 20 151/69 (96) 98 01/08/17 12:00 98.5 59 18 116/59 (78) 98 01/08/17 08:00 63 01/08/17 08:00 Nasal Cannula 2.00 21 01/08/17 08:00 98.0 65 18 124/65 (84) 95 01/08/17 04:00 98.5 61 16 115/58 (77) 100 01/08/17 04:00 Nasal Cannula 2.00 01/08/17 00:00 98.0 66 16 118/59 (78) 99 01/08/17 00:00 Nasal Cannula 2.00 01/07/17 23:44 98.4 75 20 126/70 (88) 98 01/07/17 20:35 Nasal Cannula 2.00 01/07/17 20:25 70 01/07/17 20:00 Nasal Cannula 2.00 01/07/17 20:00 98.6 71 16 122/61 (81) 98 01/07/17 17:33 98 Nasal Cannula 2.00 -: 01/06/17222601/06/172226 Physical Exam General Appearance: No Acute Distress, Comfortable Eyes Eye Exam: Pupils Equal Throat Throat Exam: Oral Mucosa [place] & Moist Neck Neck Exam: Neck Supple Pulmonary Resp Exam: No Distress, Rhonchi, Decreased Bases, Diminished Breath Sounds Cardiology CV Exam: Regular, Normal Sinus Rhythm Gastrointestinal/Abdomen GI Exam: Soft, Non-Tender, Bowel Sounds Present Extremeties Extremities Exam: Moderate Edema Neurologic Neuro Exam: Alert, Awake Psychiatric Psych Exam: Appropriate Responses Assessment/Plan Assessment Summary: WILLIE/Acute Renal Failure, CHF, CKD Stage IV Problem List: (1) NSTEMI (non-ST elevated myocardial infarction) ICD Codes: I21.4 - Non-ST elevation (NSTEMI) myocardial infarction Status: Resolved (2) Diabetes mellitus ICD Codes: E11.9 - Diabetes mellitus Status: Chronic (3) Asthma ICD Codes: J45.909 - Asthma Status: Chronic (4) Shortness of breath ICD Codes: R06.02 - Shortness of breath Status: Acute (5) Leg edema ICD Codes: R60.0 - Leg edema Status: Acute (6) Hypertension ICD Codes: I10 - Hypertension Status: Chronic (7) CKD (chronic kidney disease) stage 4, GFR 15-29 ml/min ICD Codes: N18.4 - Chronic kidney disease, stage 4 (severe) Status: Acute (8) ARF (acute renal failure) ICD Codes: N17.9 - ARF (acute renal failure) Status: Acute Plan Patient has been non oliguric, Creatinine is still elevated. K is normal, Follow urine out put and BMP. Has proteinuria, serology pending. Added Phoslo as Po4 is elevated and calcitriol as Calcium is low. BP is better. Follow urine out put and watch for any renal recovery. Got the PermCath , has poor flow from Vascath. I was called yesterday about the Kidney Biopsy showing Diabetic and Hypertensive renal disease. Continue HD TTS. Vascular to see the patient fro AVF. Problem Qualifiers (1) Diabetes mellitus: (2) Hypertension: Qualified Codes: I10 - Essential (primary) hypertension (3) ARF (acute renal failure): Zoey Carbone MD Jan 08, 2017 17:08
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
[2017-01-08] MEDS: INSULIN DETEMIR 100 UNITS/ML VIAL SQ SCH (21:01)
[2017-01-08] MEDS: SENNOSIDES 8.6 MG TAB PO PRN (22:36)
[2017-01-09] VITALS: BP 130/57; PULSE 78; RESP 20; TEMP 98.3; O2SAT 97
[2017-01-09 04:00] VITALS: BP 157/82; PULSE 77; RESP 20; TEMP 98.3; O2SAT 98
[2017-01-09] MEDS: CHLORHEXIDINE GLUCONATE 2 % 1 PACK (2 CLOTHS) TOP SCH (04:00)
[2017-01-09] MEDS: hydrALAZINE HCL 50 MG TAB PO SCH ×3 (04:38→23:31)
[2017-01-09] MEDS: INSULIN NovoLIN REGULAR SUPPLEMENTAL SCALE SQ SCH ×4 (05:38→23:35)
[2017-01-09 08:00] VITALS: BP 163/63; PULSE 82; RESP 18; TEMP 98.2; O2SAT 92
[2017-01-09] MEDS: INSULIN ASPART 1,000 UNITS/10 ML VIAL SQ SCH ×3 (08:00→18:52)
[2017-01-09] MEDS: CHLORHEXIDINE 0.12% (ORAL KIT) 15 ML CUP MT SCH ×2 (08:00→20:00)
[2017-01-09] MEDS: ARTIFICIAL TEARS OPTH SOLN 15 ML BTL EACH EYE SCH ×3 (09:00→17:25)
[2017-01-09] MEDS: SODIUM CHLORIDE 0.9% FLUSH 10 ML FLUSH IVF SCH (09:00)
[2017-01-09] MEDS: CALCIUM ACETATE 667 MG CAP PO SCH ×3 (09:00→17:25)
[2017-01-09] MEDS: SODIUM CHLORIDE 0.9% FLUSH 10 ML FLUSH IV FLUSH SCH ×2 (09:00→23:36)
[2017-01-09] MEDS: HEPARIN SODIUM - SQ 10,000 UNITS/ML VIAL SQ SCH ×2 (09:00→21:00)
--- NOTE | 2017-01-09 09:54 | HHI.NPPN ---
Subjective History of Present Illness 66-year-old male with past medical history of hypertension, diabetes mellitus, history of cerebrovascular accident with left-sided weakness, hyperlipidemia, bronchial asthma, chronic kidney disease who was admitted because of shortness of breath and chest pain. I was called to see the patient because of elevated BUN and creatinine. The patient was diagnosed here with non-ST elevation [place]. The patient has history of chronic kidney disease. Additional Remarks Patient is alert, seen during HD, mild SOB, with nasal cannula, not in distress. Objective Data Data Vital Signs Date Time Temp Pulse Resp B/P (MAP) Pulse Ox O2 Delivery O2 Flow Rate FiO2 01/09/17 08:00 98.2 82 18 163/63 (96) 92 01/09/17 04:00 98.3 77 20 157/82 (107) 98 01/09/17 04:00 Nasal Cannula 2.00 01/09/17 00:00 98.3 78 20 130/57 (81) 97 01/09/17 00:00 Nasal Cannula 2.00 01/08/17 23:42 98.1 92 18 167/84 (111) 98 01/08/17 20:06 Nasal Cannula 2.00 01/08/17 20:00 Nasal Cannula 2.00 01/08/17 20:00 98.2 75 16 139/77 (97) 97 01/08/17 16:00 98.2 68 20 151/69 (96) 98 01/08/17 12:00 98.5 59 18 116/59 (78) 98 -: 01/06/17222601/06/172226 Physical Exam General Appearance: No Acute Distress, Comfortable Eyes Eye Exam: Pupils Equal Throat Throat Exam: Oral Mucosa [place] & Moist Neck Neck Exam: Neck Supple Pulmonary Resp Exam: No Distress, Rhonchi, Decreased Bases, Diminished Breath Sounds Cardiology CV Exam: Regular, Normal Sinus Rhythm Gastrointestinal/Abdomen GI Exam: Soft, Non-Tender, Bowel Sounds Present Extremeties Extremities Exam: Moderate Edema Neurologic Neuro Exam: Alert, Awake Psychiatric Psych Exam: Appropriate Responses Assessment/Plan Assessment Summary: WILLIE/Acute Renal Failure, CHF, CKD Stage IV Problem List: (1) NSTEMI (non-ST elevated myocardial infarction) ICD Codes: I21.4 - Non-ST elevation (NSTEMI) myocardial infarction Status: Resolved (2) Diabetes mellitus ICD Codes: E11.9 - Diabetes mellitus Status: Chronic (3) Asthma ICD Codes: J45.909 - Asthma Status: Chronic (4) Shortness of breath ICD Codes: R06.02 - Shortness of breath Status: Acute (5) Leg edema ICD Codes: R60.0 - Leg edema Status: Acute (6) Hypertension ICD Codes: I10 - Hypertension Status: Chronic (7) CKD (chronic kidney disease) stage 4, GFR 15-29 ml/min ICD Codes: N18.4 - Chronic kidney disease, stage 4 (severe) Status: Acute (8) ARF (acute renal failure) ICD Codes: N17.9 - ARF (acute renal failure) Status: Acute Plan Patient has been non oliguric, Creatinine is still elevated. K is normal, Follow urine out put and BMP. Has proteinuria, serology pending. Added Phoslo as Po4 is elevated and calcitriol as Calcium is low. BP is better. Follow urine out put and watch for any renal recovery. Got the PermCath , has poor flow from Vascath. I was called yesterday about the Kidney Biopsy showing Diabetic and Hypertensive renal disease. Seen by vascular, will get AVF soon. HD now, remove fluid as tolerated. Problem Qualifiers (1) Diabetes mellitus: (2) Hypertension: Qualified Codes: I10 - Essential (primary) hypertension (3) ARF (acute renal failure): Zoey Carbone MD Jan 09, 2017 09:54
[2017-01-09] MEDS: HEPARIN SODIUM - IV 10,000 UNITS/10 ML VIAL PRN (11:30)
[2017-01-09] MEDS: EPOETIN ALFA 10,000 UNITS/ML VIAL IV PRN (11:30)
[2017-01-09] MEDS: SODIUM CHLOR 0.9% 1000 ML INJ 1,000 ML IV PRN (11:31)
[2017-01-09] MEDS: GENTAMICIN SULFATE (DIALYSIS USE ONLY) 20 MG/2 ML VIAL IV PRN (11:31)
[2017-01-09] MEDS: cloNIDine HCL 0.3 MG TAB PO SCH ×3 (13:22→23:31)
[2017-01-09] MEDS: BUDESONIDE-FORMOTEROL 160/4.5 MCG INHALER INH SCH ×2 (13:23→23:36)
[2017-01-09] MEDS: TIOTROPIUM BROMIDE 18 MCG INH INH SCH (13:23)
[2017-01-09] MEDS: ASPIRIN 81 MG CHEW TAB CHEW SCH (13:23)
[2017-01-09] MEDS: CALCITRIOL 0.25 MCG CAP PO SCH (13:25)
[2017-01-09] MEDS: TAMSULOSIN HCL 0.4 MG CAP PO SCH (13:25)
[2017-01-09] MEDS: CARVEDILOL 6.25 MG TAB PO SCH ×2 (13:25→23:31)
[2017-01-09 13:42] VITALS: BP 148/85; PULSE 101
[2017-01-09 16:00] VITALS: BP 134/68; PULSE 82; RESP 18; TEMP 98; O2SAT 97
[2017-01-09 20:00] VITALS: BP 137/78; PULSE 78; RESP 18; TEMP 97.9; O2SAT 99
--- NOTE | 2017-01-09 22:59 | HHI.PR ---
Subjective Remarks ollow up for bilateral lower lobe pneumonia, WILLIE requiring HD, NSTEMI. No acute concerns. Objective Vitals Vital Signs Date Time Temp Pulse Resp B/P (MAP) Pulse Ox O2 Delivery O2 Flow Rate FiO2 01/09/17 20:00 97.9 78 18 137/78 (97) 99 01/09/17 16:00 98.0 82 18 134/68 (90) 97 01/09/17 15:39 92 Nasal Cannula 2.00 01/09/17 13:42 101 148/85 (106) 01/09/17 08:00 98.2 82 18 163/63 (96) 92 01/09/17 07:15 92 Nasal Cannula 2.00 01/09/17 04:00 98.3 77 20 157/82 (107) 98 01/09/17 04:00 Nasal Cannula 2.00 01/09/17 00:00 98.3 78 20 130/57 (81) 97 01/09/17 00:00 Nasal Cannula 2.00 01/08/17 23:42 98.1 92 18 167/84 (111) 98 I/O 01/08/17 01/08/17 01/08/17 01/09/17 01/09/17 01/09/17 07:00 15:00 23:00 07:00 15:00 23:00 Intake Total 1470 ml 360 ml 480 ml Output Total 950 ml Balance 520 ml 360 ml 480 ml Intake Oral 1470 ml 360 ml 480 ml Output Urine Total 950 ml # Voids 1 1 # Bowel Movements 0 2 1 Result Diagram: 01/06/17222601/06/172226 Objective Remarks GENERAL: Alert, NAD. SKIN: Warm and dry. HEAD: Normocephalic. EYES: No scleral icterus. No injection or drainage. NECK: Supple, trachea midline. No JVD or lymphadenopathy. CARDIOVASCULAR: Regular rate and rhythm without murmurs, gallops, or rubs. RESPIRATORY: Breath sounds equal bilaterally. No accessory muscle use. GASTROINTESTINAL: Abdomen soft, non-tender, nondistended. MUSCULOSKELETAL: No cyanosis, or edema. BACK: Nontender without obvious deformity. No CVA tenderness. Procedures Echo 12/07/2016 Mildly dilated left ventricle. Wall thickness is normal. The left ventricular systolic function is normal with an estimated ejection fraction is 45-50%. There is distinct regional wall motion abnormalities with akinetic apex and possibly clot at the apex. Consider repeating study with contrast/Definity to better asses apex The right ventriclar size is upper limits of normal. The left atrial size is moderately dilated. The right atrial size is moderately dilated. [id number] mitral valve regurgitation. There is mild tricuspid valve regurgitation. There is estimated mild pulmonary hypertension present (range 40-50 mmHg). The pulmonary valve is not well visualized. The inferior vena cava is dilated. There is less than 50% respiratory change in dimension of the inferior vena cava (abnormal). A/P Problem List: (1) Respiratory failure ICD Code: J96.90 - Respiratory failure, unspecified, unspecified whether with hypoxia or hypercapnia Status: Acute (2) Sepsis ICD Code: A41.9 - Sepsis, unspecified organism Status: Acute (3) Pneumonia ICD Code: J18.9 - Pneumonia, unspecified organism Status: Acute (4) left atrial thrombus Status: Acute (5) NSTEMI (non-ST elevated myocardial infarction) ICD Code: I21.4 - Non-ST elevation (NSTEMI) myocardial infarction Status: Resolved (6) ARF (acute renal failure) ICD Code: N17.9 - ARF (acute renal failure) Status: Acute (7) Diabetes mellitus ICD Code: E11.9 - Diabetes mellitus Status: Chronic (8) Morbid obesity ICD Code: E66.01 - Morbid (severe) obesity due to excess calories Status: Acute (9) Severe chronic obstructive pulmonary disease ICD Code: J44.9 - Chronic obstructive pulmonary disease, unspecified Status: Acute (10) CKD (chronic kidney disease) stage 4, GFR 15-29 ml/min ICD Code: N18.4 - Chronic kidney disease, stage 4 (severe) Status: Acute Assessment and Plan Mr. Mehta is a 66-year-old male with medical history significant for hypertension and diabetes and CVA who presented to the hospital with a chief complaint of shortness of breath and chest pain. The patient was diagnosed with NSTEMI. Echo was performed which was concerning for thrombus, but study was limited and a repeat was suggested. He has history of chronic kidney disease but worsening of his creatinine was noted. He was seen and evaluated by nephrology who started the patient on hemodialysis. CKD stage IV with GFR 15-29. Acute renal failure - currently on hemodialysis. - PermaCath placed. - Kidney biopsy on 01/03/2017 --> diffuse and nodular diabetic glomerulosclerosis , segmental and global glomerular sclerosis, interstitial fibrosis and tubular atrophy severe. Bilateral lower lobe pneumonias/community acquired - s/p abx treatment azithromycin and Rocephin - Urine culture negative for streptococcus and legionella - Sputum with normal respiratory shannan - Blood cultures negative to date COPD - Symbicort and Spiriva - Continue albuterol neb. NSTEMI Hypertension - Echo performed December 07 showed distinct regional wall abnormalities with a possible clot in the apex. - echo with Definity contrast does not appear to show any clots in LV. - We discontinued heparin and warfarin which were on hold. - ASA 81 mg daily. Coreg 6.25 mg BID. Norvasc 10 mg daily. Clonidine to 0.3 mg po TID and hydralazine 100 mg by mouth daily 8 hour Diabetes mellitus - Continue Levemir 30 units QHS and sliding scale insulin. - pre-meal insulin 5 units TIDAC BPH - continue Tamsulosin. Full code. Heparin SQ for DVT prophylaxis. Discharge plan: Pending outpatient dialysis arrangements. Problem Qualifiers (1) Sepsis: (2) Pneumonia: (3) ARF (acute renal failure): (4) Diabetes mellitus: Zachary Man DO Jan 09, 2017 10:59 pm
[2017-01-09] MEDS: INSULIN DETEMIR 100 UNITS/ML VIAL SQ SCH (23:36)
[2017-01-10] VITALS (7 sets, daily range): BP systolic 105–166; BP diastolic 65–76; PULSE 71–97; RESP 17–20; TEMP 97.6–98.6; O2SAT 93–99
[2017-01-10] MEDS: CHLORHEXIDINE GLUCONATE 2 % 1 PACK (2 CLOTHS) TOP SCH (04:00)
[2017-01-10] MEDS: hydrALAZINE HCL 50 MG TAB PO SCH ×3 (06:58→22:00)
[2017-01-10] MEDS: INSULIN NovoLIN REGULAR SUPPLEMENTAL SCALE SQ SCH ×3 (07:00→18:00)
[2017-01-10] MEDS: cloNIDine HCL 0.3 MG TAB PO SCH ×2 (08:00→18:35)
[2017-01-10] MEDS: CHLORHEXIDINE 0.12% (ORAL KIT) 15 ML CUP MT SCH ×2 (08:00→20:00)
[2017-01-10] MEDS: INSULIN ASPART 1,000 UNITS/10 ML VIAL SQ SCH ×3 (08:00→18:35)
[2017-01-10] MEDS: CARVEDILOL 6.25 MG TAB PO SCH ×2 (09:00→22:16)
[2017-01-10] MEDS: SODIUM CHLORIDE 0.9% FLUSH 10 ML FLUSH IVF SCH (09:00)
[2017-01-10] MEDS: ASPIRIN 81 MG CHEW TAB CHEW SCH (09:49)
[2017-01-10] MEDS: ARTIFICIAL TEARS OPTH SOLN 15 ML BTL EACH EYE SCH ×3 (09:49→18:36)
[2017-01-10] MEDS: BUDESONIDE-FORMOTEROL 160/4.5 MCG INHALER INH SCH ×2 (09:49→22:17)
[2017-01-10] MEDS: TIOTROPIUM BROMIDE 18 MCG INH INH SCH (09:49)
[2017-01-10] MEDS: SODIUM CHLORIDE 0.9% FLUSH 10 ML FLUSH IV FLUSH SCH ×2 (09:50→22:17)
[2017-01-10] MEDS: CALCIUM ACETATE 667 MG CAP PO SCH ×3 (09:51→18:36)
[2017-01-10] MEDS: CALCITRIOL 0.25 MCG CAP PO SCH (09:51)
[2017-01-10] MEDS: TAMSULOSIN HCL 0.4 MG CAP PO SCH (09:51)
[2017-01-10] MEDS: HEPARIN SODIUM - SQ 10,000 UNITS/ML VIAL SQ SCH ×2 (09:52→22:16)
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
--- NOTE | 2017-01-10 13:53 | RADRPT ---
EXAM DATE/TIME: 01/10/2017 12:25 [facility] COMPARISON: US CAROTID ARTERIES, April 10, 2015, 18:38. INDICATIONS : Bilateral bruits. MEDICAL HISTORY : Hypercholesterolemia. Diabetes mellitus type 2. CVA. HTN. Asthma. COPD. Chest pain. Numbness. SURGICAL HISTORY : Appendectomy. Ruptured cerebral aneurysm repair. Ventriculostomy. ENCOUNTER: Initial ACUITY: 1 day PAIN SCORE: 0/10 LOCATION: Bilateral neck PEAK SYSTOLIC VELOCITIES (cm/sec): ICA/CCA RATIO: Right: 0.8 Left: 0.7 ICA: Right: 53 Left: 57 CCA: Right: 70 Left: 80 ECA: Right: 66 Left: 76 VERTEBRAL: Right: 61 antegrade Left: 31 antegrade Elevated flow velocities and ICA/CCA ratios have been found to correlate with increased degrees of vessel stenosis, calculated as percentage of diameter relative to a normal segment of distal ICA/CCA FINDINGS: RIGHT CAROTID: There is no evidence for a hemodynamically significant carotid stenosis. Minimal int imal hyperplasia is present with scattered calcific plaque. LEFT CAROTID: There is no evidence for a hemodynamically significant carotid stenosis. Minimal inti mal hyperplasia is present with scattered calcific plaque. VERTEBRAL ARTERIES: Flow is antegrade in both vertebral arteries. MISCELLANEOUS: There are no ancillary masses or adenopathy. CONCLUSION: Negative examination for a hemodynamically significant carotid stenosis. Marek Burnett MD FACR on January 10, 2017 at 13:51 Board Certified Radiologist. This report was verified electronically.
--- NOTE | 2017-01-10 16:07 | HHI.NPPN ---
Subjective History of Present Illness 66-year-old male with past medical history of hypertension, diabetes mellitus, history of cerebrovascular accident with left-sided weakness, hyperlipidemia, bronchial asthma, chronic kidney disease who was admitted because of shortness of breath and chest pain. I was called to see the patient because of elevated BUN and creatinine. The patient was diagnosed here with non-ST elevation [place]. The patient has history of chronic kidney disease. Additional Remarks Patient is alert, not in distress, has mild SOB. Objective Data Data 01/10/17 01/11/17 19:00 07:00 Intake Total 480 ml Balance 480 ml Intake Oral 480 ml Vital Signs Date Time Temp Pulse Resp B/P (MAP) Pulse Ox O2 Delivery O2 Flow Rate FiO2 01/10/17 13:15 98.4 81 20 129/66 (87) 93 01/10/17 10:10 98 Nasal Cannula 2.00 01/10/17 08:46 98.6 81 20 105/67 (80) 97 01/10/17 07:15 98 Nasal Cannula 2.00 01/10/17 04:00 98.4 71 20 133/66 (88) 98 01/10/17 00:00 97.9 76 20 110/73 (85) 98 01/09/17 23:38 Nasal Cannula 2.00 01/09/17 20:00 97.9 78 18 137/78 (97) 99 -: 01/06/17222601/06/172226 Physical Exam General Appearance: No Acute Distress, Comfortable Eyes Eye Exam: Pupils Equal Throat Throat Exam: Oral Mucosa [place] & Moist Neck Neck Exam: Neck Supple Pulmonary Resp Exam: No Distress, Rhonchi, Decreased Bases, Diminished Breath Sounds Cardiology CV Exam: Regular, Normal Sinus Rhythm Gastrointestinal/Abdomen GI Exam: Soft, Non-Tender, Bowel Sounds Present Extremeties Extremities Exam: Moderate Edema Neurologic Neuro Exam: Alert, Awake Psychiatric Psych Exam: Appropriate Responses Assessment/Plan Assessment Summary: WILLIE/Acute Renal Failure, CHF, CKD Stage IV Problem List: (1) NSTEMI (non-ST elevated myocardial infarction) ICD Codes: I21.4 - Non-ST elevation (NSTEMI) myocardial infarction Status: Resolved (2) Diabetes mellitus ICD Codes: E11.9 - Diabetes mellitus Status: Chronic (3) Asthma ICD Codes: J45.909 - Asthma Status: Chronic (4) Shortness of breath ICD Codes: R06.02 - Shortness of breath Status: Acute (5) Leg edema ICD Codes: R60.0 - Leg edema Status: Acute (6) Hypertension ICD Codes: I10 - Hypertension Status: Chronic (7) CKD (chronic kidney disease) stage 4, GFR 15-29 ml/min ICD Codes: N18.4 - Chronic kidney disease, stage 4 (severe) Status: Acute (8) ARF (acute renal failure) ICD Codes: N17.9 - ARF (acute renal failure) Status: Acute Plan Patient has been non oliguric, Creatinine is still elevated. K is normal, Follow urine out put and BMP. Has proteinuria, serology negative. Added Phoslo as Po4 is elevated and calcitriol as Calcium is low. BP is better. Follow urine out put and watch for any renal recovery. Got the PermCath , has poor flow from Vascath. The Kidney Biopsy showing Diabetic and Hypertensive renal disease. Seen by vascular, will get AVF soon. HD to continue as per schedule. Problem Qualifiers (1) Diabetes mellitus: (2) Hypertension: Qualified Codes: I10 - Essential (primary) hypertension (3) ARF (acute renal failure): Zoey Carbone MD Jan 10, 2017 16:07
--- NOTE | 2017-01-10 16:16 | HHI.PR ---
Subjective Remarks Follow up for bilateral lower lobe pneumonia, WILLIE requiring HD, NSTEMI. Patient is tolerating diet well. No acute concerns. Objective Vitals Vital Signs Date Time Temp Pulse Resp B/P (MAP) Pulse Ox O2 Delivery O2 Flow Rate FiO2 01/10/17 13:15 98.4 81 20 129/66 (87) 93 01/10/17 10:10 98 Nasal Cannula 2.00 01/10/17 08:46 98.6 81 20 105/67 (80) 97 01/10/17 07:15 98 Nasal Cannula 2.00 01/10/17 04:00 98.4 71 20 133/66 (88) 98 01/10/17 00:00 97.9 76 20 110/73 (85) 98 01/09/17 23:38 Nasal Cannula 2.00 01/09/17 20:00 97.9 78 18 137/78 (97) 99 I/O 01/09/17 01/09/17 01/09/17 01/10/17 01/10/17 01/10/17 07:00 15:00 23:00 07:00 15:00 23:00 Intake Total 360 ml 480 ml 240 ml 480 ml Balance 360 ml 480 ml 240 ml 480 ml Intake Oral 360 ml 480 ml 240 ml 480 ml # Voids 1 1 2 # Bowel Movements 2 1 0 Result Diagram: 01/06/17222601/06/172226 Objective Remarks GENERAL: Alert, NAD. SKIN: Warm and dry. HEAD: Normocephalic. EYES: No scleral icterus. No injection or drainage. NECK: Supple, trachea midline. No JVD or lymphadenopathy. CARDIOVASCULAR: Regular rate and rhythm without murmurs, gallops, or rubs. RESPIRATORY: Breath sounds equal bilaterally. No accessory muscle use. GASTROINTESTINAL: Abdomen soft, non-tender, nondistended. MUSCULOSKELETAL: No cyanosis, or edema. BACK: Nontender without obvious deformity. No CVA tenderness. Procedures Echo 12/07/2016 Mildly dilated left ventricle. Wall thickness is normal. The left ventricular systolic function is normal with an estimated ejection fraction is 45-50%. There is distinct regional wall motion abnormalities with akinetic apex and possibly clot at the apex. Consider repeating study with contrast/Definity to better asses apex The right ventriclar size is upper limits of normal. The left atrial size is moderately dilated. The right atrial size is moderately dilated. Idev-nd-csoyifll mitral valve regurgitation. There is mild tricuspid valve regurgitation. There is estimated mild pulmonary hypertension present (range 40-50 mmHg). The pulmonary valve is not well visualized. The inferior vena cava is dilated. There is less than 50% respiratory change in dimension of the inferior vena cava (abnormal). A/P Problem List: (1) Respiratory failure ICD Code: J96.90 - Respiratory failure, unspecified, unspecified whether with hypoxia or hypercapnia Status: Acute (2) Sepsis ICD Code: A41.9 - Sepsis, unspecified organism Status: Acute (3) Pneumonia ICD Code: J18.9 - Pneumonia, unspecified organism Status: Acute (4) left atrial thrombus Status: Acute (5) NSTEMI (non-ST elevated myocardial infarction) ICD Code: I21.4 - Non-ST elevation (NSTEMI) myocardial infarction Status: Resolved (6) ARF (acute renal failure) ICD Code: N17.9 - ARF (acute renal failure) Status: Acute (7) Diabetes mellitus ICD Code: E11.9 - Diabetes mellitus Status: Chronic (8) Morbid obesity ICD Code: E66.01 - Morbid (severe) obesity due to excess calories Status: Acute (9) Severe chronic obstructive pulmonary disease ICD Code: J44.9 - Chronic obstructive pulmonary disease, unspecified Status: Acute (10) CKD (chronic kidney disease) stage 4, GFR 15-29 ml/min ICD Code: N18.4 - Chronic kidney disease, stage 4 (severe) Status: Acute Assessment and Plan Mr. Mehta is a 66-year-old male with medical history significant for hypertension and diabetes and CVA who presented to the hospital with a chief complaint of shortness of breath and chest pain. The patient was diagnosed with NSTEMI. Echo was performed which was concerning for thrombus, but study was limited and a repeat was suggested. He has history of chronic kidney disease but worsening of his creatinine was noted. He was seen and evaluated by nephrology who started the patient on hemodialysis. CKD stage IV with GFR 15-29. Acute renal failure - currently on hemodialysis. - PermaCath placed. - Kidney biopsy on 01/03/2017 --> diffuse and nodular diabetic glomerulosclerosis , segmental and global glomerular sclerosis, interstitial fibrosis and tubular atrophy severe. Bilateral lower lobe pneumonias/community acquired - s/p abx treatment azithromycin and Rocephin - Urine culture negative for streptococcus and legionella - Sputum with normal respiratory shannan - Blood cultures negative to date COPD - Symbicort and Spiriva - Continue albuterol neb. NSTEMI Hypertension - Echo performed December 07 showed distinct regional wall abnormalities with a possible clot in the apex. - echo with Definity contrast does not appear to show any clots in LV. - We discontinued heparin and warfarin which were on hold. - ASA 81 mg daily. Coreg 6.25 mg BID. Norvasc 10 mg daily. Clonidine to 0.3 mg po TID and hydralazine 100 mg by mouth daily 8 hour Diabetes mellitus - Increase Levemir from 30 to 35 units QHS and sliding scale insulin. - pre-meal insulin 7 (increased from 5) units TIDAC BPH - continue Tamsulosin. Full code. Heparin SQ for DVT prophylaxis. Discharge plan: Pending outpatient dialysis arrangements. Problem Qualifiers (1) Sepsis: (2) Pneumonia: (3) ARF (acute renal failure): (4) Diabetes mellitus: Zachary Man DO Jan 10, 2017 4:16 pm
[2017-01-10] MEDS: INSULIN DETEMIR 100 UNITS/ML VIAL SQ SCH (22:16)
[2017-01-11] VITALS: BP 161/75; PULSE 95; RESP 20; TEMP 99.2; O2SAT 95
[2017-01-11] MEDS: INSULIN NovoLIN REGULAR SUPPLEMENTAL SCALE SQ SCH ×4 (01:30→18:00)
[2017-01-11] MEDS: cloNIDine HCL 0.3 MG TAB PO SCH ×3 (01:34→17:59)
[2017-01-11 04:00] VITALS: BP 117/70; PULSE 80; RESP 19; TEMP 98.8; O2SAT 100
[2017-01-11] MEDS ORDERED: LACTATED RINGER'S 1000 ML IV PRN (04:00)
[2017-01-11] MEDS: CHLORHEXIDINE GLUCONATE 2 % 1 PACK (2 CLOTHS) TOP SCH (04:00)
[2017-01-11] MEDS ORDERED: POVIDONE IODINE 5% (ANTISEPSIS KIT) 4 APPLICATIONS EACH NARE PRN (04:00)
[2017-01-11] MEDS ORDERED: CHLORHEXIDINE GLUCONATE 2 % 1 PACK (2 CLOTHS) TOPICAL PRN (04:00)
[2017-01-11] MEDS ORDERED: SODIUM CHLORID 0.9% 500 ML IV PRN (04:00)
[2017-01-11] MEDS ORDERED: INSULIN HUMAN REGULAR 1,000 UNITS/10 ML VIAL SQ PRN (04:00)
[2017-01-11] MEDS: hydrALAZINE HCL 50 MG TAB PO SCH ×3 (06:00→20:32)
[2017-01-11] MEDS: INSULIN ASPART 1,000 UNITS/10 ML VIAL SQ SCH ×3 (08:00→18:00)
[2017-01-11] MEDS ORDERED: BUPIVACAINE HCL PF 0.5% 30 ML VIAL ONE (08:20)
[2017-01-11] MEDS: SODIUM CHLORIDE 0.9% FLUSH 10 ML FLUSH IVF SCH (09:00)
[2017-01-11] MEDS: ARTIFICIAL TEARS OPTH SOLN 15 ML BTL EACH EYE SCH ×3 (09:00→18:00)
[2017-01-11] MEDS: SODIUM CHLORIDE 0.9% FLUSH 10 ML FLUSH IV FLUSH SCH ×2 (09:00→20:33)
[2017-01-11] MEDS: CALCIUM ACETATE 667 MG CAP PO SCH ×3 (09:00→17:59)
[2017-01-11] MEDS ORDERED: ceFAZolin 2 GM PREMIX 50 ML IV ONE (10:04)
[2017-01-11] MEDS ORDERED: DO NOT ADM ANY ANTICOAGULANT DRUGS PRN (11:30)
[2017-01-11 12:00] VITALS: BP 130/63; PULSE 84; RESP 18; TEMP 98.8; O2SAT 97
[2017-01-11] MEDS ORDERED: ceFAZolin INJ 1,000 MG VIAL IV ONE (12:00)
[2017-01-11] MEDS ORDERED: PHENYLEPH/NS 1000 MCG/10 ML SYR IV ONE (12:00)
[2017-01-11] MEDS ORDERED: ePHEDrine/NS 25 MG/5 ML SYR IV ONE (12:00)
--- NOTE | 2017-01-11 13:00 | HHI.PR ---
Subjective Remarks Follow-up for ESRD. Communicated with the patient using [facility] services. The patient is seen after LUE AVF placement today. He states the surgery went well. He has no acute complaints or concerns. Awaiting outpatient dialysis arrangements. Objective Vitals Vital Signs Date Time Temp Pulse Resp B/P (MAP) Pulse Ox O2 Delivery O2 Flow Rate FiO2 01/11/17 11:15 84 16 129/71 (90) 99 Nasal Cannula 2 01/11/17 11:00 85 16 136/72 (93) 98 Nasal Cannula 2 01/11/17 10:44 99.6 86 16 149/73 (98) 100 Nasal Cannula 2 01/11/17 04:00 98.8 80 19 117/70 (86) 100 01/11/17 00:00 99.2 95 20 161/75 (103) 95 01/10/17 22:42 Nasal Cannula 2.00 01/10/17 21:15 Nasal Cannula 2.00 01/10/17 20:00 97.8 97 17 166/76 (106) 97 01/10/17 16:41 97.6 83 19 136/65 (88) 99 01/10/17 13:15 98.4 81 20 129/66 (87) 93 I/O 01/10/17 01/10/17 01/10/17 01/11/17 01/11/17 01/11/17 06:59 14:59 22:59 06:59 14:59 22:59 Intake Total 240 ml 480 ml 440 ml 500 ml Balance 240 ml 480 ml 440 ml 500 ml Intake Oral 240 ml 480 ml 440 ml IV Total 500 ml # Voids 2 1 # Bowel Movements 0 2 Result Diagram: 01/11/17 0916 Imaging Last Impressions Carotid Artery Ultrasound 01/10/17 0000 Signed Impressions: Service Date/Time: Tuesday, January 10, 2017 12:25 - CONCLUSION: Negative examination for a hemodynamically significant carotid stenosis. Marek Burnett MD FACR Upper Extremity Ultrasound 01/05/17 0000 Signed Impressions: Service Date/Time: Thursday, January 05, 2017 18:56 - CONCLUSION: Normal examination. Ji Martinez MD Renal Biopsy CT 01/03/17 0000 Signed Impressions: Service Date/Time: Tuesday, January 03, 2017 13:28 - CONCLUSION: Uncomplicated CT guided biopsy. Ji Cedillo MD Central Venous Line 01/03/17 0000 Signed Impressions: Service Date/Time: Tuesday, January 03, 2017 00:00 - CONCLUSION: Uncomplicated catheter removal. Filiberto Rodarte MD Catheter Placement X-Ray 01/03/17 0000 Signed Impressions: Service Date/Time: Tuesday, January 03, 2017 14:27 - CONCLUSION: Uncomplicated PermaCath placement as above. Filiberto Rodarte MD Chest X-Ray 12/13/16 0600 Signed Impressions: Service Date/Time: Tuesday, December 13, 2016 04:54 - CONCLUSION: Persistent lobar consolidation left lower lung. Jose Roberto Cheema MD Chest CT 12/08/16 0000 Signed Impressions: Service Date/Time: Thursday, December 08, 2016 14:02 - CONCLUSION: 1. Bilateral lower lobe consolidating airspace disease. 2. Small to moderate bilateral pleural effusions; larger on the left. 3. Cardiomegaly. 4. Endotracheal and nasogastric tubes in good position. Tutu Christianson MD Renal Ultrasound 12/07/16 0000 Signed Impressions: Service Date/Time: November 07:54 - CONCLUSION: Unremarkable and stable bilateral renal ultrasound. No evidence of hydronephrosis. Baron Medrano MD Objective Remarks GENERAL: Well-developed well-nourished. In no acute distress. German- speaking. SKIN: Warm and dry. Dialysis catheter anterior right chest wall. HEENT: Normocephalic. Pupils equal and round. Mucous membranes pink and moist. CARDIOVASCULAR: Regular rate and rhythm. No murmur appreciated. RESPIRATORY: No accessory muscle use. Clear to auscultation. Breath sounds equal bilaterally. GASTROINTESTINAL: Abdomen soft, non-tender, nondistended. Bowel sounds x4. MUSCULOSKELETAL: LUE AVF with surgical dressing in place. No clubbing or cyanosis. No edema. NEUROLOGICAL: Awake and alert. No focal neurological deficits. Moves upper and lower extremities spontaneously. Normal speech. PSYCHIATRIC: Appropriate mood and affect; insight and judgment normal. Procedures Echo 12/07/2016 Mildly dilated left ventricle. Wall thickness is normal. The left ventricular systolic function is normal with an estimated ejection fraction is 45-50%. There is distinct regional wall motion abnormalities with akinetic apex and possibly clot at the apex. Consider repeating study with contrast/Definity to better asses apex The right ventriclar size is upper limits of normal. The left atrial size is moderately dilated. The right atrial size is moderately dilated. [id number] mitral valve regurgitation. There is mild tricuspid valve regurgitation. There is estimated mild pulmonary hypertension present (range 40-50 mmHg). The pulmonary valve is not well visualized. The inferior vena cava is dilated. There is less than 50% respiratory change in dimension of the inferior vena cava (abnormal). A/P Problem List: (1) Respiratory failure ICD Code: J96.90 - Respiratory failure, unspecified, unspecified whether with hypoxia or hypercapnia Status: Acute (2) Sepsis ICD Code: A41.9 - Sepsis, unspecified organism Status: Acute (3) Pneumonia ICD Code: J18.9 - Pneumonia, unspecified organism Status: Acute (4) left atrial thrombus Status: Acute (5) NSTEMI (non-ST elevated myocardial infarction) ICD Code: I21.4 - Non-ST elevation (NSTEMI) myocardial infarction Status: Resolved (6) ARF (acute renal failure) ICD Code: N17.9 - ARF (acute renal failure) Status: Acute (7) Diabetes mellitus ICD Code: E11.9 - Diabetes mellitus Status: Chronic (8) Morbid obesity ICD Code: E66.01 - Morbid (severe) obesity due to excess calories Status: Acute (9) Severe chronic obstructive pulmonary disease ICD Code: J44.9 - Chronic obstructive pulmonary disease, unspecified Status: Acute (10) CKD (chronic kidney disease) stage 4, GFR 15-29 ml/min ICD Code: N18.4 - Chronic kidney disease, stage 4 (severe) Status: Acute Assessment and Plan Mr. Mehta is a 66-year-old male with medical history significant for hypertension and diabetes and CVA who presented to the hospital with a chief complaint of shortness of breath and chest pain. The patient was diagnosed with NSTEMI. Echo was performed which was concerning for thrombus, but study was limited and a repeat was suggested. He has history of chronic kidney disease but worsening of his creatinine was noted. He was seen and evaluated by nephrology who started the patient on hemodialysis. CKD stage IV with GFR 15-29. Acute renal failure progressing to ESRD - nephrology on board, started on hemodialysis. - PermaCath placed. Vascular surgery placed LUE AVF 01/11. - Kidney biopsy on 01/03/2017 --> diffuse and nodular diabetic glomerulosclerosis , segmental and global glomerular sclerosis, interstitial fibrosis and tubular atrophy severe. S/P acute respiratory failure secondary to bilateral lower lobe pneumonias/ community acquired - Urine antigens, sputum culture, blood cultures were all negative. S/p abx treatment course with azithromycin and Rocephin -Resolved COPD - Symbicort and Spiriva - Continue albuterol neb. NSTEMI Hypertension - Echo performed December 07 showed distinct regional wall abnormalities with a possible clot in the apex. - echo with Definity contrast did not appear to show any clots in LV. - Cardiology was consulted, stable from a cardiac standpoint and recommended continued aggressive risk factor modification - ASA 81 mg daily. Coreg 6.25 mg BID. Norvasc 10 mg daily. Clonidine to 0.3 mg po TID and hydralazine 100 mg by mouth daily 8 hour Diabetes mellitus - Continue Levemir 35 units QHS and sliding scale insulin. - pre-meal insulin 7 units TIDAC - Monitor Accu-Cheks and adjust regimen as indicated BPH - continue Tamsulosin. Heparin SQ for DVT prophylaxis. Discharge plan: Pending outpatient dialysis arrangements. Problem Qualifiers (1) Sepsis: (2) Pneumonia: (3) ARF (acute renal failure): (4) Diabetes mellitus: Gordo Salazar Jan 11, 2017 13:00
[2017-01-11] MEDS: CALCITRIOL 0.25 MCG CAP PO SCH (13:47)
[2017-01-11] MEDS: CARVEDILOL 6.25 MG TAB PO SCH ×2 (13:47→20:32)
[2017-01-11] MEDS: HEPARIN SODIUM - SQ 10,000 UNITS/ML VIAL SQ SCH ×2 (13:48→20:32)
[2017-01-11] MEDS: ASPIRIN 81 MG CHEW TAB CHEW SCH (13:48)
[2017-01-11] MEDS: TAMSULOSIN HCL 0.4 MG CAP PO SCH (13:52)
[2017-01-11] MEDS: BUDESONIDE-FORMOTEROL 160/4.5 MCG INHALER INH SCH ×2 (14:08→20:33)
[2017-01-11] MEDS: TIOTROPIUM BROMIDE 18 MCG INH INH SCH (14:08)
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
[2017-01-11 16:00] VITALS: BP 122/66; PULSE 92; RESP 18; TEMP 97.5; O2SAT 97
--- NOTE | 2017-01-11 16:34 | HHI.NPPN ---
Subjective History of Present Illness 66-year-old male with past medical history of hypertension, diabetes mellitus, history of cerebrovascular accident with left-sided weakness, hyperlipidemia, bronchial asthma, chronic kidney disease who was admitted because of shortness of breath and chest pain. I was called to see the patient because of elevated BUN and creatinine. The patient was diagnosed here with non-ST elevation MS. The patient has history of chronic kidney disease. Additional Remarks Patient is alert, not in distress, clinically same. Objective Data Data 01/11/17 01/12/17 19:00 07:00 Intake Total 500 ml Balance 500 ml IV Total 500 ml Vital Signs Date Time Temp Pulse Resp B/P (MAP) Pulse Ox O2 Delivery O2 Flow Rate FiO2 01/11/17 16:00 97.5 92 18 122/66 (84) 97 01/11/17 12:00 98.8 84 18 130/63 (85) 97 01/11/17 11:15 84 16 129/71 (90) 99 Nasal Cannula 2 01/11/17 11:00 85 16 136/72 (93) 98 Nasal Cannula 2 01/11/17 10:44 99.6 86 16 149/73 (98) 100 Nasal Cannula 2 01/11/17 08:00 Nasal Cannula 2.00 01/11/17 04:00 98.8 80 19 117/70 (86) 100 01/11/17 00:00 99.2 95 20 161/75 (103) 95 01/10/17 22:42 Nasal Cannula 2.00 01/10/17 21:15 Nasal Cannula 2.00 01/10/17 20:00 97.8 97 17 166/76 (106) 97 01/10/17 16:41 97.6 83 19 136/65 (88) 99 -: 01/11/17 0916 Physical Exam General Appearance: No Acute Distress, Comfortable Eyes Eye Exam: Pupils Equal Throat Throat Exam: Oral Mucosa [place] & Moist Neck Neck Exam: Neck Supple Pulmonary Resp Exam: No Distress, Rhonchi, Decreased Bases, Diminished Breath Sounds Cardiology CV Exam: Regular, Normal Sinus Rhythm Gastrointestinal/Abdomen GI Exam: Soft, Non-Tender, Bowel Sounds Present Extremeties Extremities Exam: Moderate Edema Neurologic Neuro Exam: Alert, Awake Psychiatric Psych Exam: Appropriate Responses Assessment/Plan Assessment Summary: WILLIE/Acute Renal Failure, CHF, CKD Stage IV Problem List: (1) NSTEMI (non-ST elevated myocardial infarction) ICD Codes: I21.4 - Non-ST elevation (NSTEMI) myocardial infarction Status: Resolved (2) Diabetes mellitus ICD Codes: E11.9 - Diabetes mellitus Status: Chronic (3) Asthma ICD Codes: J45.909 - Asthma Status: Chronic (4) Shortness of breath ICD Codes: R06.02 - Shortness of breath Status: Acute (5) Leg edema ICD Codes: R60.0 - Leg edema Status: Acute (6) Hypertension ICD Codes: I10 - Hypertension Status: Chronic (7) CKD (chronic kidney disease) stage 4, GFR 15-29 ml/min ICD Codes: N18.4 - Chronic kidney disease, stage 4 (severe) Status: Acute (8) ARF (acute renal failure) ICD Codes: N17.9 - ARF (acute renal failure) Status: Acute Plan Patient has been non oliguric, Creatinine is still elevated. K is normal, Follow urine out put and BMP. Has proteinuria, serology negative. Added Phoslo as Po4 is elevated and calcitriol as Calcium is low. BP is better. Follow urine out put and watch for any renal recovery. Got the PermCath , has poor flow from Vascath. The Kidney Biopsy showing Diabetic and Hypertensive renal disease. Seen by vascular, will get AVF soon. HD to continue as per schedule. Will need out patient HD arrangement also. Problem Qualifiers (1) Diabetes mellitus: (2) Hypertension: Qualified Codes: I10 - Essential (primary) hypertension (3) ARF (acute renal failure): Zoey Carbone MD Jan 11, 2017 16:34
[2017-01-11 20:00] VITALS: BP 123/71; PULSE 87; RESP 18; TEMP 99.3; O2SAT 95
[2017-01-11] MEDS: CHLORHEXIDINE 0.12% (ORAL KIT) 15 ML CUP MT SCH (20:00)
[2017-01-11] MEDS: INSULIN DETEMIR 100 UNITS/ML VIAL SQ SCH (20:33)
[2017-01-11] MEDS: MORPHINE SULFATE 4 MG/ML INJ IV PUSH PRN (21:40)
[2017-01-12] VITALS: BP 148/76; PULSE 84; RESP 18; TEMP 99.2; O2SAT 96
[2017-01-12] MEDS: INSULIN NovoLIN REGULAR SUPPLEMENTAL SCALE SQ SCH ×3 (01:00→12:00)
[2017-01-12] MEDS: cloNIDine HCL 0.3 MG TAB PO SCH ×2 (01:00→09:09)
[2017-01-12 04:00] VITALS: BP 128/69; PULSE 74; RESP 16; TEMP 98.6; O2SAT 96
[2017-01-12] MEDS: CHLORHEXIDINE GLUCONATE 2 % 1 PACK (2 CLOTHS) TOP SCH (04:00)
[2017-01-12] MEDS: hydrALAZINE HCL 50 MG TAB PO SCH ×3 (06:19→21:58)
[2017-01-12 08:00] VITALS: BP 133/67; PULSE 77; RESP 20; TEMP 98.1; O2SAT 96
[2017-01-12] MEDS: SODIUM CHLORIDE 0.9% FLUSH 10 ML FLUSH IVF SCH (09:00)
[2017-01-12] MEDS: SODIUM CHLORIDE 0.9% FLUSH 10 ML FLUSH IV FLUSH SCH ×2 (09:00→21:57)
[2017-01-12] MEDS: ARTIFICIAL TEARS OPTH SOLN 15 ML BTL EACH EYE SCH (09:00)
[2017-01-12] MEDS: TAMSULOSIN HCL 0.4 MG CAP PO SCH (09:08)
[2017-01-12] MEDS: CALCIUM ACETATE 667 MG CAP PO SCH ×3 (09:08→18:00)
[2017-01-12] MEDS: ASPIRIN 81 MG CHEW TAB CHEW SCH (09:08)
[2017-01-12] MEDS: CARVEDILOL 6.25 MG TAB PO SCH ×2 (09:08→21:56)
[2017-01-12] MEDS: HEPARIN SODIUM - SQ 10,000 UNITS/ML VIAL SQ SCH ×2 (09:08→21:56)
[2017-01-12] MEDS: CALCITRIOL 0.25 MCG CAP PO SCH (09:08)
[2017-01-12] MEDS: TIOTROPIUM BROMIDE 18 MCG INH INH SCH (09:09)
[2017-01-12] MEDS: INSULIN ASPART 1,000 UNITS/10 ML VIAL SQ SCH ×2 (09:09→12:00)
[2017-01-12] MEDS: BUDESONIDE-FORMOTEROL 160/4.5 MCG INHALER INH SCH ×2 (09:09→21:00)
--- NOTE | 2017-01-12 10:26 | HHI.PR ---
Subjective Remarks Follow-up for ESRD. The patient states that he is doing well. He has been having a cough productive with phlegm. Low-grade fever last night. Objective Vitals Vital Signs Date Time Temp Pulse Resp B/P (MAP) Pulse Ox O2 Delivery O2 Flow Rate FiO2 01/12/17 08:00 98.1 77 20 133/67 (89) 96 01/12/17 04:00 98.6 74 16 128/69 (88) 96 01/12/17 00:00 99.2 84 18 148/76 (100) 96 01/11/17 22:30 21 01/11/17 20:52 Nasal Cannula 2.00 01/11/17 20:00 99.3 87 18 123/71 (88) 95 01/11/17 16:00 97.5 92 18 122/66 (84) 97 01/11/17 12:00 98.8 84 18 130/63 (85) 97 01/11/17 11:15 84 16 129/71 (90) 99 Nasal Cannula 2 01/11/17 11:00 85 16 136/72 (93) 98 Nasal Cannula 2 01/11/17 10:44 99.6 86 16 149/73 (98) 100 Nasal Cannula 2 I/O 01/11/17 01/11/17 01/11/17 01/12/17 01/12/17 01/12/17 07:00 15:00 23:00 07:00 15:00 23:00 Intake Total 440 ml 600 ml 360 ml 0 ml Output Total 1 ml Balance 440 ml 600 ml 360 ml -1 ml Intake Oral 440 ml 360 ml 0 ml IV Total 600 ml Output Urine Total 1 ml # Voids 1 0 # Bowel Movements 2 0 1 Result Diagram: 01/11/17 0916 Imaging Last Impressions Carotid Artery Ultrasound 01/10/17 0000 Signed Impressions: Service Date/Time: Tuesday, January 10, 2017 12:25 - CONCLUSION: Negative examination for a hemodynamically significant carotid stenosis. Marek Burnett MD FACR Upper Extremity Ultrasound 01/05/17 0000 Signed Impressions: Service Date/Time: Thursday, January 05, 2017 18:56 - CONCLUSION: Normal examination. Ji Martinez MD Renal Biopsy CT 01/03/17 0000 Signed Impressions: Service Date/Time: Tuesday, January 03, 2017 13:28 - CONCLUSION: Uncomplicated CT guided biopsy. Ji Cedillo MD Central Venous Line 01/03/17 0000 Signed Impressions: Service Date/Time: Tuesday, January 03, 2017 00:00 - CONCLUSION: Uncomplicated catheter removal. Filiberto Rodarte MD Catheter Placement X-Ray 01/03/17 0000 Signed Impressions: Service Date/Time: Tuesday, January 03, 2017 14:27 - CONCLUSION: Uncomplicated PermaCath placement as above. Filiberto Rodarte MD Chest X-Ray 12/13/16 0600 Signed Impressions: Service Date/Time: Tuesday, December 13, 2016 04:54 - CONCLUSION: Persistent lobar consolidation left lower lung. Jose Roberto Cheema MD Chest CT 12/08/16 0000 Signed Impressions: Service Date/Time: Thursday, December 08, 2016 14:02 - CONCLUSION: 1. Bilateral lower lobe consolidating airspace disease. 2. Small to moderate bilateral pleural effusions; larger on the left. 3. Cardiomegaly. 4. Endotracheal and nasogastric tubes in good position. Tutu Christianson MD Renal Ultrasound 12/07/16 0000 Signed Impressions: Service Date/Time: November 07:54 - CONCLUSION: Unremarkable and stable bilateral renal ultrasound. No evidence of hydronephrosis. Baron Medrano MD Objective Remarks GENERAL: Well-developed well-nourished. Appears a bit diaphoretic. In no acute distress. Primarily Estonian-speaking. SKIN: Warm and dry. Dialysis catheter anterior right chest wall. Surgical incision left arm. HEENT: Normocephalic. Pupils equal and round. Mucous membranes pink and moist. CARDIOVASCULAR: Regular rate and rhythm. No murmur appreciated. RESPIRATORY: No accessory muscle use. Clear to auscultation. Breath sounds equal bilaterally. GASTROINTESTINAL: Abdomen soft, non-tender, nondistended. Bowel sounds x4. MUSCULOSKELETAL: Left upper extremity surgical site with Steri-Strips in place, no erythema or drainage. No clubbing or cyanosis. No edema. NEUROLOGICAL: Awake and alert. No focal neurological deficits. Moves upper and lower extremities spontaneously. Normal speech. PSYCHIATRIC: Appropriate mood and affect; insight and judgment normal. Procedures Echo 12/07/2016 Mildly dilated left ventricle. Wall thickness is normal. The left ventricular systolic function is normal with an estimated ejection fraction is 45-50%. There is distinct regional wall motion abnormalities with akinetic apex and possibly clot at the apex. Consider repeating study with contrast/Definity to better asses apex The right ventriclar size is upper limits of normal. The left atrial size is moderately dilated. The right atrial size is moderately dilated. [id number] mitral valve regurgitation. There is mild tricuspid valve regurgitation. There is estimated mild pulmonary hypertension present (range 40-50 mmHg). The pulmonary valve is not well visualized. The inferior vena cava is dilated. There is less than 50% respiratory change in dimension of the inferior vena cava (abnormal). A/P Problem List: (1) Respiratory failure ICD Code: J96.90 - Respiratory failure, unspecified, unspecified whether with hypoxia or hypercapnia Status: Acute (2) Sepsis ICD Code: A41.9 - Sepsis, unspecified organism Status: Acute (3) Pneumonia ICD Code: J18.9 - Pneumonia, unspecified organism Status: Acute (4) left atrial thrombus Status: Acute (5) NSTEMI (non-ST elevated myocardial infarction) ICD Code: I21.4 - Non-ST elevation (NSTEMI) myocardial infarction Status: Resolved (6) ARF (acute renal failure) ICD Code: N17.9 - ARF (acute renal failure) Status: Acute (7) Diabetes mellitus ICD Code: E11.9 - Diabetes mellitus Status: Chronic (8) Morbid obesity ICD Code: E66.01 - Morbid (severe) obesity due to excess calories Status: Acute (9) Severe chronic obstructive pulmonary disease ICD Code: J44.9 - Chronic obstructive pulmonary disease, unspecified Status: Acute (10) CKD (chronic kidney disease) stage 4, GFR 15-29 ml/min ICD Code: N18.4 - Chronic kidney disease, stage 4 (severe) Status: Acute Assessment and Plan Mr. Mehta is a 66-year-old male with medical history significant for hypertension and diabetes and CVA who presented to the hospital with a chief complaint of shortness of breath and chest pain. The patient was diagnosed with NSTEMI. Echo was performed which was concerning for thrombus, but study was limited and a repeat was suggested. He has history of chronic kidney disease but worsening of his creatinine was noted. He was seen and evaluated by nephrology who started the patient on hemodialysis. CKD stage IV with GFR 15-29. Acute renal failure progressing to ESRD - nephrology on board, started on hemodialysis. - PermaCath placed. Vascular surgery unable to place LUE AVF 01/11. - Kidney biopsy on 01/03/2017 --> diffuse and nodular diabetic glomerulosclerosis , segmental and global glomerular sclerosis, interstitial fibrosis and tubular atrophy severe. S/P acute respiratory failure secondary to bilateral lower lobe pneumonias/ community acquired - Urine antigens, sputum culture, blood cultures were all negative. S/p abx treatment course with azithromycin and Rocephin -Resolved COPD - Symbicort and Spiriva - Continue albuterol neb. NSTEMI Hypertension - Echo performed December 07 showed distinct regional wall abnormalities with a possible clot in the apex. - echo with Definity contrast did not appear to show any clots in LV. - Cardiology was consulted, stable from a cardiac standpoint and recommended continued aggressive risk factor modification - ASA 81 mg daily. Coreg 6.25 mg BID. Norvasc 10 mg daily. Clonidine to 0.3 mg po TID and hydralazine 100 mg by mouth daily 8 hour Diabetes mellitus - Continue Levemir 35 units QHS and sliding scale insulin. - pre-meal insulin 7 units TIDAC - Monitor Accu-Cheks and adjust regimen as indicated BPH - continue Tamsulosin. 01/12 complaining of productive cough today. Temp 99.3 last night, afebrile today, possibly post operative. -Check chest x-ray -Start guaifenesin -Check CBC and BMP -Acapella -O2 if needed Heparin SQ for DVT prophylaxis. Discharge plan: Pending outpatient dialysis arrangements. Problem Qualifiers (1) Sepsis: (2) Pneumonia: (3) ARF (acute renal failure): (4) Diabetes mellitus: Gordo Salazar Jan 12, 2017 10:26
[2017-01-12 12:00] VITALS: BP 120/63; PULSE 65; RESP 20; TEMP 97.8; O2SAT 96
--- NOTE | 2017-01-12 12:05 | RADRPT ---
EXAM DATE/TIME: 01/12/2017 11:15 [facility] COMPARISON: CHEST SINGLE AP, December 13, 2016, 4:54. INDICATIONS : Cough MEDICAL HISTORY : Hypertension. Hypercholesterolemia. Chronic obstructive pulmonary disease. cerebralvascular accid ent, asthma, diabetes SURGICAL HISTORY : None. ENCOUNTER: Initial ACUITY: 1 week PAIN SCORE: Non-responsive. LOCATION: Bilateral chest FINDINGS: Dialysis catheter in good position. The lungs are clear. The heart and pulmonary vascularity are no rmal. The portion of the bony skeleton visualized is unremarkable. CONCLUSION: Dialysis catheter in good position. The lungs are clear. Marek Burnett MD FACR on January 12, 2017 at 12:03 Board Certified Radiologist. This report was verified electronically.
[2017-01-12] MEDS: guaiFENesin E.R. 600 MG TAB PO SCH ×2 (13:20→21:55)
[2017-01-12 16:00] VITALS: BP 125/68; PULSE 70; RESP 20; TEMP 97; O2SAT 94
--- NOTE | 2017-01-12 19:33 | HHI.NPPN ---
Subjective History of Present Illness 66-year-old male with past medical history of hypertension, diabetes mellitus, history of cerebrovascular accident with left-sided weakness, hyperlipidemia, bronchial asthma, chronic kidney disease who was admitted because of shortness of breath and chest pain. I was called to see the patient because of elevated BUN and creatinine. The patient was diagnosed here with non-ST elevation [place]. The patient has history of chronic kidney disease. Additional Remarks Patient is alert, not in distress, has mild SOB. Objective Data Data 01/12/17 01/13/17 19:00 07:00 Intake Total 360 ml Output Total 3000 ml Balance 360 ml -3000 ml Intake Oral 360 ml Hemodialysis 3000 ml # Voids 0 # Bowel Movements 0 Vital Signs Date Time Temp Pulse Resp B/P (MAP) Pulse Ox O2 Delivery O2 Flow Rate FiO2 01/12/17 16:00 97.0 70 20 125/68 (87) 94 01/12/17 12:00 97.8 65 20 120/63 (82) 96 01/12/17 08:00 98.1 77 20 133/67 (89) 96 01/12/17 08:00 Nasal Cannula 2.00 01/12/17 04:00 98.6 74 16 128/69 (88) 96 01/12/17 00:00 99.2 84 18 148/76 (100) 96 01/11/17 22:30 21 01/11/17 20:52 Nasal Cannula 2.00 01/11/17 20:00 99.3 87 18 123/71 (88) 95 -: 01/11/17 0916 Physical Exam General Appearance: No Acute Distress, Comfortable Eyes Eye Exam: Pupils Equal Throat Throat Exam: Oral Mucosa [place] & Moist Neck Neck Exam: Neck Supple Pulmonary Resp Exam: No Distress, Rhonchi, Decreased Bases, Diminished Breath Sounds Cardiology CV Exam: Regular, Normal Sinus Rhythm Gastrointestinal/Abdomen GI Exam: Soft, Non-Tender, Bowel Sounds Present Extremeties Extremities Exam: Moderate Edema Neurologic Neuro Exam: Alert, Awake Psychiatric Psych Exam: Appropriate Responses Assessment/Plan Assessment Summary: WILLIE/Acute Renal Failure, CHF, CKD Stage IV Problem List: (1) NSTEMI (non-ST elevated myocardial infarction) ICD Codes: I21.4 - Non-ST elevation (NSTEMI) myocardial infarction Status: Resolved (2) Diabetes mellitus ICD Codes: E11.9 - Diabetes mellitus Status: Chronic (3) Asthma ICD Codes: J45.909 - Asthma Status: Chronic (4) Shortness of breath ICD Codes: R06.02 - Shortness of breath Status: Acute (5) Leg edema ICD Codes: R60.0 - Leg edema Status: Acute (6) Hypertension ICD Codes: I10 - Hypertension Status: Chronic (7) CKD (chronic kidney disease) stage 4, GFR 15-29 ml/min ICD Codes: N18.4 - Chronic kidney disease, stage 4 (severe) Status: Acute (8) ARF (acute renal failure) ICD Codes: N17.9 - ARF (acute renal failure) Status: Acute Plan Patient has been non oliguric, Creatinine is still elevated. K is normal, Follow urine out put and BMP. Has proteinuria, serology negative. Added Phoslo as Po4 is elevated and calcitriol as Calcium is low. BP is better. Follow urine out put and watch for any renal recovery. Got the PermCath , has poor flow from Vascath. The Kidney Biopsy showing Diabetic and Hypertensive renal disease. Seen by vascular, will get AVF soon. HD done today 3 L off Problem Qualifiers (1) Diabetes mellitus: (2) Hypertension: Qualified Codes: I10 - Essential (primary) hypertension (3) ARF (acute renal failure): Shawn Nye MD Jan 12, 2017 19:33
[2017-01-12 20:00] VITALS: BP 168/84; PULSE 80; RESP 22; TEMP 98.6; O2SAT 96
[2017-01-12] MEDS: CHLORHEXIDINE 0.12% (ORAL KIT) 15 ML CUP MT SCH (20:00)
[2017-01-12] MEDS: INSULIN DETEMIR 100 UNITS/ML VIAL SQ SCH (21:57)
[2017-01-13] VITALS (9 sets, daily range): BP systolic 90–154; BP diastolic 62–80; PULSE 64–88; RESP 16–21; TEMP 97.7–99; O2SAT 94–100
[2017-01-13] MEDS: cloNIDine HCL 0.3 MG TAB PO SCH ×3 (00:03→18:20)
[2017-01-13] MEDS: INSULIN NovoLIN REGULAR SUPPLEMENTAL SCALE SQ SCH ×4 (00:09→18:00)
[2017-01-13] MEDS: CHLORHEXIDINE GLUCONATE 2 % 1 PACK (2 CLOTHS) TOP SCH (04:00)
[2017-01-13] MEDS: MORPHINE SULFATE 4 MG/ML INJ IV PUSH PRN (05:57)
[2017-01-13] MEDS: hydrALAZINE HCL 50 MG TAB PO SCH ×3 (05:59→21:32)
[2017-01-13] MEDS: INSULIN ASPART 1,000 UNITS/10 ML VIAL SQ SCH ×3 (08:00→17:00)
[2017-01-13] MEDS: CHLORHEXIDINE 0.12% (ORAL KIT) 15 ML CUP MT SCH ×2 (08:00→20:00)
[2017-01-13] MEDS: guaiFENesin E.R. 600 MG TAB PO SCH ×2 (09:04→21:32)
[2017-01-13] MEDS: CARVEDILOL 6.25 MG TAB PO SCH ×2 (09:04→21:32)
[2017-01-13] MEDS: TAMSULOSIN HCL 0.4 MG CAP PO SCH (09:04)
[2017-01-13] MEDS: CALCIUM ACETATE 667 MG CAP PO SCH ×3 (09:04→18:22)
[2017-01-13] MEDS: HEPARIN SODIUM - SQ 10,000 UNITS/ML VIAL SQ SCH ×2 (09:05→21:32)
[2017-01-13] MEDS: ASPIRIN 81 MG CHEW TAB CHEW SCH (09:05)
[2017-01-13] MEDS: TIOTROPIUM BROMIDE 18 MCG INH INH SCH (09:09)
[2017-01-13] MEDS: BUDESONIDE-FORMOTEROL 160/4.5 MCG INHALER INH SCH ×2 (09:09→21:35)
[2017-01-13] MEDS: SODIUM CHLORIDE 0.9% FLUSH 10 ML FLUSH IV FLUSH SCH ×2 (09:15→21:32)
[2017-01-13] MEDS: SODIUM CHLORIDE 0.9% FLUSH 10 ML FLUSH IVF SCH (09:16)
--- NOTE | 2017-01-13 10:21 | HHI.NPPN ---
Subjective History of Present Illness 66-year-old male with past medical history of hypertension, diabetes mellitus, history of cerebrovascular accident with left-sided weakness, hyperlipidemia, bronchial asthma, chronic kidney disease who was admitted because of shortness of breath and chest pain. I was called to see the patient because of elevated BUN and creatinine. The patient was diagnosed here with non-ST elevation [place]. The patient has history of chronic kidney disease. Additional Remarks Had dialysis yesterday. Not in distress. Objective Data Data Vital Signs Date Time Temp Pulse Resp B/P (MAP) Pulse Ox O2 Delivery O2 Flow Rate FiO2 01/13/17 08:00 98.5 74 18 149/65 (93) 94 01/13/17 04:00 98.3 70 20 100/62 (75) 98 01/13/17 00:00 98.0 88 16 154/80 (104) 99 01/12/17 20:00 98.6 80 22 168/84 (112) 96 01/12/17 19:45 95 Nasal Cannula 2.00 01/12/17 16:00 97.0 70 20 125/68 (87) 94 01/12/17 12:00 97.8 65 20 120/63 (82) 96 -: 01/11/17 0916 Physical Exam General Appearance: No Acute Distress, Comfortable Eyes Eye Exam: Pupils Equal Throat Throat Exam: Oral Mucosa [place] & Moist Neck Neck Exam: Neck Supple Pulmonary Resp Exam: No Distress, Rhonchi, Decreased Bases, Diminished Breath Sounds Cardiology CV Exam: Regular, Normal Sinus Rhythm Gastrointestinal/Abdomen GI Exam: Soft, Non-Tender, Bowel Sounds Present Extremeties Extremities Exam: Moderate Edema Neurologic Neuro Exam: Alert, Awake Psychiatric Psych Exam: Appropriate Responses Assessment/Plan Assessment Summary: WILLIE/Acute Renal Failure, CHF, CKD Stage IV Problem List: (1) NSTEMI (non-ST elevated myocardial infarction) ICD Codes: I21.4 - Non-ST elevation (NSTEMI) myocardial infarction Status: Resolved (2) Diabetes mellitus ICD Codes: E11.9 - Diabetes mellitus Status: Chronic (3) Asthma ICD Codes: J45.909 - Asthma Status: Chronic (4) Shortness of breath ICD Codes: R06.02 - Shortness of breath Status: Acute (5) Leg edema ICD Codes: R60.0 - Leg edema Status: Acute (6) Hypertension ICD Codes: I10 - Hypertension Status: Chronic (7) CKD (chronic kidney disease) stage 4, GFR 15-29 ml/min ICD Codes: N18.4 - Chronic kidney disease, stage 4 (severe) Status: Acute (8) ARF (acute renal failure) ICD Codes: N17.9 - ARF (acute renal failure) Status: Acute Plan Likely has ESRD. s/p renal biopsy: diabetic nephropathy with arteriosclerosis. Continue dialysis MWF. Problem Qualifiers (1) Diabetes mellitus: (2) Hypertension: Qualified Codes: I10 - Essential (primary) hypertension (3) ARF (acute renal failure): Salvador Mccarty MD Jan 13, 2017 10:21
[2017-01-13 10:34] LABS: AUTOMATED NEUTROPHIL # 3.2 TH/MM3 (1.8-7.7); BASOPHIL # 0.1 TH/MM3 (0-0.2); BASOPHIL % 1.2 % (0.0-2.0); EOSINOPHIL # 0.2 TH/MM3 (0-0.4); EOSINOPHIL % 3.8 % (0.0-4.0); HEMATOCRIT 30.4 % (39.0-51.0); HEMO FLAGS DIFF FINAL; LYMPH % 21.9 % (9.0-44.0); LYMPHOCYTE # 1.3 TH/MM3 (1.0-4.8); MEAN CORPUSCULAR HEMOGLOBIN 28.3 PG (27.0-34.0); MEAN CORPUSCULAR HGB CONC 32.2 % (32.0-36.0); MONO % 17.3 % (0.0-8.0); NEUT % 55.8 % (16.0-70.0); PLATELET COUNT 361 TH/MM3 (150-450); RED BLOOD COUNT 3.45 MIL/MM3 (4.50-5.90); RED CELL DISTRIBUTION WIDTH 16.1 % (11.6-17.2); WHITE BLOOD COUNT 5.8 TH/MM3 (4.0-11.0)
[2017-01-13 11:04] LABS: BICARBONATE 29.2 MEQ/L (21.0-32.0)
[2017-01-13] MEDS ORDERED: BENZOCAINE-MENTHOL (SUGAR FREE) 15 MG-3.6 MG LOZENGE BUCCAL ONE (11:15)
--- NOTE | 2017-01-13 11:17 | HHI.PR ---
Subjective Remarks Follow-up for ESRD. The patient is seen using [facility] translation services. The patient complains of sore throat/upper chest discomfort since his surgery. He reports his breathing is normal. He denies any further cough. He denies any fevers or chills. He has no other complaints or concerns today. Objective Vitals Vital Signs Date Time Temp Pulse Resp B/P (MAP) Pulse Ox O2 Delivery O2 Flow Rate FiO2 01/13/17 08:00 98.5 74 18 149/65 (93) 94 01/13/17 04:00 98.3 70 20 100/62 (75) 98 01/13/17 00:00 98.0 88 16 154/80 (104) 99 01/12/17 20:00 98.6 80 22 168/84 (112) 96 01/12/17 19:45 95 Nasal Cannula 2.00 01/12/17 16:00 97.0 70 20 125/68 (87) 94 01/12/17 12:00 97.8 65 20 120/63 (82) 96 I/O 01/12/17 01/12/17 01/12/17 01/13/17 01/13/17 01/13/17 07:00 15:00 23:00 07:00 15:00 23:00 Intake Total 0 ml 360 ml 480 ml Output Total 1 ml 3000 ml Balance -1 ml -2640 ml 480 ml Intake Oral 0 ml 360 ml 480 ml Output Urine Total 1 ml Hemodialysis 3000 ml # Voids 0 0 # Bowel Movements 1 0 0 Result Diagram: 01/13/17 1005 01/13/17 1005 Imaging Last Impressions Chest X-Ray 01/12/17 0000 Signed Impressions: Service Date/Time: Thursday, January 12, 2017 11:15 - CONCLUSION: Dialysis catheter in good position. The lungs are clear. Marek Burnett MD FACR Carotid Artery Ultrasound 01/10/17 0000 Signed Impressions: Service Date/Time: Tuesday, January 10, 2017 12:25 - CONCLUSION: Negative examination for a hemodynamically significant carotid stenosis. Marek Burnett MD FACR Upper Extremity Ultrasound 01/05/17 0000 Signed Impressions: Service Date/Time: Thursday, January 05, 2017 18:56 - CONCLUSION: Normal examination. Ji Martinez MD Renal Biopsy CT 01/03/17 0000 Signed Impressions: Service Date/Time: Tuesday, January 03, 2017 13:28 - CONCLUSION: Uncomplicated CT guided biopsy. Ji Cedillo MD Central Venous Line 01/03/17 0000 Signed Impressions: Service Date/Time: Tuesday, January 03, 2017 00:00 - CONCLUSION: Uncomplicated catheter removal. Filiberto Rodarte MD Catheter Placement X-Ray 01/03/17 Signed Impressions: Service Date/Time: Tuesday, January 03, 2017 14:27 - CONCLUSION: Uncomplicated PermaCath placement as above. Filiberto Rodarte MD Chest CT 12/08/16 0000 Signed Impressions: Service Date/Time: Thursday, December 08, 2016 14:02 - CONCLUSION: 1. Bilateral lower lobe consolidating airspace disease. 2. Small to moderate bilateral pleural effusions; larger on the left. 3. Cardiomegaly. 4. Endotracheal and nasogastric tubes in good position. Tutu Christianson MD Renal Ultrasound 12/07/16 0000 Signed Impressions: Service Date/Time: November 07:54 - CONCLUSION: Unremarkable and stable bilateral renal ultrasound. No evidence of hydronephrosis. Baron Medrano MD Objective Remarks GENERAL: Well-developed well-nourished. Appears a bit diaphoretic. In no acute distress. Primarily Dive[place]-speaking. SKIN: Warm and dry. Dialysis catheter anterior right chest wall. Surgical incision left arm. HEENT: Normocephalic. Pupils equal and round. Mucous membranes pink and moist. Oropharynx clear. CARDIOVASCULAR: Regular rate and rhythm. No murmur appreciated. RESPIRATORY: No accessory muscle use. Clear to auscultation. Breath sounds equal bilaterally. GASTROINTESTINAL: Abdomen soft, non-tender, nondistended. Bowel sounds x4. MUSCULOSKELETAL: Left upper extremity surgical site with Steri-Strips in place, no erythema or drainage. No clubbing or cyanosis. No edema. NEUROLOGICAL: Awake and alert. No focal neurological deficits. Moves upper and lower extremities spontaneously. Normal speech. PSYCHIATRIC: Appropriate mood and affect; insight and judgment normal. Procedures Echo 12/07/2016 Mildly dilated left ventricle. Wall thickness is normal. The left ventricular systolic function is normal with an estimated ejection fraction is 45-50%. There is distinct regional wall motion abnormalities with akinetic apex and possibly clot at the apex. Consider repeating study with contrast/Definity to better asses apex The right ventriclar size is upper limits of normal. The left atrial size is moderately dilated. The right atrial size is moderately dilated. [id number] mitral valve regurgitation. There is mild tricuspid valve regurgitation. There is estimated mild pulmonary hypertension present (range 40-50 mmHg). The pulmonary valve is not well visualized. The inferior vena cava is dilated. There is less than 50% respiratory change in dimension of the inferior vena cava (abnormal). A/P Problem List: (1) Respiratory failure ICD Code: J96.90 - Respiratory failure, unspecified, unspecified whether with hypoxia or hypercapnia Status: Acute (2) Sepsis ICD Code: A41.9 - Sepsis, unspecified organism Status: Acute (3) Pneumonia ICD Code: J18.9 - Pneumonia, unspecified organism Status: Acute (4) left atrial thrombus Status: Acute (5) NSTEMI (non-ST elevated myocardial infarction) ICD Code: I21.4 - Non-ST elevation (NSTEMI) myocardial infarction Status: Resolved (6) ARF (acute renal failure) ICD Code: N17.9 - ARF (acute renal failure) Status: Acute (7) Diabetes mellitus ICD Code: E11.9 - Diabetes mellitus Status: Chronic (8) Morbid obesity ICD Code: E66.01 - Morbid (severe) obesity due to excess calories Status: Acute (9) Severe chronic obstructive pulmonary disease ICD Code: J44.9 - Chronic obstructive pulmonary disease, unspecified Status: Acute (10) CKD (chronic kidney disease) stage 4, GFR 15-29 ml/min ICD Code: N18.4 - Chronic kidney disease, stage 4 (severe) Status: Acute Assessment and Plan Mr. Mehta is a 66-year-old male with medical history significant for hypertension and diabetes and CVA who presented to the hospital with a chief complaint of shortness of breath and chest pain. The patient was diagnosed with NSTEMI. Echo was performed which was concerning for thrombus, but study was limited and a repeat was suggested. He has history of chronic kidney disease but worsening of his creatinine was noted. He was seen and evaluated by nephrology who started the patient on hemodialysis. CKD stage IV with GFR 15-29. Acute renal failure progressing to ESRD - nephrology on board, started on hemodialysis. - PermaCath placed. Vascular surgery unable to place LUE AVF 01/11. - Kidney biopsy on 01/03/2017 --> diffuse and nodular diabetic glomerulosclerosis , segmental and global glomerular sclerosis, interstitial fibrosis and tubular atrophy severe. S/P acute respiratory failure secondary to bilateral lower lobe pneumonias/ community acquired - Urine antigens, sputum culture, blood cultures were all negative. S/p abx treatment course with azithromycin and Rocephin - Improved - Chest x-ray 01/12 clear and labs unremarkable for acute process - Continue guaifenesin and Acapella for cough - O2 if needed COPD - Symbicort and Spiriva - Continue albuterol neb. NSTEMI Hypertension - Echo performed December 07 showed distinct regional wall abnormalities with a possible clot in the apex. - echo with Definity contrast did not appear to show any clots in LV. - Cardiology was consulted, stable from a cardiac standpoint and recommended continued aggressive risk factor modification - ASA 81 mg daily. Coreg 6.25 mg BID. Norvasc 10 mg daily. Clonidine to 0.3 mg po TID and hydralazine 100 mg by mouth daily 8 hour Diabetes mellitus - Continue Levemir 35 units QHS and sliding scale insulin. - pre-meal insulin 7 units TIDAC - Monitor Accu-Cheks and adjust regimen as indicated BPH - continue Tamsulosin. Sore throat: Likely secondary to recent intubation. - Cepacol lozenge Deconditioning: PT recommends SNF, generalized weakness likely due to prolonged hospitalization and multiple medical conditions as above. - Continue PT Sunday through Sunday while admitted Heparin SQ for DVT prophylaxis. Discharge plan: Pending outpatient dialysis arrangements. Problem Qualifiers (1) Sepsis: (2) Pneumonia: (3) ARF (acute renal failure): (4) Diabetes mellitus: Gordo Salazar Jan 13, 2017 11:17
[2017-01-13] MEDS ORDERED: BENZOCAINE-MENTHOL (SUGAR FREE) 15 MG-3.6 MG LOZENGE BUCCAL PRN (13:00)
[2017-01-13] MEDS: CALCITRIOL 0.25 MCG CAP PO SCH (13:10)
--- NOTE | 2017-01-13 17:28 | MP ---
cc: MD ADRIANA,SRAVAN DATE OF SURGERY: 01/13/2017. PREOPERATIVE DIAGNOSIS: 1. Chronic renal failure. 2. Coronary artery disease. 3. Diabetes mellitus POSTOPERATIVE DIAGNOSIS: 1. Chronic renal failure. 2. Coronary artery disease. 3. Diabetes mellitus OPERATIVE PROCEDURE PERFORMED: Exploration of the left arm and antecubital vessels; attempted AV fistula left arm and closure. SURGEON: Sravan Urbina M.D. ANESTHESIA: General. ESTIMATED BLOOD LOSS: 10 cc. DESCRIPTION OF THE PROCEDURE IN DETAIL: The patient was prepped and draped in the usual sterile fashion and the wrist explored. Apparently somebody had been there before and there was an incision over the area of the wrist cephalic vein, which clearly is gone, so this was abandoned immediately. An incision was now made in the antecubital fossa and the area explored. The patient had an antecubital artery which was adequate for placement of an AV fistula and which measured about 4 mm in diameter. Unfortunately, the patient had completely clotted the antecubital vein and the basilic vein was minuscule about 2 mm. The cephalic vein was also minuscule about 3 mm and did not get any bigger. There were no options at this point to do either an AV fistula of the upper arm or to do an AV graft in face of the above anatomy. The area was therefore irrigated and the incision closed with 2-0 Vicryl and 4-0 Monocryl. The patient tolerated the procedure well. Sravan ALCARAZ/GABRIELE /11:29 AM /5:21 PM
[2017-01-13] MEDS: INSULIN DETEMIR 100 UNITS/ML VIAL SQ SCH (21:32)
[2017-01-14] VITALS (8 sets, daily range): BP systolic 106–144; BP diastolic 57–80; PULSE 61–76; RESP 17–20; TEMP 97–98.4; O2SAT 94–99
[2017-01-14] MEDS: cloNIDine HCL 0.3 MG TAB PO SCH ×4 (01:41→23:45)
[2017-01-14] MEDS: CHLORHEXIDINE GLUCONATE 2 % 1 PACK (2 CLOTHS) TOP SCH (04:00)
[2017-01-14] MEDS: hydrALAZINE HCL 50 MG TAB PO SCH ×3 (05:17→21:01)
[2017-01-14] MEDS: INSULIN NovoLIN REGULAR SUPPLEMENTAL SCALE SQ SCH ×4 (06:00→18:00)
[2017-01-14] MEDS: INSULIN ASPART 1,000 UNITS/10 ML VIAL SQ SCH ×3 (08:00→17:00)
--- NOTE | 2017-01-14 08:52 | HHI.PR ---
Subjective Remarks Follow-up for ESRD. Patient seen and examined, [employer] video interpreting used during visit. Denies any new acute events overnight. Denies any chest discomfort , abdominal pain, nausea or vomiting. Patient has been tolerating PO intake well. Pain controlled. Does complain of rectum pain. BP controlled. Afebrile. Explained to patient about inability for Dr. Ovalles to place AVF. All questions answered, patient understanding. Objective Vitals Vital Signs Date Time Temp Pulse Resp B/P (MAP) Pulse Ox O2 Delivery O2 Flow Rate FiO2 01/14/17 04:00 98.3 62 17 119/58 (78) 94 01/14/17 00:00 Nasal Cannula 2.00 01/14/17 00:00 98.4 76 18 144/68 (93) 99 01/13/17 21:00 Nasal Cannula 2.00 01/13/17 20:00 97.7 77 21 117/62 (80) 98 01/13/17 17:17 96 Nasal Cannula 2.00 01/13/17 16:00 99.0 68 18 113/68 (83) 97 01/13/17 13:11 99 Nasal Cannula 3.00 01/13/17 12:00 97.8 64 18 90/62 (71) 100 I/O 01/13/17 01/13/17 01/13/17 01/14/17 01/14/17 01/14/17 07:00 15:00 23:00 07:00 15:00 23:00 Intake Total 480 ml 480 ml Balance 480 ml 480 ml Intake Oral 480 ml 480 ml # Voids 0 2 1 # Bowel Movements 0 1 Result Diagram: 01/13/17 1005 01/13/17 1005 Imaging Last Impressions Chest X-Ray 01/12/17 0000 Signed Impressions: Service Date/Time: Thursday, January 12, 2017 11:15 - CONCLUSION: Dialysis catheter in good position. The lungs are clear. Marek Burnett MD FACR Carotid Artery Ultrasound 01/10/17 0000 Signed Impressions: Service Date/Time: Tuesday, January 10, 2017 12:25 - CONCLUSION: Negative examination for a hemodynamically significant carotid stenosis. Marek Burnett MD FACR Upper Extremity Ultrasound 01/05/17 0000 Signed Impressions: Service Date/Time: Thursday, January 05, 2017 18:56 - CONCLUSION: Normal examination. Ji Martinez MD Renal Biopsy CT 01/03/17 Signed Impressions: Service Date/Time: Tuesday, January 03, 2017 13:28 - CONCLUSION: Uncomplicated CT guided biopsy. Ji Cedillo MD Central Venous Line 01/03/17 Signed Impressions: Service Date/Time: Tuesday, January 03, 2017 00:00 - CONCLUSION: Uncomplicated catheter removal. Filiberto Rodarte MD Catheter Placement X-Ray 01/03/17 Signed Impressions: Service Date/Time: Tuesday, January 03, 2017 14:27 - CONCLUSION: Uncomplicated PermaCath placement as above. Filiberto Rodarte MD Chest CT 12/08/16 Signed Impressions: Service Date/Time: Thursday, December 08, 2016 14:02 - CONCLUSION: 1. Bilateral lower lobe consolidating airspace disease. 2. Small to moderate bilateral pleural effusions; larger on the left. 3. Cardiomegaly. 4. Endotracheal and nasogastric tubes in good position. Tutu Christianson MD Renal Ultrasound 12/07/16 Signed Impressions: Service Date/Time: November 07:54 - CONCLUSION: Unremarkable and stable bilateral renal ultrasound. No evidence of hydronephrosis. Baron Medrano MD Objective Remarks GENERAL: Well-developed well-nourished northern irish speaking male lying in [place] in no acute distress. SKIN: Warm and dry. Right SC vas cath in place, d/d/i. Surgical incision left arm. HEENT: Normocephalic. Pupils equal and round. Mucous membranes pink and moist. Oropharynx clear. CARDIOVASCULAR: Regular rate and rhythm. No murmur appreciated. S1 and S2 present. RESPIRATORY: No accessory muscle use. Clear to auscultation. Breath sounds equal bilaterally. GASTROINTESTINAL: Abdomen soft, non-tender, nondistended. Bowel sounds x4. MUSCULOSKELETAL: Left upper extremity surgical site with Steri-Strips in place, no erythema or drainage. No clubbing or cyanosis. No edema. NEUROLOGICAL: Awake and alert. No focal neurological deficits. Moves upper and lower extremities spontaneously. Normal speech. PSYCHIATRIC: Appropriate mood and affect; insight and judgment normal. Procedures Echo 12/07/2016 Mildly dilated left ventricle. Wall thickness is normal. The left ventricular systolic function is normal with an estimated ejection fraction is 45-50%. There is distinct regional wall motion abnormalities with akinetic apex and possibly clot at the apex. Consider repeating study with contrast/Definity to better asses apex The right ventriclar size is upper limits of normal. The left atrial size is moderately dilated. The right atrial size is moderately dilated. Kani-ah-mduxbsas mitral valve regurgitation. There is mild tricuspid valve regurgitation. There is estimated mild pulmonary hypertension present (range 40-50 mmHg). The pulmonary valve is not well visualized. The inferior vena cava is dilated. There is less than 50% respiratory change in dimension of the inferior vena cava (abnormal). A/P Problem List: (1) Respiratory failure ICD Code: J96.90 - Respiratory failure, unspecified, unspecified whether with hypoxia or hypercapnia Status: Acute (2) Sepsis ICD Code: A41.9 - Sepsis, unspecified organism Status: Acute (3) Pneumonia ICD Code: J18.9 - Pneumonia, unspecified organism Status: Acute (4) left atrial thrombus Status: Acute (5) NSTEMI (non-ST elevated myocardial infarction) ICD Code: I21.4 - Non-ST elevation (NSTEMI) myocardial infarction Status: Resolved (6) ARF (acute renal failure) ICD Code: N17.9 - ARF (acute renal failure) Status: Acute (7) Diabetes mellitus ICD Code: E11.9 - Diabetes mellitus Status: Chronic (8) Morbid obesity ICD Code: E66.01 - Morbid (severe) obesity due to excess calories Status: Acute (9) Severe chronic obstructive pulmonary disease ICD Code: J44.9 - Chronic obstructive pulmonary disease, unspecified Status: Acute (10) CKD (chronic kidney disease) stage 4, GFR 15-29 ml/min ICD Code: N18.4 - Chronic kidney disease, stage 4 (severe) Status: Acute Assessment and Plan Mr. Mehta is a 66-year-old male with medical history significant for hypertension and diabetes and CVA who presented to the hospital with a chief complaint of shortness of breath and chest pain. The patient was diagnosed with NSTEMI. Echo was performed which was concerning for thrombus, but study was limited and a repeat was suggested. He has history of chronic kidney disease but worsening of his creatinine was noted. He was seen and evaluated by nephrology who started the patient on hemodialysis. CKD stage IV with GFR 15-29. Acute renal failure progressing to ESRD - nephrology on board, started on hemodialysis. - PermaCath placed. Vascular surgery unable to find adequate vein for AVF. Will await nephrology further recommendations. - Kidney biopsy on 01/03/2017 --> diffuse and nodular diabetic glomerulosclerosis, segmental and global glomerular sclerosis, interstitial fibrosis and tubular atrophy severe. S/P acute respiratory failure secondary to bilateral lower lobe pneumonias/ community acquired - Urine antigens, sputum culture, blood cultures were all negative. S/p abx treatment course with azithromycin and Rocephin - Improved - Chest x-ray 01/12 clear and labs unremarkable for acute process - Continue guaifenesin and Acapella for cough - O2 if needed to keep sats >92%. COPD - Symbicort and Spiriva - Continue albuterol neb. NSTEMI Hypertension - Echo performed December 07 showed distinct regional wall abnormalities with a possible clot in the apex. - echo with Definity contrast did not appear to show any clots in LV. - Cardiology was consulted, stable from a cardiac standpoint and recommended continued aggressive risk factor modification - ASA 81 mg daily. Coreg 6.25 mg BID. Norvasc 10 mg daily. Clonidine to 0.3 mg po TID and hydralazine 50 mg by mouth daily 8 hour Diabetes mellitus - Continue Levemir 35 units QHS and sliding scale insulin. - pre-meal insulin 7 units TIDAC - Monitor Accu-Cheks and adjust regimen as indicated BPH - continue Tamsulosin. Sore throat: Likely secondary to recent intubation, improved today. Continue Cepacol lozenge as needed. Deconditioning: PT recommends SNF, generalized weakness likely due to prolonged hospitalization and multiple medical conditions as above. - Continue PT Sunday through Sunday while admitted Heparin SQ for DVT prophylaxis. Discharge Planning Discharge plan: Pending outpatient dialysis arrangements. Problem Qualifiers (1) Sepsis: (2) Pneumonia: (3) ARF (acute renal failure): (4) Diabetes mellitus: Tamy Sahu Jan 14, 2017 08:52
[2017-01-14] MEDS: CALCIUM ACETATE 667 MG CAP PO SCH ×3 (09:00→18:00)
[2017-01-14] MEDS: TIOTROPIUM BROMIDE 18 MCG INH INH SCH (09:00)
[2017-01-14] MEDS: HEPARIN SODIUM - SQ 10,000 UNITS/ML VIAL SQ SCH ×2 (09:00→21:02)
[2017-01-14] MEDS: BUDESONIDE-FORMOTEROL 160/4.5 MCG INHALER INH SCH ×2 (09:00→21:04)
[2017-01-14] MEDS: SODIUM CHLORIDE 0.9% FLUSH 10 ML FLUSH IVF SCH (09:00)
[2017-01-14] MEDS: SODIUM CHLORIDE 0.9% FLUSH 10 ML FLUSH IV FLUSH SCH ×2 (09:00→21:01)
[2017-01-14] MEDS: guaiFENesin E.R. 600 MG TAB PO SCH ×2 (11:57→21:01)
[2017-01-14] MEDS: ASPIRIN 81 MG CHEW TAB CHEW SCH (11:57)
[2017-01-14] MEDS: CALCITRIOL 0.25 MCG CAP PO SCH (11:57)
[2017-01-14] MEDS: CARVEDILOL 6.25 MG TAB PO SCH ×2 (11:57→21:01)
--- NOTE | 2017-01-14 11:59 | HHI.NPPN ---
Subjective History of Present Illness 66-year-old male with past medical history of hypertension, diabetes mellitus, history of cerebrovascular accident with left-sided weakness, hyperlipidemia, bronchial asthma, chronic kidney disease who was admitted because of shortness of breath and chest pain. I was called to see the patient because of elevated BUN and creatinine. The patient was diagnosed here with non-ST elevation [place]. The patient has history of chronic kidney disease. Additional Remarks An attempt was made for AVF placement, but it was abandoned as cephalic vein could not be visualized. Objective Data Data Vital Signs Date Time Temp Pulse Resp B/P (MAP) Pulse Ox O2 Delivery O2 Flow Rate FiO2 01/14/17 10:10 94 Nasal Cannula 2.00 01/14/17 04:00 98.3 62 17 119/58 (78) 94 01/14/17 00:00 Nasal Cannula 2.00 01/14/17 00:00 98.4 76 18 144/68 (93) 99 01/13/17 21:00 Nasal Cannula 2.00 01/13/17 20:00 97.7 77 21 117/62 (80) 98 01/13/17 17:17 96 Nasal Cannula 2.00 01/13/17 16:00 99.0 68 18 113/68 (83) 97 01/13/17 13:11 99 Nasal Cannula 3.00 01/13/17 12:00 97.8 64 18 90/62 (71) 100 -: 01/13/17 1005 01/13/17 1005 Physical Exam General Appearance: No Acute Distress, Comfortable Eyes Eye Exam: Pupils Equal Throat Throat Exam: Oral Mucosa [place] & Moist Neck Neck Exam: Neck Supple Pulmonary Resp Exam: No Distress, Rhonchi, Decreased Bases, Diminished Breath Sounds Cardiology CV Exam: Regular, Normal Sinus Rhythm Gastrointestinal/Abdomen GI Exam: Soft, Non-Tender, Bowel Sounds Present Extremeties Extremities Exam: Moderate Edema Neurologic Neuro Exam: Alert, Awake Psychiatric Psych Exam: Appropriate Responses Assessment/Plan Assessment Summary: WILLIE/Acute Renal Failure, CHF, CKD Stage IV Problem List: (1) NSTEMI (non-ST elevated myocardial infarction) ICD Codes: I21.4 - Non-ST elevation (NSTEMI) myocardial infarction Status: Resolved (2) Diabetes mellitus ICD Codes: E11.9 - Diabetes mellitus Status: Chronic (3) Asthma ICD Codes: J45.909 - Asthma Status: Chronic (4) Shortness of breath ICD Codes: R06.02 - Shortness of breath Status: Acute (5) Leg edema ICD Codes: R60.0 - Leg edema Status: Acute (6) Hypertension ICD Codes: I10 - Hypertension Status: Chronic Plan Likely has ESRD. s/p renal biopsy: diabetic nephropathy with arteriosclerosis. Continue dialysis MWF. Problem Qualifiers (1) Diabetes mellitus: (2) Hypertension: Qualified Codes: I10 - Essential (primary) hypertension Salvador Mccarty MD Jan 14, 2017 11:59
[2017-01-14] MEDS: CHLORHEXIDINE 0.12% (ORAL KIT) 15 ML CUP MT SCH (20:00)
[2017-01-14] MEDS: INSULIN DETEMIR 100 UNITS/ML VIAL SQ SCH (21:00)
[2017-01-14] MEDS: TAMSULOSIN HCL 0.4 MG CAP PO SCH (21:01)
[2017-01-14] MEDS: ARTIFICIAL TEARS OPTH SOLN 15 ML BTL EACH EYE SCH (21:05)
[2017-01-15 04:00] VITALS: BP 109/58; PULSE 64; RESP 20; TEMP 98; O2SAT 96
[2017-01-15] MEDS: CHLORHEXIDINE GLUCONATE 2 % 1 PACK (2 CLOTHS) TOP SCH (04:00)
[2017-01-15] MEDS: hydrALAZINE HCL 50 MG TAB PO SCH ×3 (05:26→21:35)
[2017-01-15] MEDS: INSULIN NovoLIN REGULAR SUPPLEMENTAL SCALE SQ SCH ×5 (05:26→23:44)
[2017-01-15 08:00] VITALS: BP 112/62; PULSE 69; RESP 20; TEMP 97.6; O2SAT 98
[2017-01-15] MEDS: CHLORHEXIDINE 0.12% (ORAL KIT) 15 ML CUP MT SCH ×2 (08:00→20:00)
[2017-01-15] MEDS: SODIUM CHLORIDE 0.9% FLUSH 10 ML FLUSH IVF SCH (09:00)
[2017-01-15] MEDS: CALCIUM ACETATE 667 MG CAP PO SCH ×3 (09:59→17:44)
[2017-01-15] MEDS: cloNIDine HCL 0.3 MG TAB PO SCH ×3 (09:59→23:38)
[2017-01-15] MEDS: guaiFENesin E.R. 600 MG TAB PO SCH ×2 (09:59→21:35)
[2017-01-15] MEDS: ASPIRIN 81 MG CHEW TAB CHEW SCH (09:59)
[2017-01-15] MEDS: CARVEDILOL 6.25 MG TAB PO SCH ×2 (09:59→21:35)
[2017-01-15] MEDS: SODIUM CHLORIDE 0.9% FLUSH 10 ML FLUSH IV FLUSH SCH ×2 (10:02→21:35)
[2017-01-15] MEDS: TIOTROPIUM BROMIDE 18 MCG INH INH SCH (10:03)
[2017-01-15] MEDS: ARTIFICIAL TEARS OPTH SOLN 15 ML BTL EACH EYE SCH ×3 (10:04→17:50)
[2017-01-15] MEDS: BUDESONIDE-FORMOTEROL 160/4.5 MCG INHALER INH SCH ×2 (10:04→21:34)
[2017-01-15] MEDS: CALCITRIOL 0.25 MCG CAP PO SCH (10:13)
[2017-01-15] MEDS: HEPARIN SODIUM - SQ 10,000 UNITS/ML VIAL SQ SCH ×2 (10:14→21:35)
[2017-01-15] MEDS: INSULIN ASPART 1,000 UNITS/10 ML VIAL SQ SCH ×3 (10:17→17:46)
--- NOTE | 2017-01-15 10:58 | HHI.PR ---
Subjective Remarks Follow-up for ESRD. Patient seen and examined, [employer] video interpreting used during visit. Patient slept well. Tolerating PO intake. Spoke to patient regarding treatment plan and working on arrangements for rehab and placement with outpatient dialysis. Denies any recent fever, chills, cough, ab pain, n/v/ d. Does state that his rectum itches. Cream placed and provided. Positive BM. Afebrile. Tolerating PO intake. Throat hurts, lozenge offered. Objective Vitals Vital Signs Date Time Temp Pulse Resp B/P (MAP) Pulse Ox O2 Delivery O2 Flow Rate FiO2 01/15/17 08:00 97.6 69 20 112/62 (79) 98 01/15/17 04:00 98.0 64 20 109/58 (75) 96 01/15/17 04:00 96 Room Air 01/15/17 00:00 Nasal Cannula 2.00 01/14/17 23:43 98.0 73 20 143/80 (101) 99 01/14/17 20:30 Nasal Cannula 2.00 01/14/17 20:00 97.5 63 18 119/61 (80) 97 01/14/17 16:00 97.0 61 18 106/57 (73) 97 01/14/17 12:00 97.2 67 20 127/62 (83) 98 I/O 01/14/17 01/14/17 01/14/17 01/15/17 01/15/17 01/15/17 07:00 15:00 23:00 07:00 15:00 23:00 Intake Total 360 ml Balance 360 ml Intake Oral 360 ml # Voids 1 0 2 # Bowel Movements 0 Result Diagram: 01/13/17 1005 01/13/17 1005 Imaging Last Impressions Chest X-Ray 01/12/17 0000 Signed Impressions: Service Date/Time: Thursday, January 12, 2017 11:15 - CONCLUSION: Dialysis catheter in good position. The lungs are clear. Marek Burnett MD FACR Carotid Artery Ultrasound 01/10/17 0000 Signed Impressions: Service Date/Time: Tuesday, January 10, 2017 12:25 - CONCLUSION: Negative examination for a hemodynamically significant carotid stenosis. Marek Burnett MD FACR Upper Extremity Ultrasound 01/05/17 0000 Signed Impressions: Service Date/Time: Thursday, January 05, 2017 18:56 - CONCLUSION: Normal examination. Ji Martinez MD Renal Biopsy CT 01/03/17 Signed Impressions: Service Date/Time: Tuesday, January 03, 2017 13:28 - CONCLUSION: Uncomplicated CT guided biopsy. iJ Cedillo MD Central Venous Line 01/03/17 Signed Impressions: Service Date/Time: Tuesday, January 03, 2017 00:00 - CONCLUSION: Uncomplicated catheter removal. Filiberto Rodarte MD Catheter Placement X-Ray 01/03/17 Signed Impressions: Service Date/Time: Tuesday, January 03, 2017 14:27 - CONCLUSION: Uncomplicated PermaCath placement as above. Filiberto Rodarte MD Chest CT 12/08/16 Signed Impressions: Service Date/Time: Thursday, December 08, 2016 14:02 - CONCLUSION: 1. Bilateral lower lobe consolidating airspace disease. 2. Small to moderate bilateral pleural effusions; larger on the left. 3. Cardiomegaly. 4. Endotracheal and nasogastric tubes in good position. Tutu Christianson MD Renal Ultrasound 12/07/16 Signed Impressions: Service Date/Time: November 07:54 - CONCLUSION: Unremarkable and stable bilateral renal ultrasound. No evidence of hydronephrosis. Baron Medrano MD Objective Remarks GENERAL: Well-developed well-nourished palestinian speaking male lying in nik[place] in no acute distress. SKIN: Warm and dry. Right SC vas cath in place, d/d/i. Surgical incision left arm. Sacrum skin tear noted, pink in color, no drainage, cream applied. HEENT: Normocephalic. Pupils equal and round. Mucous membranes pink and moist. Oropharynx clear. CARDIOVASCULAR: Regular rate and rhythm. No murmur appreciated. S1 and S2 present. RESPIRATORY: No accessory muscle use. Clear to auscultation. Breath sounds equal bilaterally. GASTROINTESTINAL: Abdomen soft, non-tender, nondistended. Bowel sounds x4. MUSCULOSKELETAL: Left upper extremity surgical site with Steri-Strips in place, no erythema or drainage. No clubbing or cyanosis. No edema. NEUROLOGICAL: Awake and alert. No focal neurological deficits. Moves upper and lower extremities spontaneously. Normal speech. PSYCHIATRIC: Appropriate mood and affect; insight and judgment normal. Procedures Echo 12/07/2016 Mildly dilated left ventricle. Wall thickness is normal. The left ventricular systolic function is normal with an estimated ejection fraction is 45-50%. There is distinct regional wall motion abnormalities with akinetic apex and possibly clot at the apex. Consider repeating study with contrast/Definity to better asses apex The right ventriclar size is upper limits of normal. The left atrial size is moderately dilated. The right atrial size is moderately dilated. [id number] mitral valve regurgitation. There is mild tricuspid valve regurgitation. There is estimated mild pulmonary hypertension present (range 40-50 mmHg). The pulmonary valve is not well visualized. The inferior vena cava is dilated. There is less than 50% respiratory change in dimension of the inferior vena cava (abnormal). A/P Problem List: (1) Respiratory failure ICD Code: J96.90 - Respiratory failure, unspecified, unspecified whether with hypoxia or hypercapnia Status: Acute (2) Sepsis ICD Code: A41.9 - Sepsis, unspecified organism Status: Acute (3) Pneumonia ICD Code: J18.9 - Pneumonia, unspecified organism Status: Acute (4) left atrial thrombus Status: Acute (5) NSTEMI (non-ST elevated myocardial infarction) ICD Code: I21.4 - Non-ST elevation (NSTEMI) myocardial infarction Status: Resolved (6) ARF (acute renal failure) ICD Code: N17.9 - ARF (acute renal failure) Status: Acute (7) Diabetes mellitus ICD Code: E11.9 - Diabetes mellitus Status: Chronic (8) Morbid obesity ICD Code: E66.01 - Morbid (severe) obesity due to excess calories Status: Acute (9) Severe chronic obstructive pulmonary disease ICD Code: J44.9 - Chronic obstructive pulmonary disease, unspecified Status: Acute (10) CKD (chronic kidney disease) stage 4, GFR 15-29 ml/min ICD Code: N18.4 - Chronic kidney disease, stage 4 (severe) Status: Acute Assessment and Plan Mr. Mehta is a 66-year-old male with medical history significant for hypertension and diabetes and CVA who presented to the hospital with a chief complaint of shortness of breath and chest pain. The patient was diagnosed with NSTEMI. Echo was performed which was concerning for thrombus, but study was limited and a repeat was suggested. He has history of chronic kidney disease but worsening of his creatinine was noted. He was seen and evaluated by nephrology who started the patient on hemodialysis. CKD stage IV with GFR 15-29. Acute renal failure progressing to ESRD - nephrology on board, started on hemodialysis. - PermaCath placed. Vascular surgery unable to find adequate vein for AVF. Will await nephrology further recommendations. - Kidney biopsy on 01/03/2017 --> diffuse and nodular diabetic glomerulosclerosis, segmental and global glomerular sclerosis, interstitial fibrosis and tubular atrophy severe. S/P acute respiratory failure secondary to bilateral lower lobe pneumonias/ community acquired - Urine antigens, sputum culture, blood cultures were all negative. S/p abx treatment course with azithromycin and Rocephin - Improved - Chest x-ray 01/12 clear and labs unremarkable for acute process - Continue guaifenesin and Acapella for cough - O2 if needed to keep sats >92%. COPD - Symbicort and Spiriva - Continue albuterol neb. NSTEMI Hypertension - Echo performed December 07 showed distinct regional wall abnormalities with a possible clot in the apex. - echo with Definity contrast did not appear to show any clots in LV. - Cardiology was consulted, stable from a cardiac standpoint and recommended continued aggressive risk factor modification - ASA 81 mg daily. Coreg 6.25 mg BID. Norvasc 10 mg daily. Clonidine to 0.3 mg po TID and hydralazine 50 mg by mouth daily 8 hour Diabetes mellitus - Continue Levemir 35 units QHS and sliding scale insulin. - pre-meal insulin 8 units TIDAC - Monitor Accu-Cheks and adjust regimen as indicated BPH - continue Tamsulosin. Sore throat: Likely secondary to recent intubation. Continue Cepacol lozenge as needed. Deconditioning: PT recommends SNF, generalized weakness likely due to prolonged hospitalization and multiple medical conditions as above. - Continue PT Sunday through Sunday while admitted Heparin SQ for DVT prophylaxis. Discharge Planning Discharge plan: Pending outpatient dialysis arrangements. Problem Qualifiers (1) Sepsis: (2) Pneumonia: (3) ARF (acute renal failure): (4) Diabetes mellitus: Tamy Sahu Jan 15, 2017 10:58
[2017-01-15 12:00] VITALS: BP 113/63; PULSE 68; RESP 20; TEMP 98.5; O2SAT 94
[2017-01-15 16:00] VITALS: BP 129/71; PULSE 66; RESP 20; TEMP 98.3; O2SAT 94
--- NOTE | 2017-01-15 19:59 | HHI.NPPN ---
Subjective History of Present Illness 66-year-old male with past medical history of hypertension, diabetes mellitus, history of cerebrovascular accident with left-sided weakness, hyperlipidemia, bronchial asthma, chronic kidney disease who was admitted because of shortness of breath and chest pain. I was called to see the patient because of elevated BUN and creatinine. The patient was diagnosed here with non-ST elevation [place]. The patient has history of chronic kidney disease. Additional Remarks Patient is alert, not in distress, not eating well, has nausea, no vomiting or abd. pain. Objective Data Data 01/15/17 01/16/17 19:00 07:00 Intake Total 120 ml Balance 120 ml Intake Oral 120 ml Vital Signs Date Time Temp Pulse Resp B/P (MAP) Pulse Ox O2 Delivery O2 Flow Rate FiO2 01/15/17 16:00 98.3 66 20 129/71 (90) 94 01/15/17 12:00 98.5 68 20 113/63 (80) 94 01/15/17 08:00 97.6 69 20 112/62 (79) 98 01/15/17 04:00 98.0 64 20 109/58 (75) 96 01/15/17 04:00 96 Room Air 01/15/17 00:00 Nasal Cannula 2.00 01/14/17 23:43 98.0 73 20 143/80 (101) 99 01/14/17 20:30 Nasal Cannula 2.00 01/14/17 20:00 97.5 63 18 119/61 (80) 97 -: 01/13/17 1005 01/13/17 1005 Physical Exam General Appearance: No Acute Distress, Comfortable Eyes Eye Exam: Pupils Equal Throat Throat Exam: Oral Mucosa [place] & Moist Neck Neck Exam: Neck Supple Pulmonary Resp Exam: No Distress, Rhonchi, Decreased Bases, Diminished Breath Sounds Cardiology CV Exam: Regular, Normal Sinus Rhythm Gastrointestinal/Abdomen GI Exam: Soft, Non-Tender, Bowel Sounds Present Extremeties Extremities Exam: Moderate Edema Neurologic Neuro Exam: Alert, Awake Psychiatric Psych Exam: Appropriate Responses Assessment/Plan Assessment Summary: WILLIE/Acute Renal Failure, CHF, CKD Stage IV Problem List: (1) NSTEMI (non-ST elevated myocardial infarction) ICD Codes: I21.4 - Non-ST elevation (NSTEMI) myocardial infarction Status: Resolved (2) Diabetes mellitus ICD Codes: E11.9 - Diabetes mellitus Status: Chronic (3) Asthma ICD Codes: J45.909 - Asthma Status: Chronic (4) Shortness of breath ICD Codes: R06.02 - Shortness of breath Status: Acute (5) Leg edema ICD Codes: R60.0 - Leg edema Status: Acute (6) Hypertension ICD Codes: I10 - Hypertension Status: Chronic Plan Patient has been non oliguric, Creatinine is still elevated. K is normal, Follow urine out put and BMP. Has proteinuria, serology negative. Added Phoslo as Po4 is elevated and calcitriol as Calcium is low. BP is better. Follow urine out put and watch for any renal recovery. Got the PermCath , has poor flow from Vascath. The Kidney Biopsy showing Diabetic and Hypertensive renal disease. HD to continue as per schedule. Will need out patient HD arrangement also. Consult case management. Post AVF. Problem Qualifiers (1) Diabetes mellitus: (2) Hypertension: Qualified Codes: I10 - Essential (primary) hypertension Zoey Carbone MD Jan 15, 2017 19:59
[2017-01-15 20:00] VITALS: BP 156/67; PULSE 73; RESP 16; TEMP 98.4; O2SAT 93
[2017-01-15] MEDS: TAMSULOSIN HCL 0.4 MG CAP PO SCH (21:35)
[2017-01-15] MEDS: INSULIN DETEMIR 100 UNITS/ML VIAL SQ SCH (21:36)
[2017-01-16] VITALS (7 sets, daily range): BP systolic 110–144; BP diastolic 58–71; PULSE 64–93; RESP 16–20; TEMP 97–99.1; O2SAT 94–100
[2017-01-16] MEDS: CHLORHEXIDINE GLUCONATE 2 % 1 PACK (2 CLOTHS) TOP SCH (03:31)
[2017-01-16] MEDS: hydrALAZINE HCL 50 MG TAB PO SCH ×3 (06:03→22:00)
[2017-01-16] MEDS: INSULIN NovoLIN REGULAR SUPPLEMENTAL SCALE SQ SCH ×3 (06:05→16:56)
[2017-01-16] MEDS: CHLORHEXIDINE 0.12% (ORAL KIT) 15 ML CUP MT SCH ×2 (08:00→20:00)
[2017-01-16] MEDS: INSULIN ASPART 1,000 UNITS/10 ML VIAL SQ SCH ×3 (08:00→16:53)
[2017-01-16] MEDS: cloNIDine HCL 0.3 MG TAB PO SCH ×3 (08:00→23:43)
[2017-01-16] MEDS: CALCIUM ACETATE 667 MG CAP PO SCH ×3 (09:00→16:44)
[2017-01-16] MEDS: SODIUM CHLORIDE 0.9% FLUSH 10 ML FLUSH IVF SCH (09:00)
[2017-01-16] MEDS: ARTIFICIAL TEARS OPTH SOLN 15 ML BTL EACH EYE SCH ×3 (09:00→16:48)
[2017-01-16] MEDS: RESP: ALBUTEROL 2.5 MG/3 ML NEB (PRN) NEB ×3 (09:37→19:21)
--- NOTE | 2017-01-16 10:34 | HHI.NPPN ---
Subjective History of Present Illness 66-year-old male with past medical history of hypertension, diabetes mellitus, history of cerebrovascular accident with left-sided weakness, hyperlipidemia, bronchial asthma, chronic kidney disease who was admitted because of shortness of breath and chest pain. I was called to see the patient because of elevated BUN and creatinine. The patient was diagnosed here with non-ST elevation [place]. The patient has history of chronic kidney disease. Additional Remarks Patient is alert, not in distress, seen during HD, has mild SOB. Objective Data Data Vital Signs Date Time Temp Pulse Resp B/P (MAP) Pulse Ox O2 Delivery O2 Flow Rate FiO2 01/16/17 08:00 98.2 66 20 144/71 (95) 96 01/16/17 04:00 Room Air 01/16/17 04:00 98.0 64 16 110/58 (75) 100 01/16/17 00:00 98.3 65 20 119/65 (83) 94 01/16/17 00:00 Room Air 01/15/17 20:00 98.4 73 16 156/67 (96) 93 01/15/17 20:00 Room Air 01/15/17 16:00 98.3 66 20 129/71 (90) 94 01/15/17 12:00 98.5 68 20 113/63 (80) 94 -: 01/13/17 1005 01/13/17 1005 Physical Exam General Appearance: No Acute Distress, Comfortable Eyes Eye Exam: Pupils Equal Throat Throat Exam: Oral Mucosa [place] & Moist Neck Neck Exam: Neck Supple Pulmonary Resp Exam: No Distress, Rhonchi, Decreased Bases, Diminished Breath Sounds Cardiology CV Exam: Regular, Normal Sinus Rhythm Gastrointestinal/Abdomen GI Exam: Soft, Non-Tender, Bowel Sounds Present Extremeties Extremities Exam: Moderate Edema Neurologic Neuro Exam: Alert, Awake Psychiatric Psych Exam: Appropriate Responses Assessment/Plan Assessment Summary: WILLIE/Acute Renal Failure, CHF, CKD Stage IV Problem List: (1) NSTEMI (non-ST elevated myocardial infarction) ICD Codes: I21.4 - Non-ST elevation (NSTEMI) myocardial infarction Status: Resolved (2) Diabetes mellitus ICD Codes: E11.9 - Diabetes mellitus Status: Chronic (3) Asthma ICD Codes: J45.909 - Asthma Status: Chronic (4) Shortness of breath ICD Codes: R06.02 - Shortness of breath Status: Acute (5) Leg edema ICD Codes: R60.0 - Leg edema Status: Acute (6) Hypertension ICD Codes: I10 - Hypertension Status: Chronic Plan Patient has been non oliguric, Creatinine is still elevated. K is normal, Follow urine out put and BMP. Has proteinuria, serology negative. Added Phoslo as Po4 is elevated and calcitriol as Calcium is low. BP is better. Follow urine out put and watch for any renal recovery. Got the PermCath , has poor flow from Vascath. The Kidney Biopsy showing Diabetic and Hypertensive renal disease. HD to continue as per schedule. Will need out patient HD arrangement also. Case management notes seen. HD to continue 3 times a week. Problem Qualifiers (1) Diabetes mellitus: Qualified Codes: E11.22 - Type 2 diabetes mellitus with diabetic chronic kidney disease; N18.4 - Chronic kidney disease, stage 4 (severe); Z79.4 - salvage determiner (current) use of insulin (2) Hypertension: Qualified Codes: I10 - Essential (primary) hypertension Zoey Carbone MD Jan 16, 2017 10:34
[2017-01-16] MEDS: GENTAMICIN SULFATE (DIALYSIS USE ONLY) 20 MG/2 ML VIAL IV PRN (12:09)
[2017-01-16] MEDS: HEPARIN SODIUM - IV 10,000 UNITS/10 ML VIAL PRN (12:09)
[2017-01-16] MEDS: EPOETIN ALFA 10,000 UNITS/ML VIAL IV PRN (12:09)
[2017-01-16] MEDS: CARVEDILOL 6.25 MG TAB PO SCH ×2 (13:08→20:42)
[2017-01-16] MEDS: ASPIRIN 81 MG CHEW TAB CHEW SCH (13:08)
[2017-01-16] MEDS: guaiFENesin E.R. 600 MG TAB PO SCH ×2 (13:10→20:42)
[2017-01-16] MEDS: HEPARIN SODIUM - SQ 10,000 UNITS/ML VIAL SQ SCH ×2 (13:12→20:42)
[2017-01-16] MEDS: BUDESONIDE-FORMOTEROL 160/4.5 MCG INHALER INH SCH ×2 (13:20→20:45)
--- NOTE | 2017-01-16 13:20 | HHI.PR ---
Subjective Remarks Follow-up for ESRD. Patient seen and examined, Patient reported poor sleep, having slept only two hours. Throat pain denied Denies any recent fever, chills, cough, ab pain, n/v/d. Afebrile. Per RN (Cordelia) no acute issues noted over night or since start of shift. Per RN, pt is to be transported to dialysis in the immediate future. Objective Vitals Vital Signs Date Time Temp Pulse Resp B/P (MAP) Pulse Ox O2 Delivery O2 Flow Rate FiO2 01/16/17 08:00 98.2 66 20 144/71 (95) 96 01/16/17 07:32 Room Air 01/16/17 04:00 Room Air 01/16/17 04:00 98.0 64 16 110/58 (75) 100 01/16/17 00:00 98.3 65 20 119/65 (83) 94 01/16/17 00:00 Room Air 01/15/17 20:00 98.4 73 16 156/67 (96) 93 01/15/17 20:00 Room Air 01/15/17 16:00 98.3 66 20 129/71 (90) 94 I/O 01/15/17 01/15/17 01/15/17 01/16/17 01/16/17 01/16/17 07:00 15:00 23:00 07:00 15:00 23:00 Intake Total 360 ml 240 ml Output Total 2500 ml Balance 360 ml 240 ml -2500 ml Intake Oral 360 ml 240 ml Hemodialysis 2500 ml # Voids 2 1 1 # Bowel Movements 0 0 Result Diagram: 01/13/17 1005 01/13/17 1005 Imaging Last Impressions Chest X-Ray 01/12/17 0000 Signed Impressions: Service Date/Time: Thursday, January 12, 2017 11:15 - CONCLUSION: Dialysis catheter in good position. The lungs are clear. Marek Burnett MD FACR Carotid Artery Ultrasound 01/10/17 0000 Signed Impressions: Service Date/Time: Tuesday, January 10, 2017 12:25 - CONCLUSION: Negative examination for a hemodynamically significant carotid stenosis. Marek Burnett MD FACR Upper Extremity Ultrasound 01/05/17 0000 Signed Impressions: Service Date/Time: Thursday, January 05, 2017 18:56 - CONCLUSION: Normal examination. Ji Martinez MD Renal Biopsy CT 01/03/17 0000 Signed Impressions: Service Date/Time: Tuesday, January 03, 2017 13:28 - CONCLUSION: Uncomplicated CT guided biopsy. Ji Cedillo MD Central Venous Line 01/03/17 0000 Signed Impressions: Service Date/Time: Tuesday, January 03, 2017 00:00 - CONCLUSION: Uncomplicated catheter removal. Filiberto Rodarte MD Catheter Placement X-Ray 01/03/17 Signed Impressions: Service Date/Time: Tuesday, January 03, 2017 14:27 - CONCLUSION: Uncomplicated PermaCath placement as above. Filiberto Rodarte MD Chest CT 12/08/16 0000 Signed Impressions: Service Date/Time: Thursday, December 08, 2016 14:02 - CONCLUSION: 1. Bilateral lower lobe consolidating airspace disease. 2. Small to moderate bilateral pleural effusions; larger on the left. 3. Cardiomegaly. 4. Endotracheal and nasogastric tubes in good position. Tutu Christianson MD Renal Ultrasound 12/07/16 0000 Signed Impressions: Service Date/Time: November 07:54 - CONCLUSION: Unremarkable and stable bilateral renal ultrasound. No evidence of hydronephrosis. Baron Medrano MD Objective Remarks GENERAL: Pt encountered laying a bed, chronically ill appearing. NAD. Pt had breakfast tray in front of him, scrambled eggs eaten other food items remained. SKIN: Warm and dry. HEAD: Normocephalic. EYES: No scleral icterus. No injection or drainage. NECK: Supple, trachea midline. No lymphadenopathy. CARDIOVASCULAR: Regular rate and rhythm without murmurs, gallops, or rubs. RESPIRATORY: Breath sounds equal bilaterally. No accessory muscle use. GASTROINTESTINAL: Abdomen soft, non-tender, nondistended. MUSCULOSKELETAL: No cyanosis, or edema. PSYCHIATRIC: affect blunted. Pt pleasant and cooperative. Procedures Echo 12/07/2016 Mildly dilated left ventricle. Wall thickness is normal. The left ventricular systolic function is normal with an estimated ejection fraction is 45-50%. There is distinct regional wall motion abnormalities with akinetic apex and possibly clot at the apex. Consider repeating study with contrast/Definity to better asses apex The right ventriclar size is upper limits of normal. The left atrial size is moderately dilated. The right atrial size is moderately dilated. [id number] mitral valve regurgitation. There is mild tricuspid valve regurgitation. There is estimated mild pulmonary hypertension present (range 40-50 mmHg). The pulmonary valve is not well visualized. The inferior vena cava is dilated. There is less than 50% respiratory change in dimension of the inferior vena cava (abnormal). Medications and IVs Current Medications Medications (Trade) Dose Ordered Sig/Abby Route Start Time Stop Time Status Last Admin (D50w (Vial) Inj) 25 ml UNSCH PRN IV PUSH 12/07/16 00:45 (NovoLIN R SUPPLEMENTAL SCALE) 1 Q6HR SQ 12/07/16 06:00 01/16/17 06:05 (Zofran Inj) 4 mg Q6H PRN IV 12/07/16 00:45 (NS Flush) DAILY IVF 12/07/16 15:30 01/14/17 09:00 (NS Flush) UNSCH PRN IVF 12/07/16 15:30 (Peridex 0.12% Liq) 15 ml BID@08,20 MT 12/07/16 20:00 01/15/17 08:00 (Albuterol Neb) 2.5 mg Q2HR NEB PRN NEB 12/07/16 15:30 01/16/17 09:37 (NS Flush) 2 ml UNSCH PRN IV FLUSH 12/07/16 15:30 12/12/16 11:32 (NS Flush) 2 ml BID IV FLUSH 12/07/16 21:00 01/15/17 21:35 (Tylenol) 650 mg Q6H PRN PO 12/07/16 15:30 12/31/16 09:47 (Tears Naturale Opth Soln) 1 drop TID EACH EYE 12/07/16 18:00 01/15/17 17:50 Miscellaneous Information 1 Q361D XX 12/07/16 15:30 (Chlorhexidine 2% Cloth) 3 pack Taper DAILY@04 TOP 12/08/16 04:00 12/04/17 03:59 01/01/17 03:31 (Chlorhexidine 2% Cloth) 3 pack UNSCH PRN TOP 12/07/16 15:30 (Milk Of Magnesia Liq) 30 ml Q12H PRN PO 12/07/16 15:30 12/22/16 23:15 (Senokot) 17.2 mg Q12H PRN PO 12/07/16 15:30 01/08/17 22:36 (Aspirin Chew) 81 mg DAILY CHEW 12/08/16 12:00 01/15/17 09:59 (Trandate Inj) 20 mg Q2H PRN IV 12/10/16 00:15 12/14/16 08:05 (Morphine Inj) 2 mg Q3H PRN IV PUSH 12/10/16 09:15 01/13/17 05:57 (Coreg) 6.25 mg Q12HR PO 12/10/16 10:00 01/15/17 21:35 (Phoslo) 1,334 mg TID PO 12/10/16 13:00 01/15/17 17:44 (Rocaltrol) 0.5 mcg DAILY PO 12/10/16 12:45 01/15/17 10:13 (Symbicort 160-4.5 Inh) 1 puff Q12HR INH 12/11/16 12:00 01/15/17 21:34 (Spiriva Inh) 18 mcg DAILY INH 12/11/16 12:00 01/15/17 10:03 (Norvasc) 10 mg DAILY PO 12/11/16 15:15 01/15/17 09:59 (Apresoline Inj) 20 mg Q4H PRN IV PUSH 12/11/16 15:15 12/18/16 04:26 (Catapres) 0.3 mg Q8H PO 12/12/16 08:00 01/15/17 23:38 Sodium Chloride 1,000 ml @ 0 mls/hr Q0M PRN IV 12/12/16 12:11 01/09/17 11:31 (Heparin Inj) 8,000 units UNSCH PRN IVF 12/12/16 12:15 01/06/17 10:58 Sodium Chloride 1,000 ml @ 200 mls/hr Q5H PRN IV 12/12/16 12:11 Sodium Chloride 1,000 ml @ 0 mls/hr Q0M PRN IV 12/12/16 12:11 12/12/16 17:04 (Mannitol Inj) 12.5 gm UNSCH PRN IV 12/12/16 12:15 (Albumin 25% Inj) 25 gm UNSCH PRN IV 12/12/16 12:15 (NS Flush) 5 ml UNSCH PRN IV FLUSH 12/12/16 12:15 12/26/16 10:34 (Heparin Inj) UNSCH PRN .XX 12/12/16 12:15 01/16/17 12:09 (Gentamicin (Dialysis) Inj) 20 mg UNSCH PRN IV 12/12/16 12:15 01/16/17 12:09 (Zofran Inj) 4 mg UNSCH PRN IV 12/12/16 12:15 (Tylenol) 650 mg UNSCH PRN PO 12/12/16 12:15 01/08/17 15:15 (Benadryl) 25 mg UNSCH PRN PO 12/12/16 12:15 (Nitrostat Sl) 0.4 mg UNSCH PRN SL 12/12/16 12:15 (Catapres) 0.1 mg UNSCH PRN PO 12/12/16 12:15 12/24/16 18:49 (Epogen Inj) 10,000 units UNSCH PRN IV 12/12/16 12:15 01/16/17 12:09 (Gelfoam 12 Mm/7 Mm Top) 1 foam UNSCH PRN TOP 12/12/16 12:15 (Apresoline) 50 mg Q8HR PO 12/26/16 14:00 01/16/17 06:03 (NS Flush) UNSCH PRN IVF 01/03/17 16:15 (Heparin Inj) UNSCH PRN IV FLUSH 01/03/17 16:15 (Heparin Inj) 5,000 units Q12HR SQ 01/07/17 09:00 01/15/17 21:35 (Levemir Inj) 35 units HS SQ 01/10/17 21:00 01/15/17 21:36 (Mucinex Er) 600 mg BID PO 01/12/17 10:30 01/15/17 21:35 (Cepacol Extra Ha (Sugar Free)) 1 lozenge Q2HR PRN BUCCAL 01/13/17 13:00 (Flomax) 0.4 mg HS PO 01/14/17 21:00 01/15/17 21:35 (NovoLOG INJ) 8 units TIDAC SQ 01/15/17 12:30 01/15/17 17:46 Urinary Catheter: No A/P Problem List: (1) Respiratory failure ICD Code: J96.90 - Respiratory failure, unspecified, unspecified whether with hypoxia or hypercapnia Status: Acute (2) Sepsis ICD Code: A41.9 - Sepsis, unspecified organism Status: Acute (3) Pneumonia ICD Code: J18.9 - Pneumonia, unspecified organism Status: Acute (4) left atrial thrombus Status: Acute (5) NSTEMI (non-ST elevated myocardial infarction) ICD Code: I21.4 - Non-ST elevation (NSTEMI) myocardial infarction Status: Resolved (6) ARF (acute renal failure) ICD Code: N17.9 - ARF (acute renal failure) Status: Acute (7) Diabetes mellitus ICD Code: E11.9 - Diabetes mellitus Status: Chronic (8) Morbid obesity ICD Code: E66.01 - Morbid (severe) obesity due to excess calories Status: Acute (9) Severe chronic obstructive pulmonary disease ICD Code: J44.9 - Chronic obstructive pulmonary disease, unspecified Status: Acute (10) CKD (chronic kidney disease) stage 4, GFR 15-29 ml/min ICD Code: N18.4 - Chronic kidney disease, stage 4 (severe) Status: Acute Assessment and Plan Mr. Mehta is a 66-year-old male with medical history significant for hypertension and diabetes and CVA who presented to the hospital with a chief complaint of shortness of breath and chest pain. The patient was diagnosed with NSTEMI. Echo was performed which was concerning for thrombus, but study was limited and a repeat was suggested. He has history of chronic kidney disease but worsening of his creatinine was noted. He was seen and evaluated by nephrology who started the patient on hemodialysis. ESRD: Pt undergoing dialysis later today, Diabetes: Increased Levemir to 37 units SQ HS. CKD stage IV with GFR 15-29. Acute renal failure progressing to ESRD - nephrology on board, started on hemodialysis. - PermaCath placed. Vascular surgery unable to find adequate vein for AVF. Will await nephrology further recommendations. - Kidney biopsy on 01/03/2017 --> diffuse and nodular diabetic glomerulosclerosis, segmental and global glomerular sclerosis, interstitial fibrosis and tubular atrophy severe. S/P acute respiratory failure secondary to bilateral lower lobe pneumonias/ community acquired - Urine antigens, sputum culture, blood cultures were all negative. S/p abx treatment course with azithromycin and Rocephin - Improved - Chest x-ray 01/12 clear and labs unremarkable for acute process - Continue guaifenesin and Acapella for cough - O2 if needed to keep sats >92%. COPD - Symbicort and Spiriva - Continue albuterol neb. NSTEMI Hypertension - Echo performed December 07 showed distinct regional wall abnormalities with a possible clot in the apex. - echo with Definity contrast did not appear to show any clots in LV. - Cardiology was consulted, stable from a cardiac standpoint and recommended continued aggressive risk factor modification - ASA 81 mg daily. Coreg 6.25 mg BID. Norvasc 10 mg daily. Clonidine to 0.3 mg po TID and hydralazine 50 mg by mouth daily 8 hour Diabetes mellitus - Continue Levemir 35 units QHS and sliding scale insulin. - pre-meal insulin 8 units TIDAC - Monitor Accu-Cheks and adjust regimen as indicated BPH - continue Tamsulosin. Sore throat: Likely secondary to recent intubation. Continue Cepacol lozenge as needed. Deconditioning: PT recommends SNF, generalized weakness likely due to prolonged hospitalization and multiple medical conditions as above. - Continue PT Sunday through Sunday while admitted Heparin SQ for DVT prophylaxis. Case discussed with Pt, RN, and Dr. Man. Discharge Planning Discharge plan: Pending outpatient dialysis arrangements. Problem Qualifiers (1) Respiratory failure: Qualified Codes: J96.00 - Acute respiratory failure, unspecified whether with hypoxia or hypercapnia (2) Sepsis: (3) Pneumonia: (4) ARF (acute renal failure): (5) Diabetes mellitus: Qualified Codes: E11.22 - Type 2 diabetes mellitus with diabetic chronic kidney disease; N18.4 - Chronic kidney disease, stage 4 (severe); Z79.4 - halfway (current) use of insulin Montana Robles Jr. Jan 16, 2017 13:20
[2017-01-16] MEDS: SODIUM CHLORIDE 0.9% FLUSH 10 ML FLUSH IV FLUSH SCH ×2 (13:21→20:44)
[2017-01-16] MEDS: TIOTROPIUM BROMIDE 18 MCG INH INH SCH (13:24)
[2017-01-16] MEDS: CALCITRIOL 0.25 MCG CAP PO SCH (13:36)
[2017-01-16] MEDS: TAMSULOSIN HCL 0.4 MG CAP PO SCH (20:42)
[2017-01-16] MEDS: INSULIN DETEMIR 100 UNITS/ML VIAL SQ SCH (20:43)
[2017-01-17] VITALS (8 sets, daily range): BP systolic 104–124; BP diastolic 59–85; PULSE 63–72; RESP 13–18; TEMP 97.5–98.9; O2SAT 97–100
[2017-01-17] MEDS: CHLORHEXIDINE GLUCONATE 2 % 1 PACK (2 CLOTHS) TOP SCH (04:00)
[2017-01-17] MEDS: hydrALAZINE HCL 50 MG TAB PO SCH ×3 (06:00→23:32)
[2017-01-17] MEDS: INSULIN NovoLIN REGULAR SUPPLEMENTAL SCALE SQ SCH ×5 (06:00→23:37)
[2017-01-17] MEDS: CHLORHEXIDINE 0.12% (ORAL KIT) 15 ML CUP MT SCH ×2 (08:00→20:00)
[2017-01-17] MEDS: SODIUM CHLORIDE 0.9% FLUSH 10 ML FLUSH IVF SCH (09:00)
[2017-01-17] MEDS: HEPARIN SODIUM - SQ 10,000 UNITS/ML VIAL SQ SCH ×2 (09:03→21:00)
[2017-01-17] MEDS: cloNIDine HCL 0.3 MG TAB PO SCH ×3 (09:04→23:32)
[2017-01-17] MEDS: CALCIUM ACETATE 667 MG CAP PO SCH ×3 (09:04→17:19)
[2017-01-17] MEDS: CALCITRIOL 0.25 MCG CAP PO SCH (09:04)
[2017-01-17] MEDS: guaiFENesin E.R. 600 MG TAB PO SCH ×2 (09:04→23:32)
[2017-01-17] MEDS: CARVEDILOL 6.25 MG TAB PO SCH ×2 (09:05→23:32)
[2017-01-17] MEDS: ASPIRIN 81 MG CHEW TAB CHEW SCH (09:05)
[2017-01-17] MEDS: SODIUM CHLORIDE 0.9% FLUSH 10 ML FLUSH IV FLUSH SCH ×2 (09:05→21:12)
[2017-01-17] MEDS: TIOTROPIUM BROMIDE 18 MCG INH INH SCH (09:06)
[2017-01-17] MEDS: ARTIFICIAL TEARS OPTH SOLN 15 ML BTL EACH EYE SCH ×3 (09:08→17:23)
[2017-01-17] MEDS: BUDESONIDE-FORMOTEROL 160/4.5 MCG INHALER INH SCH ×2 (09:08→21:00)
[2017-01-17] MEDS: INSULIN ASPART 1,000 UNITS/10 ML VIAL SQ SCH ×3 (09:15→17:20)
[2017-01-17] MEDS: RESP: ALBUTEROL 2.5 MG/3 ML NEB (PRN) NEB (09:43)
--- NOTE | 2017-01-17 16:04 | HHI.PR ---
Subjective Remarks Follow-up for ESRD. Patient seen and examined, Patient improved sleep, having slept only 3-4 hours last night. Throat pain denied Denies any recent fever, chills, cough, ab pain, n/v/d. Afebrile. Per RN (Cordelia) pt has reported some shortness of breath which improved with prn breathing treatments. Right hip pain was reported but denied by pt. Objective Vitals Vital Signs Date Time Temp Pulse Resp B/P (MAP) Pulse Ox O2 Delivery O2 Flow Rate FiO2 01/17/17 11:30 98.4 01/17/17 11:30 98.4 70 13 112/67 (82) 97 01/17/17 09:10 Nasal Cannula 2.00 01/17/17 09:04 98 Nasal Cannula 2.00 01/17/17 08:00 98.5 69 16 124/85 (98) 99 01/17/17 05:00 98.9 72 18 106/61 (76) 99 01/17/17 04:00 Nasal Cannula 2.00 01/17/17 00:00 Nasal Cannula 2.00 01/16/17 23:18 98.9 70 18 117/64 (81) 99 01/16/17 20:15 99.1 78 18 113/70 (84) 98 01/16/17 20:00 Nasal Cannula 2.00 01/16/17 17:43 Nasal Cannula 2.00 01/16/17 16:05 98 Nasal Cannula 2.00 01/16/17 16:00 97.0 93 20 125/70 (88) 97 I/O 01/16/17 01/16/17 01/16/17 01/17/17 01/17/17 01/17/17 07:00 15:00 23:00 07:00 15:00 23:00 Intake Total 240 ml 240 ml 240 ml Output Total 2500 ml Balance 240 ml -2260 ml 240 ml Intake Oral 240 ml 240 ml 240 ml Hemodialysis 2500 ml # Voids 1 2 1 # Bowel Movements 0 0 0 Result Diagram: 01/13/17 1005 01/13/17 1005 Imaging Last Impressions Chest X-Ray 01/12/17 0000 Signed Impressions: Service Date/Time: Thursday, January 12, 2017 11:15 - CONCLUSION: Dialysis catheter in good position. The lungs are clear. Marek Burnett MD FACR Carotid Artery Ultrasound 01/10/17 0000 Signed Impressions: Service Date/Time: Tuesday, January 10, 2017 12:25 - CONCLUSION: Negative examination for a hemodynamically significant carotid stenosis. Marek Burnett MD FACR Upper Extremity Ultrasound 01/05/17 Signed Impressions: Service Date/Time: Thursday, January 05, 2017 18:56 - CONCLUSION: Normal examination. Ji Martinez MD Renal Biopsy CT 01/03/17 Signed Impressions: Service Date/Time: Tuesday, January 03, 2017 13:28 - CONCLUSION: Uncomplicated CT guided biopsy. Ji Cedillo MD Central Venous Line 01/03/17 Signed Impressions: Service Date/Time: Tuesday, January 03, 2017 00:00 - CONCLUSION: Uncomplicated catheter removal. Filiberto Rodarte MD Catheter Placement X-Ray 01/03/17 Signed Impressions: Service Date/Time: Tuesday, January 03, 2017 14:27 - CONCLUSION: Uncomplicated PermaCath placement as above. Filiberto Rodarte MD Chest CT 12/08/16 0000 Signed Impressions: Service Date/Time: Thursday, December 08, 2016 14:02 - CONCLUSION: 1. Bilateral lower lobe consolidating airspace disease. 2. Small to moderate bilateral pleural effusions; larger on the left. 3. Cardiomegaly. 4. Endotracheal and nasogastric tubes in good position. Tutu Christianson MD Renal Ultrasound 12/07/16 0000 Signed Impressions: Service Date/Time: November 07:54 - CONCLUSION: Unremarkable and stable bilateral renal ultrasound. No evidence of hydronephrosis. Baron Medrano MD Objective Remarks GENERAL: Pt encountered laying a bed, chronically ill appearing. NAD. Pt had breakfast tray across from his bed with scrambled eggs eaten and other food items remained. SKIN: Warm and dry. HEAD: Normocephalic. EYES: No scleral icterus. No injection or drainage. NECK: Supple, trachea midline. No lymphadenopathy. CARDIOVASCULAR: Regular rate and rhythm without murmurs, gallops, or rubs. RESPIRATORY: Breath sounds equal bilaterally. No accessory muscle use. GASTROINTESTINAL: Abdomen soft, non-tender, nondistended. MUSCULOSKELETAL: No cyanosis, or edema. PSYCHIATRIC: affect blunted. Pt pleasant and cooperative. Procedures Echo 12/07/2016 Mildly dilated left ventricle. Wall thickness is normal. The left ventricular systolic function is normal with an estimated ejection fraction is 45-50%. There is distinct regional wall motion abnormalities with akinetic apex and possibly clot at the apex. Consider repeating study with contrast/Definity to better asses apex The right ventriclar size is upper limits of normal. The left atrial size is moderately dilated. The right atrial size is moderately dilated. [id number] mitral valve regurgitation. There is mild tricuspid valve regurgitation. There is estimated mild pulmonary hypertension present (range 40-50 mmHg). The pulmonary valve is not well visualized. The inferior vena cava is dilated. There is less than 50% respiratory change in dimension of the inferior vena cava (abnormal). Medications and IVs Current Medications Medications (Trade) Dose Ordered Sig/Abby Route Start Time Stop Time Status Last Admin (D50w (Vial) Inj) 25 ml UNSCH PRN IV PUSH 12/07/16 00:45 (NovoLIN R SUPPLEMENTAL SCALE) 1 Q6HR SQ 12/07/16 06:00 01/17/17 12:23 (Zofran Inj) 4 mg Q6H PRN IV 12/07/16 00:45 (NS Flush) DAILY IVF 12/07/16 15:30 01/14/17 09:00 (NS Flush) UNSCH PRN IVF 12/07/16 15:30 (Peridex 0.12% Liq) 15 ml BID@08,20 MT 12/07/16 20:00 01/15/17 08:00 (Albuterol Neb) 2.5 mg Q2HR NEB PRN NEB 12/07/16 15:30 01/17/17 09:43 (NS Flush) 2 ml UNSCH PRN IV FLUSH 12/07/16 15:30 12/12/16 11:32 (NS Flush) 2 ml BID IV FLUSH 12/07/16 21:00 01/17/17 09:05 (Tylenol) 650 mg Q6H PRN PO 12/07/16 15:30 12/31/16 09:47 (Tears Naturale Opth Soln) 1 drop TID EACH EYE 12/07/16 18:00 01/17/17 09:08 Miscellaneous Information 1 Q361D XX 12/07/16 15:30 (Chlorhexidine 2% Cloth) 3 pack Taper DAILY@04 TOP 12/08/16 04:00 12/04/17 03:59 01/01/17 03:31 (Chlorhexidine 2% Cloth) 3 pack UNSCH PRN TOP 12/07/16 15:30 (Milk Of Magnalvino Liq) 30 ml Q12H PRN PO 12/07/16 15:30 12/22/16 23:15 (Senokot) 17.2 mg Q12H PRN PO 12/07/16 15:30 01/08/17 22:36 (Aspirin Chew) 81 mg DAILY CHEW 12/08/16 12:00 01/17/17 09:05 (Trandate Inj) 20 mg Q2H PRN IV 12/10/16 00:15 12/14/16 08:05 (Morphine Inj) 2 mg Q3H PRN IV PUSH 12/10/16 09:15 01/13/17 05:57 (Coreg) 6.25 mg Q12HR PO 12/10/16 10:00 01/17/17 09:05 (Phoslo) 1,334 mg TID PO 12/10/16 13:00 01/17/17 12:24 (Rocaltrol) 0.5 mcg DAILY PO 12/10/16 12:45 01/17/17 09:04 (Symbicort 160-4.5 Inh) 1 puff Q12HR INH 12/11/16 12:00 01/17/17 09:08 (Spiriva Inh) 18 mcg DAILY INH 12/11/16 12:00 01/17/17 09:06 (Norvasc) 10 mg DAILY PO 12/11/16 15:15 01/17/17 09:05 (Apresoline Inj) 20 mg Q4H PRN IV PUSH 12/11/16 15:15 12/18/16 04:26 (Catapres) 0.3 mg Q8H PO 12/12/16 08:00 01/17/17 14:58 Sodium Chloride 1,000 ml @ 0 mls/hr Q0M PRN IV 12/12/16 12:11 01/09/17 11:31 (Heparin Inj) 8,000 units UNSCH PRN IVF 12/12/16 12:15 01/06/17 10:58 Sodium Chloride 1,000 ml @ 200 mls/hr Q5H PRN IV 12/12/16 12:11 Sodium Chloride 1,000 ml @ 0 mls/hr Q0M PRN IV 12/12/16 12:11 12/12/16 17:04 (Mannitol Inj) 12.5 gm UNSCH PRN IV 12/12/16 12:15 (Albumin 25% Inj) 25 gm UNSCH PRN IV 12/12/16 12:15 (NS Flush) 5 ml UNSCH PRN IV FLUSH 12/12/16 12:15 12/26/16 10:34 (Heparin Inj) UNSCH PRN .XX 12/12/16 12:15 01/16/17 12:09 (Gentamicin (Dialysis) Inj) 20 mg UNSCH PRN IV 12/12/16 12:15 01/16/17 12:09 (Zofran Inj) 4 mg UNSCH PRN IV 12/12/16 12:15 (Tylenol) 650 mg UNSCH PRN PO 12/12/16 12:15 01/08/17 15:15 (Benadryl) 25 mg UNSCH PRN PO 12/12/16 12:15 (Nitrostat Sl) 0.4 mg UNSCH PRN SL 12/12/16 12:15 (Catapres) 0.1 mg UNSCH PRN PO 12/12/16 12:15 12/24/16 18:49 (Epogen Inj) 10,000 units UNSCH PRN IV 12/12/16 12:15 01/16/17 12:09 (Gelfoam 12 Mm/7 Mm Top) 1 foam UNSCH PRN TOP 12/12/16 12:15 (Apresoline) 50 mg Q8HR PO 12/26/16 14:00 01/17/17 14:58 (NS Flush) UNSCH PRN IVF 01/03/17 16:15 (Heparin Inj) UNSCH PRN IV FLUSH 01/03/17 16:15 (Heparin Inj) 5,000 units Q12HR SQ 01/07/17 09:00 01/17/17 09:03 (Mucinex Er) 600 mg BID PO 01/12/17 10:30 01/17/17 09:04 (Cepacol Extra Ha (Sugar Free)) 1 lozenge Q2HR PRN BUCCAL 01/13/17 13:00 (Flomax) 0.4 mg HS PO 01/14/17 21:00 01/16/17 20:42 (NovoLOG INJ) 8 units TIDAC SQ 01/15/17 12:30 01/17/17 12:20 (Levemir Inj) 37 units HS SQ 01/16/17 21:00 01/16/17 20:43 Urinary Catheter: No A/P Problem List: (1) Respiratory failure ICD Code: J96.90 - Respiratory failure, unspecified, unspecified whether with hypoxia or hypercapnia Status: Acute (2) Sepsis ICD Code: A41.9 - Sepsis, unspecified organism Status: Acute (3) Pneumonia ICD Code: J18.9 - Pneumonia, unspecified organism Status: Acute (4) left atrial thrombus Status: Acute (5) NSTEMI (non-ST elevated myocardial infarction) ICD Code: I21.4 - Non-ST elevation (NSTEMI) myocardial infarction Status: Resolved (6) ARF (acute renal failure) ICD Code: N17.9 - ARF (acute renal failure) Status: Acute (7) Diabetes mellitus ICD Code: E11.9 - Diabetes mellitus Status: Chronic (8) Morbid obesity ICD Code: E66.01 - Morbid (severe) obesity due to excess calories Status: Acute (9) Severe chronic obstructive pulmonary disease ICD Code: J44.9 - Chronic obstructive pulmonary disease, unspecified Status: Acute (10) CKD (chronic kidney disease) stage 4, GFR 15-29 ml/min ICD Code: N18.4 - Chronic kidney disease, stage 4 (severe) Status: Acute Assessment and Plan Mr. Mehta is a 66-year-old male with medical history significant for hypertension and diabetes and CVA who presented to the hospital with a chief complaint of shortness of breath and chest pain. The patient was diagnosed with NSTEMI. Echo was performed which was concerning for thrombus, but study was limited and a repeat was suggested. He has history of chronic kidney disease but worsening of his creatinine was noted. He was seen and evaluated by nephrology who started the patient on hemodialysis. ESRD: Pt to undergo dialysis 01/18/17, Diabetes: Levemir was to 37 units SQ HS last evening. Blood glucose evidence some improvement. Monitor. Consider increase tomorrow. CKD stage IV with GFR 15-29. Acute renal failure progressing to ESRD - nephrology on board, started on hemodialysis. - PermaCath placed. Vascular surgery unable to find adequate vein for AVF. Will await nephrology further recommendations. - Kidney biopsy on 01/03/2017 --> diffuse and nodular diabetic glomerulosclerosis, segmental and global glomerular sclerosis, interstitial fibrosis and tubular atrophy severe. S/P acute respiratory failure secondary to bilateral lower lobe pneumonias/ community acquired - Urine antigens, sputum culture, blood cultures were all negative. S/p abx treatment course with azithromycin and Rocephin - Improved - Chest x-ray 01/12 clear and labs unremarkable for acute process - Continue guaifenesin and Acapella for cough - O2 if needed to keep sats >92%. COPD - Symbicort and Spiriva - Continue albuterol neb. NSTEMI Hypertension - Echo performed December 07 showed distinct regional wall abnormalities with a possible clot in the apex. - echo with Definity contrast did not appear to show any clots in LV. - Cardiology was consulted, stable from a cardiac standpoint and recommended continued aggressive risk factor modification - ASA 81 mg daily. Coreg 6.25 mg BID. Norvasc 10 mg daily. Clonidine to 0.3 mg po TID and hydralazine 50 mg by mouth daily 8 hour Diabetes mellitus - Continue Levemir 35 units QHS and sliding scale insulin. - pre-meal insulin 8 units TIDAC - Monitor Accu-Cheks and adjust regimen as indicated BPH - continue Tamsulosin. Sore throat: Likely secondary to recent intubation. Continue Cepacol lozenge as needed. Deconditioning: PT recommends SNF, generalized weakness likely due to prolonged hospitalization and multiple medical conditions as above. - Continue PT Sunday through Sunday while admitted Heparin SQ for DVT prophylaxis. Case discussed with Pt, RN, and Dr. Man. Discharge Planning Discharge plan: Pending outpatient dialysis arrangements. Problem Qualifiers (1) Respiratory failure: Qualified Codes: J96.00 - Acute respiratory failure, unspecified whether with hypoxia or hypercapnia (2) Sepsis: (3) Pneumonia: (4) ARF (acute renal failure): (5) Diabetes mellitus: Qualified Codes: E11.22 - Type 2 diabetes mellitus with diabetic chronic kidney disease; N18.4 - Chronic kidney disease, stage 4 (severe); Z79.4 - senior care (current) use of insulin Montana Robles Jr. Jan 17, 2017 16:04
--- NOTE | 2017-01-17 17:16 | HHI.NPPN ---
Subjective History of Present Illness 66-year-old male with past medical history of hypertension, diabetes mellitus, history of cerebrovascular accident with left-sided weakness, hyperlipidemia, bronchial asthma, chronic kidney disease who was admitted because of shortness of breath and chest pain. I was called to see the patient because of elevated BUN and creatinine. The patient was diagnosed here with non-ST elevation [place]. The patient has history of chronic kidney disease. Additional Remarks Patient is alert, not in distress, no SOB. Objective Data Data Vital Signs Date Time Temp Pulse Resp B/P (MAP) Pulse Ox O2 Delivery O2 Flow Rate FiO2 01/17/17 16:00 Nasal Cannula 2.00 01/17/17 16:00 98.3 64 18 108/62 (77) 100 01/17/17 12:00 Nasal Cannula 2.00 01/17/17 11:30 98.4 01/17/17 11:30 98.4 70 13 112/67 (82) 97 01/17/17 09:10 Nasal Cannula 2.00 01/17/17 09:04 98 Nasal Cannula 2.00 01/17/17 08:00 98.5 69 16 124/85 (98) 99 01/17/17 05:00 98.9 72 18 106/61 (76) 99 01/17/17 04:00 Nasal Cannula 2.00 01/17/17 00:00 Nasal Cannula 2.00 01/16/17 23:18 98.9 70 18 117/64 (81) 99 01/16/17 20:15 99.1 78 18 113/70 (84) 98 01/16/17 20:00 Nasal Cannula 2.00 01/16/17 17:43 Nasal Cannula 2.00 -: 01/13/17 1005 01/13/17 1005 Physical Exam General Appearance: No Acute Distress, Comfortable Eyes Eye Exam: Pupils Equal Throat Throat Exam: Oral Mucosa [place] & Moist Neck Neck Exam: Neck Supple Pulmonary Resp Exam: No Distress, Rhonchi, Decreased Bases, Diminished Breath Sounds Cardiology CV Exam: Regular, Normal Sinus Rhythm Gastrointestinal/Abdomen GI Exam: Soft, Non-Tender, Bowel Sounds Present Extremeties Extremities Exam: Moderate Edema Neurologic Neuro Exam: Alert, Awake Psychiatric Psych Exam: Appropriate Responses Assessment/Plan Assessment Summary: WILLIE/Acute Renal Failure, CHF, CKD Stage IV Problem List: (1) NSTEMI (non-ST elevated myocardial infarction) ICD Codes: I21.4 - Non-ST elevation (NSTEMI) myocardial infarction Status: Resolved (2) Diabetes mellitus ICD Codes: E11.9 - Diabetes mellitus Status: Chronic (3) Asthma ICD Codes: J45.909 - Asthma Status: Chronic (4) Shortness of breath ICD Codes: R06.02 - Shortness of breath Status: Acute (5) Leg edema ICD Codes: R60.0 - Leg edema Status: Acute (6) Hypertension ICD Codes: I10 - Hypertension Status: Chronic Plan Patient has been non oliguric, Creatinine is still elevated. K is normal, Follow urine out put and BMP. Has proteinuria, serology negative. Added Phoslo as Po4 is elevated and calcitriol as Calcium is low. BP is better. Follow urine out put and watch for any renal recovery. Got the PermCath , has poor flow from Vascath. The Kidney Biopsy showing Diabetic and Hypertensive renal disease. HD to continue as per schedule. Will need out patient HD arrangement also. Case management notes seen. HD to continue 3 times a week. Possible D/C once out patient HD arrangements done. Problem Qualifiers (1) Diabetes mellitus: Qualified Codes: E11.22 - Type 2 diabetes mellitus with diabetic chronic kidney disease; N18.4 - Chronic kidney disease, stage 4 (severe); Z79.4 - residential (current) use of insulin (2) Hypertension: Qualified Codes: I10 - Essential (primary) hypertension Zoey Carbone MD Jan 17, 2017 17:16
[2017-01-17] MEDS: TAMSULOSIN HCL 0.4 MG CAP PO SCH (23:32)
[2017-01-17] MEDS: INSULIN DETEMIR 100 UNITS/ML VIAL SQ SCH (23:37)
[2017-01-18] VITALS (9 sets, daily range): BP systolic 103–161; BP diastolic 62–79; PULSE 62–98; RESP 18–22; TEMP 97.6–98.7; O2SAT 95–99
[2017-01-18] MEDS: CHLORHEXIDINE GLUCONATE 2 % 1 PACK (2 CLOTHS) TOP SCH (04:00)
[2017-01-18] MEDS: INSULIN NovoLIN REGULAR SUPPLEMENTAL SCALE SQ SCH ×3 (06:00→18:41)
[2017-01-18] MEDS: hydrALAZINE HCL 50 MG TAB PO SCH ×3 (06:00→21:40)
[2017-01-18] MEDS: cloNIDine HCL 0.3 MG TAB PO SCH ×2 (08:00→18:16)
[2017-01-18] MEDS: INSULIN ASPART 1,000 UNITS/10 ML VIAL SQ SCH ×3 (08:00→18:16)
[2017-01-18] MEDS: CHLORHEXIDINE 0.12% (ORAL KIT) 15 ML CUP MT SCH ×2 (08:00→20:00)
[2017-01-18] MEDS: ARTIFICIAL TEARS OPTH SOLN 15 ML BTL EACH EYE SCH ×3 (08:53→18:00)
[2017-01-18] MEDS: TIOTROPIUM BROMIDE 18 MCG INH INH SCH (08:53)
[2017-01-18] MEDS: SODIUM CHLORIDE 0.9% FLUSH 10 ML FLUSH IV FLUSH SCH ×2 (08:54→21:42)
[2017-01-18] MEDS: HEPARIN SODIUM - SQ 10,000 UNITS/ML VIAL SQ SCH ×2 (08:54→21:41)
[2017-01-18] MEDS: CALCIUM ACETATE 667 MG CAP PO SCH ×3 (08:54→18:16)
[2017-01-18] MEDS: SODIUM CHLORIDE 0.9% FLUSH 10 ML FLUSH IVF SCH (08:54)
[2017-01-18] MEDS: BUDESONIDE-FORMOTEROL 160/4.5 MCG INHALER INH SCH ×2 (08:54→21:41)
[2017-01-18] MEDS: CARVEDILOL 6.25 MG TAB PO SCH ×2 (09:00→21:40)
[2017-01-18] MEDS: guaiFENesin E.R. 600 MG TAB PO SCH ×2 (12:16→21:40)
[2017-01-18] MEDS: CALCITRIOL 0.25 MCG CAP PO SCH (12:17)
[2017-01-18] MEDS: ASPIRIN 81 MG CHEW TAB CHEW SCH (12:17)
[2017-01-18] MEDS: ACETAMINOPHEN 325 MG TAB PO PRN (12:21)
[2017-01-18] MEDS: MAGNESIUM HYDROXIDE SUSP 30 ML CUP PO PRN (15:48)
--- NOTE | 2017-01-18 16:30 | HHI.PR ---
Subjective Remarks Follow-up for ESRD. Patient seen and examined, Patient improved sleep, having slept 5 hours last night. Pt did endorse having cough. Denies any recent fever, chills, shortness of breath, ab pain, hip pain, n/v/d. Afebrile. Per RN (Barbara) pt reported no acute issues overnight or since start of shift. Objective Vitals Vital Signs Date Time Temp Pulse Resp B/P (MAP) Pulse Ox O2 Delivery O2 Flow Rate FiO2 01/18/17 12:00 98.7 96 18 103/68 (80) 98 01/18/17 09:50 97 Nasal Cannula 2.00 01/18/17 08:00 Nasal Cannula 2.00 01/18/17 08:00 97.6 67 18 127/62 (83) 99 01/18/17 04:40 97.8 62 18 120/68 (85) 99 01/18/17 00:02 98.2 63 18 120/67 (84) 98 01/17/17 20:04 97.5 63 18 116/59 (78) 98 01/17/17 17:39 100 Nasal Cannula 2.00 01/17/17 17:28 97.7 64 16 104/59 (74) 100 I/O 01/17/17 01/17/17 01/17/17 01/18/17 01/18/17 01/18/17 07:00 15:00 23:00 07:00 15:00 23:00 Intake Total 240 ml 480 ml 100 ml Output Total 0 ml 2000 ml Balance 240 ml 480 ml 100 ml -2000 ml Intake Oral 240 ml 480 ml 100 ml Output Urine Total 0 ml Hemodialysis 2000 ml # Voids 1 1 # Bowel Movements 0 0 0 Imaging Last Impressions Chest X-Ray 01/12/17 0000 Signed Impressions: Service Date/Time: Thursday, January 12, 2017 11:15 - CONCLUSION: Dialysis catheter in good position. The lungs are clear. Marek Burnett MD FACR Carotid Artery Ultrasound 01/10/17 0000 Signed Impressions: Service Date/Time: Tuesday, January 10, 2017 12:25 - CONCLUSION: Negative examination for a hemodynamically significant carotid stenosis. Marek Burnett MD FACR Upper Extremity Ultrasound 01/05/17 0000 Signed Impressions: Service Date/Time: Thursday, January 05, 2017 18:56 - CONCLUSION: Normal examination. Ji Martinez MD Renal Biopsy CT 01/03/17 0000 Signed Impressions: Service Date/Time: Tuesday, January 03, 2017 13:28 - CONCLUSION: Uncomplicated CT guided biopsy. Ji Cedillo MD Central Venous Line 01/03/17 0000 Signed Impressions: Service Date/Time: Tuesday, January 03, 2017 00:00 - CONCLUSION: Uncomplicated catheter removal. Filiberto Rodarte MD Catheter Placement X-Ray 01/03/17 Signed Impressions: Service Date/Time: Tuesday, January 03, 2017 14:27 - CONCLUSION: Uncomplicated PermaCath placement as above. Filiberto Rodarte MD Chest CT 12/08/16 0000 Signed Impressions: Service Date/Time: Thursday, December 08, 2016 14:02 - CONCLUSION: 1. Bilateral lower lobe consolidating airspace disease. 2. Small to moderate bilateral pleural effusions; larger on the left. 3. Cardiomegaly. 4. Endotracheal and nasogastric tubes in good position. Tutu Christianson MD Renal Ultrasound 12/07/16 0000 Signed Impressions: Service Date/Time: November 07:54 - CONCLUSION: Unremarkable and stable bilateral renal ultrasound. No evidence of hydronephrosis. Baron Medrano MD Objective Remarks GENERAL: Pt encountered laying a bed, chronically ill appearing. NAD. Pt noted to have nasal cannula delivering oxygen (2L). SKIN: Warm and dry. HEAD: Normocephalic. EYES: No scleral icterus. No injection or drainage. NECK: Supple, trachea midline. No lymphadenopathy. CARDIOVASCULAR: Regular rate and rhythm without murmurs, gallops, or rubs. RESPIRATORY: Breath sounds equal bilaterally. No accessory muscle use. GASTROINTESTINAL: Abdomen soft, non-tender, nondistended. MUSCULOSKELETAL: No cyanosis, or edema. PSYCHIATRIC: affect blunted. Pt pleasant and cooperative. Procedures Echo 12/07/2016 Mildly dilated left ventricle. Wall thickness is normal. The left ventricular systolic function is normal with an estimated ejection fraction is 45-50%. There is distinct regional wall motion abnormalities with akinetic apex and possibly clot at the apex. Consider repeating study with contrast/Definity to better asses apex The right ventriclar size is upper limits of normal. The left atrial size is moderately dilated. The right atrial size is moderately dilated. [id number] mitral valve regurgitation. There is mild tricuspid valve regurgitation. There is estimated mild pulmonary hypertension present (range 40-50 mmHg). The pulmonary valve is not well visualized. The inferior vena cava is dilated. There is less than 50% respiratory change in dimension of the inferior vena cava (abnormal). Medications and IVs Current Medications Medications (Trade) Dose Ordered Sig/Abby Route Start Time Stop Time Status Last Admin (D50w (Vial) Inj) 25 ml UNSCH PRN IV PUSH 12/07/16 00:45 (NovoLIN R SUPPLEMENTAL SCALE) 1 Q6HR SQ 12/07/16 06:00 01/18/17 12:46 (Zofran Inj) 4 mg Q6H PRN IV 12/07/16 00:45 (NS Flush) DAILY IVF 12/07/16 15:30 01/14/17 09:00 (NS Flush) UNSCH PRN IVF 12/07/16 15:30 (Peridex 0.12% Liq) 15 ml BID@08,20 MT 12/07/16 20:00 01/15/17 08:00 (Albuterol Neb) 2.5 mg Q2HR NEB PRN NEB 12/07/16 15:30 01/17/17 09:43 (NS Flush) 2 ml UNSCH PRN IV FLUSH 12/07/16 15:30 12/12/16 11:32 (NS Flush) 2 ml BID IV FLUSH 12/07/16 21:00 01/17/17 21:12 (Tylenol) 650 mg Q6H PRN PO 12/07/16 15:30 01/18/17 12:21 (Tears Naturale Opth Soln) 1 drop TID EACH EYE 12/07/16 18:00 01/17/17 17:23 Miscellaneous Information 1 Q361D XX 12/07/16 15:30 (Chlorhexidine 2% Cloth) 3 pack Taper DAILY@04 TOP 12/08/16 04:00 12/04/17 03:59 01/01/17 03:31 (Chlorhexidine 2% Cloth) 3 pack UNSCH PRN TOP 12/07/16 15:30 (Milk Of Magnesia Liq) 30 ml Q12H PRN PO 12/07/16 15:30 01/18/17 15:48 (Senokot) 17.2 mg Q12H PRN PO 12/07/16 15:30 01/08/17 22:36 (Aspirin Chew) 81 mg DAILY CHEW 12/08/16 12:00 01/18/17 12:17 (Trandate Inj) 20 mg Q2H PRN IV 12/10/16 00:15 12/14/16 08:05 (Morphine Inj) 2 mg Q3H PRN IV PUSH 12/10/16 09:15 01/13/17 05:57 (Coreg) 6.25 mg Q12HR PO 12/10/16 10:00 01/17/17 23:32 (Phoslo) 1,334 mg TID PO 12/10/16 13:00 01/18/17 12:17 (Rocaltrol) 0.5 mcg DAILY PO 12/10/16 12:45 01/18/17 12:17 (Symbicort 160-4.5 Inh) 1 puff Q12HR INH 12/11/16 12:00 01/17/17 21:00 (Spiriva Inh) 18 mcg DAILY INH 12/11/16 12:00 01/17/17 09:06 (Norvasc) 10 mg DAILY PO 12/11/16 15:15 01/17/17 09:05 (Apresoline Inj) 20 mg Q4H PRN IV PUSH 12/11/16 15:15 12/18/16 04:26 (Catapres) 0.3 mg Q8H PO 12/12/16 08:00 01/17/17 23:32 Sodium Chloride 1,000 ml @ 0 mls/hr Q0M PRN IV 12/12/16 12:11 01/09/17 11:31 (Heparin Inj) 8,000 units UNSCH PRN IVF 12/12/16 12:15 01/06/17 10:58 Sodium Chloride 1,000 ml @ 200 mls/hr Q5H PRN IV 12/12/16 12:11 Sodium Chloride 1,000 ml @ 0 mls/hr Q0M PRN IV 12/12/16 12:11 12/12/16 17:04 (Mannitol Inj) 12.5 gm UNSCH PRN IV 12/12/16 12:15 (Albumin 25% Inj) 25 gm UNSCH PRN IV 12/12/16 12:15 (NS Flush) 5 ml UNSCH PRN IV FLUSH 12/12/16 12:15 12/26/16 10:34 (Heparin Inj) UNSCH PRN .XX 12/12/16 12:15 01/16/17 12:09 (Gentamicin (Dialysis) Inj) 20 mg UNSCH PRN IV 12/12/16 12:15 01/16/17 12:09 (Zofran Inj) 4 mg UNSCH PRN IV 12/12/16 12:15 (Tylenol) 650 mg UNSCH PRN PO 12/12/16 12:15 01/08/17 15:15 (Benadryl) 25 mg UNSCH PRN PO 12/12/16 12:15 (Nitrostat Sl) 0.4 mg UNSCH PRN SL 12/12/16 12:15 (Catapres) 0.1 mg UNSCH PRN PO 12/12/16 12:15 12/24/16 18:49 (Epogen Inj) 10,000 units UNSCH PRN IV 12/12/16 12:15 01/16/17 12:09 (Gelfoam 12 Mm/7 Mm Top) 1 foam UNSCH PRN TOP 12/12/16 12:15 (Apresoline) 50 mg Q8HR PO 12/26/16 14:00 01/18/17 06:00 (NS Flush) UNSCH PRN IVF 01/03/17 16:15 (Heparin Inj) UNSCH PRN IV FLUSH 01/03/17 16:15 (Heparin Inj) 5,000 units Q12HR SQ 01/07/17 09:00 01/17/17 21:00 (Mucinex Er) 600 mg BID PO 01/12/17 10:30 01/18/17 12:16 (Cepacol Extra Ha (Sugar Free)) 1 lozenge Q2HR PRN BUCCAL 01/13/17 13:00 (Flomax) 0.4 mg HS PO 01/14/17 21:00 01/17/17 23:32 (NovoLOG INJ) 8 units TIDAC SQ 01/15/17 12:30 01/18/17 12:16 (Levemir Inj) 37 units HS SQ 01/16/17 21:00 01/17/17 23:37 Urinary Catheter: No A/P Problem List: (1) Respiratory failure ICD Code: J96.90 - Respiratory failure, unspecified, unspecified whether with hypoxia or hypercapnia Status: Acute (2) Sepsis ICD Code: A41.9 - Sepsis, unspecified organism Status: Acute (3) Pneumonia ICD Code: J18.9 - Pneumonia, unspecified organism Status: Acute (4) left atrial thrombus Status: Acute (5) NSTEMI (non-ST elevated myocardial infarction) ICD Code: I21.4 - Non-ST elevation (NSTEMI) myocardial infarction Status: Resolved (6) ARF (acute renal failure) ICD Code: N17.9 - ARF (acute renal failure) Status: Acute (7) Diabetes mellitus ICD Code: E11.9 - Diabetes mellitus Status: Chronic (8) Morbid obesity ICD Code: E66.01 - Morbid (severe) obesity due to excess calories Status: Acute (9) Severe chronic obstructive pulmonary disease ICD Code: J44.9 - Chronic obstructive pulmonary disease, unspecified Status: Acute (10) CKD (chronic kidney disease) stage 4, GFR 15-29 ml/min ICD Code: N18.4 - Chronic kidney disease, stage 4 (severe) Status: Acute Assessment and Plan Mr. Mehta is a 66-year-old male with medical history significant for hypertension and diabetes and CVA who presented to the hospital with a chief complaint of shortness of breath and chest pain. The patient was diagnosed with NSTEMI. Echo was performed which was concerning for thrombus, but study was limited and a repeat was suggested. He has history of chronic kidney disease but worsening of his creatinine was noted. He was seen and evaluated by nephrology who started the patient on hemodialysis. ESRD: Pt to underwent dialysis this morning (01/18/17), Diabetes: Blood glucose evidences improvement. Continue to monitor. CKD stage IV with GFR 15-29. Acute renal failure progressing to ESRD - nephrology on board, started on hemodialysis. - PermaCath placed. Vascular surgery unable to find adequate vein for AVF. Will await nephrology further recommendations. - Kidney biopsy on 01/03/2017 --> diffuse and nodular diabetic glomerulosclerosis, segmental and global glomerular sclerosis, interstitial fibrosis and tubular atrophy severe. S/P acute respiratory failure secondary to bilateral lower lobe pneumonias/ community acquired - Urine antigens, sputum culture, blood cultures were all negative. S/p abx treatment course with azithromycin and Rocephin - Improved - Chest x-ray 01/12 clear and labs unremarkable for acute process - Continue guaifenesin and Acapella for cough - O2 if needed to keep sats >92%. COPD - Symbicort and Spiriva - Continue albuterol neb. NSTEMI Hypertension - Echo performed December 07 showed distinct regional wall abnormalities with a possible clot in the apex. - echo with Definity contrast did not appear to show any clots in LV. - Cardiology was consulted, stable from a cardiac standpoint and recommended continued aggressive risk factor modification - ASA 81 mg daily. Coreg 6.25 mg BID. Norvasc 10 mg daily. Clonidine to 0.3 mg po TID and hydralazine 50 mg by mouth daily 8 hour Diabetes mellitus - Continue Levemir 35 units QHS and sliding scale insulin. - pre-meal insulin 8 units TIDAC - Monitor Accu-Cheks and adjust regimen as indicated -Levemir increased to 37 units on 01/16/17. BPH - continue Tamsulosin. Sore throat: Likely secondary to recent intubation. Continue Cepacol lozenge as needed. Deconditioning: PT recommends SNF, generalized weakness likely due to prolonged hospitalization and multiple medical conditions as above. - Continue PT Sunday through Sunday while admitted Heparin SQ for DVT prophylaxis. Case discussed with Pt, RN, and Dr. Man. Discharge Planning Discharge plan: Pending outpatient dialysis arrangements. Problem Qualifiers (1) Respiratory failure: Qualified Codes: J96.00 - Acute respiratory failure, unspecified whether with hypoxia or hypercapnia (2) Sepsis: (3) Pneumonia: (4) ARF (acute renal failure): (5) Diabetes mellitus: Qualified Codes: E11.22 - Type 2 diabetes mellitus with diabetic chronic kidney disease; N18.4 - Chronic kidney disease, stage 4 (severe); Z79.4 - [facility] (current) use of insulin Montana Robles Jr. Jan 18, 2017 16:30
[2017-01-18] MEDS ORDERED: BISACODYL 10 MG SUPP RECTAL ONE (18:30)
[2017-01-18] MEDS: TAMSULOSIN HCL 0.4 MG CAP PO SCH (21:40)
[2017-01-18] MEDS: INSULIN DETEMIR 100 UNITS/ML VIAL SQ SCH (21:41)
[2017-01-18] MEDS: SOD PHOSPHATE/SOD BIPHOSPHATE (ADULT) ENEMA 133ML RECTAL PRN (21:45)
--- NOTE | 2017-01-18 21:49 | HHI.NPPN ---
Subjective History of Present Illness 66-year-old male with past medical history of hypertension, diabetes mellitus, history of cerebrovascular accident with left-sided weakness, hyperlipidemia, bronchial asthma, chronic kidney disease who was admitted because of shortness of breath and chest pain. I was called to see the patient because of elevated BUN and creatinine. The patient was diagnosed here with non-ST elevation [place]. The patient has history of chronic kidney disease. Additional Remarks Patient is alert, not in distress, has rectal pain and constipation. Objective Data Data 01/18/17 01/19/17 19:00 07:00 Output Total 2000 ml Balance -2000 ml Hemodialysis 2000 ml Vital Signs Date Time Temp Pulse Resp B/P (MAP) Pulse Ox O2 Delivery O2 Flow Rate FiO2 01/18/17 17:41 98 Nasal Cannula 2.00 01/18/17 16:00 98.7 98 18 126/67 (86) 98 01/18/17 12:00 98.7 96 18 103/68 (80) 98 01/18/17 09:50 97 Nasal Cannula 2.00 01/18/17 08:00 Nasal Cannula 2.00 01/18/17 08:00 97.6 67 18 127/62 (83) 99 01/18/17 04:40 97.8 62 18 120/68 (85) 99 01/18/17 00:02 98.2 63 18 120/67 (84) 98 Physical Exam General Appearance: No Acute Distress, Comfortable Eyes Eye Exam: Pupils Equal Throat Throat Exam: Oral Mucosa [place] & Moist Neck Neck Exam: Neck Supple Pulmonary Resp Exam: No Distress, Rhonchi, Decreased Bases, Diminished Breath Sounds Cardiology CV Exam: Regular, Normal Sinus Rhythm Gastrointestinal/Abdomen GI Exam: Soft, Non-Tender, Bowel Sounds Present Extremeties Extremities Exam: Moderate Edema Neurologic Neuro Exam: Alert, Awake Psychiatric Psych Exam: Appropriate Responses Assessment/Plan Assessment Summary: WILLIE/Acute Renal Failure, CHF, CKD Stage IV Problem List: (1) NSTEMI (non-ST elevated myocardial infarction) ICD Codes: I21.4 - Non-ST elevation (NSTEMI) myocardial infarction Status: Resolved (2) Diabetes mellitus ICD Codes: E11.9 - Diabetes mellitus Status: Chronic (3) Asthma ICD Codes: J45.909 - Asthma Status: Chronic (4) Shortness of breath ICD Codes: R06.02 - Shortness of breath Status: Acute (5) Leg edema ICD Codes: R60.0 - Leg edema Status: Acute (6) Hypertension ICD Codes: I10 - Hypertension Status: Chronic Plan Patient has been non oliguric, Creatinine is still elevated. K is normal, Follow urine out put and BMP. Has proteinuria, serology negative. Added Phoslo as Po4 is elevated and calcitriol as Calcium is low. BP is better. Follow urine out put and watch for any renal recovery. Got the PermCath , has poor flow from Vascath. The Kidney Biopsy showing Diabetic and Hypertensive renal disease. HD to continue as per schedule. Will need out patient HD arrangement also. Case management notes seen. HD to continue 3 times a week. Possible D/C once out patient HD arrangements done. Dulcolax suppository given. Problem Qualifiers (1) Diabetes mellitus: Qualified Codes: E11.22 - Type 2 diabetes mellitus with diabetic chronic kidney disease; N18.4 - Chronic kidney disease, stage 4 (severe); Z79.4 - prison (current) use of insulin (2) Hypertension: Qualified Codes: I10 - Essential (primary) hypertension Zoey Carbone MD Jan 18, 2017 21:48
[2017-01-19] VITALS (7 sets, daily range): BP systolic 103–142; BP diastolic 60–80; PULSE 63–88; RESP 16–18; TEMP 98.5–99.4; O2SAT 96–100
[2017-01-19] MEDS: cloNIDine HCL 0.3 MG TAB PO SCH ×3 (01:04→16:53)
[2017-01-19] MEDS: INSULIN NovoLIN REGULAR SUPPLEMENTAL SCALE SQ SCH ×5 (01:04→20:22)
[2017-01-19] MEDS: CHLORHEXIDINE GLUCONATE 2 % 1 PACK (2 CLOTHS) TOP SCH (04:00)
[2017-01-19] MEDS: hydrALAZINE HCL 50 MG TAB PO SCH ×3 (05:44→20:23)
[2017-01-19] MEDS: CHLORHEXIDINE 0.12% (ORAL KIT) 15 ML CUP MT SCH ×2 (08:00→20:00)
[2017-01-19] MEDS: SODIUM CHLORIDE 0.9% FLUSH 10 ML FLUSH IVF SCH (08:13)
[2017-01-19] MEDS: ASPIRIN 81 MG CHEW TAB CHEW SCH (08:29)
[2017-01-19] MEDS: CARVEDILOL 6.25 MG TAB PO SCH ×2 (08:29→20:23)
[2017-01-19] MEDS: DOCUSATE SODIUM 50 MG/SENNA 8.6 MG TAB PO SCH (08:29)
[2017-01-19] MEDS: HEPARIN SODIUM - SQ 10,000 UNITS/ML VIAL SQ SCH ×2 (08:29→20:19)
[2017-01-19] MEDS: CALCIUM ACETATE 667 MG CAP PO SCH ×3 (08:29→16:54)
[2017-01-19] MEDS: guaiFENesin E.R. 600 MG TAB PO SCH ×2 (08:29→20:19)
[2017-01-19] MEDS: CALCITRIOL 0.25 MCG CAP PO SCH (08:29)
[2017-01-19] MEDS: ARTIFICIAL TEARS OPTH SOLN 15 ML BTL EACH EYE SCH ×3 (08:30→16:54)
[2017-01-19] MEDS: INSULIN ASPART 1,000 UNITS/10 ML VIAL SQ SCH ×3 (08:30→16:54)
[2017-01-19] MEDS: BUDESONIDE-FORMOTEROL 160/4.5 MCG INHALER INH SCH ×2 (08:31→20:25)
[2017-01-19] MEDS: TIOTROPIUM BROMIDE 18 MCG INH INH SCH (08:31)
[2017-01-19] MEDS: SODIUM CHLORIDE 0.9% FLUSH 10 ML FLUSH IV FLUSH SCH ×2 (08:31→20:23)
--- NOTE | 2017-01-19 13:12 | HHI.PR ---
Subjective Remarks Follow-up for ESRD. Patient seen and examined, Patient good quality of sleep despite having slept 3 hours last night. Pt denied cough, constipation, rectal pain/itch. No issues/questions raised by pt. Denies any recent fever, chills, shortness of breath, ab pain, hip pain, n/v/d. Afebrile. Per RN (Kathryn) pt had two bowel movements since last night and early this morning. RN reported no acute issues overnight or since start of shift. Objective Vitals Vital Signs Date Time Temp Pulse Resp B/P (MAP) Pulse Ox O2 Delivery O2 Flow Rate FiO2 01/19/17 08:35 99 Nasal Cannula 2.00 01/19/17 08:25 Nasal Cannula 2.00 01/19/17 08:00 99.4 88 18 142/70 (94) 98 01/19/17 04:55 99.4 87 16 121/75 (90) 96 01/18/17 23:20 98.7 88 22 161/79 (106) 95 01/18/17 21:00 98.7 77 20 133/70 (91) 98 01/18/17 20:00 Nasal Cannula 2.00 01/18/17 17:41 98 Nasal Cannula 2.00 01/18/17 16:00 98.7 98 18 126/67 (86) 98 I/O 01/18/17 01/18/17 01/18/17 01/19/17 01/19/17 01/19/17 07:00 15:00 23:00 07:00 15:00 23:00 Intake Total 100 ml 100 ml Output Total 0 ml 2000 ml Balance 100 ml -2000 ml 100 ml Intake Oral 100 ml 100 ml Output Urine Total 0 ml Hemodialysis 2000 ml # Voids 1 # Bowel Movements 0 2 Objective Remarks GENERAL: Pt encountered laying a bed, chronically ill appearing. NAD. Pt noted not to be wearing nasal cannula. SKIN: Warm and dry. HEAD: Normocephalic. EYES: No scleral icterus. No injection or drainage. NECK: Supple, trachea midline. No lymphadenopathy. CARDIOVASCULAR: Regular rate and rhythm without murmurs, gallops, or rubs. RESPIRATORY: Breath sounds equal bilaterally. No accessory muscle use. GASTROINTESTINAL: Abdomen soft, non-tender, nondistended. MUSCULOSKELETAL: No cyanosis, or edema. PSYCHIATRIC: affect blunted. Pt pleasant and cooperative. Procedures Echo 12/07/2016 Mildly dilated left ventricle. Wall thickness is normal. The left ventricular systolic function is normal with an estimated ejection fraction is 45-50%. There is distinct regional wall motion abnormalities with akinetic apex and possibly clot at the apex. Consider repeating study with contrast/Definity to better asses apex The right ventriclar size is upper limits of normal. The left atrial size is moderately dilated. The right atrial size is moderately dilated. [id number] mitral valve regurgitation. There is mild tricuspid valve regurgitation. There is estimated mild pulmonary hypertension present (range 40-50 mmHg). The pulmonary valve is not well visualized. The inferior vena cava is dilated. There is less than 50% respiratory change in dimension of the inferior vena cava (abnormal). Medications and IVs Current Medications Medications (Trade) Dose Ordered Sig/Abby Route Start Time Stop Time Status Last Admin (D50w (Vial) Inj) 25 ml UNSCH PRN IV PUSH 12/07/16 00:45 (Zofran Inj) 4 mg Q6H PRN IV 12/07/16 00:45 (NS Flush) DAILY IVF 12/07/16 15:30 01/14/17 09:00 (NS Flush) UNSCH PRN IVF 12/07/16 15:30 (Peridex 0.12% Liq) 15 ml BID@08,20 MT 12/07/16 20:00 01/15/17 08:00 (Albuterol Neb) 2.5 mg Q2HR NEB PRN NEB 12/07/16 15:30 01/17/17 09:43 (NS Flush) 2 ml UNSCH PRN IV FLUSH 12/07/16 15:30 12/12/16 11:32 (NS Flush) 2 ml BID IV FLUSH 12/07/16 21:00 01/19/17 08:31 (Tylenol) 650 mg Q6H PRN PO 12/07/16 15:30 01/18/17 12:21 (Tears Naturale Opth Soln) 1 drop TID EACH EYE 12/07/16 18:00 01/17/17 17:23 Miscellaneous Information 1 Q361D XX 12/07/16 15:30 (Chlorhexidine 2% Cloth) 3 pack Taper DAILY@04 TOP 12/08/16 04:00 12/04/17 03:59 9//17 03:31 (Chlorhexidine 2% Cloth) 3 pack UNSCH PRN TOP 12/07/16 15:30 (Milk Of Juanpablo Liq) 30 ml Q12H PRN PO 12/07/16 15:30 01/18/17 15:48 (Senokot) 17.2 mg Q12H PRN PO 12/07/16 15:30 01/08/17 22:36 (Aspirin Chew) 81 mg DAILY CHEW 12/08/16 12:00 01/19/17 08:29 (Trandate Inj) 20 mg Q2H PRN IV 12/10/16 00:15 12/14/16 08:05 (Morphine Inj) 2 mg Q3H PRN IV PUSH 12/10/16 09:15 01/13/17 05:57 (Coreg) 6.25 mg Q12HR PO 12/10/16 10:00 01/19/17 08:29 (Phoslo) 1,334 mg TID PO 12/10/16 13:00 01/19/17 12:00 (Rocaltrol) 0.5 mcg DAILY PO 12/10/16 12:45 01/19/17 08:29 (Symbicort 160-4.5 Inh) 1 puff Q12HR INH 12/11/16 12:00 01/19/17 08:31 (Spiriva Inh) 18 mcg DAILY INH 12/11/16 12:00 01/19/17 08:31 (Norvasc) 10 mg DAILY PO 12/11/16 15:15 01/19/17 08:29 (Apresoline Inj) 20 mg Q4H PRN IV PUSH 12/11/16 15:15 12/18/16 04:26 (Catapres) 0.3 mg Q8H PO 12/12/16 08:00 01/19/17 08:29 Sodium Chloride 1,000 ml @ 0 mls/hr Q0M PRN IV 12/12/16 12:11 01/09/17 11:31 (Heparin Inj) 8,000 units UNSCH PRN IVF 12/12/16 12:15 01/06/17 10:58 Sodium Chloride 1,000 ml @ 200 mls/hr Q5H PRN IV 12/12/16 12:11 Sodium Chloride 1,000 ml @ 0 mls/hr Q0M PRN IV 12/12/16 12:11 12/12/16 17:04 (Mannitol Inj) 12.5 gm UNSCH PRN IV 12/12/16 12:15 (Albumin 25% Inj) 25 gm UNSCH PRN IV 12/12/16 12:15 (NS Flush) 5 ml UNSCH PRN IV FLUSH 12/12/16 12:15 12/26/16 10:34 (Heparin Inj) UNSCH PRN .XX 12/12/16 12:15 01/16/17 12:09 (Gentamicin (Dialysis) Inj) 20 mg UNSCH PRN IV 12/12/16 12:15 01/16/17 12:09 (Zofran Inj) 4 mg UNSCH PRN IV 12/12/16 12:15 (Tylenol) 650 mg UNSCH PRN PO 12/12/16 12:15 01/08/17 15:15 (Benadryl) 25 mg UNSCH PRN PO 12/12/16 12:15 (Nitrostat Sl) 0.4 mg UNSCH PRN SL 12/12/16 12:15 (Catapres) 0.1 mg UNSCH PRN PO 12/12/16 12:15 12/24/16 18:49 (Epogen Inj) 10,000 units UNSCH PRN IV 12/12/16 12:15 01/16/17 12:09 (Gelfoam 12 Mm/7 Mm Top) 1 foam UNSCH PRN TOP 12/12/16 12:15 (Apresoline) 50 mg Q8HR PO 12/26/16 14:00 01/19/17 05:44 (NS Flush) UNSCH PRN IVF 01/03/17 16:15 (Heparin Inj) UNSCH PRN IV FLUSH 01/03/17 16:15 (Heparin Inj) 5,000 units Q12HR SQ 01/07/17 09:00 01/19/17 08:29 (Mucinex Er) 600 mg BID PO 01/12/17 10:30 01/19/17 08:29 (Cepacol Extra Ha (Sugar Free)) 1 lozenge Q2HR PRN BUCCAL 01/13/17 13:00 (Flomax) 0.4 mg HS PO 01/14/17 21:00 01/18/17 21:40 (NovoLOG INJ) 8 units TIDAC SQ 01/15/17 12:30 01/19/17 12:00 (Levemir Inj) 37 units HS SQ 01/16/17 21:00 01/18/17 21:41 (Fleets Enema (Adult)) 133 ml UNSCH PRN RECTAL 01/18/17 18:30 01/18/17 21:45 (Sara-Colace) 1 tab DAILY PO 01/19/17 09:00 01/19/17 08:29 (NovoLIN R SUPPLEMENTAL SCALE) 1 ACHS SQ 01/19/17 12:00 01/19/17 11:59 Urinary Catheter: No A/P Problem List: (1) Respiratory failure ICD Code: J96.90 - Respiratory failure, unspecified, unspecified whether with hypoxia or hypercapnia Status: Acute (2) Sepsis ICD Code: A41.9 - Sepsis, unspecified organism Status: Acute (3) Pneumonia ICD Code: J18.9 - Pneumonia, unspecified organism Status: Acute (4) left atrial thrombus Status: Acute (5) NSTEMI (non-ST elevated myocardial infarction) ICD Code: I21.4 - Non-ST elevation (NSTEMI) myocardial infarction Status: Resolved (6) ARF (acute renal failure) ICD Code: N17.9 - ARF (acute renal failure) Status: Acute (7) Diabetes mellitus ICD Code: E11.9 - Diabetes mellitus Status: Chronic (8) Morbid obesity ICD Code: E66.01 - Morbid (severe) obesity due to excess calories Status: Acute (9) Severe chronic obstructive pulmonary disease ICD Code: J44.9 - Chronic obstructive pulmonary disease, unspecified Status: Acute (10) CKD (chronic kidney disease) stage 4, GFR 15-29 ml/min ICD Code: N18.4 - Chronic kidney disease, stage 4 (severe) Status: Acute Assessment and Plan Mr. Mehta is a 66-year-old male with medical history significant for hypertension and diabetes and CVA who presented to the hospital with a chief complaint of shortness of breath and chest pain. The patient was diagnosed with NSTEMI. Echo was performed which was concerning for thrombus, but study was limited and a repeat was suggested. He has history of chronic kidney disease but worsening of his creatinine was noted. He was seen and evaluated by nephrology who started the patient on hemodialysis. ESRD: Pt to underwent dialysis yesterday (01/18/17), next session to be 01/20/17 Diabetes: Blood glucose noted to be slightly elevated; received 8 units this AM per sliding scale. Continue to monitor. Constipation: received MOM, Ducolax and Fleet enema last evening. Two bowel movements reported. Daily stool softener ordered. CKD stage IV with GFR 15-29. Acute renal failure progressing to ESRD - nephrology on board, started on hemodialysis. - PermaCath placed. Vascular surgery unable to find adequate vein for AVF. Will await nephrology further recommendations. - Kidney biopsy on 01/03/2017 --> diffuse and nodular diabetic glomerulosclerosis, segmental and global glomerular sclerosis, interstitial fibrosis and tubular atrophy severe. S/P acute respiratory failure secondary to bilateral lower lobe pneumonias/ community acquired - Urine antigens, sputum culture, blood cultures were all negative. S/p abx treatment course with azithromycin and Rocephin - Improved - Chest x-ray 01/12 clear and labs unremarkable for acute process - Continue guaifenesin and Acapella for cough - O2 if needed to keep sats >92%. COPD - Symbicort and Spiriva - Continue albuterol neb. NSTEMI Hypertension - Echo performed December 07 showed distinct regional wall abnormalities with a possible clot in the apex. - echo with Definity contrast did not appear to show any clots in LV. - Cardiology was consulted, stable from a cardiac standpoint and recommended continued aggressive risk factor modification - ASA 81 mg daily. Coreg 6.25 mg BID. Norvasc 10 mg daily. Clonidine to 0.3 mg po TID and hydralazine 50 mg by mouth daily 8 hour Diabetes mellitus - Continue Levemir 35 units QHS and sliding scale insulin. - pre-meal insulin 8 units TIDAC - Monitor Accu-Cheks and adjust regimen as indicated -Levemir increased to 37 units on 01/16/17. BPH - continue Tamsulosin. Sore throat: Likely secondary to recent intubation. Continue Cepacol lozenge as needed. Deconditioning: PT recommends SNF, generalized weakness likely due to prolonged hospitalization and multiple medical conditions as above. - Continue PT Sunday through Sunday while admitted Heparin SQ for DVT prophylaxis. Case discussed with Pt, RN, and Dr. Man. Discharge Planning Discharge plan: Pending outpatient dialysis arrangements. Problem Qualifiers (1) Respiratory failure: Qualified Codes: J96.00 - Acute respiratory failure, unspecified whether with hypoxia or hypercapnia (2) Sepsis: (3) Pneumonia: (4) ARF (acute renal failure): (5) Diabetes mellitus: Qualified Codes: E11.22 - Type 2 diabetes mellitus with diabetic chronic kidney disease; N18.4 - Chronic kidney disease, stage 4 (severe); Z79.4 - track man (current) use of insulin Montana Robles Jr. Jan 19, 2017 13:12
--- NOTE | 2017-01-19 16:16 | HHI.NPPN ---
Subjective History of Present Illness 66-year-old male with past medical history of hypertension, diabetes mellitus, history of cerebrovascular accident with left-sided weakness, hyperlipidemia, bronchial asthma, chronic kidney disease who was admitted because of shortness of breath and chest pain. I was called to see the patient because of elevated BUN and creatinine. The patient was diagnosed here with non-ST elevation [place]. The patient has history of chronic kidney disease. Additional Remarks Patient is alert, not in distress, no SOB, eating well. Objective Data Data Vital Signs Date Time Temp Pulse Resp B/P (MAP) Pulse Ox O2 Delivery O2 Flow Rate FiO2 01/19/17 12:00 98.5 80 18 120/60 (80) 98 01/19/17 08:35 99 Nasal Cannula 2.00 01/19/17 08:25 Nasal Cannula 2.00 01/19/17 08:00 99.4 88 18 142/70 (94) 98 01/19/17 04:55 99.4 87 16 121/75 (90) 96 01/18/17 23:20 98.7 88 22 161/79 (106) 95 01/18/17 21:00 98.7 77 20 133/70 (91) 98 01/18/17 20:00 Nasal Cannula 2.00 01/18/17 17:41 98 Nasal Cannula 2.00 Physical Exam General Appearance: No Acute Distress, Comfortable Eyes Eye Exam: Pupils Equal Throat Throat Exam: Oral Mucosa [place] & Moist Neck Neck Exam: Neck Supple Pulmonary Resp Exam: No Distress, Rhonchi, Decreased Bases, Diminished Breath Sounds Cardiology CV Exam: Regular, Normal Sinus Rhythm Gastrointestinal/Abdomen GI Exam: Soft, Non-Tender, Bowel Sounds Present Extremeties Extremities Exam: Moderate Edema Neurologic Neuro Exam: Alert, Awake Psychiatric Psych Exam: Appropriate Responses Assessment/Plan Assessment Summary: WILLIE/Acute Renal Failure, CHF, CKD Stage IV Problem List: (1) NSTEMI (non-ST elevated myocardial infarction) ICD Codes: I21.4 - Non-ST elevation (NSTEMI) myocardial infarction Status: Resolved (2) Diabetes mellitus ICD Codes: E11.9 - Diabetes mellitus Status: Chronic (3) Asthma ICD Codes: J45.909 - Asthma Status: Chronic (4) Shortness of breath ICD Codes: R06.02 - Shortness of breath Status: Acute (5) Leg edema ICD Codes: R60.0 - Leg edema Status: Acute (6) Hypertension ICD Codes: I10 - Hypertension Status: Chronic Plan Patient has been non oliguric, Creatinine is still elevated. K is normal, Follow urine out put and BMP. Has proteinuria, serology negative. Added Phoslo as Po4 is elevated and calcitriol as Calcium is low. BP is better. Follow urine out put and watch for any renal recovery. Got the PermCath , has poor flow from Vascath. The Kidney Biopsy showing Diabetic and Hypertensive renal disease. HD to continue as per schedule. Will need out patient HD arrangement also. Case management notes seen. HD to continue 3 times a week. Possible D/C once out patient HD arrangements done. I will discuss with the family. Problem Qualifiers (1) Diabetes mellitus: Qualified Codes: E11.22 - Type 2 diabetes mellitus with diabetic chronic kidney disease; N18.4 - Chronic kidney disease, stage 4 (severe); Z79.4 - retirement (current) use of insulin (2) Hypertension: Qualified Codes: I10 - Essential (primary) hypertension Zoey Carbone MD Jan 19, 2017 16:16
[2017-01-19] MEDS: TAMSULOSIN HCL 0.4 MG CAP PO SCH (20:19)
[2017-01-19] MEDS: INSULIN DETEMIR 100 UNITS/ML VIAL SQ SCH (20:19)
[2017-01-20] MEDS: cloNIDine HCL 0.3 MG TAB PO SCH ×4 (00:13→22:56)
[2017-01-20] MEDS: CHLORHEXIDINE GLUCONATE 2 % 1 PACK (2 CLOTHS) TOP SCH (03:27)
[2017-01-20 04:10] VITALS: BP 120/64; PULSE 66; RESP 16; TEMP 98.2; O2SAT 98
[2017-01-20] MEDS: hydrALAZINE HCL 50 MG TAB PO SCH ×3 (05:18→22:56)
[2017-01-20 08:00] VITALS: BP 140/73; PULSE 78; RESP 18; TEMP 98.6; O2SAT 96
[2017-01-20] MEDS: INSULIN ASPART 1,000 UNITS/10 ML VIAL SQ SCH ×3 (08:00→16:45)
[2017-01-20] MEDS: CHLORHEXIDINE 0.12% (ORAL KIT) 15 ML CUP MT SCH ×2 (08:00→20:00)
[2017-01-20] MEDS: INSULIN NovoLIN REGULAR SUPPLEMENTAL SCALE SQ SCH ×4 (08:00→23:21)
[2017-01-20 08:03] LABS: AUTOMATED NEUTROPHIL # 4.7 TH/MM3 (1.8-7.7); BASOPHIL # 0.1 TH/MM3 (0-0.2); BASOPHIL % 1.1 % (0.0-2.0); EOSINOPHIL # 0.3 TH/MM3 (0-0.4); HEMO FLAGS DIFF FINAL; LYMPH % 23.5 % (9.0-44.0); LYMPHOCYTE # 1.9 TH/MM3 (1.0-4.8); MEAN CELL VOLUME 87.4 FL (80.0-100.0); MEAN CORPUSCULAR HEMOGLOBIN 27.6 PG (27.0-34.0); MEAN CORPUSCULAR HGB CONC 31.5 % (32.0-36.0); MONO % 15.8 % (0.0-8.0); NEUT % 56.6 % (16.0-70.0); PLATELET COUNT 359 TH/MM3 (150-450); RED BLOOD COUNT 3.77 MIL/MM3 (4.50-5.90); RED CELL DISTRIBUTION WIDTH 16.1 % (11.6-17.2); REVIEW FLAG FINAL; WHITE BLOOD COUNT 8.2 TH/MM3 (4.0-11.0)
[2017-01-20] MEDS: SODIUM CHLORIDE 0.9% FLUSH 10 ML FLUSH IVF SCH (09:00)
[2017-01-20] MEDS: CARVEDILOL 6.25 MG TAB PO SCH ×2 (09:15→22:56)
[2017-01-20] MEDS: CALCITRIOL 0.25 MCG CAP PO SCH (09:15)
[2017-01-20] MEDS: CALCIUM ACETATE 667 MG CAP PO SCH ×3 (09:15→16:45)
[2017-01-20] MEDS: DOCUSATE SODIUM 50 MG/SENNA 8.6 MG TAB PO SCH (09:16)
[2017-01-20] MEDS: SODIUM CHLORIDE 0.9% FLUSH 10 ML FLUSH IV FLUSH SCH ×2 (09:16→22:57)
[2017-01-20] MEDS: guaiFENesin E.R. 600 MG TAB PO SCH ×2 (09:16→22:56)
[2017-01-20] MEDS: ASPIRIN 81 MG CHEW TAB CHEW SCH (09:16)
[2017-01-20] MEDS: HEPARIN SODIUM - SQ 10,000 UNITS/ML VIAL SQ SCH ×2 (09:17→22:56)
[2017-01-20] MEDS: ARTIFICIAL TEARS OPTH SOLN 15 ML BTL EACH EYE SCH ×3 (09:18→16:45)
[2017-01-20] MEDS: BUDESONIDE-FORMOTEROL 160/4.5 MCG INHALER INH SCH ×2 (09:19→22:57)
[2017-01-20] MEDS: TIOTROPIUM BROMIDE 18 MCG INH INH SCH (09:19)
[2017-01-20 09:35] VITALS: O2SAT 92
[2017-01-20 12:00] VITALS: BP 140/74; PULSE 87; RESP 18; TEMP 98.6; O2SAT 95
[2017-01-20] MEDS: HEPARIN SODIUM - IV 10,000 UNITS/10 ML VIAL PRN (13:08)
[2017-01-20] MEDS: ALBUMIN HUMAN 25% 25 GM/100 ML BAGP IV PRN (13:09)
[2017-01-20] MEDS: EPOETIN ALFA 10,000 UNITS/ML VIAL IV PRN (13:09)
[2017-01-20] MEDS: GENTAMICIN SULFATE (DIALYSIS USE ONLY) 20 MG/2 ML VIAL IV PRN (13:09)
--- NOTE | 2017-01-20 14:22 | HHI.PR ---
Subjective Remarks Follow-up for ESRD. Patient seen and examined, Patient good quality of sleep despite having again slept 3 hours last night. Pt denied cough, constipation, rectal pain/itch. Pt indicated he is eating well. No issues/questions raised by pt. Denies any recent fever, chills, shortness of breath, ab pain, hip pain, n/v/d. Afebrile. Per RN (Dominga) pt had two bowel movements in the past 24 hours. RN reported no acute issues overnight or since start of shift. RN stated pt is to undergo dialysis later in the day. Objective Vitals Vital Signs Date Time Temp Pulse Resp B/P (MAP) Pulse Ox O2 Delivery O2 Flow Rate FiO2 01/20/17 12:00 98.6 87 18 140/74 (96) 95 01/20/17 09:35 92 Nasal Cannula 3.00 01/20/17 08:00 98.6 78 18 140/73 (95) 96 01/20/17 07:00 Nasal Cannula 2.00 01/20/17 04:10 98.2 66 16 120/64 (82) 98 01/20/17 04:00 Nasal Cannula 2.00 01/20/17 00:00 Nasal Cannula 2.00 01/19/17 23:55 98.5 63 16 122/67 (85) 99 01/19/17 20:20 Nasal Cannula 2.00 01/19/17 20:12 98.8 65 16 103/62 (76) 100 01/19/17 16:00 98.7 65 18 132/80 (97) 98 I/O 01/19/17 01/19/17 01/19/17 01/20/17 01/20/17 01/20/17 07:00 15:00 23:00 07:00 15:00 23:00 Intake Total 100 ml 1200 ml 200 ml 100 ml Output Total 0 ml Balance 100 ml 1200 ml 200 ml 100 ml Intake Oral 100 ml 1200 ml 200 ml IV Total 100 ml Output Urine Total 0 ml # Voids 1 2 # Bowel Movements 2 2 0 Result Diagram: 01/20/17 0645 Imaging Last Impressions Chest X-Ray 01/12/17 0000 Signed Impressions: Service Date/Time: Thursday, January 12, 2017 11:15 - CONCLUSION: Dialysis catheter in good position. The lungs are clear. Marek Burnett MD FACR Carotid Artery Ultrasound 01/10/17 0000 Signed Impressions: Service Date/Time: Tuesday, January 10, 2017 12:25 - CONCLUSION: Negative examination for a hemodynamically significant carotid stenosis. Marek Burnett MD FACR Upper Extremity Ultrasound 01/05/17 Signed Impressions: Service Date/Time: Thursday, January 05, 2017 18:56 - CONCLUSION: Normal examination. Ji Martinez MD Renal Biopsy CT 01/03/17 Signed Impressions: Service Date/Time: Tuesday, January 03, 2017 13:28 - CONCLUSION: Uncomplicated CT guided biopsy. Ji Cedillo MD Central Venous Line 01/03/17 Signed Impressions: Service Date/Time: Tuesday, January 03, 2017 00:00 - CONCLUSION: Uncomplicated catheter removal. Filiberto Rodarte MD Catheter Placement X-Ray 01/03/17 Signed Impressions: Service Date/Time: Tuesday, January 03, 2017 14:27 - CONCLUSION: Uncomplicated PermaCath placement as above. Filiberto Rodarte MD Chest CT 12/08/16 0000 Signed Impressions: Service Date/Time: Thursday, December 08, 2016 14:02 - CONCLUSION: 1. Bilateral lower lobe consolidating airspace disease. 2. Small to moderate bilateral pleural effusions; larger on the left. 3. Cardiomegaly. 4. Endotracheal and nasogastric tubes in good position. Tutu Christianson MD Renal Ultrasound 12/07/16 0000 Signed Impressions: Service Date/Time: November 07:54 - CONCLUSION: Unremarkable and stable bilateral renal ultrasound. No evidence of hydronephrosis. Baron Medrano MD Objective Remarks GENERAL: Pt encountered laying a bed, chronically ill appearing. NAD. Pt noted not to be wearing nasal cannula. SKIN: Warm and dry. HEAD: Normocephalic. EYES: No scleral icterus. No injection or drainage. NECK: Supple, trachea midline. No lymphadenopathy. CARDIOVASCULAR: Regular rate and rhythm without murmurs, gallops, or rubs. RESPIRATORY: Breath sounds equal bilaterally. No accessory muscle use. GASTROINTESTINAL: Abdomen soft, non-tender, nondistended. MUSCULOSKELETAL: No cyanosis, or edema. PSYCHIATRIC: affect blunted. Pt pleasant and cooperative. Procedures Echo 12/07/2016 Mildly dilated left ventricle. Wall thickness is normal. The left ventricular systolic function is normal with an estimated ejection fraction is 45-50%. There is distinct regional wall motion abnormalities with akinetic apex and possibly clot at the apex. Consider repeating study with contrast/Definity to better asses apex The right ventriclar size is upper limits of normal. The left atrial size is moderately dilated. The right atrial size is moderately dilated. [id number] mitral valve regurgitation. There is mild tricuspid valve regurgitation. There is estimated mild pulmonary hypertension present (range 40-50 mmHg). The pulmonary valve is not well visualized. The inferior vena cava is dilated. There is less than 50% respiratory change in dimension of the inferior vena cava (abnormal). Medications and IVs Current Medications Medications (Trade) Dose Ordered Sig/Abby Route Start Time Stop Time Status Last Admin (D50w (Vial) Inj) 25 ml UNSCH PRN IV PUSH 12/07/16 00:45 (Zofran Inj) 4 mg Q6H PRN IV 12/07/16 00:45 (NS Flush) DAILY IVF 12/07/16 15:30 01/14/17 09:00 (NS Flush) UNSCH PRN IVF 12/07/16 15:30 (Peridex 0.12% Liq) 15 ml BID@08,20 MT 12/07/16 20:00 01/15/17 08:00 (Albuterol Neb) 2.5 mg Q2HR NEB PRN NEB 12/07/16 15:30 01/17/17 09:43 (NS Flush) 2 ml UNSCH PRN IV FLUSH 12/07/16 15:30 12/12/16 11:32 (NS Flush) 2 ml BID IV FLUSH 12/07/16 21:00 01/20/17 09:16 (Tylenol) 650 mg Q6H PRN PO 12/07/16 15:30 01/18/17 12:21 (Tears Naturale Opth Soln) 1 drop TID EACH EYE 12/07/16 18:00 01/20/17 09:18 Miscellaneous Information 1 Q361D XX 12/07/16 15:30 (Chlorhexidine 2% Cloth) Taper DAILY@04 TOP 12/08/16 04:00 12/04/17 03:59 01/01/17 03:31 (Chlorhexidine 2% Cloth) 3 pack UNSCH PRN TOP 12/07/16 15:30 (Milk Of Magnesia Liq) 30 ml Q12H PRN PO 12/07/16 15:30 01/18/17 15:48 (Senokot) 17.2 mg Q12H PRN PO 12/07/16 15:30 01/08/17 22:36 (Aspirin Chew) 81 mg DAILY CHEW 12/08/16 12:00 01/20/17 09:16 (Trandate Inj) 20 mg Q2H PRN IV 12/10/16 00:15 12/14/16 08:05 (Morphine Inj) 2 mg Q3H PRN IV PUSH 12/10/16 09:15 01/13/17 05:57 (Coreg) 6.25 mg Q12HR PO 12/10/16 10:00 01/20/17 09:15 (Phoslo) 1,334 mg TID PO 12/10/16 13:00 01/20/17 09:15 (Rocaltrol) 0.5 mcg DAILY PO 12/10/16 12:45 01/20/17 09:15 (Symbicort 160-4.5 Inh) 1 puff Q12HR INH 12/11/16 12:00 01/20/17 09:19 (Spiriva Inh) 18 mcg DAILY INH 12/11/16 12:00 01/20/17 09:19 (Norvasc) 10 mg DAILY PO 12/11/16 15:15 01/20/17 09:16 (Apresoline Inj) 20 mg Q4H PRN IV PUSH 12/11/16 15:15 12/18/16 04:26 (Catapres) 0.3 mg Q8H PO 12/12/16 08:00 01/20/17 09:16 Sodium Chloride 1,000 ml @ 0 mls/hr Q0M PRN IV 12/12/16 12:11 01/09/17 11:31 (Heparin Inj) 8,000 units UNSCH PRN IVF 12/12/16 12:15 01/06/17 10:58 Sodium Chloride 1,000 ml @ 200 mls/hr Q5H PRN IV 12/12/16 12:11 Sodium Chloride 1,000 ml @ 0 mls/hr Q0M PRN IV 12/12/16 12:11 12/12/16 17:04 (Mannitol Inj) 12.5 gm UNSCH PRN IV 12/12/16 12:15 (Albumin 25% Inj) 25 gm UNSCH PRN IV 12/12/16 12:15 01/20/17 13:09 (NS Flush) 5 ml UNSCH PRN IV FLUSH 12/12/16 12:15 12/26/16 10:34 (Heparin Inj) UNSCH PRN .XX 12/12/16 12:15 01/20/17 13:08 (Gentamicin (Dialysis) Inj) 20 mg UNSCH PRN IV 12/12/16 12:15 01/20/17 13:09 (Zofran Inj) 4 mg UNSCH PRN IV 12/12/16 12:15 (Tylenol) 650 mg UNSCH PRN PO 12/12/16 12:15 01/08/17 15:15 (Benadryl) 25 mg UNSCH PRN PO 12/12/16 12:15 (Nitrostat Sl) 0.4 mg UNSCH PRN SL 12/12/16 12:15 (Catapres) 0.1 mg UNSCH PRN PO 12/12/16 12:15 12/24/16 18:49 (Epogen Inj) 10,000 units UNSCH PRN IV 12/12/16 12:15 01/20/17 13:09 (Gelfoam 12 Mm/7 Mm Top) 1 foam UNSCH PRN TOP 12/12/16 12:15 (Apresoline) 50 mg Q8HR PO 12/26/16 14:00 01/20/17 05:18 (NS Flush) UNSCH PRN IVF 01/03/17 16:15 (Heparin Inj) UNSCH PRN IV FLUSH 01/03/17 16:15 (Heparin Inj) 5,000 units Q12HR SQ 01/07/17 09:00 01/20/17 09:17 (Mucinex Er) 600 mg BID PO 01/12/17 10:30 01/20/17 09:16 (Cepacol Extra Ha (Sugar Free)) 1 lozenge Q2HR PRN BUCCAL 01/13/17 13:00 (Flomax) 0.4 mg HS PO 01/14/17 21:00 01/19/17 20:19 (NovoLOG INJ) 8 units TIDAC SQ 01/15/17 12:30 01/20/17 08:00 (Levemir Inj) 37 units HS SQ 01/16/17 21:00 01/19/17 20:19 (Fleets Enema (Adult)) 133 ml UNSCH PRN RECTAL 01/18/17 18:30 01/18/17 21:45 (Sara-Colace) 1 tab DAILY PO 01/19/17 09:00 01/20/17 09:16 (NovoLIN R SUPPLEMENTAL SCALE) 1 ACHS SQ 01/19/17 12:00 01/19/17 20:22 Urinary Catheter: No A/P Problem List: (1) Respiratory failure ICD Code: J96.90 - Respiratory failure, unspecified, unspecified whether with hypoxia or hypercapnia Status: Acute (2) Sepsis ICD Code: A41.9 - Sepsis, unspecified organism Status: Acute (3) Pneumonia ICD Code: J18.9 - Pneumonia, unspecified organism Status: Acute (4) left atrial thrombus Status: Acute (5) NSTEMI (non-ST elevated myocardial infarction) ICD Code: I21.4 - Non-ST elevation (NSTEMI) myocardial infarction Status: Resolved (6) ARF (acute renal failure) ICD Code: N17.9 - ARF (acute renal failure) Status: Acute (7) Diabetes mellitus ICD Code: E11.9 - Diabetes mellitus Status: Chronic (8) Morbid obesity ICD Code: E66.01 - Morbid (severe) obesity due to excess calories Status: Acute (9) Severe chronic obstructive pulmonary disease ICD Code: J44.9 - Chronic obstructive pulmonary disease, unspecified Status: Acute (10) CKD (chronic kidney disease) stage 4, GFR 15-29 ml/min ICD Code: N18.4 - Chronic kidney disease, stage 4 (severe) Status: Acute Assessment and Plan Mr. Mehta is a 66-year-old male with medical history significant for hypertension and diabetes and CVA who presented to the hospital with a chief complaint of shortness of breath and chest pain. The patient was diagnosed with NSTEMI. Echo was performed which was concerning for thrombus, but study was limited and a repeat was suggested. He has history of chronic kidney disease but worsening of his creatinine was noted. He was seen and evaluated by nephrology who started the patient on hemodialysis. ESRD: Pt to undergo dialysis today (01/20/17). Diabetes: Blood glucose ranged last 24 hours was 159-238. Patient received 10 units of insulin in this time period. Continue to monitor. Constipation: 2 bowel movements in the past 24 hours. Hypertension: Patient has been normotensive for the past 24 hours. CKD stage IV with GFR 15-29. Acute renal failure progressing to ESRD - nephrology on board, started on hemodialysis. - PermaCath placed. Vascular surgery unable to find adequate vein for AVF. Will await nephrology further recommendations. - Kidney biopsy on 01/03/2017 --> diffuse and nodular diabetic glomerulosclerosis, segmental and global glomerular sclerosis, interstitial fibrosis and tubular atrophy severe. S/P acute respiratory failure secondary to bilateral lower lobe pneumonias/ community acquired - Urine antigens, sputum culture, blood cultures were all negative. S/p abx treatment course with azithromycin and Rocephin - Improved - Chest x-ray 01/12 clear and labs unremarkable for acute process - Continue guaifenesin and Acapella for cough - O2 if needed to keep sats >92%. COPD - Symbicort and Spiriva - Continue albuterol neb. NSTEMI Hypertension - Echo performed December 07 showed distinct regional wall abnormalities with a possible clot in the apex. - echo with Definity contrast did not appear to show any clots in LV. - Cardiology was consulted, stable from a cardiac standpoint and recommended continued aggressive risk factor modification - ASA 81 mg daily. Coreg 6.25 mg BID. Norvasc 10 mg daily. Clonidine to 0.3 mg po TID and hydralazine 50 mg by mouth daily 8 hour Diabetes mellitus - Continue Levemir 35 units QHS and sliding scale insulin. - pre-meal insulin 8 units TIDAC - Monitor Accu-Cheks and adjust regimen as indicated -Levemir increased to 37 units on 01/16/17. BPH - continue Tamsulosin. Sore throat: Likely secondary to recent intubation. Continue Cepacol lozenge as needed. Deconditioning: PT recommends SNF, generalized weakness likely due to prolonged hospitalization and multiple medical conditions as above. - Continue PT Sunday through Sunday while admitted Heparin SQ for DVT prophylaxis. Case discussed with Pt, RN, and Dr. Man. Discharge Planning Discharge plan: Pending outpatient dialysis arrangements. Problem Qualifiers (1) Respiratory failure: Qualified Codes: J96.00 - Acute respiratory failure, unspecified whether with hypoxia or hypercapnia (2) Sepsis: (3) Pneumonia: (4) ARF (acute renal failure): (5) Diabetes mellitus: Qualified Codes: E11.22 - Type 2 diabetes mellitus with diabetic chronic kidney disease; N18.4 - Chronic kidney disease, stage 4 (severe); Z79.4 - continuous churn buttermaker (current) use of insulin [place] oRbles Jr. Jan 20, 2017 14:22
[2017-01-20 16:00] VITALS: BP 104/58; PULSE 90; RESP 18; TEMP 98.7; O2SAT 93
--- NOTE | 2017-01-20 16:45 | HHI.NPPN ---
Subjective History of Present Illness 66-year-old male with past medical history of hypertension, diabetes mellitus, history of cerebrovascular accident with left-sided weakness, hyperlipidemia, bronchial asthma, chronic kidney disease who was admitted because of shortness of breath and chest pain. I was called to see the patient because of elevated BUN and creatinine. The patient was diagnosed here with non-ST elevation [place]. The patient has history of chronic kidney disease. Additional Remarks Patient is alert, not in distress, no SOB, eating well, clinically same. Objective Data Data 01/20/17 01/21/17 19:00 07:00 Intake Total 100 ml Output Total 1500 ml Balance -1400 ml IV Total 100 ml Hemodialysis 1500 ml Vital Signs Date Time Temp Pulse Resp B/P (MAP) Pulse Ox O2 Delivery O2 Flow Rate FiO2 01/20/17 12:00 98.6 87 18 140/74 (96) 95 01/20/17 09:35 92 Nasal Cannula 3.00 01/20/17 08:00 98.6 78 18 140/73 (95) 96 01/20/17 07:00 Nasal Cannula 2.00 01/20/17 04:10 98.2 66 16 120/64 (82) 98 01/20/17 04:00 Nasal Cannula 2.00 01/20/17 00:00 Nasal Cannula 2.00 01/19/17 23:55 98.5 63 16 122/67 (85) 99 01/19/17 20:20 Nasal Cannula 2.00 01/19/17 20:12 98.8 65 16 103/62 (76) 100 -: 01/20/17 0645 Physical Exam General Appearance: No Acute Distress, Comfortable Eyes Eye Exam: Pupils Equal Throat Throat Exam: Oral Mucosa [place] & Moist Neck Neck Exam: Neck Supple Pulmonary Resp Exam: No Distress, Rhonchi, Decreased Bases, Diminished Breath Sounds Cardiology CV Exam: Regular, Normal Sinus Rhythm Gastrointestinal/Abdomen GI Exam: Soft, Non-Tender, Bowel Sounds Present Extremeties Extremities Exam: Moderate Edema Neurologic Neuro Exam: Alert, Awake Psychiatric Psych Exam: Appropriate Responses Assessment/Plan Assessment Summary: WILLIE/Acute Renal Failure, CHF, CKD Stage IV Problem List: (1) NSTEMI (non-ST elevated myocardial infarction) ICD Codes: I21.4 - Non-ST elevation (NSTEMI) myocardial infarction Status: Resolved (2) Diabetes mellitus ICD Codes: E11.9 - Diabetes mellitus Status: Chronic (3) Asthma ICD Codes: J45.909 - Asthma Status: Chronic (4) Shortness of breath ICD Codes: R06.02 - Shortness of breath Status: Acute (5) Leg edema ICD Codes: R60.0 - Leg edema Status: Acute (6) Hypertension ICD Codes: I10 - Hypertension Status: Chronic Plan Patient has been non oliguric, Creatinine is still elevated. K is normal, Follow urine out put and BMP. Has proteinuria, serology negative. Added Phoslo as Po4 is elevated and calcitriol as Calcium is low. BP is better. Follow urine out put and watch for any renal recovery. Got the PermCath , has poor flow from Vascath. The Kidney Biopsy showing Diabetic and Hypertensive renal disease. HD to continue as per schedule. Will need out patient HD arrangement also. Case management notes seen. HD to continue 3 times a week. Discussed with his son and in detail. patient has been in the bed and sleepy also at home. He will stay in [facility] and live with his son after D/C. Awaiting arrangements for HD. Problem Qualifiers (1) Diabetes mellitus: Qualified Codes: E11.22 - Type 2 diabetes mellitus with diabetic chronic kidney disease; N18.4 - Chronic kidney disease, stage 4 (severe); Z79.4 - [facility] (current) use of insulin (2) Hypertension: Qualified Codes: I10 - Essential (primary) hypertension Zoey Carbone MD Jan 20, 2017 16:45
[2017-01-20 20:00] VITALS: BP 116/65; PULSE 78; RESP 18; TEMP 99.5; O2SAT 99
[2017-01-20] MEDS: TAMSULOSIN HCL 0.4 MG CAP PO SCH (22:56)
[2017-01-20] MEDS: MORPHINE SULFATE 4 MG/ML INJ IV PUSH PRN (22:57)
[2017-01-20] MEDS: INSULIN DETEMIR 100 UNITS/ML VIAL SQ SCH (23:21)
[2017-01-21] VITALS (8 sets, daily range): BP systolic 108–133; BP diastolic 59–67; PULSE 57–70; RESP 16–20; TEMP 97.6–99.4; O2SAT 97–100
[2017-01-21] MEDS: CHLORHEXIDINE GLUCONATE 2 % 1 PACK (2 CLOTHS) TOP SCH (04:00)
[2017-01-21] MEDS: hydrALAZINE HCL 50 MG TAB PO SCH ×3 (05:49→20:59)
[2017-01-21] MEDS: INSULIN ASPART 1,000 UNITS/10 ML VIAL SQ SCH ×3 (08:00→17:00)
[2017-01-21] MEDS: CHLORHEXIDINE 0.12% (ORAL KIT) 15 ML CUP MT SCH ×2 (08:00→20:00)
[2017-01-21] MEDS: INSULIN NovoLIN REGULAR SUPPLEMENTAL SCALE SQ SCH ×4 (08:00→20:36)
[2017-01-21] MEDS: ARTIFICIAL TEARS OPTH SOLN 15 ML BTL EACH EYE SCH ×3 (09:00→17:45)
[2017-01-21] MEDS: SODIUM CHLORIDE 0.9% FLUSH 10 ML FLUSH IVF SCH (09:00)
[2017-01-21] MEDS: SODIUM CHLORIDE 0.9% FLUSH 10 ML FLUSH IV FLUSH SCH ×2 (09:00→20:59)
[2017-01-21] MEDS: ASPIRIN 81 MG CHEW TAB CHEW SCH (09:02)
[2017-01-21] MEDS: CALCITRIOL 0.25 MCG CAP PO SCH (09:02)
[2017-01-21] MEDS: DOCUSATE SODIUM 50 MG/SENNA 8.6 MG TAB PO SCH ×2 (09:02→20:59)
[2017-01-21] MEDS: guaiFENesin E.R. 600 MG TAB PO SCH ×2 (09:03→20:59)
[2017-01-21] MEDS: CALCIUM ACETATE 667 MG CAP PO SCH ×3 (09:03→17:44)
[2017-01-21] MEDS: CARVEDILOL 6.25 MG TAB PO SCH ×2 (09:03→20:59)
[2017-01-21] MEDS: cloNIDine HCL 0.3 MG TAB PO SCH ×2 (09:04→17:44)
[2017-01-21] MEDS: HEPARIN SODIUM - SQ 10,000 UNITS/ML VIAL SQ SCH ×2 (09:04→20:59)
[2017-01-21] MEDS: BUDESONIDE-FORMOTEROL 160/4.5 MCG INHALER INH SCH ×2 (09:10→20:59)
[2017-01-21] MEDS: TIOTROPIUM BROMIDE 18 MCG INH INH SCH (09:10)
--- NOTE | 2017-01-21 11:52 | HHI.NPPN ---
Subjective History of Present Illness 66-year-old male with past medical history of hypertension, diabetes mellitus, history of cerebrovascular accident with left-sided weakness, hyperlipidemia, bronchial asthma, chronic kidney disease who was admitted because of shortness of breath and chest pain. I was called to see the patient because of elevated BUN and creatinine. The patient was diagnosed here with non-ST elevation [place]. The patient has history of chronic kidney disease. Additional Remarks Patient is alert, not in distress, no SOB, eating well, lying in the bed, no complain. Objective Data Data Vital Signs Date Time Temp Pulse Resp B/P (MAP) Pulse Ox O2 Delivery O2 Flow Rate FiO2 01/21/17 08:22 98 Nasal Cannula 2.00 01/21/17 08:00 97.7 64 18 108/60 (76) 99 01/21/17 07:15 Nasal Cannula 2.00 01/21/17 04:00 Nasal Cannula 2.00 01/21/17 04:00 98.0 62 18 117/62 (80) 100 01/21/17 00:00 99.4 70 20 133/63 (86) 100 01/21/17 00:00 Nasal Cannula 2.00 01/20/17 20:00 Nasal Cannula 2.00 01/20/17 20:00 99.5 78 18 116/65 (82) 99 01/20/17 16:00 98.7 90 18 104/58 (73) 93 01/20/17 12:00 98.6 87 18 140/74 (96) 95 -: 01/20/17 0645 Physical Exam General Appearance: No Acute Distress, Comfortable Eyes Eye Exam: Pupils Equal Throat Throat Exam: Oral Mucosa [place] & Moist Neck Neck Exam: Neck Supple Pulmonary Resp Exam: No Distress, Rhonchi, Decreased Bases, Diminished Breath Sounds Cardiology CV Exam: Regular, Normal Sinus Rhythm Gastrointestinal/Abdomen GI Exam: Soft, Non-Tender, Bowel Sounds Present Extremeties Extremities Exam: Moderate Edema Neurologic Neuro Exam: Alert, Awake Psychiatric Psych Exam: Appropriate Responses Assessment/Plan Assessment Summary: WILLIE/Acute Renal Failure, CHF, CKD Stage IV Problem List: (1) NSTEMI (non-ST elevated myocardial infarction) ICD Codes: I21.4 - Non-ST elevation (NSTEMI) myocardial infarction Status: Resolved (2) Diabetes mellitus ICD Codes: E11.9 - Diabetes mellitus Status: Chronic (3) Asthma ICD Codes: J45.909 - Asthma Status: Chronic (4) Shortness of breath ICD Codes: R06.02 - Shortness of breath Status: Acute (5) Leg edema ICD Codes: R60.0 - Leg edema Status: Acute (6) Hypertension ICD Codes: I10 - Hypertension Status: Chronic Plan Patient has been non oliguric, Creatinine is still elevated. K is normal, Follow urine out put and BMP. Has proteinuria, serology negative. Added Phoslo as Po4 is elevated and calcitriol as Calcium is low. BP is better. Follow urine out put and watch for any renal recovery. Got the PermCath , has poor flow from Vascath. The Kidney Biopsy showing Diabetic and Hypertensive renal disease. HD to continue as per schedule. Will need out patient HD arrangement also. Case management notes seen. HD to continue 3 times a week. Awaiting arrangements for HD. HD again will be in AM. Problem Qualifiers (1) Diabetes mellitus: Qualified Codes: E11.22 - Type 2 diabetes mellitus with diabetic chronic kidney disease; N18.4 - Chronic kidney disease, stage 4 (severe); Z79.4 - jail (current) use of insulin (2) Hypertension: Qualified Codes: I10 - Essential (primary) hypertension Zoey Carbone MD Jan 21, 2017 11:52
[2017-01-21] MEDS ORDERED: NALOXONE HCL 0.4 MG/ML AMP IV PUSH PRN (13:00)
--- NOTE | 2017-01-21 14:52 | HHI.PR ---
Subjective Remarks Follow-up for ESRD. Patient seen and examined, Patient reported sleeping 5 hours last night and reported having good quality of sleep. Pt indicated he is eating well. Pt noted he had not had a bowel movement in 2 days. No issues/questions raised by pt. Denies any recent fever, chills, shortness of breath, ab pain, hip pain, n/v/d. Afebrile. Objective Vitals Vital Signs Date Time Temp Pulse Resp B/P (MAP) Pulse Ox O2 Delivery O2 Flow Rate FiO2 01/21/17 12:00 97.6 64 18 109/59 (76) 99 01/21/17 08:22 98 Nasal Cannula 2.00 01/21/17 08:00 97.7 64 18 108/60 (76) 99 01/21/17 07:15 Nasal Cannula 2.00 01/21/17 04:00 Nasal Cannula 2.00 01/21/17 04:00 98.0 62 18 117/62 (80) 100 01/21/17 00:00 99.4 70 20 133/63 (86) 100 01/21/17 00:00 Nasal Cannula 2.00 01/20/17 20:00 Nasal Cannula 2.00 01/20/17 20:00 99.5 78 18 116/65 (82) 99 01/20/17 16:00 98.7 90 18 104/58 (73) 93 I/O 01/20/17 01/20/17 01/20/17 01/21/17 01/21/17 01/21/17 07:00 15:00 23:00 07:00 15:00 23:00 Intake Total 200 ml 100 ml 720 ml 480 ml Output Total 0 ml 1500 ml Balance 200 ml 100 ml -780 ml 480 ml Intake Oral 200 ml 720 ml 480 ml IV Total 100 ml Output Urine Total 0 ml Hemodialysis 1500 ml # Voids 1 # Bowel Movements 0 0 1 Result Diagram: 01/20/17 0645 Imaging Last Impressions Chest X-Ray 01/12/17 0000 Signed Impressions: Service Date/Time: Thursday, January 12, 2017 11:15 - CONCLUSION: Dialysis catheter in good position. The lungs are clear. Marek Burnett MD FACR Carotid Artery Ultrasound 01/10/17 0000 Signed Impressions: Service Date/Time: Tuesday, January 10, 2017 12:25 - CONCLUSION: Negative examination for a hemodynamically significant carotid stenosis. Marek Burnett MD FACR Upper Extremity Ultrasound 01/05/17 Signed Impressions: Service Date/Time: Thursday, January 05, 2017 18:56 - CONCLUSION: Normal examination. Ji Martinez MD Renal Biopsy CT 01/03/17 Signed Impressions: Service Date/Time: Tuesday, January 03, 2017 13:28 - CONCLUSION: Uncomplicated CT guided biopsy. Ji Cedillo MD Central Venous Line 01/03/17 Signed Impressions: Service Date/Time: Tuesday, January 03, 2017 00:00 - CONCLUSION: Uncomplicated catheter removal. Filiberto Rodarte MD Catheter Placement X-Ray 01/03/17 Signed Impressions: Service Date/Time: Tuesday, January 03, 2017 14:27 - CONCLUSION: Uncomplicated PermaCath placement as above. Filiberto Rodarte MD Chest CT 12/08/16 Signed Impressions: Service Date/Time: Thursday, December 08, 2016 14:02 - CONCLUSION: 1. Bilateral lower lobe consolidating airspace disease. 2. Small to moderate bilateral pleural effusions; larger on the left. 3. Cardiomegaly. 4. Endotracheal and nasogastric tubes in good position. Tutu Christianson MD Renal Ultrasound 12/07/16 0000 Signed Impressions: Service Date/Time: November 07:54 - CONCLUSION: Unremarkable and stable bilateral renal ultrasound. No evidence of hydronephrosis. Baron Medrano MD Objective Remarks GENERAL: Pt encountered laying a bed, chronically ill appearing. NAD. Pt noted not to be wearing nasal cannula. Pt eating lunch. SKIN: Warm and dry. HEAD: Normocephalic. EYES: No scleral icterus. No injection or drainage. NECK: Supple, trachea midline. No lymphadenopathy. CARDIOVASCULAR: Regular rate and rhythm without murmurs, gallops, or rubs. RESPIRATORY: Breath sounds equal bilaterally. No accessory muscle use. GASTROINTESTINAL: Abdomen soft, non-tender, nondistended. MUSCULOSKELETAL: No cyanosis, or edema. PSYCHIATRIC: affect blunted. Pt pleasant and cooperative. Procedures Echo 12/07/2016 Mildly dilated left ventricle. Wall thickness is normal. The left ventricular systolic function is normal with an estimated ejection fraction is 45-50%. There is distinct regional wall motion abnormalities with akinetic apex and possibly clot at the apex. Consider repeating study with contrast/Definity to better asses apex The right ventriclar size is upper limits of normal. The left atrial size is moderately dilated. The right atrial size is moderately dilated. [id number] mitral valve regurgitation. There is mild tricuspid valve regurgitation. There is estimated mild pulmonary hypertension present (range 40-50 mmHg). The pulmonary valve is not well visualized. The inferior vena cava is dilated. There is less than 50% respiratory change in dimension of the inferior vena cava (abnormal). Medications and IVs Current Medications Medications (Trade) Dose Ordered Sig/Abby Route Start Time Stop Time Status Last Admin (D50w (Vial) Inj) 25 ml UNSCH PRN IV PUSH 12/07/16 00:45 (Zofran Inj) 4 mg Q6H PRN IV 12/07/16 00:45 (NS Flush) DAILY IVF 12/07/16 15:30 01/14/17 09:00 (NS Flush) UNSCH PRN IVF 12/07/16 15:30 (Peridex 0.12% Liq) 15 ml BID@08,20 MT 12/07/16 20:00 01/15/17 08:00 (Albuterol Neb) 2.5 mg Q2HR NEB PRN NEB 12/07/16 15:30 01/17/17 09:43 (NS Flush) 2 ml UNSCH PRN IV FLUSH 12/07/16 15:30 12/12/16 11:32 (NS Flush) 2 ml BID IV FLUSH 12/07/16 21:00 01/21/17 09:00 (Tylenol) 650 mg Q6H PRN PO 12/07/16 15:30 01/18/17 12:21 (Tears Naturale Opth Soln) 1 drop TID EACH EYE 12/07/16 18:00 01/21/17 12:53 Miscellaneous Information 1 Q361D XX 12/07/16 15:30 (Chlorhexidine 2% Cloth) Taper DAILY@04 TOP 12/08/16 04:00 12/04/17 03:59 01/01/17 03:31 (Chlorhexidine 2% Cloth) 3 pack UNSCH PRN TOP 12/07/16 15:30 (Milk Of Magnesia Liq) 30 ml Q12H PRN PO 12/07/16 15:30 01/18/17 15:48 (Senokot) 17.2 mg Q12H PRN PO 12/07/16 15:30 01/08/17 22:36 (Aspirin Chew) 81 mg DAILY CHEW 12/08/16 12:00 01/21/17 09:02 (Trandate Inj) 20 mg Q2H PRN IV 12/10/16 00:15 12/14/16 08:05 (Morphine Inj) 2 mg Q3H PRN IV PUSH 12/10/16 09:15 01/20/17 22:57 (Coreg) 6.25 mg Q12HR PO 12/10/16 10:00 01/21/17 09:03 (Phoslo) 1,334 mg TID PO 12/10/16 13:00 01/21/17 12:52 (Rocaltrol) 0.5 mcg DAILY PO 12/10/16 12:45 01/21/17 09:02 (Symbicort 160-4.5 Inh) 1 puff Q12HR INH 12/11/16 12:00 01/21/17 09:10 (Spiriva Inh) 18 mcg DAILY INH 12/11/16 12:00 01/21/17 09:10 (Norvasc) 10 mg DAILY PO 12/11/16 15:15 01/21/17 09:03 (Apresoline Inj) 20 mg Q4H PRN IV PUSH 12/11/16 15:15 12/18/16 04:26 (Catapres) 0.3 mg Q8H PO 12/12/16 08:00 01/21/17 09:04 Sodium Chloride 1,000 ml @ 0 mls/hr Q0M PRN IV 12/12/16 12:11 01/09/17 11:31 (Heparin Inj) 8,000 units UNSCH PRN IVF 12/12/16 12:15 01/06/17 10:58 Sodium Chloride 1,000 ml @ 200 mls/hr Q5H PRN IV 12/12/16 12:11 Sodium Chloride 1,000 ml @ 0 mls/hr Q0M PRN IV 12/12/16 12:11 12/12/16 17:04 (Mannitol Inj) 12.5 gm UNSCH PRN IV 12/12/16 12:15 (Albumin 25% Inj) 25 gm UNSCH PRN IV 12/12/16 12:15 01/20/17 13:09 (NS Flush) 5 ml UNSCH PRN IV FLUSH 12/12/16 12:15 12/26/16 10:34 (Heparin Inj) UNSCH PRN .XX 12/12/16 12:15 01/20/17 13:08 (Gentamicin (Dialysis) Inj) 20 mg UNSCH PRN IV 12/12/16 12:15 01/20/17 13:09 (Zofran Inj) 4 mg UNSCH PRN IV 12/12/16 12:15 (Tylenol) 650 mg UNSCH PRN PO 12/12/16 12:15 01/08/17 15:15 (Benadryl) 25 mg UNSCH PRN PO 12/12/16 12:15 (Nitrostat Sl) 0.4 mg UNSCH PRN SL 12/12/16 12:15 (Catapres) 0.1 mg UNSCH PRN PO 12/12/16 12:15 12/24/16 18:49 (Epogen Inj) 10,000 units UNSCH PRN IV 12/12/16 12:15 01/20/17 13:09 (Gelfoam 12 Mm/7 Mm Top) 1 foam UNSCH PRN TOP 12/12/16 12:15 (Apresoline) 50 mg Q8HR PO 12/26/16 14:00 01/21/17 12:52 (NS Flush) UNSCH PRN IVF 01/03/17 16:15 (Heparin Inj) UNSCH PRN IV FLUSH 01/03/17 16:15 (Heparin Inj) 5,000 units Q12HR SQ 01/07/17 09:00 01/21/17 09:04 (Mucinex Er) 600 mg BID PO 01/12/17 10:30 01/21/17 09:03 (Cepacol Extra Ha (Sugar Free)) 1 lozenge Q2HR PRN BUCCAL 01/13/17 13:00 (Flomax) 0.4 mg HS PO 01/14/17 21:00 01/20/17 22:56 (NovoLOG INJ) 8 units TIDAC SQ 01/15/17 12:30 01/21/17 12:00 (Levemir Inj) 37 units HS SQ 01/16/17 21:00 01/20/17 23:21 (Fleets Enema (Adult)) 133 ml UNSCH PRN RECTAL 01/18/17 18:30 01/18/17 21:45 (NovoLIN R SUPPLEMENTAL SCALE) 1 ACHS SQ 01/19/17 12:00 01/21/17 12:00 (Narcan Inj) 0.4 mg UNSCH PRN IV PUSH 01/21/17 13:00 (Dulcolax Supp) 10 mg DAILY PRN RECTAL 01/21/17 13:00 (Lactulose Liq) 30 ml DAILY PRN PO 01/21/17 13:00 (Sara-Colace) 1 tab BID PO 01/21/17 21:00 02/20/17 20:59 Urinary Catheter: No A/P Problem List: (1) Respiratory failure ICD Code: J96.90 - Respiratory failure, unspecified, unspecified whether with hypoxia or hypercapnia Status: Acute (2) Sepsis ICD Code: A41.9 - Sepsis, unspecified organism Status: Acute (3) Pneumonia ICD Code: J18.9 - Pneumonia, unspecified organism Status: Acute (4) left atrial thrombus Status: Acute (5) NSTEMI (non-ST elevated myocardial infarction) ICD Code: I21.4 - Non-ST elevation (NSTEMI) myocardial infarction Status: Resolved (6) ARF (acute renal failure) ICD Code: N17.9 - ARF (acute renal failure) Status: Acute (7) Diabetes mellitus ICD Code: E11.9 - Diabetes mellitus Status: Chronic (8) Morbid obesity ICD Code: E66.01 - Morbid (severe) obesity due to excess calories Status: Acute (9) Severe chronic obstructive pulmonary disease ICD Code: J44.9 - Chronic obstructive pulmonary disease, unspecified Status: Acute (10) CKD (chronic kidney disease) stage 4, GFR 15-29 ml/min ICD Code: N18.4 - Chronic kidney disease, stage 4 (severe) Status: Acute Assessment and Plan Mr. Mehta is a 66-year-old male with medical history significant for hypertension and diabetes and CVA who presented to the hospital with a chief complaint of shortness of breath and chest pain. The patient was diagnosed with NSTEMI. Echo was performed which was concerning for thrombus, but study was limited and a repeat was suggested. He has history of chronic kidney disease but worsening of his creatinine was noted. He was seen and evaluated by nephrology who started the patient on hemodialysis. ESRD: BMP ordered in AM; check creatinine. Diabetes: Blood glucose ranged last 24 hours was 117-206. Patient received 16 units of insulin in this time period. Continue to monitor. Constipation: Nursing record indicated 3 bowl movements over course of past 2 days. Sara-Colace increased to twice daily.as needed lactulose and Dulcolax suppository added for bowel care/constipation. Hypertension: Stable for past 48 hours. COPD: Pt using oxygen more frequently. On 2 L with oxygen saturation noted to be 99-100%. On room air, oxygen saturation 93-95%. CKD stage IV with GFR 15-29. Acute renal failure progressing to ESRD - nephrology on board, started on hemodialysis. - PermaCath placed. Vascular surgery unable to find adequate vein for AVF. Will await nephrology further recommendations. - Kidney biopsy on 01/03/2017 --> diffuse and nodular diabetic glomerulosclerosis, segmental and global glomerular sclerosis, interstitial fibrosis and tubular atrophy severe. S/P acute respiratory failure secondary to bilateral lower lobe pneumonias/ community acquired - Urine antigens, sputum culture, blood cultures were all negative. S/p abx treatment course with azithromycin and Rocephin - Improved - Chest x-ray 01/12 clear and labs unremarkable for acute process - Continue guaifenesin and Acapella for cough - O2 if needed to keep sats >92%. COPD - Symbicort and Spiriva - Continue albuterol neb. NSTEMI Hypertension - Echo performed December 07 showed distinct regional wall abnormalities with a possible clot in the apex. - echo with Definity contrast did not appear to show any clots in LV. - Cardiology was consulted, stable from a cardiac standpoint and recommended continued aggressive risk factor modification - ASA 81 mg daily. Coreg 6.25 mg BID. Norvasc 10 mg daily. Clonidine to 0.3 mg po TID and hydralazine 50 mg by mouth daily 8 hour Diabetes mellitus - Continue Levemir 35 units QHS and sliding scale insulin. - pre-meal insulin 8 units TIDAC - Monitor Accu-Cheks and adjust regimen as indicated -Levemir increased to 37 units on 01/16/17. BPH - continue Tamsulosin. Sore throat: Likely secondary to recent intubation. Continue Cepacol lozenge as needed. Deconditioning: PT recommends SNF, generalized weakness likely due to prolonged hospitalization and multiple medical conditions as above. - Continue PT Sunday through Sunday while admitted Heparin SQ for DVT prophylaxis. Case discussed with Pt, RN, and Dr. Man. Discharge Planning Discharge plan: Pending outpatient dialysis arrangements. Problem Qualifiers (1) Respiratory failure: Qualified Codes: J96.00 - Acute respiratory failure, unspecified whether with hypoxia or hypercapnia (2) Sepsis: (3) Pneumonia: (4) ARF (acute renal failure): (5) Diabetes mellitus: Qualified Codes: E11.22 - Type 2 diabetes mellitus with diabetic chronic kidney disease; N18.4 - Chronic kidney disease, stage 4 (severe); Z79.4 - [facility] (current) use of insulin Montana Robles Jr. Jan 21, 2017 14:52
[2017-01-21] MEDS: RESP: ALBUTEROL 2.5 MG/3 ML NEB (PRN) NEB (16:36)
[2017-01-21] MEDS: MORPHINE SULFATE 4 MG/ML INJ IV PUSH PRN ×2 (17:52→21:44)
[2017-01-21] MEDS: TAMSULOSIN HCL 0.4 MG CAP PO SCH (20:59)
[2017-01-21] MEDS: INSULIN DETEMIR 100 UNITS/ML VIAL SQ SCH (20:59)
[2017-01-22] VITALS (7 sets, daily range): BP systolic 105–140; BP diastolic 59–78; PULSE 54–68; RESP 15–18; TEMP 97.2–97.8; O2SAT 95–100
[2017-01-22] MEDS: cloNIDine HCL 0.3 MG TAB PO SCH ×3 (01:32→15:55)
[2017-01-22] MEDS: CHLORHEXIDINE GLUCONATE 2 % 1 PACK (2 CLOTHS) TOP SCH (03:12)
[2017-01-22] MEDS: hydrALAZINE HCL 50 MG TAB PO SCH ×3 (06:08→21:45)
[2017-01-22] MEDS: CHLORHEXIDINE 0.12% (ORAL KIT) 15 ML CUP MT SCH ×2 (08:00→20:00)
[2017-01-22] MEDS: INSULIN NovoLIN REGULAR SUPPLEMENTAL SCALE SQ SCH ×4 (08:00→21:00)
[2017-01-22] MEDS: CALCITRIOL 0.25 MCG CAP PO SCH (08:11)
[2017-01-22] MEDS: DOCUSATE SODIUM 50 MG/SENNA 8.6 MG TAB PO SCH ×2 (08:11→21:45)
[2017-01-22] MEDS: guaiFENesin E.R. 600 MG TAB PO SCH ×2 (08:11→21:45)
[2017-01-22] MEDS: HEPARIN SODIUM - SQ 10,000 UNITS/ML VIAL SQ SCH ×2 (08:11→21:45)
[2017-01-22] MEDS: CALCIUM ACETATE 667 MG CAP PO SCH ×3 (08:12→17:37)
[2017-01-22] MEDS: CARVEDILOL 6.25 MG TAB PO SCH ×2 (08:12→21:44)
[2017-01-22] MEDS: ASPIRIN 81 MG CHEW TAB CHEW SCH (08:12)
[2017-01-22] MEDS: TIOTROPIUM BROMIDE 18 MCG INH INH SCH (08:16)
[2017-01-22] MEDS: ARTIFICIAL TEARS OPTH SOLN 15 ML BTL EACH EYE SCH ×3 (08:16→17:36)
[2017-01-22] MEDS: BUDESONIDE-FORMOTEROL 160/4.5 MCG INHALER INH SCH ×2 (08:16→21:46)
[2017-01-22] MEDS: SODIUM CHLORIDE 0.9% FLUSH 10 ML FLUSH IV FLUSH SCH ×2 (08:17→21:46)
[2017-01-22] MEDS: SODIUM CHLORIDE 0.9% FLUSH 10 ML FLUSH IVF SCH (08:17)
[2017-01-22] MEDS: INSULIN ASPART 1,000 UNITS/10 ML VIAL SQ SCH ×3 (08:24→17:34)
[2017-01-22 10:03] LABS: BICARBONATE 28.2 MEQ/L (21.0-32.0); POTASSIUM 4.4 MEQ/L (3.5-5.1)
[2017-01-22] MEDS: SOD PHOSPHATE/SOD BIPHOSPHATE (ADULT) ENEMA 133ML RECTAL PRN (11:57)
--- NOTE | 2017-01-22 14:07 | HHI.PR ---
Subjective Remarks Follow-up for ESRD. Patient seen and examined, Patient reported sleeping 5 hours last night and reported having good quality of sleep. Pt reported at home he generally gets 7 hours of sleep. Pt indicated he is eating well. Pt noted he had not had a bowel movement in 3 days. No issues/questions raised by pt. Denies any recent fever, chills, shortness of breath, ab pain, hip pain,chest pain, n/v/d. Afebrile. Per RN (Cynthia) pt had a bowel movement on 01/20/17. Pt is to go to dialysis tomorrow. No acute issues noted or reported over night or since start of shift. Objective Vitals Vital Signs Date Time Temp Pulse Resp B/P (MAP) Pulse Ox O2 Delivery O2 Flow Rate FiO2 01/22/17 12:00 97.6 54 16 112/61 (78) 99 01/22/17 10:46 Room Air 01/22/17 08:38 95 Nasal Cannula 2.00 01/22/17 08:00 97.5 56 18 105/60 (75) 99 01/22/17 04:00 97.2 56 18 116/63 (80) 100 01/22/17 00:00 97.6 61 16 120/67 (84) 99 01/21/17 22:02 Nasal Cannula 2.00 01/21/17 20:05 97.8 57 16 131/67 (88) 100 01/21/17 20:01 Nasal Cannula 2.00 01/21/17 19:59 97.8 58 16 131/67 (88) 100 01/21/17 16:00 98.3 62 20 120/65 (83) 97 I/O 01/21/17 01/21/17 01/21/17 01/22/17 01/22/17 01/22/17 07:00 15:00 23:00 07:00 15:00 23:00 Intake Total 480 ml 660 ml 570 ml Balance 480 ml 660 ml 570 ml Intake Oral 480 ml 660 ml 570 ml # Voids 0 2 # Bowel Movements 1 0 0 Result Diagram: 01/20/17 0645 01/22/17 0740 Objective Remarks GENERAL: Pt encountered laying a bed, chronically ill appearing. NAD. Pt noted not to be wearing nasal cannula. SKIN: Warm and dry. HEAD: Normocephalic. EYES: No scleral icterus. No injection or drainage. NECK: Supple, trachea midline. No lymphadenopathy. CARDIOVASCULAR: Regular rate and rhythm without murmurs, gallops, or rubs. RESPIRATORY: Breath sounds equal bilaterally. No accessory muscle use. GASTROINTESTINAL: Abdomen soft, non-tender, nondistended. MUSCULOSKELETAL: No cyanosis, or edema. PSYCHIATRIC: affect blunted. Pt pleasant and cooperative. Procedures Echo 12/07/2016 Mildly dilated left ventricle. Wall thickness is normal. The left ventricular systolic function is normal with an estimated ejection fraction is 45-50%. There is distinct regional wall motion abnormalities with akinetic apex and possibly clot at the apex. Consider repeating study with contrast/Definity to better asses apex The right ventriclar size is upper limits of normal. The left atrial size is moderately dilated. The right atrial size is moderately dilated. [id number]-[id number]-[id number] mitral valve regurgitation. There is mild tricuspid valve regurgitation. There is estimated mild pulmonary hypertension present (range 40-50 mmHg). The pulmonary valve is not well visualized. The inferior vena cava is dilated. There is less than 50% respiratory change in dimension of the inferior vena cava (abnormal). Medications and IVs Current Medications Medications (Trade) Dose Ordered Sig/Abby Route Start Time Stop Time Status Last Admin (D50w (Vial) Inj) 25 ml UNSCH PRN IV PUSH 12/07/16 00:45 (Zofran Inj) 4 mg Q6H PRN IV 12/07/16 00:45 (NS Flush) DAILY IVF 12/07/16 15:30 01/14/17 09:00 (NS Flush) UNSCH PRN IVF 12/07/16 15:30 (Peridex 0.12% Liq) 15 ml BID@08,20 MT 12/07/16 20:00 01/15/17 08:00 (Albuterol Neb) 2.5 mg Q2HR NEB PRN NEB 12/07/16 15:30 01/21/17 16:36 (NS Flush) 2 ml UNSCH PRN IV FLUSH 12/07/16 15:30 12/12/16 11:32 (NS Flush) 2 ml BID IV FLUSH 12/07/16 21:00 01/22/17 08:17 (Tylenol) 650 mg Q6H PRN PO 12/07/16 15:30 01/18/17 12:21 (Tears Naturale Opth Soln) 1 drop TID EACH EYE 12/07/16 18:00 01/22/17 12:21 Miscellaneous Information 1 Q361D XX 12/07/16 15:30 (Chlorhexidine 2% Cloth) Taper DAILY@04 TOP 12/08/16 04:00 12/04/17 03:59 01/01/17 03:31 (Chlorhexidine 2% Cloth) 3 pack UNSCH PRN TOP 12/07/16 15:30 (Milk Of Juanpablo Liq) 30 ml Q12H PRN PO 12/07/16 15:30 01/18/17 15:48 (Senokot) 17.2 mg Q12H PRN PO 12/07/16 15:30 01/08/17 22:36 (Aspirin Chew) 81 mg DAILY CHEW 12/08/16 12:00 01/22/17 08:12 (Trandate Inj) 20 mg Q2H PRN IV 12/10/16 00:15 12/14/16 08:05 (Morphine Inj) 2 mg Q3H PRN IV PUSH 12/10/16 09:15 01/21/17 21:44 (Coreg) 6.25 mg Q12HR PO 12/10/16 10:00 01/22/17 08:12 (Phoslo) 1,334 mg TID PO 12/10/16 13:00 01/22/17 13:02 (Rocaltrol) 0.5 mcg DAILY PO 12/10/16 12:45 01/22/17 08:11 (Symbicort 160-4.5 Inh) 1 puff Q12HR INH 12/11/16 12:00 01/22/17 08:16 (Spiriva Inh) 18 mcg DAILY INH 12/11/16 12:00 01/22/17 08:16 (Norvasc) 10 mg DAILY PO 12/11/16 15:15 01/22/17 08:11 (Apresoline Inj) 20 mg Q4H PRN IV PUSH 12/11/16 15:15 12/18/16 04:26 (Catapres) 0.3 mg Q8H PO 12/12/16 08:00 01/22/17 08:12 Sodium Chloride 1,000 ml @ 0 mls/hr Q0M PRN IV 12/12/16 12:11 01/09/17 11:31 (Heparin Inj) 8,000 units UNSCH PRN IVF 12/12/16 12:15 01/06/17 10:58 Sodium Chloride 1,000 ml @ 200 mls/hr Q5H PRN IV 12/12/16 12:11 Sodium Chloride 1,000 ml @ 0 mls/hr Q0M PRN IV 12/12/16 12:11 12/12/16 17:04 (Mannitol Inj) 12.5 gm UNSCH PRN IV 12/12/16 12:15 (Albumin 25% Inj) 25 gm UNSCH PRN IV 12/12/16 12:15 01/20/17 13:09 (NS Flush) 5 ml UNSCH PRN IV FLUSH 12/12/16 12:15 12/26/16 10:34 (Heparin Inj) UNSCH PRN .XX 12/12/16 12:15 01/20/17 13:08 (Gentamicin (Dialysis) Inj) 20 mg UNSCH PRN IV 12/12/16 12:15 01/20/17 13:09 (Zofran Inj) 4 mg UNSCH PRN IV 12/12/16 12:15 (Tylenol) 650 mg UNSCH PRN PO 12/12/16 12:15 01/08/17 15:15 (Benadryl) 25 mg UNSCH PRN PO 12/12/16 12:15 (Nitrostat Sl) 0.4 mg UNSCH PRN SL 12/12/16 12:15 (Catapres) 0.1 mg UNSCH PRN PO 12/12/16 12:15 12/24/16 18:49 (Epogen Inj) 10,000 units UNSCH PRN IV 12/12/16 12:15 01/20/17 13:09 (Gelfoam 12 Mm/7 Mm Top) 1 foam UNSCH PRN TOP 12/12/16 12:15 (Apresoline) 50 mg Q8HR PO 12/26/16 14:00 01/22/17 06:08 (NS Flush) UNSCH PRN IVF 01/03/17 16:15 (Heparin Inj) UNSCH PRN IV FLUSH 01/03/17 16:15 (Heparin Inj) 5,000 units Q12HR SQ 01/07/17 09:00 01/22/17 08:11 (Mucinex Er) 600 mg BID PO 01/12/17 10:30 01/22/17 08:11 (Cepacol Extra Ha (Sugar Free)) 1 lozenge Q2HR PRN BUCCAL 01/13/17 13:00 (Flomax) 0.4 mg HS PO 01/14/17 21:00 01/21/17 20:59 (NovoLOG INJ) 8 units TIDAC SQ 01/15/17 12:30 01/22/17 12:25 (Levemir Inj) 37 units HS SQ 01/16/17 21:00 01/21/17 20:59 (Fleets Enema (Adult)) 133 ml UNSCH PRN RECTAL 01/18/17 18:30 01/22/17 11:57 (NovoLIN R SUPPLEMENTAL SCALE) 1 ACHS SQ 01/19/17 12:00 01/21/17 12:00 (Narcan Inj) 0.4 mg UNSCH PRN IV PUSH 01/21/17 13:00 (Dulcolax Supp) 10 mg DAILY PRN RECTAL 01/21/17 13:00 (Lactulose Liq) 30 ml DAILY PRN PO 01/21/17 13:00 (Sara-Colace) 1 tab BID PO 01/21/17 21:00 02/20/17 20:59 01/22/17 08:11 Urinary Catheter: No A/P Problem List: (1) Respiratory failure ICD Code: J96.90 - Respiratory failure, unspecified, unspecified whether with hypoxia or hypercapnia Status: Acute (2) Sepsis ICD Code: A41.9 - Sepsis, unspecified organism Status: Acute (3) Pneumonia ICD Code: J18.9 - Pneumonia, unspecified organism Status: Acute (4) left atrial thrombus Status: Acute (5) NSTEMI (non-ST elevated myocardial infarction) ICD Code: I21.4 - Non-ST elevation (NSTEMI) myocardial infarction Status: Resolved (6) ARF (acute renal failure) ICD Code: N17.9 - ARF (acute renal failure) Status: Acute (7) Diabetes mellitus ICD Code: E11.9 - Diabetes mellitus Status: Chronic (8) Morbid obesity ICD Code: E66.01 - Morbid (severe) obesity due to excess calories Status: Acute (9) Severe chronic obstructive pulmonary disease ICD Code: J44.9 - Chronic obstructive pulmonary disease, unspecified Status: Acute (10) CKD (chronic kidney disease) stage 4, GFR 15-29 ml/min ICD Code: N18.4 - Chronic kidney disease, stage 4 (severe) Status: Acute Assessment and Plan Mr. Mehta is a 66-year-old male with medical history significant for hypertension and diabetes and CVA who presented to the hospital with a chief complaint of shortness of breath and chest pain. The patient was diagnosed with NSTEMI. Echo was performed which was concerning for thrombus, but study was limited and a repeat was suggested. He has history of chronic kidney disease but worsening of his creatinine was noted. He was seen and evaluated by nephrology who started the patient on hemodialysis. ESRD: Creatine 7.3, estimated GFR 8. Diabetes: Blood glucose ranged last 24 hours was 146-191. Patient received 2 units of insulin in this time period. Continue to monitor. Constipation: Nursing record indicated 3 bowl movements over course of past 2 days. Sara-Colace increased to twice daily.as needed lactulose and Dulcolax suppository added for bowel care/constipation. Nursing to give MOM this morning. Hypertension: Stable for past 48 hours. COPD: Pt continuing to use nasal cannula. On 2 L with oxygen saturation noted to be 95%. On room air, oxygen saturation 99-100%. Pt continues with Symbicort 1 puff BID and Spiriva daily. CKD stage IV with GFR 15-29. Acute renal failure progressing to ESRD - nephrology on board, started on hemodialysis. - PermaCath placed. Vascular surgery unable to find adequate vein for AVF. Will await nephrology further recommendations. - Kidney biopsy on 01/03/2017 --> diffuse and nodular diabetic glomerulosclerosis, segmental and global glomerular sclerosis, interstitial fibrosis and tubular atrophy severe. S/P acute respiratory failure secondary to bilateral lower lobe pneumonias/ community acquired - Urine antigens, sputum culture, blood cultures were all negative. S/p abx treatment course with azithromycin and Rocephin - Improved - Chest x-ray 01/12 clear and labs unremarkable for acute process - Continue guaifenesin and Acapella for cough - O2 if needed to keep sats >92%. COPD - Symbicort and Spiriva - Continue albuterol neb. NSTEMI Hypertension - Echo performed December 07 showed distinct regional wall abnormalities with a possible clot in the apex. - echo with Definity contrast did not appear to show any clots in LV. - Cardiology was consulted, stable from a cardiac standpoint and recommended continued aggressive risk factor modification - ASA 81 mg daily. Coreg 6.25 mg BID. Norvasc 10 mg daily. Clonidine to 0.3 mg po TID and hydralazine 50 mg by mouth daily 8 hour Diabetes mellitus - Continue Levemir 35 units QHS and sliding scale insulin. - pre-meal insulin 8 units TIDAC - Monitor Accu-Cheks and adjust regimen as indicated -Levemir increased to 37 units on 01/16/17. BPH - continue Tamsulosin. Sore throat: Likely secondary to recent intubation. Continue Cepacol lozenge as needed. Deconditioning: PT recommends SNF, generalized weakness likely due to prolonged hospitalization and multiple medical conditions as above. - Continue PT Sunday through Sunday while admitted Heparin SQ for DVT prophylaxis. Case discussed with Pt, RN, and Dr. Man. Discharge Planning Discharge plan: Pending outpatient dialysis arrangements. Problem Qualifiers (1) Respiratory failure: Qualified Codes: J96.00 - Acute respiratory failure, unspecified whether with hypoxia or hypercapnia (2) Sepsis: (3) Pneumonia: (4) ARF (acute renal failure): (5) Diabetes mellitus: Qualified Codes: E11.22 - Type 2 diabetes mellitus with diabetic chronic kidney disease; N18.4 - Chronic kidney disease, stage 4 (severe); Z79.4 - [facility] (current) use of insulin Montana Robles Jr. Jan 22, 2017 14:07
[2017-01-22] MEDS: BISACODYL 10 MG SUPP RECTAL PRN (15:56)
--- NOTE | 2017-01-22 16:56 | HHI.NPPN ---
Subjective History of Present Illness 66-year-old male with past medical history of hypertension, diabetes mellitus, history of cerebrovascular accident with left-sided weakness, hyperlipidemia, bronchial asthma, chronic kidney disease who was admitted because of shortness of breath and chest pain. I was called to see the patient because of elevated BUN and creatinine. The patient was diagnosed here with non-ST elevation [place]. The patient has history of chronic kidney disease. Additional Remarks Patient is alert, not eating well, not in distress. Objective Data Data Vital Signs Date Time Temp Pulse Resp B/P (MAP) Pulse Ox O2 Delivery O2 Flow Rate FiO2 01/22/17 12:00 97.6 54 16 112/61 (78) 99 01/22/17 10:46 Room Air 01/22/17 08:38 95 Nasal Cannula 2.00 01/22/17 08:00 97.5 56 18 105/60 (75) 99 01/22/17 04:00 97.2 56 18 116/63 (80) 100 01/22/17 00:00 97.6 61 16 120/67 (84) 99 01/21/17 22:02 Nasal Cannula 2.00 01/21/17 20:05 97.8 57 16 131/67 (88) 100 01/21/17 20:01 Nasal Cannula 2.00 01/21/17 19:59 97.8 58 16 131/67 (88) 100 -: 01/20/17 0645 01/22/17 0740 Physical Exam General Appearance: No Acute Distress, Comfortable Eyes Eye Exam: Pupils Equal Throat Throat Exam: Oral Mucosa [place] & Moist Neck Neck Exam: Neck Supple Pulmonary Resp Exam: No Distress, Rhonchi, Decreased Bases, Diminished Breath Sounds Cardiology CV Exam: Regular, Normal Sinus Rhythm Gastrointestinal/Abdomen GI Exam: Soft, Non-Tender, Bowel Sounds Present Extremeties Extremities Exam: Moderate Edema Neurologic Neuro Exam: Alert, Awake Psychiatric Psych Exam: Appropriate Responses Assessment/Plan Assessment Summary: WILLIE/Acute Renal Failure, CHF, CKD Stage IV Problem List: (1) NSTEMI (non-ST elevated myocardial infarction) ICD Codes: I21.4 - Non-ST elevation (NSTEMI) myocardial infarction Status: Resolved (2) Diabetes mellitus ICD Codes: E11.9 - Diabetes mellitus Status: Chronic (3) Asthma ICD Codes: J45.909 - Asthma Status: Chronic (4) Shortness of breath ICD Codes: R06.02 - Shortness of breath Status: Acute (5) Leg edema ICD Codes: R60.0 - Leg edema Status: Acute (6) Hypertension ICD Codes: I10 - Hypertension Status: Chronic Plan Patient has been non oliguric, Creatinine is still elevated. K is normal, Follow urine out put and BMP. Has proteinuria, serology negative. Added Phoslo as Po4 is elevated and calcitriol as Calcium is low. BP is better. Follow urine out put and watch for any renal recovery. Got the PermCath , has poor flow from Vascath. The Kidney Biopsy showing Diabetic and Hypertensive renal disease. HD to continue as per schedule. Will need out patient HD arrangement also. Case management notes seen. HD to continue 3 times a week. Awaiting arrangements for HD. Problem Qualifiers (1) Diabetes mellitus: Qualified Codes: E11.22 - Type 2 diabetes mellitus with diabetic chronic kidney disease; N18.4 - Chronic kidney disease, stage 4 (severe); Z79.4 - [facility] (current) use of insulin (2) Hypertension: Qualified Codes: I10 - Essential (primary) hypertension Zoey Carbone MD Jan 22, 2017 16:56
[2017-01-22] MEDS: INSULIN DETEMIR 100 UNITS/ML VIAL SQ SCH (21:45)
[2017-01-22] MEDS: TAMSULOSIN HCL 0.4 MG CAP PO SCH (21:45)
[2017-01-23] VITALS (7 sets, daily range): BP systolic 109–145; BP diastolic 62–68; PULSE 61–80; RESP 16–20; TEMP 97.5–98.4; O2SAT 93–99
[2017-01-23] MEDS: cloNIDine HCL 0.3 MG TAB PO SCH ×3 (00:33→16:18)
[2017-01-23] MEDS: CHLORHEXIDINE GLUCONATE 2 % 1 PACK (2 CLOTHS) TOP SCH (04:00)
[2017-01-23] MEDS: hydrALAZINE HCL 50 MG TAB PO SCH ×3 (05:14→21:50)
[2017-01-23] MEDS: CHLORHEXIDINE 0.12% (ORAL KIT) 15 ML CUP MT SCH ×2 (08:00→20:00)
[2017-01-23] MEDS: INSULIN ASPART 1,000 UNITS/10 ML VIAL SQ SCH ×3 (08:00→16:26)
[2017-01-23] MEDS: INSULIN NovoLIN REGULAR SUPPLEMENTAL SCALE SQ SCH ×4 (08:00→21:00)
[2017-01-23] MEDS: ALBUMIN HUMAN 25% 25 GM/100 ML BAGP IV PRN (08:23)
[2017-01-23] MEDS: GENTAMICIN SULFATE (DIALYSIS USE ONLY) 20 MG/2 ML VIAL IV PRN (08:24)
[2017-01-23] MEDS: EPOETIN ALFA 10,000 UNITS/ML VIAL IV PRN (08:24)
[2017-01-23] MEDS: HEPARIN SODIUM - IV 10,000 UNITS/10 ML VIAL PRN (08:24)
[2017-01-23] MEDS: ARTIFICIAL TEARS OPTH SOLN 15 ML BTL EACH EYE SCH ×3 (09:00→16:18)
[2017-01-23] MEDS: SODIUM CHLORIDE 0.9% FLUSH 10 ML FLUSH IV FLUSH SCH ×2 (09:00→21:50)
[2017-01-23] MEDS: TIOTROPIUM BROMIDE 18 MCG INH INH SCH (09:00)
[2017-01-23] MEDS: BUDESONIDE-FORMOTEROL 160/4.5 MCG INHALER INH SCH ×2 (09:00→21:00)
[2017-01-23] MEDS: DOCUSATE SODIUM 50 MG/SENNA 8.6 MG TAB PO SCH ×2 (09:00→21:50)
[2017-01-23] MEDS: SODIUM CHLORIDE 0.9% FLUSH 10 ML FLUSH IVF SCH (09:00)
[2017-01-23] MEDS: guaiFENesin E.R. 600 MG TAB PO SCH ×2 (12:52→21:50)
[2017-01-23] MEDS: HEPARIN SODIUM - SQ 10,000 UNITS/ML VIAL SQ SCH ×2 (12:52→21:48)
[2017-01-23] MEDS: CALCITRIOL 0.25 MCG CAP PO SCH (12:52)
[2017-01-23] MEDS: CALCIUM ACETATE 667 MG CAP PO SCH ×3 (12:52→16:18)
[2017-01-23] MEDS: CARVEDILOL 6.25 MG TAB PO SCH ×2 (12:52→21:50)
[2017-01-23] MEDS: ASPIRIN 81 MG CHEW TAB CHEW SCH (12:53)
[2017-01-23] MEDS ORDERED: POLYETHYLENE GLYCOL 17 GM PKG PO ONE (13:45)
--- NOTE | 2017-01-23 13:46 | HHI.PR ---
Subjective Remarks Follow-up on patient with ESRD. Patient seen and examined. Patient has just returned from hemodialysis. Patient denies any complaints. Denies any fever or chills. Denies any chest pain or shortness of breath. Denies any nausea, vomiting abdominal pain. Discussed with nursing staff, no acute issues noted. Objective Vitals Vital Signs Date Time Temp Pulse Resp B/P (MAP) Pulse Ox O2 Delivery O2 Flow Rate FiO2 01/23/17 12:12 98.1 80 18 145/64 (91) 97 01/23/17 08:14 98.2 61 18 128/65 (86) 94 01/23/17 04:00 97.5 65 16 112/68 (83) 99 01/23/17 00:00 97.6 68 16 133/64 (87) 93 01/22/17 22:00 97.7 68 15 140/78 (98) 100 01/22/17 21:45 Nasal Cannula 2.00 01/22/17 17:52 Nasal Cannula 2.00 01/22/17 16:00 97.8 57 16 117/59 (78) 97 I/O 01/22/17 01/22/17 01/22/17 01/23/17 01/23/17 01/23/17 07:00 15:00 23:00 07:00 15:00 23:00 Intake Total 570 ml 900 ml 360 ml 100 ml Output Total 1000 ml Balance 570 ml 900 ml 360 ml -900 ml Intake Oral 570 ml 900 ml 360 ml IV Total 100 ml Hemodialysis 1000 ml # Voids 2 3 1 # Bowel Movements 0 0 Result Diagram: 01/20/17 0645 01/22/17 0740 Imaging Last Impressions Chest X-Ray 01/12/17 0000 Signed Impressions: Service Date/Time: Thursday, January 12, 2017 11:15 - CONCLUSION: Dialysis catheter in good position. The lungs are clear. Marek Burnett MD FACR Carotid Artery Ultrasound 01/10/17 0000 Signed Impressions: Service Date/Time: Tuesday, January 10, 2017 12:25 - CONCLUSION: Negative examination for a hemodynamically significant carotid stenosis. Marek Burnett MD FACR Upper Extremity Ultrasound 01/05/17 0000 Signed Impressions: Service Date/Time: Thursday, January 05, 2017 18:56 - CONCLUSION: Normal examination. Ji Martinez MD Renal Biopsy CT 01/03/17 Signed Impressions: Service Date/Time: Tuesday, January 03, 2017 13:28 - CONCLUSION: Uncomplicated CT guided biopsy. Ji Cedillo MD Central Venous Line 01/03/17 Signed Impressions: Service Date/Time: Tuesday, January 03, 2017 00:00 - CONCLUSION: Uncomplicated catheter removal. Filiberto Rodarte MD Catheter Placement X-Ray 01/03/17 Signed Impressions: Service Date/Time: Tuesday, January 03, 2017 14:27 - CONCLUSION: Uncomplicated PermaCath placement as above. Filiberto Rodarte MD Chest CT 12/08/16 0000 Signed Impressions: Service Date/Time: Thursday, December 08, 2016 14:02 - CONCLUSION: 1. Bilateral lower lobe consolidating airspace disease. 2. Small to moderate bilateral pleural effusions; larger on the left. 3. Cardiomegaly. 4. Endotracheal and nasogastric tubes in good position. Tutu Christianson MD Renal Ultrasound 12/07/16 0000 Signed Impressions: Service Date/Time: November 07:54 - CONCLUSION: Unremarkable and stable bilateral renal ultrasound. No evidence of hydronephrosis. Baron Medrano MD Objective Remarks GENERAL: chronically ill appearing patient in NAD. Awake and alert. Appears comfortable. SKIN: Warm and dry. HEAD: Normocephalic. Atraumatic. EYES: EOMI. No scleral icterus. No injection or drainage. ENT: No nasal bleeding or discharge. Mucous membranes pink and moist. NECK: Supple. Trachea midline. CARDIOVASCULAR: Regular rate and rhythm. S1, S2 noted. No murmur appreciated. RESPIRATORY: No accessory muscle use. Clear to auscultation. Breath sounds equal bilaterally. GASTROINTESTINAL: Abdomen soft, non-tender, nondistended. Normoactive bowel sounds x4. MUSCULOSKELETAL: No obvious deformities. Extremities without clubbing, cyanosis , or edema. NEUROLOGICAL: Awake and alert. Able to move all extremities. Normal speech. Procedures Echo 12/07/2016 Mildly dilated left ventricle. Wall thickness is normal. The left ventricular systolic function is normal with an estimated ejection fraction is 45-50%. There is distinct regional wall motion abnormalities with akinetic apex and possibly clot at the apex. Consider repeating study with contrast/Definity to better asses apex The right ventriclar size is upper limits of normal. The left atrial size is moderately dilated. The right atrial size is moderately dilated. [id number] mitral valve regurgitation. There is mild tricuspid valve regurgitation. There is estimated mild pulmonary hypertension present (range 40-50 mmHg). The pulmonary valve is not well visualized. The inferior vena cava is dilated. There is less than 50% respiratory change in dimension of the inferior vena cava (abnormal). Medications and IVs Current Medications Medications (Trade) Dose Ordered Sig/Abby Route Start Time Stop Time Status Last Admin (D50w (Vial) Inj) 25 ml UNSCH PRN IV PUSH 12/07/16 00:45 (Zofran Inj) 4 mg Q6H PRN IV 12/07/16 00:45 (NS Flush) DAILY IVF 12/07/16 15:30 01/23/17 09:00 (NS Flush) UNSCH PRN IVF 12/07/16 15:30 (Peridex 0.12% Liq) 15 ml BID@08,20 MT 12/07/16 20:00 01/23/17 08:00 (Albuterol Neb) 2.5 mg Q2HR NEB PRN NEB 12/07/16 15:30 01/21/17 16:36 (NS Flush) 2 ml UNSCH PRN IV FLUSH 12/07/16 15:30 12/12/16 11:32 (NS Flush) 2 ml BID IV FLUSH 12/07/16 21:00 01/23/17 09:00 (Tylenol) 650 mg Q6H PRN PO 12/07/16 15:30 01/18/17 12:21 (Tears Naturale Opth Soln) 1 drop TID EACH EYE 12/07/16 18:00 01/23/17 09:00 Miscellaneous Information 1 Q361D XX 12/07/16 15:30 (Chlorhexidine 2% Cloth) Taper DAILY@04 TOP 12/08/16 04:00 12/04/17 03:59 01/01/17 03:31 (Chlorhexidine 2% Cloth) 3 pack UNSCH PRN TOP 12/07/16 15:30 (Milk Of Magnesia Liq) 30 ml Q12H PRN PO 12/07/16 15:30 01/18/17 15:48 (Senokot) 17.2 mg Q12H PRN PO 12/07/16 15:30 01/08/17 22:36 (Aspirin Chew) 81 mg DAILY CHEW 12/08/16 12:00 01/23/17 12:53 (Trandate Inj) 20 mg Q2H PRN IV 12/10/16 00:15 12/14/16 08:05 (Morphine Inj) 2 mg Q3H PRN IV PUSH 12/10/16 09:15 01/21/17 21:44 (Coreg) 6.25 mg Q12HR PO 12/10/16 10:00 01/23/17 12:52 (Phoslo) 1,334 mg TID PO 12/10/16 13:00 01/23/17 12:52 (Rocaltrol) 0.5 mcg DAILY PO 12/10/16 12:45 01/23/17 12:52 (Symbicort 160-4.5 Inh) 1 puff Q12HR INH 12/11/16 12:00 01/23/17 09:00 (Spiriva Inh) 18 mcg DAILY INH 12/11/16 12:00 01/23/17 09:00 (Norvasc) 10 mg DAILY PO 12/11/16 15:15 01/23/17 12:53 (Apresoline Inj) 20 mg Q4H PRN IV PUSH 12/11/16 15:15 12/18/16 04:26 (Catapres) 0.3 mg Q8H PO 12/12/16 08:00 01/23/17 12:59 Sodium Chloride 1,000 ml @ 0 mls/hr Q0M PRN IV 12/12/16 12:11 01/09/17 11:31 (Heparin Inj) 8,000 units UNSCH PRN IVF 12/12/16 12:15 01/06/17 10:58 Sodium Chloride 1,000 ml @ 200 mls/hr Q5H PRN IV 12/12/16 12:11 Sodium Chloride 1,000 ml @ 0 mls/hr Q0M PRN IV 12/12/16 12:11 12/12/16 17:04 (Mannitol Inj) 12.5 gm UNSCH PRN IV 12/12/16 12:15 (Albumin 25% Inj) 25 gm UNSCH PRN IV 12/12/16 12:15 01/23/17 08:23 (NS Flush) 5 ml UNSCH PRN IV FLUSH 12/12/16 12:15 12/26/16 10:34 (Heparin Inj) UNSCH PRN .XX 12/12/16 12:15 01/23/17 08:24 (Gentamicin (Dialysis) Inj) 20 mg UNSCH PRN IV 12/12/16 12:15 01/23/17 08:24 (Zofran Inj) 4 mg UNSCH PRN IV 12/12/16 12:15 (Tylenol) 650 mg UNSCH PRN PO 12/12/16 12:15 01/08/17 15:15 (Benadryl) 25 mg UNSCH PRN PO 12/12/16 12:15 (Nitrostat Sl) 0.4 mg UNSCH PRN SL 12/12/16 12:15 (Catapres) 0.1 mg UNSCH PRN PO 12/12/16 12:15 12/24/16 18:49 (Epogen Inj) 10,000 units UNSCH PRN IV 12/12/16 12:15 01/23/17 08:24 (Gelfoam 12 Mm/7 Mm Top) 1 foam UNSCH PRN TOP 12/12/16 12:15 (Apresoline) 50 mg Q8HR PO 12/26/16 14:00 01/23/17 12:53 (NS Flush) UNSCH PRN IVF 01/03/17 16:15 (Heparin Inj) UNSCH PRN IV FLUSH 01/03/17 16:15 (Heparin Inj) 5,000 units Q12HR SQ 01/07/17 09:00 01/23/17 12:52 (Mucinex Er) 600 mg BID PO 01/12/17 10:30 01/23/17 12:52 (Cepacol Extra Ha (Sugar Free)) 1 lozenge Q2HR PRN BUCCAL 01/13/17 13:00 (Flomax) 0.4 mg HS PO 01/14/17 21:00 01/22/17 21:45 (NovoLOG INJ) 8 units TIDAC SQ 01/15/17 12:30 01/23/17 12:58 (Levemir Inj) 37 units HS SQ 01/16/17 21:00 01/22/17 21:45 (Fleets Enema (Adult)) 133 ml UNSCH PRN RECTAL 01/18/17 18:30 01/22/17 11:57 (NovoLIN R SUPPLEMENTAL SCALE) 1 ACHS SQ 01/19/17 12:00 01/22/17 17:34 (Narcan Inj) 0.4 mg UNSCH PRN IV PUSH 01/21/17 13:00 (Dulcolax Supp) 10 mg DAILY PRN RECTAL 01/21/17 13:00 01/22/17 15:56 (Lactulose Liq) 30 ml DAILY PRN PO 01/21/17 13:00 (Sara-Colace) 1 tab BID PO 01/21/17 21:00 02/20/17 20:59 01/23/17 09:00 A/P Problem List: (1) Respiratory failure ICD Code: J96.90 - Respiratory failure, unspecified, unspecified whether with hypoxia or hypercapnia Status: Acute (2) Sepsis ICD Code: A41.9 - Sepsis, unspecified organism Status: Acute (3) Pneumonia ICD Code: J18.9 - Pneumonia, unspecified organism Status: Acute (4) left atrial thrombus Status: Acute (5) NSTEMI (non-ST elevated myocardial infarction) ICD Code: I21.4 - Non-ST elevation (NSTEMI) myocardial infarction Status: Resolved (6) ARF (acute renal failure) ICD Code: N17.9 - ARF (acute renal failure) Status: Acute (7) Diabetes mellitus ICD Code: E11.9 - Diabetes mellitus Status: Chronic (8) Morbid obesity ICD Code: E66.01 - Morbid (severe) obesity due to excess calories Status: Acute (9) Severe chronic obstructive pulmonary disease ICD Code: J44.9 - Chronic obstructive pulmonary disease, unspecified Status: Acute (10) CKD (chronic kidney disease) stage 4, GFR 15-29 ml/min ICD Code: N18.4 - Chronic kidney disease, stage 4 (severe) Status: Acute Assessment and Plan Mr. Mehta is a 66-year-old male with medical history significant for hypertension and diabetes and CVA who presented to the hospital with a chief complaint of shortness of breath and chest pain. The patient was diagnosed with NSTEMI. Echo was performed which was concerning for thrombus, but study was limited and a repeat was suggested. He has history of chronic kidney disease but worsening of his creatinine was noted. He was seen and evaluated by nephrology who started the patient on hemodialysis. CKD stage IV with GFR 8 Acute renal failure progressing to ESRD - nephrology on board, started on hemodialysis TTHSa - PermaCath placed. Vascular surgery unable to find adequate vein for AVF. Will await nephrology further recommendations. - Kidney biopsy on 01/03/2017 --> diffuse and nodular diabetic glomerulosclerosis, segmental and global glomerular sclerosis, interstitial fibrosis and tubular atrophy severe. - follow UO - monitor BMP, am labs ordered S/P acute respiratory failure secondary to bilateral lower lobe pneumonias/ community acquired - resolved - Urine antigens, sputum culture, blood cultures were all negative. S/p abx treatment course with azithromycin and Rocephin. - Chest x-ray 01/12 clear and labs unremarkable for acute process - Continue guaifenesin and Acapella for cough - O2 if needed to keep sats >92%. - monitor respiratory status Hypercalcemia - Hold calcitriol - repeat in am COPD - Continue Symbicort and Spiriva - Continue albuterol neb. NSTEMI Hypertension - Echo performed December 07 showed distinct regional wall abnormalities with a possible clot in the apex. - echo with Definity contrast did not appear to show any clots in LV. - Cardiology was consulted, stable from a cardiac standpoint and recommended continued aggressive risk factor modification - ASA 81 mg daily. Coreg 6.25 mg BID. Norvasc 10 mg daily. Clonidine to 0.3 mg po TID and hydralazine 50 mg by mouth daily 8 hour Diabetes mellitus - BS 106 this am - Continue Levemir 37 units QHS and sliding scale insulin. - pre-meal insulin 8 units TIDAC - Monitor Accu-Cheks and adjust regimen as indicated BPH - continue Tamsulosin. Deconditioning: PT recommends SNF, generalized weakness likely due to prolonged hospitalization and multiple medical conditions as above. - Continue PT Sunday through Sunday while admitted Constipation - Pericolace BID - add Miralax daily - monitor for BM Heparin SQ for DVT prophylaxis. Case discussed with Pt, RN, and Dr. Man. Problem Qualifiers (1) Respiratory failure: Qualified Codes: J96.00 - Acute respiratory failure, unspecified whether with hypoxia or hypercapnia (2) Sepsis: (3) Pneumonia: (4) ARF (acute renal failure): (5) Diabetes mellitus: Qualified Codes: E11.22 - Type 2 diabetes mellitus with diabetic chronic kidney disease; N18.4 - Chronic kidney disease, stage 4 (severe); Z79.4 - [employer] (current) use of insulin Alaina Stiles Jan 23, 2017 13:46
[2017-01-23] MEDS: TAMSULOSIN HCL 0.4 MG CAP PO SCH (21:48)
[2017-01-23] MEDS: INSULIN DETEMIR 100 UNITS/ML VIAL SQ SCH (21:51)
[2017-01-23] MEDS: MORPHINE SULFATE 4 MG/ML INJ IV PUSH PRN (21:53)
--- NOTE | 2017-01-23 22:16 | HHI.NPPN ---
Subjective History of Present Illness 66-year-old male with past medical history of hypertension, diabetes mellitus, history of cerebrovascular accident with left-sided weakness, hyperlipidemia, bronchial asthma, chronic kidney disease who was admitted because of shortness of breath and chest pain. I was called to see the patient because of elevated BUN and creatinine. The patient was diagnosed here with non-ST elevation [place]. The patient has history of chronic kidney disease. Additional Remarks Patient is alert, not in distress, no SOB, no complain. Objective Data Data 01/23/17 01/24/17 19:00 07:00 Intake Total 460 ml Output Total 1001 ml Balance -541 ml Intake Oral 360 ml IV Total 100 ml Output Urine Total 1 ml Hemodialysis 1000 ml # Bowel Movements 0 Vital Signs Date Time Temp Pulse Resp B/P (MAP) Pulse Ox O2 Delivery O2 Flow Rate FiO2 01/23/17 20:28 98.4 74 18 142/63 (89) 97 01/23/17 17:10 99 Nasal Cannula 2.00 01/23/17 16:26 98.0 67 20 109/62 (78) 99 01/23/17 12:12 98.1 80 18 145/64 (91) 97 01/23/17 08:14 98.2 61 18 128/65 (86) 94 01/23/17 04:00 97.5 65 16 112/68 (83) 99 01/23/17 00:00 97.6 68 16 133/64 (87) 93 -: 01/20/17 0645 01/22/17 0740 Physical Exam General Appearance: No Acute Distress, Comfortable Eyes Eye Exam: Pupils Equal Throat Throat Exam: Oral Mucosa [place] & Moist Neck Neck Exam: Neck Supple Pulmonary Resp Exam: No Distress, Rhonchi, Decreased Bases, Diminished Breath Sounds Cardiology CV Exam: Regular, Normal Sinus Rhythm Gastrointestinal/Abdomen GI Exam: Soft, Non-Tender, Bowel Sounds Present Extremeties Extremities Exam: Moderate Edema Neurologic Neuro Exam: Alert, Awake Psychiatric Psych Exam: Appropriate Responses Assessment/Plan Assessment Summary: WILLIE/Acute Renal Failure, CHF, CKD Stage IV Problem List: (1) NSTEMI (non-ST elevated myocardial infarction) ICD Codes: I21.4 - Non-ST elevation (NSTEMI) myocardial infarction Status: Resolved (2) Diabetes mellitus ICD Codes: E11.9 - Diabetes mellitus Status: Chronic (3) Asthma ICD Codes: J45.909 - Asthma Status: Chronic (4) Shortness of breath ICD Codes: R06.02 - Shortness of breath Status: Acute (5) Leg edema ICD Codes: R60.0 - Leg edema Status: Acute (6) Hypertension ICD Codes: I10 - Hypertension Status: Chronic Plan Patient has been non oliguric, Creatinine is still elevated. K is normal, Follow urine out put and BMP. Has proteinuria, serology negative. Added Phoslo as Po4 is elevated and calcitriol as Calcium is low. BP is better. Follow urine out put and watch for any renal recovery. Got the PermCath , has poor flow from Vascath. The Kidney Biopsy showing Diabetic and Hypertensive renal disease. HD to continue as per schedule. Will need out patient HD arrangement also. Case management notes seen. HD to continue 3 times a week. Awaiting arrangements for out patient HD. Problem Qualifiers (1) Diabetes mellitus: Qualified Codes: E11.22 - Type 2 diabetes mellitus with diabetic chronic kidney disease; N18.4 - Chronic kidney disease, stage 4 (severe); Z79.4 - [facility] (current) use of insulin (2) Hypertension: Qualified Codes: I10 - Essential (primary) hypertension Zoey Carbone MD Jan 23, 2017 22:16
[2017-01-24] VITALS (7 sets, daily range): BP systolic 110–156; BP diastolic 60–76; PULSE 63–82; RESP 16–20; TEMP 97.9–98.7; O2SAT 98–100
[2017-01-24] MEDS: cloNIDine HCL 0.3 MG TAB PO SCH ×3 (01:37→16:50)
[2017-01-24] MEDS: CHLORHEXIDINE GLUCONATE 2 % 1 PACK (2 CLOTHS) TOP SCH (04:00)
[2017-01-24] MEDS: hydrALAZINE HCL 50 MG TAB PO SCH ×3 (05:24→21:39)
[2017-01-24] MEDS: SODIUM CHLORIDE 0.9% FLUSH 10 ML FLUSH IV FLUSH SCH ×2 (07:33→21:35)
[2017-01-24] MEDS: SODIUM CHLORIDE 0.9% FLUSH 10 ML FLUSH IVF SCH (07:34)
[2017-01-24] MEDS: INSULIN NovoLIN REGULAR SUPPLEMENTAL SCALE SQ SCH ×4 (08:00→21:55)
[2017-01-24] MEDS: CHLORHEXIDINE 0.12% (ORAL KIT) 15 ML CUP MT SCH ×2 (08:00→20:00)
[2017-01-24] MEDS: HEPARIN SODIUM - SQ 10,000 UNITS/ML VIAL SQ SCH ×2 (08:38→21:42)
[2017-01-24] MEDS: guaiFENesin E.R. 600 MG TAB PO SCH ×2 (08:38→21:35)
[2017-01-24] MEDS: ASPIRIN 81 MG CHEW TAB CHEW SCH (08:38)
[2017-01-24] MEDS: POLYETHYLENE GLYCOL 17 GM PKG PO SCH (08:38)
[2017-01-24] MEDS: CARVEDILOL 6.25 MG TAB PO SCH ×2 (08:38→21:39)
[2017-01-24] MEDS: CALCIUM ACETATE 667 MG CAP PO SCH ×3 (08:38→17:55)
[2017-01-24] MEDS: DOCUSATE SODIUM 50 MG/SENNA 8.6 MG TAB PO SCH ×2 (08:38→21:35)
[2017-01-24] MEDS: BUDESONIDE-FORMOTEROL 160/4.5 MCG INHALER INH SCH ×2 (08:39→21:56)
[2017-01-24] MEDS: TIOTROPIUM BROMIDE 18 MCG INH INH SCH (08:39)
[2017-01-24] MEDS: INSULIN ASPART 1,000 UNITS/10 ML VIAL SQ SCH ×3 (08:39→16:50)
[2017-01-24] MEDS: ARTIFICIAL TEARS OPTH SOLN 15 ML BTL EACH EYE SCH ×3 (08:39→16:56)
[2017-01-24 10:43] LABS: BICARBONATE 28.8 MEQ/L (21.0-32.0); MAGNESIUM 2.8 MG/DL (1.5-2.5); POTASSIUM 4.2 MEQ/L (3.5-5.1)
--- NOTE | 2017-01-24 12:24 | HHI.PR ---
Subjective Remarks Patient denies cp/sob denies fevers or chills vital signs stable Objective Vitals Vital Signs Date Time Temp Pulse Resp B/P (MAP) Pulse Ox O2 Delivery O2 Flow Rate FiO2 01/24/17 08:55 99 Nasal Cannula 2.00 01/24/17 08:05 98.7 69 16 136/71 (92) 99 01/24/17 04:00 98.3 66 16 149/70 (96) 100 01/24/17 00:00 98.4 71 16 156/76 (102) 100 01/23/17 21:00 Nasal Cannula 2.00 01/23/17 20:28 98.4 74 18 142/63 (89) 97 01/23/17 17:10 99 Nasal Cannula 2.00 01/23/17 16:26 98.0 67 20 109/62 (78) 99 I/O 01/23/17 01/23/17 01/23/17 01/24/17 01/24/17 01/24/17 07:00 15:00 23:00 07:00 15:00 23:00 Intake Total 360 ml 100 ml 360 ml Output Total 1000 ml 1 ml Balance 360 ml -900 ml 359 ml Intake Oral 360 ml 360 ml IV Total 100 ml Output Urine Total 1 ml Hemodialysis 1000 ml # Voids 1 1 # Bowel Movements 0 Result Diagram: 01/20/17 0645 01/24/17 0800 Imaging Last Impressions Chest X-Ray 01/12/17 0000 Signed Impressions: Service Date/Time: Thursday, January 12, 2017 11:15 - CONCLUSION: Dialysis catheter in good position. The lungs are clear. Marek Burnett MD FACR Carotid Artery Ultrasound 01/10/17 0000 Signed Impressions: Service Date/Time: Tuesday, January 10, 2017 12:25 - CONCLUSION: Negative examination for a hemodynamically significant carotid stenosis. Marek Burnett MD FACR Upper Extremity Ultrasound 01/05/17 0000 Signed Impressions: Service Date/Time: Thursday, January 05, 2017 18:56 - CONCLUSION: Normal examination. Ji Martinez MD Renal Biopsy CT 01/03/17 0000 Signed Impressions: Service Date/Time: Tuesday, January 03, 2017 13:28 - CONCLUSION: Uncomplicated CT guided biopsy. Ji Cedillo MD Central Venous Line 01/03/17 0000 Signed Impressions: Service Date/Time: Tuesday, January 03, 2017 00:00 - CONCLUSION: Uncomplicated catheter removal. Filiberto Rodarte MD Catheter Placement X-Ray 01/03/17 Signed Impressions: Service Date/Time: Tuesday, January 03, 2017 14:27 - CONCLUSION: Uncomplicated PermaCath placement as above. Filiberto Rodarte MD Chest CT 12/08/16 Signed Impressions: Service Date/Time: Thursday, December 08, 2016 14:02 - CONCLUSION: 1. Bilateral lower lobe consolidating airspace disease. 2. Small to moderate bilateral pleural effusions; larger on the left. 3. Cardiomegaly. 4. Endotracheal and nasogastric tubes in good position. Tutu Christianson MD Renal Ultrasound 12/07/16 0000 Signed Impressions: Service Date/Time: November 07:54 - CONCLUSION: Unremarkable and stable bilateral renal ultrasound. No evidence of hydronephrosis. Baron Medrano MD Objective Remarks AAOx3 Facial edema Lungs clear BL no edema in lower extremities Procedures Echo 12/07/2016 Mildly dilated left ventricle. Wall thickness is normal. The left ventricular systolic function is normal with an estimated ejection fraction is 45-50%. There is distinct regional wall motion abnormalities with akinetic apex and possibly clot at the apex. Consider repeating study with contrast/Definity to better asses apex The right ventriclar size is upper limits of normal. The left atrial size is moderately dilated. The right atrial size is moderately dilated. [id number] mitral valve regurgitation. There is mild tricuspid valve regurgitation. There is estimated mild pulmonary hypertension present (range 40-50 mmHg). The pulmonary valve is not well visualized. The inferior vena cava is dilated. There is less than 50% respiratory change in dimension of the inferior vena cava (abnormal). Medications and IVs Current Medications Medications (Trade) Dose Ordered Sig/Abby Route Start Time Stop Time Status Last Admin (D50w (Vial) Inj) 25 ml UNSCH PRN IV PUSH 12/07/16 00:45 (Zofran Inj) 4 mg Q6H PRN IV 12/07/16 00:45 (NS Flush) DAILY IVF 12/07/16 15:30 01/24/17 07:34 (NS Flush) UNSCH PRN IVF 12/07/16 15:30 (Peridex 0.12% Liq) 15 ml BID@08,20 MT 12/07/16 20:00 01/24/17 08:00 (Albuterol Neb) 2.5 mg Q2HR NEB PRN NEB 12/07/16 15:30 01/21/17 16:36 (NS Flush) 2 ml UNSCH PRN IV FLUSH 12/07/16 15:30 12/12/16 11:32 (NS Flush) 2 ml BID IV FLUSH 12/07/16 21:00 01/24/17 07:33 (Tylenol) 650 mg Q6H PRN PO 12/07/16 15:30 01/18/17 12:21 (Tears Naturale Opth Soln) 1 drop TID EACH EYE 12/07/16 18:00 01/24/17 12:12 Miscellaneous Information 1 Q361D XX 12/07/16 15:30 (Chlorhexidine 2% Cloth) Taper DAILY@04 TOP 12/08/16 04:00 12/04/17 03:59 01/01/17 03:31 (Chlorhexidine 2% Cloth) 3 pack UNSCH PRN TOP 12/07/16 15:30 (Milk Of Magnesia Liq) 30 ml Q12H PRN PO 12/07/16 15:30 01/18/17 15:48 (Senokot) 17.2 mg Q12H PRN PO 12/07/16 15:30 01/08/17 22:36 (Aspirin Chew) 81 mg DAILY CHEW 12/08/16 12:00 01/24/17 08:38 (Trandate Inj) 20 mg Q2H PRN IV 12/10/16 00:15 12/14/16 08:05 (Morphine Inj) 2 mg Q3H PRN IV PUSH 12/10/16 09:15 01/23/17 21:53 (Coreg) 6.25 mg Q12HR PO 12/10/16 10:00 01/24/17 08:38 (Phoslo) 1,334 mg TID PO 12/10/16 13:00 01/24/17 12:12 (Rocaltrol) 0.5 mcg DAILY PO 12/10/16 12:45 Future Hold 01/23/17 12:52 (Symbicort 160-4.5 Inh) 1 puff Q12HR INH 12/11/16 12:00 01/24/17 08:39 (Spiriva Inh) 18 mcg DAILY INH 12/11/16 12:00 01/24/17 08:39 (Norvasc) 10 mg DAILY PO 12/11/16 15:15 01/24/17 08:38 (Apresoline Inj) 20 mg Q4H PRN IV PUSH 12/11/16 15:15 12/18/16 04:26 (Catapres) 0.3 mg Q8H PO 12/12/16 08:00 01/24/17 08:38 Sodium Chloride 1,000 ml @ 0 mls/hr Q0M PRN IV 12/12/16 12:11 01/09/17 11:31 (Heparin Inj) 8,000 units UNSCH PRN IVF 12/12/16 12:15 01/06/17 10:58 Sodium Chloride 1,000 ml @ 200 mls/hr Q5H PRN IV 12/12/16 12:11 Sodium Chloride 1,000 ml @ 0 mls/hr Q0M PRN IV 12/12/16 12:11 12/12/16 17:04 (Mannitol Inj) 12.5 gm UNSCH PRN IV 12/12/16 12:15 (Albumin 25% Inj) 25 gm UNSCH PRN IV 12/12/16 12:15 01/23/17 08:23 (NS Flush) 5 ml UNSCH PRN IV FLUSH 12/12/16 12:15 12/26/16 10:34 (Heparin Inj) UNSCH PRN .XX 12/12/16 12:15 01/23/17 08:24 (Gentamicin (Dialysis) Inj) 20 mg UNSCH PRN IV 12/12/16 12:15 01/23/17 08:24 (Zofran Inj) 4 mg UNSCH PRN IV 12/12/16 12:15 (Tylenol) 650 mg UNSCH PRN PO 12/12/16 12:15 01/08/17 15:15 (Benadryl) 25 mg UNSCH PRN PO 12/12/16 12:15 (Nitrostat Sl) 0.4 mg UNSCH PRN SL 12/12/16 12:15 (Catapres) 0.1 mg UNSCH PRN PO 12/12/16 12:15 12/24/16 18:49 (Epogen Inj) 10,000 units UNSCH PRN IV 12/12/16 12:15 01/23/17 08:24 (Gelfoam 12 Mm/7 Mm Top) 1 foam UNSCH PRN TOP 12/12/16 12:15 (Apresoline) 50 mg Q8HR PO 12/26/16 14:00 01/24/17 13:18 (NS Flush) UNSCH PRN IVF 01/03/17 16:15 (Heparin Inj) UNSCH PRN IV FLUSH 01/03/17 16:15 (Heparin Inj) 5,000 units Q12HR SQ 01/07/17 09:00 01/24/17 08:38 (Mucinex Er) 600 mg BID PO 01/12/17 10:30 01/24/17 08:38 (Cepacol Extra Ha (Sugar Free)) 1 lozenge Q2HR PRN BUCCAL 01/13/17 13:00 (Flomax) 0.4 mg HS PO 01/14/17 21:00 01/23/17 21:48 (NovoLOG INJ) 8 units TIDAC SQ 01/15/17 12:30 01/24/17 12:57 (Levemir Inj) 37 units HS SQ 01/16/17 21:00 01/23/17 21:51 (Fleets Enema (Adult)) 133 ml UNSCH PRN RECTAL 01/18/17 18:30 01/22/17 11:57 (NovoLIN R SUPPLEMENTAL SCALE) 1 ACHS SQ 01/19/17 12:00 01/24/17 13:18 (Narcan Inj) 0.4 mg UNSCH PRN IV PUSH 01/21/17 13:00 (Dulcolax Supp) 10 mg DAILY PRN RECTAL 01/21/17 13:00 01/22/17 15:56 (Lactulose Liq) 30 ml DAILY PRN PO 01/21/17 13:00 (Sara-Colace) 1 tab BID PO 01/21/17 21:00 02/20/17 20:59 01/24/17 08:38 (Miralax) 17 gm DAILY PO 01/24/17 09:00 01/24/17 08:38 A/P Problem List: (1) Respiratory failure ICD Code: J96.90 - Respiratory failure, unspecified, unspecified whether with hypoxia or hypercapnia Status: Acute (2) Sepsis ICD Code: A41.9 - Sepsis, unspecified organism Status: Acute (3) Pneumonia ICD Code: J18.9 - Pneumonia, unspecified organism Status: Acute (4) left atrial thrombus Status: Acute (5) NSTEMI (non-ST elevated myocardial infarction) ICD Code: I21.4 - Non-ST elevation (NSTEMI) myocardial infarction Status: Resolved (6) ARF (acute renal failure) ICD Code: N17.9 - ARF (acute renal failure) Status: Acute (7) Diabetes mellitus ICD Code: E11.9 - Diabetes mellitus Status: Chronic (8) Morbid obesity ICD Code: E66.01 - Morbid (severe) obesity due to excess calories Status: Acute (9) Severe chronic obstructive pulmonary disease ICD Code: J44.9 - Chronic obstructive pulmonary disease, unspecified Status: Acute (10) CKD (chronic kidney disease) stage 4, GFR 15-29 ml/min ICD Code: N18.4 - Chronic kidney disease, stage 4 (severe) Status: Acute Assessment and Plan Mr. Mehta is a 66-year-old male with medical history significant for hypertension and diabetes and CVA who presented to the hospital with a chief complaint of shortness of breath and chest pain. The patient was diagnosed with NSTEMI. Echo was performed which was concerning for thrombus, but study was limited and a repeat was suggested. He has history of chronic kidney disease but worsening of his creatinine was noted. He was seen and evaluated by nephrology who started the patient on hemodialysis. CKD stage IV with GFR 8 Acute renal failure progressing to ESRD - nephrology on board, started on hemodialysis TTHSa - PermaCath placed. Vascular surgery unable to find adequate vein for AVF. Will await nephrology further recommendations. - Kidney biopsy on 01/03/2017 --> diffuse and nodular diabetic glomerulosclerosis, segmental and global glomerular sclerosis, interstitial fibrosis and tubular atrophy severe. - follow UO - monitor BMP, am labs ordered S/P acute respiratory failure secondary to bilateral lower lobe pneumonias/ community acquired - resolved - Urine antigens, sputum culture, blood cultures were all negative. S/p abx treatment course with azithromycin and Rocephin. - Chest x-ray 01/12 clear and labs unremarkable for acute process - Continue guaifenesin and Acapella for cough - O2 if needed to keep sats >92%. - monitor respiratory status Hypercalcemia - Hold calcitriol - 01/24 Hypercalcemia resolving - continue to hold Calcitriol. COPD - Continue Symbicort and Spiriva - Continue albuterol neb. - Not on exacerbation. NSTEMI Hypertension - Echo performed December 07 showed distinct regional wall abnormalities with a possible clot in the apex. - echo with Definity contrast did not appear to show any clots in LV. - Cardiology was consulted, stable from a cardiac standpoint and recommended continued aggressive risk factor modification - ASA 81 mg daily. Coreg 6.25 mg BID. Norvasc 10 mg daily. Clonidine to 0.3 mg po TID and hydralazine 50 mg by mouth daily 8 hour Diabetes mellitus - Continue Levemir 37 units QHS and sliding scale insulin. - pre-meal insulin 8 units TIDAC - Monitor Accu-Cheks and adjust regimen as indicated - 01/24 Blood sugars stable. BPH - continue Tamsulosin. Stable. Deconditioning: PT recommends SNF, generalized weakness likely due to prolonged hospitalization and multiple medical conditions as above. - Continue PT Sunday through Sunday while admitted Constipation - Pericolace BID - add Miralax daily - monitor for BM Heparin SQ for DVT prophylaxis. Discharge Planning Patient will need hemodialysis, not a [place] citizen. Not a safe discharge. Discussed with CM. 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
--- NOTE | 2017-01-24 16:35 | HHI.NPPN ---
Subjective History of Present Illness 66-year-old male with past medical history of hypertension, diabetes mellitus, history of cerebrovascular accident with left-sided weakness, hyperlipidemia, bronchial asthma, chronic kidney disease who was admitted because of shortness of breath and chest pain. I was called to see the patient because of elevated BUN and creatinine. The patient was diagnosed here with non-ST elevation [place]. The patient has history of chronic kidney disease. Additional Remarks Patient is alert, not in distress, no SOB, still not eating and lying in the bed most of the time. Objective Data Data Vital Signs Date Time Temp Pulse Resp B/P (MAP) Pulse Ox O2 Delivery O2 Flow Rate FiO2 01/24/17 12:00 97.9 63 20 110/60 (77) 100 01/24/17 08:55 99 Nasal Cannula 2.00 01/24/17 08:05 98.7 69 16 136/71 (92) 99 01/24/17 04:00 98.3 66 16 149/70 (96) 100 01/24/17 00:00 98.4 71 16 156/76 (102) 100 01/23/17 21:00 Nasal Cannula 2.00 01/23/17 20:28 98.4 74 18 142/63 (89) 97 01/23/17 17:10 99 Nasal Cannula 2.00 -: 01/20/17 0645 01/24/17 0800 Physical Exam General Appearance: No Acute Distress, Comfortable Eyes Eye Exam: Pupils Equal Throat Throat Exam: Oral Mucosa [place] & Moist Neck Neck Exam: Neck Supple Pulmonary Resp Exam: No Distress, Rhonchi, Decreased Bases, Diminished Breath Sounds Cardiology CV Exam: Regular, Normal Sinus Rhythm Gastrointestinal/Abdomen GI Exam: Soft, Non-Tender, Bowel Sounds Present Extremeties Extremities Exam: Moderate Edema Neurologic Neuro Exam: Alert, Awake Psychiatric Psych Exam: Appropriate Responses Assessment/Plan Assessment Summary: WILLIE/Acute Renal Failure, CHF, CKD Stage IV Problem List: (1) NSTEMI (non-ST elevated myocardial infarction) ICD Codes: I21.4 - Non-ST elevation (NSTEMI) myocardial infarction Status: Resolved (2) Diabetes mellitus ICD Codes: E11.9 - Diabetes mellitus Status: Chronic (3) Asthma ICD Codes: J45.909 - Asthma Status: Chronic (4) Shortness of breath ICD Codes: R06.02 - Shortness of breath Status: Acute (5) Leg edema ICD Codes: R60.0 - Leg edema Status: Acute (6) Hypertension ICD Codes: I10 - Hypertension Status: Chronic Plan Patient has been non oliguric, Creatinine is still elevated. K is normal, Follow urine out put and BMP. Has proteinuria, serology negative. Added Phoslo as Po4 is elevated and calcitriol as Calcium is low. BP is better. Follow urine out put and watch for any renal recovery. Got the PermCath , has poor flow from Vascath. The Kidney Biopsy showing Diabetic and Hypertensive renal disease. HD to continue as per schedule. Will need out patient HD arrangement also. Case management notes seen. HD to continue 3 times a week. Seen during HD, continue HD , and awaiting arrangements for out patient HD. 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
[2017-01-24] MEDS: TAMSULOSIN HCL 0.4 MG CAP PO SCH (21:35)
[2017-01-24] MEDS: INSULIN DETEMIR 100 UNITS/ML VIAL SQ SCH (21:53)
[2017-01-25] VITALS: BP 157/76; PULSE 79; RESP 18; TEMP 98.4; O2SAT 95
[2017-01-25] MEDS: cloNIDine HCL 0.3 MG TAB PO SCH ×3 (01:46→16:44)
[2017-01-25 04:00] VITALS: BP 130/66; PULSE 66; RESP 16; TEMP 97.8; O2SAT 99
[2017-01-25] MEDS: CHLORHEXIDINE GLUCONATE 2 % 1 PACK (2 CLOTHS) TOP SCH (04:00)
[2017-01-25] MEDS: hydrALAZINE HCL 50 MG TAB PO SCH ×3 (05:33→21:18)
[2017-01-25 08:00] VITALS: BP 117/70; PULSE 76; RESP 20; TEMP 98.8; O2SAT 98
[2017-01-25] MEDS: INSULIN NovoLIN REGULAR SUPPLEMENTAL SCALE SQ SCH ×4 (08:00→21:19)
[2017-01-25] MEDS: INSULIN ASPART 1,000 UNITS/10 ML VIAL SQ SCH ×3 (08:00→19:13)
[2017-01-25] MEDS: SODIUM CHLORIDE 0.9% FLUSH 10 ML FLUSH IVF SCH (09:00)
[2017-01-25] MEDS: RESP: ALBUTEROL 2.5 MG/3 ML NEB (PRN) NEB (09:51)
[2017-01-25] MEDS: HEPARIN SODIUM - IV 10,000 UNITS/10 ML VIAL PRN (10:01)
[2017-01-25] MEDS: EPOETIN ALFA 10,000 UNITS/ML VIAL IV PRN (10:15)
[2017-01-25] MEDS: GENTAMICIN SULFATE (DIALYSIS USE ONLY) 20 MG/2 ML VIAL IV PRN (10:16)
[2017-01-25] MEDS: POLYETHYLENE GLYCOL 17 GM PKG PO SCH (11:00)
[2017-01-25] MEDS: DOCUSATE SODIUM 50 MG/SENNA 8.6 MG TAB PO SCH ×2 (11:00→21:18)
[2017-01-25] MEDS: ASPIRIN 81 MG CHEW TAB CHEW SCH (11:00)
[2017-01-25] MEDS: ARTIFICIAL TEARS OPTH SOLN 15 ML BTL EACH EYE SCH ×3 (11:00→16:44)
[2017-01-25] MEDS: TIOTROPIUM BROMIDE 18 MCG INH INH SCH (11:00)
[2017-01-25] MEDS: BUDESONIDE-FORMOTEROL 160/4.5 MCG INHALER INH SCH ×2 (11:00→21:00)
[2017-01-25] MEDS: CALCIUM ACETATE 667 MG CAP PO SCH ×3 (11:00→16:44)
[2017-01-25] MEDS: CARVEDILOL 6.25 MG TAB PO SCH ×2 (11:00→21:18)
[2017-01-25] MEDS: HEPARIN SODIUM - SQ 10,000 UNITS/ML VIAL SQ SCH ×2 (11:00→21:18)
[2017-01-25] MEDS: SODIUM CHLORIDE 0.9% FLUSH 10 ML FLUSH IV FLUSH SCH ×2 (11:00→21:24)
[2017-01-25] MEDS: guaiFENesin E.R. 600 MG TAB PO SCH ×2 (11:00→21:18)
[2017-01-25 12:00] VITALS: BP 124/70; PULSE 106; RESP 20; TEMP 99.5; O2SAT 96
[2017-01-25] MEDS: CHLORHEXIDINE 0.12% (ORAL KIT) 15 ML CUP MT SCH ×2 (12:00→20:00)
--- NOTE | 2017-01-25 12:27 | HHI.PR ---
Subjective Remarks Patient states feels better denies cp/sob denies diarrhea or abdominal pain Objective Vitals Vital Signs Date Time Temp Pulse Resp B/P (MAP) Pulse Ox O2 Delivery O2 Flow Rate FiO2 01/25/17 08:00 98.8 76 20 117/70 (86) 98 01/25/17 04:00 Nasal Cannula 2.00 01/25/17 04:00 97.8 66 16 130/66 (87) 99 01/25/17 00:00 Nasal Cannula 2.00 01/25/17 00:00 98.4 79 18 157/76 (103) 95 01/24/17 20:00 Nasal Cannula 2.00 01/24/17 20:00 98.4 82 18 143/75 (97) 98 01/24/17 16:00 97.9 71 18 138/60 (86) 100 I/O 01/24/17 01/24/17 01/24/17 01/25/17 01/25/17 01/25/17 07:00 15:00 23:00 07:00 15:00 23:00 Intake Total 480 ml 480 ml Output Total 600 ml 800 ml Balance -120 ml 480 ml -800 ml Intake Oral 480 ml 480 ml Output Urine Total 600 ml Hemodialysis 800 ml # Voids 1 2 # Bowel Movements 0 0 Result Diagram: 01/24/17 0800 Imaging Last Impressions Chest X-Ray 01/12/17 0000 Signed Impressions: Service Date/Time: Thursday, January 12, 2017 11:15 - CONCLUSION: Dialysis catheter in good position. The lungs are clear. Marek Burnett MD FACR Carotid Artery Ultrasound 01/10/17 0000 Signed Impressions: Service Date/Time: Tuesday, January 10, 2017 12:25 - CONCLUSION: Negative examination for a hemodynamically significant carotid stenosis. Marek Burnett MD FACR Upper Extremity Ultrasound 01/05/17 0000 Signed Impressions: Service Date/Time: Thursday, January 05, 2017 18:56 - CONCLUSION: Normal examination. Ji Martinez MD Renal Biopsy CT 01/03/17 0000 Signed Impressions: Service Date/Time: Tuesday, January 03, 2017 13:28 - CONCLUSION: Uncomplicated CT guided biopsy. Ji Cedillo MD Central Venous Line 01/03/17 0000 Signed Impressions: Service Date/Time: Tuesday, January 03, 2017 00:00 - CONCLUSION: Uncomplicated catheter removal. Filiberto Rodarte MD Catheter Placement X-Ray 01/03/17 0000 Signed Impressions: Service Date/Time: Tuesday, January 03, 2017 14:27 - CONCLUSION: Uncomplicated PermaCath placement as above. Filiberto Rodarte MD Chest CT 12/08/16 0000 Signed Impressions: Service Date/Time: Thursday, December 08, 2016 14:02 - CONCLUSION: 1. Bilateral lower lobe consolidating airspace disease. 2. Small to moderate bilateral pleural effusions; larger on the left. 3. Cardiomegaly. 4. Endotracheal and nasogastric tubes in good position. Tutu Christianson MD Renal Ultrasound 12/07/16 0000 Signed Impressions: Service Date/Time: November 07:54 - CONCLUSION: Unremarkable and stable bilateral renal ultrasound. No evidence of hydronephrosis. Baron Medrano MD Objective Remarks AAOx3 Facial edema Lungs clear BL no edema in lower extremities Procedures Echo 12/07/2016 Mildly dilated left ventricle. Wall thickness is normal. The left ventricular systolic function is normal with an estimated ejection fraction is 45-50%. There is distinct regional wall motion abnormalities with akinetic apex and possibly clot at the apex. Consider repeating study with contrast/Definity to better asses apex The right ventriclar size is upper limits of normal. The left atrial size is moderately dilated. The right atrial size is moderately dilated. Aorn-[id number]-vykuzeei mitral valve regurgitation. There is mild tricuspid valve regurgitation. There is estimated mild pulmonary hypertension present (range 40-50 mmHg). The pulmonary valve is not well visualized. The inferior vena cava is dilated. There is less than 50% respiratory change in dimension of the inferior vena cava (abnormal). Medications and IVs Current Medications Medications (Trade) Dose Ordered Sig/Abby Route Start Time Stop Time Status Last Admin (D50w (Vial) Inj) 25 ml UNSCH PRN IV PUSH 12/07/16 00:45 (Zofran Inj) 4 mg Q6H PRN IV 12/07/16 00:45 (NS Flush) DAILY IVF 12/07/16 15:30 01/24/17 07:34 (NS Flush) UNSCH PRN IVF 12/07/16 15:30 (Peridex 0.12% Liq) 15 ml BID@08,20 MT 12/07/16 20:00 01/24/17 08:00 (Albuterol Neb) 2.5 mg Q2HR NEB PRN NEB 12/07/16 15:30 01/25/17 09:51 (NS Flush) 2 ml UNSCH PRN IV FLUSH 12/07/16 15:30 12/12/16 11:32 (NS Flush) 2 ml BID IV FLUSH 12/07/16 21:00 01/24/17 21:35 (Tylenol) 650 mg Q6H PRN PO 12/07/16 15:30 01/18/17 12:21 (Tears Naturale Opth Soln) 1 drop TID EACH EYE 12/07/16 18:00 01/24/17 16:56 Miscellaneous Information 1 Q361D XX 12/07/16 15:30 (Chlorhexidine 2% Cloth) Taper DAILY@04 TOP 12/08/16 04:00 12/04/17 03:59 01/01/17 03:31 (Chlorhexidine 2% Cloth) 3 pack UNSCH PRN TOP 12/07/16 15:30 (Milk Of Magnesia Liq) 30 ml Q12H PRN PO 12/07/16 15:30 01/18/17 15:48 (Senokot) 17.2 mg Q12H PRN PO 12/07/16 15:30 01/08/17 22:36 (Aspirin Chew) 81 mg DAILY CHEW 12/08/16 12:00 01/24/17 08:38 (Trandate Inj) 20 mg Q2H PRN IV 12/10/16 00:15 12/14/16 08:05 (Morphine Inj) 2 mg Q3H PRN IV PUSH 12/10/16 09:15 01/23/17 21:53 (Coreg) 6.25 mg Q12HR PO 12/10/16 10:00 01/24/17 21:39 (Phoslo) 1,334 mg TID PO 12/10/16 13:00 01/24/17 17:55 (Rocaltrol) 0.5 mcg DAILY PO 12/10/16 12:45 Future Hold 01/23/17 12:52 (Symbicort 160-4.5 Inh) 1 puff Q12HR INH 12/11/16 12:00 01/24/17 21:56 (Spiriva Inh) 18 mcg DAILY INH 12/11/16 12:00 01/24/17 08:39 (Norvasc) 10 mg DAILY PO 12/11/16 15:15 01/24/17 08:38 (Apresoline Inj) 20 mg Q4H PRN IV PUSH 12/11/16 15:15 12/18/16 04:26 (Catapres) 0.3 mg Q8H PO 12/12/16 08:00 01/25/17 01:46 Sodium Chloride 1,000 ml @ 0 mls/hr Q0M PRN IV 12/12/16 12:11 01/09/17 11:31 (Heparin Inj) 8,000 units UNSCH PRN IVF 12/12/16 12:15 01/06/17 10:58 Sodium Chloride 1,000 ml @ 200 mls/hr Q5H PRN IV 12/12/16 12:11 Sodium Chloride 1,000 ml @ 0 mls/hr Q0M PRN IV 12/12/16 12:11 12/12/16 17:04 (Mannitol Inj) 12.5 gm UNSCH PRN IV 12/12/16 12:15 (Albumin 25% Inj) 25 gm UNSCH PRN IV 12/12/16 12:15 01/23/17 08:23 (NS Flush) 5 ml UNSCH PRN IV FLUSH 12/12/16 12:15 12/26/16 10:34 (Heparin Inj) UNSCH PRN .XX 12/12/16 12:15 01/25/17 10:01 (Gentamicin (Dialysis) Inj) 20 mg UNSCH PRN IV 12/12/16 12:15 01/25/17 10:16 (Zofran Inj) 4 mg UNSCH PRN IV 12/12/16 12:15 (Tylenol) 650 mg UNSCH PRN PO 12/12/16 12:15 01/08/17 15:15 (Benadryl) 25 mg UNSCH PRN PO 12/12/16 12:15 (Nitrostat Sl) 0.4 mg UNSCH PRN SL 12/12/16 12:15 (Catapres) 0.1 mg UNSCH PRN PO 12/12/16 12:15 12/24/16 18:49 (Epogen Inj) 10,000 units UNSCH PRN IV 12/12/16 12:15 01/25/17 10:15 (Gelfoam 12 Mm/7 Mm Top) 1 foam UNSCH PRN TOP 12/12/16 12:15 (Apresoline) 50 mg Q8HR PO 12/26/16 14:00 01/25/17 05:33 (NS Flush) UNSCH PRN IVF 01/03/17 16:15 (Heparin Inj) UNSCH PRN IV FLUSH 01/03/17 16:15 (Heparin Inj) 5,000 units Q12HR SQ 01/07/17 09:00 01/24/17 21:42 (Mucinex Er) 600 mg BID PO 01/12/17 10:30 01/24/17 21:35 (Cepacol Extra Ha (Sugar Free)) 1 lozenge Q2HR PRN BUCCAL 01/13/17 13:00 (Flomax) 0.4 mg HS PO 01/14/17 21:00 01/24/17 21:35 (NovoLOG INJ) 8 units TIDAC SQ 01/15/17 12:30 01/24/17 16:50 (Levemir Inj) 37 units HS SQ 01/16/17 21:00 01/24/17 21:53 (Fleets Enema (Adult)) 133 ml UNSCH PRN RECTAL 01/18/17 18:30 01/22/17 11:57 (NovoLIN R SUPPLEMENTAL SCALE) 1 ACHS SQ 01/19/17 12:00 01/24/17 21:55 (Narcan Inj) 0.4 mg UNSCH PRN IV PUSH 01/21/17 13:00 (Dulcolax Supp) 10 mg DAILY PRN RECTAL 01/21/17 13:00 01/22/17 15:56 (Lactulose Liq) 30 ml DAILY PRN PO 01/21/17 13:00 (Sara-Colace) 1 tab BID PO 01/21/17 21:00 02/20/17 20:59 01/24/17 21:35 (Miralax) 17 gm DAILY PO 01/24/17 09:00 01/24/17 08:38 Urinary Catheter: No Vascular Central Line Catheter: No A/P Problem List: (1) Respiratory failure ICD Code: J96.90 - Respiratory failure, unspecified, unspecified whether with hypoxia or hypercapnia Status: Acute (2) Sepsis ICD Code: A41.9 - Sepsis, unspecified organism Status: Acute (3) Pneumonia ICD Code: J18.9 - Pneumonia, unspecified organism Status: Acute (4) left atrial thrombus Status: Acute (5) NSTEMI (non-ST elevated myocardial infarction) ICD Code: I21.4 - Non-ST elevation (NSTEMI) myocardial infarction Status: Resolved (6) ARF (acute renal failure) ICD Code: N17.9 - ARF (acute renal failure) Status: Acute (7) Diabetes mellitus ICD Code: E11.9 - Diabetes mellitus Status: Chronic (8) Morbid obesity ICD Code: E66.01 - Morbid (severe) obesity due to excess calories Status: Acute (9) Severe chronic obstructive pulmonary disease ICD Code: J44.9 - Chronic obstructive pulmonary disease, unspecified Status: Acute (10) CKD (chronic kidney disease) stage 4, GFR 15-29 ml/min ICD Code: N18.4 - Chronic kidney disease, stage 4 (severe) Status: Acute Assessment and Plan Mr. Mehta is a 66-year-old male with medical history significant for hypertension and diabetes and CVA who presented to the hospital with a chief complaint of shortness of breath and chest pain. The patient was diagnosed with NSTEMI. Echo was performed which was concerning for thrombus, but study was limited and a repeat was suggested. He has history of chronic kidney disease but worsening of his creatinine was noted. He was seen and evaluated by nephrology who started the patient on hemodialysis. CKD stage IV with GFR 8 Acute renal failure progressing to ESRD - nephrology on board, started on hemodialysis TTHSa - PermaCath placed. Vascular surgery unable to find adequate vein for AVF. Will await nephrology further recommendations. - Kidney biopsy on 01/03/2017 --> diffuse and nodular diabetic glomerulosclerosis, segmental and global glomerular sclerosis, interstitial fibrosis and tubular atrophy severe. - follow UO - monitor BMP, am labs ordered S/P acute respiratory failure secondary to bilateral lower lobe pneumonias/ community acquired - resolved - Urine antigens, sputum culture, blood cultures were all negative. S/p abx treatment course with azithromycin and Rocephin. - Chest x-ray 01/12 clear and labs unremarkable for acute process - Continue guaifenesin and Acapella for cough - O2 if needed to keep sats >92%. - monitor respiratory status Hypercalcemia - Hold calcitriol - 01/24 Hypercalcemia resolving - continue to hold Calcitriol. COPD - Continue Symbicort and Spiriva - Continue albuterol neb. - Not on exacerbation. NSTEMI Hypertension - Echo performed December 07 showed distinct regional wall abnormalities with a possible clot in the apex. - echo with Definity contrast did not appear to show any clots in LV. - Cardiology was consulted, stable from a cardiac standpoint and recommended continued aggressive risk factor modification - ASA 81 mg daily. Coreg 6.25 mg BID. Norvasc 10 mg daily. Clonidine to 0.3 mg po TID and hydralazine 50 mg by mouth daily 8 hour Diabetes mellitus - Continue Levemir 37 units QHS and sliding scale insulin. - pre-meal insulin 8 units TIDAC - Monitor Accu-Cheks and adjust regimen as indicated - 01/24 Blood sugars stable. BPH - continue Tamsulosin. Stable. Deconditioning: PT recommends SNF, generalized weakness likely due to prolonged hospitalization and multiple medical conditions as above. - Continue PT Sunday through Sunday while admitted Constipation - Pericolace BID - add Miralax daily - monitor for BM Heparin SQ for DVT prophylaxis. Discharge Planning Patient will need hemodialysis, not a [place] citizen. Not a safe discharge. Discussed with CM. 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
[2017-01-25 16:00] VITALS: BP 107/62; PULSE 86; RESP 20; TEMP 98.7; O2SAT 97
--- NOTE | 2017-01-25 16:45 | HHI.NPPN ---
Subjective History of Present Illness 66-year-old male with past medical history of hypertension, diabetes mellitus, history of cerebrovascular accident with left-sided weakness, hyperlipidemia, bronchial asthma, chronic kidney disease who was admitted because of shortness of breath and chest pain. I was called to see the patient because of elevated BUN and creatinine. The patient was diagnosed here with non-ST elevation MT. The patient has history of chronic kidney disease. Additional Remarks Patient is alert, not in distress, no complain except feeling tired. Objective Data Data 01/25/17 01/26/17 19:00 07:00 Output Total 800 ml Balance -800 ml Hemodialysis 800 ml Vital Signs Date Time Temp Pulse Resp B/P (MAP) Pulse Ox O2 Delivery O2 Flow Rate FiO2 01/25/17 12:00 99.5 106 20 124/70 (88) 96 01/25/17 08:00 98.8 76 20 117/70 (86) 98 01/25/17 04:00 Nasal Cannula 2.00 01/25/17 04:00 97.8 66 16 130/66 (87) 99 01/25/17 00:00 Nasal Cannula 2.00 01/25/17 00:00 98.4 79 18 157/76 (103) 95 01/24/17 20:00 Nasal Cannula 2.00 01/24/17 20:00 98.4 82 18 143/75 (97) 98 -: 01/24/17 0800 Physical Exam General Appearance: No Acute Distress, Comfortable Eyes Eye Exam: Pupils Equal Throat Throat Exam: Oral Mucosa [place] & Moist Neck Neck Exam: Neck Supple Pulmonary Resp Exam: No Distress, Rhonchi, Decreased Bases, Diminished Breath Sounds Cardiology CV Exam: Regular, Normal Sinus Rhythm Gastrointestinal/Abdomen GI Exam: Soft, Non-Tender, Bowel Sounds Present Extremeties Extremities Exam: Moderate Edema Neurologic Neuro Exam: Alert, Awake Psychiatric Psych Exam: Appropriate Responses Assessment/Plan Assessment Summary: WILLIE/Acute Renal Failure, CHF, CKD Stage IV Problem List: (1) NSTEMI (non-ST elevated myocardial infarction) ICD Codes: I21.4 - Non-ST elevation (NSTEMI) myocardial infarction Status: Resolved (2) Diabetes mellitus ICD Codes: E11.9 - Diabetes mellitus Status: Chronic (3) Asthma ICD Codes: J45.909 - Asthma Status: Chronic (4) Shortness of breath ICD Codes: R06.02 - Shortness of breath Status: Acute (5) Leg edema ICD Codes: R60.0 - Leg edema Status: Acute (6) Hypertension ICD Codes: I10 - Hypertension Status: Chronic Plan Patient has been non oliguric, Creatinine is still elevated. K is normal, Follow urine out put and BMP. Has proteinuria, serology negative. Added Phoslo as Po4 is elevated and calcitriol as Calcium is low. BP is better. Follow urine out put and watch for any renal recovery. Got the PermCath , has poor flow from Vascath. The Kidney Biopsy showing Diabetic and Hypertensive renal disease. Case management notes seen. HD to continue 3 times a week. Awaiting arrangements for out patient HD. HD again in AM. Problem Qualifiers (1) Diabetes mellitus: Qualified Codes: E11.22 - Type 2 diabetes mellitus with diabetic chronic kidney disease; N18.4 - Chronic kidney disease, stage 4 (severe); Z79.4 - skilled nursing (current) use of insulin (2) Hypertension: Qualified Codes: I10 - Essential (primary) hypertension Zoey Carbone MD Jan 25, 2017 16:45
[2017-01-25 20:00] VITALS: BP 102/63; PULSE 72; RESP 18; TEMP 98.5; O2SAT 100
[2017-01-25] MEDS: TAMSULOSIN HCL 0.4 MG CAP PO SCH (21:19)
[2017-01-25] MEDS: INSULIN DETEMIR 100 UNITS/ML VIAL SQ SCH (21:19)
[2017-01-26] VITALS: BP 118/60; PULSE 70; PULSE 82; RESP 18; TEMP 97; TEMP 98; O2SAT 97; O2SAT 98
[2017-01-26] MEDS: MORPHINE SULFATE 4 MG/ML INJ IV PUSH PRN ×2 (00:40→04:32)
[2017-01-26] MEDS: cloNIDine HCL 0.3 MG TAB PO SCH ×4 (00:44→23:31)
[2017-01-26] MEDS: CHLORHEXIDINE GLUCONATE 2 % 1 PACK (2 CLOTHS) TOP SCH (03:32)
[2017-01-26 04:00] VITALS: BP 114/62; PULSE 66; RESP 20; TEMP 98.7; O2SAT 97
[2017-01-26] MEDS: hydrALAZINE HCL 50 MG TAB PO SCH ×3 (06:14→23:31)
[2017-01-26 08:00] VITALS: BP 113/60; PULSE 80; RESP 20; TEMP 98.7; O2SAT 95
[2017-01-26] MEDS: INSULIN NovoLIN REGULAR SUPPLEMENTAL SCALE SQ SCH ×4 (08:00→23:31)
[2017-01-26] MEDS: CHLORHEXIDINE 0.12% (ORAL KIT) 15 ML CUP MT SCH ×2 (08:00→20:00)
[2017-01-26 08:38] LABS: BASOPHIL # 0.1 TH/MM3 (0-0.2); EOSINOPHIL # 0.7 TH/MM3 (0-0.4); EOSINOPHIL % 9.9 % (0.0-4.0); HEMATOCRIT 33.4 % (39.0-51.0); HEMO FLAGS DIFF FINAL; LYMPH % 27.8 % (9.0-44.0); LYMPHOCYTE # 1.9 TH/MM3 (1.0-4.8); MEAN CELL VOLUME 86.9 FL (80.0-100.0); MEAN CORPUSCULAR HEMOGLOBIN 27.3 PG (27.0-34.0); MEAN CORPUSCULAR HGB CONC 31.4 % (32.0-36.0); MONO % 17.1 % (0.0-8.0); NEUT % 44.2 % (16.0-70.0); PLATELET COUNT 253 TH/MM3 (150-450); RED BLOOD COUNT 3.84 MIL/MM3 (4.50-5.90); RED CELL DISTRIBUTION WIDTH 16.2 % (11.6-17.2); WHITE BLOOD COUNT 6.8 TH/MM3 (4.0-11.0)
[2017-01-26] MEDS: SODIUM CHLORIDE 0.9% FLUSH 10 ML FLUSH IVF SCH (09:00)
[2017-01-26 09:01] LABS: ANION GAP 7 MEQ/L (5-15); AST (GOT) 12 U/L (15-37); BICARBONATE 30.6 MEQ/L (21.0-32.0); BLOOD UREA NITROGEN 54 MG/DL (7-18); CHLORIDE 98 MEQ/L (98-107); GLOMERULAR FILTRATION RATE 9 ML/MIN (>89); MAGNESIUM 2.6 MG/DL (1.5-2.5); POTASSIUM 4.3 MEQ/L (3.5-5.1); SODIUM (NA) 136 MEQ/L (136-145)
[2017-01-26 09:05] LABS: ALKALINE PHOSPHATASE 91 U/L (45-117); ALT (GPT) 10 U/L (12-78); TOTAL BILIRUBIN ADULT 0.4 MG/DL (0.2-1.0)
[2017-01-26] MEDS: POLYETHYLENE GLYCOL 17 GM PKG PO SCH (10:30)
[2017-01-26] MEDS: BUDESONIDE-FORMOTEROL 160/4.5 MCG INHALER INH SCH ×2 (10:30→23:35)
[2017-01-26] MEDS: guaiFENesin E.R. 600 MG TAB PO SCH ×2 (10:30→23:31)
[2017-01-26] MEDS: TIOTROPIUM BROMIDE 18 MCG INH INH SCH (10:30)
[2017-01-26] MEDS: ARTIFICIAL TEARS OPTH SOLN 15 ML BTL EACH EYE SCH ×3 (10:31→18:00)
[2017-01-26] MEDS: CALCIUM ACETATE 667 MG CAP PO SCH ×3 (10:32→19:00)
[2017-01-26] MEDS: ASPIRIN 81 MG CHEW TAB CHEW SCH (10:32)
[2017-01-26] MEDS: DOCUSATE SODIUM 50 MG/SENNA 8.6 MG TAB PO SCH ×2 (10:32→23:35)
[2017-01-26] MEDS: INSULIN ASPART 1,000 UNITS/10 ML VIAL SQ SCH ×3 (10:33→17:00)
[2017-01-26] MEDS: CARVEDILOL 6.25 MG TAB PO SCH ×2 (10:34→23:31)
[2017-01-26] MEDS: HEPARIN SODIUM - SQ 10,000 UNITS/ML VIAL SQ SCH ×2 (10:35→23:35)
[2017-01-26] MEDS: SODIUM CHLORIDE 0.9% FLUSH 10 ML FLUSH IV FLUSH SCH ×2 (10:36→23:35)
[2017-01-26 12:00] VITALS: BP 120/65; PULSE 83; RESP 20; TEMP 98.6; O2SAT 96
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
--- NOTE | 2017-01-26 15:35 | HHI.PR ---
Subjective Remarks As per RN patient was given a shower patient denies cp/sob denies diarrhea, abdominal pain or nausea Objective Vitals Vital Signs Date Time Temp Pulse Resp B/P (MAP) Pulse Ox O2 Delivery O2 Flow Rate FiO2 01/26/17 08:00 98.7 80 20 113/60 (77) 95 01/26/17 04:00 98.7 66 20 114/62 (79) 97 01/26/17 00:00 97.0 70 18 118/60 (79) 98 01/25/17 21:20 Nasal Cannula 2.00 01/25/17 20:00 98.5 72 18 102/63 (76) 100 01/25/17 19:55 Nasal Cannula 2.00 01/25/17 16:00 98.7 86 20 107/62 (77) 97 I/O 01/25/17 01/25/17 01/25/17 01/26/17 01/26/17 01/26/17 07:00 15:00 23:00 07:00 15:00 23:00 Intake Total 480 ml 120 ml Output Total 800 ml 1250 ml Balance 480 ml -800 ml 120 ml -1250 ml Intake Oral 480 ml 120 ml Output Urine Total 1250 ml Hemodialysis 800 ml # Voids 2 1 # Bowel Movements 0 0 Result Diagram: 01/26/17 0740 01/26/17 0740 Imaging Last Impressions Chest X-Ray 01/12/17 0000 Signed Impressions: Service Date/Time: Thursday, January 12, 2017 11:15 - CONCLUSION: Dialysis catheter in good position. The lungs are clear. Marek Burnett MD FACR Carotid Artery Ultrasound 01/10/17 0000 Signed Impressions: Service Date/Time: Tuesday, January 10, 2017 12:25 - CONCLUSION: Negative examination for a hemodynamically significant carotid stenosis. Marek Burnett MD FACR Upper Extremity Ultrasound 01/05/17 0000 Signed Impressions: Service Date/Time: Thursday, January 05, 2017 18:56 - CONCLUSION: Normal examination. Ji Martinez MD Renal Biopsy CT 01/03/17 0000 Signed Impressions: Service Date/Time: Tuesday, January 03, 2017 13:28 - CONCLUSION: Uncomplicated CT guided biopsy. Ji Cedillo MD Central Venous Line 01/03/17 0000 Signed Impressions: Service Date/Time: Tuesday, January 03, 2017 00:00 - CONCLUSION: Uncomplicated catheter removal. Filiberto Rodarte MD Catheter Placement X-Ray 01/03/17 0000 Signed Impressions: Service Date/Time: Tuesday, January 03, 2017 14:27 - CONCLUSION: Uncomplicated PermaCath placement as above. Filiberto Rodarte MD Chest CT 12/08/16 0000 Signed Impressions: Service Date/Time: Thursday, December 08, 2016 14:02 - CONCLUSION: 1. Bilateral lower lobe consolidating airspace disease. 2. Small to moderate bilateral pleural effusions; larger on the left. 3. Cardiomegaly. 4. Endotracheal and nasogastric tubes in good position. Tutu Christianson MD Renal Ultrasound 12/07/16 0000 Signed Impressions: Service Date/Time: November 07:54 - CONCLUSION: Unremarkable and stable bilateral renal ultrasound. No evidence of hydronephrosis. Baron Medrano MD Objective Remarks AAOx3 Facial edema Lungs clear BL no edema in lower extremities Procedures Echo 12/07/2016 Mildly dilated left ventricle. Wall thickness is normal. The left ventricular systolic function is normal with an estimated ejection fraction is 45-50%. There is distinct regional wall motion abnormalities with akinetic apex and possibly clot at the apex. Consider repeating study with contrast/Definity to better asses apex The right ventriclar size is upper limits of normal. The left atrial size is moderately dilated. The right atrial size is moderately dilated. [id number] mitral valve regurgitation. There is mild tricuspid valve regurgitation. There is estimated mild pulmonary hypertension present (range 40-50 mmHg). The pulmonary valve is not well visualized. The inferior vena cava is dilated. There is less than 50% respiratory change in dimension of the inferior vena cava (abnormal). Medications and IVs Current Medications Medications (Trade) Dose Ordered Sig/Abby Route Start Time Stop Time Status Last Admin (D50w (Vial) Inj) 25 ml UNSCH PRN IV PUSH 12/07/16 00:45 (Zofran Inj) 4 mg Q6H PRN IV 12/07/16 00:45 (NS Flush) DAILY IVF 12/07/16 15:30 01/24/17 07:34 (NS Flush) UNSCH PRN IVF 12/07/16 15:30 (Peridex 0.12% Liq) 15 ml BID@08,20 MT 12/07/16 20:00 01/26/17 08:00 (Albuterol Neb) 2.5 mg Q2HR NEB PRN NEB 12/07/16 15:30 01/25/17 09:51 (NS Flush) 2 ml UNSCH PRN IV FLUSH 12/07/16 15:30 12/12/16 11:32 (NS Flush) 2 ml BID IV FLUSH 12/07/16 21:00 01/26/17 10:36 (Tylenol) 650 mg Q6H PRN PO 12/07/16 15:30 01/18/17 12:21 (Tears Naturale Opth Soln) 1 drop TID EACH EYE 12/07/16 18:00 01/26/17 14:33 Miscellaneous Information 1 Q361D XX 12/07/16 15:30 (Chlorhexidine 2% Cloth) Taper DAILY@04 TOP 12/08/16 04:00 12/04/17 03:59 01/01/17 03:31 (Chlorhexidine 2% Cloth) 3 pack UNSCH PRN TOP 12/07/16 15:30 (Milk Of Magnesia Liq) 30 ml Q12H PRN PO 12/07/16 15:30 01/18/17 15:48 (Senokot) 17.2 mg Q12H PRN PO 12/07/16 15:30 01/08/17 22:36 (Aspirin Chew) 81 mg DAILY CHEW 12/08/16 12:00 01/26/17 10:32 (Trandate Inj) 20 mg Q2H PRN IV 12/10/16 00:15 12/14/16 08:05 (Morphine Inj) 2 mg Q3H PRN IV PUSH 12/10/16 09:15 01/26/17 04:32 (Coreg) 6.25 mg Q12HR PO 12/10/16 10:00 01/26/17 10:34 (Phoslo) 1,334 mg TID PO 12/10/16 13:00 01/26/17 14:29 (Rocaltrol) 0.5 mcg DAILY PO 12/10/16 12:45 Future Hold 01/23/17 12:52 (Symbicort 160-4.5 Inh) 1 puff Q12HR INH 12/11/16 12:00 01/26/17 10:30 (Spiriva Inh) 18 mcg DAILY INH 12/11/16 12:00 01/26/17 10:30 (Norvasc) 10 mg DAILY PO 12/11/16 15:15 01/26/17 10:34 (Apresoline Inj) 20 mg Q4H PRN IV PUSH 12/11/16 15:15 12/18/16 04:26 (Catapres) 0.3 mg Q8H PO 12/12/16 08:00 01/26/17 10:32 Sodium Chloride 1,000 ml @ 0 mls/hr Q0M PRN IV 12/12/16 12:11 01/09/17 11:31 (Heparin Inj) 8,000 units UNSCH PRN IVF 12/12/16 12:15 01/06/17 10:58 Sodium Chloride 1,000 ml @ 200 mls/hr Q5H PRN IV 12/12/16 12:11 Sodium Chloride 1,000 ml @ 0 mls/hr Q0M PRN IV 12/12/16 12:11 12/12/16 17:04 (Mannitol Inj) 12.5 gm UNSCH PRN IV 12/12/16 12:15 (Albumin 25% Inj) 25 gm UNSCH PRN IV 12/12/16 12:15 01/23/17 08:23 (NS Flush) 5 ml UNSCH PRN IV FLUSH 12/12/16 12:15 12/26/16 10:34 (Heparin Inj) UNSCH PRN .XX 12/12/16 12:15 01/25/17 10:01 (Gentamicin (Dialysis) Inj) 20 mg UNSCH PRN IV 12/12/16 12:15 01/25/17 10:16 (Zofran Inj) 4 mg UNSCH PRN IV 12/12/16 12:15 (Tylenol) 650 mg UNSCH PRN PO 12/12/16 12:15 01/08/17 15:15 (Benadryl) 25 mg UNSCH PRN PO 12/12/16 12:15 (Nitrostat Sl) 0.4 mg UNSCH PRN SL 12/12/16 12:15 (Catapres) 0.1 mg UNSCH PRN PO 12/12/16 12:15 12/24/16 18:49 (Epogen Inj) 10,000 units UNSCH PRN IV 12/12/16 12:15 01/25/17 10:15 (Gelfoam 12 Mm/7 Mm Top) 1 foam UNSCH PRN TOP 12/12/16 12:15 (Apresoline) 50 mg Q8HR PO 12/26/16 14:00 01/26/17 14:28 (NS Flush) UNSCH PRN IVF 01/03/17 16:15 (Heparin Inj) UNSCH PRN IV FLUSH 01/03/17 16:15 (Heparin Inj) 5,000 units Q12HR SQ 01/07/17 09:00 01/26/17 10:35 (Mucinex Er) 600 mg BID PO 01/12/17 10:30 01/26/17 10:30 (Cepacol Extra Ha (Sugar Free)) 1 lozenge Q2HR PRN BUCCAL 01/13/17 13:00 (Flomax) 0.4 mg HS PO 01/14/17 21:00 01/25/17 21:19 (NovoLOG INJ) 8 units TIDAC SQ 01/15/17 12:30 01/26/17 10:33 (Levemir Inj) 37 units HS SQ 01/16/17 21:00 01/25/17 21:19 (Fleets Enema (Adult)) 133 ml UNSCH PRN RECTAL 01/18/17 18:30 01/22/17 11:57 (NovoLIN R SUPPLEMENTAL SCALE) 1 ACHS SQ 01/19/17 12:00 01/25/17 21:19 (Narcan Inj) 0.4 mg UNSCH PRN IV PUSH 01/21/17 13:00 (Dulcolax Supp) 10 mg DAILY PRN RECTAL 01/21/17 13:00 01/22/17 15:56 (Lactulose Liq) 30 ml DAILY PRN PO 01/21/17 13:00 (Sara-Colace) 1 tab BID PO 01/21/17 21:00 02/20/17 20:59 01/26/17 10:32 (Miralax) 17 gm DAILY PO 01/24/17 09:00 01/26/17 10:30 A/P Problem List: (1) Respiratory failure ICD Code: J96.90 - Respiratory failure, unspecified, unspecified whether with hypoxia or hypercapnia Status: Acute (2) Sepsis ICD Code: A41.9 - Sepsis, unspecified organism Status: Acute (3) Pneumonia ICD Code: J18.9 - Pneumonia, unspecified organism Status: Acute (4) left atrial thrombus Status: Acute (5) NSTEMI (non-ST elevated myocardial infarction) ICD Code: I21.4 - Non-ST elevation (NSTEMI) myocardial infarction Status: Resolved (6) ARF (acute renal failure) ICD Code: N17.9 - ARF (acute renal failure) Status: Acute (7) Diabetes mellitus ICD Code: E11.9 - Diabetes mellitus Status: Chronic (8) Morbid obesity ICD Code: E66.01 - Morbid (severe) obesity due to excess calories Status: Acute (9) Severe chronic obstructive pulmonary disease ICD Code: J44.9 - Chronic obstructive pulmonary disease, unspecified Status: Acute (10) CKD (chronic kidney disease) stage 4, GFR 15-29 ml/min ICD Code: N18.4 - Chronic kidney disease, stage 4 (severe) Status: Acute Assessment and Plan Mr. Mehta is a 66-year-old male with medical history significant for hypertension and diabetes and CVA who presented to the hospital with a chief complaint of shortness of breath and chest pain. The patient was diagnosed with NSTEMI. Echo was performed which was concerning for thrombus, but study was limited and a repeat was suggested. He has history of chronic kidney disease but worsening of his creatinine was noted. He was seen and evaluated by nephrology who started the patient on hemodialysis. CKD stage IV with GFR 8 Acute renal failure progressing to ESRD - nephrology on board, started on hemodialysis TTHSa - PermaCath placed. Vascular surgery unable to find adequate vein for AVF. Will await nephrology further recommendations. - Kidney biopsy on 01/03/2017 --> diffuse and nodular diabetic glomerulosclerosis, segmental and global glomerular sclerosis, interstitial fibrosis and tubular atrophy severe. - follow UO - monitor BMP, am labs ordered S/P acute respiratory failure secondary to bilateral lower lobe pneumonias/ community acquired - resolved - Urine antigens, sputum culture, blood cultures were all negative. S/p abx treatment course with azithromycin and Rocephin. - Chest x-ray 01/12 clear and labs unremarkable for acute process - Continue guaifenesin and Acapella for cough - O2 if needed to keep sats >92%. - monitor respiratory status Hypercalcemia - Hold calcitriol - Hypercalcemia resolving - continue to hold Calcitriol. COPD - Continue Symbicort and Spiriva - Continue albuterol neb. - Not on exacerbation. NSTEMI Hypertension - Echo performed December 07 showed distinct regional wall abnormalities with a possible clot in the apex. - echo with Definity contrast did not appear to show any clots in LV. - Cardiology was consulted, stable from a cardiac standpoint and recommended continued aggressive risk factor modification - ASA 81 mg daily. Coreg 6.25 mg BID. Norvasc 10 mg daily. Clonidine to 0.3 mg po TID and hydralazine 50 mg by mouth daily 8 hour Diabetes mellitus - Continue Levemir 37 units QHS and sliding scale insulin. - pre-meal insulin 8 units TIDAC - Monitor Accu-Cheks and adjust regimen as indicated - Blood sugars stable BPH - continue Tamsulosin. Stable. Deconditioning: PT recommends SNF, generalized weakness likely due to prolonged hospitalization and multiple medical conditions as above. - Continue PT Sunday through Sunday while admitted Constipation - Pericolace BID - add Miralax daily - monitor for BM Heparin SQ for DVT prophylaxis. Discharge Planning Patient will need hemodialysis, not a [place] citizen. Not a safe discharge. Discussed with CM. 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
--- NOTE | 2017-01-26 15:49 | HHI.NPPN ---
Subjective History of Present Illness 66-year-old male with past medical history of hypertension, diabetes mellitus, history of cerebrovascular accident with left-sided weakness, hyperlipidemia, bronchial asthma, chronic kidney disease who was admitted because of shortness of breath and chest pain. I was called to see the patient because of elevated BUN and creatinine. The patient was diagnosed here with non-ST elevation [place]. The patient has history of chronic kidney disease. Additional Remarks Patient is alert, not in distress, no complain, no SOB. Objective Data Data Vital Signs Date Time Temp Pulse Resp B/P (MAP) Pulse Ox O2 Delivery O2 Flow Rate FiO2 01/26/17 08:00 98.7 80 20 113/60 (77) 95 01/26/17 04:00 98.7 66 20 114/62 (79) 97 01/26/17 00:00 97.0 70 18 118/60 (79) 98 01/25/17 21:20 Nasal Cannula 2.00 01/25/17 20:00 98.5 72 18 102/63 (76) 100 01/25/17 19:55 Nasal Cannula 2.00 01/25/17 16:00 98.7 86 20 107/62 (77) 97 -: 01/26/17 0740 01/26/17 0740 Physical Exam General Appearance: No Acute Distress, Comfortable Eyes Eye Exam: Pupils Equal Throat Throat Exam: Oral Mucosa [place] & Moist Neck Neck Exam: Neck Supple Pulmonary Resp Exam: No Distress, Rhonchi, Decreased Bases, Diminished Breath Sounds Cardiology CV Exam: Regular, Normal Sinus Rhythm Gastrointestinal/Abdomen GI Exam: Soft, Non-Tender, Bowel Sounds Present Extremeties Extremities Exam: Moderate Edema Neurologic Neuro Exam: Alert, Awake Psychiatric Psych Exam: Appropriate Responses Assessment/Plan Assessment Summary: WILLIE/Acute Renal Failure, CHF, CKD Stage IV Problem List: (1) NSTEMI (non-ST elevated myocardial infarction) ICD Codes: I21.4 - Non-ST elevation (NSTEMI) myocardial infarction Status: Resolved (2) Diabetes mellitus ICD Codes: E11.9 - Diabetes mellitus Status: Chronic (3) Asthma ICD Codes: J45.909 - Asthma Status: Chronic (4) Shortness of breath ICD Codes: R06.02 - Shortness of breath Status: Acute (5) Leg edema ICD Codes: R60.0 - Leg edema Status: Acute (6) Hypertension ICD Codes: I10 - Hypertension Status: Chronic Plan Patient has been non oliguric, Creatinine is still elevated. K is normal, Follow urine out put and BMP. Has proteinuria, serology negative. Added Phoslo as Po4 is elevated and calcitriol as Calcium is low. BP is better. Follow urine out put and watch for any renal recovery. Got the PermCath , has poor flow from Vascath. The Kidney Biopsy showing Diabetic and Hypertensive renal disease. Case management notes seen. HD to continue 3 times a week. Awaiting arrangements for out patient HD. HD to continue as schedule. 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
[2017-01-26 16:00] VITALS: BP 108/63; PULSE 67; RESP 20; TEMP 98.4; O2SAT 97
[2017-01-26 20:00] VITALS: BP 111/66; PULSE 67; RESP 19; TEMP 97.7; O2SAT 98
[2017-01-26] MEDS: INSULIN DETEMIR 100 UNITS/ML VIAL SQ SCH (23:31)
[2017-01-26] MEDS: TAMSULOSIN HCL 0.4 MG CAP PO SCH (23:31)
[2017-01-27] VITALS (7 sets, daily range): BP systolic 100–142; BP diastolic 56–72; PULSE 58–97; RESP 16–20; TEMP 97–99.9; O2SAT 96–99
[2017-01-27] MEDS: CHLORHEXIDINE GLUCONATE 2 % 1 PACK (2 CLOTHS) TOP SCH (03:49)
[2017-01-27] MEDS: hydrALAZINE HCL 50 MG TAB PO SCH ×3 (06:55→21:01)
[2017-01-27] MEDS: INSULIN NovoLIN REGULAR SUPPLEMENTAL SCALE SQ SCH ×4 (08:00→21:05)
[2017-01-27] MEDS: INSULIN ASPART 1,000 UNITS/10 ML VIAL SQ SCH ×3 (08:00→17:00)
[2017-01-27] MEDS: cloNIDine HCL 0.3 MG TAB PO SCH ×2 (08:00→16:00)
[2017-01-27] MEDS: ARTIFICIAL TEARS OPTH SOLN 15 ML BTL EACH EYE SCH ×3 (09:00→17:49)
[2017-01-27] MEDS: CARVEDILOL 6.25 MG TAB PO SCH ×2 (09:00→20:59)
[2017-01-27] MEDS: CALCIUM ACETATE 667 MG CAP PO SCH ×3 (09:00→17:49)
[2017-01-27] MEDS: DOCUSATE SODIUM 50 MG/SENNA 8.6 MG TAB PO SCH ×2 (09:00→21:00)
[2017-01-27] MEDS: POLYETHYLENE GLYCOL 17 GM PKG PO SCH (09:00)
--- NOTE | 2017-01-27 10:36 | HHI.NPPN ---
Subjective History of Present Illness 66-year-old male with past medical history of hypertension, diabetes mellitus, history of cerebrovascular accident with left-sided weakness, hyperlipidemia, bronchial asthma, chronic kidney disease who was admitted because of shortness of breath and chest pain. I was called to see the patient because of elevated BUN and creatinine. The patient was diagnosed here with non-ST elevation [place]. The patient has history of chronic kidney disease. Additional Remarks No acute complaints, seen on dialysis Objective Data Data Vital Signs Date Time Temp Pulse Resp B/P (MAP) Pulse Ox O2 Delivery O2 Flow Rate FiO2 01/27/17 08:00 97.0 60 20 100/56 (71) 99 01/27/17 04:00 97.5 58 16 107/60 (76) 96 01/27/17 00:00 97.7 60 19 129/67 (87) 99 01/26/17 23:36 Nasal Cannula 2.00 01/26/17 21:46 Nasal Cannula 2.00 01/26/17 20:00 97.7 67 19 111/66 (81) 98 01/26/17 16:00 98.4 67 20 108/63 (78) 97 01/26/17 12:00 98.6 83 20 120/65 (83) 96 -: 01/26/17 0740 01/26/17 0740 Physical Exam General Appearance: No Acute Distress, Comfortable Eyes Eye Exam: Pupils Equal Throat Throat Exam: Oral Mucosa [place] & Moist Neck Neck Exam: Neck Supple Pulmonary Resp Exam: No Distress, Rhonchi, Decreased Bases, Diminished Breath Sounds Cardiology CV Exam: Regular, Normal Sinus Rhythm Gastrointestinal/Abdomen GI Exam: Soft, Non-Tender, Bowel Sounds Present Extremeties Extremities Exam: Moderate Edema Neurologic Neuro Exam: Alert, Awake Psychiatric Psych Exam: Appropriate Responses Assessment/Plan Assessment Summary: WILLIE/Acute Renal Failure, CHF, CKD Stage IV Problem List: (1) NSTEMI (non-ST elevated myocardial infarction) ICD Codes: I21.4 - Non-ST elevation (NSTEMI) myocardial infarction Status: Resolved (2) Diabetes mellitus ICD Codes: E11.9 - Diabetes mellitus Status: Chronic (3) Asthma ICD Codes: J45.909 - Asthma Status: Chronic (4) Shortness of breath ICD Codes: R06.02 - Shortness of breath Status: Acute (5) Leg edema ICD Codes: R60.0 - Leg edema Status: Acute (6) Hypertension ICD Codes: I10 - Hypertension Status: Chronic Plan Patient has been non oliguric, Creatinine is still elevated. K is normal, Follow urine out put and BMP. Has proteinuria, serology negative. Added Phoslo as Po4 is elevated and calcitriol as Calcium is low. BP is better. Follow urine out put and watch for any renal recovery. Got the PermCath , has poor flow from Vascath. The Kidney Biopsy showing Diabetic and Hypertensive renal disease. Case management notes seen. HD to continue 3 times a week. Seen on HD today, continue TTS HD. Poor catheter flow - will order for HD catheter exchange Sunday, NPO at midnight Sunday. Seen with [facility] for AV access yesterday - no access planned due to small vessels. May consider for evaluation eventually as an outpatient.... Awaiting arrangements for out patient HD. Problem Qualifiers (1) Diabetes mellitus: Qualified Codes: E11.22 - Type 2 diabetes mellitus with diabetic chronic kidney disease; N18.4 - Chronic kidney disease, stage 4 (severe); Z79.4 - senior care (current) use of insulin (2) Hypertension: Qualified Codes: I10 - Essential (primary) hypertension Reed Prescott MD Jan 27, 2017 10:36
[2017-01-27] MEDS: guaiFENesin E.R. 600 MG TAB PO SCH ×2 (13:50→20:59)
[2017-01-27] MEDS: ASPIRIN 81 MG CHEW TAB CHEW SCH (13:50)
[2017-01-27] MEDS: TIOTROPIUM BROMIDE 18 MCG INH INH SCH (13:54)
[2017-01-27] MEDS: BUDESONIDE-FORMOTEROL 160/4.5 MCG INHALER INH SCH ×2 (13:54→21:08)
[2017-01-27] MEDS: SODIUM CHLORIDE 0.9% FLUSH 10 ML FLUSH IVF SCH (13:57)
[2017-01-27] MEDS: SODIUM CHLORIDE 0.9% FLUSH 10 ML FLUSH IV FLUSH SCH ×2 (13:57→21:00)
[2017-01-27] MEDS: HEPARIN SODIUM - SQ 10,000 UNITS/ML VIAL SQ SCH ×2 (13:58→21:00)
--- NOTE | 2017-01-27 15:18 | HHI.PR ---
Subjective Remarks Follow up for ESRD on HD. The patient is seen s/p dialysis today, says he feels weak and tired. He states he usually feels this way after dialysis. He denies any chest pain, palpitations, or shortness of breath. Denies any pains. Denies any other medical complaints at this time. Objective Vitals Vital Signs Date Time Temp Pulse Resp B/P (MAP) Pulse Ox O2 Delivery O2 Flow Rate FiO2 01/27/17 13:50 98.6 97 20 132/69 (90) 97 01/27/17 11:05 Nasal Cannula 2.00 01/27/17 08:00 97.0 60 20 100/56 (71) 99 01/27/17 04:00 97.5 58 16 107/60 (76) 96 01/27/17 00:00 97.7 60 19 129/67 (87) 99 01/26/17 23:36 Nasal Cannula 2.00 01/26/17 21:46 Nasal Cannula 2.00 01/26/17 20:00 97.7 67 19 111/66 (81) 98 01/26/17 16:00 98.4 67 20 108/63 (78) 97 I/O 01/26/17 01/26/17 01/26/17 01/27/17 01/27/17 01/27/17 07:00 15:00 23:00 07:00 15:00 23:00 Intake Total 480 ml 100 ml Output Total 1250 ml Balance -1250 ml 480 ml 100 ml Intake Oral 480 ml 100 ml Output Urine Total 1250 ml # Voids 2 # Bowel Movements 1 Result Diagram: 01/26/17 0740 01/26/17 0740 Imaging Last Impressions Chest X-Ray 01/12/17 0000 Signed Impressions: Service Date/Time: Thursday, January 12, 2017 11:15 - CONCLUSION: Dialysis catheter in good position. The lungs are clear. Marek Burnett MD FACR Carotid Artery Ultrasound 01/10/17 0000 Signed Impressions: Service Date/Time: Tuesday, January 10, 2017 12:25 - CONCLUSION: Negative examination for a hemodynamically significant carotid stenosis. Marek Burnett MD FACR Upper Extremity Ultrasound 01/05/17 0000 Signed Impressions: Service Date/Time: Thursday, January 05, 2017 18:56 - CONCLUSION: Normal examination. Ji Martinez MD Renal Biopsy CT 01/03/17 Signed Impressions: Service Date/Time: Tuesday, January 03, 2017 13:28 - CONCLUSION: Uncomplicated CT guided biopsy. Ji Cedillo MD Central Venous Line 01/03/17 Signed Impressions: Service Date/Time: Tuesday, January 03, 2017 00:00 - CONCLUSION: Uncomplicated catheter removal. Filiberto Rodarte MD Catheter Placement X-Ray 01/03/17 Signed Impressions: Service Date/Time: Tuesday, January 03, 2017 14:27 - CONCLUSION: Uncomplicated PermaCath placement as above. Filiberto Rodarte MD Chest CT 12/08/16 Signed Impressions: Service Date/Time: Thursday, December 08, 2016 14:02 - CONCLUSION: 1. Bilateral lower lobe consolidating airspace disease. 2. Small to moderate bilateral pleural effusions; larger on the left. 3. Cardiomegaly. 4. Endotracheal and nasogastric tubes in good position. Tutu Christianson MD Renal Ultrasound 12/07/16 Signed Impressions: Service Date/Time: November 07:54 - CONCLUSION: Unremarkable and stable bilateral renal ultrasound. No evidence of hydronephrosis. Baron Medrano MD Objective Remarks GENERAL: Well-nourished, well-developed male patient in [facility]. SKIN: Warm and dry. No rash. Cath right upper chest. HEENT: Normocephalic. Atraumatic. Pupils equal and round. Mucous membranes pink and moist. CARDIOVASCULAR: Regular rate and rhythm. S1, S2 noted. No murmur appreciated. RESPIRATORY: No accessory muscle use. Clear to auscultation. Breath sounds equal bilaterally. GASTROINTESTINAL: Abdomen soft, non-tender, nondistended. Normoactive bowel sounds x4. MUSCULOSKELETAL: No obvious deformities. Extremities without clubbing, cyanosis , or edema. NEUROLOGICAL: Awake and alert. No obvious cranial nerve deficits. Motor grossly within normal limits. Normal speech. PSYCHIATRIC: Appropriate mood and affect; insight and judgment normal. Procedures Echo 12/07/2016 Mildly dilated left ventricle. Wall thickness is normal. The left ventricular systolic function is normal with an estimated ejection fraction is 45-50%. There is distinct regional wall motion abnormalities with akinetic apex and possibly clot at the apex. Consider repeating study with contrast/Definity to better asses apex The right ventriclar size is upper limits of normal. The left atrial size is moderately dilated. The right atrial size is moderately dilated. [id number] mitral valve regurgitation. There is mild tricuspid valve regurgitation. There is estimated mild pulmonary hypertension present (range 40-50 mmHg). The pulmonary valve is not well visualized. The inferior vena cava is dilated. There is less than 50% respiratory change in dimension of the inferior vena cava (abnormal). Medications and IVs Current Medications Medications (Trade) Dose Ordered Sig/Abby Route Start Time Stop Time Status Last Admin (D50w (Vial) Inj) 25 ml UNSCH PRN IV PUSH 12/07/16 00:45 (Zofran Inj) 4 mg Q6H PRN IV 12/07/16 00:45 (NS Flush) DAILY IVF 12/07/16 15:30 01/27/17 13:57 (NS Flush) UNSCH PRN IVF 12/07/16 15:30 (Peridex 0.12% Liq) 15 ml BID@08,20 MT 12/07/16 20:00 01/26/17 08:00 (Albuterol Neb) 2.5 mg Q2HR NEB PRN NEB 12/07/16 15:30 01/25/17 09:51 (NS Flush) 2 ml UNSCH PRN IV FLUSH 12/07/16 15:30 12/12/16 11:32 (NS Flush) 2 ml BID IV FLUSH 12/07/16 21:00 01/27/17 13:57 (Tylenol) 650 mg Q6H PRN PO 12/07/16 15:30 01/18/17 12:21 (Tears Naturale Opth Soln) 1 drop TID EACH EYE 12/07/16 18:00 01/27/17 13:00 Miscellaneous Information 1 Q361D XX 12/07/16 15:30 (Chlorhexidine 2% Cloth) Taper DAILY@04 TOP 12/08/16 04:00 12/04/17 03:59 01/01/17 03:31 (Chlorhexidine 2% Cloth) 3 pack UNSCH PRN TOP 12/07/16 15:30 (Milk Of Magnesia Liq) 30 ml Q12H PRN PO 12/07/16 15:30 01/18/17 15:48 (Senokot) 17.2 mg Q12H PRN PO 12/07/16 15:30 01/08/17 22:36 (Aspirin Chew) 81 mg DAILY CHEW 12/08/16 12:00 01/27/17 13:50 (Trandate Inj) 20 mg Q2H PRN IV 12/10/16 00:15 12/14/16 08:05 (Morphine Inj) 2 mg Q3H PRN IV PUSH 12/10/16 09:15 01/26/17 04:32 (Coreg) 6.25 mg Q12HR PO 12/10/16 10:00 01/26/17 23:31 (Phoslo) 1,334 mg TID PO 12/10/16 13:00 01/27/17 13:50 (Rocaltrol) 0.5 mcg DAILY PO 12/10/16 12:45 Future Hold 01/23/17 12:52 (Symbicort 160-4.5 Inh) 1 puff Q12HR INH 12/11/16 12:00 01/27/17 13:54 (Spiriva Inh) 18 mcg DAILY INH 12/11/16 12:00 01/27/17 13:54 (Norvasc) 10 mg DAILY PO 12/11/16 15:15 01/26/17 10:34 (Apresoline Inj) 20 mg Q4H PRN IV PUSH 12/11/16 15:15 12/18/16 04:26 (Catapres) 0.3 mg Q8H PO 12/12/16 08:00 01/26/17 23:31 Sodium Chloride 1,000 ml @ 0 mls/hr Q0M PRN IV 12/12/16 12:11 01/09/17 11:31 (Heparin Inj) 8,000 units UNSCH PRN IVF 12/12/16 12:15 01/06/17 10:58 Sodium Chloride 1,000 ml @ 200 mls/hr Q5H PRN IV 12/12/16 12:11 Sodium Chloride 1,000 ml @ 0 mls/hr Q0M PRN IV 12/12/16 12:11 12/12/16 17:04 (Mannitol Inj) 12.5 gm UNSCH PRN IV 12/12/16 12:15 (Albumin 25% Inj) 25 gm UNSCH PRN IV 12/12/16 12:15 01/23/17 08:23 (NS Flush) 5 ml UNSCH PRN IV FLUSH 12/12/16 12:15 12/26/16 10:34 (Heparin Inj) UNSCH PRN .XX 12/12/16 12:15 01/25/17 10:01 (Gentamicin (Dialysis) Inj) 20 mg UNSCH PRN IV 12/12/16 12:15 01/25/17 10:16 (Zofran Inj) 4 mg UNSCH PRN IV 12/12/16 12:15 (Tylenol) 650 mg UNSCH PRN PO 12/12/16 12:15 01/08/17 15:15 (Benadryl) 25 mg UNSCH PRN PO 12/12/16 12:15 (Nitrostat Sl) 0.4 mg UNSCH PRN SL 12/12/16 12:15 (Catapres) 0.1 mg UNSCH PRN PO 12/12/16 12:15 12/24/16 18:49 (Epogen Inj) 10,000 units UNSCH PRN IV 12/12/16 12:15 01/25/17 10:15 (Gelfoam 12 Mm/7 Mm Top) 1 foam UNSCH PRN TOP 12/12/16 12:15 (Apresoline) 50 mg Q8HR PO 12/26/16 14:00 01/27/17 06:55 (NS Flush) UNSCH PRN IVF 01/03/17 16:15 (Heparin Inj) UNSCH PRN IV FLUSH 01/03/17 16:15 (Heparin Inj) 5,000 units Q12HR SQ 01/07/17 09:00 01/27/17 13:58 (Mucinex Er) 600 mg BID PO 01/12/17 10:30 01/27/17 13:50 (Cepacol Extra Ha (Sugar Free)) 1 lozenge Q2HR PRN BUCCAL 01/13/17 13:00 (Flomax) 0.4 mg HS PO 01/14/17 21:00 01/26/17 23:31 (NovoLOG INJ) 8 units TIDAC SQ 01/15/17 12:30 01/27/17 12:00 (Levemir Inj) 37 units HS SQ 01/16/17 21:00 01/26/17 23:31 (Fleets Enema (Adult)) 133 ml UNSCH PRN RECTAL 01/18/17 18:30 01/22/17 11:57 (NovoLIN R SUPPLEMENTAL SCALE) 1 ACHS SQ 01/19/17 12:00 01/26/17 23:31 (Narcan Inj) 0.4 mg UNSCH PRN IV PUSH 01/21/17 13:00 (Dulcolax Supp) 10 mg DAILY PRN RECTAL 01/21/17 13:00 01/22/17 15:56 (Lactulose Liq) 30 ml DAILY PRN PO 01/21/17 13:00 (Sara-Colace) 1 tab BID PO 01/21/17 21:00 02/20/17 20:59 01/26/17 23:35 (Miralax) 17 gm DAILY PO 01/24/17 09:00 01/26/17 10:30 A/P Problem List: (1) Respiratory failure ICD Code: J96.90 - Respiratory failure, unspecified, unspecified whether with hypoxia or hypercapnia Status: Acute (2) Sepsis ICD Code: A41.9 - Sepsis, unspecified organism Status: Acute (3) Pneumonia ICD Code: J18.9 - Pneumonia, unspecified organism Status: Acute (4) left atrial thrombus Status: Acute (5) NSTEMI (non-ST elevated myocardial infarction) ICD Code: I21.4 - Non-ST elevation (NSTEMI) myocardial infarction Status: Resolved (6) ARF (acute renal failure) ICD Code: N17.9 - ARF (acute renal failure) Status: Acute (7) Diabetes mellitus ICD Code: E11.9 - Diabetes mellitus Status: Chronic (8) Morbid obesity ICD Code: E66.01 - Morbid (severe) obesity due to excess calories Status: Acute (9) Severe chronic obstructive pulmonary disease ICD Code: J44.9 - Chronic obstructive pulmonary disease, unspecified Status: Acute (10) CKD (chronic kidney disease) stage 4, GFR 15-29 ml/min ICD Code: N18.4 - Chronic kidney disease, stage 4 (severe) Status: Acute Assessment and Plan 66-year-old male with medical history significant for HTN, DM, CVA who presented to the hospital with a chief complaint of shortness of breath and chest pain. The patient was diagnosed with NSTEMI. Echo was performed which was concerning for thrombus, but study was limited and a repeat was suggested. He has history of chronic kidney disease but worsening of his creatinine was noted. He was seen and evaluated by nephrology who started the patient on hemodialysis. CKD stage IV with GFR 8 Acute renal failure progressing to ESRD - nephrology on board, appreciate recommendations, started on hemodialysis TTHSa - PermaCath placed. Vascular surgery unable to find adequate vein for AVF. - Kidney biopsy on 01/03/2017 --> diffuse and nodular diabetic glomerulosclerosis, segmental and global glomerular sclerosis, interstitial fibrosis and tubular atrophy severe. - follow urine output - monitor BMP - IR consulted to evaluate HD catheter and possible exchange S/P acute respiratory failure secondary to bilateral lower lobe pneumonias/ community acquired - resolved - Urine antigens, sputum culture, blood cultures were all negative. S/p abx treatment course with azithromycin and Rocephin. - Chest x-ray 01/12 clear and labs unremarkable for acute process - Continue guaifenesin and Acapella for cough - O2 if needed to keep sats >92%. - monitor respiratory status Hypercalcemia - Hold calcitriol - Hypercalcemia resolving - continue to hold Calcitriol. COPD - Continue Symbicort and Spiriva - Continue albuterol neb. - Not on exacerbation. NSTEMI Hypertension - Echo performed December 07 showed distinct regional wall abnormalities with a possible clot in the apex. - echo with Definity contrast did not appear to show any clots in LV. - Cardiology was consulted, stable from a cardiac standpoint and recommended continued aggressive risk factor modification - ASA 81 mg daily. Coreg 6.25 mg BID. Norvasc 10 mg daily. Clonidine to 0.3 mg po TID and hydralazine 50 mg by mouth daily 8 hour Diabetes mellitus - Continue Levemir 37 units QHS and sliding scale insulin. - pre-meal insulin 8 units TIDAC - Monitor Accu-Cheks and adjust regimen as indicated - Blood sugars stable BPH - continue Tamsulosin. Stable. Deconditioning: PT recommends SNF, generalized weakness likely due to prolonged hospitalization and multiple medical conditions as above. - Continue PT Sunday through Sunday while admitted Constipation - Pericolace BID - add Miralax daily - monitor for BM Heparin SQ for DVT prophylaxis. Discharge Planning Patient will need hemodialysis, not a [place] citizen. Not a safe discharge. Problem Qualifiers (1) Respiratory failure: Qualified Codes: J96.00 - Acute respiratory failure, unspecified whether with hypoxia or hypercapnia (2) Sepsis: (3) Pneumonia: (4) ARF (acute renal failure): (5) Diabetes mellitus: Qualified Codes: E11.22 - Type 2 diabetes mellitus with diabetic chronic kidney disease; N18.4 - Chronic kidney disease, stage 4 (severe); Z79.4 - prison (current) use of insulin Daphne Delcid PA-C Jan 27, 2017 3:18 pm
[2017-01-27] MEDS: CHLORHEXIDINE 0.12% (ORAL KIT) 15 ML CUP MT SCH (20:00)
[2017-01-27] MEDS: ACETAMINOPHEN 325 MG TAB PO PRN (21:01)
[2017-01-27] MEDS: TAMSULOSIN HCL 0.4 MG CAP PO SCH (21:01)
[2017-01-27] MEDS: INSULIN DETEMIR 100 UNITS/ML VIAL SQ SCH (21:02)
[2017-01-27] MEDS: RESP: ALBUTEROL 2.5 MG/3 ML NEB (PRN) NEB (21:57)
[2017-01-28] VITALS (7 sets, daily range): BP systolic 101–146; BP diastolic 65–78; PULSE 79–91; RESP 18–20; TEMP 98.2–99; O2SAT 96–99
[2017-01-28] MEDS: diphenhydrAMINE HCL 25 MG CAP PO PRN (00:39)
[2017-01-28] MEDS: cloNIDine HCL 0.3 MG TAB PO SCH ×3 (00:39→17:26)
[2017-01-28] MEDS: CHLORHEXIDINE GLUCONATE 2 % 1 PACK (2 CLOTHS) TOP SCH (03:46)
[2017-01-28] MEDS: hydrALAZINE HCL 50 MG TAB PO SCH ×3 (05:04→21:27)
[2017-01-28] MEDS: INSULIN ASPART 1,000 UNITS/10 ML VIAL SQ SCH ×3 (08:00→17:00)
[2017-01-28] MEDS: INSULIN NovoLIN REGULAR SUPPLEMENTAL SCALE SQ SCH ×4 (08:00→21:37)
[2017-01-28] MEDS: DOCUSATE SODIUM 50 MG/SENNA 8.6 MG TAB PO SCH ×2 (08:22→21:27)
[2017-01-28] MEDS: CALCIUM ACETATE 667 MG CAP PO SCH ×3 (08:22→17:26)
[2017-01-28] MEDS: ASPIRIN 81 MG CHEW TAB CHEW SCH (08:22)
[2017-01-28] MEDS: guaiFENesin E.R. 600 MG TAB PO SCH ×2 (08:22→21:27)
[2017-01-28] MEDS: CARVEDILOL 6.25 MG TAB PO SCH ×2 (08:22→21:27)
[2017-01-28] MEDS: HEPARIN SODIUM - SQ 10,000 UNITS/ML VIAL SQ SCH ×2 (08:23→21:27)
[2017-01-28] MEDS: SODIUM CHLORIDE 0.9% FLUSH 10 ML FLUSH IVF SCH (08:30)
[2017-01-28] MEDS: SODIUM CHLORIDE 0.9% FLUSH 10 ML FLUSH IV FLUSH SCH ×2 (08:30→21:29)
[2017-01-28] MEDS: ARTIFICIAL TEARS OPTH SOLN 15 ML BTL EACH EYE SCH ×3 (08:30→17:26)
[2017-01-28] MEDS: POLYETHYLENE GLYCOL 17 GM PKG PO SCH (08:31)
[2017-01-28] MEDS: TIOTROPIUM BROMIDE 18 MCG INH INH SCH (09:00)
[2017-01-28] MEDS: BUDESONIDE-FORMOTEROL 160/4.5 MCG INHALER INH SCH ×2 (09:00→21:32)
--- NOTE | 2017-01-28 12:13 | HHI.PR ---
Subjective Remarks patient states he feels slightly short of breath denies cp denies abdominal pain/diarrhea Objective Vitals Vital Signs Date Time Temp Pulse Resp B/P (MAP) Pulse Ox O2 Delivery O2 Flow Rate FiO2 01/28/17 08:00 98.2 83 20 101/67 (78) 99 01/28/17 04:00 98.2 79 18 124/65 (84) 99 01/28/17 04:00 Nasal Cannula 2.00 01/28/17 00:00 98.2 79 18 124/65 (84) 99 01/28/17 00:00 Nasal Cannula 2.00 01/27/17 23:05 20 01/27/17 21:59 98 Nasal Cannula 2.00 01/27/17 21:05 Nasal Cannula 2.00 01/27/17 20:00 99.9 80 18 142/72 (95) 98 01/27/17 16:00 99.8 96 20 116/65 (82) 98 01/27/17 13:50 98.6 97 20 132/69 (90) 97 I/O 01/27/17 01/27/17 01/27/17 01/28/17 01/28/17 01/28/17 07:00 15:00 23:00 07:00 15:00 23:00 Intake Total 100 ml Balance 100 ml Intake Oral 100 ml # Voids 2 Result Diagram: 01/26/1740 01/26/17 0740 Imaging Last Impressions Chest X-Ray 01/12/17 0000 Signed Impressions: Service Date/Time: Thursday, January 12, 2017 11:15 - CONCLUSION: Dialysis catheter in good position. The lungs are clear. Marek Burnett MD FACR Carotid Artery Ultrasound 01/10/17 0000 Signed Impressions: Service Date/Time: Tuesday, January 10, 2017 12:25 - CONCLUSION: Negative examination for a hemodynamically significant carotid stenosis. Marek Burnett MD FACR Upper Extremity Ultrasound 01/05/17 0000 Signed Impressions: Service Date/Time: Thursday, January 05, 2017 18:56 - CONCLUSION: Normal examination. Ji Martinez MD Renal Biopsy CT 01/03/17 0000 Signed Impressions: Service Date/Time: Tuesday, January 03, 2017 13:28 - CONCLUSION: Uncomplicated CT guided biopsy. Ji Cedillo MD Central Venous Line 01/03/17 0000 Signed Impressions: Service Date/Time: Tuesday, January 03, 2017 00:00 - CONCLUSION: Uncomplicated catheter removal. Filiberto Rodarte MD Catheter Placement X-Ray 01/03/17 0000 Signed Impressions: Service Date/Time: Tuesday, January 03, 2017 14:27 - CONCLUSION: Uncomplicated PermaCath placement as above. Filiberto Rodarte MD Chest CT 12/08/16 0000 Signed Impressions: Service Date/Time: Thursday, December 08, 2016 14:02 - CONCLUSION: 1. Bilateral lower lobe consolidating airspace disease. 2. Small to moderate bilateral pleural effusions; larger on the left. 3. Cardiomegaly. 4. Endotracheal and nasogastric tubes in good position. Tutu Christianson MD Renal Ultrasound 12/07/16 0000 Signed Impressions: Service Date/Time: November 07:54 - CONCLUSION: Unremarkable and stable bilateral renal ultrasound. No evidence of hydronephrosis. Baron Medrano MD Objective Remarks AAOx3 Facial edema Mild scattered wheezing BL no edema in lower extremities Procedures Echo 12/07/2016 Mildly dilated left ventricle. Wall thickness is normal. The left ventricular systolic function is normal with an estimated ejection fraction is 45-50%. There is distinct regional wall motion abnormalities with akinetic apex and possibly clot at the apex. Consider repeating study with contrast/Definity to better asses apex The right ventriclar size is upper limits of normal. The left atrial size is moderately dilated. The right atrial size is moderately dilated. [id number] mitral valve regurgitation. There is mild tricuspid valve regurgitation. There is estimated mild pulmonary hypertension present (range 40-50 mmHg). The pulmonary valve is not well visualized. The inferior vena cava is dilated. There is less than 50% respiratory change in dimension of the inferior vena cava (abnormal). Medications and IVs Current Medications Medications (Trade) Dose Ordered Sig/Abby Route Start Time Stop Time Status Last Admin (D50w (Vial) Inj) 25 ml UNSCH PRN IV PUSH 12/07/16 00:45 (Zofran Inj) 4 mg Q6H PRN IV 12/07/16 00:45 (NS Flush) DAILY IVF 12/07/16 15:30 01/28/17 08:30 (NS Flush) UNSCH PRN IVF 12/07/16 15:30 (Peridex 0.12% Liq) 15 ml BID@08,20 MT 12/07/16 20:00 01/26/17 08:00 (Albuterol Neb) 2.5 mg Q2HR NEB PRN NEB 12/07/16 15:30 01/27/17 21:57 (NS Flush) 2 ml UNSCH PRN IV FLUSH 12/07/16 15:30 12/12/16 11:32 (NS Flush) 2 ml BID IV FLUSH 12/07/16 21:00 01/28/17 08:30 (Tylenol) 650 mg Q6H PRN PO 12/07/16 15:30 01/27/17 21:01 (Tears Naturale Opth Soln) 1 drop TID EACH EYE 12/07/16 18:00 01/28/17 08:30 Miscellaneous Information 1 Q361D XX 12/07/16 15:30 (Chlorhexidine 2% Cloth) Taper DAILY@04 TOP 12/08/16 04:00 12/04/17 03:59 01/01/17 03:31 (Chlorhexidine 2% Cloth) 3 pack UNSCH PRN TOP 12/07/16 15:30 (Milk Of Magnesia Liq) 30 ml Q12H PRN PO 12/07/16 15:30 01/18/17 15:48 (Senokot) 17.2 mg Q12H PRN PO 12/07/16 15:30 01/08/17 22:36 (Aspirin Chew) 81 mg DAILY CHEW 12/08/16 12:00 01/28/17 08:22 (Trandate Inj) 20 mg Q2H PRN IV 12/10/16 00:15 12/14/16 08:05 (Morphine Inj) 2 mg Q3H PRN IV PUSH 12/10/16 09:15 01/26/17 04:32 (Coreg) 6.25 mg Q12HR PO 12/10/16 10:00 01/28/17 08:22 (Phoslo) 1,334 mg TID PO 12/10/16 13:00 01/28/17 08:22 (Rocaltrol) 0.5 mcg DAILY PO 12/10/16 12:45 Future Hold 01/23/17 12:52 (Symbicort 160-4.5 Inh) 1 puff Q12HR INH 12/11/16 12:00 01/27/17 21:08 (Spiriva Inh) 18 mcg DAILY INH 12/11/16 12:00 01/27/17 13:54 (Norvasc) 10 mg DAILY PO 12/11/16 15:15 01/28/17 08:22 (Apresoline Inj) 20 mg Q4H PRN IV PUSH 12/11/16 15:15 12/18/16 04:26 (Catapres) 0.3 mg Q8H PO 12/12/16 08:00 01/28/17 08:22 Sodium Chloride 1,000 ml @ 0 mls/hr Q0M PRN IV 12/12/16 12:11 01/09/17 11:31 (Heparin Inj) 8,000 units UNSCH PRN IVF 12/12/16 12:15 01/06/17 10:58 Sodium Chloride 1,000 ml @ 200 mls/hr Q5H PRN IV 12/12/16 12:11 Sodium Chloride 1,000 ml @ 0 mls/hr Q0M PRN IV 12/12/16 12:11 12/12/16 17:04 (Mannitol Inj) 12.5 gm UNSCH PRN IV 12/12/16 12:15 (Albumin 25% Inj) 25 gm UNSCH PRN IV 12/12/16 12:15 01/23/17 08:23 (NS Flush) 5 ml UNSCH PRN IV FLUSH 12/12/16 12:15 12/26/16 10:34 (Heparin Inj) UNSCH PRN .XX 12/12/16 12:15 01/25/17 10:01 (Gentamicin (Dialysis) Inj) 20 mg UNSCH PRN IV 12/12/16 12:15 01/25/17 10:16 (Zofran Inj) 4 mg UNSCH PRN IV 12/12/16 12:15 (Tylenol) 650 mg UNSCH PRN PO 12/12/16 12:15 01/08/17 15:15 (Benadryl) 25 mg UNSCH PRN PO 12/12/16 12:15 01/28/17 00:39 (Nitrostat Sl) 0.4 mg UNSCH PRN SL 12/12/16 12:15 (Catapres) 0.1 mg UNSCH PRN PO 12/12/16 12:15 12/24/16 18:49 (Epogen Inj) 10,000 units UNSCH PRN IV 12/12/16 12:15 01/25/17 10:15 (Gelfoam 12 Mm/7 Mm Top) 1 foam UNSCH PRN TOP 12/12/16 12:15 (Apresoline) 50 mg Q8HR PO 12/26/16 14:00 01/28/17 05:04 (NS Flush) UNSCH PRN IVF 01/03/17 16:15 (Heparin Inj) UNSCH PRN IV FLUSH 01/03/17 16:15 (Heparin Inj) 5,000 units Q12HR SQ 01/07/17 09:00 01/28/17 08:23 (Mucinex Er) 600 mg BID PO 01/12/17 10:30 01/28/17 08:22 (Cepacol Extra Ha (Sugar Free)) 1 lozenge Q2HR PRN BUCCAL 01/13/17 13:00 (Flomax) 0.4 mg HS PO 01/14/17 21:00 01/27/17 21:01 (NovoLOG INJ) 8 units TIDAC SQ 01/15/17 12:30 01/28/17 08:00 (Levemir Inj) 37 units HS SQ 01/16/17 21:00 01/27/17 21:02 (Fleets Enema (Adult)) 133 ml UNSCH PRN RECTAL 01/18/17 18:30 01/22/17 11:57 (NovoLIN R SUPPLEMENTAL SCALE) 1 ACHS SQ 01/19/17 12:00 01/27/17 21:05 (Narcan Inj) 0.4 mg UNSCH PRN IV PUSH 01/21/17 13:00 (Dulcolax Supp) 10 mg DAILY PRN RECTAL 01/21/17 13:00 01/22/17 15:56 (Lactulose Liq) 30 ml DAILY PRN PO 01/21/17 13:00 (Sara-Colace) 1 tab BID PO 01/21/17 21:00 02/20/17 20:59 01/28/17 08:22 (Miralax) 17 gm DAILY PO 01/24/17 09:00 01/28/17 08:31 Urinary Catheter: No Vascular Central Line Catheter: No A/P Problem List: (1) Respiratory failure ICD Code: J96.90 - Respiratory failure, unspecified, unspecified whether with hypoxia or hypercapnia Status: Acute (2) Sepsis ICD Code: A41.9 - Sepsis, unspecified organism Status: Acute (3) Pneumonia ICD Code: J18.9 - Pneumonia, unspecified organism Status: Acute (4) left atrial thrombus Status: Acute (5) NSTEMI (non-ST elevated myocardial infarction) ICD Code: I21.4 - Non-ST elevation (NSTEMI) myocardial infarction Status: Resolved (6) ARF (acute renal failure) ICD Code: N17.9 - ARF (acute renal failure) Status: Acute (7) Diabetes mellitus ICD Code: E11.9 - Diabetes mellitus Status: Chronic (8) Morbid obesity ICD Code: E66.01 - Morbid (severe) obesity due to excess calories Status: Acute (9) Severe chronic obstructive pulmonary disease ICD Code: J44.9 - Chronic obstructive pulmonary disease, unspecified Status: Acute (10) CKD (chronic kidney disease) stage 4, GFR 15-29 ml/min ICD Code: N18.4 - Chronic kidney disease, stage 4 (severe) Status: Acute Assessment and Plan Mr. Mehta is a 66-year-old male with medical history significant for hypertension and diabetes and CVA who presented to the hospital with a chief complaint of shortness of breath and chest pain. The patient was diagnosed with NSTEMI. Echo was performed which was concerning for thrombus, but study was limited and a repeat was suggested. He has history of chronic kidney disease but worsening of his creatinine was noted. He was seen and evaluated by nephrology who started the patient on hemodialysis. CKD stage IV with GFR 8 Acute renal failure progressing to ESRD - nephrology on board, started on hemodialysis TTHSa - PermaCath placed. Vascular surgery unable to find adequate vein for AVF. Will await nephrology further recommendations. - Kidney biopsy on 01/03/2017 --> diffuse and nodular diabetic glomerulosclerosis, segmental and global glomerular sclerosis, interstitial fibrosis and tubular atrophy severe. - follow UO - monitor BMP, am labs ordered S/P acute respiratory failure secondary to bilateral lower lobe pneumonias/ community acquired - resolved - Urine antigens, sputum culture, blood cultures were all negative. S/p abx treatment course with azithromycin and Rocephin. - Chest x-ray 01/12 clear and labs unremarkable for acute process - Continue guaifenesin and Acapella for cough - O2 if needed to keep sats >92%. - monitor respiratory status - 01/28 Patient feels SOB will obtain a CXR and give a DuoNeb treatment. Hypercalcemia - Hold calcitriol - Hypercalcemia resolving - continue to hold Calcitriol. COPD - Continue Symbicort and Spiriva - Continue albuterol neb. - Not on exacerbation. NSTEMI Hypertension - Echo performed December 07 showed distinct regional wall abnormalities with a possible clot in the apex. - echo with Definity contrast did not appear to show any clots in LV. - Cardiology was consulted, stable from a cardiac standpoint and recommended continued aggressive risk factor modification - ASA 81 mg daily. Coreg 6.25 mg BID. Norvasc 10 mg daily. Clonidine to 0.3 mg po TID and hydralazine 50 mg by mouth daily 8 hour Diabetes mellitus - Continue Levemir 37 units QHS and sliding scale insulin. - pre-meal insulin 8 units TIDAC - Monitor Accu-Cheks and adjust regimen as indicated - Blood sugars stable BPH - continue Tamsulosin. Stable. Deconditioning: PT recommends SNF, generalized weakness likely due to prolonged hospitalization and multiple medical conditions as above. - Continue PT Sunday through Sunday while admitted Constipation - Pericolace BID - add Miralax daily - monitor for BM Heparin SQ for DVT prophylaxis. Discharge Planning Patient will need hemodialysis, not a [place] citizen. Not a safe discharge. Discussed with CM. Problem Qualifiers (1) Respiratory failure: Qualified Codes: J96.00 - Acute respiratory failure, unspecified whether with hypoxia or hypercapnia (2) Sepsis: (3) Pneumonia: (4) ARF (acute renal failure): (5) Diabetes mellitus: Qualified Codes: E11.22 - Type 2 diabetes mellitus with diabetic chronic kidney disease; N18.4 - Chronic kidney disease, stage 4 (severe); Z79.4 - custodial (current) use of insulin Clovis Dunn MD Jan 28, 2017 12:13
[2017-01-28] MEDS ORDERED: RESP: ALBUTEROL 2.5 MG/IPRATROPIUM 0.5 MG NEB (SCH) NEB ONE (12:15)
--- NOTE | 2017-01-28 14:07 | HHI.NPPN ---
Subjective History of Present Illness 66-year-old male with past medical history of hypertension, diabetes mellitus, history of cerebrovascular accident with left-sided weakness, hyperlipidemia, bronchial asthma, chronic kidney disease who was admitted because of shortness of breath and chest pain. I was called to see the patient because of elevated BUN and creatinine. The patient was diagnosed here with non-ST elevation [place]. The patient has history of chronic kidney disease. Additional Remarks No acute complaints, received respiratory treatment earlier today Objective Data Data Vital Signs Date Time Temp Pulse Resp B/P (MAP) Pulse Ox O2 Delivery O2 Flow Rate FiO2 01/28/17 12:00 98.9 80 20 142/67 (92) 99 01/28/17 08:00 98.2 83 20 101/67 (78) 99 01/28/17 04:00 98.2 79 18 124/65 (84) 99 01/28/17 04:00 Nasal Cannula 2.00 01/28/17 00:00 98.2 79 18 124/65 (84) 99 01/28/17 00:00 Nasal Cannula 2.00 01/27/17 23:05 20 01/27/17 21:59 98 Nasal Cannula 2.00 01/27/17 21:05 Nasal Cannula 2.00 01/27/17 20:00 99.9 80 18 142/72 (95) 98 01/27/17 16:00 99.8 96 20 116/65 (82) 98 -: 01/26/17 0740 01/26/17 0740 Physical Exam General Appearance: No Acute Distress, Comfortable Eyes Eye Exam: Pupils Equal Throat Throat Exam: Oral Mucosa [place] & Moist Neck Neck Exam: Neck Supple Pulmonary Resp Exam: No Distress, Rhonchi, Decreased Bases, Diminished Breath Sounds Cardiology CV Exam: Regular, Normal Sinus Rhythm Gastrointestinal/Abdomen GI Exam: Soft, Non-Tender, Bowel Sounds Present Extremeties Extremities Exam: Moderate Edema Neurologic Neuro Exam: Alert, Awake Psychiatric Psych Exam: Appropriate Responses Assessment/Plan Assessment Summary: WILLIE/Acute Renal Failure, CHF, CKD Stage IV Problem List: (1) NSTEMI (non-ST elevated myocardial infarction) ICD Codes: I21.4 - Non-ST elevation (NSTEMI) myocardial infarction Status: Resolved (2) Diabetes mellitus ICD Codes: E11.9 - Diabetes mellitus Status: Chronic (3) Asthma ICD Codes: J45.909 - Asthma Status: Chronic (4) Shortness of breath ICD Codes: R06.02 - Shortness of breath Status: Acute (5) Leg edema ICD Codes: R60.0 - Leg edema Status: Acute (6) Hypertension ICD Codes: I10 - Hypertension Status: Chronic Plan Patient has been non oliguric, Creatinine is still elevated. K is normal, Follow urine out put and BMP. Has proteinuria, serology negative. Added Phoslo as Po4 is elevated and calcitriol as Calcium is low. BP is better. Follow urine out put and watch for any renal recovery. The Kidney Biopsy showing Diabetic and Hypertensive renal disease. Case management notes seen. HD to continue 3 times a week. Tolerated HD yesterday, continue TTS HD. Poor catheter flow - will order for HD catheter exchange Sunday, NPO at midnight Sunday. Seen with [facility] for AV access Sunday - no access planned due to small vessels. May consider for evaluation eventually as an outpatient.... Awaiting arrangements for out patient HD. Problem Qualifiers (1) Diabetes mellitus: Qualified Codes: E11.22 - Type 2 diabetes mellitus with diabetic chronic kidney disease; N18.4 - Chronic kidney disease, stage 4 (severe); Z79.4 - senior care (current) use of insulin (2) Hypertension: Qualified Codes: I10 - Essential (primary) hypertension Reed Prescott MD Jan 28, 2017 14:07
--- NOTE | 2017-01-28 14:56 | RADRPT ---
EXAM DATE/TIME: 01/28/2017 14:00 [facility] COMPARISON: CHEST SINGLE AP, January 12, 2017, 11:15. INDICATIONS : Shortness of breath. MEDICAL HISTORY : Hypercholesterolemia. Diabetes mellitus type 2. CVA. HTN. Asthma. COPD. Chest SURGICAL HISTORY : Appendectomy. Ruptured cerebral aneurysm repair. Ventriculostomy. Vas Cath ENCOUNTER: Initial ACUITY: 2 weeks PAIN SCORE: 0/10 LOCATION: Bilateral chest FINDINGS: A single view of the chest demonstrates the lungs to be symmetrically aerated without evidence of mas s, infiltrate or effusion. The cardiomediastinal contours are unremarkable. Osseous structures are intact. CONCLUSION: Normal examination. Right-sided dual-lumen catheter in good position. Yoni Bay MD on January 28, 2017 at 14:54 Board Certified Radiologist. This report was verified electronically.
[2017-01-28] MEDS: CHLORHEXIDINE 0.12% (ORAL KIT) 15 ML CUP MT SCH (20:00)
[2017-01-28] MEDS: TAMSULOSIN HCL 0.4 MG CAP PO SCH (21:27)
[2017-01-28] MEDS: INSULIN DETEMIR 100 UNITS/ML VIAL SQ SCH (21:28)
[2017-01-29] VITALS: BP 149/81; PULSE 76; RESP 20; TEMP 99.3; O2SAT 100
[2017-01-29] MEDS: cloNIDine HCL 0.3 MG TAB PO SCH ×3 (00:43→15:45)
[2017-01-29] MEDS: CHLORHEXIDINE GLUCONATE 2 % 1 PACK (2 CLOTHS) TOP SCH (03:24)
[2017-01-29 04:00] VITALS: BP 119/64; PULSE 72; RESP 20; TEMP 98.5; O2SAT 100
[2017-01-29] MEDS: hydrALAZINE HCL 50 MG TAB PO SCH ×3 (05:08→22:18)
[2017-01-29 09:17] VITALS: BP 122/66; PULSE 78; RESP 16; TEMP 98.4; O2SAT 96
[2017-01-29] MEDS: POLYETHYLENE GLYCOL 17 GM PKG PO SCH (09:54)
[2017-01-29] MEDS: INSULIN NovoLIN REGULAR SUPPLEMENTAL SCALE SQ SCH ×4 (09:54→21:00)
[2017-01-29] MEDS: INSULIN ASPART 1,000 UNITS/10 ML VIAL SQ SCH ×3 (09:54→18:35)
[2017-01-29] MEDS: CARVEDILOL 6.25 MG TAB PO SCH ×2 (09:55→22:18)
[2017-01-29] MEDS: SODIUM CHLORIDE 0.9% FLUSH 10 ML FLUSH IV FLUSH SCH ×2 (09:55→22:18)
[2017-01-29] MEDS: CALCIUM ACETATE 667 MG CAP PO SCH ×3 (09:55→18:33)
[2017-01-29] MEDS: guaiFENesin E.R. 600 MG TAB PO SCH ×2 (09:55→22:18)
[2017-01-29] MEDS: SODIUM CHLORIDE 0.9% FLUSH 10 ML FLUSH IVF SCH (09:55)
[2017-01-29] MEDS: HEPARIN SODIUM - SQ 10,000 UNITS/ML VIAL SQ SCH (09:55)
[2017-01-29] MEDS: DOCUSATE SODIUM 50 MG/SENNA 8.6 MG TAB PO SCH ×2 (09:55→22:18)
[2017-01-29] MEDS: ASPIRIN 81 MG CHEW TAB CHEW SCH (09:55)
[2017-01-29] MEDS: BUDESONIDE-FORMOTEROL 160/4.5 MCG INHALER INH SCH ×2 (09:56→21:00)
[2017-01-29] MEDS: TIOTROPIUM BROMIDE 18 MCG INH INH SCH (09:56)
[2017-01-29] MEDS: ARTIFICIAL TEARS OPTH SOLN 15 ML BTL EACH EYE SCH ×3 (09:56→18:35)
[2017-01-29] MEDS: CHLORHEXIDINE 0.12% (ORAL KIT) 15 ML CUP MT SCH ×2 (10:01→20:00)
--- NOTE | 2017-01-29 14:38 | HHI.PR ---
Subjective Remarks Patient states he has mild abdominal discomfort and feels constipated. denies cp sob much improved Objective Vitals Vital Signs Date Time Temp Pulse Resp B/P (MAP) Pulse Ox O2 Delivery O2 Flow Rate FiO2 01/29/17 10:07 Nasal Cannula 2.00 01/29/17 09:17 98.4 78 16 122/66 (84) 96 01/29/17 04:00 Nasal Cannula 2.00 01/29/17 04:00 98.5 72 20 119/64 (82) 100 01/29/17 00:00 99.3 76 20 149/81 (103) 100 01/29/17 00:00 Nasal Cannula 2.00 01/28/17 21:45 Nasal Cannula 2.00 01/28/17 20:00 98.5 80 20 146/78 (100) 99 01/28/17 16:00 99.0 91 20 141/74 (96) 96 01/28/17 15:53 98 Nasal Cannula 2.00 I/O 01/28/17 01/28/17 01/28/17 01/29/17 01/29/17 01/29/17 07:00 15:00 23:00 07:00 15:00 23:00 Intake Total 360 ml 0 ml Balance 360 ml 0 ml Intake Oral 360 ml 0 ml # Voids 2 1 # Bowel Movements 1 Result Diagram: 01/26/17 0740 01/26/17 0740 Imaging Last Impressions Chest X-Ray 01/28/17 0000 Signed Impressions: Service Date/Time: Saturday, January 28, 2017 14:00 - CONCLUSION: Normal examination. Right-sided dual-lumen catheter in good position. Yoni Bay MD Carotid Artery Ultrasound 01/10/17 0000 Signed Impressions: Service Date/Time: Tuesday, January 10, 2017 12:25 - CONCLUSION: Negative examination for a hemodynamically significant carotid stenosis. Marek Burnett MD FACR Upper Extremity Ultrasound 01/05/17 0000 Signed Impressions: Service Date/Time: Thursday, January 05, 2017 18:56 - CONCLUSION: Normal examination. Ji Martinez MD Renal Biopsy CT 01/03/17 0000 Signed Impressions: Service Date/Time: Tuesday, January 03, 2017 13:28 - CONCLUSION: Uncomplicated CT guided biopsy. Ji Cedillo MD Central Venous Line 01/03/17 0000 Signed Impressions: Service Date/Time: Tuesday, January 03, 2017 00:00 - CONCLUSION: Uncomplicated catheter removal. Filiberto Rodarte MD Catheter Placement X-Ray 01/03/17 0000 Signed Impressions: Service Date/Time: Tuesday, January 03, 2017 14:27 - CONCLUSION: Uncomplicated PermaCath placement as above. Filiberto Rodarte MD Chest CT 12/08/16 0000 Signed Impressions: Service Date/Time: Thursday, December 08, 2016 14:02 - CONCLUSION: 1. Bilateral lower lobe consolidating airspace disease. 2. Small to moderate bilateral pleural effusions; larger on the left. 3. Cardiomegaly. 4. Endotracheal and nasogastric tubes in good position. Tutu Christianson MD Renal Ultrasound 12/07/16 0000 Signed Impressions: Service Date/Time: November 07:54 - CONCLUSION: Unremarkable and stable bilateral renal ultrasound. No evidence of hydronephrosis. Baron Medrano MD Objective Remarks AAOx3 Facial edema Mild scattered wheezing BL no edema in lower extremities Procedures Echo 12/07/2016 Mildly dilated left ventricle. Wall thickness is normal. The left ventricular systolic function is normal with an estimated ejection fraction is 45-50%. There is distinct regional wall motion abnormalities with akinetic apex and possibly clot at the apex. Consider repeating study with contrast/Definity to better asses apex The right ventriclar size is upper limits of normal. The left atrial size is moderately dilated. The right atrial size is moderately dilated. [id number] mitral valve regurgitation. There is mild tricuspid valve regurgitation. There is estimated mild pulmonary hypertension present (range 40-50 mmHg). The pulmonary valve is not well visualized. The inferior vena cava is dilated. There is less than 50% respiratory change in dimension of the inferior vena cava (abnormal). Medications and IVs Current Medications Medications (Trade) Dose Ordered Sig/Abby Route Start Time Stop Time Status Last Admin (D50w (Vial) Inj) 25 ml UNSCH PRN IV PUSH 12/07/16 00:45 (Zofran Inj) 4 mg Q6H PRN IV 12/07/16 00:45 (NS Flush) DAILY IVF 12/07/16 15:30 01/29/17 09:55 (NS Flush) UNSCH PRN IVF 12/07/16 15:30 (Peridex 0.12% Liq) 15 ml BID@08,20 MT 12/07/16 20:00 01/26/17 08:00 (NS Flush) 2 ml UNSCH PRN IV FLUSH 12/07/16 15:30 12/12/16 11:32 (NS Flush) 2 ml BID IV FLUSH 12/07/16 21:00 01/28/17 21:29 (Tylenol) 650 mg Q6H PRN PO 12/07/16 15:30 01/29/17 15:57 (Tears Naturale Opth Soln) 1 drop TID EACH EYE 12/07/16 18:00 01/29/17 09:56 Miscellaneous Information 1 Q361D XX 12/07/16 15:30 (Chlorhexidine 2% Cloth) Taper DAILY@04 TOP 12/08/16 04:00 12/04/17 03:59 01/01/17 03:31 (Chlorhexidine 2% Cloth) 3 pack UNSCH PRN TOP 12/07/16 15:30 (Milk Of Magnesia Liq) 30 ml Q12H PRN PO 12/07/16 15:30 01/18/17 15:48 (Senokot) 17.2 mg Q12H PRN PO 12/07/16 15:30 01/08/17 22:36 (Aspirin Chew) 81 mg DAILY CHEW 12/08/16 12:00 01/29/17 09:55 (Trandate Inj) 20 mg Q2H PRN IV 12/10/16 00:15 12/14/16 08:05 (Morphine Inj) 2 mg Q3H PRN IV PUSH 12/10/16 09:15 01/26/17 04:32 (Coreg) 6.25 mg Q12HR PO 12/10/16 10:00 01/29/17 09:55 (Phoslo) 1,334 mg TID PO 12/10/16 13:00 01/29/17 15:45 (Rocaltrol) 0.5 mcg DAILY PO 12/10/16 12:45 Future Hold 01/23/17 12:52 (Symbicort 160-4.5 Inh) 1 puff Q12HR INH 12/11/16 12:00 01/29/17 09:56 (Spiriva Inh) 18 mcg DAILY INH 12/11/16 12:00 01/29/17 09:56 (Norvasc) 10 mg DAILY PO 12/11/16 15:15 01/29/17 09:55 (Apresoline Inj) 20 mg Q4H PRN IV PUSH 12/11/16 15:15 12/18/16 04:26 (Catapres) 0.3 mg Q8H PO 12/12/16 08:00 01/29/17 15:45 Sodium Chloride 1,000 ml @ 0 mls/hr Q0M PRN IV 12/12/16 12:11 01/09/17 11:31 (Heparin Inj) 8,000 units UNSCH PRN IVF 12/12/16 12:15 Future hold 01/06/17 10:58 Sodium Chloride 1,000 ml @ 200 mls/hr Q5H PRN IV 12/12/16 12:11 Sodium Chloride 1,000 ml @ 0 mls/hr Q0M PRN IV 12/12/16 12:11 12/12/16 17:04 (Mannitol Inj) 12.5 gm UNSCH PRN IV 12/12/16 12:15 (Albumin 25% Inj) 25 gm UNSCH PRN IV 12/12/16 12:15 01/23/17 08:23 (NS Flush) 5 ml UNSCH PRN IV FLUSH 12/12/16 12:15 12/26/16 10:34 (Heparin Inj) UNSCH PRN .XX 12/12/16 12:15 01/25/17 10:01 (Gentamicin (Dialysis) Inj) 20 mg UNSCH PRN IV 12/12/16 12:15 01/25/17 10:16 (Zofran Inj) 4 mg UNSCH PRN IV 12/12/16 12:15 (Tylenol) 650 mg UNSCH PRN PO 12/12/16 12:15 01/08/17 15:15 (Benadryl) 25 mg UNSCH PRN PO 12/12/16 12:15 01/28/17 00:39 (Nitrostat Sl) 0.4 mg UNSCH PRN SL 12/12/16 12:15 (Catapres) 0.1 mg UNSCH PRN PO 12/12/16 12:15 12/24/16 18:49 (Epogen Inj) 10,000 units UNSCH PRN IV 12/12/16 12:15 01/25/17 10:15 (Gelfoam 12 Mm/7 Mm Top) 1 foam UNSCH PRN TOP 12/12/16 12:15 (Apresoline) 50 mg Q8HR PO 12/26/16 14:00 01/29/17 15:45 (NS Flush) UNSCH PRN IVF 01/03/17 16:15 (Heparin Inj) UNSCH PRN IV FLUSH 01/03/17 16:15 (Heparin Inj) 5,000 units Q12HR SQ 01/07/17 09:00 Future hold 01/29/17 09:55 (Mucinex Er) 600 mg BID PO 01/12/17 10:30 01/29/17 09:55 (Cepacol Extra Ha (Sugar Free)) 1 lozenge Q2HR PRN BUCCAL 01/13/17 13:00 (Flomax) 0.4 mg HS PO 01/14/17 21:00 01/28/17 21:27 (NovoLOG INJ) 8 units TIDAC SQ 01/15/17 12:30 01/28/17 17:00 (Levemir Inj) 37 units HS SQ 01/16/17 21:00 01/28/17 21:28 (Fleets Enema (Adult)) 133 ml UNSCH PRN RECTAL 01/18/17 18:30 01/22/17 11:57 (NovoLIN R SUPPLEMENTAL SCALE) 1 ACHS SQ 01/19/17 12:00 01/28/17 21:37 (Narcan Inj) 0.4 mg UNSCH PRN IV PUSH 01/21/17 13:00 (Dulcolax Supp) 10 mg DAILY PRN RECTAL 01/21/17 13:00 01/22/17 15:56 (Lactulose Liq) 30 ml DAILY PRN PO 01/21/17 13:00 01/29/17 15:57 (Sara-Colace) 1 tab BID PO 01/21/17 21:00 02/20/17 20:59 01/29/17 09:55 (Miralax) 17 gm DAILY PO 01/24/17 09:00 01/29/17 09:54 (Duoneb Neb) 1 ampule Q4HR NEB PRN NEB 01/28/17 16:00 Vancomycin HCl 1000 mg/Sodium Chloride 250 ml @ 250 mls/hr CULINARY MANAGER IV 01/29/17 16:00 02/02/17 15:59 Cefazolin Sodium/ Dextrose 50 ml @ 100 mls/hr CULINARY MANAGER IV 01/29/17 16:00 02/02/17 15:59 A/P Problem List: (1) Respiratory failure ICD Code: J96.90 - Respiratory failure, unspecified, unspecified whether with hypoxia or hypercapnia Status: Acute (2) Sepsis ICD Code: A41.9 - Sepsis, unspecified organism Status: Acute (3) Pneumonia ICD Code: J18.9 - Pneumonia, unspecified organism Status: Acute (4) left atrial thrombus Status: Acute (5) NSTEMI (non-ST elevated myocardial infarction) ICD Code: I21.4 - Non-ST elevation (NSTEMI) myocardial infarction Status: Resolved (6) ARF (acute renal failure) ICD Code: N17.9 - ARF (acute renal failure) Status: Acute (7) Diabetes mellitus ICD Code: E11.9 - Diabetes mellitus Status: Chronic (8) Morbid obesity ICD Code: E66.01 - Morbid (severe) obesity due to excess calories Status: Acute (9) Severe chronic obstructive pulmonary disease ICD Code: J44.9 - Chronic obstructive pulmonary disease, unspecified Status: Acute (10) CKD (chronic kidney disease) stage 4, GFR 15-29 ml/min ICD Code: N18.4 - Chronic kidney disease, stage 4 (severe) Status: Acute Assessment and Plan Mr. Mehta is a 66-year-old male with medical history significant for hypertension and diabetes and CVA who presented to the hospital with a chief complaint of shortness of breath and chest pain. The patient was diagnosed with NSTEMI. Echo was performed which was concerning for thrombus, but study was limited and a repeat was suggested. He has history of chronic kidney disease but worsening of his creatinine was noted. He was seen and evaluated by nephrology who started the patient on hemodialysis. CKD stage IV with GFR 8 Acute renal failure progressing to ESRD - nephrology on board, started on hemodialysis TTHSa - PermaCath placed. Vascular surgery unable to find adequate vein for AVF. Will await nephrology further recommendations. - Kidney biopsy on 01/03/2017 --> diffuse and nodular diabetic glomerulosclerosis, segmental and global glomerular sclerosis, interstitial fibrosis and tubular atrophy severe. - follow UO - monitor BMP, am labs ordered S/P acute respiratory failure secondary to bilateral lower lobe pneumonias/ community acquired - resolved - Urine antigens, sputum culture, blood cultures were all negative. S/p abx treatment course with azithromycin and Rocephin. - Chest x-ray 01/12 clear and labs unremarkable for acute process - Continue guaifenesin and Acapella for cough - O2 if needed to keep sats >92%. - monitor respiratory status - 01/28 Patient feels SOB will obtain a CXR and give a DuoNeb treatment. Hypercalcemia - Hold calcitriol - Hypercalcemia resolving - continue to hold Calcitriol. COPD - Continue Symbicort and Spiriva - Continue albuterol neb. - Not on exacerbation. NSTEMI Hypertension - Echo performed December 07 showed distinct regional wall abnormalities with a possible clot in the apex. - echo with Definity contrast did not appear to show any clots in LV. - Cardiology was consulted, stable from a cardiac standpoint and recommended continued aggressive risk factor modification - ASA 81 mg daily. Coreg 6.25 mg BID. Norvasc 10 mg daily. Clonidine to 0.3 mg po TID and hydralazine 50 mg by mouth daily 8 hour Diabetes mellitus - Continue Levemir 37 units QHS and sliding scale insulin. - pre-meal insulin 8 units TIDAC - Monitor Accu-Cheks and adjust regimen as indicated - Blood sugars stable BPH - continue Tamsulosin. Stable. Deconditioning: PT recommends SNF, generalized weakness likely due to prolonged hospitalization and multiple medical conditions as above. - Continue PT Sunday through Sunday while admitted Constipation - Pericolace BID - add Miralax daily - monitor for BM Heparin SQ for DVT prophylaxis. Discharge Planning Patient will need hemodialysis, not a [place] citizen. Not a safe discharge. Discussed with CM. 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
[2017-01-29] MEDS: ACETAMINOPHEN 325 MG TAB PO PRN (15:57)
[2017-01-29] MEDS: LACTULOSE SYRUP 20 GM/30 ML CUP PO PRN (15:57)
[2017-01-29] MEDS ORDERED: ceFAZolin 2 GM PREMIX 50 ML IV SCH (16:00)
[2017-01-29] MEDS ORDERED: VANCOMYCIN INJ 1,000 MG in SODIUM CHLOR 0.9% 250 ML INJ 250 ML IV SCH (16:00)
--- NOTE | 2017-01-29 17:16 | HHI.NPPN ---
Subjective History of Present Illness 66-year-old male with past medical history of hypertension, diabetes mellitus, history of cerebrovascular accident with left-sided weakness, hyperlipidemia, bronchial asthma, chronic kidney disease who was admitted because of shortness of breath and chest pain. I was called to see the patient because of elevated BUN and creatinine. The patient was diagnosed here with non-ST elevation [place]. The patient has history of chronic kidney disease. Additional Remarks Patient is alert, not in distress, no complain, no SOB. Objective Data Data Vital Signs Date Time Temp Pulse Resp B/P (MAP) Pulse Ox O2 Delivery O2 Flow Rate FiO2 01/29/17 10:07 Nasal Cannula 2.00 01/29/17 09:17 98.4 78 16 122/66 (84) 96 01/29/17 04:00 Nasal Cannula 2.00 01/29/17 04:00 98.5 72 20 119/64 (82) 100 01/29/17 00:00 99.3 76 20 149/81 (103) 100 01/29/17 00:00 Nasal Cannula 2.00 01/28/17 21:45 Nasal Cannula 2.00 01/28/17 20:00 98.5 80 20 146/78 (100) 99 -: 01/26/17 0740 01/26/17 0740 Physical Exam General Appearance: No Acute Distress, Comfortable Eyes Eye Exam: Pupils Equal Throat Throat Exam: Oral Mucosa [place] & Moist Neck Neck Exam: Neck Supple Pulmonary Resp Exam: No Distress, Rhonchi, Decreased Bases, Diminished Breath Sounds Cardiology CV Exam: Regular, Normal Sinus Rhythm Gastrointestinal/Abdomen GI Exam: Soft, Non-Tender, Bowel Sounds Present Extremeties Extremities Exam: Moderate Edema Neurologic Neuro Exam: Alert, Awake Psychiatric Psych Exam: Appropriate Responses Assessment/Plan Assessment Summary: WILLIE/Acute Renal Failure, CHF, CKD Stage IV Problem List: (1) NSTEMI (non-ST elevated myocardial infarction) ICD Codes: I21.4 - Non-ST elevation (NSTEMI) myocardial infarction Status: Resolved (2) Diabetes mellitus ICD Codes: E11.9 - Diabetes mellitus Status: Chronic (3) Asthma ICD Codes: J45.909 - Asthma Status: Chronic (4) Shortness of breath ICD Codes: R06.02 - Shortness of breath Status: Acute (5) Leg edema ICD Codes: R60.0 - Leg edema Status: Acute (6) Hypertension ICD Codes: I10 - Hypertension Status: Chronic Plan Patient has been non oliguric, Creatinine is still elevated. K is normal, Follow urine out put and BMP. Has proteinuria, serology negative. Added Phoslo as Po4 is elevated and calcitriol as Calcium is low. BP is better. Follow urine out put and watch for any renal recovery. Got the PermCath , has poor flow from Vascath. The Kidney Biopsy showing Diabetic and Hypertensive renal disease. Case management notes seen. HD to continue 3 times a week. Awaiting arrangements for out patient HD. Continue HD as schedule. 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
[2017-01-29 19:30] VITALS: BP 124/67; PULSE 76; RESP 16; TEMP 97.9; O2SAT 95
[2017-01-29 20:00] VITALS: BP 119/65; PULSE 69; RESP 18; TEMP 98.3; O2SAT 95
[2017-01-29] MEDS: TAMSULOSIN HCL 0.4 MG CAP PO SCH (22:18)
[2017-01-29] MEDS: INSULIN DETEMIR 100 UNITS/ML VIAL SQ SCH (22:18)
[2017-01-30] VITALS (7 sets, daily range): BP systolic 122–145; BP diastolic 58–79; PULSE 64–84; RESP 18–20; TEMP 97.9–98.6; O2SAT 96–100
[2017-01-30] MEDS: cloNIDine HCL 0.3 MG TAB PO SCH ×4 (00:43→23:50)
[2017-01-30] MEDS: CHLORHEXIDINE GLUCONATE 2 % 1 PACK (2 CLOTHS) TOP SCH (03:39)
[2017-01-30] MEDS: hydrALAZINE HCL 50 MG TAB PO SCH ×3 (05:40→22:00)
[2017-01-30] MEDS: INSULIN ASPART 1,000 UNITS/10 ML VIAL SQ SCH ×3 (08:00→17:29)
[2017-01-30] MEDS: CHLORHEXIDINE 0.12% (ORAL KIT) 15 ML CUP MT SCH ×2 (08:00→20:00)
[2017-01-30] MEDS: HEPARIN SODIUM - IV 10,000 UNITS/10 ML VIAL PRN (08:57)
[2017-01-30] MEDS: ALBUMIN HUMAN 25% 25 GM/100 ML BAGP IV PRN (08:57)
[2017-01-30] MEDS: EPOETIN ALFA 10,000 UNITS/ML VIAL IV PRN (08:57)
[2017-01-30] MEDS: GENTAMICIN SULFATE (DIALYSIS USE ONLY) 20 MG/2 ML VIAL IV PRN (08:57)
[2017-01-30 09:46] LABS: HEMATOCRIT 31.4 % (39.0-51.0); MEAN CELL VOLUME 86.6 FL (80.0-100.0); MEAN CORPUSCULAR HEMOGLOBIN 27.5 PG (27.0-34.0); MEAN CORPUSCULAR HGB CONC 31.7 % (32.0-36.0); PLATELET COUNT 233 TH/MM3 (150-450); RED BLOOD COUNT 3.62 MIL/MM3 (4.50-5.90); RED CELL DISTRIBUTION WIDTH 15.4 % (11.6-17.2); REVIEW FLAG FINAL; WHITE BLOOD COUNT 4.3 TH/MM3 (4.0-11.0)
[2017-01-30] MEDS: INSULIN NovoLIN REGULAR SUPPLEMENTAL SCALE SQ SCH ×4 (09:51→20:59)
[2017-01-30] MEDS: ARTIFICIAL TEARS OPTH SOLN 15 ML BTL EACH EYE SCH ×3 (09:51→17:29)
[2017-01-30] MEDS: SODIUM CHLORIDE 0.9% FLUSH 10 ML FLUSH IV FLUSH SCH ×2 (09:52→20:58)
[2017-01-30] MEDS: CALCIUM ACETATE 667 MG CAP PO SCH ×3 (09:52→17:28)
[2017-01-30 10:02] LABS: BICARBONATE 30.7 MEQ/L (21.0-32.0); MAGNESIUM 2.6 MG/DL (1.5-2.5); POTASSIUM 3.8 MEQ/L (3.5-5.1)
[2017-01-30] MEDS: RESP: ALBUTEROL 2.5 MG/IPRATROPIUM 0.5 MG NEB (PRN) NEB (10:11)
--- NOTE | 2017-01-30 11:19 | HHI.NPPN ---
Subjective History of Present Illness 66-year-old male with past medical history of hypertension, diabetes mellitus, history of cerebrovascular accident with left-sided weakness, hyperlipidemia, bronchial asthma, chronic kidney disease who was admitted because of shortness of breath and chest pain. I was called to see the patient because of elevated BUN and creatinine. The patient was diagnosed here with non-ST elevation [place]. The patient has history of chronic kidney disease. Additional Remarks Patient is alert, seen during HD, has mild SOB, on nebulizer treatment. Objective Data Data 01/30/17 01/31/17 19:00 07:00 Intake Total 100 ml Balance 100 ml IV Total 100 ml Vital Signs Date Time Temp Pulse Resp B/P (MAP) Pulse Ox O2 Delivery O2 Flow Rate FiO2 01/30/17 08:00 98.2 66 20 145/66 (92) 98 01/30/17 04:00 96 Nasal Cannula 2.00 21 01/30/17 04:00 97.9 64 20 139/79 (99) 98 01/30/17 00:00 98.3 75 20 122/68 (86) 96 01/30/17 00:00 96 Nasal Cannula 2.00 21 01/29/17 20:00 98.3 69 18 119/65 (83) 95 01/29/17 20:00 96 Nasal Cannula 2.00 21 01/29/17 19:30 97.9 76 16 124/67 (86) 95 -: 01/30/17 0850 01/30/17 0850 Physical Exam General Appearance: No Acute Distress, Comfortable Eyes Eye Exam: Pupils Equal Throat Throat Exam: Oral Mucosa [place] & Moist Neck Neck Exam: Neck Supple Pulmonary Resp Exam: No Distress, Rhonchi, Decreased Bases, Diminished Breath Sounds Cardiology CV Exam: Regular, Normal Sinus Rhythm Gastrointestinal/Abdomen GI Exam: Soft, Non-Tender, Bowel Sounds Present Extremeties Extremities Exam: Moderate Edema Neurologic Neuro Exam: Alert, Awake Psychiatric Psych Exam: Appropriate Responses Assessment/Plan Assessment Summary: WILLIE/Acute Renal Failure, CHF, CKD Stage IV Problem List: (1) NSTEMI (non-ST elevated myocardial infarction) ICD Codes: I21.4 - Non-ST elevation (NSTEMI) myocardial infarction Status: Resolved (2) Diabetes mellitus ICD Codes: E11.9 - Diabetes mellitus Status: Chronic (3) Asthma ICD Codes: J45.909 - Asthma Status: Chronic (4) Shortness of breath ICD Codes: R06.02 - Shortness of breath Status: Acute (5) Leg edema ICD Codes: R60.0 - Leg edema Status: Acute (6) Hypertension ICD Codes: I10 - Hypertension Status: Chronic Plan Patient has been non oliguric, Creatinine is still elevated. K is normal, Follow urine out put and BMP. Has proteinuria, serology negative. Added Phoslo as Po4 is elevated and calcitriol as Calcium is low. BP is better. Follow urine out put and watch for any renal recovery. Got the PermCath , has poor flow from Vascath. The Kidney Biopsy showing Diabetic and Hypertensive renal disease. Case management notes seen. HD to continue 3 times a week. Awaiting arrangements for out patient HD. HD now, remove fluid as tolerated. AVF cannot be done as per vascular due to poor veins. Problem Qualifiers (1) Diabetes mellitus: Qualified Codes: E11.22 - Type 2 diabetes mellitus with diabetic chronic kidney disease; N18.4 - Chronic kidney disease, stage 4 (severe); Z79.4 - [facility] (current) use of insulin (2) Hypertension: Qualified Codes: I10 - Essential (primary) hypertension Zoey Carbone MD Jan 30, 2017 11:19
[2017-01-30] MEDS: TIOTROPIUM BROMIDE 18 MCG INH INH SCH (12:23)
[2017-01-30] MEDS: BUDESONIDE-FORMOTEROL 160/4.5 MCG INHALER INH SCH ×2 (12:23→21:00)
[2017-01-30] MEDS: ACETAMINOPHEN 325 MG TAB PO PRN (12:24)
[2017-01-30] MEDS: POLYETHYLENE GLYCOL 17 GM PKG PO SCH (12:25)
[2017-01-30] MEDS: CARVEDILOL 6.25 MG TAB PO SCH ×2 (12:25→20:56)
[2017-01-30] MEDS: guaiFENesin E.R. 600 MG TAB PO SCH ×2 (12:25→20:56)
[2017-01-30] MEDS: SODIUM CHLORIDE 0.9% FLUSH 10 ML FLUSH IVF SCH (12:25)
[2017-01-30] MEDS: ASPIRIN 81 MG CHEW TAB CHEW SCH (12:25)
[2017-01-30] MEDS: DOCUSATE SODIUM 50 MG/SENNA 8.6 MG TAB PO SCH ×2 (12:25→20:56)
--- NOTE | 2017-01-30 16:08 | RADRPT ---
EXAM DATE/TIME: 01/30/2017 00:00 [facility] COMPARISON: No previous studies available for comparison. INDICATIONS : Patient with history of chronic renal failure in need of permcath replacement due to poor flow during dialysis. MEDICAL HISTORY : Asthma High cholesterol CVA Type 2 DM Headaches Hypertension L sided weakness s/p CVA SURGICAL HISTORY : Appendectomy Ruptured cerebral aneurysm Ventriculostomy ENCOUNTER: Subsequent ACUITY: > 1 year PAIN SCORE: 0/10 FLUORO TIME: 0.1 minutes IMAGE SERIES: PROCEDURE : 1. Access of [id number]-u-eght. 2. Port patency injection. The risks, benefits and alternatives to the procedure were explained and verbal and written consent w as obtained. The patient was placed supine. The port was prepped in sterile fashion. Full sterile t echnique was used, including cap, mask, sterile gloves and gown, and a large sterile sheet. Hand hyg iene and 2% chlorhexidine prep was utilized per protocol for cutaneous antisepsis with appropriate dr y time for site. The previously placed perm catheter was evaluated fluoroscopically and was shown to be in excellent p osition. Both ports aspirated and flushed without difficulty. I discussed the findings directly with dialysis. According to dialysis, the catheter has been functioning appropriately. Therefore, no inter vention was performed. CONCLUSION: Right IJ PermCath is in excellent position and appears to be functioning appropriatel shivani Rodarte MD on January 30, 2017 at 16:05 Board Certified Radiologist. This report was verified electronically.
--- NOTE | 2017-01-30 17:03 | HHI.PR ---
Subjective Remarks Follow-up visit acute renal failure going on end-stage renal disease on hemodialysis, COPD, NSTEMI. He was seen and examined today. Patient is laying in bed appears to be tired and drowsy. States he just came back from hemodialysis. Continues to complain of mild abdominal pain tender to palpate. Reports he has not had a bowel movement for 2 days. Otherwise, denies chest pain, palpitations, increasing shortness of breath or dyspnea, nausea, vomiting , diarrhea. As per nursing, patient continues to be constipated, he was given laxatives today. Objective Vitals Vital Signs Date Time Temp Pulse Resp B/P (MAP) Pulse Ox O2 Delivery O2 Flow Rate FiO2 01/30/17 16:08 Nasal Cannula 2.00 01/30/17 12:00 98.6 84 20 142/67 (92) 99 01/30/17 08:00 98.2 66 20 145/66 (92) 98 01/30/17 04:00 96 Nasal Cannula 2.00 21 01/30/17 04:00 97.9 64 20 139/79 (99) 98 01/30/17 00:00 98.3 75 20 122/68 (86) 96 01/30/17 00:00 96 Nasal Cannula 2.00 21 01/29/17 20:00 98.3 69 18 119/65 (83) 95 01/29/17 20:00 96 Nasal Cannula 2.00 21 01/29/17 19:30 97.9 76 16 124/67 (86) 95 I/O 01/29/17 01/29/17 01/29/17 01/30/17 01/30/17 01/30/17 07:00 15:00 23:00 07:00 15:00 23:00 Intake Total 0 ml 120 ml 100 ml 250 ml Output Total 1200 ml Balance 0 ml 120 ml -1100 ml 250 ml Intake Oral 0 ml 120 ml IV Total 100 ml 250 ml Hemodialysis 1200 ml # Voids 1 # Bowel Movements 1 1 Result Diagram: 01/30/17 0850 01/30/17 0850 Imaging Last Impressions Chest X-Ray 01/28/17 0000 Signed Impressions: Service Date/Time: Saturday, January 28, 2017 14:00 - CONCLUSION: Normal examination. Right-sided dual-lumen catheter in good position. Yoni Bay MD Carotid Artery Ultrasound 01/10/17 Signed Impressions: Service Date/Time: Tuesday, January 10, 2017 12:25 - CONCLUSION: Negative examination for a hemodynamically significant carotid stenosis. Marek Burnett MD FACR Upper Extremity Ultrasound 01/05/17 Signed Impressions: Service Date/Time: Thursday, January 05, 2017 18:56 - CONCLUSION: Normal examination. Ji Martinez MD Renal Biopsy CT 01/03/17 Signed Impressions: Service Date/Time: Tuesday, January 03, 2017 13:28 - CONCLUSION: Uncomplicated CT guided biopsy. Ji Cedillo MD Central Venous Line 01/03/17 Signed Impressions: Service Date/Time: Tuesday, January 03, 2017 00:00 - CONCLUSION: Uncomplicated catheter removal. Filiberto Rodarte MD Catheter Placement X-Ray 01/03/17 Signed Impressions: Service Date/Time: Tuesday, January 03, 2017 14:27 - CONCLUSION: Uncomplicated PermaCath placement as above. Filiberto Rodarte MD Chest CT 12/08/16 Signed Impressions: Service Date/Time: Thursday, December 08, 2016 14:02 - CONCLUSION: 1. Bilateral lower lobe consolidating airspace disease. 2. Small to moderate bilateral pleural effusions; larger on the left. 3. Cardiomegaly. 4. Endotracheal and nasogastric tubes in good position. Tutu Christianson MD Renal Ultrasound 12/07/16 Signed Impressions: Service Date/Time: November 07:54 - CONCLUSION: Unremarkable and stable bilateral renal ultrasound. No evidence of hydronephrosis. Baron Medrano MD Objective Remarks GENERAL: This is a well-nourished, well-developed patient, in no apparent distress. SKIN: Warm and dry. HEENT: Normocephalic. Pupils equal round and reactive. Nose without bleeding. Airway patent. NECK: Trachea midline. No JVD. Supple. CARDIOVASCULAR: Regular rate and rhythm without murmurs, gallops, or rubs. Rt SC Permacath. RESPIRATORY: Diminished bases. No wheezes, rales, or rhonchi. GASTROINTESTINAL: Abdomen soft, nondistended. Bowel Sounds hypoactive. Tenderness to palpate lower quadrant. MUSCULOSKELETAL: Extremities without clubbing, cyanosis, facial edema. NEUROLOGICAL: Lethargic/ drowsy. Oriented to place, person. Moves all extremities weakly. Normal speech. Procedures Echo 12/07/2016 Mildly dilated left ventricle. Wall thickness is normal. The left ventricular systolic function is normal with an estimated ejection fraction is 45-50%. There is distinct regional wall motion abnormalities with akinetic apex and possibly clot at the apex. Consider repeating study with contrast/Definity to better asses apex The right ventriclar size is upper limits of normal. The left atrial size is moderately dilated. The right atrial size is moderately dilated. Nrls-if-kcayuafy mitral valve regurgitation. There is mild tricuspid valve regurgitation. There is estimated mild pulmonary hypertension present (range 40-50 mmHg). The pulmonary valve is not well visualized. The inferior vena cava is dilated. There is less than 50% respiratory change in dimension of the inferior vena cava (abnormal). A/P Problem List: (1) Respiratory failure ICD Code: J96.90 - Respiratory failure, unspecified, unspecified whether with hypoxia or hypercapnia Status: Acute (2) Sepsis ICD Code: A41.9 - Sepsis, unspecified organism Status: Acute (3) Pneumonia ICD Code: J18.9 - Pneumonia, unspecified organism Status: Acute (4) left atrial thrombus Status: Acute (5) NSTEMI (non-ST elevated myocardial infarction) ICD Code: I21.4 - Non-ST elevation (NSTEMI) myocardial infarction Status: Resolved (6) ARF (acute renal failure) ICD Code: N17.9 - ARF (acute renal failure) Status: Acute (7) Diabetes mellitus ICD Code: E11.9 - Diabetes mellitus Status: Chronic (8) Morbid obesity ICD Code: E66.01 - Morbid (severe) obesity due to excess calories Status: Acute (9) Severe chronic obstructive pulmonary disease ICD Code: J44.9 - Chronic obstructive pulmonary disease, unspecified Status: Acute (10) CKD (chronic kidney disease) stage 4, GFR 15-29 ml/min ICD Code: N18.4 - Chronic kidney disease, stage 4 (severe) Status: Acute Assessment and Plan Mr. Mehta is a 66-year-old male with medical history significant for hypertension and diabetes and CVA who presented to the hospital with a chief complaint of shortness of breath and chest pain. The patient was diagnosed with NSTEMI. Echo was performed which was concerning for thrombus, but study was limited and a repeat was suggested. He has history of chronic kidney disease but worsening of his creatinine was noted. He was seen and evaluated by nephrology who started the patient on hemodialysis. CKD stage IV with GFR 8 Acute renal failure progressing to ESRD - nephrology on board, started on hemodialysis TTHSa - PermaCath placed. Vascular surgery unable to find adequate vein for AVF. - Kidney biopsy on 01/03/2017 --> diffuse and nodular diabetic glomerulosclerosis, segmental and global glomerular sclerosis, interstitial fibrosis and tubular atrophy severe. - follow UO, nonoliguric - monitor BMP - Will need HD in outpatient. Awaiting HD set up. S/P acute respiratory failure secondary to bilateral lower lobe pneumonias/ community acquired - resolved - Urine antigens, sputum culture, blood cultures were all negative. S/p abx treatment course with azithromycin and Rocephin. - Chest x-ray 01/12 clear and labs unremarkable for acute process - Continue guaifenesin and Acapella for cough - O2 if needed to keep sats >92%. - monitor respiratory status - CXR Normal examination. - Duonebs Hypercalcemia - Hold calcitriol - Hypercalcemia resolving - continue to hold Calcitriol. COPD - Continue Symbicort and Spiriva - Continue albuterol neb. - Not on exacerbation. NSTEMI Hypertension - Echo performed December 07 showed distinct regional wall abnormalities with a possible clot in the apex. - echo with Definity contrast did not appear to show any clots in LV. - Cardiology was consulted, stable from a cardiac standpoint and recommended continued aggressive risk factor modification - ASA 81 mg daily. Coreg 6.25 mg BID. Norvasc 10 mg daily. Clonidine to 0.3 mg po TID and hydralazine 50 mg by mouth daily 8 hour Diabetes mellitus, with hyperglycemia - Continue Levemir 37 units QHS and sliding scale insulin. - pre-meal insulin 8 units TIDAC - Monitor Accu-Cheks and adjust regimen as indicated - Check HgA1C - Improving BPH - continue Tamsulosin. Stable. Deconditioning: PT recommends SNF, generalized weakness likely due to prolonged hospitalization and multiple medical conditions as above. - Continue PT Sunday through Sunday while admitted Constipation, Abdominal pain - Pericolace BID - add Miralax daily, add bisacodyl - monitor for BM Heparin SQ for DVT prophylaxis. Discuss with patient, nursing, Dr. Link Discharge Planning Patient will need hemodialysis, not a [place] citizen. Not a safe discharge. Discussed with CM. 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
[2017-01-30] MEDS: BISACODYL 10 MG SUPP RECTAL PRN (17:49)
[2017-01-30] MEDS: TAMSULOSIN HCL 0.4 MG CAP PO SCH (20:56)
[2017-01-30] MEDS: HEPARIN SODIUM - SQ 10,000 UNITS/ML VIAL SQ SCH (20:56)
[2017-01-30] MEDS: INSULIN DETEMIR 100 UNITS/ML VIAL SQ SCH (20:59)
[2017-01-30 21:43] LABS: HEMOGLOBIN A1a 1.5 %; HEMOGLOBIN Ao 82.2 %; HEMOGLOBIN LA1C 2.2 %; HEMOGLOBIN P3 6.5 %
[2017-01-31] VITALS (8 sets, daily range): BP systolic 112–142; BP diastolic 62–80; PULSE 67–87; RESP 18–20; TEMP 97.6–99.3; O2SAT 95–100
[2017-01-31] MEDS: CHLORHEXIDINE GLUCONATE 2 % 1 PACK (2 CLOTHS) TOP SCH (04:00)
[2017-01-31] MEDS: hydrALAZINE HCL 50 MG TAB PO SCH ×3 (06:00→20:18)
[2017-01-31] MEDS: INSULIN NovoLIN REGULAR SUPPLEMENTAL SCALE SQ SCH ×4 (08:00→20:19)
[2017-01-31] MEDS: CHLORHEXIDINE 0.12% (ORAL KIT) 15 ML CUP MT SCH ×2 (08:00→20:00)
[2017-01-31] MEDS: INSULIN ASPART 1,000 UNITS/10 ML VIAL SQ SCH ×3 (08:00→17:07)
--- NOTE | 2017-01-31 08:56 | PD.RAD ---
Post Procedure Progress Note Pre Procedure Diagnosis: (1) CKD (chronic kidney disease) stage 4, GFR 15-29 ml/min Post Procedure Diagnosis: (1) CKD (chronic kidney disease) stage 4, GFR 15-29 ml/min Procedure Date: Jan 31, 2017 Supervising Radiologist: Filiberto Rodarte Proceduralist/Assist: Malathi Saavedra, RT(R), Ruthie Velasquez, RT(R) Anesthesia: Analgesia Plan of Activity Patient to Unit: Nursing Unit Patient Condition: Fair See PACS Report for procedural detail/treatment Central Venous Access Device Procedure 1 Right Internal Jugular Hemodialysis Catheter Tunneled Evaluation dual lumen Romanian: 14 PICC Line Length (cm): 19 Findings: Catheter in excellent position. Flushes and aspirates without difficulty. Discussed with dialysis. No intervention Filiberto Rodarte MD Jan 31, 2017 08:56
[2017-01-31] MEDS: SODIUM CHLORIDE 0.9% FLUSH 10 ML FLUSH IVF SCH (09:00)
[2017-01-31] MEDS: BUDESONIDE-FORMOTEROL 160/4.5 MCG INHALER INH SCH ×2 (09:00→20:17)
[2017-01-31] MEDS: ARTIFICIAL TEARS OPTH SOLN 15 ML BTL EACH EYE SCH ×3 (09:00→17:00)
[2017-01-31] MEDS: TIOTROPIUM BROMIDE 18 MCG INH INH SCH (09:00)
[2017-01-31] MEDS: POLYETHYLENE GLYCOL 17 GM PKG PO SCH (09:10)
[2017-01-31] MEDS: guaiFENesin E.R. 600 MG TAB PO SCH ×2 (09:12→20:17)
[2017-01-31] MEDS: cloNIDine HCL 0.3 MG TAB PO SCH ×3 (09:12→23:13)
[2017-01-31] MEDS: CALCIUM ACETATE 667 MG CAP PO SCH ×3 (09:12→17:05)
[2017-01-31] MEDS: HEPARIN SODIUM - SQ 10,000 UNITS/ML VIAL SQ SCH ×2 (09:12→20:19)
[2017-01-31] MEDS: CARVEDILOL 6.25 MG TAB PO SCH ×2 (09:13→20:18)
[2017-01-31] MEDS: DOCUSATE SODIUM 50 MG/SENNA 8.6 MG TAB PO SCH ×2 (09:13→20:20)
[2017-01-31] MEDS: ASPIRIN 81 MG CHEW TAB CHEW SCH (09:13)
[2017-01-31] MEDS: SODIUM CHLORIDE 0.9% FLUSH 10 ML FLUSH IV FLUSH SCH ×2 (09:15→20:20)
--- NOTE | 2017-01-31 10:49 | HHI.PR ---
Subjective Remarks Follow-up visit acute renal failure going on end-stage renal disease on hemodialysis, COPD, NSTEMI. He was seen and examined today. Patient is laying in bed appears to be tired and drowsy. States he had a bowel movement small amount BM this morning and he wants to move his bowels again now. Otherwise, denies chest pain, palpitations, increasing shortness of breath or dyspnea, nausea, vomiting, diarrhea. Objective Vitals Vital Signs Date Time Temp Pulse Resp B/P (MAP) Pulse Ox O2 Delivery O2 Flow Rate FiO2 01/31/17 04:00 96 Nasal Cannula 2.00 21 01/31/17 03:49 98.0 72 20 142/67 (92) 100 01/31/17 00:40 98.4 75 20 121/62 (81) 95 01/31/17 00:00 96 Nasal Cannula 2.00 21 01/30/17 20:25 97.9 79 18 137/63 (87) 100 01/30/17 20:00 96 Nasal Cannula 2.00 21 01/30/17 18:21 99 Nasal Cannula 2.00 01/30/17 16:08 Nasal Cannula 2.00 01/30/17 16:00 98.6 77 20 125/58 (80) 99 01/30/17 12:00 98.6 84 20 142/67 (92) 99 I/O 01/30/17 01/30/17 01/30/17 01/31/17 01/31/17 01/31/17 07:00 15:00 23:00 07:00 15:00 23:00 Intake Total 120 ml 100 ml 250 ml Output Total 1200 ml 0 ml Balance 120 ml -1100 ml 250 ml Intake Oral 120 ml 0 ml IV Total 100 ml 250 ml Output Urine Total 0 ml Hemodialysis 1200 ml # Voids 1 # Bowel Movements 1 1 Result Diagram: 01/30/17 0850 01/30/17 0850 Imaging Last Impressions Venous Access Device Injection 01/30/17 0000 Signed Impressions: Service Date/Time: Monday, January 30, 2017 00:00 - CONCLUSION: Right IJ PermCath is in excellent position and appears to be functioning appropriately. Filiberto Rodarte MD Chest X-Ray 01/28/17 0000 Signed Impressions: Service Date/Time: Saturday, January 28, 2017 14:00 - CONCLUSION: Normal examination. Right-sided dual-lumen catheter in good position. Yoni Bay MD Carotid Artery Ultrasound 01/10/17 0000 Signed Impressions: Service Date/Time: Tuesday, January 10, 2017 12:25 - CONCLUSION: Negative examination for a hemodynamically significant carotid stenosis. Marek Burnett MD FACR Upper Extremity Ultrasound 01/05/17 0000 Signed Impressions: Service Date/Time: Thursday, January 05, 2017 18:56 - CONCLUSION: Normal examination. Ji Martinez MD Renal Biopsy CT 01/03/17 Signed Impressions: Service Date/Time: Tuesday, January 03, 2017 13:28 - CONCLUSION: Uncomplicated CT guided biopsy. Ji Cedillo MD Central Venous Line 01/03/17 Signed Impressions: Service Date/Time: Tuesday, January 03, 2017 00:00 - CONCLUSION: Uncomplicated catheter removal. Filbierto Rodarte MD Catheter Placement X-Ray 01/03/17 Signed Impressions: Service Date/Time: Tuesday, January 03, 2017 14:27 - CONCLUSION: Uncomplicated PermaCath placement as above. Filiberto Rodarte MD Chest CT 12/08/16 0000 Signed Impressions: Service Date/Time: Thursday, December 08, 2016 14:02 - CONCLUSION: 1. Bilateral lower lobe consolidating airspace disease. 2. Small to moderate bilateral pleural effusions; larger on the left. 3. Cardiomegaly. 4. Endotracheal and nasogastric tubes in good position. Tutu Christianson MD Renal Ultrasound 12/07/16 0000 Signed Impressions: Service Date/Time: November 07:54 - CONCLUSION: Unremarkable and stable bilateral renal ultrasound. No evidence of hydronephrosis. Baron Medrano MD Objective Remarks GENERAL: This is a well-nourished, well-developed patient, in no apparent distress. SKIN: Warm and dry. HEENT: Normocephalic. Pupils equal round and reactive. Nose without bleeding. Airway patent. NECK: Trachea midline. No JVD. Supple. CARDIOVASCULAR: Regular rate and rhythm without murmurs, gallops, or rubs. Rt SC Permacath. RESPIRATORY: Diminished bases. No wheezes, rales, or rhonchi. GASTROINTESTINAL: Abdomen soft, nondistended. Bowel Sounds hypoactive. Tenderness to palpate lower quadrant. MUSCULOSKELETAL: Extremities without clubbing, cyanosis, facial edema. NEUROLOGICAL: Lethargic/ drowsy. Oriented to place, person. Moves all extremities weakly. Normal speech. Procedures Echo 12/07/2016 Mildly dilated left ventricle. Wall thickness is normal. The left ventricular systolic function is normal with an estimated ejection fraction is 45-50%. There is distinct regional wall motion abnormalities with akinetic apex and possibly clot at the apex. Consider repeating study with contrast/Definity to better asses apex The right ventriclar size is upper limits of normal. The left atrial size is moderately dilated. The right atrial size is moderately dilated. Hyib-kg-iozeuxlo mitral valve regurgitation. There is mild tricuspid valve regurgitation. There is estimated mild pulmonary hypertension present (range 40-50 mmHg). The pulmonary valve is not well visualized. The inferior vena cava is dilated. There is less than 50% respiratory change in dimension of the inferior vena cava (abnormal). A/P Problem List: (1) Respiratory failure ICD Code: J96.90 - Respiratory failure, unspecified, unspecified whether with hypoxia or hypercapnia Status: Acute (2) Sepsis ICD Code: A41.9 - Sepsis, unspecified organism Status: Acute (3) Pneumonia ICD Code: J18.9 - Pneumonia, unspecified organism Status: Acute (4) left atrial thrombus Status: Acute (5) NSTEMI (non-ST elevated myocardial infarction) ICD Code: I21.4 - Non-ST elevation (NSTEMI) myocardial infarction Status: Resolved (6) ARF (acute renal failure) ICD Code: N17.9 - ARF (acute renal failure) Status: Acute (7) Diabetes mellitus ICD Code: E11.9 - Diabetes mellitus Status: Chronic (8) Morbid obesity ICD Code: E66.01 - Morbid (severe) obesity due to excess calories Status: Acute (9) Severe chronic obstructive pulmonary disease ICD Code: J44.9 - Chronic obstructive pulmonary disease, unspecified Status: Acute (10) CKD (chronic kidney disease) stage 4, GFR 15-29 ml/min ICD Code: N18.4 - Chronic kidney disease, stage 4 (severe) Status: Acute Assessment and Plan Mr. Mehta is a 66-year-old male with medical history significant for hypertension and diabetes and CVA who presented to the hospital with a chief complaint of shortness of breath and chest pain. The patient was diagnosed with NSTEMI. Echo was performed which was concerning for thrombus, but study was limited and a repeat was suggested. He has history of chronic kidney disease but worsening of his creatinine was noted. He was seen and evaluated by nephrology who started the patient on hemodialysis. CKD stage IV with GFR 8 Acute renal failure progressing to ESRD - nephrology on board, started on hemodialysis TTHSa - PermaCath placed. Vascular surgery unable to find adequate vein for AVF. - Kidney biopsy on 01/03/2017 --> diffuse and nodular diabetic glomerulosclerosis, segmental and global glomerular sclerosis, interstitial fibrosis and tubular atrophy severe. - follow UO, nonoliguric - monitor BMP - Will need HD in outpatient. Awaiting HD set up in outpatient. S/P acute respiratory failure secondary to bilateral lower lobe pneumonias/ community acquired - resolved - Urine antigens, sputum culture, blood cultures were all negative. S/p abx treatment course with azithromycin and Rocephin. - Chest x-ray 01/12 clear and labs unremarkable for acute process - Continue guaifenesin and Acapella for cough - O2 if needed to keep sats >92%. - monitor respiratory status - CXR Normal examination. - Duonebs Hypercalcemia - Hold calcitriol - Hypercalcemia resolving - continue to hold Calcitriol. COPD - Continue Symbicort and Spiriva - Continue albuterol neb. - Not on exacerbation. NSTEMI Hypertension - Echo performed December 07 showed distinct regional wall abnormalities with a possible clot in the apex. - echo with Definity contrast did not appear to show any clots in LV. - Cardiology was consulted, stable from a cardiac standpoint and recommended continued aggressive risk factor modification - ASA 81 mg daily. Coreg 6.25 mg BID. Norvasc 10 mg daily. Clonidine to 0.3 mg po TID and hydralazine 50 mg by mouth daily 8 hour Diabetes mellitus, with hyperglycemia - Continue Levemir 37 units QHS and sliding scale insulin. - pre-meal insulin 8 units TIDAC - Monitor Accu-Cheks and adjust regimen as indicated - HgA1C 6.7 - Improving. Better control BPH - continue Tamsulosin. Stable. Deconditioning: PT recommends SNF, generalized weakness likely due to prolonged hospitalization and multiple medical conditions as above. - Continue PT Sunday through Sunday while admitted Constipation, Abdominal pain - Pericolace BID - add Miralax daily, add bisacodyl - monitor for BM - May need manual disimpaction Heparin SQ for DVT prophylaxis. Discuss with patient, nursing, Dr. Link Discharge Planning Patient will need hemodialysis, not a [place] citizen. Not a safe discharge. Discussed with CM. Problem Qualifiers (1) Respiratory failure: Qualified Codes: J96.00 - Acute respiratory failure, unspecified whether with hypoxia or hypercapnia (2) Sepsis: (3) Pneumonia: (4) ARF (acute renal failure): (5) Diabetes mellitus: Qualified Codes: E11.22 - Type 2 diabetes mellitus with diabetic chronic kidney disease; N18.4 - Chronic kidney disease, stage 4 (severe); Z79.4 - prison (current) use of insulin Marina Palacio Jan 31, 2017 10:49
[2017-01-31] MEDS ORDERED: BISACODYL 10 MG SUPP RECTAL ONE (11:15)
--- NOTE | 2017-01-31 13:08 | HHI.NPPN ---
Subjective History of Present Illness 66-year-old male with past medical history of hypertension, diabetes mellitus, history of cerebrovascular accident with left-sided weakness, hyperlipidemia, bronchial asthma, chronic kidney disease who was admitted because of shortness of breath and chest pain. I was called to see the patient because of elevated BUN and creatinine. The patient was diagnosed here with non-ST elevation LA. The patient has history of chronic kidney disease. Additional Remarks Patient is alert, no complain, no SOB. Objective Data Data Vital Signs Date Time Temp Pulse Resp B/P (MAP) Pulse Ox O2 Delivery O2 Flow Rate FiO2 01/31/17 12:00 98.7 80 20 112/65 (81) 99 01/31/17 11:37 96 Nasal Cannula 2.00 01/31/17 08:00 99.3 73 18 127/67 (87) 95 01/31/17 04:00 96 Nasal Cannula 2.00 21 01/31/17 03:49 98.0 72 20 142/67 (92) 100 01/31/17 00:40 98.4 75 20 121/62 (81) 95 01/31/17 00:00 96 Nasal Cannula 2.00 21 01/30/17 20:25 97.9 79 18 137/63 (87) 100 01/30/17 20:00 96 Nasal Cannula 2.00 21 01/30/17 18:21 99 Nasal Cannula 2.00 01/30/17 16:08 Nasal Cannula 2.00 01/30/17 16:00 98.6 77 20 125/58 (80) 99 -: 01/30/17 0850 01/30/17 0850 Physical Exam General Appearance: No Acute Distress, Comfortable Eyes Eye Exam: Pupils Equal Throat Throat Exam: Oral Mucosa Haugen & Moist Neck Neck Exam: Neck Supple Pulmonary Resp Exam: No Distress, Rhonchi, Decreased Bases, Diminished Breath Sounds Cardiology CV Exam: Regular, Normal Sinus Rhythm Gastrointestinal/Abdomen GI Exam: Soft, Non-Tender, Bowel Sounds Present Extremeties Extremities Exam: Moderate Edema Neurologic Neuro Exam: Alert, Awake Psychiatric Psych Exam: Appropriate Responses Assessment/Plan Assessment Summary: WILLIE/Acute Renal Failure, CHF, CKD Stage IV Problem List: (1) NSTEMI (non-ST elevated myocardial infarction) ICD Codes: I21.4 - Non-ST elevation (NSTEMI) myocardial infarction Status: Resolved (2) Diabetes mellitus ICD Codes: E11.9 - Diabetes mellitus Status: Chronic (3) Asthma ICD Codes: J45.909 - Asthma Status: Chronic (4) Shortness of breath ICD Codes: R06.02 - Shortness of breath Status: Acute (5) Leg edema ICD Codes: R60.0 - Leg edema Status: Acute (6) Hypertension ICD Codes: I10 - Hypertension Status: Chronic Plan Patient has been non oliguric, Creatinine is still elevated. Has proteinuria, serology negative. Added Phoslo as Po4 is elevated and calcitriol as Calcium is low. BP is better. Follow urine out put and watch for any renal recovery. Got the PermCath , has poor flow from Vascath. The Kidney Biopsy showing Diabetic and Hypertensive renal disease. Case management notes seen. HD to continue 3 times a week. Awaiting arrangements for out patient HD. AVF cannot be done as per vascular due to poor veins. Continue HD as per schedule. Problem Qualifiers (1) Diabetes mellitus: Qualified Codes: E11.22 - Type 2 diabetes mellitus with diabetic chronic kidney disease; N18.4 - Chronic kidney disease, stage 4 (severe); Z79.4 - retirement (current) use of insulin (2) Hypertension: Qualified Codes: I10 - Essential (primary) hypertension Zoey Carbone MD Jan 31, 2017 13:08
[2017-01-31] MEDS: TAMSULOSIN HCL 0.4 MG CAP PO SCH (20:17)
[2017-01-31] MEDS: INSULIN DETEMIR 100 UNITS/ML VIAL SQ SCH (20:18)
[2017-02-01] VITALS (8 sets, daily range): BP systolic 111–135; BP diastolic 62–76; PULSE 69–92; RESP 19–20; TEMP 97.2–98.9; O2SAT 94–100
[2017-02-01] MEDS: CHLORHEXIDINE GLUCONATE 2 % 1 PACK (2 CLOTHS) TOP SCH (02:10)
[2017-02-01] MEDS: diphenhydrAMINE HCL 25 MG CAP PO PRN (02:28)
[2017-02-01] MEDS: MORPHINE SULFATE 4 MG/ML INJ IV PUSH PRN (04:41)
[2017-02-01] MEDS: hydrALAZINE HCL 50 MG TAB PO SCH ×3 (04:46→22:54)
[2017-02-01] MEDS: INSULIN ASPART 1,000 UNITS/10 ML VIAL SQ SCH ×3 (07:55→17:18)
[2017-02-01] MEDS: INSULIN NovoLIN REGULAR SUPPLEMENTAL SCALE SQ SCH ×4 (07:58→20:30)
[2017-02-01] MEDS: CHLORHEXIDINE 0.12% (ORAL KIT) 15 ML CUP MT SCH ×2 (08:00→20:00)
[2017-02-01] MEDS: DOCUSATE SODIUM 50 MG/SENNA 8.6 MG TAB PO SCH ×2 (09:00→20:27)
[2017-02-01] MEDS: CALCIUM ACETATE 667 MG CAP PO SCH ×3 (09:00→17:19)
[2017-02-01] MEDS: POLYETHYLENE GLYCOL 17 GM PKG PO SCH (09:00)
[2017-02-01] MEDS: SODIUM CHLORIDE 0.9% FLUSH 10 ML FLUSH IVF SCH (09:00)
[2017-02-01] MEDS: EPOETIN ALFA 10,000 UNITS/ML VIAL IV PRN (11:08)
[2017-02-01] MEDS: GENTAMICIN SULFATE (DIALYSIS USE ONLY) 20 MG/2 ML VIAL IV PRN (11:08)
[2017-02-01] MEDS: HEPARIN SODIUM - IV 10,000 UNITS/10 ML VIAL PRN (11:08)
[2017-02-01] MEDS: ASPIRIN 81 MG CHEW TAB CHEW SCH (12:06)
[2017-02-01] MEDS: guaiFENesin E.R. 600 MG TAB PO SCH ×2 (12:07→20:27)
[2017-02-01] MEDS: CARVEDILOL 6.25 MG TAB PO SCH ×2 (12:07→20:27)
[2017-02-01] MEDS: cloNIDine HCL 0.3 MG TAB PO SCH ×3 (12:07→23:03)
[2017-02-01] MEDS: HEPARIN SODIUM - SQ 10,000 UNITS/ML VIAL SQ SCH ×2 (12:09→20:27)
[2017-02-01] MEDS: BUDESONIDE-FORMOTEROL 160/4.5 MCG INHALER INH SCH ×2 (12:10→20:25)
[2017-02-01] MEDS: ARTIFICIAL TEARS OPTH SOLN 15 ML BTL EACH EYE SCH ×3 (12:10→17:22)
[2017-02-01] MEDS: TIOTROPIUM BROMIDE 18 MCG INH INH SCH (12:11)
[2017-02-01] MEDS: SODIUM CHLORIDE 0.9% FLUSH 10 ML FLUSH IV FLUSH SCH ×2 (12:16→20:27)
--- NOTE | 2017-02-01 14:04 | HHI.PR ---
Subjective Remarks Follow-up visit acute renal failure going on end-stage renal disease on hemodialysis, COPD, NSTEMI. Seen and examined today. Patient is laying in bed appears not motivated and depressed. Reports back pain when sitting up and gets relieved when laying down. Otherwise, denies chest pain, palpitations, increasing shortness of breath or dyspnea, nausea, vomiting, diarrhea Objective Vitals Vital Signs Date Time Temp Pulse Resp B/P (MAP) Pulse Ox O2 Delivery O2 Flow Rate FiO2 02/01/17 12:00 98.0 92 20 111/65 (80) 100 02/01/17 07:54 98.9 69 20 117/64 (81) 94 02/01/17 06:00 97.2 70 19 130/76 (94) 97 02/01/17 02:42 Nasal Cannula 2.00 02/01/17 00:00 97.9 69 20 125/76 (92) 96 01/31/17 20:00 Nasal Cannula 2.00 01/31/17 20:00 98.1 67 20 115/80 (92) 96 01/31/17 17:46 99 Nasal Cannula 2.00 01/31/17 16:00 97.6 68 18 127/67 (87) 99 I/O 01/31/17 01/31/17 01/31/17 02/01/17 02/01/17 02/01/17 07:00 15:00 23:00 07:00 15:00 23:00 Intake Total 560 ml 875 ml 1 ml Output Total 0 ml Balance 560 ml 875 ml 1 ml Intake Oral 560 ml 875 ml IV Total 1 ml Output Urine Total 0 ml # Voids 3 2 # Bowel Movements 3 0 Result Diagram: 01/30/17 0850 01/30/17 0850 Imaging Last Impressions Venous Access Device Injection 01/30/17 0000 Signed Impressions: Service Date/Time: Monday, January 30, 2017 00:00 - CONCLUSION: Right IJ PermCath is in excellent position and appears to be functioning appropriately. Filiberto Rodarte MD Chest X-Ray 01/28/17 0000 Signed Impressions: Service Date/Time: Saturday, January 28, 2017 14:00 - CONCLUSION: Normal examination. Right-sided dual-lumen catheter in good position. Yoni Bay MD Carotid Artery Ultrasound 9/13/17 0000 Signed Impressions: Service Date/Time: Tuesday, January 10, 2017 12:25 - CONCLUSION: Negative examination for a hemodynamically significant carotid stenosis. Marek Burnett MD FACR Upper Extremity Ultrasound 01/05/17 Signed Impressions: Service Date/Time: Thursday, January 05, 2017 18:56 - CONCLUSION: Normal examination. Ji Martinez MD Renal Biopsy CT 01/03/17 Signed Impressions: Service Date/Time: Tuesday, January 03, 2017 13:28 - CONCLUSION: Uncomplicated CT guided biopsy. Ji Cedillo MD Central Venous Line 01/03/17 Signed Impressions: Service Date/Time: Tuesday, January 03, 2017 00:00 - CONCLUSION: Uncomplicated catheter removal. Filiberto Rodarte MD Catheter Placement X-Ray 01/03/17 Signed Impressions: Service Date/Time: Tuesday, January 03, 2017 14:27 - CONCLUSION: Uncomplicated PermaCath placement as above. Filiberto Rodarte MD Chest CT 12/08/16 Signed Impressions: Service Date/Time: Thursday, December 08, 2016 14:02 - CONCLUSION: 1. Bilateral lower lobe consolidating airspace disease. 2. Small to moderate bilateral pleural effusions; larger on the left. 3. Cardiomegaly. 4. Endotracheal and nasogastric tubes in good position. Tutu Christianson MD Renal Ultrasound 12/07/16 Signed Impressions: Service Date/Time: November 07:54 - CONCLUSION: Unremarkable and stable bilateral renal ultrasound. No evidence of hydronephrosis. Baron Medrano MD Objective Remarks GENERAL: This is a well-nourished, well-developed patient, in no apparent distress. SKIN: Warm and dry. HEENT: Normocephalic. Pupils equal round and reactive. Nose without bleeding. Airway patent. NECK: Trachea midline. No JVD. Supple. CARDIOVASCULAR: Regular rate and rhythm without murmurs, gallops, or rubs. Rt SC Permacath. RESPIRATORY: Diminished bases. No wheezes, rales, or rhonchi. GASTROINTESTINAL: Abdomen soft, nondistended. Bowel Sounds hypoactive. Tenderness to palpate lower quadrant. MUSCULOSKELETAL: Extremities without clubbing, cyanosis, facial edema. NEUROLOGICAL: Lethargic/ drowsy. Oriented to place, person. Moves all extremities weakly. Normal speech. Procedures Echo 12/07/2016 Mildly dilated left ventricle. Wall thickness is normal. The left ventricular systolic function is normal with an estimated ejection fraction is 45-50%. There is distinct regional wall motion abnormalities with akinetic apex and possibly clot at the apex. Consider repeating study with contrast/Definity to better asses apex The right ventriclar size is upper limits of normal. The left atrial size is moderately dilated. The right atrial size is moderately dilated. [id number] mitral valve regurgitation. There is mild tricuspid valve regurgitation. There is estimated mild pulmonary hypertension present (range 40-50 mmHg). The pulmonary valve is not well visualized. The inferior vena cava is dilated. There is less than 50% respiratory change in dimension of the inferior vena cava (abnormal). A/P Problem List: (1) Respiratory failure ICD Code: J96.90 - Respiratory failure, unspecified, unspecified whether with hypoxia or hypercapnia Status: Acute (2) Sepsis ICD Code: A41.9 - Sepsis, unspecified organism Status: Acute (3) Pneumonia ICD Code: J18.9 - Pneumonia, unspecified organism Status: Acute (4) left atrial thrombus Status: Acute (5) NSTEMI (non-ST elevated myocardial infarction) ICD Code: I21.4 - Non-ST elevation (NSTEMI) myocardial infarction Status: Resolved (6) ARF (acute renal failure) ICD Code: N17.9 - ARF (acute renal failure) Status: Acute (7) Diabetes mellitus ICD Code: E11.9 - Diabetes mellitus Status: Chronic (8) Morbid obesity ICD Code: E66.01 - Morbid (severe) obesity due to excess calories Status: Acute (9) Severe chronic obstructive pulmonary disease ICD Code: J44.9 - Chronic obstructive pulmonary disease, unspecified Status: Acute (10) CKD (chronic kidney disease) stage 4, GFR 15-29 ml/min ICD Code: N18.4 - Chronic kidney disease, stage 4 (severe) Status: Acute Assessment and Plan Mr. Mehta is a 66-year-old male with medical history significant for hypertension and diabetes and CVA who presented to the hospital with a chief complaint of shortness of breath and chest pain. The patient was diagnosed with NSTEMI. Echo was performed which was concerning for thrombus, but study was limited and a repeat was suggested. He has history of chronic kidney disease but worsening of his creatinine was noted. He was seen and evaluated by nephrology who started the patient on hemodialysis. CKD stage IV with GFR 8 Acute renal failure progressing to ESRD - nephrology on board, started on hemodialysis TTHSa - PermaCath placed. Vascular surgery unable to find adequate vein for AVF. - Kidney biopsy on 01/03/2017 --> diffuse and nodular diabetic glomerulosclerosis, segmental and global glomerular sclerosis, interstitial fibrosis and tubular atrophy severe. - follow UO, nonoliguric - monitor BMP - Will need HD in outpatient. Awaiting HD set up in outpatient. S/P acute respiratory failure secondary to bilateral lower lobe pneumonias/ community acquired - resolved - Urine antigens, sputum culture, blood cultures were all negative. S/p abx treatment course with azithromycin and Rocephin. - Chest x-ray 01/12 clear and labs unremarkable for acute process - Continue guaifenesin and Acapella for cough - O2 if needed to keep sats >92%. - monitor respiratory status - CXR Normal examination. - Duonebs Hypercalcemia - Hold calcitriol - Hypercalcemia resolving - continue to hold Calcitriol. COPD - Continue Symbicort and Spiriva - Continue albuterol neb. - Not on exacerbation. NSTEMI Hypertension - Echo performed December 07 showed distinct regional wall abnormalities with a possible clot in the apex. - echo with Definity contrast did not appear to show any clots in LV. - Cardiology was consulted, stable from a cardiac standpoint and recommended continued aggressive risk factor modification - ASA 81 mg daily. Coreg 6.25 mg BID. Norvasc 10 mg daily. Clonidine to 0.3 mg po TID and hydralazine 50 mg by mouth daily 8 hour Diabetes mellitus, with hyperglycemia - Continue Levemir 37 units QHS and sliding scale insulin. - pre-meal insulin 8 units TIDAC - Monitor Accu-Cheks and adjust regimen as indicated - HgA1C 6.7 - Improving. Better control BPH - continue Tamsulosin. Stable. Deconditioning: PT recommends SNF, generalized weakness likely due to prolonged hospitalization and multiple medical conditions as above. - Continue PT Sunday through Sunday while admitted Constipation, Abdominal pain - Pericolace BID - add Miralax daily, add bisacodyl - monitor for BM Heparin SQ for DVT prophylaxis. Discuss with patient, nursing, Dr. Link Discharge Planning Patient will need hemodialysis, not a [place] citizen. Not a safe discharge. Discussed with CM. 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
[2017-02-01] MEDS: INSULIN DETEMIR 100 UNITS/ML VIAL SQ SCH (20:26)
[2017-02-01] MEDS: TAMSULOSIN HCL 0.4 MG CAP PO SCH (20:27)
--- NOTE | 2017-02-01 21:36 | HHI.NPPN ---
Subjective History of Present Illness 66-year-old male with past medical history of hypertension, diabetes mellitus, history of cerebrovascular accident with left-sided weakness, hyperlipidemia, bronchial asthma, chronic kidney disease who was admitted because of shortness of breath and chest pain. I was called to see the patient because of elevated BUN and creatinine. The patient was diagnosed here with non-ST elevation IA. The patient has history of chronic kidney disease. Additional Remarks Patient is alert, no complain, no SOB, clinically same. Objective Data Data 02/01/17 02/02/17 19:00 07:00 Intake Total 481 ml Balance 481 ml Intake Oral 480 ml IV Total 1 ml # Voids 1 # Bowel Movements 0 Vital Signs Date Time Temp Pulse Resp B/P (MAP) Pulse Ox O2 Delivery O2 Flow Rate FiO2 02/01/17 17:48 99 Nasal Cannula 2.00 02/01/17 16:00 98.0 82 20 135/62 (86) 99 02/01/17 14:26 82 113/65 (81) 02/01/17 14:24 Nasal Cannula 2.00 02/01/17 12:00 98.0 92 20 111/65 (80) 100 02/01/17 07:54 98.9 69 20 117/64 (81) 94 02/01/17 06:00 97.2 70 19 130/76 (94) 97 02/01/17 02:42 Nasal Cannula 2.00 02/01/17 00:00 97.9 69 20 125/76 (92) 96 -: 01/30/17 0850 01/30/17 0850 Physical Exam General Appearance: No Acute Distress, Comfortable Eyes Eye Exam: Pupils Equal Throat Throat Exam: Oral Mucosa Bucklin & Moist Neck Neck Exam: Neck Supple Pulmonary Resp Exam: No Distress, Rhonchi, Decreased Bases, Diminished Breath Sounds Cardiology CV Exam: Regular, Normal Sinus Rhythm Gastrointestinal/Abdomen GI Exam: Soft, Non-Tender, Bowel Sounds Present Extremeties Extremities Exam: Moderate Edema Neurologic Neuro Exam: Alert, Awake Psychiatric Psych Exam: Appropriate Responses Assessment/Plan Assessment Summary: WILLIE/Acute Renal Failure, CHF, CKD Stage IV Problem List: (1) NSTEMI (non-ST elevated myocardial infarction) ICD Codes: I21.4 - Non-ST elevation (NSTEMI) myocardial infarction Status: Resolved (2) Diabetes mellitus ICD Codes: E11.9 - Diabetes mellitus Status: Chronic (3) Asthma ICD Codes: J45.909 - Asthma Status: Chronic (4) Shortness of breath ICD Codes: R06.02 - Shortness of breath Status: Acute (5) Leg edema ICD Codes: R60.0 - Leg edema Status: Acute (6) Hypertension ICD Codes: I10 - Hypertension Status: Chronic Plan Patient has been non oliguric, Creatinine is still elevated. Has proteinuria, serology negative. Added Phoslo as Po4 is elevated and calcitriol as Calcium is low. BP is better. Follow urine out put and watch for any renal recovery. Got the PermCath , has poor flow from Vascath. The Kidney Biopsy showing Diabetic and Hypertensive renal disease. Case management notes seen. AVF cannot be done as per vascular due to poor veins. HD to continue 3 times a week. Awaiting arrangements for out patient HD. 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
[2017-02-02] VITALS (9 sets, daily range): BP systolic 110–127; BP diastolic 58–68; PULSE 64–77; RESP 16–23; TEMP 98–99.1; O2SAT 94–99
[2017-02-02] MEDS: CHLORHEXIDINE GLUCONATE 2 % 1 PACK (2 CLOTHS) TOP SCH (04:00)
[2017-02-02] MEDS: hydrALAZINE HCL 50 MG TAB PO SCH ×3 (05:26→20:54)
[2017-02-02] MEDS: CHLORHEXIDINE 0.12% (ORAL KIT) 15 ML CUP MT SCH ×2 (08:00→20:00)
[2017-02-02] MEDS: INSULIN NovoLIN REGULAR SUPPLEMENTAL SCALE SQ SCH ×4 (08:07→20:51)
[2017-02-02] MEDS: INSULIN ASPART 1,000 UNITS/10 ML VIAL SQ SCH ×3 (08:08→17:44)
[2017-02-02] MEDS: SODIUM CHLORIDE 0.9% FLUSH 10 ML FLUSH IV FLUSH SCH ×2 (08:08→20:49)
[2017-02-02] MEDS: HEPARIN SODIUM - SQ 10,000 UNITS/ML VIAL SQ SCH ×2 (08:11→20:48)
[2017-02-02] MEDS: DOCUSATE SODIUM 50 MG/SENNA 8.6 MG TAB PO SCH ×2 (08:11→20:48)
[2017-02-02] MEDS: guaiFENesin E.R. 600 MG TAB PO SCH ×2 (08:11→20:49)
[2017-02-02] MEDS: CARVEDILOL 6.25 MG TAB PO SCH ×2 (08:11→20:49)
[2017-02-02] MEDS: cloNIDine HCL 0.3 MG TAB PO SCH ×2 (08:11→16:36)
[2017-02-02] MEDS: CALCIUM ACETATE 667 MG CAP PO SCH ×3 (08:11→17:43)
[2017-02-02] MEDS: POLYETHYLENE GLYCOL 17 GM PKG PO SCH (08:11)
[2017-02-02] MEDS: ASPIRIN 81 MG CHEW TAB CHEW SCH (08:11)
[2017-02-02] MEDS: BUDESONIDE-FORMOTEROL 160/4.5 MCG INHALER INH SCH ×2 (08:14→20:49)
[2017-02-02] MEDS: TIOTROPIUM BROMIDE 18 MCG INH INH SCH (08:14)
[2017-02-02] MEDS: ARTIFICIAL TEARS OPTH SOLN 15 ML BTL EACH EYE SCH ×3 (08:15→17:42)
[2017-02-02] MEDS: SODIUM CHLORIDE 0.9% FLUSH 10 ML FLUSH IVF SCH (09:00)
--- NOTE | 2017-02-02 09:50 | HHI.PR ---
Subjective Remarks Follow-up visit acute renal failure going on end-stage renal disease on hemodialysis, COPD, NSTEMI. Patient seen and examined today. Patient is laying in bed appears not motivated. Ask if he was depressed states he is not, states "just tired." As per nursing no acute issues overnight. On RA O2 sat checked 93-94%. Denies chest pain, palpitations, Denies shortness of breath or dyspnea, nausea, vomiting, diarrhea Objective Vitals Vital Signs Date Time Temp Pulse Resp B/P (MAP) Pulse Ox O2 Delivery O2 Flow Rate FiO2 02/02/17 08:30 Nasal Cannula 2.00 02/02/17 08:04 97 21 02/02/17 08:00 99.1 77 18 127/65 (85) 99 02/02/17 04:00 98.3 70 23 119/58 (78) 97 02/02/17 00:00 98.9 66 21 125/67 (86) 94 02/01/17 20:15 Nasal Cannula 2.00 02/01/17 20:00 98.6 69 19 124/66 (85) 94 02/01/17 17:48 99 Nasal Cannula 2.00 02/01/17 16:00 98.0 82 20 135/62 (86) 99 02/01/17 14:26 82 113/65 (81) 02/01/17 14:24 Nasal Cannula 2.00 02/01/17 12:00 98.0 92 20 111/65 (80) 100 I/O 02/01/17 02/01/17 02/01/17 02/02/17 02/02/17 02/02/17 07:00 15:00 23:00 07:00 15:00 23:00 Intake Total 875 ml 1 ml 480 ml 560 ml Balance 875 ml 1 ml 480 ml 560 ml Intake Oral 875 ml 480 ml 560 ml IV Total 1 ml # Voids 2 1 2 # Bowel Movements 0 0 0 Result Diagram: 01/30/1750 01/30/1750 Imaging Last Impressions Venous Access Device Injection 01/30/17 0000 Signed Impressions: Service Date/Time: Monday, January 30, 2017 00:00 - CONCLUSION: Right IJ PermCath is in excellent position and appears to be functioning appropriately. Filiberto Rodarte MD Chest X-Ray 10/1/17 0000 Signed Impressions: Service Date/Time: Saturday, January 28, 2017 14:00 - CONCLUSION: Normal examination. Right-sided dual-lumen catheter in good position. Yoni Bay MD Carotid Artery Ultrasound 01/10/17 Signed Impressions: Service Date/Time: Tuesday, January 10, 2017 12:25 - CONCLUSION: Negative examination for a hemodynamically significant carotid stenosis. Marek Burnett MD FACR Upper Extremity Ultrasound 01/05/17 Signed Impressions: Service Date/Time: Thursday, January 05, 2017 18:56 - CONCLUSION: Normal examination. Ji Martinez MD Renal Biopsy CT 01/03/17 Signed Impressions: Service Date/Time: Tuesday, January 03, 2017 13:28 - CONCLUSION: Uncomplicated CT guided biopsy. Ji Cedillo MD Central Venous Line 01/03/17 Signed Impressions: Service Date/Time: Tuesday, January 03, 2017 00:00 - CONCLUSION: Uncomplicated catheter removal. Filiberto Rodarte MD Catheter Placement X-Ray 01/03/17 Signed Impressions: Service Date/Time: Tuesday, January 03, 2017 14:27 - CONCLUSION: Uncomplicated PermaCath placement as above. Filiberto Rodarte MD Chest CT 12/08/16 Signed Impressions: Service Date/Time: Thursday, December 08, 2016 14:02 - CONCLUSION: 1. Bilateral lower lobe consolidating airspace disease. 2. Small to moderate bilateral pleural effusions; larger on the left. 3. Cardiomegaly. 4. Endotracheal and nasogastric tubes in good position. Tutu Christianson MD Renal Ultrasound 12/07/16 0000 Signed Impressions: Service Date/Time: November 07:54 - CONCLUSION: Unremarkable and stable bilateral renal ultrasound. No evidence of hydronephrosis. Baron Medrano MD Objective Remarks GENERAL: This is a well-nourished, well-developed patient, in no apparent distress. SKIN: Warm and dry. HEENT: Normocephalic. Pupils equal round and reactive. Nose without bleeding. Airway patent. NECK: Trachea midline. No JVD. Supple. CARDIOVASCULAR: Regular rate and rhythm without murmurs, gallops, or rubs. Rt SC Permacath. RESPIRATORY: Diminished bases. No wheezes, rales, or rhonchi. GASTROINTESTINAL: Abdomen soft, nondistended. Bowel Sounds hypoactive. Tenderness to palpate lower quadrant. MUSCULOSKELETAL: Extremities without clubbing, cyanosis, facial edema. NEUROLOGICAL: Lethargic/ drowsy. Oriented to place, person. Moves all extremities weakly. Normal speech. Procedures Echo 12/07/2016 Mildly dilated left ventricle. Wall thickness is normal. The left ventricular systolic function is normal with an estimated ejection fraction is 45-50%. There is distinct regional wall motion abnormalities with akinetic apex and possibly clot at the apex. Consider repeating study with contrast/Definity to better asses apex The right ventriclar size is upper limits of normal. The left atrial size is moderately dilated. The right atrial size is moderately dilated. [id number] mitral valve regurgitation. There is mild tricuspid valve regurgitation. There is estimated mild pulmonary hypertension present (range 40-50 mmHg). The pulmonary valve is not well visualized. The inferior vena cava is dilated. There is less than 50% respiratory change in dimension of the inferior vena cava (abnormal). A/P Problem List: (1) Respiratory failure ICD Code: J96.90 - Respiratory failure, unspecified, unspecified whether with hypoxia or hypercapnia Status: Acute (2) Sepsis ICD Code: A41.9 - Sepsis, unspecified organism Status: Acute (3) Pneumonia ICD Code: J18.9 - Pneumonia, unspecified organism Status: Acute (4) left atrial thrombus Status: Acute (5) NSTEMI (non-ST elevated myocardial infarction) ICD Code: I21.4 - Non-ST elevation (NSTEMI) myocardial infarction Status: Resolved (6) ARF (acute renal failure) ICD Code: N17.9 - ARF (acute renal failure) Status: Acute (7) Diabetes mellitus ICD Code: E11.9 - Diabetes mellitus Status: Chronic (8) Morbid obesity ICD Code: E66.01 - Morbid (severe) obesity due to excess calories Status: Acute (9) Severe chronic obstructive pulmonary disease ICD Code: J44.9 - Chronic obstructive pulmonary disease, unspecified Status: Acute (10) CKD (chronic kidney disease) stage 4, GFR 15-29 ml/min ICD Code: N18.4 - Chronic kidney disease, stage 4 (severe) Status: Acute Assessment and Plan Mr. Mehta is a 66-year-old male with medical history significant for hypertension and diabetes and CVA who presented to the hospital with a chief complaint of shortness of breath and chest pain. The patient was diagnosed with NSTEMI. Echo was performed which was concerning for thrombus, but study was limited and a repeat was suggested. He has history of chronic kidney disease but worsening of his creatinine was noted. He was seen and evaluated by nephrology who started the patient on hemodialysis. CKD stage IV with GFR 8 Acute renal failure progressing to ESRD - nephrology on board, started on hemodialysis TTHSa - PermaCath placed. Vascular surgery unable to find adequate vein for AVF. - Kidney biopsy on 01/03/2017 --> diffuse and nodular diabetic glomerulosclerosis, segmental and global glomerular sclerosis, interstitial fibrosis and tubular atrophy severe. - follow UO, nonoliguric - monitor BMP - Will need HD in outpatient. Awaiting HD set up in outpatient. S/P acute respiratory failure secondary to bilateral lower lobe pneumonias/ community acquired - resolved - Urine antigens, sputum culture, blood cultures were all negative. S/p abx treatment course with azithromycin and Rocephin. - Chest x-ray 01/12 clear and labs unremarkable for acute process - Continue guaifenesin and Acapella for cough - O2 if needed to keep sats >92%. - monitor respiratory status - CXR Normal examination. - Duonebs Hypercalcemia - Hold calcitriol - Hypercalcemia resolving - continue to hold Calcitriol. COPD - Continue Symbicort and Spiriva - Continue albuterol neb. - Not on exacerbation. NSTEMI Hypertension - Echo performed December 07 showed distinct regional wall abnormalities with a possible clot in the apex. - echo with Definity contrast did not appear to show any clots in LV. - Cardiology was consulted, stable from a cardiac standpoint and recommended continued aggressive risk factor modification - ASA 81 mg daily. Coreg 6.25 mg BID. Norvasc 10 mg daily. Clonidine to 0.3 mg po TID and hydralazine 50 mg by mouth daily 8 hour Diabetes mellitus, with hyperglycemia - Continue Levemir 37 units QHS and sliding scale insulin. - pre-meal insulin 8 units TIDAC - Monitor Accu-Cheks and adjust regimen as indicated - HgA1C 6.7 - Improving. Better control BPH - continue Tamsulosin. Stable. Deconditioning: PT recommends SNF, generalized weakness likely due to prolonged hospitalization and multiple medical conditions as above. 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 Constipation, Abdominal pain - Pericolace BID - add Miralax daily, add bisacodyl - monitor for BM Heparin SQ for DVT prophylaxis. Discuss with patient, nursing, Dr. Link Discharge Planning Patient will need hemodialysis, not a [place] citizen. Not a safe discharge. Discussed with CM. Problem Qualifiers (1) Respiratory failure: Qualified Codes: J96.00 - Acute respiratory failure, unspecified whether with hypoxia or hypercapnia (2) Sepsis: (3) Pneumonia: (4) ARF (acute renal failure): (5) Diabetes mellitus: Qualified Codes: E11.22 - Type 2 diabetes mellitus with diabetic chronic kidney disease; N18.4 - Chronic kidney disease, stage 4 (severe); Z79.4 - skilled nursing (current) use of insulin Marina Palacio Feb 02, 2017 09:50
--- NOTE | 2017-02-02 11:15 | HHI.NPPN ---
Subjective History of Present Illness 66-year-old male with past medical history of hypertension, diabetes mellitus, history of cerebrovascular accident with left-sided weakness, hyperlipidemia, bronchial asthma, chronic kidney disease who was admitted because of shortness of breath and chest pain. I was called to see the patient because of elevated BUN and creatinine. The patient was diagnosed here with non-ST elevation [place]. The patient has history of chronic kidney disease. Additional Remarks Patient is alert, no complain, no SOB, lying in the bed most of the time. Objective Data Data Vital Signs Date Time Temp Pulse Resp B/P (MAP) Pulse Ox O2 Delivery O2 Flow Rate FiO2 02/02/17 08:30 Nasal Cannula 2.00 02/02/17 08:04 97 21 02/02/17 08:00 99.1 77 18 127/65 (85) 99 02/02/17 04:00 98.3 70 23 119/58 (78) 97 02/02/17 00:00 98.9 66 21 125/67 (86) 94 02/01/17 20:15 Nasal Cannula 2.00 02/01/17 20:00 98.6 69 19 124/66 (85) 94 02/01/17 17:48 99 Nasal Cannula 2.00 02/01/17 16:00 98.0 82 20 135/62 (86) 99 02/01/17 14:26 82 113/65 (81) 02/01/17 14:24 Nasal Cannula 2.00 02/01/17 12:00 98.0 92 20 111/65 (80) 100 -: 01/30/17 0850 01/30/17 0850 Physical Exam General Appearance: No Acute Distress, Comfortable Eyes Eye Exam: Pupils Equal Throat Throat Exam: Oral Mucosa [place] & Moist Neck Neck Exam: Neck Supple Pulmonary Resp Exam: No Distress, Rhonchi, Decreased Bases, Diminished Breath Sounds Cardiology CV Exam: Regular, Normal Sinus Rhythm Gastrointestinal/Abdomen GI Exam: Soft, Non-Tender, Bowel Sounds Present Extremeties Extremities Exam: Moderate Edema Neurologic Neuro Exam: Alert, Awake Psychiatric Psych Exam: Appropriate Responses Assessment/Plan Assessment Summary: WILLIE/Acute Renal Failure, CHF, CKD Stage IV Problem List: (1) NSTEMI (non-ST elevated myocardial infarction) ICD Codes: I21.4 - Non-ST elevation (NSTEMI) myocardial infarction Status: Resolved (2) Diabetes mellitus ICD Codes: E11.9 - Diabetes mellitus Status: Chronic (3) Asthma ICD Codes: J45.909 - Asthma Status: Chronic (4) Shortness of breath ICD Codes: R06.02 - Shortness of breath Status: Acute (5) Leg edema ICD Codes: R60.0 - Leg edema Status: Acute (6) Hypertension ICD Codes: I10 - Hypertension Status: Chronic Plan Patient has been non oliguric, Creatinine is still elevated. Has proteinuria, serology negative. Added Phoslo as Po4 is elevated and calcitriol as Calcium is low. BP is better. Follow urine out put and watch for any renal recovery. Got the PermCath , has poor flow from Vascath. The Kidney Biopsy showing Diabetic and Hypertensive renal disease. Case management notes seen. AVF cannot be done as per vascular due to poor veins. HD to continue 3 times a week. Awaiting arrangements for out patient HD. HD again in AM. 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
[2017-02-02] MEDS: TAMSULOSIN HCL 0.4 MG CAP PO SCH (20:49)
[2017-02-02] MEDS: INSULIN DETEMIR 100 UNITS/ML VIAL SQ SCH (20:50)
[2017-02-03] VITALS: BP 120/61; PULSE 65; RESP 19; TEMP 98.6; O2SAT 98
[2017-02-03] MEDS: cloNIDine HCL 0.3 MG TAB PO SCH ×3 (00:30→17:27)
[2017-02-03] MEDS: MORPHINE SULFATE 4 MG/ML INJ IV PUSH PRN ×4 (02:14→22:33)
[2017-02-03 04:00] VITALS: BP 127/69; PULSE 62; RESP 22; TEMP 98.4; O2SAT 95
[2017-02-03] MEDS: CHLORHEXIDINE GLUCONATE 2 % 1 PACK (2 CLOTHS) TOP SCH (04:00)
[2017-02-03] MEDS: hydrALAZINE HCL 50 MG TAB PO SCH ×3 (05:29→20:50)
[2017-02-03 08:00] VITALS: BP 137/86; PULSE 72; RESP 20; TEMP 98; O2SAT 95
[2017-02-03] MEDS: INSULIN ASPART 1,000 UNITS/10 ML VIAL SQ SCH ×3 (08:00→17:00)
[2017-02-03] MEDS: INSULIN NovoLIN REGULAR SUPPLEMENTAL SCALE SQ SCH ×4 (08:00→20:51)
[2017-02-03] MEDS: CHLORHEXIDINE 0.12% (ORAL KIT) 15 ML CUP MT SCH ×2 (08:00→20:00)
[2017-02-03] MEDS: guaiFENesin E.R. 600 MG TAB PO SCH ×2 (08:15→20:50)
[2017-02-03] MEDS: DOCUSATE SODIUM 50 MG/SENNA 8.6 MG TAB PO SCH ×2 (08:15→20:50)
[2017-02-03] MEDS: CARVEDILOL 6.25 MG TAB PO SCH ×2 (08:15→20:50)
[2017-02-03] MEDS: ASPIRIN 81 MG CHEW TAB CHEW SCH (08:15)
[2017-02-03] MEDS: CALCIUM ACETATE 667 MG CAP PO SCH ×3 (08:16→17:27)
[2017-02-03] MEDS: POLYETHYLENE GLYCOL 17 GM PKG PO SCH (08:16)
[2017-02-03] MEDS: HEPARIN SODIUM - SQ 10,000 UNITS/ML VIAL SQ SCH ×2 (08:16→20:50)
[2017-02-03] MEDS: TIOTROPIUM BROMIDE 18 MCG INH INH SCH (08:21)
[2017-02-03] MEDS: BUDESONIDE-FORMOTEROL 160/4.5 MCG INHALER INH SCH ×2 (08:21→21:00)
[2017-02-03] MEDS: ARTIFICIAL TEARS OPTH SOLN 15 ML BTL EACH EYE SCH ×3 (08:21→17:27)
[2017-02-03] MEDS: SODIUM CHLORIDE 0.9% FLUSH 10 ML FLUSH IVF SCH (08:22)
[2017-02-03] MEDS: SODIUM CHLORIDE 0.9% FLUSH 10 ML FLUSH IV FLUSH SCH ×2 (08:22→20:51)
[2017-02-03] MEDS: RESP: ALBUTEROL 2.5 MG/IPRATROPIUM 0.5 MG NEB (PRN) NEB ×2 (10:30→22:53)
--- NOTE | 2017-02-03 11:14 | HHI.NPPN ---
Subjective History of Present Illness 66-year-old male with past medical history of hypertension, diabetes mellitus, history of cerebrovascular accident with left-sided weakness, hyperlipidemia, bronchial asthma, chronic kidney disease who was admitted because of shortness of breath and chest pain. I was called to see the patient because of elevated BUN and creatinine. The patient was diagnosed here with non-ST elevation [place]. The patient has history of chronic kidney disease. Additional Remarks Patient is alert, no complain, has SOB off and on, now on HD. Objective Data Data Vital Signs Date Time Temp Pulse Resp B/P (MAP) Pulse Ox O2 Delivery O2 Flow Rate FiO2 02/03/17 08:00 98.0 72 20 137/86 (103) 95 02/03/17 04:00 98.4 62 22 127/69 (88) 95 02/03/17 00:00 98.6 65 19 120/61 (80) 98 02/02/17 20:30 Room Air 02/02/17 20:00 98.0 64 21 115/62 (79) 94 02/02/17 18:12 97 21 02/02/17 16:00 98.5 69 16 123/66 (85) 95 02/02/17 14:43 67 120/63 (82) 02/02/17 12:00 98.1 74 18 110/68 (82) 96 -: 01/30/17 0850 01/30/17 0850 Physical Exam General Appearance: No Acute Distress, Comfortable Eyes Eye Exam: Pupils Equal Throat Throat Exam: Oral Mucosa [place] & Moist Neck Neck Exam: Neck Supple Pulmonary Resp Exam: No Distress, Rhonchi, Decreased Bases, Diminished Breath Sounds Cardiology CV Exam: Regular, Normal Sinus Rhythm Gastrointestinal/Abdomen GI Exam: Soft, Non-Tender, Bowel Sounds Present Extremeties Extremities Exam: Moderate Edema Neurologic Neuro Exam: Alert, Awake Psychiatric Psych Exam: Appropriate Responses Assessment/Plan Assessment Summary: WILLIE/Acute Renal Failure, CHF, CKD Stage IV Problem List: (1) NSTEMI (non-ST elevated myocardial infarction) ICD Codes: I21.4 - Non-ST elevation (NSTEMI) myocardial infarction Status: Resolved (2) Diabetes mellitus ICD Codes: E11.9 - Diabetes mellitus Status: Chronic (3) Asthma ICD Codes: J45.909 - Asthma Status: Chronic (4) Shortness of breath ICD Codes: R06.02 - Shortness of breath Status: Acute (5) Leg edema ICD Codes: R60.0 - Leg edema Status: Acute (6) Hypertension ICD Codes: I10 - Hypertension Status: Chronic Plan Patient has been non oliguric, Creatinine is still elevated. Has proteinuria, serology negative. Added Phoslo as Po4 is elevated and calcitriol as Calcium is low. BP is better. Follow urine out put and watch for any renal recovery. Got the PermCath , has poor flow from Vascath. The Kidney Biopsy showing Diabetic and Hypertensive renal disease. Case management notes seen. AVF cannot be done as per vascular due to poor veins. HD to continue 3 times a week. Awaiting arrangements for out patient HD. HD now remove fluid as tolerated. 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
[2017-02-03 12:00] VITALS: BP 113/58; PULSE 78; RESP 18; TEMP 98.1; O2SAT 95
[2017-02-03] MEDS: GENTAMICIN SULFATE (DIALYSIS USE ONLY) 20 MG/2 ML VIAL IV PRN (12:21)
[2017-02-03] MEDS: HEPARIN SODIUM - IV 10,000 UNITS/10 ML VIAL PRN (12:22)
[2017-02-03] MEDS: EPOETIN ALFA 10,000 UNITS/ML VIAL IV PRN (12:22)
[2017-02-03] MEDS: ALBUMIN HUMAN 25% 25 GM/100 ML BAGP IV PRN (12:22)
[2017-02-03] MEDS: SODIUM CHLOR 0.9% 1000 ML INJ 1,000 ML IV PRN (12:23)
--- NOTE | 2017-02-03 13:02 | HHI.PR ---
Subjective Remarks Follow-up visit acute renal failure going on end-stage renal disease on hemodialysis, COPD, NSTEMI. at this time going to HD. no complaint. no good historian. Objective Vital Signs Date Time Temp Pulse Resp B/P (MAP) Pulse Ox O2 Delivery O2 Flow Rate FiO2 02/03/17 08:00 98.0 72 20 137/86 (103) 95 02/03/17 04:00 98.4 62 22 127/69 (88) 95 02/03/17 00:00 98.6 65 19 120/61 (80) 98 02/02/17 20:30 Room Air 02/02/17 20:00 98.0 64 21 115/62 (79) 94 02/02/17 18:12 97 21 02/02/17 16:00 98.5 69 16 123/66 (85) 95 02/02/17 14:43 67 120/63 (82) I/O 02/02/17 02/02/17 02/02/17 02/03/17 02/03/17 02/03/17 07:00 15:00 23:00 07:00 15:00 23:00 Intake Total 560 ml 600 ml 480 ml 201 ml Output Total 2000 ml Balance 560 ml 600 ml 480 ml -1799 ml Intake Oral 560 ml 600 ml 480 ml IV Total 201 ml Hemodialysis 2000 ml # Voids 2 2 1 # Bowel Movements 0 0 Result Diagram: 01/30/17 0850 01/30/17 0850 Imaging Last Impressions Venous Access Device Injection 01/30/17 0000 Signed Impressions: Service Date/Time: Monday, January 30, 2017 00:00 - CONCLUSION: Right IJ PermCath is in excellent position and appears to be functioning appropriately. Filiberto Rodarte MD Chest X-Ray 01/28/17 0000 Signed Impressions: Service Date/Time: Saturday, January 28, 2017 14:00 - CONCLUSION: Normal examination. Right-sided dual-lumen catheter in good position. Yoni Bay MD Carotid Artery Ultrasound 01/10/17 0000 Signed Impressions: Service Date/Time: Tuesday, January 10, 2017 12:25 - CONCLUSION: Negative examination for a hemodynamically significant carotid stenosis. Marek Burnett MD FACR Upper Extremity Ultrasound 01/05/17 0000 Signed Impressions: Service Date/Time: Thursday, January 05, 2017 18:56 - CONCLUSION: Normal examination. Ji Martinez MD Renal Biopsy CT 01/03/17 0000 Signed Impressions: Service Date/Time: Tuesday, January 03, 2017 13:28 - CONCLUSION: Uncomplicated CT guided biopsy. Ji Cedillo MD Central Venous Line 01/03/17 0000 Signed Impressions: Service Date/Time: Tuesday, January 03, 2017 00:00 - CONCLUSION: Uncomplicated catheter removal. Filiberto Rodarte MD Catheter Placement X-Ray 01/03/17 0000 Signed Impressions: Service Date/Time: Tuesday, January 03, 2017 14:27 - CONCLUSION: Uncomplicated PermaCath placement as above. Filiberto Rodarte MD Chest CT 12/08/16 0000 Signed Impressions: Service Date/Time: Thursday, December 08, 2016 14:02 - CONCLUSION: 1. Bilateral lower lobe consolidating airspace disease. 2. Small to moderate bilateral pleural effusions; larger on the left. 3. Cardiomegaly. 4. Endotracheal and nasogastric tubes in good position. Tutu Christianson MD Renal Ultrasound 12/07/16 0000 Signed Impressions: Service Date/Time: November 07:54 - CONCLUSION: Unremarkable and stable bilateral renal ultrasound. No evidence of hydronephrosis. Baron Medrano MD Procedures Hemodialysis Other Results Laboratory Tests Test 12/06/16 23:25 12/07/16 04:02 12/07/16 06:00 12/07/16 09:05 Total Creatine Kinase 607 U/L Creatine Kinase MB 9.8 NG/ML Creatine Kinase MB % 1.6 % Serum Osmolality 320 MOSM/KG Nasal Screen MRSA (PCR) MRSA NOT DETECTED Urine Color YELLOW Urine Turbidity CLEAR Urine pH 6.0 Urine Specific [place] 1.014 Urine Protein 300 mg/dL Urine Glucose (UA) 70 mg/dL Urine Ketones NEG mg/dL Urine Occult Blood LARGE Urine Nitrite NEG Urine Bilirubin NEG Urine Urobilinogen LESS THAN 2.0 MG/DL Urine Leukocyte Esterase NEG Urine RBC 91 /hpf Urine WBC 4 /hpf Urine Bacteria OCC /hpf Urine Hyaline Casts 2 /lpf Microscopic Urinalysis Comment CATH Urine Eosinophils NONE SEEN /HPF Test 12/07/16 17:30 12/08/16 03:30 12/08/16 04:20 12/09/16 08:45 Urine Random Creatinine 209.8 MG/DL Urine Random Sodium 16 MEQ/L Fibrinogen 747 mg/dL Lactic Acid Level 1.5 mmol/L Blood Urea Nitrogen 69 MG/DL Creatinine 8.09 MG/DL Random Glucose 253 MG/DL Total Protein 6.6 GM/DL Albumin 2.3 GM/DL Calcium Level 8.5 MG/DL Phosphorus Level 5.6 MG/DL Magnesium Level 1.8 MG/DL Alkaline Phosphatase 88 U/L Aspartate Amino Transf (AST/SGOT) 14 U/L Alanine Aminotransferase (ALT/SGPT) 18 U/L Total Bilirubin 0.3 MG/DL Direct Bilirubin 0.1 MG/DL Sodium Level 140 MEQ/L Potassium Level 4.3 MEQ/L Chloride Level 106 MEQ/L Carbon Dioxide Level 16.9 MEQ/L Indirect Bilirubin 0.2 MG/DL Ammonia LESS THAN 10 MCMOL/L Troponin I 2.86 NG/ML Lipase 114 U/L Thyroid Stimulating Hormone 3rd Gen 1.080 uIU/ML B-Type Natriuretic Peptide 320 PG/ML Blood Gas Puncture Site RT RADIAL Blood Gas Patient Temperature 98.6 Blood Gas HCO3 22 mmol/L Blood Gas Base Excess -1.9 mmol/L Blood Gas Oxygen Saturation 92 % Arterial Blood pH 7.41 Arterial Blood Partial Pressure CO2 35 mmHg Arterial Blood Partial Pressure O2 82 mmHg Arterial Blood Oxygen Content 11.3 Vol % Arterial Blood Carboxyhemoglobin 1.2 % Arterial Blood Methemoglobin 2.1 % Blood Gas Hemoglobin 8.6 G/DL Oxygen Delivery Device VENTILATOR Blood Gas Ventilator Setting CPAP+5/PS5 Blood Gas Inspired Oxygen 35 % Test 12/10/16 04:45 12/11/16 12:00 12/12/16 05:05 12/12/16 12:36 Anti-Nuclear Antibody Screen NEG Anti-Proteinase 3 (c-ANCA) LESS THAN 1.0 AI Anti-Myeloperoxidase Ab (p-ANCA) LESS THAN 1.0 AI Complement C3 114 MG/DL Complement C4 41 MG/DL Urine Total Volume 24 Hours 3850 ML Urine Total Protein 24 Hour 6191 MG/24HR Nucleated Red Blood Cells 1 /100 WBC Ovalocytes 1+ Protein Corrected Calcium 7.6 MG/DL Hepatitis A IgM Antibody NEGATIVE Hepatitis B Surface Antigen NEGATIVE Hepatitis B Core IgM Antibody NEGATIVE Hepatitis C Antibody NEGATIVE Test 12/13/16 04:30 12/14/16 05:35 12/17/16 05:28 12/18/16 01:48 [place] Cells 1+ Differential Total Cells Counted 100 Neutrophils % (Manual) 87 % Band Neutrophils % 1 % Lymphocytes % 4 % Monocytes % 4 % Neutrophils # (Manual) 8.4 TH/MM3 Metamyelocytes 1 % Myelocytes 3 % Red Cell Morphology Comment NORMAL Platelet Estimate NORMAL Platelet Morphology Comment NORMAL Test 12/23/16 07:33 01/04/17 14:07 01/26/17 07:40 01/30/17 08:50 Polychromasia 2.1 % Prothrombin Time 10.7 SEC Prothromb Time International Ratio 1.0 RATIO Activated Partial Thromboplast Time 21.7 SEC Neutrophils (%) (Auto) 44.2 % Lymphocytes (%) (Auto) 27.8 % Monocytes (%) (Auto) 17.1 % Eosinophils (%) (Auto) 9.9 % Basophils (%) (Auto) 1.0 % Neutrophils # (Auto) 3.0 TH/MM3 Lymphocytes # (Auto) 1.9 TH/MM3 Monocytes # (Auto) 1.2 TH/MM3 Eosinophils # (Auto) 0.7 TH/MM3 Basophils # (Auto) 0.1 TH/MM3 CBC Comment DIFF FINAL Differential Comment Blood Urea Nitrogen 54 MG/DL 49 MG/DL Creatinine 6.37 MG/DL 6.43 MG/DL Random Glucose 133 MG/DL 137 MG/DL Total Protein 8.1 GM/DL Albumin 3.6 GM/DL Calcium Level 10.0 MG/DL 9.8 MG/DL Phosphorus Level 3.0 MG/DL 3.1 MG/DL Magnesium Level 2.6 MG/DL 2.6 MG/DL Alkaline Phosphatase 91 U/L Aspartate Amino Transf (AST/SGOT) 12 U/L Alanine Aminotransferase (ALT/SGPT) 10 U/L Total Bilirubin 0.4 MG/DL Sodium Level 136 MEQ/L 139 MEQ/L Potassium Level 4.3 MEQ/L 3.8 MEQ/L Chloride Level 98 MEQ/L 100 MEQ/L Carbon Dioxide Level 30.6 MEQ/L 30.7 MEQ/L White Blood Count 4.3 TH/MM3 Red Blood Count 3.62 MIL/MM3 Hemoglobin 10.0 GM/DL Hematocrit 31.4 % Mean Corpuscular Volume 86.6 FL Mean Corpuscular Hemoglobin 27.5 PG Mean Corpuscular Hemoglobin Concent 31.7 % Red Cell Distribution Width 15.4 % Platelet Count 233 TH/MM3 Mean Platelet Volume 8.8 FL Anion Gap 8 MEQ/L Estimat Glomerular Filtration Rate 9 ML/MIN Hemoglobin A1c 6.7 % Objective Remarks GENERAL: This is a well-nourished, well-developed patient, in no apparent distress. SKIN: Warm and dry. HEENT: Normocephalic. Pupils equal round and reactive. Nose without bleeding. Airway patent. NECK: Trachea midline. No JVD. Supple. CARDIOVASCULAR: Regular rate and rhythm without murmurs, gallops, or rubs. Rt SC Permacath. RESPIRATORY: Diminished bases. No wheezes, rales, or rhonchi. GASTROINTESTINAL: Abdomen soft, nondistended. Bowel Sounds hypoactive. Tenderness to palpate lower quadrant. MUSCULOSKELETAL: Extremities without clubbing, cyanosis, facial edema. NEUROLOGICAL: Lethargic/ drowsy. Oriented to place, person. Moves all extremities weakly. Normal speech. Medications and IVs Current Medications Medications (Trade) Dose Ordered Sig/Abby Route Start Time Stop Time Status Last Admin (D50w (Vial) Inj) 25 ml UNSCH PRN IV PUSH 12/07/16 00:45 (Zofran Inj) 4 mg Q6H PRN IV 12/07/16 00:45 (NS Flush) DAILY IVF 12/07/16 15:30 02/03/17 08:22 (NS Flush) UNSCH PRN IVF 12/07/16 15:30 (Peridex 0.12% Liq) 15 ml BID@08,20 MT 12/07/16 20:00 02/03/17 08:00 (NS Flush) 2 ml UNSCH PRN IV FLUSH 12/07/16 15:30 12/12/16 11:32 (NS Flush) 2 ml BID IV FLUSH 12/07/16 21:00 02/03/17 08:22 (Tylenol) 650 mg Q6H PRN PO 12/07/16 15:30 01/30/17 12:24 (Tears Naturale Opth Soln) 1 drop TID EACH EYE 12/07/16 18:00 02/03/17 08:21 Miscellaneous Information 1 Q361D XX 12/07/16 15:30 (Chlorhexidine 2% Cloth) 3 pack Taper DAILY@04 TOP 12/08/16 04:00 12/04/17 03:59 01/01/17 03:31 (Chlorhexidine 2% Cloth) 3 pack UNSCH PRN TOP 12/07/16 15:30 (Milk Of Magnalvino Liq) 30 ml Q12H PRN PO 12/07/16 15:30 01/18/17 15:48 (Senokot) 17.2 mg Q12H PRN PO 12/07/16 15:30 01/08/17 22:36 (Aspirin Chew) 81 mg DAILY CHEW 12/08/16 12:00 02/03/17 08:15 (Trandate Inj) 20 mg Q2H PRN IV 12/10/16 00:15 12/14/16 08:05 (Morphine Inj) 2 mg Q3H PRN IV PUSH 12/10/16 09:15 02/03/17 07:03 (Coreg) 6.25 mg Q12HR PO 12/10/16 10:00 02/03/17 08:15 (Phoslo) 1,334 mg TID PO 12/10/16 13:00 02/03/17 08:16 (Rocaltrol) 0.5 mcg DAILY PO 12/10/16 12:45 Future Hold 01/23/17 12:52 (Symbicort 160-4.5 Inh) 1 puff Q12HR INH 12/11/16 12:00 02/03/17 08:21 (Spiriva Inh) 18 mcg DAILY INH 12/11/16 12:00 02/03/17 08:21 (Norvasc) 10 mg DAILY PO 12/11/16 15:15 02/03/17 08:15 (Apresoline Inj) 20 mg Q4H PRN IV PUSH 12/11/16 15:15 12/18/16 04:26 (Catapres) 0.3 mg Q8H PO 12/12/16 08:00 02/03/17 08:15 Sodium Chloride 1,000 ml @ 0 mls/hr Q0M PRN IV 12/12/16 12:11 02/03/17 12:23 (Heparin Inj) 8,000 units UNSCH PRN IVF 12/12/16 12:15 Future hold 01/06/17 10:58 Sodium Chloride 1,000 ml @ 200 mls/hr Q5H PRN IV 12/12/16 12:11 Sodium Chloride 1,000 ml @ 0 mls/hr Q0M PRN IV 12/12/16 12:11 12/12/16 17:04 (Mannitol Inj) 12.5 gm UNSCH PRN IV 12/12/16 12:15 (Albumin 25% Inj) 25 gm UNSCH PRN IV 12/12/16 12:15 02/03/17 12:22 (NS Flush) 5 ml UNSCH PRN IV FLUSH 12/12/16 12:15 12/26/16 10:34 (Heparin Inj) UNSCH PRN .XX 12/12/16 12:15 02/03/17 12:22 (Gentamicin (Dialysis) Inj) 20 mg UNSCH PRN IV 12/12/16 12:15 02/03/17 12:21 (Zofran Inj) 4 mg UNSCH PRN IV 12/12/16 12:15 (Tylenol) 650 mg UNSCH PRN PO 12/12/16 12:15 01/08/17 15:15 (Benadryl) 25 mg UNSCH PRN PO 12/12/16 12:15 02/01/17 02:28 (Nitrostat Sl) 0.4 mg UNSCH PRN SL 12/12/16 12:15 (Catapres) 0.1 mg UNSCH PRN PO 12/12/16 12:15 12/24/16 18:49 (Epogen Inj) 10,000 units UNSCH PRN IV 12/12/16 12:15 02/03/17 12:22 (Gelfoam 12 Mm/7 Mm Top) 1 foam UNSCH PRN TOP 12/12/16 12:15 (Apresoline) 50 mg Q8HR PO 12/26/16 14:00 02/03/17 05:29 (NS Flush) UNSCH PRN IVF 01/03/17 16:15 (Heparin Inj) UNSCH PRN IV FLUSH 01/03/17 16:15 (Heparin Inj) 5,000 units Q12HR SQ 01/07/17 09:00 Future hold 02/03/17 08:16 (Mucinex Er) 600 mg BID PO 01/12/17 10:30 02/03/17 08:15 (Cepacol Extra Ha (Sugar Free)) 1 lozenge Q2HR PRN BUCCAL 01/13/17 13:00 (Flomax) 0.4 mg HS PO 01/14/17 21:00 02/02/17 20:49 (NovoLOG INJ) 8 units TIDAC SQ 01/15/17 12:30 02/03/17 08:00 (Levemir Inj) 37 units HS SQ 01/16/17 21:00 02/02/17 20:50 (Fleets Enema (Adult)) 133 ml UNSCH PRN RECTAL 01/18/17 18:30 01/22/17 11:57 (NovoLIN R SUPPLEMENTAL SCALE) 1 ACHS SQ 01/19/17 12:00 02/03/17 08:00 (Narcan Inj) 0.4 mg UNSCH PRN IV PUSH 01/21/17 13:00 (Dulcolax Supp) 10 mg DAILY PRN RECTAL 01/21/17 13:00 01/30/17 17:49 (Lactulose Liq) 30 ml DAILY PRN PO 01/21/17 13:00 01/29/17 15:57 (Sara-Colace) 1 tab BID PO 01/21/17 21:00 02/20/17 20:59 02/03/17 08:15 (Miralax) 17 gm DAILY PO 01/24/17 09:00 02/03/17 08:16 (Duoneb Neb) 1 ampule Q4HR NEB PRN NEB 01/28/17 16:00 02/03/17 10:30 A/P Assessment and Plan Mr. Mehta is a 66-year-old male with medical history significant for hypertension and diabetes and CVA who presented to the hospital with a chief complaint of shortness of breath and chest pain. The patient was diagnosed with NSTEMI. Echo was performed which was concerning for thrombus, but study was limited and a repeat was suggested. He has history of chronic kidney disease but worsening of his creatinine was noted. He was seen and evaluated by nephrology who started the patient on hemodialysis. CKD stage IV with GFR 8 Acute renal failure progressing to ESRD - nephrology on board, started on hemodialysis TTHSa - PermaCath placed. Vascular surgery unable to find adequate vein for AVF. - Kidney biopsy on 01/03/2017 --> diffuse and nodular diabetic glomerulosclerosis, segmental and global glomerular sclerosis, interstitial fibrosis and tubular atrophy severe. - follow UO, nonoliguric - monitor BMP - Will need HD in outpatient. Awaiting HD set up in outpatient. S/P acute respiratory failure secondary to bilateral lower lobe pneumonias/ community acquired - resolved continue bronchodilator, Mucolytic, and incentive spirometry. Hypercalcemia - Hold calcitriol - Hypercalcemia resolving - continue to hold Calcitriol. COPD - Continue Symbicort and Spiriva - Continue albuterol neb. - Not on exacerbation. NSTEMI Hypertension - Echo performed December 07 showed distinct regional wall abnormalities with a possible clot in the apex. - echo with Definity contrast did not appear to show any clots in LV. - Cardiology was consulted, stable from a cardiac standpoint and recommended continued aggressive risk factor modification - ASA 81 mg daily. Coreg 6.25 mg BID. Norvasc 10 mg daily. Clonidine to 0.3 mg po TID and hydralazine 50 mg by mouth daily 8 hour Diabetes mellitus, with hyperglycemia - Continue Levemir 37 units QHS and sliding scale insulin. - pre-meal insulin 8 units TIDAC - Monitor Accu-Cheks and adjust regimen as indicated - HgA1C 6.7 - Improving. Better control BPH - continue Tamsulosin. Stable. Deconditioning: PT recommends SNF, generalized weakness likely due to prolonged hospitalization and multiple medical conditions as above. 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 Constipation, Abdominal pain - Pericolace BID - add Miralax daily, add bisacodyl - monitor for BM Heparin SQ for DVT prophylaxis. Discharge Planning 01/29/17 Patient discharge disposition unchanged. Per previous CM note: Patient case reported to [facility] to assist as pt is not [place] citizen. Discussed case with Nell she will determine if pt to benefit from transitional dialysis.CM will do f/u with CM director today. CM Spoke to Tamy at [facility] She stated pt's Medicaid is pending for [facility] Emergency Medicaid it is not affective for placement issues.Patient is NOT a [place] Citizen. Kamaljit Urias MD Feb 03, 2017 13:02
[2017-02-03 20:00] VITALS: BP 149/68; PULSE 83; RESP 20; TEMP 98.1; O2SAT 97
[2017-02-03] MEDS: TAMSULOSIN HCL 0.4 MG CAP PO SCH (20:50)
[2017-02-03] MEDS: INSULIN DETEMIR 100 UNITS/ML VIAL SQ SCH (20:51)
[2017-02-03 22:54] VITALS: O2SAT 94
[2017-02-04] VITALS (7 sets, daily range): BP systolic 115–131; BP diastolic 60–69; PULSE 71–81; RESP 20; TEMP 97.7–98.9; O2SAT 95–96
[2017-02-04] MEDS: CHLORHEXIDINE GLUCONATE 2 % 1 PACK (2 CLOTHS) TOP SCH (00:39)
[2017-02-04] MEDS: diphenhydrAMINE HCL 25 MG CAP PO PRN (01:20)
[2017-02-04] MEDS: MORPHINE SULFATE 4 MG/ML INJ IV PUSH PRN (01:20)
[2017-02-04] MEDS: hydrALAZINE HCL 50 MG TAB PO SCH ×3 (05:30→21:49)
[2017-02-04] MEDS: CHLORHEXIDINE 0.12% (ORAL KIT) 15 ML CUP MT SCH ×2 (08:00→20:00)
[2017-02-04] MEDS: INSULIN NovoLIN REGULAR SUPPLEMENTAL SCALE SQ SCH ×4 (09:00→21:00)
[2017-02-04] MEDS: ARTIFICIAL TEARS OPTH SOLN 15 ML BTL EACH EYE SCH ×3 (09:00→17:42)
[2017-02-04] MEDS: BUDESONIDE-FORMOTEROL 160/4.5 MCG INHALER INH SCH ×2 (09:00→21:00)
[2017-02-04] MEDS: DOCUSATE SODIUM 50 MG/SENNA 8.6 MG TAB PO SCH ×2 (09:31→21:49)
[2017-02-04] MEDS: CALCIUM ACETATE 667 MG CAP PO SCH ×3 (09:31→17:42)
[2017-02-04] MEDS: CARVEDILOL 6.25 MG TAB PO SCH ×2 (09:31→21:49)
[2017-02-04] MEDS: guaiFENesin E.R. 600 MG TAB PO SCH ×2 (09:32→21:49)
[2017-02-04] MEDS: cloNIDine HCL 0.3 MG TAB PO SCH ×3 (09:32→17:35)
[2017-02-04] MEDS: ASPIRIN 81 MG CHEW TAB CHEW SCH (09:32)
[2017-02-04] MEDS: POLYETHYLENE GLYCOL 17 GM PKG PO SCH (09:33)
[2017-02-04] MEDS: HEPARIN SODIUM - SQ 10,000 UNITS/ML VIAL SQ SCH ×2 (09:33→21:49)
[2017-02-04] MEDS: SODIUM CHLORIDE 0.9% FLUSH 10 ML FLUSH IV FLUSH SCH ×2 (09:35→21:51)
[2017-02-04] MEDS: TIOTROPIUM BROMIDE 18 MCG INH INH SCH (09:35)
[2017-02-04] MEDS: SODIUM CHLORIDE 0.9% FLUSH 10 ML FLUSH IVF SCH (09:35)
[2017-02-04] MEDS: INSULIN ASPART 1,000 UNITS/10 ML VIAL SQ SCH ×3 (09:39→17:38)
--- NOTE | 2017-02-04 12:00 | HHI.NPPN ---
Subjective History of Present Illness 66-year-old male with past medical history of hypertension, diabetes mellitus, history of cerebrovascular accident with left-sided weakness, hyperlipidemia, bronchial asthma, chronic kidney disease who was admitted because of shortness of breath and chest pain. I was called to see the patient because of elevated BUN and creatinine. The patient was diagnosed here with non-ST elevation [place]. The patient has history of chronic kidney disease. Additional Remarks Patient is alert, no complain, breathing is better, no abd. pain. Objective Data Data Vital Signs Date Time Temp Pulse Resp B/P (MAP) Pulse Ox O2 Delivery O2 Flow Rate FiO2 02/04/17 08:00 98.7 77 20 126/62 (83) 96 02/04/17 08:00 Room Air 02/04/17 04:00 98.0 76 20 131/69 (89) 96 02/04/17 00:00 98.9 76 20 122/66 (84) 96 02/03/17 22:54 94 21 02/03/17 20:00 98.1 83 20 149/68 (95) 97 02/03/17 20:00 Room Air 02/03/17 16:00 95 Room Air 02/03/17 12:00 98.1 78 18 113/58 (76) 95 Physical Exam General Appearance: No Acute Distress, Comfortable Eyes Eye Exam: Pupils Equal Throat Throat Exam: Oral Mucosa [place] & Moist Neck Neck Exam: Neck Supple Pulmonary Resp Exam: No Distress, Rhonchi, Decreased Bases, Diminished Breath Sounds Cardiology CV Exam: Regular, Normal Sinus Rhythm Gastrointestinal/Abdomen GI Exam: Soft, Non-Tender, Bowel Sounds Present Extremeties Extremities Exam: Moderate Edema Neurologic Neuro Exam: Alert, Awake Psychiatric Psych Exam: Appropriate Responses Assessment/Plan Assessment Summary: WILLIE/Acute Renal Failure, CHF, CKD Stage IV Problem List: (1) NSTEMI (non-ST elevated myocardial infarction) ICD Codes: I21.4 - Non-ST elevation (NSTEMI) myocardial infarction Status: Resolved (2) Diabetes mellitus ICD Codes: E11.9 - Diabetes mellitus Status: Chronic (3) Asthma ICD Codes: J45.909 - Asthma Status: Chronic (4) Shortness of breath ICD Codes: R06.02 - Shortness of breath Status: Acute (5) Leg edema ICD Codes: R60.0 - Leg edema Status: Acute (6) Hypertension ICD Codes: I10 - Hypertension Status: Chronic Plan Patient has been non oliguric, Creatinine is still elevated. Has proteinuria, serology negative. Added Phoslo as Po4 is elevated and calcitriol as Calcium is low. BP is better. Follow urine out put and watch for any renal recovery. Got the PermCath , has poor flow from Vascath. The Kidney Biopsy showing Diabetic and Hypertensive renal disease. Case management notes seen. AVF cannot be done as per vascular due to poor veins. HD to continue 3 times a week. Awaiting arrangements for out patient HD. Continue HD as schedule. 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
--- NOTE | 2017-02-04 13:19 | HHI.PR ---
Subjective Remarks Follow-up visit acute renal failure going on end-stage renal disease on hemodialysis, COPD, NSTEMI. Seen in his bedroom and discussed with nurse Miss Herbert no new issues, continue giving him Insulin as per recommendations, his blood sugars with mild uncontrolled blood sugar, adjusted. Objective Vital Signs Date Time Temp Pulse Resp B/P (MAP) Pulse Ox O2 Delivery O2 Flow Rate FiO2 02/04/17 08:00 98.7 77 20 126/62 (83) 96 02/04/17 08:00 Room Air 02/04/17 04:00 98.0 76 20 131/69 (89) 96 02/04/17 00:00 98.9 76 20 122/66 (84) 96 02/03/17 22:54 94 21 02/03/17 20:00 98.1 83 20 149/68 (95) 97 02/03/17 20:00 Room Air 02/03/17 16:00 95 Room Air I/O 02/03/17 02/03/17 02/03/17 02/04/17 02/04/17 02/04/17 07:00 15:00 23:00 07:00 15:00 23:00 Intake Total 480 ml 201 ml 340 ml Output Total 2000 ml Balance 480 ml -1799 ml 340 ml Intake Oral 480 ml 340 ml IV Total 201 ml Hemodialysis 2000 ml # Voids 1 2 # Bowel Movements 0 Imaging Last Impressions Venous Access Device Injection 01/30/17 0000 Signed Impressions: Service Date/Time: Monday, January 30, 2017 00:00 - CONCLUSION: Right IJ PermCath is in excellent position and appears to be functioning appropriately. Filiberto Rodarte MD Chest X-Ray 01/28/17 0000 Signed Impressions: Service Date/Time: Saturday, January 28, 2017 14:00 - CONCLUSION: Normal examination. Right-sided dual-lumen catheter in good position. Yoni Bay MD Carotid Artery Ultrasound 01/10/17 0000 Signed Impressions: Service Date/Time: Tuesday, January 10, 2017 12:25 - CONCLUSION: Negative examination for a hemodynamically significant carotid stenosis. Marek Burnett MD FACR Upper Extremity Ultrasound 01/05/17 0000 Signed Impressions: Service Date/Time: Thursday, January 05, 2017 18:56 - CONCLUSION: Normal examination. Ji Martinez MD Renal Biopsy CT 01/03/17 0000 Signed Impressions: Service Date/Time: Tuesday, January 03, 2017 13:28 - CONCLUSION: Uncomplicated CT guided biopsy. Ji Cedillo MD Central Venous Line 01/03/17 0000 Signed Impressions: Service Date/Time: Tuesday, January 03, 2017 00:00 - CONCLUSION: Uncomplicated catheter removal. Filiberto Rodarte MD Catheter Placement X-Ray 01/03/17 0000 Signed Impressions: Service Date/Time: Tuesday, January 03, 2017 14:27 - CONCLUSION: Uncomplicated PermaCath placement as above. Filiberto Rodarte MD Chest CT 12/08/16 0000 Signed Impressions: Service Date/Time: Thursday, December 08, 2016 14:02 - CONCLUSION: 1. Bilateral lower lobe consolidating airspace disease. 2. Small to moderate bilateral pleural effusions; larger on the left. 3. Cardiomegaly. 4. Endotracheal and nasogastric tubes in good position. Tutu Christianson MD Renal Ultrasound 12/07/16 0000 Signed Impressions: Service Date/Time: November 07:54 - CONCLUSION: Unremarkable and stable bilateral renal ultrasound. No evidence of hydronephrosis. Baron Medrano MD Procedures Hemodialysis Other Results Laboratory Tests Test 12/06/16 23:25 12/07/16 04:02 12/07/16 06:00 12/07/16 09:05 Total Creatine Kinase 607 U/L Creatine Kinase MB 9.8 NG/ML Creatine Kinase MB % 1.6 % Serum Osmolality 320 MOSM/KG Nasal Screen MRSA (PCR) MRSA NOT DETECTED Urine Color YELLOW Urine Turbidity CLEAR Urine pH 6.0 Urine Specific [place] 1.014 Urine Protein 300 mg/dL Urine Glucose (UA) 70 mg/dL Urine Ketones NEG mg/dL Urine Occult Blood LARGE Urine Nitrite NEG Urine Bilirubin NEG Urine Urobilinogen LESS THAN 2.0 MG/DL Urine Leukocyte Esterase NEG Urine RBC 91 /hpf Urine WBC 4 /hpf Urine Bacteria OCC /hpf Urine Hyaline Casts 2 /lpf Microscopic Urinalysis Comment CATH Urine Eosinophils NONE SEEN /HPF Test 12/07/16 17:30 12/08/16 03:30 12/08/16 04:20 12/09/16 08:45 Urine Random Creatinine 209.8 MG/DL Urine Random Sodium 16 MEQ/L Fibrinogen 747 mg/dL Lactic Acid Level 1.5 mmol/L Blood Urea Nitrogen 69 MG/DL Creatinine 8.09 MG/DL Random Glucose 253 MG/DL Total Protein 6.6 GM/DL Albumin 2.3 GM/DL Calcium Level 8.5 MG/DL Phosphorus Level 5.6 MG/DL Magnesium Level 1.8 MG/DL Alkaline Phosphatase 88 U/L Aspartate Amino Transf (AST/SGOT) 14 U/L Alanine Aminotransferase (ALT/SGPT) 18 U/L Total Bilirubin 0.3 MG/DL Direct Bilirubin 0.1 MG/DL Sodium Level 140 MEQ/L Potassium Level 4.3 MEQ/L Chloride Level 106 MEQ/L Carbon Dioxide Level 16.9 MEQ/L Indirect Bilirubin 0.2 MG/DL Ammonia LESS THAN 10 MCMOL/L Troponin I 2.86 NG/ML Lipase 114 U/L Thyroid Stimulating Hormone 3rd Gen 1.080 uIU/ML B-Type Natriuretic Peptide 320 PG/ML Blood Gas Puncture Site RT RADIAL Blood Gas Patient Temperature 98.6 Blood Gas HCO3 22 mmol/L Blood Gas Base Excess -1.9 mmol/L Blood Gas Oxygen Saturation 92 % Arterial Blood pH 7.41 Arterial Blood Partial Pressure CO2 35 mmHg Arterial Blood Partial Pressure O2 82 mmHg Arterial Blood Oxygen Content 11.3 Vol % Arterial Blood Carboxyhemoglobin 1.2 % Arterial Blood Methemoglobin 2.1 % Blood Gas Hemoglobin 8.6 G/DL Oxygen Delivery Device VENTILATOR Blood Gas Ventilator Setting CPAP+5/PS5 Blood Gas Inspired Oxygen 35 % Test 12/10/16 04:45 12/11/16 12:00 12/12/16 05:05 12/12/16 12:36 Anti-Nuclear Antibody Screen NEG Anti-Proteinase 3 (c-ANCA) LESS THAN 1.0 AI Anti-Myeloperoxidase Ab (p-ANCA) LESS THAN 1.0 AI Complement C3 114 MG/DL Complement C4 41 MG/DL Urine Total Volume 24 Hours 3850 ML Urine Total Protein 24 Hour 6191 MG/24HR Nucleated Red Blood Cells 1 /100 WBC Ovalocytes 1+ Protein Corrected Calcium 7.6 MG/DL Hepatitis A IgM Antibody NEGATIVE Hepatitis B Surface Antigen NEGATIVE Hepatitis B Core IgM Antibody NEGATIVE Hepatitis C Antibody NEGATIVE Test 12/13/16 04:30 12/14/16 05:35 12/17/16 05:28 12/18/16 01:48 Lisy Cells 1+ Differential Total Cells Counted 100 Neutrophils % (Manual) 87 % Band Neutrophils % 1 % Lymphocytes % 4 % Monocytes % 4 % Neutrophils # (Manual) 8.4 TH/MM3 Metamyelocytes 1 % Myelocytes 3 % Red Cell Morphology Comment NORMAL Platelet Estimate NORMAL Platelet Morphology Comment NORMAL Test 12/23/16 07:33 01/04/17 14:07 01/26/17 07:40 01/30/17 08:50 Polychromasia 2.1 % Prothrombin Time 10.7 SEC Prothromb Time International Ratio 1.0 RATIO Activated Partial Thromboplast Time 21.7 SEC Neutrophils (%) (Auto) 44.2 % Lymphocytes (%) (Auto) 27.8 % Monocytes (%) (Auto) 17.1 % Eosinophils (%) (Auto) 9.9 % Basophils (%) (Auto) 1.0 % Neutrophils # (Auto) 3.0 TH/MM3 Lymphocytes # (Auto) 1.9 TH/MM3 Monocytes # (Auto) 1.2 TH/MM3 Eosinophils # (Auto) 0.7 TH/MM3 Basophils # (Auto) 0.1 TH/MM3 CBC Comment DIFF FINAL Differential Comment Blood Urea Nitrogen 54 MG/DL 49 MG/DL Creatinine 6.37 MG/DL 6.43 MG/DL Random Glucose 133 MG/DL 137 MG/DL Total Protein 8.1 GM/DL Albumin 3.6 GM/DL Calcium Level 10.0 MG/DL 9.8 MG/DL Phosphorus Level 3.0 MG/DL 3.1 MG/DL Magnesium Level 2.6 MG/DL 2.6 MG/DL Alkaline Phosphatase 91 U/L Aspartate Amino Transf (AST/SGOT) 12 U/L Alanine Aminotransferase (ALT/SGPT) 10 U/L Total Bilirubin 0.4 MG/DL Sodium Level 136 MEQ/L 139 MEQ/L Potassium Level 4.3 MEQ/L 3.8 MEQ/L Chloride Level 98 MEQ/L 100 MEQ/L Carbon Dioxide Level 30.6 MEQ/L 30.7 MEQ/L White Blood Count 4.3 TH/MM3 Red Blood Count 3.62 MIL/MM3 Hemoglobin 10.0 GM/DL Hematocrit 31.4 % Mean Corpuscular Volume 86.6 FL Mean Corpuscular Hemoglobin 27.5 PG Mean Corpuscular Hemoglobin Concent 31.7 % Red Cell Distribution Width 15.4 % Platelet Count 233 TH/MM3 Mean Platelet Volume 8.8 FL Anion Gap 8 MEQ/L Estimat Glomerular Filtration Rate 9 ML/MIN Hemoglobin A1c 6.7 % Objective Remarks GENERAL: This is a well-nourished, well-developed patient, in no apparent distress. SKIN: Warm and dry. HEENT: Normocephalic. Pupils equal round and reactive. Nose without bleeding. Airway patent. NECK: Trachea midline. No JVD. Supple. CARDIOVASCULAR: Regular rate and rhythm without murmurs, gallops, or rubs. Rt SC Permacath. RESPIRATORY: Diminished bases. No wheezes, rales, or rhonchi. GASTROINTESTINAL: Abdomen soft, nondistended. Bowel Sounds hypoactive. Tenderness to palpate lower quadrant. MUSCULOSKELETAL: Extremities without clubbing, cyanosis, facial edema. NEUROLOGICAL: Lethargic/ drowsy. Oriented to place, person. Moves all extremities weakly. Normal speech. Medications and IVs Current Medications Medications (Trade) Dose Ordered Sig/Abby Route Start Time Stop Time Status Last Admin (D50w (Vial) Inj) 25 ml UNSCH PRN IV PUSH 12/07/16 00:45 (Zofran Inj) 4 mg Q6H PRN IV 12/07/16 00:45 (NS Flush) DAILY IVF 12/07/16 15:30 02/04/17 09:35 (NS Flush) UNSCH PRN IVF 12/07/16 15:30 (Peridex 0.12% Liq) 15 ml BID@08,20 MT 12/07/16 20:00 02/03/17 08:00 (NS Flush) 2 ml UNSCH PRN IV FLUSH 12/07/16 15:30 12/12/16 11:32 (NS Flush) 2 ml BID IV FLUSH 12/07/16 21:00 02/04/17 09:35 (Tylenol) 650 mg Q6H PRN PO 12/07/16 15:30 01/30/17 12:24 (Tears Naturale Opth Soln) 1 drop TID EACH EYE 12/07/16 18:00 02/04/17 09:00 Miscellaneous Information 1 Q361D XX 12/07/16 15:30 (Chlorhexidine 2% Cloth) 3 pack Taper DAILY@04 TOP 12/08/16 04:00 12/04/17 03:59 01/01/17 03:31 (Chlorhexidine 2% Cloth) 3 pack UNSCH PRN TOP 12/07/16 15:30 (Milk Of Magnesia Liq) 30 ml Q12H PRN PO 12/07/16 15:30 01/18/17 15:48 (Senokot) 17.2 mg Q12H PRN PO 12/07/16 15:30 01/08/17 22:36 (Aspirin Chew) 81 mg DAILY CHEW 12/08/16 12:00 02/04/17 09:32 (Trandate Inj) 20 mg Q2H PRN IV 12/10/16 00:15 12/14/16 08:05 (Morphine Inj) 2 mg Q3H PRN IV PUSH 12/10/16 09:15 02/04/17 01:20 (Coreg) 6.25 mg Q12HR PO 12/10/16 10:00 02/04/17 09:31 (Phoslo) 1,334 mg TID PO 12/10/16 13:00 02/04/17 12:28 (Rocaltrol) 0.5 mcg DAILY PO 12/10/16 12:45 Future Hold 01/23/17 12:52 (Symbicort 160-4.5 Inh) 1 puff Q12HR INH 12/11/16 12:00 02/04/17 09:00 (Spiriva Inh) 18 mcg DAILY INH 12/11/16 12:00 02/04/17 09:35 (Norvasc) 10 mg DAILY PO 12/11/16 15:15 02/04/17 09:32 (Apresoline Inj) 20 mg Q4H PRN IV PUSH 12/11/16 15:15 12/18/16 04:26 (Catapres) 0.3 mg Q8H PO 12/12/16 08:00 02/04/17 09:32 Sodium Chloride 1,000 ml @ 0 mls/hr Q0M PRN IV 12/12/16 12:11 02/03/17 12:23 (Heparin Inj) 8,000 units UNSCH PRN IVF 12/12/16 12:15 Future hold 01/06/17 10:58 Sodium Chloride 1,000 ml @ 200 mls/hr Q5H PRN IV 12/12/16 12:11 Sodium Chloride 1,000 ml @ 0 mls/hr Q0M PRN IV 12/12/16 12:11 12/12/16 17:04 (Mannitol Inj) 12.5 gm UNSCH PRN IV 12/12/16 12:15 (Albumin 25% Inj) 25 gm UNSCH PRN IV 12/12/16 12:15 02/03/17 12:22 (NS Flush) 5 ml UNSCH PRN IV FLUSH 12/12/16 12:15 12/26/16 10:34 (Heparin Inj) UNSCH PRN .XX 12/12/16 12:15 02/03/17 12:22 (Gentamicin (Dialysis) Inj) 20 mg UNSCH PRN IV 12/12/16 12:15 02/03/17 12:21 (Zofran Inj) 4 mg UNSCH PRN IV 12/12/16 12:15 (Tylenol) 650 mg UNSCH PRN PO 12/12/16 12:15 01/08/17 15:15 (Benadryl) 25 mg UNSCH PRN PO 12/12/16 12:15 02/04/17 01:20 (Nitrostat Sl) 0.4 mg UNSCH PRN SL 12/12/16 12:15 (Catapres) 0.1 mg UNSCH PRN PO 12/12/16 12:15 12/24/16 18:49 (Epogen Inj) 10,000 units UNSCH PRN IV 12/12/16 12:15 02/03/17 12:22 (Gelfoam 12 Mm/7 Mm Top) 1 foam UNSCH PRN TOP 12/12/16 12:15 (Apresoline) 50 mg Q8HR PO 12/26/16 14:00 02/03/17 20:50 (NS Flush) UNSCH PRN IVF 01/03/17 16:15 (Heparin Inj) UNSCH PRN IV FLUSH 01/03/17 16:15 (Heparin Inj) 5,000 units Q12HR SQ 01/07/17 09:00 Future hold 02/04/17 09:33 (Mucinex Er) 600 mg BID PO 01/12/17 10:30 02/04/17 09:32 (Cepacol Extra Ha (Sugar Free)) 1 lozenge Q2HR PRN BUCCAL 01/13/17 13:00 (Flomax) 0.4 mg HS PO 01/14/17 21:00 02/03/17 20:50 (NovoLOG INJ) 8 units TIDAC SQ 01/15/17 12:30 02/04/17 12:29 (Levemir Inj) 37 units HS SQ 01/16/17 21:00 02/03/17 20:51 (Fleets Enema (Adult)) 133 ml UNSCH PRN RECTAL 01/18/17 18:30 01/22/17 11:57 (NovoLIN R SUPPLEMENTAL SCALE) 1 ACHS SQ 01/19/17 12:00 02/03/17 20:51 (Narcan Inj) 0.4 mg UNSCH PRN IV PUSH 01/21/17 13:00 (Dulcolax Supp) 10 mg DAILY PRN RECTAL 01/21/17 13:00 01/30/17 17:49 (Lactulose Liq) 30 ml DAILY PRN PO 01/21/17 13:00 01/29/17 15:57 (Sara-Colace) 1 tab BID PO 01/21/17 21:00 02/20/17 20:59 02/04/17 09:31 (Miralax) 17 gm DAILY PO 01/24/17 09:00 02/04/17 09:33 (Duoneb Neb) 1 ampule Q4HR NEB PRN NEB 01/28/17 16:00 02/03/17 22:53 A/P Assessment and Plan Mr. Mehta is a 66-year-old male with medical history significant for hypertension and diabetes and CVA who presented to the hospital with a chief complaint of shortness of breath and chest pain. The patient was diagnosed with NSTEMI. Echo was performed which was concerning for thrombus, but study was limited and a repeat was suggested. He has history of chronic kidney disease but worsening of his creatinine was noted. He was seen and evaluated by nephrology who started the patient on hemodialysis. CKD stage IV with GFR 8 Acute renal failure progressing to ESRD - nephrology on board, started on hemodialysis TTHSa - PermaCath placed. Vascular surgery unable to find adequate vein for AVF. - Kidney biopsy on 01/03/2017 --> diffuse and nodular diabetic glomerulosclerosis, segmental and global glomerular sclerosis, interstitial fibrosis and tubular atrophy severe. - follow UO, nonoliguric - monitor BMP - Will need HD in outpatient. Awaiting HD set up in outpatient. S/P acute respiratory failure secondary to bilateral lower lobe pneumonias/ community acquired - resolved continue bronchodilator, Mucolytic, and incentive spirometry. Hypercalcemia - Hold calcitriol - Hypercalcemia resolving - continue to hold Calcitriol. COPD - Continue Symbicort and Spiriva - Continue albuterol neb. - Not on exacerbation. NSTEMI Hypertension - Echo performed December 07 showed distinct regional wall abnormalities with a possible clot in the apex. - echo with Definity contrast did not appear to show any clots in LV. - Cardiology was consulted, stable from a cardiac standpoint and recommended continued aggressive risk factor modification - ASA 81 mg daily. Coreg 6.25 mg BID. Norvasc 10 mg daily. Clonidine to 0.3 mg po TID and hydralazine 50 mg by mouth daily 8 hour Diabetes mellitus, with hyperglycemia - Continue Levemir increased to 39 units QHS and sliding scale, also pre meal to 9 units. - HgA1C 6.7 - Improving. Better control BPH - continue Tamsulosin. Stable. Deconditioning: PT recommends SNF, generalized weakness likely due to prolonged hospitalization and multiple medical conditions as above. 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 Constipation, Abdominal pain - Pericolace BID - add Miralax daily, add bisacodyl - monitor for BM Heparin SQ for DVT prophylaxis. Discharge Planning 01/29/17 Patient discharge disposition unchanged. Per previous CM note: Patient case reported to [facility] to assist as pt is not [place] citizen. Discussed case with eNll she will determine if pt to benefit from transitional dialysis.CM will do f/u with CM director today. CM Spoke to Tamy at [employer] She stated pt's Medicaid is pending for [facility] Emergency Medicaid it is not affective for placement issues.Patient is NOT a [place] Citizen. Kamaljit Urias MD Feb 04, 2017 13:19
[2017-02-04] MEDS: TAMSULOSIN HCL 0.4 MG CAP PO SCH (21:49)
[2017-02-04] MEDS: INSULIN DETEMIR 100 UNITS/ML VIAL SQ SCH (21:51)
[2017-02-05] MEDS: cloNIDine HCL 0.3 MG TAB PO SCH ×4 (01:02→23:58)
[2017-02-05] MEDS: MORPHINE SULFATE 4 MG/ML INJ IV PUSH PRN (01:05)
[2017-02-05] MEDS: CHLORHEXIDINE GLUCONATE 2 % 1 PACK (2 CLOTHS) TOP SCH (04:00)
[2017-02-05 04:04] VITALS: BP 149/66; PULSE 71; RESP 20; TEMP 98.7; O2SAT 95
[2017-02-05] MEDS: hydrALAZINE HCL 50 MG TAB PO SCH ×3 (05:15→22:12)
[2017-02-05 08:00] VITALS: BP 130/69; PULSE 77; RESP 20; TEMP 98.4; O2SAT 96
[2017-02-05] MEDS: CHLORHEXIDINE 0.12% (ORAL KIT) 15 ML CUP MT SCH ×2 (08:00→20:00)
--- NOTE | 2017-02-05 08:27 | HHI.PR ---
Subjective Remarks Follow-up visit acute renal failure going on end-stage renal disease on hemodialysis, COPD, NSTEMI. Stable in his bedroom no new issues, discussed with nurse Miss Vilchis, removed IV pain medicine and switch to by mouth continue awaiting for placement Objective Vital Signs Date Time Temp Pulse Resp B/P (MAP) Pulse Ox O2 Delivery O2 Flow Rate FiO2 02/05/17 04:04 98.7 71 20 149/66 (93) 95 02/05/17 04:00 Room Air 02/05/17 00:00 Nasal Cannula 3.00 02/04/17 23:57 97.7 71 20 127/60 (82) 95 02/04/17 20:40 Room Air 02/04/17 20:04 97.8 72 20 131/69 (89) 96 02/04/17 20:00 Room Air 02/04/17 16:00 98.0 72 20 115/61 (79) 95 02/04/17 12:00 98.3 81 20 116/65 (82) 96 I/O 02/04/17 02/04/17 02/04/17 02/05/17 02/05/17 02/05/17 07:00 15:00 23:00 07:00 15:00 23:00 Intake Total 340 ml 480 ml 240 ml Balance 340 ml 480 ml 240 ml Intake Oral 340 ml 480 ml 240 ml # Voids 2 1 0 # Bowel Movements 0 Imaging Last Impressions Venous Access Device Injection 01/30/17 0000 Signed Impressions: Service Date/Time: Monday, January 30, 2017 00:00 - CONCLUSION: Right IJ PermCath is in excellent position and appears to be functioning appropriately. Filiberto Rodarte MD Chest X-Ray 01/28/17 0000 Signed Impressions: Service Date/Time: Saturday, January 28, 2017 14:00 - CONCLUSION: Normal examination. Right-sided dual-lumen catheter in good position. Yoni Bay MD Carotid Artery Ultrasound 01/10/17 0000 Signed Impressions: Service Date/Time: Tuesday, January 10, 2017 12:25 - CONCLUSION: Negative examination for a hemodynamically significant carotid stenosis. Marek Burnett MD FACR Upper Extremity Ultrasound 01/05/17 0000 Signed Impressions: Service Date/Time: Thursday, January 05, 2017 18:56 - CONCLUSION: Normal examination. Ji Martinez MD Renal Biopsy CT 01/03/17 0000 Signed Impressions: Service Date/Time: Tuesday, January 03, 2017 13:28 - CONCLUSION: Uncomplicated CT guided biopsy. Ji Cedillo MD Central Venous Line 01/03/17 0000 Signed Impressions: Service Date/Time: Tuesday, January 03, 2017 00:00 - CONCLUSION: Uncomplicated catheter removal. Filiberto Rodarte MD Catheter Placement X-Ray 01/03/17 0000 Signed Impressions: Service Date/Time: Tuesday, January 03, 2017 14:27 - CONCLUSION: Uncomplicated PermaCath placement as above. Filiberto Rodarte MD Chest CT 12/08/16 0000 Signed Impressions: Service Date/Time: Thursday, December 08, 2016 14:02 - CONCLUSION: 1. Bilateral lower lobe consolidating airspace disease. 2. Small to moderate bilateral pleural effusions; larger on the left. 3. Cardiomegaly. 4. Endotracheal and nasogastric tubes in good position. Tutu Christianson MD Renal Ultrasound 12/07/16 0000 Signed Impressions: Service Date/Time: November 07:54 - CONCLUSION: Unremarkable and stable bilateral renal ultrasound. No evidence of hydronephrosis. Baron Medrano MD Procedures Hemodialysis Other Results Laboratory Tests Test 12/06/16 23:25 12/07/16 04:02 12/07/16 06:00 12/07/16 09:05 Total Creatine Kinase 607 U/L Creatine Kinase MB 9.8 NG/ML Creatine Kinase MB % 1.6 % Serum Osmolality 320 MOSM/KG Nasal Screen MRSA (PCR) MRSA NOT DETECTED Urine Color YELLOW Urine Turbidity CLEAR Urine pH 6.0 Urine Specific [place] 1.014 Urine Protein 300 mg/dL Urine Glucose (UA) 70 mg/dL Urine Ketones NEG mg/dL Urine Occult Blood LARGE Urine Nitrite NEG Urine Bilirubin NEG Urine Urobilinogen LESS THAN 2.0 MG/DL Urine Leukocyte Esterase NEG Urine RBC 91 /hpf Urine WBC 4 /hpf Urine Bacteria OCC /hpf Urine Hyaline Casts 2 /lpf Microscopic Urinalysis Comment CATH Urine Eosinophils NONE SEEN /HPF Test 12/07/16 17:30 12/08/16 03:30 12/08/16 04:20 12/09/16 08:45 Urine Random Creatinine 209.8 MG/DL Urine Random Sodium 16 MEQ/L Fibrinogen 747 mg/dL Lactic Acid Level 1.5 mmol/L Blood Urea Nitrogen 69 MG/DL Creatinine 8.09 MG/DL Random Glucose 253 MG/DL Total Protein 6.6 GM/DL Albumin 2.3 GM/DL Calcium Level 8.5 MG/DL Phosphorus Level 5.6 MG/DL Magnesium Level 1.8 MG/DL Alkaline Phosphatase 88 U/L Aspartate Amino Transf (AST/SGOT) 14 U/L Alanine Aminotransferase (ALT/SGPT) 18 U/L Total Bilirubin 0.3 MG/DL Direct Bilirubin 0.1 MG/DL Sodium Level 140 MEQ/L Potassium Level 4.3 MEQ/L Chloride Level 106 MEQ/L Carbon Dioxide Level 16.9 MEQ/L Indirect Bilirubin 0.2 MG/DL Ammonia LESS THAN 10 MCMOL/L Troponin I 2.86 NG/ML Lipase 114 U/L Thyroid Stimulating Hormone 3rd Gen 1.080 uIU/ML B-Type Natriuretic Peptide 320 PG/ML Blood Gas Puncture Site RT RADIAL Blood Gas Patient Temperature 98.6 Blood Gas HCO3 22 mmol/L Blood Gas Base Excess -1.9 mmol/L Blood Gas Oxygen Saturation 92 % Arterial Blood pH 7.41 Arterial Blood Partial Pressure CO2 35 mmHg Arterial Blood Partial Pressure O2 82 mmHg Arterial Blood Oxygen Content 11.3 Vol % Arterial Blood Carboxyhemoglobin 1.2 % Arterial Blood Methemoglobin 2.1 % Blood Gas Hemoglobin 8.6 G/DL Oxygen Delivery Device VENTILATOR Blood Gas Ventilator Setting CPAP+5/PS5 Blood Gas Inspired Oxygen 35 % Test 12/10/16 04:45 12/11/16 12:00 12/12/16 05:05 12/12/16 12:36 Anti-Nuclear Antibody Screen NEG Anti-Proteinase 3 (c-ANCA) LESS THAN 1.0 AI Anti-Myeloperoxidase Ab (p-ANCA) LESS THAN 1.0 AI Complement C3 114 MG/DL Complement C4 41 MG/DL Urine Total Volume 24 Hours 3850 ML Urine Total Protein 24 Hour 6191 MG/24HR Nucleated Red Blood Cells 1 /100 WBC Ovalocytes 1+ Protein Corrected Calcium 7.6 MG/DL Hepatitis A IgM Antibody NEGATIVE Hepatitis B Surface Antigen NEGATIVE Hepatitis B Core IgM Antibody NEGATIVE Hepatitis C Antibody NEGATIVE Test 12/13/16 04:30 12/14/16 05:35 12/17/16 05:28 12/18/16 01:48 Lisy Cells 1+ Differential Total Cells Counted 100 Neutrophils % (Manual) 87 % Band Neutrophils % 1 % Lymphocytes % 4 % Monocytes % 4 % Neutrophils # (Manual) 8.4 TH/MM3 Metamyelocytes 1 % Myelocytes 3 % Red Cell Morphology Comment NORMAL Platelet Estimate NORMAL Platelet Morphology Comment NORMAL Test 12/23/16 07:33 01/04/17 14:07 01/26/17 07:40 01/30/17 08:50 Polychromasia 2.1 % Prothrombin Time 10.7 SEC Prothromb Time International Ratio 1.0 RATIO Activated Partial Thromboplast Time 21.7 SEC Neutrophils (%) (Auto) 44.2 % Lymphocytes (%) (Auto) 27.8 % Monocytes (%) (Auto) 17.1 % Eosinophils (%) (Auto) 9.9 % Basophils (%) (Auto) 1.0 % Neutrophils # (Auto) 3.0 TH/MM3 Lymphocytes # (Auto) 1.9 TH/MM3 Monocytes # (Auto) 1.2 TH/MM3 Eosinophils # (Auto) 0.7 TH/MM3 Basophils # (Auto) 0.1 TH/MM3 CBC Comment DIFF FINAL Differential Comment Blood Urea Nitrogen 54 MG/DL 49 MG/DL Creatinine 6.37 MG/DL 6.43 MG/DL Random Glucose 133 MG/DL 137 MG/DL Total Protein 8.1 GM/DL Albumin 3.6 GM/DL Calcium Level 10.0 MG/DL 9.8 MG/DL Phosphorus Level 3.0 MG/DL 3.1 MG/DL Magnesium Level 2.6 MG/DL 2.6 MG/DL Alkaline Phosphatase 91 U/L Aspartate Amino Transf (AST/SGOT) 12 U/L Alanine Aminotransferase (ALT/SGPT) 10 U/L Total Bilirubin 0.4 MG/DL Sodium Level 136 MEQ/L 139 MEQ/L Potassium Level 4.3 MEQ/L 3.8 MEQ/L Chloride Level 98 MEQ/L 100 MEQ/L Carbon Dioxide Level 30.6 MEQ/L 30.7 MEQ/L White Blood Count 4.3 TH/MM3 Red Blood Count 3.62 MIL/MM3 Hemoglobin 10.0 GM/DL Hematocrit 31.4 % Mean Corpuscular Volume 86.6 FL Mean Corpuscular Hemoglobin 27.5 PG Mean Corpuscular Hemoglobin Concent 31.7 % Red Cell Distribution Width 15.4 % Platelet Count 233 TH/MM3 Mean Platelet Volume 8.8 FL Anion Gap 8 MEQ/L Estimat Glomerular Filtration Rate 9 ML/MIN Hemoglobin A1c 6.7 % Objective Remarks GENERAL: This is a well-nourished, well-developed patient, in no apparent distress. SKIN: Warm and dry. HEENT: Normocephalic. Pupils equal round and reactive. Nose without bleeding. Airway patent. NECK: Trachea midline. No JVD. Supple. CARDIOVASCULAR: Regular rate and rhythm without murmurs, gallops, or rubs. Rt SC Permacath. RESPIRATORY: Diminished bases. No wheezes, rales, or rhonchi. GASTROINTESTINAL: Abdomen soft, nondistended. Bowel Sounds hypoactive. Tenderness to palpate lower quadrant. MUSCULOSKELETAL: Extremities without clubbing, cyanosis, facial edema. NEUROLOGICAL: Lethargic/ drowsy. Oriented to place, person. Moves all extremities weakly. Normal speech. Medications and IVs Current Medications Medications (Trade) Dose Ordered Sig/Abby Route Start Time Stop Time Status Last Admin (D50w (Vial) Inj) 25 ml UNSCH PRN IV PUSH 12/07/16 00:45 (Zofran Inj) 4 mg Q6H PRN IV 12/07/16 00:45 (NS Flush) DAILY IVF 12/07/16 15:30 02/04/17 09:35 (NS Flush) UNSCH PRN IVF 12/07/16 15:30 (Peridex 0.12% Liq) 15 ml BID@08,20 MT 12/07/16 20:00 02/03/17 08:00 (NS Flush) 2 ml UNSCH PRN IV FLUSH 12/07/16 15:30 12/12/16 11:32 (NS Flush) 2 ml BID IV FLUSH 12/07/16 21:00 02/04/17 21:51 (Tylenol) 650 mg Q6H PRN PO 12/07/16 15:30 01/30/17 12:24 (Tears Naturale Opth Soln) 1 drop TID EACH EYE 12/07/16 18:00 02/04/17 09:00 Miscellaneous Information 1 Q361D XX 12/07/16 15:30 (Chlorhexidine 2% Cloth) 3 pack Taper DAILY@04 TOP 12/08/16 04:00 12/04/17 03:59 01/01/17 03:31 (Chlorhexidine 2% Cloth) 3 pack UNSCH PRN TOP 12/07/16 15:30 (Milk Of Magnesia Liq) 30 ml Q12H PRN PO 12/07/16 15:30 01/18/17 15:48 (Senokot) 17.2 mg Q12H PRN PO 12/07/16 15:30 01/08/17 22:36 (Aspirin Chew) 81 mg DAILY CHEW 12/08/16 12:00 02/04/17 09:32 (Trandate Inj) 20 mg Q2H PRN IV 12/10/16 00:15 12/14/16 08:05 (Morphine Inj) 2 mg Q3H PRN IV PUSH 12/10/16 09:15 02/05/17 01:05 (Coreg) 6.25 mg Q12HR PO 12/10/16 10:00 02/04/17 21:49 (Phoslo) 1,334 mg TID PO 12/10/16 13:00 02/04/17 12:28 (Rocaltrol) 0.5 mcg DAILY PO 12/10/16 12:45 Future Hold 01/23/17 12:52 (Symbicort 160-4.5 Inh) 1 puff Q12HR INH 12/11/16 12:00 02/04/17 21:00 (Spiriva Inh) 18 mcg DAILY INH 12/11/16 12:00 02/04/17 09:35 (Norvasc) 10 mg DAILY PO 12/11/16 15:15 02/04/17 09:32 (Apresoline Inj) 20 mg Q4H PRN IV PUSH 12/11/16 15:15 12/18/16 04:26 (Catapres) 0.3 mg Q8H PO 12/12/16 08:00 02/05/17 01:02 Sodium Chloride 1,000 ml @ 0 mls/hr Q0M PRN IV 12/12/16 12:11 02/03/17 12:23 (Heparin Inj) 8,000 units UNSCH PRN IVF 12/12/16 12:15 Future hold 01/06/17 10:58 Sodium Chloride 1,000 ml @ 200 mls/hr Q5H PRN IV 12/12/16 12:11 Sodium Chloride 1,000 ml @ 0 mls/hr Q0M PRN IV 12/12/16 12:11 12/12/16 17:04 (Mannitol Inj) 12.5 gm UNSCH PRN IV 12/12/16 12:15 (Albumin 25% Inj) 25 gm UNSCH PRN IV 12/12/16 12:15 02/03/17 12:22 (NS Flush) 5 ml UNSCH PRN IV FLUSH 12/12/16 12:15 12/26/16 10:34 (Heparin Inj) UNSCH PRN .XX 12/12/16 12:15 02/03/17 12:22 (Gentamicin (Dialysis) Inj) 20 mg UNSCH PRN IV 12/12/16 12:15 02/03/17 12:21 (Zofran Inj) 4 mg UNSCH PRN IV 12/12/16 12:15 (Tylenol) 650 mg UNSCH PRN PO 12/12/16 12:15 01/08/17 15:15 (Benadryl) 25 mg UNSCH PRN PO 12/12/16 12:15 02/04/17 01:20 (Nitrostat Sl) 0.4 mg UNSCH PRN SL 12/12/16 12:15 (Catapres) 0.1 mg UNSCH PRN PO 12/12/16 12:15 12/24/16 18:49 (Epogen Inj) 10,000 units UNSCH PRN IV 12/12/16 12:15 02/03/17 12:22 (Gelfoam 12 Mm/7 Mm Top) 1 foam UNSCH PRN TOP 12/12/16 12:15 (Apresoline) 50 mg Q8HR PO 12/26/16 14:00 02/05/17 05:15 (NS Flush) UNSCH PRN IVF 01/03/17 16:15 (Heparin Inj) UNSCH PRN IV FLUSH 01/03/17 16:15 (Heparin Inj) 5,000 units Q12HR SQ 01/07/17 09:00 Future hold 02/04/17 21:49 (Mucinex Er) 600 mg BID PO 01/12/17 10:30 02/04/17 21:49 (Cepacol Extra Ha (Sugar Free)) 1 lozenge Q2HR PRN BUCCAL 01/13/17 13:00 (Flomax) 0.4 mg HS PO 01/14/17 21:00 02/04/17 21:49 (Fleets Enema (Adult)) 133 ml UNSCH PRN RECTAL 01/18/17 18:30 01/22/17 11:57 (NovoLIN R SUPPLEMENTAL SCALE) 1 ACHS SQ 01/19/17 12:00 02/04/17 21:00 (Narcan Inj) 0.4 mg UNSCH PRN IV PUSH 01/21/17 13:00 (Dulcolax Supp) 10 mg DAILY PRN RECTAL 01/21/17 13:00 01/30/17 17:49 (Lactulose Liq) 30 ml DAILY PRN PO 01/21/17 13:00 01/29/17 15:57 (Sara-Colace) 1 tab BID PO 01/21/17 21:00 02/20/17 20:59 02/04/17 21:49 (Miralax) 17 gm DAILY PO 01/24/17 09:00 02/04/17 09:33 (Duoneb Neb) 1 ampule Q4HR NEB PRN NEB 01/28/17 16:00 02/03/17 22:53 (Levemir Inj) 39 units HS SQ 02/04/17 21:00 02/04/17 21:51 (NovoLOG INJ) 9 units TIDAC SQ 02/04/17 17:00 02/04/17 17:38 A/P Assessment and Plan Mr. Mehta is a 66-year-old male with medical history significant for hypertension and diabetes and CVA who presented to the hospital with a chief complaint of shortness of breath and chest pain. The patient was diagnosed with NSTEMI. Echo was performed which was concerning for thrombus, but study was limited and a repeat was suggested. He has history of chronic kidney disease but worsening of his creatinine was noted. He was seen and evaluated by nephrology who started the patient on hemodialysis. CKD stage IV with GFR 8 Acute renal failure progressing to ESRD - nephrology on board, started on hemodialysis TTHSa - PermaCath placed. Vascular surgery unable to find adequate vein for AVF. - Kidney biopsy on 01/03/2017 --> diffuse and nodular diabetic glomerulosclerosis, segmental and global glomerular sclerosis, interstitial fibrosis and tubular atrophy severe. - Will need HD in outpatient. Awaiting HD set up in outpatient. S/P acute respiratory failure secondary to bilateral lower lobe pneumonias/ community acquired - resolved continue bronchodilator, Mucolytic, and incentive spirometry. COPD - Continue Symbicort and Spiriva - Continue albuterol neb. - Not on exacerbation. NSTEMI Hypertension - Echo performed December 07 showed distinct regional wall abnormalities with a possible clot in the apex. - echo with Definity contrast did not appear to show any clots in LV. - Cardiology was consulted, stable from a cardiac standpoint and recommended continued aggressive risk factor modification - ASA 81 mg daily. Coreg 6.25 mg BID. Norvasc 10 mg daily. Clonidine to 0.3 mg po TID and hydralazine 50 mg by mouth daily 8 hour Diabetes mellitus, with hyperglycemia - Continue Levemir increased to 39 units QHS and sliding scale, also pre meal to 9 units. - HgA1C 6.7 - Improving. Better control BPH - continue Tamsulosin. Stable. Deconditioning: PT recommends SNF, generalized weakness likely due to prolonged hospitalization and multiple medical conditions as above. 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 Constipation, Abdominal pain - Pericolace BID - add Miralax daily, add bisacodyl - monitor for BM Heparin SQ for DVT prophylaxis. Discharge Planning 01/29/17 Patient discharge disposition unchanged. Per previous CM note: Patient case reported to [facility] to assist as pt is not [place] citizen. Discussed case with Nell she will determine if pt to benefit from transitional dialysis.CM will do f/u with CM director today. CM Spoke to Tamy at [employer] rep She stated pt's Medicaid is pending for [facility] Emergency Medicaid it is not affective for placement issues.Patient is NOT a [place] Citizen. Kamaljit Urias MD Feb 05, 2017 8:27 am
[2017-02-05] MEDS: ASPIRIN 81 MG CHEW TAB CHEW SCH (08:38)
[2017-02-05] MEDS: CALCIUM ACETATE 667 MG CAP PO SCH ×3 (08:38→17:01)
[2017-02-05] MEDS: DOCUSATE SODIUM 50 MG/SENNA 8.6 MG TAB PO SCH ×2 (08:39→21:57)
[2017-02-05] MEDS: ARTIFICIAL TEARS OPTH SOLN 15 ML BTL EACH EYE SCH ×3 (08:39→17:06)
[2017-02-05] MEDS: CARVEDILOL 6.25 MG TAB PO SCH ×2 (08:39→21:57)
[2017-02-05] MEDS: guaiFENesin E.R. 600 MG TAB PO SCH ×2 (08:39→21:57)
[2017-02-05] MEDS: SODIUM CHLORIDE 0.9% FLUSH 10 ML FLUSH IV FLUSH SCH ×2 (08:40→21:58)
[2017-02-05] MEDS: TIOTROPIUM BROMIDE 18 MCG INH INH SCH (08:40)
[2017-02-05] MEDS: SODIUM CHLORIDE 0.9% FLUSH 10 ML FLUSH IVF SCH (08:40)
[2017-02-05] MEDS: BUDESONIDE-FORMOTEROL 160/4.5 MCG INHALER INH SCH ×2 (08:40→21:59)
[2017-02-05] MEDS: POLYETHYLENE GLYCOL 17 GM PKG PO SCH (08:41)
[2017-02-05] MEDS: HEPARIN SODIUM - SQ 10,000 UNITS/ML VIAL SQ SCH ×2 (08:56→21:58)
[2017-02-05] MEDS: INSULIN ASPART 1,000 UNITS/10 ML VIAL SQ SCH ×3 (08:57→17:02)
[2017-02-05] MEDS: INSULIN NovoLIN REGULAR SUPPLEMENTAL SCALE SQ SCH ×4 (08:58→22:18)
--- NOTE | 2017-02-05 10:44 | HHI.NPPN ---
Subjective History of Present Illness 66-year-old male with past medical history of hypertension, diabetes mellitus, history of cerebrovascular accident with left-sided weakness, hyperlipidemia, bronchial asthma, chronic kidney disease who was admitted because of shortness of breath and chest pain. I was called to see the patient because of elevated BUN and creatinine. The patient was diagnosed here with non-ST elevation [place]. The patient has history of chronic kidney disease. Additional Remarks Patient is alert, no complain, eating breakfast. Objective Data Data Vital Signs Date Time Temp Pulse Resp B/P (MAP) Pulse Ox O2 Delivery O2 Flow Rate FiO2 02/05/17 08:00 98.4 77 20 130/69 (89) 96 02/05/17 04:04 98.7 71 20 149/66 (93) 95 02/05/17 04:00 Room Air 02/05/17 00:00 Nasal Cannula 3.00 02/04/17 23:57 97.7 71 20 127/60 (82) 95 02/04/17 20:40 Room Air 02/04/17 20:04 97.8 72 20 131/69 (89) 96 02/04/17 20:00 Room Air 02/04/17 16:00 98.0 72 20 115/61 (79) 95 02/04/17 12:00 98.3 81 20 116/65 (82) 96 Physical Exam General Appearance: No Acute Distress, Comfortable Eyes Eye Exam: Pupils Equal Throat Throat Exam: Oral Mucosa [place] & Moist Neck Neck Exam: Neck Supple Pulmonary Resp Exam: No Distress, Rhonchi, Decreased Bases, Diminished Breath Sounds Cardiology CV Exam: Regular, Normal Sinus Rhythm Gastrointestinal/Abdomen GI Exam: Soft, Non-Tender, Bowel Sounds Present Extremeties Extremities Exam: Moderate Edema Neurologic Neuro Exam: Alert, Awake Psychiatric Psych Exam: Appropriate Responses Assessment/Plan Assessment Summary: WILLIE/Acute Renal Failure, CHF, CKD Stage IV Problem List: (1) NSTEMI (non-ST elevated myocardial infarction) ICD Codes: I21.4 - Non-ST elevation (NSTEMI) myocardial infarction Status: Resolved (2) Diabetes mellitus ICD Codes: E11.9 - Diabetes mellitus Status: Chronic (3) Asthma ICD Codes: J45.909 - Asthma Status: Chronic (4) Shortness of breath ICD Codes: R06.02 - Shortness of breath Status: Acute (5) Leg edema ICD Codes: R60.0 - Leg edema Status: Acute (6) Hypertension ICD Codes: I10 - Hypertension Status: Chronic Plan Patient has been non oliguric, Creatinine is still elevated. Has proteinuria, serology negative. Added Phoslo as Po4 is elevated and calcitriol as Calcium is low. BP is better. Follow urine out put and watch for any renal recovery. Got the PermCath , has poor flow from Vascath. The Kidney Biopsy showing Diabetic and Hypertensive renal disease. Case management notes seen. AVF cannot be done as per vascular due to poor veins. HD to continue 3 times a week. Awaiting arrangements for out patient HD. Continue HD as schedule. HD will be in AM. I spoke to Professional Services Manager about plan for D/C. 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
[2017-02-05 12:00] VITALS: BP 136/72; PULSE 83; RESP 20; TEMP 98.1; O2SAT 97
[2017-02-05] MEDS: diphenhydrAMINE HCL 25 MG CAP PO PRN ×2 (13:24→23:58)
[2017-02-05 16:00] VITALS: BP 109/66; PULSE 81; RESP 20; TEMP 98.2; O2SAT 96
[2017-02-05 20:00] VITALS: BP 140/75; PULSE 80; RESP 18; TEMP 98.2; O2SAT 96
[2017-02-05] MEDS: RESP: ALBUTEROL 2.5 MG/IPRATROPIUM 0.5 MG NEB (PRN) NEB (21:46)
[2017-02-05 21:47] VITALS: O2SAT 96
[2017-02-05] MEDS: TAMSULOSIN HCL 0.4 MG CAP PO SCH (22:11)
[2017-02-05] MEDS: INSULIN DETEMIR 100 UNITS/ML VIAL SQ SCH (22:11)
[2017-02-05] MEDS: oxyCODONE/ACETAMINOPHEN 5 MG/325 MG TAB PO PRN (23:58)
[2017-02-06] VITALS: BP 139/78; PULSE 83; RESP 16; TEMP 97.9; O2SAT 95
[2017-02-06] MEDS: CHLORHEXIDINE GLUCONATE 2 % 1 PACK (2 CLOTHS) TOP SCH (03:41)
[2017-02-06 04:00] VITALS: BP 125/69; PULSE 82; RESP 16; TEMP 97.6; O2SAT 96
[2017-02-06] MEDS: oxyCODONE/ACETAMINOPHEN 5 MG/325 MG TAB PO PRN (06:14)
[2017-02-06] MEDS: diphenhydrAMINE HCL 25 MG CAP PO PRN (06:14)
[2017-02-06] MEDS: hydrALAZINE HCL 50 MG TAB PO SCH ×3 (06:14→21:40)
[2017-02-06 08:00] VITALS: BP 124/64; PULSE 79; RESP 20; TEMP 97.5; O2SAT 97
[2017-02-06] MEDS: cloNIDine HCL 0.3 MG TAB PO SCH ×3 (08:00→23:58)
[2017-02-06] MEDS: CHLORHEXIDINE 0.12% (ORAL KIT) 15 ML CUP MT SCH ×2 (08:00→20:00)
[2017-02-06] MEDS: INSULIN ASPART 1,000 UNITS/10 ML VIAL SQ SCH ×3 (08:27→17:54)
[2017-02-06] MEDS: INSULIN NovoLIN REGULAR SUPPLEMENTAL SCALE SQ SCH ×4 (08:28→21:00)
[2017-02-06] MEDS: DOCUSATE SODIUM 50 MG/SENNA 8.6 MG TAB PO SCH ×2 (09:00→21:40)
[2017-02-06] MEDS: ARTIFICIAL TEARS OPTH SOLN 15 ML BTL EACH EYE SCH ×3 (09:00→17:56)
[2017-02-06] MEDS: BUDESONIDE-FORMOTEROL 160/4.5 MCG INHALER INH SCH ×2 (09:00→21:00)
[2017-02-06] MEDS: CARVEDILOL 6.25 MG TAB PO SCH ×2 (09:00→21:40)
[2017-02-06] MEDS: TIOTROPIUM BROMIDE 18 MCG INH INH SCH (09:00)
[2017-02-06] MEDS: ASPIRIN 81 MG CHEW TAB CHEW SCH (09:00)
[2017-02-06] MEDS: POLYETHYLENE GLYCOL 17 GM PKG PO SCH (09:00)
[2017-02-06] MEDS: guaiFENesin E.R. 600 MG TAB PO SCH ×2 (09:00→21:40)
[2017-02-06] MEDS: SODIUM CHLORIDE 0.9% FLUSH 10 ML FLUSH IV FLUSH SCH ×2 (09:00→21:47)
[2017-02-06] MEDS: HEPARIN SODIUM - SQ 10,000 UNITS/ML VIAL SQ SCH ×2 (09:00→21:40)
[2017-02-06] MEDS: CALCIUM ACETATE 667 MG CAP PO SCH ×3 (09:00→17:56)
[2017-02-06] MEDS: SODIUM CHLORIDE 0.9% FLUSH 10 ML FLUSH IVF SCH (09:00)
[2017-02-06] MEDS: RESP: ALBUTEROL 2.5 MG/IPRATROPIUM 0.5 MG NEB (PRN) NEB ×2 (09:32→16:56)
--- NOTE | 2017-02-06 10:46 | HHI.NPPN ---
Subjective History of Present Illness 66-year-old male with past medical history of hypertension, diabetes mellitus, history of cerebrovascular accident with left-sided weakness, hyperlipidemia, bronchial asthma, chronic kidney disease who was admitted because of shortness of breath and chest pain. I was called to see the patient because of elevated BUN and creatinine. The patient was diagnosed here with non-ST elevation [place]. The patient has history of chronic kidney disease. Additional Remarks Patient is alert, now on HD, has SOB. Objective Data Data Vital Signs Date Time Temp Pulse Resp B/P (MAP) Pulse Ox O2 Delivery O2 Flow Rate FiO2 02/06/17 08:00 97.5 79 20 124/64 (84) 97 02/06/17 04:00 97.6 82 16 125/69 (87) 96 02/06/17 00:00 97.9 83 16 139/78 (98) 95 02/05/17 21:47 96 02/05/17 20:45 Room Air 02/05/17 20:00 98.2 80 18 140/75 (96) 96 02/05/17 16:00 98.2 81 20 109/66 (80) 96 02/05/17 16:00 96 Room Air 02/05/17 12:00 98.1 83 20 136/72 (93) 97 02/05/17 12:00 97 Room Air Physical Exam General Appearance: No Acute Distress, Comfortable Eyes Eye Exam: Pupils Equal Throat Throat Exam: Oral Mucosa [place] & Moist Neck Neck Exam: Neck Supple Pulmonary Resp Exam: No Distress, Rhonchi, Decreased Bases, Diminished Breath Sounds Cardiology CV Exam: Regular, Normal Sinus Rhythm Gastrointestinal/Abdomen GI Exam: Soft, Non-Tender, Bowel Sounds Present Extremeties Extremities Exam: Moderate Edema Neurologic Neuro Exam: Alert, Awake Psychiatric Psych Exam: Appropriate Responses Assessment/Plan Assessment Summary: WILLIE/Acute Renal Failure, CHF, CKD Stage IV Problem List: (1) NSTEMI (non-ST elevated myocardial infarction) ICD Codes: I21.4 - Non-ST elevation (NSTEMI) myocardial infarction Status: Resolved (2) Diabetes mellitus ICD Codes: E11.9 - Diabetes mellitus Status: Chronic (3) Asthma ICD Codes: J45.909 - Asthma Status: Chronic (4) Shortness of breath ICD Codes: R06.02 - Shortness of breath Status: Acute (5) Leg edema ICD Codes: R60.0 - Leg edema Status: Acute (6) Hypertension ICD Codes: I10 - Hypertension Status: Chronic Plan Patient has been non oliguric, Creatinine is still elevated. Has proteinuria, serology negative. Added Phoslo as Po4 is elevated and calcitriol as Calcium is low. BP is better. Follow urine out put and watch for any renal recovery. Got the PermCath , has poor flow from Vascath. The Kidney Biopsy showing Diabetic and Hypertensive renal disease. Case management notes seen. AVF cannot be done as per vascular due to poor veins. HD to continue 3 times a week. Continue HD as schedule. Infrastructure Project Manager arranging transitional HD. HD now, remove fluid as tolerated. Problem Qualifiers (1) Diabetes mellitus: Qualified Codes: E11.22 - Type 2 diabetes mellitus with diabetic chronic kidney disease; N18.4 - Chronic kidney disease, stage 4 (severe); Z79.4 - USP (current) use of insulin (2) Hypertension: Qualified Codes: I10 - Essential (primary) hypertension Zoey Carbone MD Feb 06, 2017 10:46
[2017-02-06] MEDS: HEPARIN SODIUM - IV 10,000 UNITS/10 ML VIAL PRN (11:30)
[2017-02-06] MEDS: ALBUMIN HUMAN 25% 25 GM/100 ML BAGP IV PRN (11:30)
[2017-02-06] MEDS: EPOETIN ALFA 10,000 UNITS/ML VIAL IV PRN (11:30)
[2017-02-06] MEDS: SODIUM CHLOR 0.9% 1000 ML INJ 1,000 ML IV PRN (11:30)
[2017-02-06] MEDS: GENTAMICIN SULFATE (DIALYSIS USE ONLY) 20 MG/2 ML VIAL IV PRN (11:30)
--- NOTE | 2017-02-06 12:46 | HHI.PR ---
Subjective Remarks Follow-up visit acute renal failure going on end-stage renal disease on hemodialysis, COPD, NSTEMI. Seen in his bedroom no new issues. Objective Vital Signs Date Time Temp Pulse Resp B/P (MAP) Pulse Ox O2 Delivery O2 Flow Rate FiO2 02/06/17 08:00 97.5 79 20 124/64 (84) 97 02/06/17 04:00 97.6 82 16 125/69 (87) 96 02/06/17 00:00 97.9 83 16 139/78 (98) 95 02/05/17 21:47 96 02/05/17 20:45 Room Air 02/05/17 20:00 98.2 80 18 140/75 (96) 96 02/05/17 16:00 98.2 81 20 109/66 (80) 96 02/05/17 16:00 96 Room Air I/O 02/05/17 02/05/17 02/05/17 02/06/17 02/06/17 02/06/17 07:00 15:00 23:00 07:00 15:00 23:00 Intake Total 240 ml 100 ml Balance 240 ml 100 ml Intake Oral 240 ml 100 ml # Voids 0 Imaging Last Impressions Venous Access Device Injection 01/30/17 0000 Signed Impressions: Service Date/Time: Monday, January 30, 2017 00:00 - CONCLUSION: Right IJ PermCath is in excellent position and appears to be functioning appropriately. Filiberto Rodarte MD Chest X-Ray 01/28/17 0000 Signed Impressions: Service Date/Time: Saturday, January 28, 2017 14:00 - CONCLUSION: Normal examination. Right-sided dual-lumen catheter in good position. Yoni Bya MD Carotid Artery Ultrasound 01/10/17 0000 Signed Impressions: Service Date/Time: Tuesday, January 10, 2017 12:25 - CONCLUSION: Negative examination for a hemodynamically significant carotid stenosis. Marek Burnett MD FACR Upper Extremity Ultrasound 01/05/17 0000 Signed Impressions: Service Date/Time: Thursday, January 05, 2017 18:56 - CONCLUSION: Normal examination. Ji Martinez MD Renal Biopsy CT 01/03/17 0000 Signed Impressions: Service Date/Time: Tuesday, January 03, 2017 13:28 - CONCLUSION: Uncomplicated CT guided biopsy. Ji Cedillo MD Central Venous Line 01/03/17 0000 Signed Impressions: Service Date/Time: Tuesday, January 03, 2017 00:00 - CONCLUSION: Uncomplicated catheter removal. Filiberto Rodarte MD Catheter Placement X-Ray 01/03/17 0000 Signed Impressions: Service Date/Time: Tuesday, January 03, 2017 14:27 - CONCLUSION: Uncomplicated PermaCath placement as above. Filiberto Rodarte MD Chest CT 12/08/16 0000 Signed Impressions: Service Date/Time: Thursday, December 08, 2016 14:02 - CONCLUSION: 1. Bilateral lower lobe consolidating airspace disease. 2. Small to moderate bilateral pleural effusions; larger on the left. 3. Cardiomegaly. 4. Endotracheal and nasogastric tubes in good position. Tutu Christianson MD Renal Ultrasound 12/07/16 0000 Signed Impressions: Service Date/Time: November 07:54 - CONCLUSION: Unremarkable and stable bilateral renal ultrasound. No evidence of hydronephrosis. Baron Medrano MD Procedures Hemodialysis Other Results Laboratory Tests Test 12/06/16 23:25 12/07/16 04:02 12/07/16 06:00 12/07/16 09:05 Total Creatine Kinase 607 U/L Creatine Kinase MB 9.8 NG/ML Creatine Kinase MB % 1.6 % Serum Osmolality 320 MOSM/KG Nasal Screen MRSA (PCR) MRSA NOT DETECTED Urine Color YELLOW Urine Turbidity CLEAR Urine pH 6.0 Urine Specific Julian 1.014 Urine Protein 300 mg/dL Urine Glucose (UA) 70 mg/dL Urine Ketones NEG mg/dL Urine Occult Blood LARGE Urine Nitrite NEG Urine Bilirubin NEG Urine Urobilinogen LESS THAN 2.0 MG/DL Urine Leukocyte Esterase NEG Urine RBC 91 /hpf Urine WBC 4 /hpf Urine Bacteria OCC /hpf Urine Hyaline Casts 2 /lpf Microscopic Urinalysis Comment CATH Urine Eosinophils NONE SEEN /HPF Test 12/07/16 17:30 12/08/16 03:30 12/08/16 04:20 12/09/16 08:45 Urine Random Creatinine 209.8 MG/DL Urine Random Sodium 16 MEQ/L Fibrinogen 747 mg/dL Lactic Acid Level 1.5 mmol/L Blood Urea Nitrogen 69 MG/DL Creatinine 8.09 MG/DL Random Glucose 253 MG/DL Total Protein 6.6 GM/DL Albumin 2.3 GM/DL Calcium Level 8.5 MG/DL Phosphorus Level 5.6 MG/DL Magnesium Level 1.8 MG/DL Alkaline Phosphatase 88 U/L Aspartate Amino Transf (AST/SGOT) 14 U/L Alanine Aminotransferase (ALT/SGPT) 18 U/L Total Bilirubin 0.3 MG/DL Direct Bilirubin 0.1 MG/DL Sodium Level 140 MEQ/L Potassium Level 4.3 MEQ/L Chloride Level 106 MEQ/L Carbon Dioxide Level 16.9 MEQ/L Indirect Bilirubin 0.2 MG/DL Ammonia LESS THAN 10 MCMOL/L Troponin I 2.86 NG/ML Lipase 114 U/L Thyroid Stimulating Hormone 3rd Gen 1.080 uIU/ML B-Type Natriuretic Peptide 320 PG/ML Blood Gas Puncture Site RT RADIAL Blood Gas Patient Temperature 98.6 Blood Gas HCO3 22 mmol/L Blood Gas Base Excess -1.9 mmol/L Blood Gas Oxygen Saturation 92 % Arterial Blood pH 7.41 Arterial Blood Partial Pressure CO2 35 mmHg Arterial Blood Partial Pressure O2 82 mmHg Arterial Blood Oxygen Content 11.3 Vol % Arterial Blood Carboxyhemoglobin 1.2 % Arterial Blood Methemoglobin 2.1 % Blood Gas Hemoglobin 8.6 G/DL Oxygen Delivery Device VENTILATOR Blood Gas Ventilator Setting CPAP+5/PS5 Blood Gas Inspired Oxygen 35 % Test 12/10/16 04:45 12/11/16 12:00 12/12/16 05:05 12/12/16 12:36 Anti-Nuclear Antibody Screen NEG Anti-Proteinase 3 (c-ANCA) LESS THAN 1.0 AI Anti-Myeloperoxidase Ab (p-ANCA) LESS THAN 1.0 AI Complement C3 114 MG/DL Complement C4 41 MG/DL Urine Total Volume 24 Hours 3850 ML Urine Total Protein 24 Hour 6191 MG/24HR Nucleated Red Blood Cells 1 /100 WBC Ovalocytes 1+ Protein Corrected Calcium 7.6 MG/DL Hepatitis A IgM Antibody NEGATIVE Hepatitis B Surface Antigen NEGATIVE Hepatitis B Core IgM Antibody NEGATIVE Hepatitis C Antibody NEGATIVE Test 12/13/16 04:30 12/14/16 05:35 12/17/16 05:28 12/18/16 01:48 [place] Cells 1+ Differential Total Cells Counted 100 Neutrophils % (Manual) 87 % Band Neutrophils % 1 % Lymphocytes % 4 % Monocytes % 4 % Neutrophils # (Manual) 8.4 TH/MM3 Metamyelocytes 1 % Myelocytes 3 % Red Cell Morphology Comment NORMAL Platelet Estimate NORMAL Platelet Morphology Comment NORMAL Test 12/23/16 07:33 01/04/17 14:07 01/26/17 07:40 01/30/17 08:50 Polychromasia 2.1 % Prothrombin Time 10.7 SEC Prothromb Time International Ratio 1.0 RATIO Activated Partial Thromboplast Time 21.7 SEC Neutrophils (%) (Auto) 44.2 % Lymphocytes (%) (Auto) 27.8 % Monocytes (%) (Auto) 17.1 % Eosinophils (%) (Auto) 9.9 % Basophils (%) (Auto) 1.0 % Neutrophils # (Auto) 3.0 TH/MM3 Lymphocytes # (Auto) 1.9 TH/MM3 Monocytes # (Auto) 1.2 TH/MM3 Eosinophils # (Auto) 0.7 TH/MM3 Basophils # (Auto) 0.1 TH/MM3 CBC Comment DIFF FINAL Differential Comment Blood Urea Nitrogen 54 MG/DL 49 MG/DL Creatinine 6.37 MG/DL 6.43 MG/DL Random Glucose 133 MG/DL 137 MG/DL Total Protein 8.1 GM/DL Albumin 3.6 GM/DL Calcium Level 10.0 MG/DL 9.8 MG/DL Phosphorus Level 3.0 MG/DL 3.1 MG/DL Magnesium Level 2.6 MG/DL 2.6 MG/DL Alkaline Phosphatase 91 U/L Aspartate Amino Transf (AST/SGOT) 12 U/L Alanine Aminotransferase (ALT/SGPT) 10 U/L Total Bilirubin 0.4 MG/DL Sodium Level 136 MEQ/L 139 MEQ/L Potassium Level 4.3 MEQ/L 3.8 MEQ/L Chloride Level 98 MEQ/L 100 MEQ/L Carbon Dioxide Level 30.6 MEQ/L 30.7 MEQ/L White Blood Count 4.3 TH/MM3 Red Blood Count 3.62 MIL/MM3 Hemoglobin 10.0 GM/DL Hematocrit 31.4 % Mean Corpuscular Volume 86.6 FL Mean Corpuscular Hemoglobin 27.5 PG Mean Corpuscular Hemoglobin Concent 31.7 % Red Cell Distribution Width 15.4 % Platelet Count 233 TH/MM3 Mean Platelet Volume 8.8 FL Anion Gap 8 MEQ/L Estimat Glomerular Filtration Rate 9 ML/MIN Hemoglobin A1c 6.7 % Objective Remarks GENERAL: This is a well-nourished, well-developed patient, in no apparent distress. SKIN: Warm and dry. HEENT: Normocephalic. Pupils equal round and reactive. Nose without bleeding. Airway patent. NECK: Trachea midline. No JVD. Supple. CARDIOVASCULAR: Regular rate and rhythm without murmurs, gallops, or rubs. Rt SC Permacath. RESPIRATORY: Diminished bases. No wheezes, rales, or rhonchi. GASTROINTESTINAL: Abdomen soft, nondistended. Bowel Sounds hypoactive. Tenderness to palpate lower quadrant. MUSCULOSKELETAL: Extremities without clubbing, cyanosis, facial edema. NEUROLOGICAL: Lethargic/ drowsy. Oriented to place, person. Moves all extremities weakly. Normal speech. Medications and IVs Current Medications Medications (Trade) Dose Ordered Sig/Abby Route Start Time Stop Time Status Last Admin (D50w (Vial) Inj) 25 ml UNSCH PRN IV PUSH 12/07/16 00:45 (Zofran Inj) 4 mg Q6H PRN IV 12/07/16 00:45 (NS Flush) DAILY IVF 12/07/16 15:30 02/04/17 09:35 (NS Flush) UNSCH PRN IVF 12/07/16 15:30 (Peridex 0.12% Liq) 15 ml BID@08,20 MT 12/07/16 20:00 02/05/17 08:00 (NS Flush) 2 ml UNSCH PRN IV FLUSH 12/07/16 15:30 12/12/16 11:32 (NS Flush) 2 ml BID IV FLUSH 12/07/16 21:00 02/05/17 21:58 (Tylenol) 650 mg Q6H PRN PO 12/07/16 15:30 01/30/17 12:24 (Tears Naturale Opth Soln) 1 drop TID EACH EYE 12/07/16 18:00 02/05/17 17:06 Miscellaneous Information 1 Q361D XX 12/07/16 15:30 (Chlorhexidine 2% Cloth) 3 pack Taper DAILY@04 TOP 12/08/16 04:00 12/04/17 03:59 01/01/17 03:31 (Chlorhexidine 2% Cloth) 3 pack UNSCH PRN TOP 12/07/16 15:30 (Milk Of Magnesia Liq) 30 ml Q12H PRN PO 12/07/16 15:30 01/18/17 15:48 (Senokot) 17.2 mg Q12H PRN PO 12/07/16 15:30 01/08/17 22:36 (Aspirin Chew) 81 mg DAILY CHEW 12/08/16 12:00 02/05/17 08:38 (Trandate Inj) 20 mg Q2H PRN IV 12/10/16 00:15 12/14/16 08:05 (Coreg) 6.25 mg Q12HR PO 12/10/16 10:00 02/05/17 21:57 (Phoslo) 1,334 mg TID PO 12/10/16 13:00 02/05/17 17:01 (Rocaltrol) 0.5 mcg DAILY PO 12/10/16 12:45 Future Hold 01/23/17 12:52 (Symbicort 160-4.5 Inh) 1 puff Q12HR INH 12/11/16 12:00 02/05/17 21:59 (Spiriva Inh) 18 mcg DAILY INH 12/11/16 12:00 02/05/17 08:40 (Norvasc) 10 mg DAILY PO 12/11/16 15:15 02/05/17 08:41 (Apresoline Inj) 20 mg Q4H PRN IV PUSH 12/11/16 15:15 12/18/16 04:26 (Catapres) 0.3 mg Q8H PO 12/12/16 08:00 02/05/17 23:58 Sodium Chloride 1,000 ml @ 0 mls/hr Q0M PRN IV 12/12/16 12:11 02/06/17 11:30 (Heparin Inj) 8,000 units UNSCH PRN IVF 12/12/16 12:15 Future hold 01/06/17 10:58 Sodium Chloride 1,000 ml @ 200 mls/hr Q5H PRN IV 12/12/16 12:11 Sodium Chloride 1,000 ml @ 0 mls/hr Q0M PRN IV 12/12/16 12:11 12/12/16 17:04 (Mannitol Inj) 12.5 gm UNSCH PRN IV 12/12/16 12:15 (Albumin 25% Inj) 25 gm UNSCH PRN IV 12/12/16 12:15 02/06/17 11:30 (NS Flush) 5 ml UNSCH PRN IV FLUSH 12/12/16 12:15 12/26/16 10:34 (Heparin Inj) UNSCH PRN .XX 12/12/16 12:15 02/06/17 11:30 (Gentamicin (Dialysis) Inj) 20 mg UNSCH PRN IV 12/12/16 12:15 02/06/17 11:30 (Zofran Inj) 4 mg UNSCH PRN IV 12/12/16 12:15 (Benadryl) 25 mg UNSCH PRN PO 12/12/16 12:15 02/06/17 06:14 (Nitrostat Sl) 0.4 mg UNSCH PRN SL 12/12/16 12:15 (Catapres) 0.1 mg UNSCH PRN PO 12/12/16 12:15 12/24/16 18:49 (Epogen Inj) 10,000 units UNSCH PRN IV 12/12/16 12:15 02/06/17 11:30 (Gelfoam 12 Mm/7 Mm Top) 1 foam UNSCH PRN TOP 12/12/16 12:15 (Apresoline) 50 mg Q8HR PO 12/26/16 14:00 02/06/17 06:14 (NS Flush) UNSCH PRN IVF 01/03/17 16:15 (Heparin Inj) UNSCH PRN IV FLUSH 01/03/17 16:15 (Heparin Inj) 5,000 units Q12HR SQ 01/07/17 09:00 Future hold 02/05/17 21:58 (Mucinex Er) 600 mg BID PO 01/12/17 10:30 02/05/17 21:57 (Cepacol Extra Ha (Sugar Free)) 1 lozenge Q2HR PRN BUCCAL 01/13/17 13:00 (Flomax) 0.4 mg HS PO 01/14/17 21:00 02/05/17 22:11 (Fleets Enema (Adult)) 133 ml UNSCH PRN RECTAL 01/18/17 18:30 01/22/17 11:57 (NovoLIN R SUPPLEMENTAL SCALE) 1 ACHS SQ 01/19/17 12:00 02/06/17 08:28 (Narcan Inj) 0.4 mg UNSCH PRN IV PUSH 01/21/17 13:00 (Dulcolax Supp) 10 mg DAILY PRN RECTAL 01/21/17 13:00 01/30/17 17:49 (Lactulose Liq) 30 ml DAILY PRN PO 01/21/17 13:00 01/29/17 15:57 (Sara-Colace) 1 tab BID PO 01/21/17 21:00 02/20/17 20:59 02/05/17 21:57 (Miralax) 17 gm DAILY PO 01/24/17 09:00 02/05/17 08:41 (Duoneb Neb) 1 ampule Q4HR NEB PRN NEB 01/28/17 16:00 02/06/17 09:32 (Levemir Inj) 39 units HS SQ 02/04/17 21:00 02/05/17 22:11 (NovoLOG INJ) 9 units TIDAC SQ 02/04/17 17:00 02/06/17 08:27 (Percocet 5-325 Mg) 1 tab Q4H PRN PO 02/05/17 13:00 02/06/17 06:14 A/P Assessment and Plan Mr. Mehta is a 66-year-old male with medical history significant for hypertension and diabetes and CVA who presented to the hospital with a chief complaint of shortness of breath and chest pain. The patient was diagnosed with NSTEMI. Echo was performed which was concerning for thrombus, but study was limited and a repeat was suggested. He has history of chronic kidney disease but worsening of his creatinine was noted. He was seen and evaluated by nephrology who started the patient on hemodialysis. CKD stage IV with GFR 8 Acute renal failure progressing to ESRD - nephrology on board, started on hemodialysis TTHSa - PermaCath placed. Vascular surgery unable to find adequate vein for AVF. - Kidney biopsy on 01/03/2017 --> diffuse and nodular diabetic glomerulosclerosis, segmental and global glomerular sclerosis, interstitial fibrosis and tubular atrophy severe. - Will need HD in outpatient. Awaiting HD set up in outpatient. S/P acute respiratory failure secondary to bilateral lower lobe pneumonias/ community acquired - resolved continue bronchodilator, Mucolytic, and incentive spirometry. COPD - Continue Symbicort and Spiriva - Continue albuterol neb. - Not on exacerbation. NSTEMI Hypertension - Echo performed December 07 showed distinct regional wall abnormalities with a possible clot in the apex. - echo with Definity contrast did not appear to show any clots in LV. - Cardiology was consulted, stable from a cardiac standpoint and recommended continued aggressive risk factor modification - ASA 81 mg daily. Coreg 6.25 mg BID. Norvasc 10 mg daily. Clonidine to 0.3 mg po TID and hydralazine 50 mg by mouth daily 8 hour Diabetes mellitus, with hyperglycemia - Continue Levemir increased to 39 units QHS and sliding scale, also pre meal to 9 units. - HgA1C 6.7 - Improving. Better control BPH - continue Tamsulosin. Stable. Deconditioning: PT recommends SNF, generalized weakness likely due to prolonged hospitalization and multiple medical conditions as above. 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 Constipation, Abdominal pain - Pericolace BID - add Miralax daily, add bisacodyl - monitor for BM Heparin SQ for DVT prophylaxis. No changes to anterior management. Discharge Planning Awaiting for placement or Hemodialysis as outpatient. Kamaljit Urias MD Feb 06, 2017 12:46
[2017-02-06 16:00] VITALS: BP 127/70; PULSE 97; RESP 20; TEMP 97.2; O2SAT 98
[2017-02-06 16:59] VITALS: O2SAT 95
[2017-02-06 20:00] VITALS: BP 120/71; PULSE 84; RESP 16; TEMP 97.6; O2SAT 97
[2017-02-06] MEDS: INSULIN DETEMIR 100 UNITS/ML VIAL SQ SCH (21:40)
[2017-02-06] MEDS: TAMSULOSIN HCL 0.4 MG CAP PO SCH (21:40)
[2017-02-07] VITALS (7 sets, daily range): BP systolic 103–129; BP diastolic 58–65; PULSE 62–82; RESP 16–20; TEMP 97.4–98.2; O2SAT 97–100
[2017-02-07] MEDS: oxyCODONE/ACETAMINOPHEN 5 MG/325 MG TAB PO PRN ×2 (02:31→09:54)
[2017-02-07] MEDS: CHLORHEXIDINE GLUCONATE 2 % 1 PACK (2 CLOTHS) TOP SCH (04:00)
[2017-02-07] MEDS: hydrALAZINE HCL 50 MG TAB PO SCH ×3 (06:16→21:44)
[2017-02-07] MEDS: CHLORHEXIDINE 0.12% (ORAL KIT) 15 ML CUP MT SCH ×2 (08:00→20:00)
[2017-02-07] MEDS: INSULIN NovoLIN REGULAR SUPPLEMENTAL SCALE SQ SCH ×4 (08:00→21:00)
[2017-02-07] MEDS: cloNIDine HCL 0.3 MG TAB PO SCH ×3 (08:00→23:12)
[2017-02-07] MEDS: POLYETHYLENE GLYCOL 17 GM PKG PO SCH (09:00)
[2017-02-07] MEDS: SODIUM CHLORIDE 0.9% FLUSH 10 ML FLUSH IV FLUSH SCH ×2 (09:00→21:45)
[2017-02-07] MEDS: DOCUSATE SODIUM 50 MG/SENNA 8.6 MG TAB PO SCH ×2 (09:00→21:44)
[2017-02-07] MEDS: SODIUM CHLORIDE 0.9% FLUSH 10 ML FLUSH IVF SCH (09:00)
[2017-02-07] MEDS: ASPIRIN 81 MG CHEW TAB CHEW SCH (09:53)
[2017-02-07] MEDS: CALCIUM ACETATE 667 MG CAP PO SCH ×3 (09:54→17:55)
[2017-02-07] MEDS: CARVEDILOL 6.25 MG TAB PO SCH ×2 (09:54→21:44)
[2017-02-07] MEDS: guaiFENesin E.R. 600 MG TAB PO SCH ×2 (09:54→21:44)
[2017-02-07] MEDS: ARTIFICIAL TEARS OPTH SOLN 15 ML BTL EACH EYE SCH ×3 (09:55→17:59)
[2017-02-07] MEDS: BUDESONIDE-FORMOTEROL 160/4.5 MCG INHALER INH SCH ×2 (09:55→21:45)
[2017-02-07] MEDS: TIOTROPIUM BROMIDE 18 MCG INH INH SCH (09:55)
[2017-02-07] MEDS: HEPARIN SODIUM - SQ 10,000 UNITS/ML VIAL SQ SCH ×2 (09:56→21:45)
[2017-02-07] MEDS: INSULIN ASPART 1,000 UNITS/10 ML VIAL SQ SCH ×3 (10:01→18:00)
--- NOTE | 2017-02-07 10:18 | HHI.PR ---
Subjective Remarks Follow-up visit acute renal failure going on end-stage renal disease on hemodialysis, COPD, NSTEMI. Seen in his bedroom, no complaint, no nausea, vomit or diarrhea. Objective Vital Signs Date Time Temp Pulse Resp B/P (MAP) Pulse Ox O2 Delivery O2 Flow Rate FiO2 02/07/17 04:00 Nasal Cannula 2.00 02/07/17 04:00 97.6 76 16 114/61 (78) 99 02/07/17 00:00 Nasal Cannula 2.00 02/07/17 00:00 98.0 82 16 119/58 (78) 100 02/06/17 20:00 Room Air 02/06/17 20:00 97.6 84 16 120/71 (87) 97 02/06/17 16:59 95 02/06/17 16:00 97.2 97 20 127/70 (89) 98 I/O 02/06/17 02/06/17 02/06/17 02/07/17 02/07/17 02/07/17 06:59 14:59 22:59 06:59 14:59 22:59 Intake Total 280 ml Output Total 1200 ml 0 ml Balance -1200 ml 280 ml Intake Oral 280 ml Output Urine Total 0 ml Hemodialysis 1200 ml # Bowel Movements 0 Imaging Last Impressions Venous Access Device Injection 01/30/17 0000 Signed Impressions: Service Date/Time: Monday, January 30, 2017 00:00 - CONCLUSION: Right IJ PermCath is in excellent position and appears to be functioning appropriately. Filiberto Rodarte MD Chest X-Ray 01/28/17 0000 Signed Impressions: Service Date/Time: Saturday, January 28, 2017 14:00 - CONCLUSION: Normal examination. Right-sided dual-lumen catheter in good position. Yoni Bay MD Carotid Artery Ultrasound 01/10/17 0000 Signed Impressions: Service Date/Time: Tuesday, January 10, 2017 12:25 - CONCLUSION: Negative examination for a hemodynamically significant carotid stenosis. Marek Burnett MD FACR Upper Extremity Ultrasound 01/05/17 0000 Signed Impressions: Service Date/Time: Thursday, January 05, 2017 18:56 - CONCLUSION: Normal examination. Ji Martinez MD Renal Biopsy CT 01/03/17 0000 Signed Impressions: Service Date/Time: Tuesday, January 03, 2017 13:28 - CONCLUSION: Uncomplicated CT guided biopsy. Ji Cedillo MD Central Venous Line 01/03/17 0000 Signed Impressions: Service Date/Time: Tuesday, January 03, 2017 00:00 - CONCLUSION: Uncomplicated catheter removal. Filiberto Rodarte MD Catheter Placement X-Ray 01/03/17 0000 Signed Impressions: Service Date/Time: Tuesday, January 03, 2017 14:27 - CONCLUSION: Uncomplicated PermaCath placement as above. Filiberto Rodarte MD Chest CT 12/08/16 0000 Signed Impressions: Service Date/Time: Thursday, December 08, 2016 14:02 - CONCLUSION: 1. Bilateral lower lobe consolidating airspace disease. 2. Small to moderate bilateral pleural effusions; larger on the left. 3. Cardiomegaly. 4. Endotracheal and nasogastric tubes in good position. Tutu Christianson MD Renal Ultrasound 12/07/16 0000 Signed Impressions: Service Date/Time: November 07:54 - CONCLUSION: Unremarkable and stable bilateral renal ultrasound. No evidence of hydronephrosis. Baron Medrano MD Procedures Hemodialysis Other Results Laboratory Tests Test 12/06/16 23:25 12/07/16 04:02 12/07/16 06:00 12/07/16 09:05 Total Creatine Kinase 607 U/L Creatine Kinase MB 9.8 NG/ML Creatine Kinase MB % 1.6 % Serum Osmolality 320 MOSM/KG Nasal Screen MRSA (PCR) MRSA NOT DETECTED Urine Color YELLOW Urine Turbidity CLEAR Urine pH 6.0 Urine Specific [place] 1.014 Urine Protein 300 mg/dL Urine Glucose (UA) 70 mg/dL Urine Ketones NEG mg/dL Urine Occult Blood LARGE Urine Nitrite NEG Urine Bilirubin NEG Urine Urobilinogen LESS THAN 2.0 MG/DL Urine Leukocyte Esterase NEG Urine RBC 91 /hpf Urine WBC 4 /hpf Urine Bacteria OCC /hpf Urine Hyaline Casts 2 /lpf Microscopic Urinalysis Comment CATH Urine Eosinophils NONE SEEN /HPF Test 12/07/16 17:30 12/08/16 03:30 12/08/16 04:20 12/09/16 08:45 Urine Random Creatinine 209.8 MG/DL Urine Random Sodium 16 MEQ/L Fibrinogen 747 mg/dL Lactic Acid Level 1.5 mmol/L Blood Urea Nitrogen 69 MG/DL Creatinine 8.09 MG/DL Random Glucose 253 MG/DL Total Protein 6.6 GM/DL Albumin 2.3 GM/DL Calcium Level 8.5 MG/DL Phosphorus Level 5.6 MG/DL Magnesium Level 1.8 MG/DL Alkaline Phosphatase 88 U/L Aspartate Amino Transf (AST/SGOT) 14 U/L Alanine Aminotransferase (ALT/SGPT) 18 U/L Total Bilirubin 0.3 MG/DL Direct Bilirubin 0.1 MG/DL Sodium Level 140 MEQ/L Potassium Level 4.3 MEQ/L Chloride Level 106 MEQ/L Carbon Dioxide Level 16.9 MEQ/L Indirect Bilirubin 0.2 MG/DL Ammonia LESS THAN 10 MCMOL/L Troponin I 2.86 NG/ML Lipase 114 U/L Thyroid Stimulating Hormone 3rd Gen 1.080 uIU/ML B-Type Natriuretic Peptide 320 PG/ML Blood Gas Puncture Site RT RADIAL Blood Gas Patient Temperature 98.6 Blood Gas HCO3 22 mmol/L Blood Gas Base Excess -1.9 mmol/L Blood Gas Oxygen Saturation 92 % Arterial Blood pH 7.41 Arterial Blood Partial Pressure CO2 35 mmHg Arterial Blood Partial Pressure O2 82 mmHg Arterial Blood Oxygen Content 11.3 Vol % Arterial Blood Carboxyhemoglobin 1.2 % Arterial Blood Methemoglobin 2.1 % Blood Gas Hemoglobin 8.6 G/DL Oxygen Delivery Device VENTILATOR Blood Gas Ventilator Setting CPAP+5/PS5 Blood Gas Inspired Oxygen 35 % Test 12/10/16 04:45 12/11/16 12:00 12/12/16 05:05 12/12/16 12:36 Anti-Nuclear Antibody Screen NEG Anti-Proteinase 3 (c-ANCA) LESS THAN 1.0 AI Anti-Myeloperoxidase Ab (p-ANCA) LESS THAN 1.0 AI Complement C3 114 MG/DL Complement C4 41 MG/DL Urine Total Volume 24 Hours 3850 ML Urine Total Protein 24 Hour 6191 MG/24HR Nucleated Red Blood Cells 1 /100 WBC Ovalocytes 1+ Protein Corrected Calcium 7.6 MG/DL Hepatitis A IgM Antibody NEGATIVE Hepatitis B Surface Antigen NEGATIVE Hepatitis B Core IgM Antibody NEGATIVE Hepatitis C Antibody NEGATIVE Test 12/13/16 04:30 12/14/16 05:35 12/17/16 05:28 12/18/16 01:48 Lisy Cells 1+ Differential Total Cells Counted 100 Neutrophils % (Manual) 87 % Band Neutrophils % 1 % Lymphocytes % 4 % Monocytes % 4 % Neutrophils # (Manual) 8.4 TH/MM3 Metamyelocytes 1 % Myelocytes 3 % Red Cell Morphology Comment NORMAL Platelet Estimate NORMAL Platelet Morphology Comment NORMAL Test 12/23/16 07:33 01/04/17 14:07 01/26/17 07:40 01/30/17 08:50 Polychromasia 2.1 % Prothrombin Time 10.7 SEC Prothromb Time International Ratio 1.0 RATIO Activated Partial Thromboplast Time 21.7 SEC Neutrophils (%) (Auto) 44.2 % Lymphocytes (%) (Auto) 27.8 % Monocytes (%) (Auto) 17.1 % Eosinophils (%) (Auto) 9.9 % Basophils (%) (Auto) 1.0 % Neutrophils # (Auto) 3.0 TH/MM3 Lymphocytes # (Auto) 1.9 TH/MM3 Monocytes # (Auto) 1.2 TH/MM3 Eosinophils # (Auto) 0.7 TH/MM3 Basophils # (Auto) 0.1 TH/MM3 CBC Comment DIFF FINAL Differential Comment Blood Urea Nitrogen 54 MG/DL 49 MG/DL Creatinine 6.37 MG/DL 6.43 MG/DL Random Glucose 133 MG/DL 137 MG/DL Total Protein 8.1 GM/DL Albumin 3.6 GM/DL Calcium Level 10.0 MG/DL 9.8 MG/DL Phosphorus Level 3.0 MG/DL 3.1 MG/DL Magnesium Level 2.6 MG/DL 2.6 MG/DL Alkaline Phosphatase 91 U/L Aspartate Amino Transf (AST/SGOT) 12 U/L Alanine Aminotransferase (ALT/SGPT) 10 U/L Total Bilirubin 0.4 MG/DL Sodium Level 136 MEQ/L 139 MEQ/L Potassium Level 4.3 MEQ/L 3.8 MEQ/L Chloride Level 98 MEQ/L 100 MEQ/L Carbon Dioxide Level 30.6 MEQ/L 30.7 MEQ/L White Blood Count 4.3 TH/MM3 Red Blood Count 3.62 MIL/MM3 Hemoglobin 10.0 GM/DL Hematocrit 31.4 % Mean Corpuscular Volume 86.6 FL Mean Corpuscular Hemoglobin 27.5 PG Mean Corpuscular Hemoglobin Concent 31.7 % Red Cell Distribution Width 15.4 % Platelet Count 233 TH/MM3 Mean Platelet Volume 8.8 FL Anion Gap 8 MEQ/L Estimat Glomerular Filtration Rate 9 ML/MIN Hemoglobin A1c 6.7 % Objective Remarks GENERAL: This is a well-nourished, well-developed patient, in no apparent distress. SKIN: Warm and dry. HEENT: Normocephalic. Pupils equal round and reactive. Nose without bleeding. Airway patent. NECK: Trachea midline. No JVD. Supple. CARDIOVASCULAR: Regular rate and rhythm without murmurs, gallops, or rubs. Rt SC Permacath. RESPIRATORY: Diminished bases. No wheezes, rales, or rhonchi. GASTROINTESTINAL: Abdomen soft, nondistended. Bowel Sounds hypoactive. Tenderness to palpate lower quadrant. MUSCULOSKELETAL: Extremities without clubbing, cyanosis, facial edema. NEUROLOGICAL: Lethargic/ drowsy. Oriented to place, person. Moves all extremities weakly. Normal speech. Medications and IVs Current Medications Medications (Trade) Dose Ordered Sig/Abby Route Start Time Stop Time Status Last Admin (D50w (Vial) Inj) 25 ml UNSCH PRN IV PUSH 12/07/16 00:45 (Zofran Inj) 4 mg Q6H PRN IV 12/07/16 00:45 (NS Flush) DAILY IVF 12/07/16 15:30 02/04/17 09:35 (NS Flush) UNSCH PRN IVF 12/07/16 15:30 (Peridex 0.12% Liq) 15 ml BID@08,20 MT 12/07/16 20:00 02/05/17 08:00 (NS Flush) 2 ml UNSCH PRN IV FLUSH 12/07/16 15:30 12/12/16 11:32 (NS Flush) 2 ml BID IV FLUSH 12/07/16 21:00 02/07/17 09:00 (Tylenol) 650 mg Q6H PRN PO 12/07/16 15:30 01/30/17 12:24 (Tears Naturale Opth Soln) 1 drop TID EACH EYE 12/07/16 18:00 02/07/17 09:55 Miscellaneous Information 1 Q361D XX 12/07/16 15:30 (Chlorhexidine 2% Cloth) 3 pack Taper DAILY@04 TOP 12/08/16 04:00 12/04/17 03:59 01/01/17 03:31 (Chlorhexidine 2% Cloth) 3 pack UNSCH PRN TOP 12/07/16 15:30 (Milk Of Magnesia Liq) 30 ml Q12H PRN PO 12/07/16 15:30 01/18/17 15:48 (Senokot) 17.2 mg Q12H PRN PO 12/07/16 15:30 01/08/17 22:36 (Aspirin Chew) 81 mg DAILY CHEW 12/08/16 12:00 02/07/17 09:53 (Trandate Inj) 20 mg Q2H PRN IV 12/10/16 00:15 12/14/16 08:05 (Coreg) 6.25 mg Q12HR PO 12/10/16 10:00 02/07/17 09:54 (Phoslo) 1,334 mg TID PO 12/10/16 13:00 02/07/17 09:54 (Rocaltrol) 0.5 mcg DAILY PO 12/10/16 12:45 Future Hold 01/23/17 12:52 (Symbicort 160-4.5 Inh) 1 puff Q12HR INH 12/11/16 12:00 02/07/17 09:55 (Spiriva Inh) 18 mcg DAILY INH 12/11/16 12:00 02/07/17 09:55 (Norvasc) 10 mg DAILY PO 12/11/16 15:15 02/07/17 09:54 (Apresoline Inj) 20 mg Q4H PRN IV PUSH 12/11/16 15:15 12/18/16 04:26 (Catapres) 0.3 mg Q8H PO 12/12/16 08:00 02/07/17 08:00 Sodium Chloride 1,000 ml @ 0 mls/hr Q0M PRN IV 12/12/16 12:11 02/06/17 11:30 (Heparin Inj) 8,000 units UNSCH PRN IVF 12/12/16 12:15 Future hold 01/06/17 10:58 Sodium Chloride 1,000 ml @ 200 mls/hr Q5H PRN IV 12/12/16 12:11 Sodium Chloride 1,000 ml @ 0 mls/hr Q0M PRN IV 12/12/16 12:11 12/12/16 17:04 (Mannitol Inj) 12.5 gm UNSCH PRN IV 12/12/16 12:15 (Albumin 25% Inj) 25 gm UNSCH PRN IV 12/12/16 12:15 02/06/17 11:30 (NS Flush) 5 ml UNSCH PRN IV FLUSH 12/12/16 12:15 12/26/16 10:34 (Heparin Inj) UNSCH PRN .XX 12/12/16 12:15 02/06/17 11:30 (Gentamicin (Dialysis) Inj) 20 mg UNSCH PRN IV 12/12/16 12:15 02/06/17 11:30 (Zofran Inj) 4 mg UNSCH PRN IV 12/12/16 12:15 (Benadryl) 25 mg UNSCH PRN PO 12/12/16 12:15 02/06/17 06:14 (Nitrostat Sl) 0.4 mg UNSCH PRN SL 12/12/16 12:15 (Catapres) 0.1 mg UNSCH PRN PO 12/12/16 12:15 12/24/16 18:49 (Epogen Inj) 10,000 units UNSCH PRN IV 12/12/16 12:15 02/06/17 11:30 (Gelfoam 12 Mm/7 Mm Top) 1 foam UNSCH PRN TOP 12/12/16 12:15 (Apresoline) 50 mg Q8HR PO 12/26/16 14:00 02/07/17 06:16 (NS Flush) UNSCH PRN IVF 01/03/17 16:15 (Heparin Inj) UNSCH PRN IV FLUSH 01/03/17 16:15 (Heparin Inj) 5,000 units Q12HR SQ 01/07/17 09:00 Future hold 02/07/17 09:56 (Mucinex Er) 600 mg BID PO 01/12/17 10:30 02/07/17 09:54 (Cepacol Extra Ha (Sugar Free)) 1 lozenge Q2HR PRN BUCCAL 01/13/17 13:00 (Flomax) 0.4 mg HS PO 01/14/17 21:00 02/06/17 21:40 (Fleets Enema (Adult)) 133 ml UNSCH PRN RECTAL 01/18/17 18:30 01/22/17 11:57 (NovoLIN R SUPPLEMENTAL SCALE) 1 ACHS SQ 01/19/17 12:00 02/06/17 21:00 (Narcan Inj) 0.4 mg UNSCH PRN IV PUSH 01/21/17 13:00 (Dulcolax Supp) 10 mg DAILY PRN RECTAL 01/21/17 13:00 01/30/17 17:49 (Lactulose Liq) 30 ml DAILY PRN PO 01/21/17 13:00 01/29/17 15:57 (Sara-Colace) 1 tab BID PO 01/21/17 21:00 02/20/17 20:59 02/06/17 21:40 (Miralax) 17 gm DAILY PO 01/24/17 09:00 02/05/17 08:41 (Duoneb Neb) 1 ampule Q4HR NEB PRN NEB 01/28/17 16:00 02/06/17 16:56 (Levemir Inj) 39 units HS SQ 02/04/17 21:00 02/06/17 21:40 (NovoLOG INJ) 9 units TIDAC SQ 02/04/17 17:00 02/07/17 10:01 (Percocet 5-325 Mg) 1 tab Q4H PRN PO 02/05/17 13:00 02/07/17 09:54 A/P Assessment and Plan Mr. Mehta is a 66-year-old male with medical history significant for hypertension and diabetes and CVA who presented to the hospital with a chief complaint of shortness of breath and chest pain. The patient was diagnosed with NSTEMI. Echo was performed which was concerning for thrombus, but study was limited and a repeat was suggested. He has history of chronic kidney disease but worsening of his creatinine was noted. He was seen and evaluated by nephrology who started the patient on hemodialysis. CKD stage IV with GFR 8 Acute renal failure progressing to ESRD - nephrology on board, started on hemodialysis TTHSa - PermaCath placed. Vascular surgery unable to find adequate vein for AVF. - Kidney biopsy on 01/03/2017 --> diffuse and nodular diabetic glomerulosclerosis, segmental and global glomerular sclerosis, interstitial fibrosis and tubular atrophy severe. - Will need HD in outpatient. Awaiting HD set up in outpatient. S/P acute respiratory failure secondary to bilateral lower lobe pneumonias/ community acquired - resolved continue bronchodilator, Mucolytic, and incentive spirometry. COPD - Continue Symbicort and Spiriva - Continue albuterol neb. - Not on exacerbation. NSTEMI Hypertension - Echo performed December 07 showed distinct regional wall abnormalities with a possible clot in the apex. - echo with Definity contrast did not appear to show any clots in LV. - Cardiology was consulted, stable from a cardiac standpoint and recommended continued aggressive risk factor modification - ASA 81 mg daily. Coreg 6.25 mg BID. Norvasc 10 mg daily. Clonidine to 0.3 mg po TID and hydralazine 50 mg by mouth daily 8 hour Diabetes mellitus, with hyperglycemia - Continue Levemir increased to 39 units QHS and sliding scale, also pre meal to 9 units. - HgA1C 6.7 - Improving. Better control BPH - continue Tamsulosin. Stable. Deconditioning: PT recommends SNF, generalized weakness likely due to prolonged hospitalization and multiple medical conditions as above. 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 Constipation, Abdominal pain - Pericolace BID - add Miralax daily, add bisacodyl - monitor for BM Heparin SQ for DVT prophylaxis. No changes to anterior assessment . Discharge Planning Not yet found hemodialysis as outpatient. Kamaljit Urias MD Feb 07, 2017 10:18
--- NOTE | 2017-02-07 10:56 | HHI.NPPN ---
Subjective History of Present Illness 66-year-old male with past medical history of hypertension, diabetes mellitus, history of cerebrovascular accident with left-sided weakness, hyperlipidemia, bronchial asthma, chronic kidney disease who was admitted because of shortness of breath and chest pain. I was called to see the patient because of elevated BUN and creatinine. The patient was diagnosed here with non-ST elevation MO. The patient has history of chronic kidney disease. Additional Remarks Patient is alert, with nasal cannula, has mild SOB. Objective Data Data Vital Signs Date Time Temp Pulse Resp B/P (MAP) Pulse Ox O2 Delivery O2 Flow Rate FiO2 02/07/17 04:00 Nasal Cannula 2.00 02/07/17 04:00 97.6 76 16 114/61 (78) 99 02/07/17 00:00 Nasal Cannula 2.00 02/07/17 00:00 98.0 82 16 119/58 (78) 100 02/06/17 20:00 Room Air 02/06/17 20:00 97.6 84 16 120/71 (87) 97 02/06/17 16:59 95 02/06/17 16:00 97.2 97 20 127/70 (89) 98 Physical Exam General Appearance: No Acute Distress, Comfortable Eyes Eye Exam: Pupils Equal Throat Throat Exam: Oral Mucosa [place] & Moist Neck Neck Exam: Neck Supple Pulmonary Resp Exam: No Distress, Rhonchi, Decreased Bases, Diminished Breath Sounds Cardiology CV Exam: Regular, Normal Sinus Rhythm Gastrointestinal/Abdomen GI Exam: Soft, Non-Tender, Bowel Sounds Present Extremeties Extremities Exam: Moderate Edema Neurologic Neuro Exam: Alert, Awake Psychiatric Psych Exam: Appropriate Responses Assessment/Plan Assessment Summary: WILLIE/Acute Renal Failure, CHF, CKD Stage IV Problem List: (1) NSTEMI (non-ST elevated myocardial infarction) ICD Codes: I21.4 - Non-ST elevation (NSTEMI) myocardial infarction Status: Resolved (2) Diabetes mellitus ICD Codes: E11.9 - Diabetes mellitus Status: Chronic (3) Asthma ICD Codes: J45.909 - Asthma Status: Chronic (4) Shortness of breath ICD Codes: R06.02 - Shortness of breath Status: Acute (5) Leg edema ICD Codes: R60.0 - Leg edema Status: Acute (6) Hypertension ICD Codes: I10 - Hypertension Status: Chronic Plan Patient has been non oliguric, Creatinine is still elevated. Has proteinuria, serology negative. Added Phoslo as Po4 is elevated and calcitriol as Calcium is low. BP is better. Follow urine out put and watch for any renal recovery. Got the PermCath , has poor flow from Vascath. The Kidney Biopsy showing Diabetic and Hypertensive renal disease. Case management notes seen. AVF cannot be done as per vascular due to poor veins. HD to continue 3 times a week. Continue HD as schedule. Yoga Coordinator arranging transitional HD. HD done yesterday, follow Po4 level as was normal before. Problem Qualifiers (1) Diabetes mellitus: Qualified Codes: E11.22 - Type 2 diabetes mellitus with diabetic chronic kidney disease; N18.4 - Chronic kidney disease, stage 4 (severe); Z79.4 - [facility] (current) use of insulin (2) Hypertension: Qualified Codes: I10 - Essential (primary) hypertension Zoey Carbone MD Feb 07, 2017 10:56
[2017-02-07] MEDS: TAMSULOSIN HCL 0.4 MG CAP PO SCH (21:44)
[2017-02-07] MEDS: INSULIN DETEMIR 100 UNITS/ML VIAL SQ SCH (21:59)
[2017-02-08] MEDS: CHLORHEXIDINE GLUCONATE 2 % 1 PACK (2 CLOTHS) TOP SCH (04:00)
[2017-02-08 04:07] VITALS: BP 95/65; PULSE 62; RESP 16; TEMP 97.4; O2SAT 98
[2017-02-08] MEDS: hydrALAZINE HCL 50 MG TAB PO SCH ×3 (05:44→21:49)
[2017-02-08 08:00] VITALS: BP 115/67; PULSE 73; RESP 20; TEMP 98.1; O2SAT 98
[2017-02-08] MEDS: INSULIN NovoLIN REGULAR SUPPLEMENTAL SCALE SQ SCH ×4 (08:00→22:02)
[2017-02-08] MEDS: cloNIDine HCL 0.3 MG TAB PO SCH ×2 (08:00→18:23)
[2017-02-08 08:20] LABS: HEMATOCRIT 36.3 % (39.0-51.0); MEAN CELL VOLUME 83.5 FL (80.0-100.0); MEAN CORPUSCULAR HEMOGLOBIN 26.7 PG (27.0-34.0); PLATELET COUNT 274 TH/MM3 (150-450); RED BLOOD COUNT 4.35 MIL/MM3 (4.50-5.90); RED CELL DISTRIBUTION WIDTH 16.1 % (11.6-17.2); REVIEW FLAG FINAL; WHITE BLOOD COUNT 6.6 TH/MM3 (4.0-11.0)
[2017-02-08] MEDS: CALCIUM ACETATE 667 MG CAP PO SCH ×3 (08:44→18:23)
[2017-02-08] MEDS: ASPIRIN 81 MG CHEW TAB CHEW SCH (08:44)
[2017-02-08] MEDS: guaiFENesin E.R. 600 MG TAB PO SCH ×2 (08:44→21:49)
[2017-02-08] MEDS: INSULIN ASPART 1,000 UNITS/10 ML VIAL SQ SCH ×3 (08:45→17:00)
[2017-02-08] MEDS: HEPARIN SODIUM - SQ 10,000 UNITS/ML VIAL SQ SCH ×2 (08:45→21:50)
[2017-02-08 08:48] LABS: BICARBONATE 26.2 MEQ/L (21.0-32.0); POTASSIUM 4.2 MEQ/L (3.5-5.1)
[2017-02-08] MEDS: BUDESONIDE-FORMOTEROL 160/4.5 MCG INHALER INH SCH ×2 (08:48→21:56)
[2017-02-08] MEDS: TIOTROPIUM BROMIDE 18 MCG INH INH SCH (08:48)
[2017-02-08] MEDS: SODIUM CHLORIDE 0.9% FLUSH 10 ML FLUSH IVF SCH (08:51)
[2017-02-08] MEDS: ARTIFICIAL TEARS OPTH SOLN 15 ML BTL EACH EYE SCH ×3 (08:51→17:16)
[2017-02-08] MEDS: SODIUM CHLORIDE 0.9% FLUSH 10 ML FLUSH IV FLUSH SCH ×2 (08:51→21:50)
[2017-02-08] MEDS: POLYETHYLENE GLYCOL 17 GM PKG PO SCH (08:53)
[2017-02-08] MEDS: DOCUSATE SODIUM 50 MG/SENNA 8.6 MG TAB PO SCH ×2 (08:53→21:49)
[2017-02-08] MEDS: CARVEDILOL 6.25 MG TAB PO SCH ×2 (09:00→21:49)
[2017-02-08] MEDS: GENTAMICIN SULFATE (DIALYSIS USE ONLY) 20 MG/2 ML VIAL IV PRN (12:31)
[2017-02-08] MEDS: EPOETIN ALFA 10,000 UNITS/ML VIAL IV PRN (12:31)
--- NOTE | 2017-02-08 13:11 | HHI.PR ---
Subjective Remarks Follow-up visit acute renal failure going on end-stage renal disease on hemodialysis, COPD, NSTEMI. Stable in his bedroom, continue awaiting for Placement, nurse states he may be going this next Sunday to home and comes back to this facility for Hemodialysis. Objective Vital Signs Date Time Temp Pulse Resp B/P (MAP) Pulse Ox O2 Delivery O2 Flow Rate FiO2 02/08/17 08:00 98.1 73 20 115/67 (83) 98 02/08/17 04:07 97.4 62 16 95/65 (75) 98 02/08/17 00:00 Nasal Cannula 2.00 02/07/17 23:10 97.6 69 16 129/61 (83) 100 02/07/17 21:00 Nasal Cannula 2.00 02/07/17 20:50 97.4 62 16 108/65 (79) 97 02/07/17 16:00 97.5 77 20 123/58 (79) 97 I/O 02/07/17 02/07/17 02/07/17 02/08/17 02/08/17 02/08/17 07:00 15:00 23:00 07:00 15:00 23:00 Intake Total 0 ml 120 ml Output Total 0 ml Balance 0 ml 120 ml Intake Oral 0 ml 120 ml Output Urine Total 0 ml # Voids 0 # Bowel Movements 0 0 Result Diagram: 02/08/17 0749 02/08/17 0749 Imaging Last Impressions Venous Access Device Injection 01/30/17 0000 Signed Impressions: Service Date/Time: Monday, January 30, 2017 00:00 - CONCLUSION: Right IJ PermCath is in excellent position and appears to be functioning appropriately. Filiberto Rodarte MD Chest X-Ray 01/28/17 0000 Signed Impressions: Service Date/Time: Saturday, January 28, 2017 14:00 - CONCLUSION: Normal examination. Right-sided dual-lumen catheter in good position. Yoni Bay MD Carotid Artery Ultrasound 01/10/17 0000 Signed Impressions: Service Date/Time: Tuesday, January 10, 2017 12:25 - CONCLUSION: Negative examination for a hemodynamically significant carotid stenosis. Marek Burnett MD FACR Upper Extremity Ultrasound 01/05/17 0000 Signed Impressions: Service Date/Time: Thursday, January 05, 2017 18:56 - CONCLUSION: Normal examination. Ji Martinez MD Renal Biopsy CT 01/03/17 0000 Signed Impressions: Service Date/Time: Tuesday, January 03, 2017 13:28 - CONCLUSION: Uncomplicated CT guided biopsy. Ji Cedillo MD Central Venous Line 01/03/17 0000 Signed Impressions: Service Date/Time: Tuesday, January 03, 2017 00:00 - CONCLUSION: Uncomplicated catheter removal. Filiberto Rodarte MD Catheter Placement X-Ray 01/03/17 0000 Signed Impressions: Service Date/Time: Tuesday, January 03, 2017 14:27 - CONCLUSION: Uncomplicated PermaCath placement as above. Filiberto Rodarte MD Chest CT 12/08/16 0000 Signed Impressions: Service Date/Time: Thursday, December 08, 2016 14:02 - CONCLUSION: 1. Bilateral lower lobe consolidating airspace disease. 2. Small to moderate bilateral pleural effusions; larger on the left. 3. Cardiomegaly. 4. Endotracheal and nasogastric tubes in good position. Tutu Christianson MD Renal Ultrasound 12/07/16 0000 Signed Impressions: Service Date/Time: November 07:54 - CONCLUSION: Unremarkable and stable bilateral renal ultrasound. No evidence of hydronephrosis. Baron Medrano MD Procedures Hemodialysis Other Results Laboratory Tests Test 12/06/16 23:25 12/07/16 04:02 12/07/16 06:00 12/07/16 09:05 Total Creatine Kinase 607 U/L Creatine Kinase MB 9.8 NG/ML Creatine Kinase MB % 1.6 % Serum Osmolality 320 MOSM/KG Nasal Screen MRSA (PCR) MRSA NOT DETECTED Urine Color YELLOW Urine Turbidity CLEAR Urine pH 6.0 Urine Specific [place] 1.014 Urine Protein 300 mg/dL Urine Glucose (UA) 70 mg/dL Urine Ketones NEG mg/dL Urine Occult Blood LARGE Urine Nitrite NEG Urine Bilirubin NEG Urine Urobilinogen LESS THAN 2.0 MG/DL Urine Leukocyte Esterase NEG Urine RBC 91 /hpf Urine WBC 4 /hpf Urine Bacteria OCC /hpf Urine Hyaline Casts 2 /lpf Microscopic Urinalysis Comment CATH Urine Eosinophils NONE SEEN /HPF Test 12/07/16 17:30 12/08/16 03:30 12/08/16 04:20 12/09/16 08:45 Urine Random Creatinine 209.8 MG/DL Urine Random Sodium 16 MEQ/L Fibrinogen 747 mg/dL Lactic Acid Level 1.5 mmol/L Blood Urea Nitrogen 69 MG/DL Creatinine 8.09 MG/DL Random Glucose 253 MG/DL Total Protein 6.6 GM/DL Albumin 2.3 GM/DL Calcium Level 8.5 MG/DL Phosphorus Level 5.6 MG/DL Magnesium Level 1.8 MG/DL Alkaline Phosphatase 88 U/L Aspartate Amino Transf (AST/SGOT) 14 U/L Alanine Aminotransferase (ALT/SGPT) 18 U/L Total Bilirubin 0.3 MG/DL Direct Bilirubin 0.1 MG/DL Sodium Level 140 MEQ/L Potassium Level 4.3 MEQ/L Chloride Level 106 MEQ/L Carbon Dioxide Level 16.9 MEQ/L Indirect Bilirubin 0.2 MG/DL Ammonia LESS THAN 10 MCMOL/L Troponin I 2.86 NG/ML Lipase 114 U/L Thyroid Stimulating Hormone 3rd Gen 1.080 uIU/ML B-Type Natriuretic Peptide 320 PG/ML Blood Gas Puncture Site RT RADIAL Blood Gas Patient Temperature 98.6 Blood Gas HCO3 22 mmol/L Blood Gas Base Excess -1.9 mmol/L Blood Gas Oxygen Saturation 92 % Arterial Blood pH 7.41 Arterial Blood Partial Pressure CO2 35 mmHg Arterial Blood Partial Pressure O2 82 mmHg Arterial Blood Oxygen Content 11.3 Vol % Arterial Blood Carboxyhemoglobin 1.2 % Arterial Blood Methemoglobin 2.1 % Blood Gas Hemoglobin 8.6 G/DL Oxygen Delivery Device VENTILATOR Blood Gas Ventilator Setting CPAP+5/PS5 Blood Gas Inspired Oxygen 35 % Test 12/10/16 04:45 12/11/16 12:00 12/12/16 05:05 12/12/16 12:36 Anti-Nuclear Antibody Screen NEG Anti-Proteinase 3 (c-ANCA) LESS THAN 1.0 AI Anti-Myeloperoxidase Ab (p-ANCA) LESS THAN 1.0 AI Complement C3 114 MG/DL Complement C4 41 MG/DL Urine Total Volume 24 Hours 3850 ML Urine Total Protein 24 Hour 6191 MG/24HR Nucleated Red Blood Cells 1 /100 WBC Ovalocytes 1+ Protein Corrected Calcium 7.6 MG/DL Hepatitis A IgM Antibody NEGATIVE Hepatitis B Surface Antigen NEGATIVE Hepatitis B Core IgM Antibody NEGATIVE Hepatitis C Antibody NEGATIVE Test 12/13/16 04:30 12/14/16 05:35 12/17/16 05:28 12/18/16 01:48 Lisy Cells 1+ Differential Total Cells Counted 100 Neutrophils % (Manual) 87 % Band Neutrophils % 1 % Lymphocytes % 4 % Monocytes % 4 % Neutrophils # (Manual) 8.4 TH/MM3 Metamyelocytes 1 % Myelocytes 3 % Red Cell Morphology Comment NORMAL Platelet Estimate NORMAL Platelet Morphology Comment NORMAL Test 12/23/16 07:33 01/04/17 14:07 01/26/17 07:40 01/30/17 08:50 Polychromasia 2.1 % Prothrombin Time 10.7 SEC Prothromb Time International Ratio 1.0 RATIO Activated Partial Thromboplast Time 21.7 SEC Neutrophils (%) (Auto) 44.2 % Lymphocytes (%) (Auto) 27.8 % Monocytes (%) (Auto) 17.1 % Eosinophils (%) (Auto) 9.9 % Basophils (%) (Auto) 1.0 % Neutrophils # (Auto) 3.0 TH/MM3 Lymphocytes # (Auto) 1.9 TH/MM3 Monocytes # (Auto) 1.2 TH/MM3 Eosinophils # (Auto) 0.7 TH/MM3 Basophils # (Auto) 0.1 TH/MM3 CBC Comment DIFF FINAL Differential Comment Blood Urea Nitrogen 54 MG/DL 49 MG/DL Creatinine 6.37 MG/DL 6.43 MG/DL Random Glucose 133 MG/DL 137 MG/DL Total Protein 8.1 GM/DL Albumin 3.6 GM/DL Calcium Level 10.0 MG/DL 9.8 MG/DL Phosphorus Level 3.0 MG/DL 3.1 MG/DL Magnesium Level 2.6 MG/DL 2.6 MG/DL Alkaline Phosphatase 91 U/L Aspartate Amino Transf (AST/SGOT) 12 U/L Alanine Aminotransferase (ALT/SGPT) 10 U/L Total Bilirubin 0.4 MG/DL Sodium Level 136 MEQ/L 139 MEQ/L Potassium Level 4.3 MEQ/L 3.8 MEQ/L Chloride Level 98 MEQ/L 100 MEQ/L Carbon Dioxide Level 30.6 MEQ/L 30.7 MEQ/L Hemoglobin A1c 6.7 % Test 02/08/17 07:49 White Blood Count 6.6 TH/MM3 Red Blood Count 4.35 MIL/MM3 Hemoglobin 11.6 GM/DL Hematocrit 36.3 % Mean Corpuscular Volume 83.5 FL Mean Corpuscular Hemoglobin 26.7 PG Mean Corpuscular Hemoglobin Concent 32.0 % Red Cell Distribution Width 16.1 % Platelet Count 274 TH/MM3 Mean Platelet Volume 8.6 FL Blood Urea Nitrogen 66 MG/DL Creatinine 9.17 MG/DL Random Glucose 138 MG/DL Calcium Level 11.0 MG/DL Phosphorus Level 3.5 MG/DL Sodium Level 130 MEQ/L Potassium Level 4.2 MEQ/L Chloride Level 90 MEQ/L Carbon Dioxide Level 26.2 MEQ/L Anion Gap 14 MEQ/L Estimat Glomerular Filtration Rate 6 ML/MIN Objective Remarks GENERAL: This is a well-nourished, well-developed patient, in no apparent distress. SKIN: Warm and dry. HEENT: Normocephalic. Pupils equal round and reactive. Nose without bleeding. Airway patent. NECK: Trachea midline. No JVD. Supple. CARDIOVASCULAR: Regular rate and rhythm without murmurs, gallops, or rubs. Rt SC Permacath. RESPIRATORY: Diminished bases. No wheezes, rales, or rhonchi. GASTROINTESTINAL: Abdomen soft, nondistended. Bowel Sounds hypoactive. Tenderness to palpate lower quadrant. MUSCULOSKELETAL: Extremities without clubbing, cyanosis, facial edema. NEUROLOGICAL: Lethargic/ drowsy. Oriented to place, person. Moves all extremities weakly. Normal speech. Medications and IVs Current Medications Medications (Trade) Dose Ordered Sig/Abby Route Start Time Stop Time Status Last Admin (D50w (Vial) Inj) 25 ml UNSCH PRN IV PUSH 12/07/16 00:45 (Zofran Inj) 4 mg Q6H PRN IV 12/07/16 00:45 (NS Flush) DAILY IVF 12/07/16 15:30 02/08/17 08:51 (NS Flush) UNSCH PRN IVF 12/07/16 15:30 (Peridex 0.12% Liq) 15 ml BID@08,20 MT 12/07/16 20:00 02/05/17 08:00 (NS Flush) 2 ml UNSCH PRN IV FLUSH 12/07/16 15:30 12/12/16 11:32 (NS Flush) 2 ml BID IV FLUSH 12/07/16 21:00 02/08/17 08:51 (Tylenol) 650 mg Q6H PRN PO 12/07/16 15:30 01/30/17 12:24 (Tears Naturale Opth Soln) 1 drop TID EACH EYE 12/07/16 18:00 02/08/17 08:51 Miscellaneous Information 1 Q361D XX 12/07/16 15:30 (Chlorhexidine 2% Cloth) Taper DAILY@04 TOP 12/08/16 04:00 12/04/17 03:59 01/01/17 03:31 (Chlorhexidine 2% Cloth) 3 pack UNSCH PRN TOP 12/07/16 15:30 (Milk Of Magnalvino Liq) 30 ml Q12H PRN PO 12/07/16 15:30 01/18/17 15:48 (Senokot) 17.2 mg Q12H PRN PO 12/07/16 15:30 01/08/17 22:36 (Aspirin Chew) 81 mg DAILY CHEW 12/08/16 12:00 02/08/17 08:44 (Trandate Inj) 20 mg Q2H PRN IV 12/10/16 00:15 12/14/16 08:05 (Coreg) 6.25 mg Q12HR PO 12/10/16 10:00 02/07/17 21:44 (Phoslo) 1,334 mg TID PO 12/10/16 13:00 02/08/17 08:44 (Rocaltrol) 0.5 mcg DAILY PO 12/10/16 12:45 Future Hold 01/23/17 12:52 (Symbicort 160-4.5 Inh) 1 puff Q12HR INH 12/11/16 12:00 02/08/17 08:48 (Spiriva Inh) 18 mcg DAILY INH 12/11/16 12:00 02/08/17 08:48 (Norvasc) 10 mg DAILY PO 12/11/16 15:15 02/07/17 09:54 (Apresoline Inj) 20 mg Q4H PRN IV PUSH 12/11/16 15:15 12/18/16 04:26 (Catapres) 0.3 mg Q8H PO 12/12/16 08:00 02/07/17 23:12 Sodium Chloride 1,000 ml @ 0 mls/hr Q0M PRN IV 12/12/16 12:11 02/06/17 11:30 (Heparin Inj) 8,000 units UNSCH PRN IVF 12/12/16 12:15 Future hold 01/06/17 10:58 Sodium Chloride 1,000 ml @ 200 mls/hr Q5H PRN IV 12/12/16 12:11 Sodium Chloride 1,000 ml @ 0 mls/hr Q0M PRN IV 12/12/16 12:11 12/12/16 17:04 (Mannitol Inj) 12.5 gm UNSCH PRN IV 12/12/16 12:15 (Albumin 25% Inj) 25 gm UNSCH PRN IV 12/12/16 12:15 02/06/17 11:30 (NS Flush) 5 ml UNSCH PRN IV FLUSH 12/12/16 12:15 12/26/16 10:34 (Heparin Inj) UNSCH PRN .XX 12/12/16 12:15 02/06/17 11:30 (Gentamicin (Dialysis) Inj) 20 mg UNSCH PRN IV 12/12/16 12:15 02/08/17 12:31 (Zofran Inj) 4 mg UNSCH PRN IV 12/12/16 12:15 (Benadryl) 25 mg UNSCH PRN PO 12/12/16 12:15 02/06/17 06:14 (Nitrostat Sl) 0.4 mg UNSCH PRN SL 12/12/16 12:15 (Catapres) 0.1 mg UNSCH PRN PO 12/12/16 12:15 12/24/16 18:49 (Epogen Inj) 10,000 units UNSCH PRN IV 12/12/16 12:15 02/08/17 12:31 (Gelfoam 12 Mm/7 Mm Top) 1 foam UNSCH PRN TOP 12/12/16 12:15 (Apresoline) 50 mg Q8HR PO 12/26/16 14:00 02/08/17 05:44 (NS Flush) UNSCH PRN IVF 01/03/17 16:15 (Heparin Inj) UNSCH PRN IV FLUSH 01/03/17 16:15 (Heparin Inj) 5,000 units Q12HR SQ 01/07/17 09:00 Future hold 02/08/17 08:45 (Mucinex Er) 600 mg BID PO 01/12/17 10:30 02/08/17 08:44 (Cepacol Extra Ha (Sugar Free)) 1 lozenge Q2HR PRN BUCCAL 01/13/17 13:00 (Flomax) 0.4 mg HS PO 01/14/17 21:00 02/07/17 21:44 (Fleets Enema (Adult)) 133 ml UNSCH PRN RECTAL 01/18/17 18:30 01/22/17 11:57 (NovoLIN R SUPPLEMENTAL SCALE) 1 ACHS SQ 01/19/17 12:00 02/06/17 21:00 (Narcan Inj) 0.4 mg UNSCH PRN IV PUSH 01/21/17 13:00 (Dulcolax Supp) 10 mg DAILY PRN RECTAL 01/21/17 13:00 01/30/17 17:49 (Lactulose Liq) 30 ml DAILY PRN PO 01/21/17 13:00 01/29/17 15:57 (Sara-Colace) 1 tab BID PO 01/21/17 21:00 02/20/17 20:59 02/08/17 08:53 (Miralax) 17 gm DAILY PO 01/24/17 09:00 02/08/17 08:53 (Duoneb Neb) 1 ampule Q4HR NEB PRN NEB 01/28/17 16:00 02/06/17 16:56 (Levemir Inj) 39 units HS SQ 02/04/17 21:00 02/07/17 21:59 (NovoLOG INJ) 9 units TIDAC SQ 02/04/17 17:00 02/08/17 08:45 (Percocet 5-325 Mg) 1 tab Q4H PRN PO 02/05/17 13:00 02/07/17 09:54 A/P Assessment and Plan Mr. Mehta is a 66-year-old male with medical history significant for hypertension and diabetes and CVA who presented to the hospital with a chief complaint of shortness of breath and chest pain. The patient was diagnosed with NSTEMI. Echo was performed which was concerning for thrombus, but study was limited and a repeat was suggested. He has history of chronic kidney disease but worsening of his creatinine was noted. He was seen and evaluated by nephrology who started the patient on hemodialysis. CKD stage IV Acute renal failure progressing to ESRD - nephrology on board, started on hemodialysis TTHSa - PermaCath placed. Vascular surgery unable to find adequate vein for AVF. - Kidney biopsy on 01/03/2017 --> diffuse and nodular diabetic glomerulosclerosis, segmental and global glomerular sclerosis, interstitial fibrosis and tubular atrophy severe. - Will need HD in outpatient. Awaiting HD set up in outpatient. S/P acute respiratory failure secondary to bilateral lower lobe pneumonias/ community acquired - resolved continue bronchodilator, Mucolytic, and incentive spirometry. COPD - Continue Symbicort and Spiriva - Continue albuterol neb. - Not on exacerbation. NSTEMI Hypertension - Echo performed December 07 showed distinct regional wall abnormalities with a possible clot in the apex. - echo with Definity contrast did not appear to show any clots in LV. - Cardiology was consulted, stable from a cardiac standpoint and recommended continued aggressive risk factor modification - ASA 81 mg daily. Coreg 6.25 mg BID. Norvasc 10 mg daily. Clonidine to 0.3 mg po TID and hydralazine 50 mg by mouth daily 8 hour Diabetes mellitus, with hyperglycemia - Continue Levemir increased to 39 units QHS and sliding scale, also pre meal to 9 units. - HgA1C 6.7 - Improving. Better control BPH - continue Tamsulosin. Stable. Deconditioning: PT recommends SNF, generalized weakness likely due to prolonged hospitalization and multiple medical conditions as above. 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 Constipation, Abdominal pain - Pericolace BID - add Miralax daily, add bisacodyl - monitor for BM Heparin SQ for DVT prophylaxis. No changes to anterior assessment . Discharge Planning Discussed with nurse may be discharge tomorrow to home and will continue HD here in this facility. Kamaljit Urias MD Feb 08, 2017 13:11
--- NOTE | 2017-02-08 15:49 | HHI.NPPN ---
Subjective History of Present Illness 66-year-old male with past medical history of hypertension, diabetes mellitus, history of cerebrovascular accident with left-sided weakness, hyperlipidemia, bronchial asthma, chronic kidney disease who was admitted because of shortness of breath and chest pain. I was called to see the patient because of elevated BUN and creatinine. The patient was diagnosed here with non-ST elevation [place]. The patient has history of chronic kidney disease. Additional Remarks Patient is alert, with nasal cannula, seen in AM during HD. Objective Data Data 02/08/17 02/09/17 19:00 07:00 Output Total 1000 ml Balance -1000 ml Hemodialysis 1000 ml Vital Signs Date Time Temp Pulse Resp B/P (MAP) Pulse Ox O2 Delivery O2 Flow Rate FiO2 02/08/17 08:00 96 Nasal Cannula 2.00 21 02/08/17 08:00 98.1 73 20 115/67 (83) 98 02/08/17 04:07 97.4 62 16 95/65 (75) 98 02/08/17 00:00 Nasal Cannula 2.00 02/07/17 23:10 97.6 69 16 129/61 (83) 100 02/07/17 21:00 Nasal Cannula 2.00 02/07/17 20:50 97.4 62 16 108/65 (79) 97 02/07/17 16:00 97.5 77 20 123/58 (79) 97 -: 02/08/17 0749 02/08/17 0749 Physical Exam General Appearance: No Acute Distress, Comfortable Eyes Eye Exam: Pupils Equal Throat Throat Exam: Oral Mucosa [place] & Moist Neck Neck Exam: Neck Supple Pulmonary Resp Exam: No Distress, Rhonchi, Decreased Bases, Diminished Breath Sounds Cardiology CV Exam: Regular, Normal Sinus Rhythm Gastrointestinal/Abdomen GI Exam: Soft, Non-Tender, Bowel Sounds Present Extremeties Extremities Exam: Moderate Edema Neurologic Neuro Exam: Alert, Awake Psychiatric Psych Exam: Appropriate Responses Assessment/Plan Assessment Summary: WILLIE/Acute Renal Failure, CHF, CKD Stage IV Problem List: (1) NSTEMI (non-ST elevated myocardial infarction) ICD Codes: I21.4 - Non-ST elevation (NSTEMI) myocardial infarction Status: Resolved (2) Diabetes mellitus ICD Codes: E11.9 - Diabetes mellitus Status: Chronic (3) Asthma ICD Codes: J45.909 - Asthma Status: Chronic (4) Shortness of breath ICD Codes: R06.02 - Shortness of breath Status: Acute (5) Leg edema ICD Codes: R60.0 - Leg edema Status: Acute (6) Hypertension ICD Codes: I10 - Hypertension Status: Chronic Plan Patient has been non oliguric, Creatinine is still elevated. Has proteinuria, serology negative. Added Phoslo as Po4 is elevated and calcitriol as Calcium is low. BP is better. Follow urine out put and watch for any renal recovery. Got the PermCath , has poor flow from Vascath. The Kidney Biopsy showing Diabetic and Hypertensive renal disease. Case management notes seen. AVF cannot be done as per vascular due to poor veins. HD to continue 3 times a week. Continue HD as schedule. Kiln Puller arranging transitional HD. HD now, Po4 is normal, calcium is 11.0. Not on any Calcium , possibly due to bed ridden status. Will do HD with low Calcium Bath. Problem Qualifiers (1) Diabetes mellitus: Qualified Codes: E11.22 - Type 2 diabetes mellitus with diabetic chronic kidney disease; N18.4 - Chronic kidney disease, stage 4 (severe); Z79.4 - group home (current) use of insulin (2) Hypertension: Qualified Codes: I10 - Essential (primary) hypertension Zoey Cabrone MD Feb 08, 2017 15:48
[2017-02-08 16:00] VITALS: BP 106/56; PULSE 92; RESP 20; TEMP 99.1; O2SAT 99
[2017-02-08] MEDS: oxyCODONE/ACETAMINOPHEN 5 MG/325 MG TAB PO PRN (18:23)
[2017-02-08] MEDS: CHLORHEXIDINE 0.12% (ORAL KIT) 15 ML CUP MT SCH (20:00)
[2017-02-08 20:50] VITALS: BP 123/69; PULSE 97; RESP 18; TEMP 98.6; O2SAT 96
[2017-02-08] MEDS: TAMSULOSIN HCL 0.4 MG CAP PO SCH (21:49)
[2017-02-08] MEDS: INSULIN DETEMIR 100 UNITS/ML VIAL SQ SCH (22:02)
[2017-02-09 00:03] VITALS: BP 101/62; PULSE 92; RESP 18; TEMP 98.9; O2SAT 97
[2017-02-09] MEDS: cloNIDine HCL 0.3 MG TAB PO SCH ×2 (00:12→08:00)
[2017-02-09] MEDS: CHLORHEXIDINE GLUCONATE 2 % 1 PACK (2 CLOTHS) TOP SCH (00:12)
[2017-02-09 04:57] VITALS: BP 158/92; PULSE 95; RESP 18; TEMP 97.8; O2SAT 99
[2017-02-09] MEDS: hydrALAZINE HCL 50 MG TAB PO SCH (05:05)
[2017-02-09] MEDS: LACTULOSE SYRUP 20 GM/30 ML CUP PO PRN (05:05)
[2017-02-09 08:00] VITALS: BP 105/67; PULSE 94; RESP 20; TEMP 98.1; O2SAT 97
[2017-02-09] MEDS: CHLORHEXIDINE 0.12% (ORAL KIT) 15 ML CUP MT SCH (08:00)
[2017-02-09] MEDS: INSULIN NovoLIN REGULAR SUPPLEMENTAL SCALE SQ SCH ×2 (08:00→12:00)
[2017-02-09] MEDS: POLYETHYLENE GLYCOL 17 GM PKG PO SCH (09:00)
[2017-02-09] MEDS: TIOTROPIUM BROMIDE 18 MCG INH INH SCH (09:00)
[2017-02-09] MEDS: SODIUM CHLORIDE 0.9% FLUSH 10 ML FLUSH IV FLUSH SCH (09:22)
[2017-02-09] MEDS: DOCUSATE SODIUM 50 MG/SENNA 8.6 MG TAB PO SCH (09:23)
[2017-02-09] MEDS: CARVEDILOL 6.25 MG TAB PO SCH (09:23)
[2017-02-09] MEDS: CALCIUM ACETATE 667 MG CAP PO SCH (09:23)
[2017-02-09] MEDS: HEPARIN SODIUM - SQ 10,000 UNITS/ML VIAL SQ SCH (09:23)
[2017-02-09] MEDS: guaiFENesin E.R. 600 MG TAB PO SCH (09:23)
[2017-02-09] MEDS: ASPIRIN 81 MG CHEW TAB CHEW SCH (09:23)
[2017-02-09] MEDS: BUDESONIDE-FORMOTEROL 160/4.5 MCG INHALER INH SCH (09:24)
[2017-02-09] MEDS: ARTIFICIAL TEARS OPTH SOLN 15 ML BTL EACH EYE SCH (09:24)
[2017-02-09] MEDS: INSULIN ASPART 1,000 UNITS/10 ML VIAL SQ SCH ×2 (09:44→12:00)
--- NOTE | 2017-02-09 10:39 | HHI.NPPN ---
Subjective History of Present Illness 66-year-old male with past medical history of hypertension, diabetes mellitus, history of cerebrovascular accident with left-sided weakness, hyperlipidemia, bronchial asthma, chronic kidney disease who was admitted because of shortness of breath and chest pain. I was called to see the patient because of elevated BUN and creatinine. The patient was diagnosed here with non-ST elevation [place]. The patient has history of chronic kidney disease. Additional Remarks Patient is alert, with nasal cannula, seen in AM during HD. Objective Data Data Vital Signs Date Time Temp Pulse Resp B/P (MAP) Pulse Ox O2 Delivery O2 Flow Rate FiO2 02/09/17 04:57 97.8 95 18 158/92 (114) 99 02/09/17 04:00 Nasal Cannula 2.00 02/09/17 00:03 98.9 92 18 101/62 (75) 97 02/09/17 00:00 Nasal Cannula 2.00 02/08/17 20:50 98.6 97 18 123/69 (87) 96 02/08/17 20:00 Nasal Cannula 2.00 02/08/17 16:00 99.1 92 20 106/56 (73) 99 -: 02/08/17 0749 02/08/17 0749 Physical Exam General Appearance: No Acute Distress, Comfortable Eyes Eye Exam: Pupils Equal Throat Throat Exam: Oral Mucosa [place] & Moist Neck Neck Exam: Neck Supple Pulmonary Resp Exam: No Distress, Rhonchi, Decreased Bases, Diminished Breath Sounds Cardiology CV Exam: Regular, Normal Sinus Rhythm Gastrointestinal/Abdomen GI Exam: Soft, Non-Tender, Bowel Sounds Present Extremeties Extremities Exam: Moderate Edema Neurologic Neuro Exam: Alert, Awake Psychiatric Psych Exam: Appropriate Responses Assessment/Plan Assessment Summary: WILLIE/Acute Renal Failure, CHF, CKD Stage IV Problem List: (1) NSTEMI (non-ST elevated myocardial infarction) ICD Codes: I21.4 - Non-ST elevation (NSTEMI) myocardial infarction Status: Resolved (2) Diabetes mellitus ICD Codes: E11.9 - Diabetes mellitus Status: Chronic (3) Asthma ICD Codes: J45.909 - Asthma Status: Chronic (4) Shortness of breath ICD Codes: R06.02 - Shortness of breath Status: Acute (5) Leg edema ICD Codes: R60.0 - Leg edema Status: Acute (6) Hypertension ICD Codes: I10 - Hypertension Status: Chronic Plan Patient has been non oliguric, Creatinine is still elevated. Has proteinuria, serology negative. Added Phoslo as Po4 is elevated and calcitriol as Calcium is low. BP is better. Follow urine out put and watch for any renal recovery. Got the PermCath , has poor flow from Vascath. The Kidney Biopsy showing Diabetic and Hypertensive renal disease. Case management notes seen. AVF cannot be done as per vascular due to poor veins. HD to continue 3 times a week. Continue HD as schedule. Sausage Linker arranging transitional HD. HD now, Po4 is normal, calcium is 11.0. Not on any Calcium , possibly due to bed ridden status. Will do HD with low Calcium Bath. 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
--- NOTE | 2017-02-09 10:51 | HHI.PR ---
Subjective Remarks Follow-up visit acute renal failure going on end-stage renal disease on hemodialysis, COPD, NSTEMI. Stable in his bedroom, continue awaiting for Placement, nurse states he may be going this next Sunday to home and comes back to this facility for Hemodialysis. Seen in his bedroom and discussed with patient, nurse Miss De La Cruz and Charge nurse, and Commercial Loan Underwriter the patient will continue HD in this facility but he will go home and comes back three times a week No nausea, vomit or diarrhea. Objective Vital Signs Date Time Temp Pulse Resp B/P (MAP) Pulse Ox O2 Delivery O2 Flow Rate FiO2 02/09/17 08:00 98.1 94 20 105/67 (80) 97 02/09/17 04:57 97.8 95 18 158/92 (114) 99 02/09/17 04:00 Nasal Cannula 2.00 02/09/17 00:03 98.9 92 18 101/62 (75) 97 02/09/17 00:00 Nasal Cannula 2.00 02/08/17 20:50 98.6 97 18 123/69 (87) 96 02/08/17 20:00 Nasal Cannula 2.00 02/08/17 16:00 99.1 92 20 106/56 (73) 99 I/O 02/08/17 02/08/17 02/08/17 02/09/17 02/09/17 02/09/17 07:00 15:00 23:00 07:00 15:00 23:00 Intake Total 120 ml 360 ml 120 ml Output Total 0 ml 1000 ml Balance 120 ml -1000 ml 360 ml 120 ml Intake Oral 120 ml 360 ml 120 ml Output Urine Total 0 ml Hemodialysis 1000 ml # Voids 0 1 # Bowel Movements 0 0 0 Result Diagram: 02/08/1749 02/08/1749 Imaging Last Impressions Venous Access Device Injection 01/30/17 0000 Signed Impressions: Service Date/Time: Monday, January 30, 2017 00:00 - CONCLUSION: Right IJ PermCath is in excellent position and appears to be functioning appropriately. Filiberto Rodarte MD Chest X-Ray 01/28/17 0000 Signed Impressions: Service Date/Time: Saturday, January 28, 2017 14:00 - CONCLUSION: Normal examination. Right-sided dual-lumen catheter in good position. Yoni Bay MD Carotid Artery Ultrasound 9/13/17 0000 Signed Impressions: Service Date/Time: Tuesday, January 10, 2017 12:25 - CONCLUSION: Negative examination for a hemodynamically significant carotid stenosis. Marek Burnett MD FACR Upper Extremity Ultrasound 01/05/17 0000 Signed Impressions: Service Date/Time: Thursday, January 05, 2017 18:56 - CONCLUSION: Normal examination. Ji Martinez MD Renal Biopsy CT 01/03/17 0000 Signed Impressions: Service Date/Time: Tuesday, January 03, 2017 13:28 - CONCLUSION: Uncomplicated CT guided biopsy. Ji Cedillo MD Central Venous Line 01/03/17 0000 Signed Impressions: Service Date/Time: Tuesday, January 03, 2017 00:00 - CONCLUSION: Uncomplicated catheter removal. Filiberto Rodarte MD Catheter Placement X-Ray 01/03/17 0000 Signed Impressions: Service Date/Time: Tuesday, January 03, 2017 14:27 - CONCLUSION: Uncomplicated PermaCath placement as above. Filiberto Rodarte MD Chest CT 12/08/16 0000 Signed Impressions: Service Date/Time: Thursday, December 08, 2016 14:02 - CONCLUSION: 1. Bilateral lower lobe consolidating airspace disease. 2. Small to moderate bilateral pleural effusions; larger on the left. 3. Cardiomegaly. 4. Endotracheal and nasogastric tubes in good position. Tutu Christianson MD Renal Ultrasound 12/07/16 0000 Signed Impressions: Service Date/Time: November 07:54 - CONCLUSION: Unremarkable and stable bilateral renal ultrasound. No evidence of hydronephrosis. Baron Medrano MD Procedures Hemodialysis Other Results Laboratory Tests Test 12/06/16 23:25 12/07/16 04:02 12/07/16 06:00 12/07/16 09:05 Total Creatine Kinase 607 U/L Creatine Kinase MB 9.8 NG/ML Creatine Kinase MB % 1.6 % Serum Osmolality 320 MOSM/KG Nasal Screen MRSA (PCR) MRSA NOT DETECTED Urine Color YELLOW Urine Turbidity CLEAR Urine pH 6.0 Urine Specific [place] 1.014 Urine Protein 300 mg/dL Urine Glucose (UA) 70 mg/dL Urine Ketones NEG mg/dL Urine Occult Blood LARGE Urine Nitrite NEG Urine Bilirubin NEG Urine Urobilinogen LESS THAN 2.0 MG/DL Urine Leukocyte Esterase NEG Urine RBC 91 /hpf Urine WBC 4 /hpf Urine Bacteria OCC /hpf Urine Hyaline Casts 2 /lpf Microscopic Urinalysis Comment CATH Urine Eosinophils NONE SEEN /HPF Test 12/07/16 17:30 12/08/16 03:30 12/08/16 04:20 12/09/16 08:45 Urine Random Creatinine 209.8 MG/DL Urine Random Sodium 16 MEQ/L Fibrinogen 747 mg/dL Lactic Acid Level 1.5 mmol/L Blood Urea Nitrogen 69 MG/DL Creatinine 8.09 MG/DL Random Glucose 253 MG/DL Total Protein 6.6 GM/DL Albumin 2.3 GM/DL Calcium Level 8.5 MG/DL Phosphorus Level 5.6 MG/DL Magnesium Level 1.8 MG/DL Alkaline Phosphatase 88 U/L Aspartate Amino Transf (AST/SGOT) 14 U/L Alanine Aminotransferase (ALT/SGPT) 18 U/L Total Bilirubin 0.3 MG/DL Direct Bilirubin 0.1 MG/DL Sodium Level 140 MEQ/L Potassium Level 4.3 MEQ/L Chloride Level 106 MEQ/L Carbon Dioxide Level 16.9 MEQ/L Indirect Bilirubin 0.2 MG/DL Ammonia LESS THAN 10 MCMOL/L Troponin I 2.86 NG/ML Lipase 114 U/L Thyroid Stimulating Hormone 3rd Gen 1.080 uIU/ML B-Type Natriuretic Peptide 320 PG/ML Blood Gas Puncture Site RT RADIAL Blood Gas Patient Temperature 98.6 Blood Gas HCO3 22 mmol/L Blood Gas Base Excess -1.9 mmol/L Blood Gas Oxygen Saturation 92 % Arterial Blood pH 7.41 Arterial Blood Partial Pressure CO2 35 mmHg Arterial Blood Partial Pressure O2 82 mmHg Arterial Blood Oxygen Content 11.3 Vol % Arterial Blood Carboxyhemoglobin 1.2 % Arterial Blood Methemoglobin 2.1 % Blood Gas Hemoglobin 8.6 G/DL Oxygen Delivery Device VENTILATOR Blood Gas Ventilator Setting CPAP+5/PS5 Blood Gas Inspired Oxygen 35 % Test 12/10/16 04:45 12/11/16 12:00 12/12/16 05:05 12/12/16 12:36 Anti-Nuclear Antibody Screen NEG Anti-Proteinase 3 (c-ANCA) LESS THAN 1.0 AI Anti-Myeloperoxidase Ab (p-ANCA) LESS THAN 1.0 AI Complement C3 114 MG/DL Complement C4 41 MG/DL Urine Total Volume 24 Hours 3850 ML Urine Total Protein 24 Hour 6191 MG/24HR Nucleated Red Blood Cells 1 /100 WBC Ovalocytes 1+ Protein Corrected Calcium 7.6 MG/DL Hepatitis A IgM Antibody NEGATIVE Hepatitis B Surface Antigen NEGATIVE Hepatitis B Core IgM Antibody NEGATIVE Hepatitis C Antibody NEGATIVE Test 12/13/16 04:30 12/14/16 05:35 12/17/16 05:28 12/18/16 01:48 [place] Cells 1+ Differential Total Cells Counted 100 Neutrophils % (Manual) 87 % Band Neutrophils % 1 % Lymphocytes % 4 % Monocytes % 4 % Neutrophils # (Manual) 8.4 TH/MM3 Metamyelocytes 1 % Myelocytes 3 % Red Cell Morphology Comment NORMAL Platelet Estimate NORMAL Platelet Morphology Comment NORMAL Test 12/23/16 07:33 01/04/17 14:07 01/26/17 07:40 01/30/17 08:50 Polychromasia 2.1 % Prothrombin Time 10.7 SEC Prothromb Time International Ratio 1.0 RATIO Activated Partial Thromboplast Time 21.7 SEC Neutrophils (%) (Auto) 44.2 % Lymphocytes (%) (Auto) 27.8 % Monocytes (%) (Auto) 17.1 % Eosinophils (%) (Auto) 9.9 % Basophils (%) (Auto) 1.0 % Neutrophils # (Auto) 3.0 TH/MM3 Lymphocytes # (Auto) 1.9 TH/MM3 Monocytes # (Auto) 1.2 TH/MM3 Eosinophils # (Auto) 0.7 TH/MM3 Basophils # (Auto) 0.1 TH/MM3 CBC Comment DIFF FINAL Differential Comment Blood Urea Nitrogen 54 MG/DL 49 MG/DL Creatinine 6.37 MG/DL 6.43 MG/DL Random Glucose 133 MG/DL 137 MG/DL Total Protein 8.1 GM/DL Albumin 3.6 GM/DL Calcium Level 10.0 MG/DL 9.8 MG/DL Phosphorus Level 3.0 MG/DL 3.1 MG/DL Magnesium Level 2.6 MG/DL 2.6 MG/DL Alkaline Phosphatase 91 U/L Aspartate Amino Transf (AST/SGOT) 12 U/L Alanine Aminotransferase (ALT/SGPT) 10 U/L Total Bilirubin 0.4 MG/DL Sodium Level 136 MEQ/L 139 MEQ/L Potassium Level 4.3 MEQ/L 3.8 MEQ/L Chloride Level 98 MEQ/L 100 MEQ/L Carbon Dioxide Level 30.6 MEQ/L 30.7 MEQ/L Hemoglobin A1c 6.7 % Test 02/08/17 07:49 White Blood Count 6.6 TH/MM3 Red Blood Count 4.35 MIL/MM3 Hemoglobin 11.6 GM/DL Hematocrit 36.3 % Mean Corpuscular Volume 83.5 FL Mean Corpuscular Hemoglobin 26.7 PG Mean Corpuscular Hemoglobin Concent 32.0 % Red Cell Distribution Width 16.1 % Platelet Count 274 TH/MM3 Mean Platelet Volume 8.6 FL Blood Urea Nitrogen 66 MG/DL Creatinine 9.17 MG/DL Random Glucose 138 MG/DL Calcium Level 11.0 MG/DL Phosphorus Level 3.5 MG/DL Sodium Level 130 MEQ/L Potassium Level 4.2 MEQ/L Chloride Level 90 MEQ/L Carbon Dioxide Level 26.2 MEQ/L Anion Gap 14 MEQ/L Estimat Glomerular Filtration Rate 6 ML/MIN Objective Remarks GENERAL: This is a well-nourished, well-developed patient, in no apparent distress. SKIN: Warm and dry. HEENT: Normocephalic. Pupils equal round and reactive. Nose without bleeding. Airway patent. NECK: Trachea midline. No JVD. Supple. CARDIOVASCULAR: Regular rate and rhythm without murmurs, gallops, or rubs. Rt SC Permacath. RESPIRATORY: Diminished bases. No wheezes, rales, or rhonchi. GASTROINTESTINAL: Abdomen soft, nondistended. Bowel Sounds hypoactive. Tenderness to palpate lower quadrant. MUSCULOSKELETAL: Extremities without clubbing, cyanosis, facial edema. NEUROLOGICAL: Lethargic/ drowsy. Oriented to place, person. Moves all extremities weakly. Normal speech. Medications and IVs Current Medications Medications (Trade) Dose Ordered Sig/Abby Route Start Time Stop Time Status Last Admin (D50w (Vial) Inj) 25 ml UNSCH PRN IV PUSH 12/07/16 00:45 (Zofran Inj) 4 mg Q6H PRN IV 12/07/16 00:45 (NS Flush) DAILY IVF 12/07/16 15:30 02/08/17 08:51 (NS Flush) UNSCH PRN IVF 12/07/16 15:30 (Peridex 0.12% Liq) 15 ml BID@08,20 MT 12/07/16 20:00 02/05/17 08:00 (NS Flush) 2 ml UNSCH PRN IV FLUSH 12/07/16 15:30 12/12/16 11:32 (NS Flush) 2 ml BID IV FLUSH 12/07/16 21:00 02/09/17 09:22 (Tylenol) 650 mg Q6H PRN PO 12/07/16 15:30 01/30/17 12:24 (Tears Naturale Opth Soln) 1 drop TID EACH EYE 12/07/16 18:00 02/09/17 09:24 Miscellaneous Information 1 Q361D XX 12/07/16 15:30 (Chlorhexidine 2% Cloth) Taper DAILY@04 TOP 12/08/16 04:00 12/04/17 03:59 01/01/17 03:31 (Chlorhexidine 2% Cloth) 3 pack UNSCH PRN TOP 12/07/16 15:30 (Milk Of Magnalvino Liq) 30 ml Q12H PRN PO 12/07/16 15:30 01/18/17 15:48 (Senokot) 17.2 mg Q12H PRN PO 12/07/16 15:30 01/08/17 22:36 (Aspirin Chew) 81 mg DAILY CHEW 12/08/16 12:00 02/09/17 09:23 (Trandate Inj) 20 mg Q2H PRN IV 12/10/16 00:15 12/14/16 08:05 (Coreg) 6.25 mg Q12HR PO 12/10/16 10:00 02/09/17 09:23 (Phoslo) 1,334 mg TID PO 12/10/16 13:00 02/09/17 09:23 (Rocaltrol) 0.5 mcg DAILY PO 12/10/16 12:45 Future Hold 01/23/17 12:52 (Symbicort 160-4.5 Inh) 1 puff Q12HR INH 12/11/16 12:00 02/09/17 09:24 (Spiriva Inh) 18 mcg DAILY INH 12/11/16 12:00 02/08/17 08:48 (Norvasc) 10 mg DAILY PO 12/11/16 15:15 02/09/17 09:23 (Apresoline Inj) 20 mg Q4H PRN IV PUSH 12/11/16 15:15 12/18/16 04:26 (Catapres) 0.3 mg Q8H PO 12/12/16 08:00 02/09/17 00:12 Sodium Chloride 1,000 ml @ 0 mls/hr Q0M PRN IV 12/12/16 12:11 02/06/17 11:30 (Heparin Inj) 8,000 units UNSCH PRN IVF 12/12/16 12:15 Future hold 01/06/17 10:58 Sodium Chloride 1,000 ml @ 200 mls/hr Q5H PRN IV 12/12/16 12:11 Sodium Chloride 1,000 ml @ 0 mls/hr Q0M PRN IV 12/12/16 12:11 12/12/16 17:04 (Mannitol Inj) 12.5 gm UNSCH PRN IV 12/12/16 12:15 (Albumin 25% Inj) 25 gm UNSCH PRN IV 12/12/16 12:15 02/06/17 11:30 (NS Flush) 5 ml UNSCH PRN IV FLUSH 12/12/16 12:15 12/26/16 10:34 (Heparin Inj) UNSCH PRN .XX 12/12/16 12:15 02/06/17 11:30 (Gentamicin (Dialysis) Inj) 20 mg UNSCH PRN IV 12/12/16 12:15 02/08/17 12:31 (Zofran Inj) 4 mg UNSCH PRN IV 12/12/16 12:15 (Benadryl) 25 mg UNSCH PRN PO 12/12/16 12:15 02/06/17 06:14 (Nitrostat Sl) 0.4 mg UNSCH PRN SL 12/12/16 12:15 (Catapres) 0.1 mg UNSCH PRN PO 12/12/16 12:15 12/24/16 18:49 (Epogen Inj) 10,000 units UNSCH PRN IV 12/12/16 12:15 02/08/17 12:31 (Gelfoam 12 Mm/7 Mm Top) 1 foam UNSCH PRN TOP 12/12/16 12:15 (Apresoline) 50 mg Q8HR PO 12/26/16 14:00 02/09/17 05:05 (NS Flush) UNSCH PRN IVF 01/03/17 16:15 (Heparin Inj) UNSCH PRN IV FLUSH 01/03/17 16:15 (Heparin Inj) 5,000 units Q12HR SQ 01/07/17 09:00 Future hold 02/09/17 09:23 (Mucinex Er) 600 mg BID PO 01/12/17 10:30 02/09/17 09:23 (Cepacol Extra Ha (Sugar Free)) 1 lozenge Q2HR PRN BUCCAL 01/13/17 13:00 (Flomax) 0.4 mg HS PO 01/14/17 21:00 02/08/17 21:49 (Fleets Enema (Adult)) 133 ml UNSCH PRN RECTAL 01/18/17 18:30 01/22/17 11:57 (NovoLIN R SUPPLEMENTAL SCALE) 1 ACHS SQ 01/19/17 12:00 02/09/17 08:00 (Narcan Inj) 0.4 mg UNSCH PRN IV PUSH 01/21/17 13:00 (Dulcolax Supp) 10 mg DAILY PRN RECTAL 01/21/17 13:00 01/30/17 17:49 (Lactulose Liq) 30 ml DAILY PRN PO 01/21/17 13:00 02/09/17 05:05 (Sara-Colace) 1 tab BID PO 01/21/17 21:00 02/20/17 20:59 02/09/17 09:23 (Miralax) 17 gm DAILY PO 01/24/17 09:00 02/08/17 08:53 (Duoneb Neb) 1 ampule Q4HR NEB PRN NEB 01/28/17 16:00 02/06/17 16:56 (Levemir Inj) 39 units HS SQ 02/04/17 21:00 02/08/17 22:02 (NovoLOG INJ) 9 units TIDAC SQ 02/04/17 17:00 02/09/17 09:44 (Percocet 5-325 Mg) 1 tab Q4H PRN PO 02/05/17 13:00 02/08/17 18:23 A/P Assessment and Plan Mr. Mehta is a 66-year-old male with medical history significant for hypertension and diabetes and CVA who presented to the hospital with a chief complaint of shortness of breath and chest pain. The patient was diagnosed with NSTEMI. Echo was performed which was concerning for thrombus, but study was limited and a repeat was suggested. He has history of chronic kidney disease but worsening of his creatinine was noted. He was seen and evaluated by nephrology who started the patient on hemodialysis. CKD stage IV Acute renal failure progressing to ESRD - nephrology on board, started on hemodialysis TTHSa - PermaCath placed. Vascular surgery unable to find adequate vein for AVF. - Kidney biopsy on 01/03/2017 --> diffuse and nodular diabetic glomerulosclerosis, segmental and global glomerular sclerosis, interstitial fibrosis and tubular atrophy severe. - Will need HD in outpatient. Awaiting HD set up in outpatient. S/P acute respiratory failure secondary to bilateral lower lobe pneumonias/ community acquired - resolved continue bronchodilator, Mucolytic, and incentive spirometry. COPD - Continue Symbicort and Spiriva - Continue albuterol neb. - Not on exacerbation. NSTEMI Hypertension - Echo performed December 07 showed distinct regional wall abnormalities with a possible clot in the apex. - echo with Definity contrast did not appear to show any clots in LV. - Cardiology was consulted, stable from a cardiac standpoint and recommended continued aggressive risk factor modification - ASA 81 mg daily. Coreg 6.25 mg BID. Norvasc 10 mg daily. Clonidine to 0.3 mg po TID and hydralazine 50 mg by mouth daily 8 hour Diabetes mellitus, with hyperglycemia - Continue Levemir increased to 39 units QHS and sliding scale, also pre meal to 9 units. - HgA1C 6.7 - Improving. Better control BPH - continue Tamsulosin. Stable. Deconditioning: PT recommends SNF, generalized weakness likely due to prolonged hospitalization and multiple medical conditions as above. 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 Constipation, Abdominal pain - Pericolace BID - add Miralax daily, add bisacodyl - monitor for BM Heparin SQ for DVT prophylaxis. No changes to anterior assessment . Discharge Planning Discharge home and continue Dialysis in this facility. Kamaljit Urias MD Feb 09, 2017 10:51 am
[2017-02-09] MEDS ORDERED: VENTAER INH (11:23)
[2017-02-09] MEDS ORDERED: LANTINJ SQ (11:23)
[2017-02-09] MEDS ORDERED: CALC667C PO (11:23)
[2017-02-09] MEDS ORDERED: NOVOLOGP2 SQ (11:23)
[2017-02-09] MEDS ORDERED: CLON-481 PO (11:23)
[2017-02-09] MEDS ORDERED: ASPI81CH25 CHEW (11:23)
[2017-02-09] MEDS ORDERED: OXYC1TAB63 PO (11:23)
[2017-02-09] MEDS ORDERED: CALC.25 PO (11:23)
[2017-02-09] MEDS ORDERED: SYMB160A INH (11:23)
[2017-02-09] MEDS ORDERED: HYDR-3800 PO (11:23)
[2017-02-09] MEDS ORDERED: CARV6.25 PO (11:23)
[2017-02-09] MEDS ORDERED: AMLO10TA2 PO (11:23)
[2017-02-09] MEDS ORDERED: SPIRCAP INH (11:23)
[2017-02-09] MEDS ORDERED: TAMS5CAP PO (11:23)
[2017-02-09 12:00] VITALS: BP 132/83; PULSE 101; RESP 20; TEMP 99; O2SAT 99
--- NOTE | 2017-02-10 17:02 | HHI.DS ---
Discharge Summary Admission Date Dec 07, 2016 at 00:45 Discharge Date: Feb 09, 2017 Admitting Diagnosis sepsis, NSTEMI, pneumonia, renal failure, respiratory distress (1) Respiratory failure ICD Code: J96.90 - Respiratory failure, unspecified, unspecified whether with hypoxia or hypercapnia Diagnosis: Principal Status: Acute (2) Sepsis ICD Code: A41.9 - Sepsis, unspecified organism Diagnosis: Principal Status: Acute (3) Pneumonia ICD Code: J18.9 - Pneumonia, unspecified organism Diagnosis: Principal Status: Acute (4) left atrial thrombus Diagnosis: Principal Status: Acute (5) NSTEMI (non-ST elevated myocardial infarction) ICD Code: I21.4 - Non-ST elevation (NSTEMI) myocardial infarction Diagnosis: Principal Status: Resolved (6) ARF (acute renal failure) ICD Code: N17.9 - ARF (acute renal failure) Diagnosis: Principal Status: Acute (7) Diabetes mellitus ICD Code: E11.9 - Diabetes mellitus Diagnosis: Secondary Status: Chronic (8) Severe chronic obstructive pulmonary disease ICD Code: J44.9 - Chronic obstructive pulmonary disease, unspecified Diagnosis: Principal Status: Acute (9) CKD (chronic kidney disease) stage 4, GFR 15-29 ml/min ICD Code: N18.4 - Chronic kidney disease, stage 4 (severe) Diagnosis: Secondary Status: Acute Procedures Echo 12/07/2016 Mildly dilated left ventricle. Wall thickness is normal. The left ventricular systolic function is normal with an estimated ejection fraction is 45-50%. There is distinct regional wall motion abnormalities with akinetic apex and possibly clot at the apex. Consider repeating study with contrast/Definity to better asses apex The right ventriclar size is upper limits of normal. The left atrial size is moderately dilated. The right atrial size is moderately dilated. [id number]-hdyupflq mitral valve regurgitation. There is mild tricuspid valve regurgitation. There is estimated mild pulmonary hypertension present (range 40-50 mmHg). The pulmonary valve is not well visualized. The inferior vena cava is dilated. There is less than 50% respiratory change in dimension of the inferior vena cava (abnormal). Brief History - From Admission This patient is bangladeshi speaking only, and his family was not available to assist in interpretation. In addition, he is in respiratory distress on my evaluation, and additional history is unobtainable from the patient. Per report , this is a 66yM with a history of CHF and prior NSTEMI who presented for shortness of breath. He was hypoxic in ER and placed on BiPAP. He was febrile in the ER. His laboratory data is significant for a leukocytosis, lactic acidosis, Cr 7.7, troponin of 2. CBC/BMP: 02/08/17 0749 02/08/17 0749 Significant Findings Laboratory Tests Test 02/08/17 07:49 Red Blood Count 4.35 MIL/MM3 (4.50-5.90) Hemoglobin 11.6 GM/DL (13.0-17.0) Hematocrit 36.3 % (39.0-51.0) Mean Corpuscular Hemoglobin 26.7 PG (27.0-34.0) Blood Urea Nitrogen 66 MG/DL (7-18) Creatinine 9.17 MG/DL (0.60-1.30) Random Glucose 138 MG/DL (74-106) Calcium Level 11.0 MG/DL (8.5-10.1) Sodium Level 130 MEQ/L (136-145) Chloride Level 90 MEQ/L (98-107) Estimat Glomerular Filtration Rate 6 ML/MIN (>89) Imaging Last Impressions Venous Access Device Injection 01/30/17 0000 Signed Impressions: Service Date/Time: Monday, January 30, 2017 00:00 - CONCLUSION: Right IJ PermCath is in excellent position and appears to be functioning appropriately. Filiberto Rodarte MD Chest X-Ray 01/28/17 0000 Signed Impressions: Service Date/Time: Saturday, January 28, 2017 14:00 - CONCLUSION: Normal examination. Right-sided dual-lumen catheter in good position. Yoni Bay MD Carotid Artery Ultrasound 01/10/17 0000 Signed Impressions: Service Date/Time: Tuesday, January 10, 2017 12:25 - CONCLUSION: Negative examination for a hemodynamically significant carotid stenosis. Marek Burnett MD FACR Upper Extremity Ultrasound 01/05/17 0000 Signed Impressions: Service Date/Time: Thursday, January 05, 2017 18:56 - CONCLUSION: Normal examination. Ji Martinez MD Renal Biopsy CT 01/03/17 Signed Impressions: Service Date/Time: Tuesday, January 03, 2017 13:28 - CONCLUSION: Uncomplicated CT guided biopsy. Ji Cedillo MD Central Venous Line 01/03/17 Signed Impressions: Service Date/Time: Tuesday, January 03, 2017 00:00 - CONCLUSION: Uncomplicated catheter removal. Filiberto Rodarte MD Catheter Placement X-Ray 01/03/17 Signed Impressions: Service Date/Time: Tuesday, January 03, 2017 14:27 - CONCLUSION: Uncomplicated PermaCath placement as above. Filiberto Rodarte MD Chest CT 12/08/16 Signed Impressions: Service Date/Time: Thursday, December 08, 2016 14:02 - CONCLUSION: 1. Bilateral lower lobe consolidating airspace disease. 2. Small to moderate bilateral pleural effusions; larger on the left. 3. Cardiomegaly. 4. Endotracheal and nasogastric tubes in good position. Tutu Christianson MD Renal Ultrasound 12/07/16 Signed Impressions: Service Date/Time: November 07:54 - CONCLUSION: Unremarkable and stable bilateral renal ultrasound. No evidence of hydronephrosis. Baron Medrano MD PE at Discharge GENERAL: This is a well-nourished, well-developed patient, in no apparent distress. SKIN: Warm and dry. HEENT: Normocephalic. Pupils equal round and reactive. Nose without bleeding. Airway patent. NECK: Trachea midline. No JVD. Supple. CARDIOVASCULAR: Regular rate and rhythm without murmurs, gallops, or rubs. Rt SC Permacath. RESPIRATORY: Diminished bases. No wheezes, rales, or rhonchi. GASTROINTESTINAL: Abdomen soft, nondistended. Bowel Sounds hypoactive. Tenderness to palpate lower quadrant. MUSCULOSKELETAL: Extremities without clubbing, cyanosis, facial edema. NEUROLOGICAL: Oriented to place, person. Moves all extremities weakly. Normal speech. Transfer Summary This patient is bangladeshi speaking only, and his family was not available to assist in interpretation. In addition, he is in respiratory distress on my evaluation, and additional history is unobtainable from the patient. Per report , this is a 66yM with a history of CHF and prior NSTEMI who presented for shortness of breath. He was hypoxic in ER and placed on BiPAP. He was febrile in the ER. His laboratory data is significant for a leukocytosis, lactic acidosis, Cr 7.7, troponin of 2. SUBJ 12/08: Patient was intubated after known yesterday for worsening respiratory failure. Currently remains intubated sedated. His chest x-ray shows worsening left-sided effusion/infiltrate. I have requested STAT CT chest to better evaluate infiltrate. Hemoglobin dropped from 7.7-6.6. Received 2 units PRBC 12/09: Remains intubated sedated with fentanyl and Precedex. Wakes up easily and nods his head. Hemoglobin stable at 8. No evidence of active bleeding. We 'll resume heparin. Chest x-ray shows persistent left lower lobe infiltrate effusion. Attempt CPAP trial again today. Creatinine remains elevated but slightly improved from 8-7.7 UO 1.2 L in 24 hours 12/10: Patient was extubated yesterday tolerating well respiratory clifford. Good oxygen saturation. Chest x-ray shows improving infiltrates. Urine output 2.2L in 24 hours. Creatinine remains elevated at 7.7. No acute indication for hemodialysis 12/11: Oxygen saturation about 95% on room air, has bilateral scattered wheezing. Chest x-ray shows increased bilateral basilar infiltrates/effusion. BUN/creatinine essentially same. UO 2.2 L in 24 hours. Give Bumex 2 mg IVP x1. Continues to fail swallow eval, place NGT 12/12: Received 5 mg total Bumex yesterday. Urine output 3.5 L but BUN/ creatinine remains elevated (120/7). Discussed with Dr. Kelsey, will start hemodialysis today. I'll check an aPTT after holding heparin 4 hours. NG tube placed yesterday into feeds started due to continued aspiration on swallow eval 12/13: Started on hemodialysis yesterday liter fluid removed. Repeat hemodialysis today. BUN/creatinine slightly improved but still remains high. UO 1.1 L in 24 hours Hospital Course Follow-up visit acute renal failure going on end-stage renal disease on hemodialysis, COPD, NSTEMI. Stable in his bedroom, continue awaiting for Placement, nurse states he may be going this next Sunday to home and comes back to this facility for Hemodialysis. Seen in his bedroom and discussed with patient, nurse Miss De La Cruz and Charge nurse, and Icing And Glaze [employer] the patient will continue HD in this facility but he will go home and comes back three times a week No nausea, vomit or diarrhea. Assessment and Plan Mr. Mehta is a 66-year-old male with medical history significant for hypertension and diabetes and CVA who presented to the hospital with a chief complaint of shortness of breath and chest pain. The patient was diagnosed with NSTEMI. Echo was performed which was concerning for thrombus, but study was limited and a repeat was suggested. He has history of chronic kidney disease but worsening of his creatinine was noted. He was seen and evaluated by nephrology who started the patient on hemodialysis. CKD stage IV Acute renal failure progressing to ESRD - nephrology on board, started on hemodialysis TTHSa - PermaCath placed. Vascular surgery unable to find adequate vein for AVF. - Kidney biopsy on 01/03/2017 --> diffuse and nodular diabetic glomerulosclerosis, segmental and global glomerular sclerosis, interstitial fibrosis and tubular atrophy severe. - Will need HD in outpatient. Awaiting HD set up in outpatient. S/P acute respiratory failure secondary to bilateral lower lobe pneumonias/ community acquired - resolved continue bronchodilator, Mucolytic, and incentive spirometry. COPD - Continue Symbicort and Spiriva - Continue albuterol neb. - Not on exacerbation. NSTEMI Hypertension - Echo performed December 07 showed distinct regional wall abnormalities with a possible clot in the apex. - echo with Definity contrast did not appear to show any clots in LV. - Cardiology was consulted, stable from a cardiac standpoint and recommended continued aggressive risk factor modification - ASA 81 mg daily. Coreg 6.25 mg BID. Norvasc 10 mg daily. Clonidine to 0.3 mg po TID and hydralazine 50 mg by mouth daily 8 hour Diabetes mellitus, with hyperglycemia - Continue Levemir increased to 39 units QHS and sliding scale, also pre meal to 9 units. - HgA1C 6.7 - Improving. Better control BPH - continue Tamsulosin. Stable. Deconditioning: PT recommends SNF, generalized weakness likely due to prolonged hospitalization and multiple medical conditions as above. 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 Constipation, Abdominal pain - Pericolace BID - add Miralax daily, add bisacodyl - monitor for BM Heparin SQ for DVT prophylaxis. No changes to anterior assessment . Discharge Planning Discharge home and continue Dialysis in this facility. Pt Condition on Discharge: Good Discharge Disposition: Discharge Home Discharge Time: > 30 minutes Discharge Instructions DIET: Follow Instructions for: Heart Healthy Diet, Diabetic Diet Speech Therapy-Diet Recommends: Soft Activities you can perform: Regular-No Restrictions Kamaljit Urias MD Feb 10, 2017 17:02
== END 2017-02-09 16:40 | disposition home or self-care (01) | DRG 853 ==
LOC: NEPE 23:13 → NEDA 12-07 00:45 → NEDH 12-07 04:37 → HIMN 12-07 05:40 → N04B 12-14 17:55
PROVIDERS: ADMIT Internal Medicine; ATTEND Internal Medicine
PROC: 0BH17EZ Insertion of Endotracheal Airway into Trachea, Via Natural or Artificial Opening (ICD-10-PCS; principal; 2016-12-07)
PROC: 5A1945Z Respiratory Ventilation, 24-96 Consecutive Hours (ICD-10-PCS; 2016-12-07)
PROC: 5A09357 Assistance with Respiratory Ventilation, Less than 24 Consecutive Hours, Continuous Positive Airway Pressure (ICD-10-PCS; 2016-12-07)
PROC: 0D9670Z Drainage of Stomach with Drainage Device, Via Natural or Artificial Opening (ICD-10-PCS; 2016-12-07)
PROC: 05HN33Z Insertion of Infusion Device into Left Internal Jugular Vein, Percutaneous Approach (ICD-10-PCS; 2016-12-07)
PROC: 0T9B70Z Drainage of Bladder with Drainage Device, Via Natural or Artificial Opening (ICD-10-PCS; 2016-12-07)
PROC: 30233N1 Transfusion of Nonautologous Red Blood Cells into Peripheral Vein, Percutaneous Approach (ICD-10-PCS; 2016-12-08)
PROC: 05HM33Z Insertion of Infusion Device into Right Internal Jugular Vein, Percutaneous Approach (ICD-10-PCS; 2016-12-12)
PROC: 5A1D70Z Performance of Urinary Filtration, Intermittent, Less than 6 Hours Per Day (ICD-10-PCS; 2016-12-12)
PROC: 0TB03ZX Excision of Right Kidney, Percutaneous Approach, Diagnostic (ICD-10-PCS; 2017-01-03)
PROC: 05JY0ZZ Inspection of Upper Vein, Open Approach (ICD-10-PCS; 2017-01-11)
DX: A41.9 Sepsis, unspecified organism (principal); J18.9 Pneumonia, unspecified organism; I21.4 Non-ST elevation (NSTEMI) myocardial infarction; J96.01 Acute respiratory failure with hypoxia; N17.9 Acute kidney failure, unspecified; I13.2 Hypertensive heart and chronic kidney disease with heart failure and with stage 5 chronic kidney disease, or end stage renal disease; I13.0 Hypertensive heart and chronic kidney disease with heart failure and stage 1 through stage 4 chronic kidney disease, or unspecified chronic kidney disease; N18.6 End stage renal disease; I27.20 Pulmonary hypertension, unspecified; E87.2 Acidosis; I69.354 Hemiplegia and hemiparesis following cerebral infarction affecting left non-dominant side; J44.0 Chronic obstructive pulmonary disease with (acute) lower respiratory infection; J44.1 Chronic obstructive pulmonary disease with (acute) exacerbation; I50.9 Heart failure, unspecified; E66.01 Morbid (severe) obesity due to excess calories; I08.1 Rheumatic disorders of both mitral and tricuspid valves; E11.21 Type 2 diabetes mellitus with diabetic nephropathy; D64.9 Anemia, unspecified; E78.00 Pure hypercholesterolemia, unspecified; I25.2 Old myocardial infarction; E11.22 Type 2 diabetes mellitus with diabetic chronic kidney disease; I25.10 Atherosclerotic heart disease of native coronary artery without angina pectoris; E86.1 Hypovolemia; I45.10 Unspecified right bundle-branch block; R65.20 Severe sepsis without septic shock; Z99.2 Dependence on renal dialysis; I16.0 Hypertensive urgency; E11.65 Type 2 diabetes mellitus with hyperglycemia; I95.3 Hypotension of hemodialysis; K59.00 Constipation, unspecified; N40.1 Benign prostatic hyperplasia with lower urinary tract symptoms; R33.8 Other retention of urine; R31.0 Gross hematuria; Z79.4 Long term (current) use of insulin
CPT/HCPCS: 31500; 36430; 36556; 36558; 36598; 36600; 50200; 51702; 71010; 71250; 76775; 76937; 77001; 77012; 80048; 80053; 80074; 80076; 81001; 82140; 82550; 82552; 82570; 82805; 82947; 82948; 83036; 83605; 83690; 83735; 83880; 83930; 84100; 84132; 84157; 84300; 84443; 84484; 85007; 85025; 85027; 85384; 85610; 85730; 86021; 86038; 86160; 86850; 86900; 86901; 86920; 87040; 87070; 87205; 87449; 87641; 90935; 93005; 93306; 93308; 93880; 93971; 94002; 94003; 94150; 94640; 94664; 94667; 94668; 96365; 96374; 96375; 99152; C1750; C1769; C9113; J0360; J0456; J0610; J0690; J0696; J1580; J1644; J1815; J1940; J2060; J2250; J2270; J2370; J2920; J2930; J3010; J3370; J7030; J7050; J7512; J7613; P9016; P9047; Q4081